=== PATIENT | female | born 1975 | race Caucasian/White ===

== ENCOUNTER 2016-07-15 15:37 | Emergency (ER) | payer OTHER ==
[2016-07-15] MEDS ORDERED: PROCHLORPERAZINE INJ 5 MG/ML 2 ML VIAL IV ONE (17:13)
[2016-07-15 17:20] LABS: Hematocrit 40 % (35-47); Hemoglobin 12.9 g/dl (12.0-16.0); Mean Corpuscular HGB Conc 33 g/dl (31-36); Mean Corpuscular Hemoglobin 27 pg (27-31); Mean Corpuscular Volume 82 fL (80-97); Mean Platelet Volume 11 um3 (7.4-10.4); Red Blood Count 4.83 10^6/ul (4.0-5.4); Red Cell Distribution Width 15 % (10.5-15); White Blood Count 5.3 10^3/ul (3.5-10.8)
[2016-07-15 17:33] LABS: Albumin 4.2 g/dL (3.2-5.2); BUN/Creatinine Ratio 12.5 (8-20); Calcium 9.8 mg/dL (8.6-10.3); EGFR African American 101.2 (>60); EGFR Non-African American 78.7 (>60); Globulin 3.2 g/dL (2-4); Potassium 3.5 mmol/L (3.5-5.0); Total Bilirubin 0.2 mg/dL (0.2-1.0); Total Protein 7.4 g/dL (6.4-8.9)
--- NOTE | 2016-07-15 17:37 | RAD ---
Indication: Pain behind the right, history of aneurysm. CT of the brain was performed without IV contrast. Ventricular structures are midline. No midline shift is noted. The extraction spaces are unremarkable. There is no evidence of intracranial mass or hemorrhage. No other high or low density lesions are identified. IMPRESSION: No intracranial mass or hemorrhage is noted.
[2016-07-15] MEDS ORDERED: Iohexol 350* (CONTRAST) 500 ML MDV IV ONE (18:04)
[2016-07-15] MEDS ORDERED: Ketorolac INJ* 60 MG/2 ML VIAL IV PUSH ONE (19:14)
[2016-07-15] MEDS ORDERED: diPHENhydraMINE IV* 25 MG in NS 0.9% 50 ML* 50 ML IVPB ONE (19:18)
[2016-07-15] MEDS ORDERED: PROCHLORPERAZINE INJ 5 MG/ML 2 ML VIAL IV PRN (19:19)
--- NOTE | 2016-07-15 19:31 | RAD ---
Indication: History of aneurysm, pain behind the right eye. CTA of the head was performed on IV contrast administration. Coronal and sagittal reconstructed images were obtained. Administered 63.7 ml of OMNIPAQUE 350 mgi/ml was given according to hospital protocol. The intracranial carotid arteries demonstrates no evidence of carotid artery dissection. There is a stent in the right cavernous portion of the right internal carotid artery. No aneurysmal dilatation is noted. No branch occlusion is identified. The anterior and middle cerebral arteries are otherwise unremarkable. No branch occlusion is noted. The basilar and posterior cerebral arteries are unremarkable. IMPRESSION: No aneurysmal dilatation is noted. There is a internal carotid artery stent in the intracavernous portion of the right internal carotid artery. No branch occlusion is identified.
[2016-07-15] MEDS ORDERED: Prochlorperazine TAB* 10 MG PO ONE (20:19)
[2016-07-15 21:37] VITALS: BP 141/86
--- NOTE | 2016-07-15 23:54 | ED ---
Headache - HPI Summary HPI Summary: Patient presents to the ED with a complaint of a migraine behind the right eye which is worse with bright lights and has associated N/V. Patient denies fever, neck pain or stiffness, or scotomas. 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 Immediately following, developed 2-3 months of recurrent migraines improved with Imitrex. Since 1 year ago she has not experienced any migraines and has not needed Imitrex. She presents today with a 8/10 pain located on the R side (behind the eye) and has concern for recurrent aneurysm. She states her original dx of aneurysm was associated with a ENCISO of 10/10 pain, and states this feels similar but with less pain overall. She notes that she has been dehydrated lately, which may have triggered a migraine. She is followed by Dr. Pérez. - History Of Current Complaint Chief Complaint: EDHeadache Stated Complaint: HEADACHES/VOMITTING Time Seen by Provider: 07/15/16 16:18 Hx Obtained From: Patient Hx Last Menstrual Period: 5 yrs ago Onset/Duration: Sudden Onset Initially Headache Was: Initial Pain Scale(0-10)= - 8/10, Moderate Currently Pain Is: Current Pain Scale(0-10)= - 8/10, Moderate Timing: Constant Character: Dull, Pressure, Migraine Location of Headache: Other: - behind the eye Aggravating Factor: Bright Lights Associated Signs And Symptoms: Other (Noted In Comments) - photophobia Related History: Similar Episode/DX As: - previous aneurysm pain - Risk Factors SAH Risk Factors: Hypertension Meningitis Risk Factors: Negative SDH Risk Factors: Negative Temporal Arteritis Risk Factors: Female, - Allergies/Home Medications Allergies/Adverse Reactions: Allergies Allergy/AdvReac Type Severity Reaction Status Date / Time Amoxicillin [From Augmentin] Allergy Unknown Verified 07/15/16 15:46 Reaction Details Clavulanic Acid Allergy Unknown Verified 07/15/16 15:46 [From Augmentin] Reaction Details Phenytoin [From Dilantin] Allergy Shortness Verified 07/15/16 15:46 of Breath [place] Allergy Swelling Verified 07/15/16 15:46 Of Face,Lips,& Throat PMH/Surg Hx/FS Hx/Imm Hx Endocrine/Hematology History: Reports: Hx Anticoagulant Therapy - ASA daily, Hx Thyroid Disease Denies: Hx Diabetes Cardiovascular History: Reports: Hx Aneurysm, Hx Angina, Hx Deep Vein Thrombosis - states in leg one month ago, Hx Hypercholesterolemia, Hx Hypertension, Other Cardiovascular Problems/Disorders - DVT, MURMUR, H PYLORI Denies: Hx Angioplasty, Hx Atrial Fibrillation, Hx Congestive Heart Failure, Hx Coronary Artery Disease, Hx Myocardial Infarction, Hx Pacemaker/ICD Respiratory History: Reports: Hx Asthma, Hx Chronic Obstructive Pulmonary Disease (COPD), Hx Seasonal Allergies GI History: Reports: Hx Gastroesophageal Reflux Disease Denies: Other GI Disorders History: Reports: Other Problems/Disorders - states she thinks she has kidney stones Denies: Hx Renal Disease Musculoskeletal History: Reports: Hx Back Problems - slipped disks Sensory History: Reports: Hx Contacts or Glasses Denies: Hx Hearing Aid Opthamlomology History: Reports: Hx Contacts or Glasses Neurological History: Reports: Hx Headaches, Hx Migraine, Hx Transient Ischemic Attacks (TIA) - Unconfirmed by patient, Other Neuro Impairments/Disorders - Cerebral Anuerism, Bi-Polar Denies: Hx Dementia, Hx Seizures Psychiatric History: Reports: Hx Anxiety, Hx Depression, Hx Bipolar Disorder Denies: Hx Panic Disorder, Hx Substance Abuse - Surgical History Surgery Procedure, Year, and Place: , GALLBLADDER, TEETH REMOVED, TUBAL LIGATION, APPENDIX AUG 15 2014. BRAIN- ANEURYSM -STENTS/COIL [facility] -06/01/2016- Hx Anesthesia Reactions: No - Immunization History Date of Tetanus Vaccine: 2013 Date of Influenza Vaccine: 2013 Infectious Disease History: Yes Infectious Disease History: Denies: Hx Hepatitis, Hx Human Immunodeficiency Virus (HIV), Traveled Outside the [place] in Last 30 Days - Family History Known Family History: Positive: Cardiac Disease Family History: Positive fhx of CAD - Social History Occupation: Unemployed Lives: With Family Alcohol Use: Rare Hx Substance Use: No Substance Use Type: Reports: None, Prescribed Hx Tobacco Use: Yes Smoking Status (MU): Heavy Every Day Tobacco Smoker Type: Cigarettes Amount Used/How Often: 5 cig a day currently, was doing 1.5 packs per day before Length of Time of Smoking/Using Tobacco: 20+ years Have You Smoked in the Last Year: Yes Review of Systems Constitutional: Negative Positive: Photophobia Cardiovascular: Negative Respiratory: Negative Gastrointestinal: Negative Musculoskeletal: Negative Skin: Negative Positive: Headache - 8/10 pain Psychological: Normal All Other Systems Reviewed And Are Negative: Yes Physical Exam Triage Information Reviewed: Yes Vital Signs On Initial Exam: Initial Vitals Temp Pulse Resp BP Pulse Ox 99.1 F 99 16 128/74 97 07/15/16 15:47 07/15/16 15:47 07/15/16 15:47 07/15/16 15:47 07/15/16 15:47 Vital Signs Reviewed: Yes Appearance: Positive: Well-Appearing, No Pain Distress, Well-Nourished Skin: Positive: Warm, Dry - dry mucous membranes Head/Face: Positive: Normal Head/Face Inspection Eyes: Positive: Normal, EOMI, Conjunctiva Clear Neck: Positive: Supple, Nontender, No Lymphadenopathy Respiratory/Lung Sounds: Positive: Clear to Auscultation, Breath Sounds Present Cardiovascular: Positive: Normal Abdomen Description: Positive: Nontender, No Organomegaly Musculoskeletal: Positive: Normal, Strength/ROM Intact Neurological: Positive: Normal, Sensory/Motor Intact, Reflexes Intact, Normal Gait, Finger to Nose - OK, Facial Symmetry, Speech Normal Psychiatric: Positive: Normal AVPU Assessment: Alert - Carl Coma Scale Best Eye Response: 4 - Spontaneous Best Motor Response: 6 - Obeys Commands Best Verbal Response: 5 - Oriented Coma Scale Total: 15 Diagnostics - Vital Signs Vital Signs Temp Pulse Resp BP Pulse Ox 07/15/16 21:40 98.1 F 88 14 141/86 07/15/16 21:30 88 141/86 95 07/15/16 21:00 87 125/75 90 07/15/16 20:30 85 112/57 93 07/15/16 20:00 84 128/81 93 07/15/16 19:30 93 132/94 93 07/15/16 19:10 82 95 07/15/16 15:47 99.1 F 99 16 128/74 97 - Laboratory Lab Results: Lab Results 07/15/16 07/15/16 07/15/16 Range/Units 16:50 16:50 16:50 WBC 5.3 (3.5-10.8) 10^3/ul RBC 4.83 (4.0-5.4) 10^6/ul Hgb 12.9 (12.0-16.0) g/dl Hct 40 (35-47) % MCV 82 (80-97) fL MCH 27 (27-31) pg MCHC 33 (31-36) g/dl RDW 15 (10.5-15) % Plt Count 182 (150-450) 10^3/ul MPV 11 H (7.4-10.4) um3 Neut % (Auto) 65.0 (38-83) % Lymph % (Auto) 22.6 L (25-47) % [place] % (Auto) 11.6 H (1-9) % Eos % (Auto) 0.3 (0-6) % Baso % (Auto) 0.5 (0-2) % Absolute Neuts (auto) 3.4 (1.5-7.7) 10^3/ul Absolute Lymphs (auto) 1.2 (1.0-4.8) 10^3/ul Absolute Monos (auto) 0.6 (0-0.8) 10^3/ul Absolute Eos (auto) 0 (0-0.6) 10^3/ul Absolute Basos (auto) 0 (0-0.2) 10^3/ul Absolute Nucleated RBC 0 10^3/ul Nucleated RBC % 0 INR (Anticoag Therapy) 0.99 (0.89-1.11) APTT 30.2 (26.0-36.3) seconds Sodium 137 (133-145) mmol/L Potassium 3.5 (3.5-5.0) mmol/L Chloride 105 (101-111) mmol/L Carbon Dioxide 24 (22-32) mmol/L Anion Gap 8 (2-11) mmol/L BUN 10 (6-24) mg/dL Creatinine 0.80 (0.51-0.95) mg/dL Est GFR ( Amer) 101.2 (>60) Est GFR (Non-Af Amer) 78.7 (>60) BUN/Creatinine Ratio 12.5 (8-20) Glucose 129 H (70-100) mg/dL Calcium 9.8 (8.6-10.3) mg/dL Total Bilirubin 0.20 (0.2-1.0) mg/dL AST 18 (13-39) U/L ALT 26 (7-52) U/L Alkaline Phosphatase 103 (34-104) U/L Total Protein 7.4 (6.4-8.9) g/dL Albumin 4.2 (3.2-5.2) g/dL Globulin 3.2 (2-4) g/dL Albumin/Globulin Ratio 1.3 (1-3) Result Diagrams: 07/15/16 16:50 07/15/16 16:50 Lab Statement: Any lab studies that have been ordered have been reviewed, and results considered in the medical decision making process. - CT No standard instances CT Interpretation: No Acute Changes CT Interpretation Completed By: Radiologist - no changes seen on CT of brain or CTA Headache Course/Dx - Course Course Of Treatment: Patient sent to CT brain. No bleed. Sent to CTA. No acute changes. No focal deficits. Neuro exam WNL. Patient given compazine, benadryl. Patient feeling improved. Sent home with prescription for Compazine. Encouraged benadryl and ibuprofen. No fever, neck pain or stiffness , or scotomas. 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 - Diagnoses Differential Diagnosis/HQI/PQRI: TIA, Migraine, Sinus Headache, Tension Headache Provider Diagnoses: Migraine headache Discharge - Discharge Plan Condition: Stable Disposition: HOME Prescriptions: Prochlorperazine TAB* [Compazine Tab*] 10 mg PO Q6H PRN #10 tab PRN Reason: Nausea Patient Education Materials: Migraine Headache (ED) Referrals: Claudio Gauthier MD [Primary Care Provider] - Ruddy Aguirre MD [Medical Doctor] - Additional Instructions: For abortive therapy of migraine: Take 600mg Ibuprofen, Compazine 10mg and Benadryl 25mg. Follow up with Dr. Pérez for control of migraines.
== END 2016-07-15 21:40 | disposition home or self-care (01) ==
LOC: ED 15:37
DX: G43.909 Migraine, unspecified, not intractable, without status migrainosus (principal); R11.2 Nausea with vomiting, unspecified; F17.210 Nicotine dependence, cigarettes, uncomplicated
CPT/HCPCS: 36415; 70450; 70496; 80053; 85025; 85610; 85730; 96365; 96375; 99283; J0780; J1200; J1885; Q0164; Q9967

== ENCOUNTER → 2016-07-26 10:09 | Day surgery (SDC) | payer OTHER ==
[~2016-07-26 10:09] MED LIST: Buffered Lidocaine 1% SYR 3ML* 3 ML/SYR SYRINGE INTRADERM ONE; DiMENhydriNATE IV* 50 MG/ML VIAL IV PUSH PRN; DiMENhydriNATE IV* 50 MG/ML VIAL ONE; Esmolol* 10 MG/ML 10 ML (100 mg) ONE; Famotidine IV* 10 MG/ML 2 ML (20 mg) IV SLOW PU ONE; Famotidine IV* 10 MG/ML 2 ML (20 mg) ONE; KETAMINE HCL* 50 MG/ML 10 ML VIAL ONE; Lidocaine 1% INJ* 10 MG/ML 30 ML SDV ONE; Lidocaine 2% JELLY* 6 ML JELLY TOPICAL ONE; Lidocaine 2% PF* 10 ML AMP ONE; Midazolam* 1 MG/ML 2 ML VIAL (2 MG) ONE; Ondansetron INJ* 2 MG/ML VIAL ONE; fentaNYL* 50 MCG/ML 2 ML VIAL (100 MCG VIAL) IV PRN; fentaNYL* 50 MCG/ML 2 ML VIAL (100 MCG VIAL) ONE
[2016-07-26 13:52] VITALS: BP 110/76
--- NOTE | 2016-07-26 13:59 | RAD ---
INDICATION: Status post transbronchial biopsy, evaluate for pneumothorax. COMPARISON: Comparison is made with a prior chest x-ray study from June 08, 2016. TECHNIQUE: A portable view of the chest was obtained. FINDINGS: Cardiac and mediastinal contours appear to be within normal limits. There are diffuse reticular nodular infiltrates which are unchanged. No pneumothorax or pleural effusion is seen. IMPRESSION: NO EVIDENCE FOR PNEUMOTHORAX.
--- NOTE | 2016-07-26 14:06 | RAD ---
INDICATION: Bronchoscopy, other disorders of lung COMPARISONS: July 26, 2016 TECHNIQUE: Fluoroscopy was provided for bronchoscopy. Total fluoroscopy time is: 64.7 seconds FINDINGS: A single spot image demonstrates bronchoscope overlying the left hemithorax IMPRESSION: FLUOROSCOPY WAS PROVIDED FOR BRONCHOSCOPY CPT II Codes: 6045F
--- NOTE | 2016-07-27 09:03 | PRO ---
BRONCHOSCOPY REPORT: DATE OF PROCEDURE: 07/26/16 PROCEDURE PERFORMED: Bronchoscopy with transbronchial biopsy on the left side and bronchoalveolar lavage. PREPROCEDURAL DIAGNOSIS: Multiple pulmonary nodules and ground-glass opacities. ANESTHESIA: Conscious sedation. Conscious sedation, Local anesthesia ANESTHESIOLOGIST: Dr. [place]. DESCRIPTION OF PROCEDURE: Informed consent was obtained from the patient prior to the procedure after all the risks and benefits were thoroughly explained. The patient was noted to have multiple pulmonary nodules on recent CT chest. The patient with significant smoking history and interstitial disease was considered in the differential. Given significant smoking history and history of thyroid nodules, metastatic process was considered. The patient was scheduled for bronchoscopy with transbronchial biopsy. The patient was placed supine on operating room table. Franklin Hugger and Venodynes were placed. Appropriate time-out was agreed on by attending staff prior to the procedure. The patient was adequately anesthetized through upper airway and flexible Olympus bronchoscope was inserted through the right naris. The patient had narrowed nasal passage resulting in minimal bleeding during the passage of scope. The patient had significant cough during the procedure which responded to lidocaine. Bronchoscope was inserted into the trachea which was then inspected. No lesions were noted. Minimal secretions were noted and were suctioned. Bronchoscope was then advanced into the right bronchial tree which was inspected. No endobronchial lesions were noted. Bronchoscope was then inserted into the left bronchial tree. No endobronchial lesions were noted. Minimal secretions were noted and were suctioned. Bronchoscope was then stationed in left upper lobe and transbronchial biopsies were obtained with fluoro guidance. Four passes were made and an adequate tissue was obtained. Specimen was placed in formalin and sent to pathology. The patient tolerated the procedure well. Postprocedure chest x-ray was performed and was verified by me. Pending official confirmation from the radiologist. The patient was seen in recovery area in optimal condition. [id number]/[facility] #: [id number] [facility]
== END | disposition home or self-care (01) ==
LOC: OR 10:09
PROVIDERS: ATTEND Internal Medicine
DX: J98.4 Other disorders of lung (principal); F17.210 Nicotine dependence, cigarettes, uncomplicated; G47.33 Obstructive sleep apnea (adult) (pediatric); I10 Essential (primary) hypertension; E03.9 Hypothyroidism, unspecified
CPT/HCPCS: 71010; 87015; 87070; 87102; 87116; 87205; 87206; 88112; 88305; J1240; J2001; J2250; J2405; J3010

== ENCOUNTER 2016-11-09 18:22 | Emergency (ER) | payer OTHER ==
[2016-11-09] MEDS ORDERED: predniSONE TAB* 20 MG PO ONE (20:06)
[2016-11-09] MEDS ORDERED: Albuterol HFA INHALER* 8 gm MDI INH ONE (20:06)
[2016-11-09] MEDS ORDERED: Azithromycin TAB* 250 MG PO ONE (20:07)
--- NOTE | 2016-11-09 20:11 | ED ---
Efra Mcadams Benjamin, scribed for Joseph Mario MD on 11/09/16 at 1957 . Respiratory - HPI Summary HPI Summary: 41yo female with hx of COPD and chronic bronchitis is c/o cough, chest pressure since Sunday night. Pt also reports chills, low greade fever, vomiting, wheezing , and ear pressure. Pt states that her cough keeps her up at night. Pt is concerned about a possible PNA. - History of Current Complaint Chief Complaint: EDUpperRespComplaint Stated Complaint: DIFF BREATHING Time Seen by Provider: 11/09/16 19:43 Hx Obtained From: Patient Onset/Duration: Gradual Onset, Lasting Days - since sunday, Still Present Initial Severity: Mild Current Severity: Mild Pain Intensity: 0 Character: Wheezing, Cough (Nonproductive) Sputum Amount: None Aggravating Factor(s): Nothing Alleviating Factor(s): Nothing Associated Signs and Symptoms: Fever, Wheezing, Chills, Sinus Discomfort - Allergy/Home Medications Allergies/Adverse Reactions: Allergies Allergy/AdvReac Type Severity Reaction Status Date / Time Amoxicillin [From Augmentin] Allergy Severe throat Verified 10/18/16 12:40 closes up Clavulanic Acid Allergy Severe throat Verified 10/18/16 12:40 [From Augmentin] closes up Phenytoin [From Dilantin] Allergy Severe Shortness Verified 10/18/16 12:40 of Breath [place] Allergy Severe Swelling Verified 10/18/16 12:40 Of Face,Lips,& Throat PMH/Surg Hx/FS Hx/Imm Hx Endocrine/Hematology History: Reports: Hx Anticoagulant Therapy - ASA daily, Hx Thyroid Disease Denies: Hx Diabetes Cardiovascular History: Reports: Hx Aneurysm, Hx Angina, Hx Coronary Artery Disease, Hx Deep Vein Thrombosis - states in leg one month ago, Hx Hypercholesterolemia, Hx Hypertension, Other Cardiovascular Problems/Disorders - DVT, MURMUR, H PYLORI Denies: Hx Angioplasty, Hx Atrial Fibrillation, Hx Congestive Heart Failure, Hx Myocardial Infarction, Hx Pacemaker/ICD Respiratory History: Reports: Hx Asthma, Hx Chronic Obstructive Pulmonary Disease (COPD), Hx Seasonal Allergies, Hx Sleep Apnea - does not use machine, Other Respiratory Problems/Disorders GI History: Reports: Hx Gastroesophageal Reflux Disease Denies: Other GI Disorders History: Denies: Hx Renal Disease Comment Only: Other Problems/Disorders - states she thinks she has kidney stones Musculoskeletal History: Reports: Hx Back Problems - slipped disks Sensory History: Reports: Hx Contacts or Glasses - wear glasses day of procedure Denies: Hx Hearing Aid Opthamlomology History: Reports: Hx Contacts or Glasses - wear glasses day of procedure Neurological History: Reports: Hx Headaches, Hx Migraine, Hx Transient Ischemic Attacks (TIA) - Unconfirmed by patient, Other Neuro Impairments/Disorders - Cerebral Anuerysm, Bi-Polar Denies: Hx Dementia, Hx Seizures Psychiatric History: Reports: Hx Anxiety, Hx Depression, Hx Panic Disorder - SEVERE ANXIETY, Hx Bipolar Disorder Denies: Hx Substance Abuse - Surgical History Surgery Procedure, Year, and Place: C [id number] REMOVED-TUBAL LIGATION-APPENDIX 08/15/14. BRAIN ANEURYSM-STENTS/COIL [facility] 06/01/16 -1.5 ONLY. BRONCHOSCOPY WITH TRANSBRONCHIAL BIOPSY 07/26/16 Hx Anesthesia Reactions: Yes - takea a little bit longer for patient to wake up - Immunization History Date of Tetanus Vaccine: 2013 Date of Influenza Vaccine: 2013 Infectious Disease History: No Infectious Disease History: Denies: Hx Hepatitis, Hx Human Immunodeficiency Virus (HIV), Traveled Outside the in Last 30 Days - Family History Known Family History: Positive: Cardiac Disease Family History: Positive fhx of CAD - Social History Occupation: Unemployed Lives: With Family Alcohol Use: None Hx Substance Use: No Substance Use Type: Reports: None, Prescribed Hx Tobacco Use: Yes Smoking Status (MU): Heavy Every Day Tobacco Smoker Type: Cigarettes Amount Used/How Often: 3 cigarettes a day Length of Time of Smoking/Using Tobacco: 20+ years Have You Smoked in the Last Year: Yes Review of Systems Positive: Fever, Chills Eyes: Negative ENT: Negative Cardiovascular: Negative Positive: Cough Positive: Vomiting Genitourinary: Negative Musculoskeletal: Negative Skin: Negative Neurological: Negative Psychological: Normal All Other Systems Reviewed And Are Negative: Yes Physical Exam Triage Information Reviewed: Yes Vital Signs On Initial Exam: Initial Vitals Temp Pulse Resp BP Pulse Ox 97.8 F 86 20 140/87 94 11/09/16 18:24 11/09/16 18:24 11/09/16 18:24 11/09/16 18:24 11/09/16 18:24 Vital Signs Reviewed: Yes Appearance: Positive: Well-Appearing, No Pain Distress, Obese Skin: Positive: Warm, Skin Color Reflects Adequate Perfusion, Dry Head/Face: Positive: Normal Head/Face Inspection Eyes: Positive: EOMI, XIAO ENT: Positive: Hearing grossly normal, Pharynx normal, TM bulging - right TM. Negative: TMs normal, TM red Neck: Positive: Supple, Nontender Respiratory/Lung Sounds: Positive: Breath Sounds Present, Wheezes - bilateral Cardiovascular: Positive: RRR Abdomen Description: Positive: Nontender, No Organomegaly, Soft Bowel Sounds: Positive: Present Musculoskeletal: Positive: Normal, Strength/ROM Intact Neurological: Positive: Normal, Sensory/Motor Intact Psychiatric: Positive: Normal, Affect/Mood Appropriate - Carl Coma Scale Coma Scale Total: 15 Diagnostics - Vital Signs Vital Signs Temp Pulse Resp BP Pulse Ox 11/09/16 18:24 97.8 F 86 20 140/87 94 - Laboratory Lab Statement: Any lab studies that have been ordered have been reviewed, and results considered in the medical decision making process. Disposition - Course Course Of Treatment: NO CRITICAL CARE TIME Assessment/Plan: DISCUSSED CXR AND LABS WITH PATIENT. AT THIS TIME, WILL TREAT WITH ZPAC AND PREDNISONE. PATIENT WILL RETURN IF WORSE, DECLINES CXR/LABS AT THIS TIME. DISCHARGE HOME STABLE. - Diagnoses Provider Diagnoses: COPD (chronic obstructive pulmonary disease), Bronchitis Discharge - Discharge Plan Condition: Stable Disposition: HOME Prescriptions: Azithromycin TAB* [Zithromax TAB (Z-BELINDA) 250 mg #6 tabs] 250 mg PO DAILY #4 tab predniSONE TAB* [Deltasone TAB*] 40 mg PO DAILY #8 tab Patient Education Materials: COPD (Chronic Obstructive Pulmonary Disease) (ED) , Acute Bronchitis (ED) Referrals: Claudio Gauthier MD [Primary Care Provider] - Additional Instructions: FOLLOW UP WITH YOUR DOCTOR. RETURN TO THE EMERGENCY DEPARTMENT FOR ANY WORSENING OF YOUR CONDITION; SHORTNESS OF BREATH, YOU FEEL ILL OR QUESTIONS OR CONCERNS. The documentation as recorded by the Efra carranza Benjamin accurately reflects the service I personally performed and the decisions made by me, Joseph Mario MD.
[2016-11-09 20:36] VITALS: BP 106/62
== END 2016-11-09 20:34 | disposition home or self-care (01) ==
LOC: ED 18:22
DX: J44.0 Chronic obstructive pulmonary disease with (acute) lower respiratory infection (principal); J20.9 Acute bronchitis, unspecified; F17.210 Nicotine dependence, cigarettes, uncomplicated; Z79.82 Long term (current) use of aspirin; Z88.0 Allergy status to penicillin
CPT/HCPCS: 99283; A9270-GY; J7512

== ENCOUNTER 2016-11-24 17:48 | Emergency (ER) | payer OTHER ==
[2016-11-24] MEDS ORDERED: Albuterol/Ipratropium NEB.SOL* Albuterol 2.5 MG/Ipratropium 0.5 MG 3 ML INH ONE (18:14)
[2016-11-24] MEDS ORDERED: predniSONE TAB* 20 MG PO ONE (18:14)
--- NOTE | 2016-11-24 18:14 | UC ---
Respiratory Complaint HPI - HPI Summary HPI Summary: has had SOB for 3 weeks was hospitalized 3 weeks ago and breathing is not much better no fevers - History of Current Complaint Chief Complaint: UCRespiratory Stated Complaint: DIFFICULTY BREATHING,EAR PAIN Time Seen by Provider: 11/24/16 18:07 Hx Obtained From: Patient Hx Last Menstrual Period: 5 yrs ago ?: No Onset/Duration: Gradual Onset, Lasting Weeks, Still Present Timing: Constant Character: Cough: Nonproductive Aggravating Factors: Exertion, Deep Breaths, Recumbent Position Alleviating Factors: Nothing Associated Signs And Symptoms: Positive: Dyspnea, Pleuritic Chest Pain, Wheezing , URI - Allergies/Home Medications Allergies/Adverse Reactions: Allergies Allergy/AdvReac Type Severity Reaction Status Date / Time Amoxicillin [From Augmentin] Allergy Severe throat Verified 11/24/16 17:55 closes up Clavulanic Acid Allergy Severe throat Verified 11/24/16 17:55 [From Augmentin] closes up Phenytoin [From Dilantin] Allergy Severe Shortness Verified 11/24/16 17:55 of Breath [place] Allergy Severe Swelling Verified 11/24/16 17:55 Of Face,Lips,& Throat sweet potatoe pie Allergy Swelling Uncoded 11/24/16 17:55 Of Face,Lips,& Throat Home Medications: Home Medications oxyCODONE/Acetamin 5/325 MG* [Percocet 5/325 TAB*] 1 tab PO SEE INSTRUCTIONS 03/04 [History Confirmed 11/24/16] PMH/Surg Hx/FS Hx/Imm Hx Previously Healthy: No Cardiovascular History: Cardiac Disease Respiratory History: COPD GI/ History: Gastroesophageal Reflux Psychological History: Anxiety Other History Of: Anticoagulant Therapy - ASA daily - Surgical History Surgical History: Yes Surgery Procedure, Year, and Place: C [id number] REMOVED-TUBAL LIGATION-APPENDIX 08/15/14. BRAIN ANEURYSM-STENTS/[facility] 06/01/16 -1.5 ONLY. BRONCHOSCOPY WITH TRANSBRONCHIAL BIOPSY 07/26/16 - Family History Known Family History: Positive: Cardiac Disease Family History: Positive fhx of CAD - Social History Occupation: Disabled Lives: With Family Alcohol Use: None Substance Use Type: None, Prescribed Smoking Status (MU): Light Every Day Tobacco Smoker Type: Cigarettes Amount Used/How Often: 8 cigarettes a day recently---but usually 2ppd for 30 years Length of Time of Smoking/Using Tobacco: 20+ years Have You Smoked in the Last Year: Yes Household Exposure Type: Cigarettes Cessation Counseling: Counseled 3+Min - 10 Min - Immunization History Most Recent Influenza Vaccination: 2014 Most Recent Tetanus Shot: up to date Most Recent Pneumonia Vaccination: 2014 Review of Systems Constitutional: Negative Skin: Negative Eyes: Negative ENT: Negative, Ear Ache - right Respiratory: Shortness Of Breath, Cough Cardiovascular: Negative Gastrointestinal: Negative Genitourinary: Negative Motor: Negative Neurovascular: Negative Musculoskeletal: Negative Neurological: Negative Psychological: Negative All Other Systems Reviewed And Are Negative: Yes Physical Exam Triage Information Reviewed: Yes Appearance: Ill-Appearing, Pain Distress, Obese Vital Signs: Initial Vital Signs Temp 97.6 F 11/24/16 17:51 Pulse 86 11/24/16 17:51 Resp 18 11/24/16 17:51 BP 123/86 11/24/16 17:51 Pulse Ox 93 11/24/16 17:51 Vital Signs Reviewed: Yes Eye Exam: Normal Eyes: Positive: Conjunctiva Clear ENT Exam: Normal ENT: Positive: Normal ENT inspection, Hearing grossly normal, Pharynx normal, TMs normal. Negative: Nasal congestion, Nasal drainage, Tonsillar swelling, Tonsillar exudate, Trismus, Muffled/hoarse voice Dental Exam: Normal Neck exam: Normal Neck: Positive: Supple, Nontender, No Lymphadenopathy Respiratory Exam: Normal Respiratory: Positive: Respiratory distress, Decreased breath sounds Cardiovascular Exam: Normal Cardiovascular: Positive: RRR, No Murmur, Pulses Normal, Brisk Capillary Refill Abdominal Exam: Normal Musculoskeletal Exam: Normal Musculoskeletal: Positive: Strength Intact, ROM Intact, No Edema Neurological Exam: Normal Neurological: Positive: Alert, Muscle Tone Normal Psychological Exam: Normal Skin Exam: Normal UC Diagnostic Evaluation - Laboratory O2 Sat by Pulse Oximetry: 93 - Radiology Xray Interpretation: Positive (See Comments) - interval progression of atypical pneumonia Radiology Interpretation Completed By: Radiologist - EKG Cardiac Rate: NL Cardiac Rhythm: Sinus: Normal Ectopy: None ST Segment: Normal Re-Evaluation - Re-Evaluation First Eval Change: Unchanged - continues to feel SOB sat 89-91% Respiratory Course/Dx - Course Course Of Treatment: to [facility] [place] higher level of care - Differential Dx/Diagnosis Differential Diagnosis/HQI/PQRI: Bronchitis, Exacerbation Of COPD, Lower Resp Infection Provider Diagnoses: HYpoxemia, SOB Discharge - Discharge Plan Condition: Guarded Disposition: AGAINST MEDICAL ADVICE
[2016-11-24] MEDS ORDERED: Albuterol 2.5 MG/3 ML NEB.SOL* (0.083%) INH ONE (19:39)
--- NOTE | 2016-11-24 19:42 | RAD ---
INDICATION: COPD and shortness of breath. COMPARISON: Comparison is made with a prior chest x-ray study from June 08, [address] of the chest from June 15, 2016. Correlation is also made with a prior chest x-ray study from November 04, 2015. TECHNIQUE: Dual-energy PA and lateral views of the chest were obtained. FINDINGS: The heart is within normal limits in size. Mediastinal and hilar contours appear within normal limits. There are diffuse reticular nodular infiltrates which have progressed from the prior study. IMPRESSION: DIFFUSE RETICULONODULAR INFILTRATES DEMONSTRATING INTERVAL PROGRESSION. CONSIDER ATYPICAL PNEUMONIA, HISTOPLASMOSIS, FUNGAL INFECTION, PNEUMOCYSTIS, TUBERCULOSIS, COLLAGEN VASCULAR DISORDERS, RHEUMATOID LUNG, SCLERODERMA SARCOIDOSIS, DRUG REACTION ASSOCIATED CHANGES, INHALATION LUNG DISEASE AND SUGGEST PULMONARY CONSULTATION.
[2016-11-24 20:32] VITALS: BP 136/73
== END 2016-11-24 20:20 | disposition left against medical advice (07) ==
LOC: UCEAST 17:48
DX: R09.02 Hypoxemia (principal); K21.9 Gastro-esophageal reflux disease without esophagitis; J44.9 Chronic obstructive pulmonary disease, unspecified; I25.10 Atherosclerotic heart disease of native coronary artery without angina pectoris; F41.9 Anxiety disorder, unspecified; F17.210 Nicotine dependence, cigarettes, uncomplicated; E66.9 Obesity, unspecified; R06.02 Shortness of breath; Z88.3 Allergy status to other anti-infective agents; Z79.82 Long term (current) use of aspirin
CPT/HCPCS: 71020; 93005; 99213; A9270-GY; G0463; J7512

== ENCOUNTER 2016-11-24 20:39 | Inpatient (IN) | payer OTHER ==
[2016-11-24] MEDS ORDERED: Albuterol/Ipratropium NEB.SOL* Albuterol 2.5 MG/Ipratropium 0.5 MG 3 ML INH ONE (21:22)
[2016-11-24] MEDS ORDERED: Levofloxacin 750 MG IVPREMIX(* 750 MG/150 ML BAG IVPB ONE (21:35)
[2016-11-24] MEDS ORDERED: NS 0.9% 1000 ML* 2,000 ML IV ONE (21:35)
[2016-11-24] MEDS ORDERED: methylPREDNISolone 125 MG* 2 ML VIAL IV ONE (21:35)
[2016-11-24 22:13] LABS: Hematocrit 41 % (35-47); Hemoglobin 13.2 g/dl (12.0-16.0); Mean Corpuscular HGB Conc 32 g/dl (31-36); Mean Corpuscular Hemoglobin 26 pg (27-31); Mean Corpuscular Volume 80 fL (80-97); Mean Platelet Volume 10 um3 (7.4-10.4); Red Cell Distribution Width 15 % (10.5-15); White Blood Count 7.1 10^3/ul (3.5-10.8)
[2016-11-24] MEDS ORDERED: ALPRAZolam TAB* 0.25 MG PO ONE (22:33)
[2016-11-24 22:36] LABS: Albumin 4.4 g/dL (3.2-5.2); BUN/Creatinine Ratio 12.2 (8-20); Calcium 10.1 mg/dL (8.6-10.3); EGFR African American 87.9 (>60); EGFR Non-African American 68.3 (>60); Globulin 3.3 g/dL (2-4); Potassium 4.2 mmol/L (3.5-5.0); Total Bilirubin 0.3 mg/dL (0.2-1.0); Total Protein 7.7 g/dL (6.4-8.9)
[2016-11-24 22:38] LABS: Troponin I 0.01 ng/mL (<0.04)
[2016-11-24 23:54] LABS: C Reactive Protein 61.01 mg/L (< 5.00)
--- NOTE | 2016-11-25 01:39 | ED ---
Miles Mcadams Alok, scribed for Flaquito Coto MD on 11/24/16 at 2214 . Shortness of Breath - HPI Summary HPI Summary: 41F presents to the ED sent her from with SOB while at rest. Pt states she was at the ED two-weeks ago for the same SOB and was discharged home with a Zpak and Prednisone. Pt states that the Prednisone slightly improved her SOB temporarily before worsening again. Pt states her SOB is worsened with supine position and is accompanied by wheezing. Pt notes CP earlier today which has subsided since. Pt notes vomiting. Pt notes cough. Pt notes diaphoresis. Pt denies fever or chills. Pt denies lower extremity edema or leg pain. PMHx includes COPD, HTN, Thyroid, h/o brain aneurysm. Pt denies h/o PE or DVT. Pt takes no anti-coagulants besides aspirin. Pt smokes tobacco. - History of Current Complaint Chief Complaint: EDShortnessOfBreath Time Seen by Provider: 11/24/16 21:21 Hx Obtained From: Patient Onset/Duration: Lasting Weeks, Still Present Timing: Constant Current Severity: Moderate Dyspnea At: Rest Aggrevating Factors: Recumbent Position Alleviating Factors: Nothing Associated Signs & Symptoms: Cough (Nonproductive), Diaphoresis - Allergy/Home Medications Allergies/Adverse Reactions: Allergies Allergy/AdvReac Type Severity Reaction Status Date / Time Amoxicillin [From Augmentin] Allergy Severe throat Verified 11/24/16 17:55 closes up Clavulanic Acid Allergy Severe throat Verified 11/24/16 17:55 [From Augmentin] closes up Phenytoin [From Dilantin] Allergy Severe Shortness Verified 11/24/16 17:55 of Breath [place] Allergy Severe Swelling Verified 11/24/16 17:55 Of Face,Lips,& Throat sweet potatoe pie Allergy Swelling Uncoded 11/24/16 17:55 Of Face,Lips,& Throat Home Medications: Home Medications Vitamin E 11/24/16 [History] PMH/Surg Hx/FS Hx/Imm Hx Endocrine/Hematology History: Reports: Hx Anticoagulant Therapy - ASA daily, Hx Thyroid Disease Denies: Hx Diabetes Cardiovascular History: Reports: Hx Aneurysm, Hx Angina, Hx Coronary Artery Disease, Hx Deep Vein Thrombosis - states in leg one month ago, Hx Hypercholesterolemia, Hx Hypertension, Other Cardiovascular Problems/Disorders - DVT, MURMUR, H PYLORI Denies: Hx Angioplasty, Hx Atrial Fibrillation, Hx Congestive Heart Failure, Hx Myocardial Infarction, Hx Pacemaker/ICD Respiratory History: Reports: Hx Asthma - states "not so much.", Hx Chronic Obstructive Pulmonary Disease (COPD) - YES, Hx Seasonal Allergies, Hx Sleep Apnea - does not use machine, Other Respiratory Problems/Disorders GI History: Reports: Hx Gastroesophageal Reflux Disease Denies: Other GI Disorders History: Denies: Hx Renal Disease Comment Only: Other Problems/Disorders - states she thinks she has kidney stones Musculoskeletal History: Reports: Hx Back Problems - slipped disks Sensory History: Reports: Hx Contacts or Glasses - wear glasses day of procedure Denies: Hx Hearing Aid Opthamlomology History: Reports: Hx Contacts or Glasses - wear glasses day of procedure Neurological History: Reports: Hx Headaches, Hx Migraine, Hx Transient Ischemic Attacks (TIA) - Unconfirmed by patient, Other Neuro Impairments/Disorders - Cerebral Anuerysm, Bi-Polar Denies: Hx Dementia, Hx Seizures Psychiatric History: Reports: Hx Anxiety, Hx Depression, Hx Panic Disorder - SEVERE ANXIETY, Hx Bipolar Disorder Denies: Hx Substance Abuse - Surgical History Surgery Procedure, Year, and Place: C [id number] REMOVED-TUBAL LIGATION-APPENDIX 08/15/14. BRAIN ANEURYSM-STENTS/COIL [facility] [place] 06/01/16 -1.5 ONLY. BRONCHOSCOPY WITH TRANSBRONCHIAL BIOPSY 07/26/16 Hx Anesthesia Reactions: Yes - takea a little bit longer for patient to wake up - Immunization History Date of Tetanus Vaccine: 2013 Date of Influenza Vaccine: 2013 Infectious Disease History: No Infectious Disease History: Denies: Hx Hepatitis, Hx Human Immunodeficiency Virus (HIV), Traveled Outside the [place] in Last 30 Days - Family History Known Family History: Positive: Cardiac Disease Family History: Positive fhx of CAD - Social History Alcohol Use: None Hx Substance Use: No Substance Use Type: Reports: None, Prescribed Hx Tobacco Use: Yes Smoking Status (MU): Light Every Day Tobacco Smoker Type: Cigarettes Amount Used/How Often: 8 cigarettes a day recently---but usually 2ppd for 30 years Length of Time of Smoking/Using Tobacco: 20+ years Have You Smoked in the Last Year: Yes Review of Systems Positive: Skin Diaphoresis. Negative: Fever, Chills Positive: Chest Pain Positive: Shortness Of Breath, Cough, Other - wheezing Positive: Vomiting Negative: Edema All Other Systems Reviewed And Are Negative: Yes Physical Exam - Summary Physical Exam Summary: The patient is well-nourished in no acute distress and in no acute pain. The skin is warm and diaphoretic. Skin color reflects adequate perfusion. Good skin turgor. HEENT: The head is normocephalic and atraumatic. The pupils are equal and reactive. The conjunctivae are clear and without drainage. Nares are patent and without drainage. Mouth reveals dry mucous membranes and the throat is without erythema and exudate. The external ears are intact. The ear canals are patent and without drainage. The tympanic membranes are intact. No rhinorrhea. Patient possibly hard of hearing. Neck is supple with full range of motion and non-tender. There are no carotid bruits. Positive neck vein distension. Respiratory: Chest is non-tender. Lungs are clear to auscultation. Diminished breath sounds. No Rales. No Rhonchi. No retractions Cardiovascular: Hear is regular rate and rhythm. There is no murmur or rub auscultated. There is no peripheral edema and pulses are symmetrical and equal. Abdomen: The abdomen is soft and non-tender. There are normal bowel sounds heard in all four quadrants and there is no organomegaly palpated. Musculoskeletal: There is no back pain noted. Extremities are non-tender with full range of motion. There is good capillary refill. There is no peripheral edema or calf tenderness elicited. Neurological: Patient is alert and oriented to person, place and time. The patient has symmetrical motor strength in all four extremities. Cranial nerves are grossly intact. Deep tendon reflexes are symmetrical and equal in all four extremities. Psychiatric: The patient has an appropriate affect and does not exhibit any anxiety or depression. Triage Information Reviewed: Yes Vital Signs On Initial Exam: Initial Vitals Temp Pulse BP Pulse Ox 98 F 102 141/87 93 11/24/16 20:47 11/24/16 20:47 11/24/16 20:47 11/24/16 20:47 Vital Signs Reviewed: Yes - Carl Coma Scale Coma Scale Total: 15 Diagnostics - Vital Signs Vital Signs Temp Pulse Resp BP Pulse Ox 11/24/16 21:23 96 20 96 11/24/16 21:22 96.2 F 93 20 124/61 88 11/24/16 20:47 98 F 102 141/87 93 - Laboratory Lab Results: Lab Results 11/24/16 11/24/16 11/24/16 Range/Units 21:55 21:55 21:55 WBC 7.1 (3.5-10.8) 10^3/ul RBC 5.10 (4.0-5.4) 10^6/ul Hgb 13.2 (12.0-16.0) g/dl Hct 41 (35-47) % MCV 80 (80-97) fL MCH 26 L (27-31) pg MCHC 32 (31-36) g/dl RDW 15 (10.5-15) % Plt Count 141 L (150-450) 10^3/ul MPV 10 (7.4-10.4) um3 Neut % (Auto) 82.6 (38-83) % Lymph % (Auto) 11.3 L (25-47) % [place] % (Auto) 5.0 (1-9) % Eos % (Auto) 0.2 (0-6) % Baso % (Auto) 0.9 (0-2) % Absolute Neuts (auto) 5.9 (1.5-7.7) 10^3/ul Absolute Lymphs (auto) 0.8 L (1.0-4.8) 10^3/ul Absolute Monos (auto) 0.4 (0-0.8) 10^3/ul Absolute Eos (auto) 0 (0-0.6) 10^3/ul Absolute Basos (auto) 0.1 (0-0.2) 10^3/ul Absolute Nucleated RBC 0 10^3/ul Nucleated RBC % 0 Sodium 133 (133-145) mmol/L Potassium 4.2 (3.5-5.0) mmol/L Chloride 100 L (101-111) mmol/L Carbon Dioxide 24 (22-32) mmol/L Anion Gap 9 (2-11) mmol/L BUN 11 (6-24) mg/dL Creatinine 0.90 (0.51-0.95) mg/dL Est GFR ( Amer) 87.9 (>60) Est GFR (Non-Af Amer) 68.3 (>60) BUN/Creatinine Ratio 12.2 (8-20) Glucose 169 H (70-100) mg/dL Lactic Acid 2.0 (0.5-2.0) mmol/L Calcium 10.1 (8.6-10.3) mg/dL Total Bilirubin 0.30 (0.2-1.0) mg/dL AST 34 (13-39) U/L ALT 46 (7-52) U/L Alkaline Phosphatase 129 H (34-104) U/L Troponin I 0.01 (<0.04) ng/mL C-Reactive Protein 61.01 H (< 5.00) mg/L B-Natriuretic Peptide ( - 100) pg/mL Total Protein 7.7 (6.4-8.9) g/dL Albumin 4.4 (3.2-5.2) g/dL Globulin 3.3 (2-4) g/dL Albumin/Globulin Ratio 1.3 (1-3) 11/24/16 Range/Units 21:55 WBC (3.5-10.8) 10^3/ul RBC (4.0-5.4) 10^6/ul Hgb (12.0-16.0) g/dl Hct (35-47) % MCV (80-97) fL MCH (27-31) pg MCHC (31-36) g/dl RDW (10.5-15) % Plt Count (150-450) 10^3/ul MPV (7.4-10.4) um3 Neut % (Auto) (38-83) % Lymph % (Auto) (25-47) % [place] % (Auto) (1-9) % Eos % (Auto) (0-6) % Baso % (Auto) (0-2) % Absolute Neuts (auto) (1.5-7.7) 10^3/ul Absolute Lymphs (auto) (1.0-4.8) 10^3/ul Absolute Monos (auto) (0-0.8) 10^3/ul Absolute Eos (auto) (0-0.6) 10^3/ul Absolute Basos (auto) (0-0.2) 10^3/ul Absolute Nucleated RBC 10^3/ul Nucleated RBC % Sodium (133-145) mmol/L Potassium (3.5-5.0) mmol/L Chloride (101-111) mmol/L Carbon Dioxide (22-32) mmol/L Anion Gap (2-11) mmol/L BUN (6-24) mg/dL Creatinine (0.51-0.95) mg/dL Est GFR ( Amer) (>60) Est GFR (Non-Af Amer) (>60) BUN/Creatinine Ratio (8-20) Glucose (70-100) mg/dL Lactic Acid (0.5-2.0) mmol/L Calcium (8.6-10.3) mg/dL Total Bilirubin (0.2-1.0) mg/dL AST (13-39) U/L ALT (7-52) U/L Alkaline Phosphatase (34-104) U/L Troponin I (<0.04) ng/mL C-Reactive Protein (< 5.00) mg/L B-Natriuretic Peptide 21 ( - 100) pg/mL Total Protein (6.4-8.9) g/dL Albumin (3.2-5.2) g/dL Globulin (2-4) g/dL Albumin/Globulin Ratio (1-3) Result Diagrams: 11/24/16 21:55 11/24/16 21:55 Lab Statement: Any lab studies that have been ordered have been reviewed, and results considered in the medical decision making process. Re-Evaluation - Re-Evaluation First Eval Re-Evaluation Time: 23:04 Change: Unchanged Comment: Pt has PNA. Will seek hospitalist for pt admit. Course/Dx - Diagnoses Differential Diagnosis/HQI/PQRI: Positive: Bronchitis, COPD Exacerbation, Pneumonia Provider Diagnoses: PNA (pneumonia), COPD (chronic obstructive pulmonary disease), Hypoxemia, Anxiety - Physician Notifications Discussed Care of Patient With: Shmuel Hernandez - Will admit pt Time Discussed With Above Provider: 23:32 Discharge - Discharge Plan Condition: Stable Disposition: ADMITTED TO [facility] Referrals: Claudio Gauthier MD [Primary Care Provider] - The documentation as recorded by the Miles carranza Alok accurately reflects the service I personally performed and the decisions made by me, Flaquito Coto MD.
--- NOTE | 2016-11-25 02:13 | HP ---
H&P (Free Text) History and Physical: PCP: Hallie Gauthier MD Date/Time of Evaluation: 11/25/2016 0200 CC: SOB HPI: Mrs Aden is a 41YO female HX COPD presenting with SOB severe enough she has cut her smoking back from 2PPD to 1/2PPD. She was seen ~2 weeks ago for the same and treated with azithromycin & prednisone, but her cough and SOB have gradually worsened. She does admit to sharp L-sided chest pain only with coughing. Lying flat makes the coughing worse. She denies headache, sore throat , open wound, abdominal pain, or other issues. Of note, she has had a reticulonodular infiltrative process in the lungs as far back as a CTA chest dated 08/15/2015. She is followed by Elvira Sebastian MD pulmonology with recent bronchoscopy & BX with negative findings. PMedHx R ICA para-ophthalmic aneurysm s/p coiling COPD HTN hypothyroidism migraines GERD bipolar disorder depression anxiety Ambulatory Orders Atenolol TAB* [Tenormin TAB*] 25 mg PO DAILY 12/26/14 Omeprazole CAP* [PriLOSEC CAP*] 40 mg PO DAILY 12/26/14 Fluticas/Salmet 115/21 HFA(NF) [Advair HFA 115/21 (NF)] 1 - 2 puff INH BID 03/18 Levothyroxine TAB* [Synthroid TAB*] 137 mcg PO DAILY 03/18/15 QUEtiapine XR TAB* [SEROquel Xr TAB*] 400 mg PO BEDTIME 03/18/15 risperiDONE TAB* [RisperDAL*] 3 mg PO BID 03/18/15 Albuterol 0.5% CONC NEB.ESTEE* [Albuterol 0.5ol*] 1 mg .SEE ORDER Q6H PRN Vitamin D CAP* [Drisdol CAP*] 50,000 units PO WEEKLY 03/22/15 Baclofen TAB* [Lioresal TAB*] 10 mg PO TID PRN #15 tab 10/06/15 Aspirin EC Low Dose* [Ecotrin EC Low Dose*] 81 mg PO DAILY 07/24/16 Xanax 1 mg PO DAILY 07/26/16 Vitamin E 11/24/16 oxyCODONE/Acetamin 5/325 MG* [Percocet 5/325 TAB*] 1 tab PO SEE INSTRUCTIONS 03/04 Allergies Amoxicillin [From Augmentin] Allergy (Severe, Verified 11/24/16 17:55) throat closes up Clavulanic Acid [From Augmentin] Allergy (Severe, Verified 11/24/16 17:55) throat closes up Phenytoin [From Dilantin] Allergy (Severe, Verified 11/24/16 17:55) Shortness of Breath [place] Allergy (Severe, Verified 11/24/16 17:55) Swelling Of Face,Lips,& Throat sweet potatoe pie Allergy (Uncoded 11/24/16 17:55) Swelling Of Face,Lips,& Throat PSurgHx appendectomy cerebral aneurysm coiling SocHx: denies alcohol & recreational drugs; FamHx: positive for HTN ROS: as above, otherwise reviewed and all were negative Constitutional: NAD, normally developed, obese white female vitals: Vital Signs Temp 35.7 C 11/24/16 21:22 Pulse 103 11/24/16 23:00 Resp 18 11/24/16 23:00 BP 118/66 11/24/16 23:00 Pulse Ox 90 11/24/16 23:00 Intake & Output 11/24/16 11/24/16 11/25/16 11:59 23:59 11:59 Weight 95.254 kg HEENM: atraumatic; sclera/conjunctiva: non-icteric/clear; hearing: clinically intact; oropharynx: clear, mucosa moist Neck: soft tissue: non-tender; thyroid: normal Pulmonary: clear to auscultation bilaterally, good aeration, no accessory muscle use CV: RR/RR, normal S1S2, no carotid bruit, no jugular venous distention, 2+ B DP/ PT, no edema Abdominal: soft, non-distended, non-tender, no rebound/guarding/rigidity, normoactive bowel sounds, no hepatosplenomegaly or masses, no costovertebral angle tenderness Integumental: normal appearance and texture of exposed skin Psychiatric orientation: AA&O to PPS affect: calm mood: cooperative eye contact: good content: reliable responses: timely insight: fair Testing: Lab Results 11/24/16 11/24/16 11/24/16 Range/Units 21:55 21:55 21:55 WBC 7.1 (3.5-10.8) 10^3/ul RBC 5.10 (4.0-5.4) 10^6/ul Hgb 13.2 (12.0-16.0) g/dl Hct 41 (35-47) % MCV 80 (80-97) fL MCH 26 L (27-31) pg MCHC 32 (31-36) g/dl RDW 15 (10.5-15) % Plt Count 141 L (150-450) 10^3/ul MPV 10 (7.4-10.4) um3 Neut % (Auto) 82.6 (38-83) % Lymph % (Auto) 11.3 L (25-47) % [place] % (Auto) 5.0 (1-9) % Eos % (Auto) 0.2 (0-6) % Baso % (Auto) 0.9 (0-2) % Absolute Neuts (auto) 5.9 (1.5-7.7) 10^3/ul Absolute Lymphs (auto) 0.8 L (1.0-4.8) 10^3/ul Absolute Monos (auto) 0.4 (0-0.8) 10^3/ul Absolute Eos (auto) 0 (0-0.6) 10^3/ul Absolute Basos (auto) 0.1 (0-0.2) 10^3/ul Absolute Nucleated RBC 0 10^3/ul Nucleated RBC % 0 Sodium 133 (133-145) mmol/L Potassium 4.2 (3.5-5.0) mmol/L Chloride 100 L (101-111) mmol/L Carbon Dioxide 24 (22-32) mmol/L Anion Gap 9 (2-11) mmol/L BUN 11 (6-24) mg/dL Creatinine 0.90 (0.51-0.95) mg/dL Est GFR ( Amer) 87.9 (>60) Est GFR (Non-Af Amer) 68.3 (>60) BUN/Creatinine Ratio 12.2 (8-20) Glucose 169 H (70-100) mg/dL Lactic Acid 2.0 (0.5-2.0) mmol/L Calcium 10.1 (8.6-10.3) mg/dL Total Bilirubin 0.30 (0.2-1.0) mg/dL AST 34 (13-39) U/L ALT 46 (7-52) U/L Alkaline Phosphatase 129 H (34-104) U/L Troponin I 0.01 (<0.04) ng/mL C-Reactive Protein 61.01 H (< 5.00) mg/L B-Natriuretic Peptide ( - 100) pg/mL Total Protein 7.7 (6.4-8.9) g/dL Albumin 4.4 (3.2-5.2) g/dL Globulin 3.3 (2-4) g/dL Albumin/Globulin Ratio 1.3 (1-3) 11/24/16 Range/Units 21:55 WBC (3.5-10.8) 10^3/ul RBC (4.0-5.4) 10^6/ul Hgb (12.0-16.0) g/dl Hct (35-47) % MCV (80-97) fL MCH (27-31) pg MCHC (31-36) g/dl RDW (10.5-15) % Plt Count (150-450) 10^3/ul MPV (7.4-10.4) um3 Neut % (Auto) (38-83) % Lymph % (Auto) (25-47) % [place] % (Auto) (1-9) % Eos % (Auto) (0-6) % Baso % (Auto) (0-2) % Absolute Neuts (auto) (1.5-7.7) 10^3/ul Absolute Lymphs (auto) (1.0-4.8) 10^3/ul Absolute Monos (auto) (0-0.8) 10^3/ul Absolute Eos (auto) (0-0.6) 10^3/ul Absolute Basos (auto) (0-0.2) 10^3/ul Absolute Nucleated RBC 10^3/ul Nucleated RBC % Sodium (133-145) mmol/L Potassium (3.5-5.0) mmol/L Chloride (101-111) mmol/L Carbon Dioxide (22-32) mmol/L Anion Gap (2-11) mmol/L BUN (6-24) mg/dL Creatinine (0.51-0.95) mg/dL Est GFR ( Amer) (>60) Est GFR (Non-Af Amer) (>60) BUN/Creatinine Ratio (8-20) Glucose (70-100) mg/dL Lactic Acid (0.5-2.0) mmol/L Calcium (8.6-10.3) mg/dL Total Bilirubin (0.2-1.0) mg/dL AST (13-39) U/L ALT (7-52) U/L Alkaline Phosphatase (34-104) U/L Troponin I (<0.04) ng/mL C-Reactive Protein (< 5.00) mg/L B-Natriuretic Peptide 21 ( - 100) pg/mL Total Protein (6.4-8.9) g/dL Albumin (3.2-5.2) g/dL Globulin (2-4) g/dL Albumin/Globulin Ratio (1-3) CXR, personally reviewed: IMPRESSION: DIFFUSE RETICULONODULAR INFILTRATES DEMONSTRATING INTERVAL PROGRESSION. CONSIDER ATYPICAL PNEUMONIA, HISTOPLASMOSIS , FUNGAL INFECTION, PNEUMOCYSTIS, TUBERCULOSIS, COLLAGEN VASCULAR DISORDERS, RHEUMATOID LUNG, SCLERODERMA SARCOIDOSIS, DRUG REACTION ASSOCIATED CHANGES, INHALATION LUNG DISEASE AND SUGGEST PULMONARY CONSULTATION. Impression: 41F presenting with SOB, worsening CXR, & new hypoxia DIAGNOSIS & PLAN Primary B pulmonary infiltrates w/ new hypoxia ? etiology as her CT chest has shown reticulonodular infiltrates back to 07/2015 : recent bronchoscopic washings & BX negative : followed outpatient by Elvira Sebastian MD pulmonology : IV levofloxacin : IV methylprednisolone : IVFs : blood & sputum CXs : supplemental oxygen : supportive care Secondary R ICA para-ophthalmic aneurysm : s/p coiling in 2014 : no acute issues COPD, not in exacerbation : albuterol nebs PRN : mometasone/formoterol : tiotropium : supplemental oxygen : incentive spirometry : smoking cessation, low motivation : nicotine replacement HTN : review meds once reconciled hypothyroidism : review meds once reconciled migraines : review meds once reconciled GERD : review meds once reconciled bipolar disorder : review meds once reconciled depression : review meds once reconciled anxiety : review meds once reconciled Admission Rational: observation for hypoxia & SOB DVTp: heparin SQ & SCDs Code Status: full
[2016-11-25] MEDS ORDERED: Nicotine Inhaler* 10 MG AMP INH PRN (02:31)
[2016-11-25] MEDS ORDERED: CMCS: Melatonin (NF) 3 MG TAB PO PRN (02:31)
[2016-11-25] MEDS ORDERED: Acetaminophen TAB* 325 MG PO PRN (02:31)
[2016-11-25] MEDS ORDERED: Ondansetron INJ* 2 MG/ML VIAL IV PRN (02:31)
[2016-11-25] MEDS: NS 0.9% 1000 ML* 1,000 ML IV SCH ×3 (04:18→12:49)
[2016-11-25] MEDS: Levothyroxine TAB* 137 MCG TAB PO SCH (05:54)
[2016-11-25] MEDS ORDERED: Albuterol 2.5 MG/3 ML NEB.SOL* (0.083%) INH SCH (07:00)
[2016-11-25] MEDS: Mometasone/Formoter 200/5 MDI INH SCH ×2 (08:23→19:43)
[2016-11-25] MEDS: Tiotropium CAP.INH* CAP.INH/18 MCG INH SCH (08:25)
[2016-11-25] MEDS ORDERED: Albuterol 2.5 MG/3 ML NEB.SOL* (0.083%) INH PRN (08:27)
[2016-11-25] MEDS: Atenolol TAB* 25 MG PO SCH (08:45)
[2016-11-25] MEDS: Omeprazole CAP* 20 MG PO SCH (08:45)
[2016-11-25] MEDS: lamoTRIgine TAB(*) 100 MG PO SCH (08:45)
[2016-11-25] MEDS: risperiDONE TAB* 3 MG PO SCH ×2 (08:45→20:36)
[2016-11-25] MEDS: Aspirin EC Low Dose* 81 MG TAB.EC PO SCH (08:46)
[2016-11-25] MEDS: Docusate CAP* 100 MG PO SCH ×2 (08:46→19:49)
[2016-11-25] MEDS: Baclofen TAB* 10 MG PO PRN ×2 (08:50→19:44)
[2016-11-25] MEDS ORDERED: Spiriva Inhaler DEVICE* 1 EACH DEVICE INH ONE (09:00)
[2016-11-25] MEDS: oxyCODONE/Acetamin 5/325 MG* TAB PO PRN ×2 (10:02→17:01)
--- NOTE | 2016-11-25 10:32 | PN ---
Subjective Date of Service: 11/25/16 Interval History: Patient seen and examined at bedside. Reports feeling better but doesn't want to go home with oxygen. Denies fever/chills, CP, SOB at rest, n/v. States she is highly motivated to quit and she is starting "right now." Family History: Unchanged from Admission Social History: Unchanged from Admission Past Medical History: Unchanged from Admission Objective Active Medications: Acetaminophen (Tylenol Tab*) 650 mg PO Q6H PRN PRN Reason: FEVER/PAIN Albuterol (Ventolin 2.5 Mg/3 Ml Neb.Corina*) 2.5 mg INH Q4H PRN PRN Reason: SOB/WHEEZING Aspirin (Aspirin Ec Low Dose*) 81 mg PO DAILY [facility] Last Admin: 11/25/16 08:46 Dose: 81 mg Atenolol (Tenormin Tab*) 25 mg PO DAILY [facility] Last Admin: 11/25/16 08:45 Dose: 25 mg Baclofen (Lioresal Tab*) 10 mg PO TID PRN PRN Reason: PAIN Last Admin: 11/25/16 08:50 Dose: 10 mg Docusate Sodium (Colace Cap*) 200 mg PO BID [facility] Last Admin: 11/25/16 08:46 Dose: 200 mg Heparin Sodium (Porcine) (Heparin Vial(*)) 5,000 units SUBCUT Q8HR [facility] Levofloxacin/Dextrose (Levaquin 750 Mg Ivpremix(*)) 750 mg in 150 mls @ 100 mls /hr IVPB Q24H [facility] Sodium Chloride (Ns 0.9% 1000 Ml*) 1,000 mls @ 125 mls/hr IV PER RATE [facility] Last Admin: 11/25/16 04:18 Dose: 125 mls/hr Lamotrigine (Lamictal Tab(*)) 200 mg PO DAILY [facility] Last Admin: 11/25/16 08:45 Dose: 200 mg Levothyroxine Sodium (Synthroid Tab*) 137 mcg PO DAILY@0600 [facility] Last Admin: 11/25/16 05:54 Dose: 137 mcg Melatonin (Melatonin (Nf)) 3 mg PO BEDTIME PRN; Protocol PRN Reason: Sleep Methylprednisolone Sodium Succinate (Solu-Medrol 40 Mg) 40 mg IV Q8H [facility] Mometasone Furoate/Formoterol Fumar (Dulera 200/5 Mdi*) 2 puff INH BID [facility] Last Admin: 11/25/16 08:23 Dose: 2 puff Nicotine (Nicotine Inhaler*) 10 mg INH Q2H PRN PRN Reason: CRAVING Omeprazole (Prilosec Cap*) 40 mg PO DAILY@0730 [facility] Last Admin: 11/25/16 08:45 Dose: 40 mg Ondansetron HCl (Zofran Inj*) 4 mg IV Q6H PRN PRN Reason: NAUSEA Oxycodone/Acetaminophen (Percocet 5/325 Tab*) 1 tab PO Q6H PRN PRN Reason: PAIN Last Admin: 11/25/16 10:02 Dose: 1 tab Quetiapine Fumarate (Seroquel Xr Tab*) 400 mg PO BEDTIME [facility] Risperidone (Risperdal*) 3 mg PO BID [facility] Last Admin: 11/25/16 08:45 Dose: 3 mg Tiotropium [place] (Spiriva Cap.Inh*) 1 cap INH DAILY [facility] Last Admin: 11/25/16 08:25 Dose: 1 cap Vital Signs 11/25/16 11/25/16 11/25/16 03:34 04:53 07:20 Temperature 98.1 F 98.1 F Pulse Rate 103 108 Respiratory 20 20 20 Rate Blood Pressure 127/61 149/90 (mmHg) O2 Sat by Pulse 95 95 Oximetry 11/25/16 11/25/16 11/25/16 07:28 08:18 10:02 Temperature Pulse Rate Respiratory 18 16 Rate Blood Pressure (mmHg) O2 Sat by Pulse 95 Oximetry Oxygen Devices in Use Now: Nasal Cannula - 4L Appearance: Female patient, lying in bed, NAD Eyes: PERRLA Ears/Nose/Mouth/Throat: Mucous Membranes Moist Neck: NL Appearance and Movements; NL JVP Respiratory: Symmetrical Chest Expansion and Respiratory Effort, - - good aeration through all lung hatch, prolonged expiratory phase with mild wheezing at end of expiration Cardiovascular: RRR Abdominal: NL Sounds; No Tenderness; No Distention Extremities: No Edema Neurological: Alert and Oriented x 3, NL Muscle Strength and Tone Lines/Tubes/Other Access: Clean, Dry and Intact Peripheral IV Nutrition: Taking PO's Result Diagrams: 11/24/16 21:55 11/24/16 21:55 Additional Lab and Data: Lab Results 06/09/17 06/09/17 06/09/17 Range/Units 21:55 21:55 21:55 WBC 7.1 (3.5-10.8) 10^3/ul RBC 5.10 (4.0-5.4) 10^6/ul Hgb 13.2 (12.0-16.0) g/dl Hct 41 (35-47) % MCV 80 (80-97) fL MCH 26 L (27-31) pg MCHC 32 (31-36) g/dl RDW 15 (10.5-15) % Plt Count 141 L (150-450) 10^3/ul MPV 10 (7.4-10.4) um3 Neut % (Auto) 82.6 (38-83) % Lymph % (Auto) 11.3 L (25-47) % [place] % (Auto) 5.0 (1-9) % Eos % (Auto) 0.2 (0-6) % Baso % (Auto) 0.9 (0-2) % Absolute Neuts (auto) 5.9 (1.5-7.7) 10^3/ul Absolute Lymphs (auto) 0.8 L (1.0-4.8) 10^3/ul Absolute Monos (auto) 0.4 (0-0.8) 10^3/ul Absolute Eos (auto) 0 (0-0.6) 10^3/ul Absolute Basos (auto) 0.1 (0-0.2) 10^3/ul Absolute Nucleated RBC 0 10^3/ul Nucleated RBC % 0 Sodium 133 (133-145) mmol/L Potassium 4.2 (3.5-5.0) mmol/L Chloride 100 L (101-111) mmol/L Carbon Dioxide 24 (22-32) mmol/L Anion Gap 9 (2-11) mmol/L BUN 11 (6-24) mg/dL Creatinine 0.90 (0.51-0.95) mg/dL Est GFR ( Amer) 87.9 (>60) Est GFR (Non-Af Amer) 68.3 (>60) BUN/Creatinine Ratio 12.2 (8-20) Glucose 169 H (70-100) mg/dL Lactic Acid 2.0 (0.5-2.0) mmol/L Calcium 10.1 (8.6-10.3) mg/dL Total Bilirubin 0.30 (0.2-1.0) mg/dL AST 34 (13-39) U/L ALT 46 (7-52) U/L Alkaline Phosphatase 129 H (34-104) U/L Troponin I 0.01 (<0.04) ng/mL C-Reactive Protein 61.01 H (< 5.00) mg/L B-Natriuretic Peptide ( - 100) pg/mL Total Protein 7.7 (6.4-8.9) g/dL Albumin 4.4 (3.2-5.2) g/dL Globulin 3.3 (2-4) g/dL Albumin/Globulin Ratio 1.3 (1-3) 11/24/16 Range/Units 21:55 WBC (3.5-10.8) 10^3/ul RBC (4.0-5.4) 10^6/ul Hgb (12.0-16.0) g/dl Hct (35-47) % MCV (80-97) fL MCH (27-31) pg MCHC (31-36) g/dl RDW (10.5-15) % Plt Count (150-450) 10^3/ul MPV (7.4-10.4) um3 Neut % (Auto) (38-83) % Lymph % (Auto) (25-47) % [place] % (Auto) (1-9) % Eos % (Auto) (0-6) % Baso % (Auto) (0-2) % Absolute Neuts (auto) (1.5-7.7) 10^3/ul Absolute Lymphs (auto) (1.0-4.8) 10^3/ul Absolute Monos (auto) (0-0.8) 10^3/ul Absolute Eos (auto) (0-0.6) 10^3/ul Absolute Basos (auto) (0-0.2) 10^3/ul Absolute Nucleated RBC 10^3/ul Nucleated RBC % Sodium (133-145) mmol/L Potassium (3.5-5.0) mmol/L Chloride (101-111) mmol/L Carbon Dioxide (22-32) mmol/L Anion Gap (2-11) mmol/L BUN (6-24) mg/dL Creatinine (0.51-0.95) mg/dL Est GFR ( Amer) (>60) Est GFR (Non-Af Amer) (>60) BUN/Creatinine Ratio (8-20) Glucose (70-100) mg/dL Lactic Acid (0.5-2.0) mmol/L Calcium (8.6-10.3) mg/dL Total Bilirubin (0.2-1.0) mg/dL AST (13-39) U/L ALT (7-52) U/L Alkaline Phosphatase (34-104) U/L Troponin I (<0.04) ng/mL C-Reactive Protein (< 5.00) mg/L B-Natriuretic Peptide 21 ( - 100) pg/mL Total Protein (6.4-8.9) g/dL Albumin (3.2-5.2) g/dL Globulin (2-4) g/dL Albumin/Globulin Ratio (1-3) Diagnostic Imaging: CXR: IMPRESSION: DIFFUSE RETICULONODULAR INFILTRATES DEMONSTRATING INTERVAL PROGRESSION. CONSIDER ATYPICAL PNEUMONIA, HISTOPLASMOSIS, FUNGAL INFECTION, PNEUMOCYSTIS, TUBERCULOSIS, COLLAGEN VASCULAR DISORDERS, RHEUMATOID LUNG, SCLERODERMA SARCOIDOSIS, DRUG REACTION ASSOCIATED CHANGES, INHALATION LUNG DISEASE AND SUGGEST PULMONARY CONSULTATION. Assess/Plan/Problems-Billing Assessment: Ms. Aden is a 41 yo female with a PMH of right ICA para-ophthalmic aneurysm s/p coiling, COPD, HTN, hypothyroidism, migraines, GERD, bipolar disorder, depression, and anxiety who presented to the ED on 11/24/16 with SOB and hypoxia. - Patient Problems (1) Acute respiratory failure with hypoxia Code(s): J96.01 - ACUTE RESPIRATORY FAILURE WITH HYPOXIA Comment: Patient with bilateral pulmonary infiltrates and new hypoxia Since 07/2015, patient has had reticulonodular infiltrates Recent bronchoscopy and biopsy in July 2016, which was negative Continue IV levofloxacin and methylprednisolone. Continue to attempt to wean O2 Blood and sputum cultures pending. Followed outpatient by Elvira Sebastian MD pulmonology (who is not customer relationship specialist this weekend ) (2) COPD (chronic obstructive pulmonary disease) Current Visit: No Status: Chronic Code(s): J44.9 - CHRONIC OBSTRUCTIVE PULMONARY DISEASE, UNSPECIFIED Comment: Not in acute exacerbation Continue Spiriva, Dulera, prn nebulizers, Solu-medrol (3) HTN (hypertension) Code(s): I10 - ESSENTIAL (PRIMARY) HYPERTENSION Comment: Normotensive Continue atenolol. (4) Hypothyroidism Code(s): E03.9 - HYPOTHYROIDISM, UNSPECIFIED Comment: Continue levothyroxine. (5) Tobacco use disorder Code(s): Z72.0 - TOBACCO USE Comment: I have advised her to quit smoking. Patient states she is "highly motivated." PRN nicotine replacement (6) Bipolar disorder Comment: Continue lamotrigine and risperidone. (7) Anxiety Code(s): F41.9 - ANXIETY DISORDER, UNSPECIFIED Comment: Continue alprazolam. (8) CAD (coronary artery disease) Code(s): I25.10 - ATHSCL HEART DISEASE OF [place] CORONARY ARTERY W/O ANG PCTRS Comment: Continue ASA and atenolol. (9) GERD (gastroesophageal reflux disease) Code(s): K21.9 - GASTRO-ESOPHAGEAL REFLUX DISEASE WITHOUT ESOPHAGITIS Comment : Continue omeprazole. (10) R ICA aneurysm Comment: S/p coiling in 2015 (11) DVT prophylaxis Comment: SQ heparin SCDs Status and Disposition: Inpatient admission. Anticipate discharge in ~1-2 days.
[2016-11-25] MEDS ORDERED: ALPRAZolam TAB* 0.5 MG PO PRN (12:38)
[2016-11-25] MEDS ORDERED: LAMOTRIGINE 200 MG PO SCH (17:45)
[2016-11-25] MEDS: ALPRAZolam TAB* 0.5 MG PO PRN (20:35)
[2016-11-25] MEDS ORDERED: QUEtiapine XR TAB* 200 MG PO SCH (21:00)
[2016-11-25] MEDS ORDERED: Levofloxacin 750 MG IVPREMIX(* 750 MG/150 ML BAG IVPB SCH (22:00)
[2016-11-26] MEDS: NS 0.9% 1000 ML* 1,000 ML IV SCH (02:11)
[2016-11-26] MEDS: oxyCODONE/Acetamin 5/325 MG* TAB PO PRN ×2 (02:59→08:59)
[2016-11-26] MEDS: Levothyroxine TAB* 137 MCG TAB PO SCH (05:22)
[2016-11-26] MEDS ORDERED: Heparin VIAL(*) 5000 UNITS/ML VIAL (FIVE THOUSAND) SUBCUT SCH (06:00)
[2016-11-26] MEDS: Baclofen TAB* 10 MG PO PRN (07:17)
[2016-11-26] MEDS: ALPRAZolam TAB* 0.5 MG PO PRN (07:17)
[2016-11-26] MEDS: Mometasone/Formoter 200/5 MDI INH SCH (08:03)
[2016-11-26] MEDS: Tiotropium CAP.INH* CAP.INH/18 MCG INH SCH (08:04)
--- NOTE | 2016-11-26 08:15 | DCNOTE ---
Subjective Date of Service: 11/26/16 Interval History: Patient seen and examined at bedside. Denies SOB, CP, fever/chills, n/v, abd pain. Reports improvement in pleuritic pain and cough. No longer using oxygen. Patient refusing nicotine replacement therapy, stating "I'm done with all of it. " She plans to quit cold turkey. Eager to go home. No acute complaints. Family History: Unchanged from Admission Social History: Unchanged from Admission Past Medical History: Unchanged from Admission Objective Active Medications: Acetaminophen (Tylenol Tab*) 650 mg PO Q6H PRN PRN Reason: FEVER/PAIN Albuterol (Ventolin 2.5 Mg/3 Ml Neb.Corina*) 2.5 mg INH Q4H PRN PRN Reason: SOB/WHEEZING Alprazolam (Xanax Tab*) 1 mg PO TID PRN PRN Reason: ANXIETY Last Admin: 11/26/16 07:17 Dose: 1 mg Aspirin (Aspirin Ec Low Dose*) 81 mg PO DAILY [facility] Last Admin: 11/25/16 08:46 Dose: 81 mg Atenolol (Tenormin Tab*) 25 mg PO DAILY [facility] Last Admin: 11/25/16 08:45 Dose: 25 mg Baclofen (Lioresal Tab*) 10 mg PO TID PRN PRN Reason: PAIN Last Admin: 11/26/16 07:17 Dose: 10 mg Docusate Sodium (Colace Cap*) 200 mg PO BID [facility] Last Admin: 11/25/16 19:49 Dose: Not Given Heparin Sodium (Porcine) (Heparin Vial(*)) 5,000 units SUBCUT Q8HR [facility] Last Admin: 11/26/16 05:22 Dose: 5,000 units Levofloxacin/Dextrose (Levaquin 750 Mg Ivpremix(*)) 750 mg in 150 mls @ 100 mls /hr IVPB Q24H [facility] Last Admin: 11/25/16 22:19 Dose: 100 mls/hr Sodium Chloride (Ns 0.9% 1000 Ml*) 1,000 mls @ 125 mls/hr IV PER RATE [facility] Last Admin: 11/26/16 02:11 Dose: 125 mls/hr Lamotrigine (Lamictal Tab(*)) 200 mg PO DAILY [facility] Last Admin: 11/25/16 08:45 Dose: 200 mg Levothyroxine Sodium (Synthroid Tab*) 137 mcg PO DAILY@0600 [facility] Last Admin: 11/26/16 05:22 Dose: 137 mcg Melatonin (Melatonin (Nf)) 3 mg PO BEDTIME PRN; Protocol PRN Reason: Sleep Mometasone Furoate/Formoterol Fumar (Dulera 200/5 Mdi*) 2 puff INH BID [facility] Last Admin: 11/26/16 08:03 Dose: 2 puff Nicotine (Nicotine Inhaler*) 10 mg INH Q2H PRN PRN Reason: CRAVING Omeprazole (Prilosec Cap*) 40 mg PO DAILY@0730 [facility] Last Admin: 11/25/16 08:45 Dose: 40 mg Ondansetron HCl (Zofran Inj*) 4 mg IV Q6H PRN PRN Reason: NAUSEA Oxycodone/Acetaminophen (Percocet 5/325 Tab*) 1 tab PO Q6H PRN PRN Reason: PAIN Last Admin: 11/26/16 02:59 Dose: 1 tab Prednisone (Deltasone Tab*) 60 mg PO ONCE ONE Stop: 11/26/16 09:01 Prednisone (Deltasone Tab*) 40 mg PO DAILY [facility] Quetiapine Fumarate (Seroquel Xr Tab*) 400 mg PO BEDTIME [facility] Last Admin: 11/25/16 20:35 Dose: 400 mg Risperidone (Risperdal*) 3 mg PO BID [facility] Last Admin: 11/25/16 20:36 Dose: 3 mg Tiotropium [place] (Spiriva Cap.Inh*) 1 cap INH DAILY [facility] Last Admin: 11/26/16 08:04 Dose: 1 cap Vital Signs 11/25/16 11/25/16 11/25/16 08:18 10:02 11:25 Temperature 97.8 F Pulse Rate 79 Respiratory 16 17 Rate Blood Pressure 105/68 (mmHg) O2 Sat by Pulse 95 95 Oximetry 11/25/16 11/25/16 11/25/16 11:55 12:49 14:30 Temperature Pulse Rate Respiratory 16 16 20 Rate Blood Pressure (mmHg) O2 Sat by Pulse Oximetry 11/25/16 11/25/16 11/25/16 15:42 17:01 19:01 Temperature 97.6 F Pulse Rate 78 Respiratory 20 16 18 Rate Blood Pressure 138/73 (mmHg) O2 Sat by Pulse 94 Oximetry 11/25/16 11/25/16 11/25/16 19:18 19:19 19:46 Temperature 97.4 F Pulse Rate 82 73 Respiratory 17 18 20 Rate Blood Pressure 141/86 (mmHg) O2 Sat by Pulse 93 95 Oximetry 11/25/16 11/25/16 11/25/16 20:35 22:35 23:50 Temperature 97.7 F Pulse Rate 72 Respiratory 18 20 24 Rate Blood Pressure 107/60 (mmHg) O2 Sat by Pulse 94 Oximetry 11/26/16 11/26/16 11/26/16 02:59 03:14 04:59 Temperature 97.3 F Pulse Rate 77 Respiratory 20 18 18 Rate Blood Pressure 142/81 (mmHg) O2 Sat by Pulse 94 Oximetry 11/26/16 11/26/16 07:17 08:07 Temperature Pulse Rate 74 Respiratory 20 16 Rate Blood Pressure (mmHg) O2 Sat by Pulse 98 Oximetry Oxygen Devices in Use Now: None Appearance: Female patient, lying in bed, NAD Eyes: PERRLA Ears/Nose/Mouth/Throat: Clear Oropharnyx, Mucous Membranes Moist Neck: NL Appearance and Movements; NL JVP Respiratory: Symmetrical Chest Expansion and Respiratory Effort, - - aeration heard in all lung hatch, prolonged expiratory phase, fine crackles heard in bases Cardiovascular: NL Sounds; No Murmurs; No JVD, RRR Abdominal: NL Sounds; No Tenderness; No Distention Extremities: No Edema Skin: No Rash or Ulcers Neurological: Alert and Oriented x 3 Lines/Tubes/Other Access: Clean, Dry and Intact Peripheral IV Nutrition: Taking PO's Result Diagrams: 11/24/16 21:55 11/24/16 21:55 Additional Lab and Data: Lab Results 11/24/16 11/24/16 11/24/16 Range/Units 21:55 21:55 21:55 WBC 7.1 (3.5-10.8) 10^3/ul RBC 5.10 (4.0-5.4) 10^6/ul Hgb 13.2 (12.0-16.0) g/dl Hct 41 (35-47) % MCV 80 (80-97) fL MCH 26 L (27-31) pg MCHC 32 (31-36) g/dl RDW 15 (10.5-15) % Plt Count 141 L (150-450) 10^3/ul MPV 10 (7.4-10.4) um3 Neut % (Auto) 82.6 (38-83) % Lymph % (Auto) 11.3 L (25-47) % [place] % (Auto) 5.0 (1-9) % Eos % (Auto) 0.2 (0-6) % Baso % (Auto) 0.9 (0-2) % Absolute Neuts (auto) 5.9 (1.5-7.7) 10^3/ul Absolute Lymphs (auto) 0.8 L (1.0-4.8) 10^3/ul Absolute Monos (auto) 0.4 (0-0.8) 10^3/ul Absolute Eos (auto) 0 (0-0.6) 10^3/ul Absolute Basos (auto) 0.1 (0-0.2) 10^3/ul Absolute Nucleated RBC 0 10^3/ul Nucleated RBC % 0 Sodium 133 (133-145) mmol/L Potassium 4.2 (3.5-5.0) mmol/L Chloride 100 L (101-111) mmol/L Carbon Dioxide 24 (22-32) mmol/L Anion Gap 9 (2-11) mmol/L BUN 11 (6-24) mg/dL Creatinine 0.90 (0.51-0.95) mg/dL Est GFR ( Amer) 87.9 (>60) Est GFR (Non-Af Amer) 68.3 (>60) BUN/Creatinine Ratio 12.2 (8-20) Glucose 169 H (70-100) mg/dL Lactic Acid 2.0 (0.5-2.0) mmol/L Calcium 10.1 (8.6-10.3) mg/dL Total Bilirubin 0.30 (0.2-1.0) mg/dL AST 34 (13-39) U/L ALT 46 (7-52) U/L Alkaline Phosphatase 129 H (34-104) U/L Troponin I 0.01 (<0.04) ng/mL C-Reactive Protein 61.01 H (< 5.00) mg/L B-Natriuretic Peptide ( - 100) pg/mL Total Protein 7.7 (6.4-8.9) g/dL Albumin 4.4 (3.2-5.2) g/dL Globulin 3.3 (2-4) g/dL Albumin/Globulin Ratio 1.3 (1-3) 11/24/16 Range/Units 21:55 WBC (3.5-10.8) 10^3/ul RBC (4.0-5.4) 10^6/ul Hgb (12.0-16.0) g/dl Hct (35-47) % MCV (80-97) fL MCH (27-31) pg MCHC (31-36) g/dl RDW (10.5-15) % Plt Count (150-450) 10^3/ul MPV (7.4-10.4) um3 Neut % (Auto) (38-83) % Lymph % (Auto) (25-47) % [place] % (Auto) (1-9) % Eos % (Auto) (0-6) % Baso % (Auto) (0-2) % Absolute Neuts (auto) (1.5-7.7) 10^3/ul Absolute Lymphs (auto) (1.0-4.8) 10^3/ul Absolute Monos (auto) (0-0.8) 10^3/ul Absolute Eos (auto) (0-0.6) 10^3/ul Absolute Basos (auto) (0-0.2) 10^3/ul Absolute Nucleated RBC 10^3/ul Nucleated RBC % Sodium (133-145) mmol/L Potassium (3.5-5.0) mmol/L Chloride (101-111) mmol/L Carbon Dioxide (22-32) mmol/L Anion Gap (2-11) mmol/L BUN (6-24) mg/dL Creatinine (0.51-0.95) mg/dL Est GFR ( Amer) (>60) Est GFR (Non-Af Amer) (>60) BUN/Creatinine Ratio (8-20) Glucose (70-100) mg/dL Lactic Acid (0.5-2.0) mmol/L Calcium (8.6-10.3) mg/dL Total Bilirubin (0.2-1.0) mg/dL AST (13-39) U/L ALT (7-52) U/L Alkaline Phosphatase (34-104) U/L Troponin I (<0.04) ng/mL C-Reactive Protein (< 5.00) mg/L B-Natriuretic Peptide 21 ( - 100) pg/mL Total Protein (6.4-8.9) g/dL Albumin (3.2-5.2) g/dL Globulin (2-4) g/dL Albumin/Globulin Ratio (1-3) Microbiology and Other Data: Microbiology 11/25/16 10:35 Legionella Urinary Antigen - Final Urine Negative Legionella Streptococcus pneumoniae Ag Screen - Final Negative S. pneumo Antigen Diagnostic Imaging: CXR: IMPRESSION: DIFFUSE RETICULONODULAR INFILTRATES DEMONSTRATING INTERVAL PROGRESSION. CONSIDER ATYPICAL PNEUMONIA, HISTOPLASMOSIS, FUNGAL INFECTION, PNEUMOCYSTIS, TUBERCULOSIS, COLLAGEN VASCULAR DISORDERS, RHEUMATOID LUNG, SCLERODERMA SARCOIDOSIS, DRUG REACTION ASSOCIATED CHANGES, INHALATION LUNG DISEASE AND SUGGEST PULMONARY CONSULTATION. Assess/Plan/Problems-Billing Assessment: Ms. Aden is a 41 yo female with a PMH of right ICA para-ophthalmic aneurysm s/p coiling, COPD, HTN, hypothyroidism, migraines, GERD, bipolar disorder, depression, and anxiety who presented to the ED on 11/24/16 with SOB and hypoxia. - Patient Problems (1) Community acquired pneumonia Code(s): J18.9 - PNEUMONIA, UNSPECIFIED ORGANISM Comment: Treated approximately 2 weeks ago with azithromycin Initially presented with hypoxia, now improved Patient reports improvement in pleuritic pain and cough Continue levofloxacin and prednisone taper. Recommend outpatient follow-up with pulmonology, patient will call for appointment. (2) Acute respiratory failure with hypoxia Code(s): J96.01 - ACUTE RESPIRATORY FAILURE WITH HYPOXIA Comment: Patient with bilateral pulmonary infiltrates and new hypoxia, hypoxia now resolved. Since 07/2015, patient has had reticulonodular infiltrates Recent bronchoscopy and biopsy in July 2016, which was negative Change IV levofloxacin and Solu-medrol to PO. Blood cultures with no growth at 36 hours. Followed outpatient by Elvira Sebastian MD pulmonology (who is not remote control assembler this weekend ) (3) COPD (chronic obstructive pulmonary disease) Current Visit: No Status: Chronic Code(s): J44.9 - CHRONIC OBSTRUCTIVE PULMONARY DISEASE, UNSPECIFIED Comment: Not in acute exacerbation Continue Spiriva, Dulera, prn nebulizers, prednisone (4) HTN (hypertension) Code(s): I10 - ESSENTIAL (PRIMARY) HYPERTENSION Comment: Normotensive Continue atenolol. (5) Hypothyroidism Code(s): E03.9 - HYPOTHYROIDISM, UNSPECIFIED Comment: Continue levothyroxine. (6) Tobacco use disorder Code(s): Z72.0 - TOBACCO USE Comment: I have advised her to quit smoking. Patient states she is "highly motivated." PRN nicotine replacement offered (7) Bipolar disorder Comment: Continue lamotrigine and risperidone. (8) Anxiety Code(s): F41.9 - ANXIETY DISORDER, UNSPECIFIED Comment: Continue alprazolam. (9) CAD (coronary artery disease) Code(s): I25.10 - ATHSCL HEART DISEASE OF [place] CORONARY ARTERY W/O ANG PCTRS Comment: Continue ASA and atenolol. (10) GERD (gastroesophageal reflux disease) Code(s): K21.9 - GASTRO-ESOPHAGEAL REFLUX DISEASE WITHOUT ESOPHAGITIS Comment : Continue omeprazole. (11) R ICA aneurysm Comment: S/p coiling in 2015 (12) DVT prophylaxis Comment: SQ heparin SCDs Status and Disposition: Inpatient admission. D/c to home.
[2016-11-26] MEDS: Omeprazole CAP* 20 MG PO SCH (08:26)
[2016-11-26] MEDS: risperiDONE TAB* 3 MG PO SCH (08:56)
[2016-11-26] MEDS: lamoTRIgine TAB(*) 100 MG PO SCH (08:57)
[2016-11-26] MEDS: Atenolol TAB* 25 MG PO SCH (08:59)
[2016-11-26] MEDS: Aspirin EC Low Dose* 81 MG TAB.EC PO SCH (08:59)
[2016-11-26] MEDS ORDERED: predniSONE TAB* 20 MG PO ONE (09:00)
[2016-11-26] MEDS ORDERED: methylPREDNISolone SOD 40 MG* 1 ML VIAL IV SCH (09:00)
[2016-11-26] MEDS ORDERED: guaiFENesin ER TAB 600 MG PO SCH (09:00)
[2016-11-26] MEDS: Docusate CAP* 100 MG PO SCH (09:00)
[2016-11-26 09:57] LABS: BUN/Creatinine Ratio 20.2 (8-20); Calcium 9.6 mg/dL (8.6-10.3); EGFR African American 95.2 (>60); Potassium 4.6 mmol/L (3.5-5.0)
[2016-11-26 10:33] LABS: Hematocrit 42 % (35-47); Hemoglobin 13.3 g/dl (12.0-16.0); Mean Corpuscular HGB Conc 32 g/dl (31-36); Mean Corpuscular Hemoglobin 26 pg (27-31); Mean Corpuscular Volume 80 fL (80-97); Mean Platelet Volume 10 um3 (7.4-10.4); Red Blood Count 5.23 10^6/ul (4.0-5.4); Red Cell Distribution Width 16 % (10.5-15); White Blood Count 4.8 10^3/ul (3.5-10.8)
[2016-11-26 10:52] VITALS: BP 153/86
[2016-11-26] MEDS ORDERED: Levofloxacin TAB* 750 MG PO SCH (12:00)
--- NOTE | 2016-11-26 12:01 | CONS ---
PULMONARY CONSULTATION REPORT: DATE OF CONSULT: 11/26/16 REASON FOR CONSULTATION: Evaluation of hypoxemia and lung infiltrates. CONSULTATION REQUESTED BY: Ninfa Morrison NP HISTORY OF PRESENT ILLNESS: The patient is a 41-year-old obese female with history of COPD, current smoker, known to me from outpatient evaluation. The patient noted to have reticulonodular opacities in the lungs, had bronchoscopy done in the past. Bronchoscopy did not reveal evidence of malignancy or sarcoidosis. Reticulonodular infiltrates were attributed to smoking with RB-ILD /DIP as possibility being considered. The patient was advised to quit smoking. Cultures for possible granulomatous infection was negative at that time. The patient continues to smoke, has been smoking half pack per day currently. The patient came in for evaluation of worsening shortness of breath for the past few days. The patient also reports cough, which is dry in nature and left- sided chest pain. The patient denies headache, sore throat, abdominal pain, or other issues. The patient reports improvement in breathing currently. She has ambulated today without significant hypoxemia. PAST MEDICAL HISTORY: 1. JAIME, status post aneurysm and coiling. 2. COPD. 3. Hypertension. 4. Hypothyroidism. 5. Migraines. 6. GERD. 7. Bipolar disorder. 8. Depression. 9. Anxiety. PAST SURGICAL HISTORY: 1. Appendectomy. 2. Cerebral aneurysm coiling. MEDICATIONS AT HOME: 1. Atenolol. 2. Omeprazole. 3. Advair. 4. Levothyroxine. 5. Seroquel. 6. Risperidone. 7. Albuterol. 8. Vitamin D. 9. Baclofen. 10. Aspirin. 11. Xanax. 12. Vitamin E. 13. Percocet. ALLERGIES: 1. AMOXICILLIN. 2. PHENYTOIN. 3. STRAWBERRY. 4. SWEET POTATO. FAMILY HISTORY: Hypertension. SOCIAL HISTORY: Denies alcohol or recreational drugs. REVIEW OF SYSTEMS: All systems reviewed and as per HPI. PHYSICAL EXAM: General: The patient in bed in no apparent distress. Vital Signs: Temperature 97.3, pulse 77 beats per minute, respiratory rate 18 per minute, O2 sat 98% on 2 L, and blood pressure 142/81. HEENT: Pupils equal, reactive to light. Mucous membranes moist. Lungs: Diminished air entry. Clear to auscultation. Cardiovascular: S1, S2 present, regular. Abdomen: Obese bowel sounds present, nontender, and nondistended. Neurological: No focal deficits. Labs: Reviewed Imaging studies: Were personally reviewed As described in HPI IMPRESSION AND RECOMMENDATIONS: 41-year-old female current smoker with reticulonodular opacities admitted with worsening shortness of breath and hypoxemia, likely exacerbation of underlying interstitial lung disease versus viral process. The patient is being treated with IV antibiotics for presumptive pneumonia. On Solu-Medrol. Septic workup negative to date. Tapered off oxygen. Would recommend discharging the patient on low-dose prednisone starting at 40 mg daily with taper over the next 10 days. Continue with nebulizer Spiriva. Thank you for allowing me to participate in the care of the patient. Will follow her up in a week. Discussed with Ninfa Morrison NP. [id number] #: [id number] ELIAZAR
--- NOTE | 2016-11-27 03:15 | DS ---
CC: Dr. Claudio Gauthier; Janette Sebastian MD * DISCHARGE SUMMARY: DATE OF ADMISSION: 11/25/16 DATE OF DISCHARGE: 11/26/16 PRIMARY CARE PHYSICIAN: Dr. Claudio Gauthier. PROVIDER: Berto Morrison NP ATTENDING PHYSICIAN: Nahun Ferguson MD *(as dictated by Berto Morrison NP). CONSULTING PHYSICIAN: Dr. Sebastian. PRIMARY DISCHARGE DIAGNOSES: 1. Community-acquired pneumonia with bilateral infiltrates. 2. Hypoxia. SECONDARY DISCHARGE DIAGNOSES: 1. Chronic obstructive pulmonary disease. 2. Hypertension. 3. Hypothyroidism. 4. Migraines. 5. Gastroesophageal reflux disease. 6. Bipolar disorder. 7. Depression. 8. Anxiety. 9. History of right ICA paraophthalmic aneurysm, status post coiling. MEDICATIONS AT DISCHARGE: 1. Xanax 1 mg t.i.d. p.r.n. 2. Lamotrigine 200 mg daily. 3. Albuterol nebulizer 1 treatment q.4 hours p.r.n. 4. Advair 1 or 2 puffs inhaled b.i.d. 5. Baclofen 10 mg t.i.d. p.r.n. 6. Atenolol 25 mg daily. 7. Aspirin 81 mg daily. 8. Vitamin D 50,000 units weekly. 9. Seroquel XR 400 mg at bedtime. 10. Omeprazole 40 mg daily. 11. Levothyroxine 137 mcg daily. 12. Risperidone 3 mg b.i.d. 13. Percocet 1 tab q.4 to 6 hours p.r.n. 14. Prednisone 40 mg daily x4 additional days. 15. Guaifenesin ER 1200 mg b.i.d. 16. Levofloxacin 750 mg daily. The patient should complete 2 more days for a total of a 5-day course. 17. Spiriva. DIAGNOSTIC TESTING DURING THIS ADMISSION: Chest x-ray, impression: Diffuse reticulonodular infiltrates demonstrating interval progression. Consider atypical pneumonia, histoplasmosis, fungal infection, Pneumocystis, tuberculosis , collagen vascular disorder, rheumatoid lung, scleroderma, sarcoidosis, drug reaction associated changes, inhalation lung disease, and suggest Pulmonary consultation. HOSPITAL COURSE OF STAY: For full details, please refer to the H and P provided by Dr. Hernandez on 11/25/16. In summary, Ms. Aden is a 41-year -old female who presented to the ER for evaluation of shortness of breath. The patient is a chronic smoker and states that she had cut her smoking back from 2 packs per day to half pack per day. The patient was seen approximately 2 weeks ago for similar symptoms and was treated with azithromycin and prednisone, but her cough and shortness of breath have gradually worsened. The patient does report sharp left-sided chest pain with cough. She was admitted and treated with IV Solu-Medrol and IV levofloxacin due to concern for bilateral pulmonary infiltrates seen on her chest x-ray as well as new hypoxia, requiring supplemental O2. The patient responded well to these treatments and the following day reported improvement in her shortness of breath. The patient was able to be weaned off oxygen later in the day and was able to ambulate on room air and maintain her O2 sats above 90%. Prior to discharge, the patient was seen in consultation by Dr. Sebastian who was on service. She agrees with current plan of care and recommends the patient be discharged on Spiriva. The patient had been advised to follow up with Dr. Sebastian within the next week or so as well as her PCP. On the patient's consultation by Dr. Sebastian, I see that she was also recommended to start on prednisone with a 10-day taper . A prescription was sent. I will call the pharmacy and amend this prescription to allow for a longer taper and notify the patient. The patient has been advised to stop smoking. I did discuss this with the patient at length. She states that she is highly motivated to quit smoking and has refused nicotine replacement therapy such as patches or inhaler. She plans to do this cold turkey. The patient is advised to follow up with her PCP in the event that she does decide to utilize nicotine replacement therapy to assist her in quitting. CONCERNS AT DISCHARGE: Ms. Aden was discharged to home on 11/26/16. She is to follow up with her PCP and Dr. Sebastian. The patient will call for an appointment. The patient has new prescriptions for Spiriva and prednisone taper at the pharmacy, which the patient has been notified of. DIET: Heart healthy diet. ACTIVITY: As tolerated. CONDITION: Stable. DISPOSITION: Home. TIME SPENT: Time spent on this discharge was approximately 40 minutes. Again, this is only a brief summary of the patient's hospital course of stay. For full details, please refer to the full medical record. If you have any further questions or need further assistance, please feel free to contact me at . BERTO MORRISON NP [id number]/[facility] #: [id number] ELIAZAR
[2016-11-27] MEDS ORDERED: predniSONE TAB* 20 MG PO SCH (09:00)
== END 2016-11-26 11:30 | disposition home or self-care (01) | DRG 140 ==
LOC: ED 20:39 → MED 11-25 03:23
PROVIDERS: ADMIT Hospitalist; ATTEND Internal Medicine
DX: J44.0 Chronic obstructive pulmonary disease with (acute) lower respiratory infection (principal); J96.01 Acute respiratory failure with hypoxia; J18.9 Pneumonia, unspecified organism; I10 Essential (primary) hypertension; I25.10 Atherosclerotic heart disease of native coronary artery without angina pectoris; E78.00 Pure hypercholesterolemia, unspecified; G47.30 Sleep apnea, unspecified; K21.9 Gastro-esophageal reflux disease without esophagitis; G43.909 Migraine, unspecified, not intractable, without status migrainosus; F41.0 Panic disorder [episodic paroxysmal anxiety]; F31.9 Bipolar disorder, unspecified; F17.210 Nicotine dependence, cigarettes, uncomplicated; R40.2412 Glasgow coma scale score 13-15, at arrival to emergency department; E03.9 Hypothyroidism, unspecified; E66.9 Obesity, unspecified; R09.02 Hypoxemia; Z88.1 Allergy status to other antibiotic agents; Z88.8 Allergy status to other drugs, medicaments and biological substances; Z86.718 Personal history of other venous thrombosis and embolism; Z90.49 Acquired absence of other specified parts of digestive tract; Z98.51 Tubal ligation status; Z95.828 Presence of other vascular implants and grafts; Z82.49 Family history of ischemic heart disease and other diseases of the circulatory system; Z68.38 Body mass index [BMI] 38.0-38.9, adult; Z91.018 Allergy to other foods
CPT/HCPCS: 36415; 80048; 80053; 83605; 83880; 84484; 85025; 86140; 87040; 87899; 94640; 94760; A9270-GY; J1644; J2930; J7512

== ENCOUNTER 2017-01-03 22:31 | Emergency (ER) | payer SELFPAY ==
[2017-01-04 00:34] VITALS: BP 132/93
[2017-01-04] MEDS ORDERED: Ipratropium 0.5MG/2.5ML NEB* 0.5 MG/2.5 ML NEB.SOLN INH ONE (00:40)
[2017-01-04] MEDS ORDERED: Albuterol/Ipratropium NEB.SOL* Albuterol 2.5 MG/Ipratropium 0.5 MG 3 ML INH ONE (00:40)
[2017-01-04] MEDS ORDERED: methylPREDNISolone 125 MG* 2 ML VIAL IV ONE (00:40)
[2017-01-04 01:19] LABS: Hematocrit 40 % (35-47); Mean Corpuscular HGB Conc 33 g/dl (31-36); Mean Corpuscular Hemoglobin 27 pg (27-31); Mean Corpuscular Volume 83 fL (80-97); Mean Platelet Volume 10 um3 (7.4-10.4); Red Blood Count 4.77 10^6/ul (4.0-5.4); Red Cell Distribution Width 16 % (10.5-15); White Blood Count 5.9 10^3/ul (3.5-10.8)
[2017-01-04 01:36] LABS: Albumin 4.1 g/dL (3.2-5.2); BUN/Creatinine Ratio 9.9 (8-20); Calcium 9.6 mg/dL (8.6-10.3); EGFR African American 99.2 (>60); EGFR Non-African American 77.2 (>60); Potassium 3.8 mmol/L (3.5-5.0); Total Bilirubin 0.2 mg/dL (0.2-1.0); Total Protein 7.1 g/dL (6.4-8.9)
[2017-01-04] MEDS ORDERED: Levofloxacin TAB* 500 MG PO ONE (01:58)
[2017-01-04] MEDS ORDERED: Levofloxacin TAB* 500 MG ONE (02:04)
--- NOTE | 2017-01-04 04:24 | ED ---
Peter Mcadams Rebecca, scribed for Jamie Mendozauel on 01/04/17 at 0042 . Shortness of Breath - HPI Summary HPI Summary: Pt is a 41 y/o F who presents to ED c/o SOB. SOB began 4 days ago, has been constant since onset and is characterized as dyspnea at rest. Sx aggravated and alleviated by nothing. Additionally c/o cough, urine incontinence, pain "in the R lung" and vomiting secondary to cough. Denies abd pain, edema, fever. Dx PNA 3 weeks ago, treated with Azithromycin and Prednisone. SHx current smoker. PMHx asthma, COPD. - History of Current Complaint Chief Complaint: EDShortnessOfBreath Time Seen by Provider: 01/04/17 00:25 Hx Obtained From: Patient Onset/Duration: Lasting Days - 4 days, Still Present Timing: Constant Dyspnea At: Rest Aggrevating Factors: Nothing Alleviating Factors: Nothing Associated Signs & Symptoms: Cough (Nonproductive) - Allergy/Home Medications Allergies/Adverse Reactions: Allergies Allergy/AdvReac Type Severity Reaction Status Date / Time Amoxicillin [From Augmentin] Allergy Severe throat Verified 01/03/17 22:47 closes up Clavulanic Acid Allergy Severe throat Verified 01/03/17 22:47 [From Augmentin] closes up Phenytoin [From Dilantin] Allergy Severe Shortness Verified 01/03/17 22:47 of Breath Becker Allergy Severe Swelling Verified 01/03/17 22:47 Of Face,Lips,& Throat sweet potatoe pie Allergy Swelling Uncoded 01/03/17 22:47 Of Face,Lips,& Throat PMH/Surg Hx/FS Hx/Imm Hx Endocrine/Hematology History: Reports: Hx Anticoagulant Therapy - ASA daily, Hx Thyroid Disease Denies: Hx Diabetes Cardiovascular History: Reports: Hx Aneurysm, Hx Angina, Hx Coronary Artery Disease, Hx Deep Vein Thrombosis - states in right arm 2017, Hx Hypercholesterolemia, Hx Hypertension, Other Cardiovascular Problems/Disorders - DVT, MURMUR, H PYLORI Denies: Hx Angioplasty, Hx Atrial Fibrillation, Hx Congestive Heart Failure, Hx Myocardial Infarction, Hx Pacemaker/ICD Respiratory History: Reports: Hx Asthma - states "not so much.", Hx Chronic Obstructive Pulmonary Disease (COPD) - YES, Hx Seasonal Allergies, Hx Sleep Apnea - does not use machine, Other Respiratory Problems/Disorders GI History: Reports: Hx Gastroesophageal Reflux Disease Denies: Other GI Disorders History: Reports: Hx Kidney Stones - states she thinks she has kidney stones Denies: Hx Renal Disease Comment Only: Other Problems/Disorders - states she thinks she has kidney stones Musculoskeletal History: Reports: Hx Back Problems - slipped disks Sensory History: Reports: Hx Contacts or Glasses - wears glasses Denies: Hx Hearing Aid Opthamlomology History: Reports: Hx Contacts or Glasses - wears glasses Neurological History: Reports: Hx Headaches, Hx Migraine, Hx Transient Ischemic Attacks (TIA) - Unconfirmed by patient, Other Neuro Impairments/Disorders - Cerebral Anuerysm, Bi-Polar Denies: Hx Dementia, Hx Seizures Psychiatric History: Reports: Hx Anxiety, Hx Depression, Hx Panic Disorder - SEVERE ANXIETY, Hx Bipolar Disorder Denies: Hx Substance Abuse - Surgical History Surgery Procedure, Year, and Place: C [id number] REMOVED-TUBAL LIGATION-APPENDIX 08/15/14. BRAIN ANEURYSM-STENTS/COIL [facility] [place] 06/01/16 -1.5 ONLY. BRONCHOSCOPY WITH TRANSBRONCHIAL BIOPSY 07/26/16 Hx Anesthesia Reactions: Yes - takes a little bit longer for patient to wake up - Immunization History Date of Tetanus Vaccine: 2013 Date of Influenza Vaccine: 2013 Infectious Disease History: No Infectious Disease History: Denies: Hx Hepatitis, Hx Human Immunodeficiency Virus (HIV), Traveled Outside the [place] in Last 30 Days - Family History Known Family History: Positive: Cardiac Disease Family History: Positive fhx of CAD - Social History Alcohol Use: None Hx Substance Use: No Substance Use Type: Reports: None Hx Tobacco Use: Yes Smoking Status (MU): Light Every Day Tobacco Smoker Type: Cigarettes Amount Used/How Often: 8 cigarettes a day recently---but usually 2ppd for 30 years Length of Time of Smoking/Using Tobacco: 20+ years Have You Smoked in the Last Year: Yes Review of Systems Negative: Fever Positive: Other - "R lung" pain Positive: Shortness Of Breath, Cough Positive: Vomiting - secondary to cough. Negative: Abdominal Pain Positive: incontinence - urine Negative: Edema All Other Systems Reviewed And Are Negative: Yes Physical Exam Triage Information Reviewed: Yes Vital Signs On Initial Exam: Initial Vitals Temp Pulse Resp BP Pulse Ox 97.8 F 99 20 137/76 92 01/03/17 22:47 01/03/17 22:47 01/03/17 22:47 01/03/17 22:47 01/03/17 22:47 Vital Signs Reviewed: Yes Appearance: Positive: Well-Appearing, No Pain Distress Skin: Positive: Warm, Skin Color Reflects Adequate Perfusion, Dry Head/Face: Positive: Normal Head/Face Inspection Eyes: Positive: EOMI, XIAO ENT: Positive: Normal ENT inspection Neck: Positive: Supple, Nontender Respiratory/Lung Sounds: Positive: Breath Sounds Present, Wheezes - Occasional wheezing bilaterally Cardiovascular: Positive: RRR, Pulses are Symmetrical in both Upper and Lower Extremities Abdomen Description: Positive: Nontender, Soft Bowel Sounds: Positive: Present Musculoskeletal: Positive: Normal, Strength/ROM Intact Neurological: Positive: Normal, Sensory/Motor Intact, Alert, Oriented to Person Place, Time - Carl Coma Scale Coma Scale Total: 15 Diagnostics - Vital Signs Vital Signs Temp Pulse Resp BP Pulse Ox 01/04/17 00:25 98.1 F 90 23 132/93 17 01/03/17 22:47 97.8 F 99 20 137/76 92 - Laboratory Result Diagrams: 01/04/17 01:05 01/04/17 01:05 Lab Statement: Any lab studies that have been ordered have been reviewed, and results considered in the medical decision making process. - Radiology CXR Xray Interpretation: Positive (See Comments) - increased interstitial markings Radiology Interpretation Completed By: ED Physician - EKG 0035 Cardiac Rate: NL - 90 bpm EKG Rhythm: Sinus Rhythm EKG Interpretation: No acute changes Re-Evaluation - Re-Evaluation First Eval Re-Evaluation Time: 02:01 Change: Improved Comment: Discussed imaging and lab results with the pt. Explained D/C plan. Course/Dx - Course Assessment/Plan: Pt is a 41 y/o F who presents to ED c/o SOB charcaterized as dyspnea at rest for 4 days. Additionally c/o cough, urine incontinence, pain " in the R lung" and vomiting secondary to cough. Denies abd pain, edema, fever. Dx PNA 3 weeks ago, treated with Azithromycin and Prednisone. SHx current smoker. PMHx asthma, COPD. EKG reveals no acute findings .CXR revealsincreased interstitial markings. Pt will be D/C to home with Dx of bronchitis and an Rx for Levaquin and Prednisone. She understands and agrees. Patient medications reviewed this visit. - Diagnoses Provider Diagnoses: Bronchitis, atypical Discharge - Discharge Plan Condition: Stable Disposition: HOME Prescriptions: Levofloxacin TAB* [Levaquin TAB*] 500 mg PO DAILY #10 tab predniSONE TAB* [Deltasone TAB*] 40 mg PO DAILY #5 tab Patient Education Materials: Acute Bronchitis (ED) Referrals: Claudio Gauthier MD [Primary Care Provider] - 3 Days The documentation as recorded by the Peter carranza Rebecca accurately reflects the service I personally performed and the decisions made by Kelly rich Emmanuel.
--- NOTE | 2017-01-04 08:03 | RAD ---
INDICATION: Chest pain COMPARISON: November 24, 2016 TECHNIQUE: An AP portable view obtained at 0121 hours is submitted. FINDINGS: Bones/Soft Tissues: There are no acute bony findings. Cardiomediastinal: The cardiomediastinal silhouette is normal. Lungs: There are diffuse reticulonodular infiltrates as also described previously. There is minor improvement. There is no focal consolidation. Pleura: There are no pleural effusions. Other: None IMPRESSION: DIFFUSE, BILATERAL RETICULONODULAR INFILTRATES WITH MINOR IMPROVEMENT.
== END 2017-01-04 02:15 | disposition home or self-care (01) ==
LOC: ED 22:31
DX: J40 Bronchitis, not specified as acute or chronic (principal); R06.02 Shortness of breath; R05 Cough; R11.10 Vomiting, unspecified; F17.210 Nicotine dependence, cigarettes, uncomplicated
CPT/HCPCS: 36415; 71010; 80053; 83880; 84484; 85025; 85379; 85610; 85730; 87040; 93005; 94640; 94760; 96374; 99283; A9270-GY; J2930

== ENCOUNTER 2017-02-10 18:17 | Emergency (ER) | payer OTHER ==
[2017-02-10] MEDS ORDERED: Morphine INJ* 2 MG/ML 1 ML SYRINGE IV ONE (19:27)
[2017-02-10] MEDS ORDERED: diPHENhydraMINE IV* 50 MG/ML 1 ml VIAL (BENADRYL) IV ONE (19:27)
[2017-02-10] MEDS ORDERED: Ondansetron INJ* 2 MG/ML VIAL IV ONE (19:27)
[2017-02-10] MEDS ORDERED: NS 0.9% 1000 ML* 1,000 ML IV ONE (19:27)
--- NOTE | 2017-02-10 19:58 | RAD ---
HISTORY: Headache, history of aneurysm COMPARISONS: July 15, 2016 TECHNIQUE: Multiple contiguous axial CT scans were obtained of the head without intravenous contrast. FINDINGS: HEMORRHAGE/INFARCT: There is no hemorrhage or acute infarct. MASSES/SHIFT: There is no mass or shift. EXTRA-AXIAL SPACES: There are no extra-axial fluid collections. SULCI AND VENTRICLES: The sulci and ventricles are normal in size and position for the patient's stated age. CEREBRUM: There are no focal parenchymal abnormalities. BRAINSTEM: There are no focal parenchymal abnormalities. CEREBELLUM: There are no focal parenchymal abnormalities. VESSELS: A metallic stent is noted of the clinoid segment of the right internal carotid artery. PARANASAL SINUSES: The paranasal sinuses are clear. ORBITS: The orbits are unremarkable. BONES AND SOFT TISSUE: No bone or soft tissue abnormalities are noted. OTHER: None IMPRESSION: NO ACUTE INTRACRANIAL PATHOLOGY.
--- NOTE | 2017-02-10 20:10 | ED ---
Peter Mcadams Rebecca, scribed for Flavio Hicks MD on 02/10/17 at 1932 . Headache - HPI Summary HPI Summary: Pt is a 41 y/o F who presents to ED c/o right-sided ENCISO. Sx have been present for the last week and is currently moderate ranked 7/10. Sx worsened at 1545 when she began experienced sharp R eye pain. Currently, pain is "in the eye socket, moving down my jaw and into my ear." Sx aggravated and alleviated by nothing, unchanged by amitriptyline 10 mg and Tylenol (3 tabs at 1545). Additionally c/o nausea. Denies vomiting. PMHx cerebral aneurysm clipping at [facility] in May [address] Khan who she called today and advised that she be evaluated [place] [facility]. SHx current smoker. - History Of Current Complaint Chief Complaint: EDHeadache Stated Complaint: MIGRAINE, RECENT ANEURSYM CLIPPED Time Seen by Provider: 02/10/17 19:19 Hx Obtained From: Patient Hx Last Menstrual Period: 5 yrs ago Onset/Duration: Started weeks ago - 1 week, Still Present, Worse Since - 1545 Currently Pain Is: Current Pain Scale(0-10)= - 7/10 Location of Headache: Other: - right "eye socket" Radiates to: Jaw and R ear Aggravating Factor: Nothing Allevating Factors: Nothing Associated Signs And Symptoms: Nausea - Allergies/Home Medications Allergies/Adverse Reactions: Allergies Allergy/AdvReac Type Severity Reaction Status Date / Time Amoxicillin [From Augmentin] Allergy Severe throat Verified 02/10/17 18:19 closes up Clavulanic Acid Allergy Severe throat Verified 02/10/17 18:19 [From Augmentin] closes up Phenytoin [From Dilantin] Allergy Severe Shortness Verified 02/10/17 18:19 of Breath Warren Allergy Severe Swelling Verified 02/10/17 18:19 Of Face,Lips,& Throat sweet potatoe pie Allergy Swelling Uncoded 02/10/17 18:19 Of Face,Lips,& Throat PMH/Surg Hx/FS Hx/Imm Hx Endocrine/Hematology History: Reports: Hx Anticoagulant Therapy - ASA daily, Hx Thyroid Disease Denies: Hx Diabetes Cardiovascular History: Reports: Hx Aneurysm, Hx Angina, Hx Coronary Artery Disease, Hx Deep Vein Thrombosis - states in right arm 2017, Hx Hypercholesterolemia, Hx Hypertension, Other Cardiovascular Problems/Disorders - DVT, MURMUR, H PYLORI Denies: Hx Angioplasty, Hx Atrial Fibrillation, Hx Congestive Heart Failure, Hx Myocardial Infarction, Hx Pacemaker/ICD Respiratory History: Reports: Hx Asthma - states "not so much.", Hx Chronic Obstructive Pulmonary Disease (COPD) - YES, Hx Seasonal Allergies, Hx Sleep Apnea - does not use machine, Other Respiratory Problems/Disorders GI History: Reports: Hx Gastroesophageal Reflux Disease Denies: Other GI Disorders History: Reports: Hx Kidney Stones - states she thinks she has kidney stones Denies: Hx Renal Disease Comment Only: Other Problems/Disorders - states she thinks she has kidney stones Musculoskeletal History: Reports: Hx Back Problems - slipped disks Sensory History: Reports: Hx Contacts or Glasses - wears glasses Denies: Hx Hearing Aid Opthamlomology History: Reports: Hx Contacts or Glasses - wears glasses Neurological History: Reports: Hx Headaches, Hx Migraine, Hx Transient Ischemic Attacks (TIA) - Unconfirmed by patient, Other Neuro Impairments/Disorders - Cerebral Anuerysm, Bi-Polar Denies: Hx Dementia, Hx Seizures Psychiatric History: Reports: Hx Anxiety, Hx Depression, Hx Panic Disorder - SEVERE ANXIETY, Hx Bipolar Disorder Denies: Hx Substance Abuse - Surgical History Surgery Procedure, Year, and Place: C [id number] REMOVED-TUBAL LIGATION-APPENDIX 08/15/14. BRAIN ANEURYSM-STENTS/[place]IL [facility] [place] 06/01/16 -1.5 ONLY. BRONCHOSCOPY WITH TRANSBRONCHIAL BIOPSY 07/26/16 Hx Anesthesia Reactions: Yes - takes a little bit longer for patient to wake up - Immunization History Date of Tetanus Vaccine: 2013 Date of Influenza Vaccine: 2013 Infectious Disease History: No Infectious Disease History: Denies: Hx Hepatitis, Hx Human Immunodeficiency Virus (HIV), Traveled Outside the [place] in Last 30 Days - Family History Known Family History: Positive: Cardiac Disease Family History: Positive fhx of CAD - Social History Alcohol Use: None Hx Substance Use: No Substance Use Type: Reports: None Hx Tobacco Use: Yes Smoking Status (MU): Heavy Every Day Tobacco Smoker Type: Cigarettes Amount Used/How Often: 8 cigarettes a day recently---but usually 2ppd for 30 years Length of Time of Smoking/Using Tobacco: 20+ years Have You Smoked in the Last Year: Yes Review of Systems Positive: Nausea. Negative: Vomiting Positive: Headache All Other Systems Reviewed And Are Negative: Yes Physical Exam Triage Information Reviewed: Yes Vital Signs On Initial Exam: Initial Vitals Temp Pulse Resp BP Pulse Ox 96.9 F 80 18 112/79 96 02/10/17 18:20 02/10/17 18:20 02/10/17 18:20 02/10/17 18:20 02/10/17 18:20 Vital Signs Reviewed: Yes Appearance: Positive: Well-Appearing, Pain Distress - mild pain, Obese Skin: Positive: Warm Head/Face: Positive: Normal Head/Face Inspection Eyes: Positive: EOMI, XIAO, Conjunctiva Clear ENT: Positive: Hearing grossly normal Neck: Positive: Supple Respiratory/Lung Sounds: Positive: Clear to Auscultation, Breath Sounds Present Cardiovascular: Positive: RRR Abdomen Description: Positive: Nontender, Soft Bowel Sounds: Positive: Present Musculoskeletal: Positive: Strength/ROM Intact Neurological: Positive: Sensory/Motor Intact, Alert, Oriented to Person Place, Time, Normal Gait Psychiatric: Positive: Affect/Mood Appropriate - Ragland Coma Scale Coma Scale Total: 15 Diagnostics - Vital Signs Vital Signs Temp Pulse Resp BP Pulse Ox 02/10/17 18:56 78 90 02/10/17 18:55 97.7 F 77 22 118/78 87 02/10/17 18:54 118/78 02/10/17 18:20 96.9 F 80 18 112/79 96 - Laboratory Lab Statement: Any lab studies that have been ordered have been reviewed, and results considered in the medical decision making process. - CT Brain CT CT Interpretation: No Acute Changes - NO ACUTE INTRACRANIAL PATHOLOGY. ED physician reviewed this radiology report and agrees. CT Interpretation Completed By: Radiologist Re-Evaluation - Re-Evaluation First Eval Re-Evaluation Time: 22:19 Change: Improved Headache Course/Dx - Course Assessment/Plan: Pt is a 41 y/o F who presents to ED c/o right-sided ENCISO. Sx have been present for the last week and is currently moderate ranked /10. Sx worsened at 1545 when she began experienced sharp R eye pain. Currently, pain is "in the eye socket, moving down my jaw and into my ear." Sx unchanged by amitriptyline 10 mg and Tylenol (3 tabs at 1545). Additionally c/o nausea. Denies vomiting. PMHx cerebral aneurysm clipping at [facility] in [place] [address] Khan who she called today and advised that she be evaluated by [facility]. SHx current smoker. CT Brain reveals no acute findings. Lactic acid of 1.6. In the ED course, pt received morphine, zofran, benadryl and fluids which improved sx. She will be D/C to home with Dx of ENCISO and a follow up with her PCP. She understands and agrees. - Diagnoses Provider Diagnoses: Headache Discharge - Discharge Plan Condition: Stable Disposition: HOME Patient Education Materials: General Headache (ED) Referrals: Claudio Gauthier MD [Primary Care Provider] - 3 Days Additional Instructions: Return to ED for any returning or worsening symptoms. The documentation as recorded by the Peter carranza Rebecca accurately reflects the service I personally performed and the decisions made by me, Flavio Hicks MD.
[2017-02-10 23:06] LABS: PCO2 Arterial 42 mmHg (35-45)
[2017-02-10 23:55] VITALS: BP 101/58
--- NOTE | 2017-02-11 07:39 | RAD ---
HISTORY: Shortness of breath COMPARISONS: January 04, 2017 VIEWS: 4: Frontal dual-energy and lateral views of the chest. FINDINGS: CARDIOMEDIASTINAL SILHOUETTE: The cardiomediastinal silhouette is normal. YO: The yo are normal. PLEURA: The costophrenic angles are sharp. No pleural abnormalities are noted. LUNG PARENCHYMA: Again noted is a diffuse reticular nodular pattern of opacification throughout both lung hatch. This is similar to the previous examination. ABDOMEN: The upper abdomen is clear. There is no subphrenic gas. BONES AND SOFT TISSUES: No bone or soft tissue abnormalities are noted. OTHER: None. IMPRESSION: STABLE CHRONIC INTERSTITIAL CHANGES. NO ACTIVE CARDIOPULMONARY DISEASE.
== END 2017-02-10 23:58 | disposition home or self-care (01) ==
LOC: ED 18:17
DX: R51 Headache (principal); F17.210 Nicotine dependence, cigarettes, uncomplicated; Z79.82 Long term (current) use of aspirin; K21.9 Gastro-esophageal reflux disease without esophagitis
CPT/HCPCS: 36415; 36600; 70450; 71020; 82803; 83605; 96360; 96374; 96375; 99282; J1200; J2270; J2405

== ENCOUNTER 2017-03-03 20:22 | Emergency (ER) | payer OTHER ==
[2017-03-03] MEDS ORDERED: diPHENhydraMINE IV* 50 MG/ML 1 ml VIAL (BENADRYL) SLOW PUSH ONE (21:31)
[2017-03-03] MEDS ORDERED: Metoclopramide IV* 5 MG/ML 2 ML VIAL IV SLOW PU ONE (21:31)
[2017-03-03] MEDS ORDERED: Ketorolac INJ* 30 MG/ML 1 ML VIAL IV PUSH ONE (22:36)
[2017-03-03 23:53] VITALS: BP 124/63
--- NOTE | 2017-03-04 11:33 | RAD ---
Indication: Headache. RIGHT eye pain. History of cerebral aneurysm. Comparison: February 10, 2017 CT. Technique: Noncontrast CT vertex of skull through foramen magnum. Report: The sulci, ventricles, and basal cisterns are normal for age. Merrill matter white matter differentiation is preserved without evidence for edema. No intra or extra axial hemorrhage, mass, or fluid collection detected. Unchanged finding of probable stent at the intracranial RIGHT internal carotid artery. Unremarkable visualized orbital contents. Unremarkable calvarium and skull base. Unremarkable scalp. Fluid level in the LEFT sphenoid sinus without change. Clear mastoid air spaces. IMPRESSION: 1. No acute CT abnormality of the brain. 2. Unchanged finding of probable stent at the intracranial RIGHT internal carotid artery. 3. Unchanged air-fluid level at the LEFT sphenoid sinus which may reflect sinusitis.
--- NOTE | 2017-03-16 15:24 | ED ---
Maxwell Mcadams Thomas, scribed for Mo Estrada MD on 03/03/17 at 2226 . Headache - HPI Summary HPI Summary: The pt is a 41 y/o F presenting to the ED c/o a migraine headache that began today at 16:30. She has a Hx of migraines and an aneurysm that was coiled in 2014. She says that the headache is similar to her previous migraine headaches and is in its usual spot. The pt rates the pain 9/10. The pain is aggravated by bright lights and is alleviated by nothing. 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 Pt additionally c/o dizziness, photophobia, and vomiting. Pt denies neck pain, and fever. PMHx: aneurysm (2014) . PSHx: aneurysm coiling (2014). SHx: current smoker, no alcohol use, no illicit drug use. FHx: CAD. She is accompanied by her boyfriend, Andrew. She has an appointment with her PCP in two days. She sees a neurologist in [place], where her surgery was performed. She has previously presented to EDs when the pain is so severe. 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 - boyfriend in room Hx Last Menstrual Period: 5 yrs ago Onset/Duration: Started hours ago - onset today at 16:30, Still Present Timing: Constant Location of Headache: Other: - "normal spot" Aggravating Factor: Bright Lights Allevating Factors: Nothing Associated Signs And Symptoms: Dizziness, Vomiting, Other (Noted In Comments) - POS: photophobia; NEG: neck pain, fever Related History: Similar Episode/DX As: - previous migraine headaches - Allergies/Home Medications Allergies/Adverse Reactions: Allergies Allergy/AdvReac Type Severity Reaction Status Date / Time Amoxicillin [From Augmentin] Allergy Severe throat Verified 03/03/17 20:35 closes up Clavulanic Acid Allergy Severe throat Verified 03/03/17 20:35 [From Augmentin] closes up Phenytoin [From Dilantin] Allergy Severe Shortness Verified 03/03/17 20:35 of Breath [place] Allergy Severe Swelling Verified 03/03/17 20:35 Of Face,Lips,& Throat sweet potatoe pie Allergy Swelling Uncoded 03/03/17 20:35 Of Face,Lips,& Throat PMH/Surg Hx/FS Hx/Imm Hx Previously Healthy: No Endocrine/Hematology History: Reports: Hx Anticoagulant Therapy - ASA daily, Hx Thyroid Disease Denies: Hx Diabetes Cardiovascular History: Reports: Hx Aneurysm, Hx Angina, Hx Coronary Artery Disease, Hx Deep Vein Thrombosis - states in right arm 2017, Hx Hypercholesterolemia, Hx Hypertension, Other Cardiovascular Problems/Disorders - DVT, MURMUR, H PYLORI Denies: Hx Angioplasty, Hx Atrial Fibrillation, Hx Congestive Heart Failure, Hx Myocardial Infarction, Hx Pacemaker/ICD Respiratory History: Reports: Hx Asthma - states "not so much.", Hx Chronic Obstructive Pulmonary Disease (COPD) - YES, Hx Seasonal Allergies, Hx Sleep Apnea - does not use machine, Other Respiratory Problems/Disorders GI History: Reports: Hx Gastroesophageal Reflux Disease Denies: Other GI Disorders History: Reports: Hx Kidney Stones - states she thinks she has kidney stones Denies: Hx Renal Disease Comment Only: Other Problems/Disorders - states she thinks she has kidney stones Musculoskeletal History: Reports: Hx Back Problems - slipped disks Sensory History: Reports: Hx Contacts or Glasses - wears glasses Denies: Hx Hearing Aid Opthamlomology History: Reports: Hx Contacts or Glasses - wears glasses Neurological History: Reports: Hx Headaches, Hx Migraine, Hx Transient Ischemic Attacks (TIA) - Unconfirmed by patient, Other Neuro Impairments/Disorders - Cerebral Anuerysm, Bi-Polar Denies: Hx Dementia, Hx Seizures Psychiatric History: Reports: Hx Anxiety, Hx Depression, Hx Panic Disorder - SEVERE ANXIETY, Hx Bipolar Disorder Denies: Hx Substance Abuse - Surgical History Surgery Procedure, Year, and Place: C [id number] REMOVED-TUBAL LIGATION-APPENDIX 08/15/14. BRAIN ANEURYSM-STENTS/COIL [facility] [place] 06/01/16 -1.5 ONLY. BRONCHOSCOPY WITH TRANSBRONCHIAL BIOPSY 07/26/16 Hx Anesthesia Reactions: Yes - takes a little bit longer for patient to wake up - Immunization History Date of Tetanus Vaccine: 2013 Date of Influenza Vaccine: 2013 Infectious Disease History: Denies: Hx Hepatitis, Hx Human Immunodeficiency Virus (HIV), Traveled Outside the [place] in Last 30 Days - Family History Known Family History: Positive: Cardiac Disease Family History: Positive fhx of CAD - Social History Alcohol Use: None Hx Substance Use: No Substance Use Type: Reports: None Hx Tobacco Use: Yes Smoking Status (MU): Heavy Every Day Tobacco Smoker Type: Cigarettes Amount Used/How Often: 8 cigarettes a day recently---but usually 2ppd for 30 years Length of Time of Smoking/Using Tobacco: 20+ years Have You Smoked in the Last Year: Yes Review of Systems Negative: Fever, Chills Positive: Photophobia. Negative: Erythema - eyes Negative: Sore Throat Negative: Chest Pain Negative: Shortness Of Breath, Cough Positive: Vomiting. Negative: Abdominal Pain, Diarrhea, Nausea Negative: dysuria, hematuria Negative: Myalgia, Edema - legs, Other - NEG: neck pain Negative: Rash Neurological: Other - POS: dizziness Positive: Headache - migraine ENCISO All Other Systems Reviewed And Are Negative: Yes Physical Exam - Summary Physical Exam Summary: Constitutional: Well-developed, Well-nourished, Alert. (-) Distressed Skin: Warm, Dry HENT: Normocephalic; Atraumatic Eyes: Conjunctiva normal. She is photophobic. Neck: Musculoskeletal ROM normal neck. (-) JVD, (-) Stridor, (-) Tracheal deviation Cardio: Rhythm regular, rate normal, Heart sounds normal; Intact distal pulses; The pedal pulses are 2+ and symmetric. Radial pulses are 2+ and symmetric. (-) Murmur Pulmonary/Chest wall: Effort normal. (-) Respiratory distress, (-) Wheezes, (-) Rales Abd: Soft. (-) Tenderness, ~(-) Distension, (-) Guarding, (-) Rebound Musculoskeletal: (-) Edema Lymph: (-) Cervical adenopathy Neuro: Alert, Oriented x3, Strength normal, Cranial nerves II-XII are grossly intact. (-) Dysmetria, (-) Nystagmus, (-) Ataxia by finger to nose testing, (-) Sensory deficit. Psych: Mood and affect Normal Triage Information Reviewed: Yes Vital Signs On Initial Exam: Initial Vitals Temp Pulse Resp BP Pulse Ox 98.0 F 84 16 132/81 96 03/03/17 20:30 03/03/17 20:30 03/03/17 20:30 03/03/17 20:30 03/03/17 20:30 Vital Signs Reviewed: Yes - Carl Coma Scale Coma Scale Total: 15 Diagnostics - Vital Signs Vital Signs Temp Pulse Resp BP Pulse Ox 03/03/17 21:40 98.0 F 84 16 132/81 96 03/03/17 20:30 98.0 F 84 16 132/81 96 - Laboratory Lab Statement: Any lab studies that have been ordered have been reviewed, and results considered in the medical decision making process. - CT CT Brain CT Interpretation: No Acute Changes - there is no evidence for acute infarction. There is no hemorrhage. Stent noted in the cavernous right ICA as before. No mass lesion is seen. There is no skull fracture. Mucosal thickening is noted in the left sphenoid sinus. Mastoid air cells are normally pneumatized. ED physician has reviewed this report and agrees. CT Interpretation Completed By: Radiologist Re-Evaluation - Re-Evaluation First Eval Re-Evaluation Time: 23:38 Change: Improved Comment: Her ENCISO is resolved and she is feeling better. Headache Course/Dx - Course Assessment/Plan: The pt is a 41 y/o F presenting to the ED c/o a migraine headache that began today at 16:30. She has a Hx of migraines and an aneurysm that was coiled in 2014. She says that the headache is similar to her previous migraine headaches and is in its usual spot. The pt rates the pain 9/10. The pain is aggravated by bright lights and is alleviated by nothing. 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 Pt additionally c/o dizziness, photophobia, and vomiting. Pt denies neck pain, and fever. PMHx: aneurysm (2014). PSHx: aneurysm coiling (2014). SHx: current smoker , no alcohol use, no illicit drug use. FHx: CAD. She is accompanied by her boyfriend, Andrew. She has an appointment with her PCP in two days. She sees a neurologist in [place], where her surgery was performed. She has previously presented to EDs when the pain is so severe. In the ED course she was given Toradol, Benadryl, and Reglan. At 22:37, her headache is resolved and she is feeling better. CT Brain shows there is no evidence for acute infarction. There is no hemorrhage. Stent noted in the cavernous right ICA as before. No mass lesion is seen. There is no skull fracture. Mucosal thickening is noted in the left sphenoid sinus. Mastoid air cells are normally pneumatized. ED physician has reviewed this report and agrees. She is diagnosed with chronic migraine. She will follow up with primary care. Patient is agreeable to this plan. - Diagnoses Provider Diagnoses: Chronic migraine Discharge - Discharge Plan Condition: Stable Disposition: HOME Patient Education Materials: Migraine Headache (ED) Referrals: Claudio Gauthier MD [Primary Care Provider] - 5 Days Additional Instructions: Follow up with your primary care provider within a week. Return to the emergency department for any changing or worsening symptoms. The documentation as recorded by the Maxwell carranza Thomas accurately reflects the service I personally performed and the decisions made by , Mo Estrada MD.
== END 2017-03-04 | disposition home or self-care (01) ==
LOC: ED 20:22
DX: G43.909 Migraine, unspecified, not intractable, without status migrainosus (principal); R42 Dizziness and giddiness; R11.10 Vomiting, unspecified; Z79.01 Long term (current) use of anticoagulants; F17.210 Nicotine dependence, cigarettes, uncomplicated
CPT/HCPCS: 70450; 96374; 96375; 99282; J1200; J1885; J2765

== ENCOUNTER 2017-12-19 10:39 | Emergency (ER) | payer OTHER ==
[2017-12-19] MEDS ORDERED: Famotidine IV* 10 MG/ML 2 ML (20 mg) IV SLOW PU ONE (10:56)
[2017-12-19] MEDS ORDERED: diPHENhydraMINE IV* 50 MG/ML 1 ml VIAL (BENADRYL) IV ONE (10:57)
[2017-12-19] MEDS ORDERED: methylPREDNISolone 125 MG* 2 ML VIAL IV ONE (10:57)
[2017-12-19] MEDS ORDERED: NS 0.9% 1000 ML* 1,000 ML IV ONE (10:58)
[2017-12-19 11:27] LABS: ABS Basophils 0 10^3/ul (0-0.2); ABS Eosinophils 0 10^3/ul (0-0.6); ABS Monocytes 0.6 10^3/ul (0-0.8); ABS Neutrophils 4.9 10^3/ul (1.5-7.7); ABS Nucleated RBC 0 10^3/ul; Eosinophil % 0.2 % (0-6); Hematocrit 40 % (35-47); Hemoglobin 13.6 g/dl (12.0-16.0); Lymphocyte % 15.4 % (25-47); Mean Corpuscular HGB Conc 34 g/dl (31-36); Mean Corpuscular Hemoglobin 28 pg (27-31); Mean Corpuscular Volume 82 fL (80-97); Nucleated Red Blood Cells % 0; Platelet Count 148 10^3/ul (150-450); Red Cell Distribution Width 15 % (10.5-15); White Blood Count 6.6 10^3/ul (3.5-10.8)
[2017-12-19] MEDS ORDERED: LORazepam INJ* 2 MG/ML 1 ML VIAL IV PUSH ONE (11:34)
[2017-12-19 11:43] LABS: EGFR Non-African American 86.6 (>60)
--- OUTSIDE RECORDS SUMMARY | 2017-12-19 11:44 | XMS REPORT ---
:1975 External Reference #:[id number] Author Organization [facility] Address [address] [place] [address] Phone [phone] Care Team Providers Name Role Phone Claudio Gauthier MD Care Team Information Glass Checker Unavailable Payers Type Date Identification Numbers Payment Provider Subscriber Commercial Effective: Policy Number: [id number] Michael Hdz 2015 [facility] PayID: [id number] [place] [address] Problems Description No Information Family History Date Family Member(s) Problem(s) Comments General Cancer, Colon General Cancer, Breast General Diabetes General Heart Disease General Cerebral Aneurysms Mother Cancer, Colon Social History Type Date Description Comments Marital Status Andrew Casey Lives With Male Partner 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 Cigarette Use Heavy tobacco smoker (more than 10 cigarettes/day) ETOH Use Denies alcohol use Smoking Heavy tobacco smoker (more than 10 cigarettes/day) Recreational Drug Use Never Used Drugs Exercise Type/Frequency Does not exercise Allergies, Adverse Reactions, Alerts Date Description Reaction Status Severity Comments 07/28/2015 Augmentin active 10/18/2016 Clavulanic Acid throat closes up active Severe 07/28/2015 Strawberries active 09/20/2016 Dilantin active Medications Medication Date Status Form Strength Qnty SIG Indications Ordering Provider Omeprazole 08/05 Active Capsules 40mg 30cap Take One Claudio DR workman Capsule By Disha Mouth Every , Morning Prednisone 07/31 Active Tablets 20mg 20tab take 3 tabs J44.1 Denys s by mouth x 3 [place] days, then 2 III, tabs by [employer] mouth x 3 days, then 1 tab by mouth x 3 days then 1/2 tab by mouth x 4 days Doxycycline 07/31 Active Capsules 100mg 20cap 1 take by J44.1 Denys Monohydrate s mouth [place] capsule 2 III, times per [employer] day for 10 days for infection Baclofen 07/19 Active Tablets 20mg 120ta 1 tab by Claudio bs mouth four Disha times a day , as needed Symbicort 07/13 Active Aerosol 160-4.5mc 12gm inhale 2 g/Act puffs by [place] mouth 2 , MD times per day for chronic obstructive lung disease Cormax Scalp 07/06 Active Solution 0.05% 100ml 1 apply to Claudio affected [place] area every , MD day when showering Protonix 05/[address] 40mg 30tab take one s tablet by Disha mouth every , MD day Tobrex 03/26 Active Solution 0.3% 5ml Instill 1 H10.89 drop into [place] affected eye , every 4 hours for infection Nicotine 03/07 Active Patches 21mg/24HR 28uni 1 patch 24HR ts daily MD Disha Pulse Oxygen 03/07 Active For F17.210 Claudio assessing [facility] COPD status. MD Metoprolol 03/01 Active Tablets ER 50mg 30tab Take One Claudio Succinate ER 24HR s Tablet By [place] Mouth Every , MD Day Nicotrol 10/23 Active Inhaler 10mg 336un inhale 1 Z72.0 its cartridge Disha kay MD orally repeatedly like a cigarette 16 times per day as needed for smoking cessation Lansoprazole 09/21 Active Capsules 30mg 30cap 1 tab by K21.9 Claudio s mouth daily MD Disha Advair Diskus 09/20 Active Aerosol 250-50mcg 60uni inhale one Claudio /Dose ts puff by Disha mouth twice , MD a day Singulair 09/20 Active Tablets 10mg 90tab take 1 J44.9 Claudio s tablet by [place] mouth daily , in the evening for COPD Ventolin HFA 08/10 Active Aerosol 108(90Bas 36uni Inhale 1 To e) ts 2 Puffs By [place] mcg/Act Mouth Every , MD 6 Hours as Needed Nebulizer, Home 05/17 Active 1unit 1 use to J44.9 Claudio s inhale Disha medications , MD as directed Albuterol 05/17 Active Nebulizer (2.5mg/3M 75ml 1 treatment J44.9 Claudio Sulfate /2015 L) 0.083% (1 vial) [place] four times a , MD day as needed for wheeze Benzonatate 05/05 Active Capsules 100mg 45cap take 1 J01.90 Mally s capsules by Luiza, mouth three [employer] times a day as needed for coughing Magnesium Oxide 03/29 Active Tablets 400mg 30tab Take One Claudio s Tablet [place] Daily. , Vitamin D3 03/29 Active Capsules 2000Unit 30cap Take One Claudio s Capsule By [place] Mouth Every , MD Day Hydrocodone-Acet 03/02 Active Tablets 10-325mg 90tab three times Claudio aminophen s a day as Disha needed , Proair HFA 07/28 Active Aerosol 108(90Bas 2unit 1-2 puffs Claudio e) s every 6 [place] mcg/Act hours as , needed Xanax 07/19 Active Tablets 1mg 1 tab by Claudio mouth three [place] times a day , Risperidone 04/15 Active Tablets 3mg 1 tab by Claudio /2014 mouth twice [place] a day , Aspirin 04/[address] 81mg 30tab take one Claudio /2014 s tablet by [place] mouth every , MD day Levothyroxine 04/15 Active Tablets 137mcg 30tab Take One Claudio Sodium s Tablet By [place] Mouth Every , MD Day Lamictal 00 Active Tablets 200mg 1 tab by Unknown /0000 mouth every night Lamotrigine 00 Active Tablets 200mg take one Unknown /0000 tablet by mouth once a day Doxycycline 07/31 Hx Capsules 100mg 20cap 1 take by J44.1 Denys cl s mouth [place] - capsule 2 III, 07/31 times per [employer] day for 10 days for infection Dulera 07/13 Hx Aerosol 200-5mcg/ 13uni inhale two Act ts puffs by [place] - mouth twice , 07/13 a day directed Prednisone 04/09 Hx Tablets 20mg 20tab take 3 tabs Nilesh Claudio s by mouth x 3 [place] - days, then 2 , 07/06 tabs by mouth x 3 days, then 1 tab by mouth x 3 days then 1/2 tab by mouth x 4 days Doxycycline 04/09 Hx Capsules 100mg 20cap 1 take by J44.1 Claudio cl s mouth [place] - capsule 2 , 07/06 times per day for 10 days for infection Protonix 02/[address] 40mg 30tab Take One s Tablet By [place] - Mouth Every , Nicotine Step 2 12/01 Hx Patches 14mg/24HR 30uni 1 daily 24HR ts every [place] - morning , 03/07 Baclofen 11/30 Hx Tablets 20mg S29.012A Disha - MD 11/30 Baclofen 11/30 Hx Tablets 10mg 120ta take one to S29.012A bs two tablets Disha - four times a , 07/19 day needed Pantoprazole 09/17 Hx Solution 40mg Claudio Rec Disha Mauro MD 09/17 Dexilant 09/17 Hx Capsules 30mg 30cap Take [address] s capsule by Heagustinks - mouth daily , 09/21 for 4 weeks for gastroesopha geal refluxdiseas e Clindamycin HCL 09/15 Hx Capsules 300mg 30cap take 1 H60.11 s capsule by [place] - mouth every , 10/23 8 hours for /2017 10 days Protonix 09/[address] 40mg 30tab 1 by mouth Claudio s every day Disha Mauro MD 09/20 Doxycycline 06/07 Hx Tablets 100mg 20tab 1 tab by Christian.9 Claudio Hyclate s mouth twice [place] - a day , 06/23 [place] 06/07 Hx Tablets 5-325mg 90tab 1 tab by Claudio s mouth three [place] - times a day , 06/07 as needed Tessalwayne Ochoa 06/07 Hx Capsules 100mg 60cap take 1 J44.9 Claudio s capsule by [place] - mouth 3 , 10/23 times per day as needed for cough Clindamycin HCL 05/17 Hx Capsules 300mg 21cap take 1 H66.91 Claudio s capsule by [place] - mouth every , 06/07 8 hours for 7 days Morphine Sulfate 05/17 Hx Tablets 15mg 60tab 1 tab by Claudio s mouth two [place] - times a day , 06/07 as needed Azithromycin 05/05 Hx Tablets 250mg 6tabs take 2 J01.90 tablets Luiza, - today then 1 [employer] 06/07 tablet daily for the next 4 days Zyrtec Allergy 04/14 Hx Tablets 10mg 30tab 1 by mouth Claudio s every day Disha Mauro MD 06/23 Magnesium Oxide 03/29 Hx Capsules 400mg 30cap 1 tab by Claudio -MG Supplement s mouth daily Guerreroetarmida Mauro MD 06/23 Prednisone 03/22 Hx Tablets 50mg 3tabs 1 tab by Claudio mouth daily [place] - for 3 days , 10/23 Hydrocodone 02/22 Hx Tablets 5-300mg 60tab 1 tab by Claudio Bitartrate/Aceta s mouth twice [place] minophen - a day , 03/02 Zofran 11/21 Hx Tablets 4mg 15tab 1 tab by Claudio s mouth three [place] - times a day , 03/15 nausea Gabapentin 10/19 Hx Capsules 300mg 45cap 1 tab by Claudio s mouth three [place] - times a day , 01/26 as needed. will cause sleepiness. Baclofen 09/23 Hx Tablets 10mg 120ta Take One S29.012A bs Tablet By [place] - Mouth Four , 11/30 Times A Day /2016 as Needed Cyclobenzaprine 09/02 Hx Tablets 10mg 90tab take 1 Marlyn.5 Claudio HCL s tablet by [place] - mouth 3 , 10/06 times day for muscle spasm with pain Hydrocodone-Acet 09/02 Hx Tablets 5-325mg 30tab 1 tab by M5Nikko Johnstonrit aminophen s mouth three [place] - times a day , 10/19 as needed Ranitidine 150 08/22 Hx Tablets 150mg 60tab 1 tab by Claudio Maximum Strength s mouth twice [place] - a day , 09/15 Azithromycin 07/28 Hx Tablets 250mg 6tabs take 2 J01.90 tablets by [place] - mouth one , 08/22 time take one daily for 4 days Advair HFA 07/28 Hx Aerosol 115-21mcg 24uni inhale one ts puff by [place] - mouth twice , 09/20 a day /2016 Flexeril 07/19 Hx Tablets 10mg 60tab 1 tab by Ivett Claudio s mouth three [place] - times a day , 07/19 Skelaxin 07/19 Hx Tablets 800mg 60tab 1 tab by M54.Izzy Claudio s mouth three [place] - times a day , 10/06 Hydrocodone-Acet 07/19 Hx Tablets 5-325mg 30tab 1 by mouth M54.5 Claudio aminophen s q4 - 6 hours [place] - as needed , 10/19 Tolnaftate 07/19 Hx Cream 1% 60uni 1 apply to ts affected [place] - area twice a , 03/15 day for weeks Fluoxetine HCL 04/15 Hx Capsules 40mg 30cap 1 by mouth Claudio /2014 s every day Disha Mauro MD 03/22 Magnesium 04/15 Hx Capsules 400mg 30cap 1 tab by Claudio /2014 s mouth daily Disha Mauro MD 03/29 Trazodone HCL 04/15 Hx Tablets 100mg 2 tab by Claudio /2014 mouth every Disha - night MD 10/06 Cetirizine HCL 04/15 Hx Tablets 10mg 30tab 1 by mouth Claudio /2014 s every day Disha Mauro MD 07/19 Amitriptyline 04/15 Hx Tablets 25mg 30tab as needed Claudio HCL s Disha Mauro MD 07/19 Topiramate 04/15 Hx Tablets 100mg 60tab once a day Claudio /2014 s Disha Mauro MD 01/26 Clopidogrel 04/15 Hx Tablets 75mg 30tab 1 by mouth Claudio Bisulfate s every day Disha Mauro MD 07/19 Quetiapine 04/15 Hx Tablets 400mg 30tab Claudio Fumarate s Disha Mauro MD 03/22 Omeprazole 04/15 Hx Capsules 40mg 30cap Take One Claudio DR s Capsule By [place] - Mouth Every MD 09/17 Atenolol 04/15 Hx Tablets 25mg 30tab Take One Claudio s Tablet By [place] - Mouth Every MD Nicotine 04/14 Hx Lozenges 2mg 120un 1 Dissolve Z72.0 Claudio Polacrilex its by mouth Disha - lozenge 20 , 10/06 times day for smoking cessation Albuterol 00/00 Hx Unknown Sulfate / - 08/22 Albuterol HFA 00/00 Hx Unknown /0000 - 08/22 Diazepam 00/00 Hx Tablets 5mg Unknown /0000 - 03/15 Oxycodone-Acetam 0000 Hx Tablets 5-325mg 60tab 1 by mouth Claudio inophen /0000 s every 4 [place] - hours MD sedrick 03/15 severe pain Prednisone 00 Hx Tablets 20mg Take Two Unknown /0000 Tablets By - Mouth Every Dose Due 11 27 16 Prednisone 0000 Hx Tablets 10mg Unknown /0000 - 03/07 Immunizations CPT Code Status Date Vaccine Lot # [id number] Given 03/07/2017 Influenza Virus Vaccine, Quadrivalent, 3 Yr > [id number] Quad, Preserv Free [id number] Given 03/15/2016 Influenza Virus Vaccine, Quadrivalent, 3 Yr > [id number] Quad, Preserv Free [id number] Given 04/14/2015 Influenza Virus Vaccine, Quadrivalent, 3 Yr > [id number] Quad, Preserv Free 34710 Given 06/18/2009 Tdap (Adacel) Vital Signs Date Vital Result Comment 12/01/2017 Weight 233.00 lb Weight in kg's 105.689 BP Systolic 120 mmHg BP Diastolic 70 mmHg Heart Rate 76 /min Body Temperature 97.4 F Respiratory Rate 18 /min O2 % BldC Oximetry 91 % 07/31/2017 Weight 239.00 lb w/ sneakers Weight in kg's 108.410 BP Systolic 132 mmHg BP Diastolic 88 mmHg Heart Rate 68 /min Body Temperature 98.2 F Respiratory Rate 20 /min O2 % BldC Oximetry 86 % 96% after neb 07/06/2017 Weight 234.00 lb Weight in kg's 106.142 BP Systolic 130 mmHg BP Diastolic 84 mmHg Heart Rate 82 /min Body Temperature 97.6 F Respiratory Rate 16 /min O2 % BldC Oximetry 95 % 06/07/2017 BP Systolic 140 mmHg BP Diastolic 82 mmHg Heart Rate 82 /min Body Temperature 97.3 F Respiratory Rate 16 /min 04/09/2017 Weight 235.00 lb Weight in kg's 106.596 BP Systolic 140 mmHg BP Diastolic 82 mmHg Heart Rate 72 /min Body Temperature 97.2 F O2 % BldC Oximetry 96 % 03/26/2017 Weight 233.00 lb Weight in kg's 105.689 BP Systolic 150 mmHg BP Diastolic 88 mmHg Heart Rate 76 /min Body Temperature 97.9 F Respiratory Rate 16 /min 03/07/2017 Weight 240.00 lb Weight in kg's 108.864 BP Systolic 138 mmHg BP Diastolic 84 mmHg Heart Rate 94 /min Body Temperature 97.8 F Respiratory Rate 22 /min O2 % BldC Oximetry 96 % 12/25/2016 Weight 240.00 lb Weight in kg's 108.864 BP Systolic 153 mmHg BP Diastolic 94 mmHg Heart Rate 118 /min Body Temperature 98.3 F O2 % BldC Oximetry 97 % 11/30/2016 Weight 234.00 lb Weight in kg's 106.142 BP Systolic 110 mmHg BP Diastolic 80 mmHg Heart Rate 76 /min Body Temperature 97.3 F Respiratory Rate 16 /min O2 % BldC Oximetry 93 % 10/23/2016 Weight 234.00 lb Weight in kg's 106.142 BP Systolic 118 mmHg BP Diastolic 80 mmHg Heart Rate 84 /min Body Temperature 97.0 F Respiratory Rate 20 /min Height 66 inches 5'6" BMI (Body Mass Index) 37.8 kg/m2 09/20/2016 Weight 234.00 lb Weight in kg's 106.142 BP Systolic 128 mmHg BP Diastolic 80 mmHg Heart Rate 88 /min Body Temperature 97.1 F Respiratory Rate 28 /min O2 % BldC Oximetry 96 % 09/15/2016 Weight 238.00 lb Weight in kg's 107.957 BP Systolic 120 mmHg BP Diastolic 77 mmHg Heart Rate 76 /min 08/24/2016 Weight 238.00 lb Weight in kg's 107.957 BP Systolic 118 mmHg BP Diastolic 82 mmHg Heart Rate 84 /min Body Temperature 97.5 F Respiratory Rate 18 /min O2 % BldC Oximetry 97 % 06/23/2016 Weight 236.00 lb Weight in kg's 107.050 BP Systolic 116 mmHg BP Diastolic 66 mmHg Heart Rate 92 /min Body Temperature 98.3 F Respiratory Rate 18 /min O2 % BldC Oximetry 98 % 06/07/2016 Weight 240.00 lb Weight in kg's 108.864 BP Systolic 100 mmHg BP Diastolic 82 mmHg Heart Rate 72 /min Body Temperature 98.2 F Respiratory Rate 12 /min 05/17/2016 Weight 237.00 lb Weight in kg's 107.503 BP Systolic 110 mmHg BP Diastolic 80 mmHg Heart Rate 91 /min Body Temperature 96.6 F Respiratory Rate 20 /min O2 % BldC Oximetry 95 % 05/05/2016 Weight 238.00 lb Weight in kg's 107.957 BP Systolic 132 mmHg BP Diastolic 80 mmHg Heart Rate 80 /min Body Temperature 98.3 F O2 % BldC Oximetry 97 % 03/22/2016 Weight 231.00 lb Weight in kg's 104.782 BP Systolic 120 mmHg BP Diastolic 84 mmHg Heart Rate 90 /min Body Temperature 99.6 F O2 % BldC Oximetry 96 % 03/15/2016 Weight 233.00 lb Weight in kg's 105.689 BP Systolic 126 mmHg BP Diastolic 88 mmHg Heart Rate 88 /min Body Temperature 98.0 F Respiratory Rate 18 /min 02/23/2016 Weight 230.00 lb Weight in kg's 104.328 BP Systolic 124 mmHg BP Diastolic 86 mmHg Heart Rate 88 /min Body Temperature 98.5 F Respiratory Rate 16 /min 01/27/2016 Weight 224.00 lb Weight in kg's 101.606 BP Systolic 125 mmHg BP Diastolic 80 mmHg Heart Rate 88 /min 11/29/2015 Weight 229.00 lb Weight in kg's 103.874 BP Systolic 100 mmHg BP Diastolic 68 mmHg Heart Rate 74 /min 11/22/2015 Weight 230.00 lb Weight in kg's 104.328 BP Systolic 102 mmHg BP Diastolic 60 mmHg Heart Rate 59 /min Body Temperature 97.5 F O2 % BldC Oximetry 97 % 11/04/2015 Weight 227.00 lb Weight in kg's 102.967 BP Systolic 90 mmHg BP Diastolic 60 mmHg Heart Rate 80 /min Body Temperature 98.2 F 10/07/2015 Weight 220.00 lb Weight in kg's 99.792 BP Systolic 130 mmHg BP Diastolic 80 mmHg Heart Rate 80 /min 09/24/2015 BP Systolic 138 mmHg BP Diastolic 76 mmHg Heart Rate 80 /min 09/17/2015 Weight 225.00 lb Weight in kg's 102.060 BP Systolic 110 mmHg BP Diastolic 78 mmHg Heart Rate 89 /min 09/03/2015 Weight 225.00 lb Weight in kg's 102.060 BP Systolic 122 mmHg BP Diastolic 81 mmHg Heart Rate 84 /min Body Temperature 98.0 F O2 % BldC Oximetry 98 % 08/23/2015 Weight 224.00 lb Weight in kg's 101.606 BP Systolic 108 mmHg BP Diastolic 70 mmHg Heart Rate 72 /min Body Temperature 97.8 F O2 % BldC Oximetry 98 % 07/28/2015 Weight 216.00 lb Weight in kg's 97.978 BP Systolic 118 mmHg BP Diastolic 80 mmHg Heart Rate 89 /min Body Temperature 98.0 F O2 % BldC Oximetry 98 % 07/19/2015 Weight 221.00 lb Weight in kg's 100.246 BP Systolic 140 mmHg BP Diastolic 80 mmHg Heart Rate 84 /min Height 66 inches 5'6" BMI (Body Mass Index) 35.7 kg/m2 05/17/2015 Weight 216.00 lb Weight in kg's 97.978 BP Systolic 130 mmHg BP Diastolic 80 mmHg Heart Rate 76 /min 04/14/2015 Weight 208.00 lb Weight in kg's 94.349 BP Systolic 120 mmHg BP Diastolic 80 mmHg Heart Rate 76 /min Height 66 inches 5'6" BMI (Body Mass Index) 33.6 kg/m2 Results Test Date Test Result H/L Range Note Arterial Blood Gas 02/10/2017 PH Arterial 7.39 7.35-7.45 Pco2 Arterial 42 mmHg 35-45 Po2 Arterial 68 mmHg Low 80-100 O2 Saturation Arterial 96.4 % 95-98 Base Excess Arterial 0.3 -2.0-2.0 1 Hco3 Arterial 24.9 mmol/L 19- Laboratory test finding 02/10/2017 Lactic Acid 1.6 mmol/L 0.5-2.0 2 CBC Auto Diff 01/04/2017 White Blood Count 5.9 10^3/uL 3.5-10.8 Red Blood Count 4.77 10^6/uL 4.0-5.4 Hemoglobin 13.0 g/dL 12.0-16.0 Hematocrit 40 % 35-47 Mean Corpuscular Volume 83 fL 80-97 Mean Corpuscular Hemoglobin 27 pg 27-31 Mean Corpuscular HGB Conc 33 g/dL 31-36 Red Cell Distribution Width 16 % High 10.5-15 Platelet Count 142 10^3/uL Low 150-450 Mean Platelet Volume 10 um3 7.4-10.4 Abs Neutrophils 4.1 10^3/uL 1.5-7.7 Abs Lymphocytes 1.0 10^3/uL 1.0-4.8 Abs Monocytes 0.7 10^3/uL 0-0.8 Abs Eosinophils 0 10^3/uL 0-0.6 Abs Basophils 0.1 10^3/uL 0-0.2 Abs Nucleated RBC 0.02 10^3/uL Granulocyte % 69.4 % 38-83 Lymphocyte % 17.6 % Low 25-47 Monocyte % 12.1 % High 1-9 Eosinophil % 0.1 % 0-6 Basophil % 0.8 % 0-2 Nucleated Red Blood Cells % 0.3 Inr/Protime 01/04/2017 Inr 0.92 0.89-1.11 Laboratory test finding 01/04/2017 Partial Thrombo Time 28.3 seconds 26.0 -36.3 PTT D Dimer Quantitative < 200 ng/mL Less Than 230 3 Comp Metabolic Panel 01/04/2017 Sodium 135 mmol/L 133-145 Potassium 3.8 mmol/L 3.5-5.0 Chloride 105 mmol/L 101-111 Co2 Carbon Dioxide 24 mmol/L 22-32 Anion Gap 6 mmol/L 2-11 Glucose 153 mg/dL High 70-100 Blood Urea Nitrogen 8 mg/dL 6-24 Creatinine 0.81 mg/dL 0.51-0.95 BUN/Creatinine Ratio 9.9 8-20 Calcium 9.6 mg/dL 8.6-10.3 Total Protein 7.1 g/dL 6.4-8.9 Albumin 4.1 g/dL 3.2-5.2 Globulin 3.0 g/dL 2-4 Albumin/Globulin Ratio 1.4 1-3 Total Bilirubin 0.20 mg/dL 0.2-1.0 Alkaline Phosphatase 97 U/L 34-104 Alt 34 U/L 7-52 Ast 23 U/L 13-39 Egfr Non- 77.2 >60 Egfr 99.2 >60 4 Laboratory test finding 01/04/2017 Troponin-I (TnI) 0.00 ng/mL <0.04 B-Type Natriuretic Peptide BNP 30 pg/mL 5 Blood Culture SEE RESULT BELOW 6 CBC Auto Diff 11/24/2016 White Blood Count 7.1 10^3/uL 3.5-10.8 Red Blood Count 5.10 10^6/uL 4.0-5.4 Hemoglobin 13.2 g/dL 12.0-16.0 Hematocrit 41 % 35-47 Mean Corpuscular Volume 80 fL 80-97 Mean Corpuscular Hemoglobin 26 pg Low 27-31 Mean Corpuscular HGB Conc 32 g/dL 31-36 Red Cell Distribution Width 15 % 10.5-15 Platelet Count 141 10^3/uL Low 150-450 Mean Platelet Volume 10 um3 7.4-10.4 Abs Neutrophils 5.9 10^3/uL 1.5-7.7 Abs Lymphocytes 0.8 10^3/uL Low 1.0-4.8 Abs Monocytes 0.4 10^3/uL 0-0.8 Abs Eosinophils 0 10^3/uL 0-0.6 Abs Basophils 0.1 10^3/uL 0-0.2 Abs Nucleated RBC 0 10^3/uL Granulocyte % 82.6 % 38-83 Lymphocyte % 11.3 % Low 25-47 Monocyte % 5.0 % 1-9 Eosinophil % 0.2 % 0-6 Basophil % 0.9 % 0-2 Nucleated Red Blood Cells % 0 Comp Metabolic Panel 11/24/2016 Sodium 133 mmol/L 133-145 Potassium 4.2 mmol/L 3.5-5.0 Chloride 100 mmol/L Low 101-111 Co2 Carbon Dioxide 24 mmol/L 22-32 Anion Gap 9 mmol/L 2-11 Glucose 169 mg/dL High 70-100 Blood Urea Nitrogen 11 mg/dL 6-24 Creatinine 0.90 mg/dL 0.51-0.95 BUN/Creatinine Ratio 12.2 8-20 Calcium 10.1 mg/dL 8.6-10.3 Total Protein 7.7 g/dL 6.4-8.9 Albumin 4.4 g/dL 3.2-5.2 Globulin 3.3 g/dL 2-4 Albumin/Globulin Ratio 1.3 1-3 Total Bilirubin 0.30 mg/dL 0.2-1.0 Alkaline Phosphatase 129 U/L High 34-104 Alt 46 U/L 7-52 Ast 34 U/L 13-39 Egfr Non- 68.3 >60 Egfr 87.9 >60 7 Laboratory test finding 11/24/2016 Troponin-I (TnI) 0.01 ng/mL <0.04 Lactic Acid 2.0 mmol/L 0.5-2.0 8 B-Type Natriuretic Peptide BNP 21 pg/mL 9 C Reactive Protein 61.01 mg/L High < 5.00 10 Blood Culture SEE RESULT BELOW 11 Lipid Profile (Trig/Chol/HDL) 10/23/2016 Triglycerides 125 mg/dL 12 Cholesterol 164 mg/dL 13 HDL Cholesterol 31.7 mg/dL 14 LDL Cholesterol 107 mg/dL 15 Laboratory test 10/23/2016 Hemoglobin A1c (Glyco 5.8 % Less than 6.0 16 finding HGB) CBC Auto Diff 10/23/2016 White Blood Count 5.7 10^3/uL 3.5-10.8 Red Blood Count 5.06 10^6/uL 4.0-5.4 Hemoglobin 13.1 g/dL 12.0-16.0 Hematocrit 41 % 35-47 Mean Corpuscular Volume 81 fL 80-97 Mean Corpuscular Hemoglobin 26 pg Low 27-31 Mean Corpuscular HGB Conc 32 g/dL 31-36 Red Cell Distribution Width 15 % 10.5-15 Platelet Count 164 10^3/uL 150-450 Mean Platelet Volume 10 um3 7.4-10.4 Abs Neutrophils 4.0 10^3/uL 1.5-7.7 Abs Lymphocytes 1.0 10^3/uL 1.0-4.8 Abs Monocytes 0.7 10^3/uL 0-0.8 Abs Eosinophils 0 10^3/uL 0-0.6 Abs Basophils 0 10^3/uL 0-0.2 Abs Nucleated RBC 0.01 10^3/uL Granulocyte % 69.6 % 38-83 Lymphocyte % 17.6 % Low 25-47 Monocyte % 11.5 % High 1-9 Eosinophil % 0.6 % 0-6 Basophil % 0.7 % 0-2 Nucleated Red Blood Cells % 0.2 Laboratory Studies 10/23/2016 Absolute Basophils (auto) 0 10^3/ul 0-0.2 Absolute Eosinophils (auto) 0 10^3/ul 0-0.6 Absolute Lymphocytes (auto) 1.0 10^3/ul 1.0-4.8 Absolute Monocytes (auto) 0.7 10^3/ul 0-0.8 Absolute Neutrophils (auto) 4.0 10^3/ul 1.5-7.7 Basophils (%) (Auto) 0.7 % 0-2 Cholesterol Level 164 mg/dL Eosinophils (%) (Auto) 0.6 % 0-6 HDL Cholesterol 31.7 mg/dL Hematocrit 41 % 35-47 Hemoglobin 13.1 g/dL 12.0-16.0 Hemoglobin A1c 5.8 % 0-6.0 LDL Cholesterol 107 mg/dL Lymphocytes (%) (Auto) 17.6 % Low 25-47 Mean Corpuscular Hemoglobin 26 pg Low 27-31 Mean Corpuscular Hemoglobin Concent 32 g/dL 31-36 Mean Corpuscular Volume 81 fL 80-97 Mean Platelet Volume 10 um3 7.4-10.4 Monocytes (%) (Auto) 11.5 % High 1-9 Neutrophils (%) (Auto) 69.6 % 38-83 Nucleated RBC Absolute Count (auto) 0.01 10^3/ul Nucleated Red Blood Cells % 0.2 Platelet Count 164 10^3/ul 150-450 Red Blood Count 5.06 10^6/ul 4.0-5.4 Red Cell Distribution Width 15 % 10.5-15 Triglycerides Level 125 mg/dL White Blood Count 5.7 10^3/ul 3.5-10.8 Laboratory test finding 07/26/2016 Body Fluid Cult & SEE RESULT BELOW 17, 18 Gram Stain Af[employer] Profile SEE RESULT BELOW 17, 19 Laboratory test 07/26/2016 Fungal Cult - Other SEE RESULT BELOW 17, 20 finding Sources Laboratory test 07/26/2016 Fungal Cult - Other SEE RESULT BELOW 17, 21 finding Sources Laboratory test 07/26/2016 Mycobacterial Culture See Comment 17, 22 finding Laboratory test 07/15/2016 Inr 0.99 0.89-1.1 finding 1 Partial Thrombo Time PTT 30.2 seconds 26.0-36.3 Comp Metabolic Panel 07/15/2016 Sodium 137 mmol/L 133-145 Potassium 3.5 mmol/L 3.5-5.0 Chloride 105 mmol/L 101-111 Co2 Carbon Dioxide 24 mmol/L 22-32 Anion Gap 8 mmol/L 2-11 Glucose 129 mg/dL High 70-100 Blood Urea Nitrogen 10 mg/dL 6-24 Creatinine 0.80 mg/dL 0.51-0.95 BUN/Creatinine Ratio 12.5 8-20 Calcium 9.8 mg/dL 8.6-10.3 Total Protein 7.4 g/dL 6.4-8.9 Albumin 4.2 g/dL 3.2-5.2 Globulin 3.2 g/dL 2-4 Albumin/Globulin Ratio 1.3 1-3 Total Bilirubin 0.20 mg/dL 0.2-1.0 Alkaline Phosphatase 103 U/L 34-104 Alt 26 U/L 7-52 Ast 18 U/L 13-39 Egfr Non- 78.7 >60 Egfr 101.2 >60 23 CBC Auto Diff 07/15/2016 White Blood Count 5.3 10^3/uL 3.5-10.8 Red Blood Count 4.83 10^6/uL 4.0-5.4 Hemoglobin 12.9 g/dL 12.0-16.0 Hematocrit 40 % 35-47 Mean Corpuscular Volume 82 fL 80-97 Mean Corpuscular Hemoglobin 27 pg 27-31 Mean Corpuscular HGB Conc 33 g/dL 31-36 Red Cell Distribution Width 15 % 10.5-15 Platelet Count 182 10^3/uL 150-450 Mean Platelet Volume 11 um3 High 7.4-10.4 Abs Neutrophils 3.4 10^3/uL 1.5-7.7 Abs Lymphocytes 1.2 10^3/uL 1.0-4.8 Abs Monocytes 0.6 10^3/uL 0-0.8 Abs Eosinophils 0 10^3/uL 0-0.6 Abs Basophils 0 10^3/uL 0-0.2 Abs Nucleated RBC 0 10^3/uL Granulocyte % 65.0 % 38-83 Lymphocyte % 22.6 % Low 25-47 Monocyte % 11.6 % High 1-9 Eosinophil % 0.3 % 0-6 Basophil % 0.5 % 0-2 Nucleated Red Blood Cells % 0 Laboratory Studies 07/15/2016 Absolute Basophils (auto) 0 10^3/ul 0-0.2 Absolute Eosinophils (auto) 0 10^3/ul 0-0.6 Absolute Lymphocytes (auto) 1.2 10^3/ul 1.0-4.8 Absolute Monocytes (auto) 0.6 10^3/ul 0-0.8 Absolute Neutrophils (auto) 3.4 10^3/ul 1.5-7.7 Activated Partial Thromboplast Time 30.2 seconds 26.0-36.3 Alanine Aminotransferase (Alt/SGPT) 26 U/L 7-52 Albumin 4.2 g/dL 3.2-5.2 Albumin/Globulin Ratio 1.3 1-3 Alkaline Phosphatase 103 U/L 34-104 Anion Gap 8 mmol/L 2-11 Aspartate Amino Transf (Ast/Sgot) 18 U/L 13-39 BUN/Creatinine Ratio 12.5 8-20 Basophils (%) (Auto) 0.5 % 0-2 Blood Urea Nitrogen 10 mg/dL 6-24 Calcium Level 9.8 mg/dL 8.6-10.3 Carbon Dioxide Level 24 mmol/L 22-32 Chloride Level 105 mmol/L 101-111 Creatinine 0.80 mg/dL 0.51-0.95 Eosinophils (%) (Auto) 0.3 % 0-6 Estimated GFR () 101.2 Estimated GFR (Non- 78.7 Globulin 3.2 g/dL 2-4 Glucose Level 129 mg/dL High 70-100 Hematocrit 40 % 35-47 Hemoglobin 12.9 g/dL 12.0-16.0 International Ratio (Anticoag Ther) 0.99 0.89-1.11 Lymphocytes (%) (Auto) 22.6 % Low 25-47 Mean Corpuscular Hemoglobin 27 pg 27-31 Mean Corpuscular Hemoglobin Concent 33 g/dL 31-36 Mean Corpuscular Volume 82 fL 80-97 Mean Platelet Volume 11 um3 High 7.4-10.4 Monocytes (%) (Auto) 11.6 % High 1-9 Neutrophils (%) (Auto) 65.0 % 38-83 Nucleated RBC Absolute Count (auto) 0 10^3/ul Nucleated Red Blood Cells % 0 Platelet Count 182 10^3/ul 150-450 Potassium Level 3.5 mmol/L 3.5-5.0 Red Blood Count 4.83 10^6/ul 4.0-5.4 Red Cell Distribution Width 15 % 10.5-15 Sodium Level 137 mmol/L 133-145 Total Bilirubin 0.20 mg/dL 0.2-1.0 Total Protein 7.4 g/dL 6.4-8.9 White Blood Count 5.3 10^3/ul 3.5-10.8 CBC Auto Diff 06/23/2016 White Blood Count 5.6 10^3/uL 3.5-10.8 Red Blood Count 4.75 10^6/uL 4.0-5.4 Hemoglobin 12.6 g/dL 12.0-16.0 Hematocrit 39 % 35-47 Mean Corpuscular Volume 83 fL 80-97 Mean Corpuscular Hemoglobin 27 pg 27-31 Mean Corpuscular HGB Conc 32 g/dL 31-36 Red Cell Distribution Width 15 % 10.5-15 Platelet Count 170 10^3/uL 150-450 Mean Platelet Volume 10 um3 7.4-10.4 Abs Neutrophils 3.6 10^3/uL 1.5-7.7 Abs Lymphocytes 1.3 10^3/uL 1.0-4.8 Abs Monocytes 0.7 10^3/uL 0-0.8 Abs Eosinophils 0 10^3/uL 0-0.6 Abs Basophils 0 10^3/uL 0-0.2 Abs Nucleated RBC 0.01 10^3/uL Granulocyte % 63.6 % 38-83 Lymphocyte % 23.1 % Low 25-47 Monocyte % 12.8 % High 1-9 Eosinophil % 0.2 % 0-6 Basophil % 0.3 % 0-2 Nucleated Red Blood Cells % 0.1 Comp Metabolic Panel 06/23/2016 Sodium 136 mmol/L 133-145 Potassium 4.1 mmol/L 3.5-5.0 Chloride 103 mmol/L 101-111 Co2 Carbon Dioxide 27 mmol/L 22-32 Anion Gap 6 mmol/L 2-11 Glucose 136 mg/dL High 70-100 Blood Urea Nitrogen 10 mg/dL 6-24 Creatinine 0.93 mg/dL 0.51-0.95 BUN/Creatinine Ratio 10.8 8-20 Calcium 9.6 mg/dL 8.6-10.3 Total Protein 7.0 g/dL 6.4-8.9 Albumin 4.4 g/dL 3.2-5.2 Globulin 2.6 g/dL 2-4 Albumin/Globulin Ratio 1.7 1-3 Total Bilirubin 0.30 mg/dL 0.2-1.0 Alkaline Phosphatase 106 U/L High 34-104 Alt 26 U/L 7-52 Ast 20 U/L 13-39 Egfr Non- 66.1 >60 Egfr 85.0 >60 24 Laboratory test 06/23/2016 Free T4 (Free 0.85 ng/dL 0.61-1.12 25 finding Thyroxine) Laboratory test 06/23/2016 TSH (Thyroid Stim 6.73 mcIU/mL High 0.34-5.60 26 finding Horm) CBC Auto Diff 03/15/2016 White Blood Count 6.3 10^3/uL 3.5-10.8 Red Blood Count 4.85 10^6/uL 4.0-5.4 Hemoglobin 13.5 g/dL 12.0-16.0 Hematocrit 41 % 35-47 Mean Corpuscular Volume 84 fL 80-97 Mean Corpuscular Hemoglobin 28 pg 27-31 Mean Corpuscular HGB Conc 33 g/dL 31-36 Red Cell Distribution Width 15 % 10.5-15 Platelet Count 149 10^3/uL Low 150-450 Mean Platelet Volume 11 um3 High 7.4-10.4 Abs Neutrophils 4.2 10^3/uL 1.5-7.7 Abs Lymphocytes 1.2 10^3/uL 1.0-4.8 Abs Monocytes 0.8 10^3/uL 0-0.8 Abs Eosinophils 0 10^3/uL 0-0.6 Abs Basophils 0 10^3/uL 0-0.2 Abs Nucleated RBC 0 10^3/uL Granulocyte % 67.7 % 38-83 Lymphocyte % 18.7 % Low 25-47 Monocyte % 12.9 % High 1-9 Eosinophil % 0.2 % 0-6 Basophil % 0.5 % 0-2 Nucleated Red Blood Cells % 0 Laboratory test finding 03/15/2016 Free T4 (Free Thyroxine) 0.72 ng/dL 0.61-1.12 27 T3 Total 1.04 ng/mL 0.87-1.78 28 TSH (Thyroid Stim Horm) 10.86 mcIU/mL High 0.34-5.60 29 Laboratory test finding 11/23/2015 Magnesium 2.3 mg/dL 1.9-2.7 Creatine Kinase 65 U/L 10-223 Troponin I 0.00 ng/mL <0.03 30 TSH (Thyroid Stimulating Horm) 4.07 ?IU/mL 0.34-5.60 Comp Metabolic Panel 11/23/2015 Sodium 139 mmol/L 133-145 Potassium 3.7 mmol/L 3.5-5.0 Chloride 105 mmol/L 101-111 Co2 Carbon Dioxide 28 mmol/L 22-32 Anion Gap 6 mmol/L 2-11 Glucose 103 mg/dL High 70-100 Blood Urea Nitrogen 11 mg/dL 6-24 Creatinine 0.86 mg/dL 0.51-0.95 BUN/Creatinine Ratio 12.8 8-20 Calcium 9.8 mg/dL 8.6-10.3 Total Protein 7.3 g/dL 6.4-8.9 Albumin 4.3 g/dL 3.2-5.2 Globulin 3.0 g/dL 2-4 Albumin/Globulin Ratio 1.4 1-3 Total Bilirubin 0.30 mg/dL 0.2-1.0 Alkaline Phosphatase 99 U/L 34-104 Alt 29 U/L 7-52 Ast 20 U/L 13-39 Egfr Non- 72.4 >60 Egfr 93.1 >60 31 CBC Auto Diff 11/23/2015 White Blood Count 3.5 10^3/uL 3.5-10.8 Red Blood Count 4.55 10^6/uL 4.0-5.4 Hemoglobin 12.4 g/dL 12.0-16.0 Hematocrit 38 % 35-47 Mean Corpuscular Volume 84 fL 80-97 Mean Corpuscular Hemoglobin 27 pg 27-31 Mean Corpuscular HGB Conc 33 g/dL 31-36 Red Cell Distribution Width 15 % 10.5-15 Platelet Count 138 10^3/uL Low 150-450 Mean Platelet Volume 10 um3 7.4-10.4 Abs Neutrophils 1.9 10^3/uL 1.5-7.7 Abs Lymphocytes 1.0 10^3/uL 1.0-4.8 Abs Monocytes 0.5 10^3/uL 0-0.8 Abs Eosinophils 0 10^3/uL 0-0.6 Abs Basophils 0 10^3/uL 0-0.2 Abs Nucleated RBC 0 10^3/uL Granulocyte % 54.1 % 38-83 Lymphocyte % 28.8 % 25-47 Monocyte % 15.4 % High 1-9 Eosinophil % 0.9 % 0-6 Basophil % 0.8 % 0-2 Nucleated Red Blood Cells % 0.1 Laboratory test finding 11/23/2015 Urine Culture SEE RESULT BELOW 32 Urinalysis Profile 11/23/2015 Urine Color Yellow Urine Appearance Turbid Urine Specific [place] 1.016 1.010-1.030 Urine pH 7.0 5-9 Urine Urobilinogen Negative Negative Urine Ketones Negative Negative Urine Protein Negative Negative Urine Leukocytes Trace Negative Urine Blood 1+ Negative Urine Nitrite Negative Negative Urine Bilirubin Negative Negative Urine Glucose Negative Negative Urine White Blood Cell Absent Absent Urine Red Blood Cell 2+(6-10/hpf) Absent Urine Bacteria Absent Absent Urine Squamous Epithelial Cell Present Absent Urine Yeast Present Absent Laboratory test finding 11/23/2015 Troponin I 0.00 ng/mL <0.03 33, 34 CBC Auto Diff 11/08/2015 White Blood Count 4.0 10^3/uL 3.5-10.8 Red Blood Count 4.71 10^6/uL 4.0-5.4 Hemoglobin 12.9 g/dL 12.0-16.0 Hematocrit 39 % 35-47 Mean Corpuscular Volume 83 fL 80-97 Mean Corpuscular Hemoglobin 27 pg 27-31 Mean Corpuscular HGB Conc 33 g/dL 31-36 Red Cell Distribution Width 15 % 10.5-15 Platelet Count 144 10^3/uL Low 150-450 Mean Platelet Volume 9 um3 7.4-10.4 Abs Neutrophils 2.6 10^3/uL 1.5-7.7 Abs Lymphocytes 1.0 10^3/uL 1.0-4.8 Abs Monocytes 0.4 10^3/uL 0-0.8 Abs Eosinophils 0 10^3/uL 0-0.6 Abs Basophils 0 10^3/uL 0-0.2 Abs Nucleated RBC 0 10^3/uL Granulocyte % 63.7 % 38-83 Lymphocyte % 24.6 % Low 25-47 Monocyte % 10.9 % High 1-9 Eosinophil % 0.3 % 0-6 Basophil % 0.5 % 0-2 Nucleated Red Blood Cells % 0.1 Urinalysis Profile 11/04/2015 Urine Color Yellow Urine Appearance Cloudy Urine Specific [place] 1.010 1.010-1.030 Urine pH 7.0 5-9 Urine Urobilinogen Negative Negative Urine Ketones Negative Negative Urine Protein Negative Negative Urine Leukocytes 2+ Negative Urine Blood Negative Negative Urine Nitrite Negative Negative Urine Bilirubin Negative Negative Urine Glucose Negative Negative Urine White Blood Cell Trace(0-5/hpf) Absent Urine Red Blood Cell Absent Absent Urine Bacteria Absent Absent Urine Squamous Epithelial Cell Present Absent Laboratory test finding 11/04/2015 Urine Culture SEE RESULT BELOW 35 Inr/Protime 11/04/2015 Inr 0.88 Low 0.89-1.11 Comp Metabolic Panel 11/04/2015 Sodium 137 mmol/L 133-145 Potassium 4.5 mmol/L 3.5-5.0 Chloride 105 mmol/L 101-111 Co2 Carbon Dioxide 24 mmol/L 22-32 Anion Gap 8 mmol/L 2-11 Glucose 97 mg/dL 70-100 Blood Urea Nitrogen 11 mg/dL 6-24 Creatinine 0.83 mg/dL 0.51-0.95 BUN/Creatinine Ratio 13.3 8-20 Calcium 9.6 mg/dL 8.6-10.3 Total Protein 6.9 g/dL 6.4-8.9 Albumin 4.4 g/dL 3.2-5.2 Globulin 2.5 g/dL 2-4 Albumin/Globulin Ratio 1.8 1-3 Total Bilirubin 0.20 mg/dL 0.2-1.0 Alkaline Phosphatase 104 U/L 34-104 Alt 25 U/L 7-52 Ast 19 U/L 13-39 Egfr Non- 75.4 >60 Egfr 97.0 >60 36 Laboratory test finding 11/04/2015 HCG < 0.60 mIU/mL 37 CBC Auto Diff 08/15/2015 White Blood Count 2.7 10^3/uL Low 3.5-10.8 Red Blood Count 4.81 10^6/uL 4.0-5.4 Hemoglobin 12.8 g/dL 12.0-16.0 Hematocrit 40 % 35-47 Mean Corpuscular Volume 84 fL 80-97 Mean Corpuscular Hemoglobin 27 pg 27-31 Mean Corpuscular HGB Conc 32 g/dL 31-36 Red Cell Distribution Width 15 % 10.5-15 Platelet Count 125 10^3/uL Low 150-450 Mean Platelet Volume 10 um3 7.4-10.4 Abs Neutrophils 1.3 10^3/uL Low 1.5-7.7 Abs Lymphocytes 0.9 10^3/uL Low 1.0-4.8 Abs Monocytes 0.5 10^3/uL 0-0.8 Abs Eosinophils 0 10^3/uL 0-0.6 Abs Basophils 0 10^3/uL 0-0.2 Abs Nucleated RBC 0 10^3/uL Granulocyte % 48.8 % 38-83 Lymphocyte % 32.1 % 25-47 Monocyte % 18.3 % High 1-9 Eosinophil % 0.4 % 0-6 Basophil % 0.4 % 0-2 Nucleated Red Blood Cells % 0.1 Laboratory test finding 08/15/2015 Lactic Acid 0.9 mmol/L 0.5-2.0 38 Inr/Protime 08/15/2015 Inr 1.07 0.89-1.11 Laboratory test finding 08/15/2015 Partial Thrombo Time 35.8 seconds 26.0 -36.3 PTT B-Type Natriuretic Peptide BNP 10 pg/mL 39 Comp Metabolic Panel 08/15/2015 Sodium 135 mmol/L 133-145 Potassium 3.7 mmol/L 3.5-5.0 Chloride 110 mmol/L 101-111 Co2 Carbon Dioxide 19 mmol/L Low 22-32 Anion Gap 6 mmol/L 2-11 Glucose 106 mg/dL High 70-100 Blood Urea Nitrogen 10 mg/dL 6-24 Creatinine 0.80 mg/dL 0.51-0.95 BUN/Creatinine Ratio 12.5 8-20 Calcium 9.0 mg/dL 8.6-10.3 Total Protein 7.4 g/dL 6.4-8.9 Albumin 4.3 g/dL 3.2-5.2 Globulin 3.1 g/dL 2-4 Albumin/Globulin Ratio 1.4 1-3 Total Bilirubin 0.30 mg/dL 0.2-1.0 Alkaline Phosphatase 91 U/L 34-104 Alt 29 U/L 7-52 Ast 25 U/L 13-39 Egfr Non- 79.0 >60 Egfr 101.7 >60 40 Laboratory test finding 08/15/2015 Magnesium 2.1 mg/dL 1.9-2.7 Lipase 25 U/L 11.0-82.0 Creatine Kinase 53 U/L 10-223 C Reactive Protein 17.16 mg/L High < 5.00 41 Troponin I 0.00 ng/mL <0.03 42 CKMB 08/15/2015 CKMB ng/mL 1.7 ng/mL 0.6-6.3 Laboratory test 08/15/2015 TSH (Thyroid Stimulating 4.07 ?IU/mL 0.34- 5.60 finding Horm) Lipid Profile 07/19/2015 Triglycerides 158 mg/dL 43 (Trig/Chol/HDL) Cholesterol 177 mg/dL 44 HDL Cholesterol 33.5 mg/dL 45 LDL Cholesterol 112 mg/dL 46 Laboratory test 07/19/2015 Hemoglobin A1c (Glyco 5.4 % Less than 6.0 47 finding HGB) CBC Auto Diff 07/19/2015 White Blood Count 4.0 10^3/uL 3.5-10.8 Red Blood Count 4.75 10^6/uL 4.0-5.4 Hemoglobin 13.0 g/dL 12.0-16.0 Hematocrit 40 % 35-47 Mean Corpuscular Volume 83 fL 80-97 Mean Corpuscular Hemoglobin 27 pg 27-31 Mean Corpuscular HGB Conc 33 g/dL 31-36 Red Cell Distribution Width 15 % 10.5-15 Platelet Count 180 10^3/uL 150-450 Mean Platelet Volume 10 um3 7.4-10.4 Abs Neutrophils 2.7 10^3/uL 1.5-7.7 Abs Lymphocytes 0.7 10^3/uL Low 1.0-4.8 Abs Monocytes 0.5 10^3/uL 0-0.8 Abs Eosinophils 0 10^3/uL 0-0.6 Abs Basophils 0 10^3/uL 0-0.2 Abs Nucleated RBC 0.01 10^3/uL Granulocyte % 67.5 % 38-83 Lymphocyte % 18.5 % Low 25-47 Monocyte % 13.5 % High 1-9 Eosinophil % 0.2 % 0-6 Basophil % 0.3 % 0-2 Nucleated Red Blood Cells % 0.2 Comp Metabolic Panel 07/19/2015 Sodium 136 mmol/L 133-145 Potassium 4.6 mmol/L 3.5-5.0 Chloride 107 mmol/L 101-111 Co2 Carbon Dioxide 22 mmol/L 22-32 Anion Gap 7 mmol/L 2-11 Glucose 93 mg/dL 70-100 Blood Urea Nitrogen 7 mg/dL 6-24 Creatinine 0.81 mg/dL 0.51-0.95 BUN/Creatinine Ratio 8.6 8-20 Calcium 9.3 mg/dL 8.6-10.3 Total Protein 7.2 g/dL 6.4-8.9 Albumin 4.5 g/dL 3.2-5.2 Globulin 2.7 g/dL 2-4 Albumin/Globulin Ratio 1.7 1-3 Total Bilirubin 0.30 mg/dL 0.2-1.0 Alkaline Phosphatase 110 U/L High 34-104 Alt 21 U/L 7-52 Ast 21 U/L 13-39 Egfr Non- 77.9 >60 Egfr 100.2 >60 48 1 Reference ranges based on room air. 2 [facility] Severe Sepsis and Septic Shock Management Bundle Measure requires all lactic acids initially measuring >2.0 mmol/L be repeated. 3 Please note: The following may produce a false positive D Dimer test: - Rheumatoid factor greater than 60 IU/ml - Plasma hemoglobin greater than 0.05 gm/dl - Bilirubin greater than 50 mg/dl - Lipids greater than 1000 mg/dl - FDP greater than 20 ug/ml 4 Because ethnic data is not always readily available, this report includes an eGFR for both -Americans and non- Americans. The National Kidney Disease Education Program (NKDEP) does not endorse the use of the MDRD equation for patients that are not between the ages of 18 and 70, are , have extremes of body size, muscle mass, or nutritional status, or are non- or non-. According to the National Kidney Foundation, irrespective of diagnosis, the stage of the disease is based on the level of kidney function: Stage Description GFR(mL/min/1.73 m(2)) 1 Kidney damage with normal or decreased GFR 90 2 Kidney damage with mild decrease in GFR 60-89 3 Moderate decrease in GFR 30-59 4 Severe decrease in GFR 15-29 5 Kidney failure <15 (or dialysis) 5 >100 to <200 pg/mL: likely compensated congestive heart failure (CHF) 200 to 400 pg/mL: likely moderate CHF >400 pg/mL: likely moderate to severe CHF 6 SEE RESULT BELOW Name: ALYSIA ADEN : [address]: Jorge Mendoza MD Acct: [id number] Unit: [id number] AGE: 41 Location: ED Re01/03/17 SEX: F Status: DEP ER SPEC: [id number] YOANA: 01/04/[address] [facility] [address]: Jorge Mendoza MD REQ: [id number] RECD: 01/04/17 STATUS: AALIYAH JEWELL DR: Claudio Gauthier MD _ SOURCE: BLOOD,VENO SPDESC: ORDERED: Blood Cult COMMENTS: Patient is On Antibiotics? NO Procedure Result Reported Site Aerobic Culture Bottle Final 01/09/17- 0151 ML No Growth Day 5 Anaerobic Culture Bottle Final 01/09/17- 0151 ML No Growth Day 5 * ML - MAIN LAB ([facility]) . END OF REPORT * ML=Testing performed at Main Lab DEPARTMENT OF PATHOLOGY, [address] [place] [address] John Andrews M.D. Director [facility] # [id number] 7 Because ethnic data is not always readily available, this report includes an eGFR for both -Americans and non- Americans. The National Kidney Disease Education Program (NKDEP) does not endorse the use of the MDRD equation for patients that are not between the ages of 18 and 70, are , have extremes of body size, muscle mass, or nutritional status, or are non- or non-. According to the National Kidney Foundation, irrespective of diagnosis, the stage of the disease is based on the level of kidney function: Stage Description GFR(mL/min/1.73 m(2)) 1 Kidney damage with normal or decreased GFR 90 2 Kidney damage with mild decrease in GFR 60-89 3 Moderate decrease in GFR 30-59 4 Severe decrease in GFR 15-29 5 Kidney failure <15 (or dialysis) 8 [facility] Severe Sepsis and Septic Shock Management Bundle Measure requires all lactic acids initially measuring >2.0 mmol/L be repeated. 9 >100 to <200 pg/mL: likely compensated congestive heart failure (CHF) 200 to 400 pg/mL: likely moderate CHF >400 pg/mL: likely moderate to severe CHF 10 Acute inflammation: >10.00 11 SEE RESULT BELOW Name: ALYSIA ADEN : [address]: Nahun Ferguson MD Acct: [id number] Unit: [id number] AGE: 41 Location: [place] [address] Re11/25/16 Dis: 11/26/16 SEX: F Status: DIS IN SPEC: [id number] YOANA: 11/24/[address] [facility] [address]: Flaquito Coto DO REQ: [id number] RECD: 11/24/16 STATUS: AALIYAH JEWELL DR: Claudio Gauthier MD _ SOURCE: BLOOD,VENO SPDESC: ORDERED: Blood Cult Procedure Result Reported Site Aerobic Culture Bottle Final 11/29/16- 8 ML No Growth Day 5 Anaerobic Culture Bottle Final 11/29/16- 2207 ML No Growth Day 5 * ML - MAIN LAB ([facility]) . END OF REPORT * ML=Testing performed at Main Lab DEPARTMENT OF PATHOLOGY, [address] [place] [address] John Andrews M.D. Director [facility] # [id number] 12 Desirable <150 Borderline high 150-199 High 200-499 Very High >500 13 Desirable <200 Borderline high 200-239 High >239 14 Low <40 Desirable: 40-60 High: >60 15 Desirable: <100 mg/dL Near Optimal: 100-129 mg/dL Borderline High: 130-159 mg/dL High: 160-189 mg/dL Very High: >189 mg/dL 16 Therapeutic target for the treatment of diabetes Mellitus patients is <7% HBA1C, and in selective patients <6.0%.Please refer to [place] [employer] Diabetic care guidelines for further information. 17 LEFT UPPER LOBE LAVAGE: LUNG NODULES, LEFT UPPER LOBE 18 SEE RESULT BELOW Name: ALYSIA ADEN : [address]: Janette Sebastian MD Acct: [id number] Unit: [id number] AGE: 40 Location: [place] Re07/26/16 SEX: F Status: DEP SDC SPEC: [id number] YOANA: 07/26/16-[address] [facility] [address]: Janette Sebastian MD REQ: [id number] RECD: 07/26/16 STATUS: AALIYAH JEWELL DR: Claudio Gauthier MD _ SOURCE: BODY FLUID SPDESC:BRONCH WAS ORDERED: BF Rekha/REN COMMENTS: LEFT UPPER LOBE LAVAGE: LUNG NODULES, LEFT UPPER LOBE Procedure Result Reported Site Body Fluid Gram Stain Final 07/26/16- 1352 ML 4+ Neutrophils 1+ Epithelial Cells 1+ Gram Positive Cocci Preparation By Cytospin Smear Body Fluid Culture Final 07/30/16- 0757 ML Organism 1 NORMAL ALEXANDER Quantity 1+ * ML - MAIN LAB ([facility]) . END OF REPORT * ML=Testing performed at Main Lab DEPARTMENT OF PATHOLOGY, [address] [place] [address] John Andrews M.D. Director [facility] # [id number] 19 SEE RESULT BELOW Name: ALYSIA ADEN : [address]: Janette Sebastian MD Acct: [id number] Unit: [id number] AGE: 40 Location: [place] Re07/26/16 SEX: F Status: REG SDC SPEC: [id number] YOANA: 07/26/16-[address] [facility] [address]: Janette Sebastian MD REQ: [id number] RECD: 07/26/16 STATUS: RES OTHR DR: Claudio Gauthier MD _ SOURCE: RESP SPDESC:BRONCH WAS ORDERED: Fungal - Other, AFB Cult Smear COMMENTS: LEFT UPPER LOBE LAVAGE: LUNG NODULES, LEFT UPPER LOBE Procedure Result Reported Site Fungal Cult - Other Sources PENDING Acid Fast Stain - Direct Final 07/26/16- 1400 ML AFB Smear Result No Acid Fast Bacillus Present (Negative) Preparation By Cytospin Smear Due to limited sensitivity of the smear, results should be used as an adjunct in evaluating the patient's status and cultural examination is highly recommended for diagnosis. * ML - MAIN LAB ([facility]) . END OF REPORT * ML=Testing performed at Main Lab DEPARTMENT OF PATHOLOGY, [address] [place] [address] John Andrews M.D. Director [facility] # [id number] 20 SEE RESULT BELOW Name: ALYSIA ADEN : [address]: Janette Sebastian MD Acct: [id number] Unit: [id number] AGE: 40 Location: [place] Re07/26/16 SEX: F Status: DEP SDC SPEC: [id number] YOANA: 07/26/16-[address] [facility] [address]: Janette Sebastian MD REQ: [id number] RECD: 07/26/16-1314 STATUS: RES OTHR DR: Claudio Gauthier MD _ SOURCE: RESP SPDESC:BRONCH WAS ORDERED: Fungal - Other, AFB Cult Smear COMMENTS: LEFT UPPER LOBE LAVAGE: LUNG NODULES, LEFT UPPER LOBE Procedure Result Reported Site Fungal Cult - Other Sources Preliminary 08/21/16- 1145 ML Fungal Culture No Growth of Mycotic Organisms 3 weeks Acid Fast Stain - Direct Final 07/26/16- 1400 ML AFB Smear Result No Acid Fast Bacillus Present (Negative) Preparation By Cytospin Smear Due to limited sensitivity of the smear, results should be used as an adjunct in evaluating the patient's status and cultural examination is highly recommended for diagnosis. * ML - MAIN LAB ([facility]) . END OF REPORT * ML=Testing performed at Main Lab DEPARTMENT OF PATHOLOGY, [address] [place] [address] John Andrews M.D. Director [facility] # [id number] 21 SEE RESULT BELOW Name: ALYSIA ADEN : [address]: Janette Sebastian MD Acct: [id number] Unit: [id number] AGE: 40 Location: [place] Re07/26/16 SEX: F Status: DEP SDC SPEC: [id number] YOANA: 07/26/16-[address]: Janette Sebastian MD REQ: [id number] RECD: 07/26/16 STATUS: AALIYAH JEWELL DR: Claudio Gauthier MD _ SOURCE: RESP SPDESC:BRONCH WAS ORDERED: Fungal - Other, AFB Cult Smear COMMENTS: LEFT UPPER LOBE LAVAGE: LUNG NODULES, LEFT UPPER LOBE Procedure Result Reported Site Fungal Cult - Other Sources Final 08/28/16- 1115 ML Fungal Culture No Growth of Mycotic Organisms 4 weeks Acid Fast Stain - Direct Final 07/26/16- 1400 ML AFB Smear Result No Acid Fast Bacillus Present (Negative) Preparation By Cytospin Smear Due to limited sensitivity of the smear, results should be used as an adjunct in evaluating the patient's status and cultural examination is highly recommended for diagnosis. * ML - MAIN LAB ([facility]) . END OF REPORT * ML=Testing performed at Main Lab DEPARTMENT OF PATHOLOGY, [address] [place] [address] John Andrews M.D. Director [facility] # [id number] 22 SOURCE: BRONCHOALVEOLAR LAVAGE, LEFT UPPER LOBE LAVAGE MYCOBACTERIAL CULTURE FINAL No growth after 60 days of incubation. Test Performed by: [address] [address] 23 Because ethnic data is not always readily available, this report includes an eGFR for both -Americans and non- Americans. The National Kidney Disease Education Program (NKDEP) does not endorse the use of the MDRD equation for patients that are not between the ages of 18 and 70, are , have extremes of body size, muscle mass, or nutritional status, or are non- or non-. According to the National Kidney Foundation, irrespective of diagnosis, the stage of the disease is based on the level of kidney function: Stage Description GFR(mL/min/1.73 m(2)) 1 Kidney damage with normal or decreased GFR 90 2 Kidney damage with mild decrease in GFR 60-89 3 Moderate decrease in GFR 30-59 4 Severe decrease in GFR 15-29 5 Kidney failure <15 (or dialysis) 24 Because ethnic data is not always readily available, this report includes an eGFR for both -Americans and non- Americans. The National Kidney Disease Education Program (NKDEP) does not endorse the use of the MDRD equation for patients that are not between the ages of 18 and 70, are , have extremes of body size, muscle mass, or nutritional status, or are non- or non-. According to the National Kidney Foundation, irrespective of diagnosis, the stage of the disease is based on the level of kidney function: Stage Description GFR(mL/min/1.73 m(2)) 1 Kidney damage with normal or decreased GFR 90 2 Kidney damage with mild decrease in GFR 60-89 3 Moderate decrease in GFR 30-59 4 Severe decrease in GFR 15-29 5 Kidney failure <15 (or dialysis) 25 [id number] 27 [id number] 28 [id number] 30 Reference Range and Interpretation: TnI (ng/mL) Interpretation Less Than 0.03 ng/mL Not supportive of diagnosis of [place] 0.03 - 0.50 ng/mL Indeterminate: suggest serial studies if clinically indicated. Greater than 0.5 ng/mL Consistent with diagnosis of [place] 31 Because ethnic data is not always readily available, this report includes an eGFR for both -Americans and non- Americans. The National Kidney Disease Education Program (NKDEP) does not endorse the use of the MDRD equation for patients that are not between the ages of 18 and 70, are , have extremes of body size, muscle mass, or nutritional status, or are non- or non-. According to the National Kidney Foundation, irrespective of diagnosis, the stage of the disease is based on the level of kidney function: Stage Description GFR(mL/min/1.73 m(2)) 1 Kidney damage with normal or decreased GFR 90 2 Kidney damage with mild decrease in GFR 60-89 3 Moderate decrease in GFR 30-59 4 Severe decrease in GFR 15-29 5 Kidney failure <15 (or dialysis) 32 SEE RESULT BELOW Name: ALYSIA ADEN : [address]: Manuela Lopez MD Acct: [id number] Unit: [id number] AGE: 40 Location: ED Re11/23/15 SEX: F Status: DEP ER SPEC: [id number] YOANA: 11/23/[address]: Manuela Lopez MD REQ: [id number] RECD: 11/23/15 STATUS: AALIYAH JEWELL DR: Claudio Gauthier MD _ SOURCE: URINE SPDESC: ORDERED: Urine Culture Procedure Result Reported Site Urine Culture Final 11/25/15- 806 ML No growth of clinically significant organisms * ML - MAIN LAB ([facility]) . END OF REPORT * ML=Testing performed at Main Lab DEPARTMENT OF PATHOLOGY, [address] [place] [address] John Andrews M.D. Director [facility] # [id number] 33 Comment: 23:30 please 34 Reference Range and Interpretation: TnI (ng/mL) Interpretation Less Than 0.03 ng/mL Not supportive of diagnosis of [place] 0.03 - 0.50 ng/mL Indeterminate: suggest serial studies if clinically indicated. Greater than 0.5 ng/mL Consistent with diagnosis of [place] 35 SEE RESULT BELOW Name: ALYSIA ADEN : [address]: Claudio Gauthier MD Acct: [id number] Unit: [id number] AGE: 40 Location: [facility] Re11/04/15 SEX: F Status: REG REF SPEC: [id number] YOANA: 11/04/15-[address]: Claudio Gauthier MD REQ: [id number] RECD: 11/04/15-656 STATUS: COMP _ SOURCE: URINE SPDESC: ORDERED: Urine Culture Procedure Result Reported Site Urine Culture Final 11/06/15- 09 ML Organism 1 KLEBSIELLA PNEUMONIAE Faulkner Count 10-25,000 (Moderate) CFU/ML Organism 2 NORMAL ALEXANDER Faulkner Count 10-25,000 (Moderate) CFU/ML 1. KLEBSIELLA PNEUMONIAE M.I.C. RX --------- ------ Ampicillin >=32 R Cefazolin <=4 S Cefepime <=1 S Ceftriaxone <=1 S Ciprofloxacin <=0.25 S Gentamicin <=1 S Levofloxacin <=0.12 S Meropenem <=0.25 S Nitrofurantoin 32 S Tetracycline <=1 S Pipercillin/Tazobactam <=4 S Trimethoprim/Sulfamethoxazole <=20 S Amoxicillin/Clavulanic Acid <=2 S Aztreonam <=1 S Contact the Microbiology Department for any additional antibiotic reporting. * ML - MAIN LAB ([facility]) . END OF REPORT * ML=Testing performed at Main Lab DEPARTMENT OF PATHOLOGY, [address] [place] [address] John Andrews M.D. Director [facility] # [id number] 36 Because ethnic data is not always readily available, this report includes an eGFR for both -Americans and non- Americans. The National Kidney Disease Education Program (NKDEP) does not endorse the use of the MDRD equation for patients that are not between the ages of 18 and 70, are , have extremes of body size, muscle mass, or nutritional status, or are non- or non-. According to the National Kidney Foundation, irrespective of diagnosis, the stage of the disease is based on the level of kidney function: Stage Description GFR(mL/min/1.73 m(2)) 1 Kidney damage with normal or decreased GFR 90 2 Kidney damage with mild decrease in GFR 60-89 3 Moderate decrease in GFR 30-59 4 Severe decrease in GFR 15-29 5 Kidney failure <15 (or dialysis) 37 <5.0 Negative 5.0 - 25.0 Indeterminate (Repeat testing recommended after 72 hours) >25.0 Positive Perimenopausal women can display HCG levels of up to 20 mIU/mL 38 [facility] Severe Sepsis and Septic Shock Management Bundle Measure requires all lactic acids initially measuring >2.0mmol/L be repeated. 39 >100 to <200 pg/mL: likely compensated congestive heart failure (CHF) 200 to 400 pg/mL: likely moderate CHF >400 pg/mL: likely moderate to severe CHF 40 Because ethnic data is not always readily available, this report includes an eGFR for both -Americans and non- Americans. The National Kidney Disease Education Program (NKDEP) does not endorse the use of the MDRD equation for patients that are not between the ages of 18 and 70, are , have extremes of body size, muscle mass, or nutritional status, or are non- or non-. According to the National Kidney Foundation, irrespective of diagnosis, the stage of the disease is based on the level of kidney function: Stage Description GFR(mL/min/1.73 m(2)) 1 Kidney damage with normal or decreased GFR 90 2 Kidney damage with mild decrease in GFR 60-89 3 Moderate decrease in GFR 30-59 4 Severe decrease in GFR 15-29 5 Kidney failure <15 (or dialysis) 41 Acute inflammation: >10.00 42 Reference Range and Interpretation: TnI (ng/mL) Interpretation Less Than 0.03 ng/mL Not supportive of diagnosis of AK 0.03 - 0.50 ng/mL Indeterminate: suggest serial studies if clinically indicated. Greater than 0.5 ng/mL Consistent with diagnosis of AK 43 Desirable <150 Borderline high 150-199 High 200-499 Very High >500 44 Desirable <200 Borderline high 200-239 High >239 45 Low <40 Desirable: 40-60 High: >60 46 Desirable: <100 mg/dL Near Optimal: 100-129 mg/dL Borderline High: 130-159 mg/dL High: 160-189 mg/dL Very High: >189 mg/dL 47 Therapeutic target for the treatment of diabetes Mellitus patients is <7% HBA1C, and in selective patients <6.0%.Please refer to [place] [employer] Diabetic care guidelines for further information. 48 Because ethnic data is not always readily available, this report includes an eGFR for both -Americans and non- Americans. The National Kidney Disease Education Program (NKDEP) does not endorse the use of the MDRD equation for patients that are not between the ages of 18 and 70, are , have extremes of body size, muscle mass, or nutritional status, or are non- or non-. According to the National Kidney Foundation, irrespective of diagnosis, the stage of the disease is based on the level of kidney function: Stage Description GFR(mL/min/1.73 m(2)) 1 Kidney damage with normal or decreased GFR 90 2 Kidney damage with mild decrease in GFR 60-89 3 Moderate decrease in GFR 30-59 4 Severe decrease in GFR 15-29 5 Kidney failure <15 (or dialysis) Procedures Date CPT Code Description Status 07/31/2017 98336 Nebulizer Treatment Completed 09/20/2016 00741 Spirometry Completed 06/23/2016 42823 EKG, at Least 12 Leads w/Interpretation and Report Completed 11/04/2015 24220 EKG, at Least 12 Leads w/Interpretation and Report Completed Encounters Type Date Location Provider CPT E/M Dx Office Visit 07/31/2017 10:30a Main Office Denys Dalal III, ENERGY INFRASTRUCTURE ENGINEER-C 45529 J44.1 Office Visit 07/06/2017 8:45a [place] [address] J44.1 L40.0 Office Visit 06/07/2017 11:00a [place] [address] L40.0 I88.1 Office Visit 04/09/2017 2:45p [place] [address] J44.1 Office Visit 03/26/2017 1:45p [place] [address] H10.89 Office Visit 03/07/2017 10:15a [place] [address] F17.210 R51 J44.9 M54.5 Z23 Office Visit 12/25/2016 8:45a [place] [address] F17.210 M54.5 R21 Office Visit 11/30/2016 11:00a [place] [address] J18.9 F17.210 S00.451A M54.5 Office Visit 10/23/2016 8:00a [place] [address] Z00.8 J44.9 E03.9 M54.5 E66.3 Z72.0 I60.9 Office Visit 09/20/2016 10:30a [place] [address] J44.9 Office Visit 09/15/2016 3:15p [place] [address] H60.11 Office Visit 08/24/2016 9:45a [place] [address] E03.9 J44.9 M54.5 Office Visit 06/23/2016 1:15p [place] [address] R91.8 J44.9 M54.5 R07.89 Office Visit 06/07/2016 3:30p [place] [address] J44.9 M54.5 H66.91 Office Visit 05/17/2016 4:15p [place] [address] H66.91 J44.9 M54.5 Office Visit 05/05/2016 4:30p Main Office Mally Jarrett ENERGY INFRASTRUCTURE ENGINEER-C 16023 J01.90 Office Visit 03/22/2016 8:45a [place] [address] T43.595A Office Visit 03/15/2016 8:45a [place] [address] F30.9 E03.9 E66.3 Z23 Office Visit 02/23/2016 9:30a [place] [address] M54.5 H91.91 Office Visit 01/27/2016 2:45p [place] [address] M54.5 Office Visit 11/29/2015 9:30a [place] [address] R00.2 M54.5 Office Visit 11/22/2015 1:00p [place] [address] M54.5 Office Visit 11/04/2015 10:15a [place] [address] I67.1 Office Visit 10/07/2015 9:45a [place] [address] S29.012A Office Visit 09/24/2015 9:45a [place] [address] S29.012A Office Visit 09/17/2015 9:15a [place] [address] M54.5 F25.0 Office Visit 09/03/2015 9:30a [place] [address] M54.5 Office Visit 08/23/2015 9:00a [place] [address] S29.001A J18.9 K21.9 Office Visit 07/28/2015 10:00a [place] [address] J01.90 Office Visit 07/19/2015 8:00a [place] [address] Z00.8 I10 Z72.0 M54.5 Office Visit 05/17/2015 9:00a [place] [address] F17.213 M54.5 I60.9 Office Visit 04/14/2015 9:15a [place] [address] Z72.0 M54.5 I10 I60.9 Z23 Plan of Care 12/01/2017 - Marah Le, ENERGY INFRASTRUCTURE ENGINEER-CS93.601A Unspecified sprain of right foot, initial encounterComments:encourage rest, elevated, ROM, ice, return to work Sunday, follow as needed
[2017-12-19 14:01] VITALS: BP 110/86
--- NOTE | 2017-12-19 14:17 | ED ---
Allergic Reaction/Systemic - HPI Summary HPI Summary: Patient is a 42-year-old female presenting to the ED from work with a complaint of a likely allergic reaction. She states she ate zucchini bread at work and immediately began to feel tightness in her chest and throat. She states "it feels like an anxiety attack." Patient has a history of anxiety and takes Xanax. She states this feels similar, only worse. Endorses tingling in the neck and tongue and posterior pharynx. Endorses shortness of breath. Denies history of cardiac pathology. Denies any known allergies to zucchini. 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 Hx Last Menstrual Period: 5 yrs ago Onset/Duration: Sudden Onset Timing: Constant Severity Initially: Moderate Severity Currently: Moderate Pain Intensity: 0 Pain Scale Used: 0-10 Numeric Character: Swelling Associated Signs And Symptoms: Positive: Throat Tightening - Allergies/Home Medications Allergies/Adverse Reactions: Allergies Allergy/AdvReac Type Severity Reaction Status Date / Time amoxicillin Allergy Anaphylatic Verified 12/19/17 11:55 Shock clavulanic acid Allergy Anaphylatic Verified 12/19/17 11:55 [From Augmentin] Shock phenytoin [From Dilantin] Allergy Shortness Verified 12/19/17 11:55 of Breath strawberry Allergy Swelling Verified 12/19/17 11:55 Of Face,Lips,& Throat sweet potatoe pie Allergy Swelling Uncoded 03/03/17 20:35 Of Face,Lips,& Throat PMH/Surg Hx/FS Hx/Imm Hx Previously Healthy: Yes Endocrine/Hematology History: Reports: Hx Anticoagulant Therapy - ASA daily, Hx Thyroid Disease Denies: Hx Diabetes Cardiovascular History: Reports: Hx Aneurysm, Hx Angina, Hx Coronary Artery Disease, Hx Deep Vein Thrombosis - states in right arm 2017, Hx Hypercholesterolemia, Hx Hypertension, Other Cardiovascular Problems/Disorders - DVT, MURMUR, H PYLORI Denies: Hx Angioplasty, Hx Atrial Fibrillation, Hx Congestive Heart Failure, Hx Myocardial Infarction, Hx Pacemaker/ICD Respiratory History: Reports: Hx Asthma - states "not so much.", Hx Chronic Obstructive Pulmonary Disease (COPD) - YES, Hx Seasonal Allergies, Hx Sleep Apnea - does not use machine, Other Respiratory Problems/Disorders GI History: Reports: Hx Gastroesophageal Reflux Disease Denies: Other GI Disorders History: Reports: Hx Kidney Stones - states she thinks she has kidney stones Denies: Hx Renal Disease Comment Only: Other Problems/Disorders - states she thinks she has kidney stones Musculoskeletal History: Reports: Hx Back Problems - slipped disks Sensory History: Reports: Hx Contacts or Glasses - wears glasses Denies: Hx Hearing Aid Opthamlomology History: Reports: Hx Contacts or Glasses - wears glasses Neurological History: Reports: Hx Headaches, Hx Migraine, Hx Transient Ischemic Attacks (TIA) - Unconfirmed by patient, Other Neuro Impairments/Disorders - Cerebral Anuerysm, Bi-Polar Denies: Hx Dementia, Hx Seizures Psychiatric History: Reports: Hx Anxiety, Hx Depression, Hx Panic Disorder - SEVERE ANXIETY, Hx Bipolar Disorder Denies: Hx Substance Abuse - Surgical History Surgery Procedure, Year, and Place: C [id number] REMOVED-TUBAL LIGATION-APPENDIX 08/15/14. BRAIN ANEURYSM-[facility] 06/01/16 -1.5 ONLY. BRONCHOSCOPY WITH TRANSBRONCHIAL BIOPSY 07/26/16 Hx Anesthesia Reactions: Yes - takes a little bit longer for patient to wake up - Immunization History Date of Tetanus Vaccine: 2013 Date of Influenza Vaccine: 2013 Infectious Disease History: No Infectious Disease History: Denies: Hx Hepatitis, Hx Human Immunodeficiency Virus (HIV), Traveled Outside the [place] in Last 30 Days - Family History Known Family History: Positive: Cardiac Disease Family History: Positive fhx of CAD - Social History Occupation: Employed Full-time Lives: With Family Alcohol Use: None Hx Substance Use: No Substance Use Type: Reports: None Hx Tobacco Use: Yes Smoking Status (MU): Heavy Every Day Tobacco Smoker Type: Cigarettes Amount Used/How Often: 8 cigarettes a day recently---but usually 2ppd for 30 years Length of Time of Smoking/Using Tobacco: 20+ years Have You Smoked in the Last Year: Yes Review of Systems Constitutional: Negative Negative: Fever, Chills, Fatigue, Skin Diaphoresis Positive: Other - throat tightening Negative: Palpitations, Chest Pain Positive: Shortness Of Breath. Negative: Cough Genitourinary: Negative Positive: no symptoms reported, see HPI Neurological: Negative Positive: Anxious All Other Systems Reviewed And Are Negative: Yes Physical Exam Triage Information Reviewed: Yes Vital Signs On Initial Exam: Initial Vitals Temp Pulse Resp BP Pulse Ox 98.8 F 77 24 113/85 90 12/19/17 11:00 12/19/17 11:00 12/19/17 11:00 12/19/17 11:00 12/19/17 11:00 Vital Signs Reviewed: Yes Appearance: Positive: Well-Appearing, Well-Nourished Skin: Positive: Warm, Skin Color Reflects Adequate Perfusion Head/Face: Positive: Normal Head/Face Inspection Eyes: Positive: EOMI, XIAO, Conjunctiva Clear ENT: Positive: Other - white thick coating to the tongue Neck: Positive: Supple, No Lymphadenopathy Respiratory/Lung Sounds: Positive: Clear to Auscultation, Breath Sounds Present Cardiovascular: Positive: RRR, Pulses are Symmetrical in both Upper and Lower Extremities Musculoskeletal: Positive: Normal, Strength/ROM Intact Neurological: Positive: Speech Normal Psychiatric: Positive: Anxious AVPU Assessment: Alert Diagnostics - Vital Signs Vital Signs Temp Pulse Resp BP Pulse Ox 12/19/17 14:00 97.9 F 74 18 110/86 91 12/19/17 13:00 62 18 93 12/19/17 12:51 68 15 127/79 89 12/19/17 12:21 67 25 112/84 86 12/19/17 12:00 72 18 93 12/19/17 11:51 73 17 144/92 94 12/19/17 11:45 22 12/19/17 11:44 69 20 144/87 96 12/19/17 11:43 69 15 144/87 99 12/19/17 11:21 67 18 131/77 98 12/19/17 11:00 98.8 F 77 24 113/85 90 - Laboratory Lab Results: Lab Results 12/19/17 12/19/17 12/19/17 Range/Units 11:13 11:13 11:13 WBC 6.6 (3.5-10.8) 10^3/ul RBC 4.90 (4.00-5.40) 10^6/ul Hgb 13.6 (12.0-16.0) g/dl Hct 40 (35-47) % MCV 82 (80-97) fL MCH 28 (27-31) pg MCHC 34 (31-36) g/dl RDW 15 (10.5-15) % Plt Count 148 L (150-450) 10^3/ul MPV 10.0 (7.4-10.4) um3 Neut % (Auto) 74.0 (38-83) % Lymph % (Auto) 15.4 L (25-47) % [place] % (Auto) 9.8 H (0-7) % Eos % (Auto) 0.2 (0-6) % Baso % (Auto) 0.6 (0-2) % Absolute Neuts (auto) 4.9 (1.5-7.7) 10^3/ul Absolute Lymphs (auto) 1.0 (1.0-4.8) 10^3/ul Absolute Monos (auto) 0.6 (0-0.8) 10^3/ul Absolute Eos (auto) 0 (0-0.6) 10^3/ul Absolute Basos (auto) 0 (0-0.2) 10^3/ul Absolute Nucleated RBC 0 10^3/ul Nucleated RBC % 0 Sodium 136 (135-145) mmol/L Potassium 4.0 (3.5-5.0) mmol/L Chloride 105 (101-111) mmol/L Carbon Dioxide 24 (22-32) mmol/L Anion Gap 7 (2-11) mmol/L BUN 10 (6-24) mg/dL Creatinine 0.73 (0.51-0.95) mg/dL Est GFR ( Amer) 104.8 (>60) Est GFR (Non-Af Amer) 86.6 (>60) BUN/Creatinine Ratio 13.7 (8-20) Glucose 99 (70-100) mg/dL Lactic Acid 1.3 (0.5-2.0) mmol/L Calcium 9.0 (8.6-10.3) mg/dL Total Bilirubin 0.30 (0.2-1.0) mg/dL AST 19 (13-39) U/L ALT 22 (7-52) U/L Alkaline Phosphatase 109 H (34-104) U/L Total Protein 7.1 (6.4-8.9) g/dL Albumin 4.1 (3.2-5.2) g/dL Globulin 3.0 (2-4) g/dL Albumin/Globulin Ratio 1.4 (1-3) Result Diagrams: 12/19/17 11:13 12/19/17 11:13 Lab Statement: Any lab studies that have been ordered have been reviewed, and results considered in the medical decision making process. Allergic Reaction Course/Dx - Course Course Of Treatment: On arrival, the patient is given methylprednisolone 125, Benadryl 25, and famotidine 40 IV and ativan 1mg. Labs obtained and are unremarkable. Posterior pharynx patent, 97% on room air, no obvious tongue swelling, however evidence of candidiasis. On recheck after administration of medications, patient is feeling much improved. She is requesting discharge home. She will be given nystatin as prescription and will return for any worsening symptoms. She was appropriately kept in the emergency department for 3 hours after ingestion, but do not feel it is necessary to keep her at this time as she is asymptomatic. I discussed that this could've been an anxiety attack as well and she agrees that this could've been a possibility. She will resume her normal Xanax dose at home. - Diagnoses Provider Diagnoses: Anxiety, Allergic reaction Discharge - Sign-Out/Discharge Documenting (check all that apply): Discharge/Admit/Transfer - Discharge Plan Condition: Stable Disposition: HOME Prescriptions: Nystatin SUSPENSION* 500,000 units .SEE ORDER QID #1 [facility] [place] Patient Education Materials: Food Allergy (ED) Referrals: Claudio Gauthier MD [Primary Care Provider] - Additional Instructions: Benadryl at bedtime TODAY Return for any worsening symptoms - Billing Disposition and Condition Condition: STABLE Disposition: Home
== END 2017-12-19 14:00 | disposition home or self-care (01) ==
LOC: ED 10:39
DX: F41.9 Anxiety disorder, unspecified (principal); T78.40XA Allergy, unspecified, initial encounter; X58.XXXA Exposure to other specified factors, initial encounter; Y92.9 Unspecified place or not applicable; F17.210 Nicotine dependence, cigarettes, uncomplicated; Z82.49 Family history of ischemic heart disease and other diseases of the circulatory system; Z79.82 Long term (current) use of aspirin; E07.9 Disorder of thyroid, unspecified; I25.10 Atherosclerotic heart disease of native coronary artery without angina pectoris; Z86.718 Personal history of other venous thrombosis and embolism; E78.00 Pure hypercholesterolemia, unspecified; I10 Essential (primary) hypertension; K21.9 Gastro-esophageal reflux disease without esophagitis; Z87.442 Personal history of urinary calculi; F31.9 Bipolar disorder, unspecified
CPT/HCPCS: 36415; 80053; 83605; 85025; 96360; 96374; 96375; 99282; J1200; J2060; J2930

== ENCOUNTER 2018-01-10 12:51 | Observation (INO) | payer OTHER ==
--- NOTE | 2018-01-10 13:05 | ED ---
HPI Chest Pain - HPI Summary HPI Summary: 42 y/o female presents to the ED c/o sudden onset, severe L chest pain with intermittent shooting pains to her L shoulder down her L arm 10 minutes later. Pain rated 9/10 in severity, worse when she sits up better when she lies down. Pt then vomited, developed diaphoresis. Pain now moved to R side chest. Associated sx: back tightness, SOB. PMHx 3 crushed discs in back, thyroid disorder, HTN, brain aneurysm, blood clots in arm. FHx aunt [place] 64 y/o. Smoker. 1 baby ASA a day This is scribe Ed Kenia documenting for attending Mo Estrada MD. - History of Current Complaint Chief Complaint: EDChestPainROMI Hx Obtained From: Patient Hx Last Menstrual Period: 5 yrs ago Onset/Duration: Started Minutes Ago, Still Present Timing: Constant Pain Intensity: 9 Pain Scale Used: 0-10 Numeric Chest Pain Location: Left Lateral Chest Pain Radiates: Yes Chest Pain Radiates To:: Arm - L Aggravating Factor(s): Position - sitting up Alleviating Factor(s): Position - laying down Associated Signs and Symptoms: Positive: Chest Pain, Shortness of Breath, Back Pain, Vomiting - Additional Pertinent History Primary Care Physician: [id number] - Allergy/Home Medications Allergies/Adverse Reactions: Allergies Allergy/AdvReac Type Severity Reaction Status Date / Time amoxicillin Allergy Severe Anaphylatic Verified 01/10/18 13:45 Shock clavulanic acid Allergy Severe Anaphylatic Verified 01/10/18 13:45 [From Augmentin] Shock strawberry Allergy Severe Swelling Verified 01/10/18 13:45 Of Face,Lips,& Throat phenytoin [From Dilantin] Allergy Shortness Verified 01/10/18 12:57 of Breath sweet potatoe pie Allergy Severe Swelling Uncoded 01/10/18 13:45 Of Face,Lips,& Throat Home Medications: Home Medications ALPRAZolam TAB* [Xanax TAB*] 1 mg PO TID PRN MDD 3 tabs 01/10/18 [History Confirmed 01/10/18] Aspirin EC TAB* [Ecotrin EC Low Dose 81 MG*] 81 mg PO DAILY 01/10/18 [History Confirmed 01/10/18] Baclofen TAB* [Lioresal TAB*] 20 mg PO QID PRN 01/10/18 [History Confirmed ] Hydrocodone/Acetamin 10/325(NF [[place] 10/325 (NF)] 1 tab PO TID PRN MDD 3 tabs 01/10/18 [History Confirmed 01/10/18] Levothyroxine TAB* [Synthroid TAB*] 137 mcg PO DAILY 01/10/18 [History Confirmed 01/10/18] Metoprolol Succinate XL TAB* [Toprol XL TAB*] 50 mg PO DAILY 01/10/18 [History Confirmed 01/10/18] lamoTRIgine TAB(*) [LaMICtal TAB(*)] 200 mg PO DAILY 01/10/18 [History Confirmed 01/10/18] risperiDONE TAB* [RisperDAL*] 2 mg PO DAILY 01/10/18 [History Confirmed 01/10/18 ] PMH/Surg Hx/FS Hx/Imm Hx Previously Healthy: No Endocrine/Hematology History: Reports: Hx Anticoagulant Therapy - ASA daily, Hx Thyroid Disease Denies: Hx Diabetes Cardiovascular History: Reports: Hx Aneurysm, Hx Angina, Hx Coronary Artery Disease, Hx Deep Vein Thrombosis - states in right arm 2016, Hx Hypercholesterolemia, Hx Hypertension, Other Cardiovascular Problems/Disorders - DVT, MURMUR, H PYLORI Denies: Hx Angioplasty, Hx Atrial Fibrillation, Hx Congestive Heart Failure, Hx Myocardial Infarction, Hx Pacemaker/ICD Respiratory History: Reports: Hx Asthma - states "not so much.", Hx Chronic Obstructive Pulmonary Disease (COPD) - YES, Hx Seasonal Allergies, Hx Sleep Apnea - does not use machine, Other Respiratory Problems/Disorders GI History: Reports: Hx Gastroesophageal Reflux Disease Denies: Other GI Disorders History: Reports: Hx Kidney Stones - states she thinks she has kidney stones Denies: Hx Renal Disease Comment Only: Other Problems/Disorders - states she thinks she has kidney stones Musculoskeletal History: Reports: Hx Back Problems - slipped disks Sensory History: Reports: Hx Contacts or Glasses - wears glasses Denies: Hx Hearing Aid Opthamlomology History: Reports: Hx Contacts or Glasses - wears glasses Neurological History: Reports: Hx Headaches, Hx Migraine, Hx Transient Ischemic Attacks (TIA) - Unconfirmed by patient, Other Neuro Impairments/Disorders - Cerebral Anuerysm, Bi-Polar Denies: Hx Dementia, Hx Seizures Psychiatric History: Reports: Hx Anxiety, Hx Depression, Hx Panic Disorder - SEVERE ANXIETY, Hx Bipolar Disorder Denies: Hx Substance Abuse - Surgical History Surgery Procedure, Year, and Place: C [id number] REMOVED-TUBAL LIGATION-APPENDIX 08/15/14. BRAIN [facility]ST[facility] 06/01[facility]16 -1.5 ONLY. BRONCHOSCOPY WITH TRANSBRONCHIAL BIOPSY 07/26/16 Hx Anesthesia Reactions: Yes - takes a little bit longer for patient to wake up - Immunization History Date of Tetanus Vaccine: 2013 Date of Influenza Vaccine: 2013 Infectious Disease History: No Infectious Disease History: Denies: Hx Hepatitis, Hx Human Immunodeficiency Virus (HIV), Traveled Outside the [place] in Last 30 Days - Family History Known Family History: Positive: Cardiac Disease Family History: Positive fhx of CAD - Social History Alcohol Use: None Hx Substance Use: No Substance Use Type: Reports: None Hx Tobacco Use: Yes Smoking Status (MU): Heavy Every Day Tobacco Smoker Type: Cigarettes Amount Used/How Often: 8 cigarettes a day recently---but usually 2ppd for 30 years Length of Time of Smoking/Using Tobacco: 20+ years Have You Smoked in the Last Year: Yes Review of Systems Negative: Fever, Chills Negative: Erythema Negative: Sore Throat Positive: Chest Pain - radiating to L arm Positive: Shortness Of Breath. Negative: Cough Positive: Vomiting. Negative: Abdominal Pain, Nausea Negative: dysuria, hematuria Musculoskeletal: Other - back tightness Negative: Myalgia, Edema Negative: Rash Neurological: Other - no dizziness All Other Systems Reviewed And Are Negative: Yes Physical Exam - Summary Physical Exam Summary: Constitutional: Well-developed, Well-nourished, Alert. Pt is in pain distress, clutching at her chest. Skin: Warm, Dry HENT: Normocephalic; Atraumatic Eyes: Conjunctiva normal Neck: Musculoskeletal ROM normal neck. (-) JVD, (-) Stridor, (-) Tracheal deviation Cardio: Rhythm regular, rate normal, Heart sounds normal; Intact distal pulses; The pedal pulses are 2+ and symmetric. Radial pulses are 2+ and symmetric. (-) Murmur Pulmonary/Chest wall: Effort normal. (-) Respiratory distress, (-) Wheezes, (-) Rales. Costochondral tenderness, Rib tenderness, does not exactly reproduce her symptoms. Abd: Soft, (-), epigastric tenderness, (-) Distension, (-) Guarding, (-) Rebound Musculoskeletal: (-) Edema Lymph: (-) Cervical adenopathy Neuro: Alert, Oriented x3 Psych: Mood and affect Normal Triage Information Reviewed: Yes Vital Signs On Initial Exam: Initial Vitals Temp Pulse Resp BP Pulse Ox 97.3 F 85 18 127/80 94 01/10/18 12:52 01/10/18 12:52 01/10/18 12:52 01/10/18 12:52 01/10/18 12:52 Vital Signs Reviewed: Yes Diagnostics - Vital Signs Vital Signs Temp Pulse Resp BP Pulse Ox 01/10/18 12:52 97.3 F 85 18 127/80 94 - Laboratory Result Diagrams: 01/10/18 13:13 01/10/18 13:13 Lab Statement: Any lab studies that have been ordered have been reviewed, and results considered in the medical decision making process. - Radiology CXR Xray Interpretation: No Acute Changes - STABLE INTERSTITIAL DISEASE. NO ACTIVE CARDIOPULMONARY DISEASE. Radiology Interpretation Completed By: Radiologist - CT CHEST/THORAX CTA CT Interpretation Completed By: Radiologist - 1. NO PULMONARY ARTERIAL FILLING DEFECT TO SUGGEST PULMONARY EMBOLISM. 2. STABLE CHRONIC INTERSTITIAL LUNG DISEASE. 3. ENLARGEMENT OF THE PULMONARY ARTERY COMPARED TO THE AORTA SUGGESTIVE OF PULMONARY ARTERIAL HYPERTENSION. - Additional Comments Diagnostic Additional Comments: EKG - 13:03 - SR @ 73 BPM. No STEMI. Chest Pain Course/Dx - Course Course Of Treatment: Pt feels better in the ED. CP resolved, but still wheezing. Pt on 2L O2 NC. - Diagnoses Provider Diagnoses: Left sided chest pain, Hypoxia, COPD exacerbation, Pulmonary hypertension - Provider Notifications Discussed Care Of Patient With: Torie Carey Time Discussed With Above Provider: 16:55 Instructed by Provider To: Admit As Inpatient Discharge - Sign-Out/Discharge Documenting (check all that apply): Patient Departure - Discharge Plan Condition: Stable Disposition: ADMITTED TO [facility] Referrals: Claudio Gauthier MD [Primary Care Provider] -
--- OUTSIDE RECORDS SUMMARY | 2018-01-10 13:07 | XMS REPORT ---
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 Payers Type Date Identification Numbers Payment Provider Subscriber Commercial Effective: Policy Number: [id number] Michael Hdz 2015 [facility] Markie [facility] PayID: [id number] [address] [place] [address] Problems Description No Information Family History Date [...] J44.1 Denys s by mouth x 3 [place] days, then 2 III, tabs by [employer] C[employer]-C mouth x 3 days, then 1 tab by mouth x 3 days then 1/2 tab by mouth x 4 days Doxycycline 07/31 Active Capsules 100mg 20cap 1 take by J44.1 Denys Monohydrate s mouth [place] capsule 2 III, times per [employer] CANS-C day for 10 days for infection Baclofen [...] Oxygen 03/07 Active For F17.210 Claudio assessing [facility] COPD status. MD Metoprolol 03/01 Active Tablets [...] Mally s capsules by Luiza, mouth three V[employer]UUM TE[employer] CANS-C times a day as needed for coughing [...] take by J44.1 Denys cl s mouth [place] - capsule 2 III, 07/31 times per V[employer]UM TE[employer] CANS-C day for 10 days for infection Dulera [...] twice [place] - a day , 06/23 [place] 06/07 Hx Tablets 5-325mg 90tab 1 tab by Claudio s mouth three [place] - times a day , 06/07 as needed Tessalwayne Ochoa 06/07 Hx Capsules 100mg 60cap take 1 J44.9 Claudio s capsule by Heetarmida - mouth 3 , 10/23 times per day as needed for cough Clindamycin HCL 05/17 Hx Capsules 300mg 21cap take 1 H66.91 Claudoi s capsule by Heetarmida - mouth every , 06/07 8 hours for 7 days Morphine Sulfate 05/17 Hx Tablets 15mg 60tab 1 tab by Claudio s mouth two [place] - times a day , 06/07 as needed Azithromycin 05/05 Hx Tablets 250mg 6tabs take 2 J01.90 tablets Luiza, - today then 1 VACUUM TE[employer] CANS-C 06/07 tablet daily for the next 4 [...] CPT Code Status Date Vaccine Lot # [id number] Given 03/07/2017 Influenza Virus Vaccine, Quadrivalent, 3 Yr > [id number] Quad, Preserv Free 96648 Given 03/15/2016 Influenza Virus Vaccine, Quadrivalent, 3 Yr > [id number] Quad, Preserv Free 72166 Given 04/14/2015 Influenza Virus Vaccine, Quadrivalent, 3 Yr > [id number] Quad, Preserv Free 70659 Given 06/18/2009 Tdap (Adacel) Vital Signs Date Vital Result Comment 12/21/2017 Weight 230.00 lb Weight in kg's 104.328 BP Systolic 130 mmHg BP Diastolic 72 mmHg Heart Rate 72 /min Body Temperature 97.1 F Respiratory Rate 16 /min 12/01/2017 Weight 233.00 lb Weight in kg's [...] Color Yellow Urine Appearance Turbid Urine Specific [place] 1.016 1.010-1.030 Urine pH 7.0 5-9 Urine [...] Color Yellow Urine Appearance Cloudy Urine Specific [place] 1.010 1.010-1.030 Urine pH 7.0 5-9 Urine [...] Reference ranges based on room air. 2 [facility] Severe Sepsis and Septic Shock Management Bundle [...] [address]: Jorge Mendoza MD Acct: [id number] Unit: [id number] AGE: 41 Location: ED Re01/03/17 SEX: F Status: DEP ER SPEC: [id number] YOANA: 01/04/17-0145 [facility] DR: Jorge Mendoza MD REQ: [id number] RECD: 01/04/17 STATUS: AALIYAH REES DR: Claudio Gauthier MD _ [facility]: Blood Cult COMMENTS: Patient is On Antibiotics? NO Procedure Result Reported Site Aerobic Culture Bottle Final 01/09/17- 0151 ML No Growth Day 5 Anaerobic Culture Bottle Final 01/09/17- 0151 ML No Growth Day 5 * ML - [facility] ([facility]) . END OF REPORT * ML=Testing performed at Main Lab DEPARTMENT OF PATHOLOGY, [address] [place] [address] John Andrews M.D. Director [facility] # [id number] 7 Because ethnic data is not always [...] 5 Kidney failure <15 (or dialysis) 8 [facility] Severe Sepsis and Septic Shock Management Bundle Measure requires all lactic acids initially measuring >2.0 mmol/L be repeated. 9 >100 to <200 pg/mL: likely compensated congestive heart failure (CHF) 200 to 400 pg/mL: likely moderate CHF >400 pg/mL: likely moderate to severe CHF 10 Acute inflammation: >10.00 11 SEE RESULT BELOW Name: ALYSIA ADEN : [address]: Nahun Ferguson MD Acct: [id number] Unit: [id number] AGE: 41 Location: [place] [address] Re11/25/16 Dis: 11/26/16 SEX: F Status: DIS IN SPEC: [id number] YOANA: 11/24/16-[address]: Flaquito Coto DO REQ: [id number] RECD: 11/24/16 STATUS: AALIYAH REES DR: Claudio Gauthier MD _ SOURCE: BLOOD,VENO SPDESC: ORDERED: Blood Cult Procedure Result Reported Site Aerobic Culture Bottle Final 11/29/16- 8 ML No Growth Day 5 Anaerobic Culture Bottle Final 11/29/16- 2208 ML No Growth Day 5 * ML - MAIN LAB ([facility]) . END OF REPORT * ML=Testing performed at Main Lab DEPARTMENT OF PATHOLOGY, [address] [place] [address] John Andrews M.D. Director [facility] # [id number] 12 Desirable <150 Borderline high 150-199 High [...] and in selective patients <6.0%.Please refer to [place] [employer] Diabetic care guidelines for further information. 17 LEFT UPPER LOBE LAVAGE: LUNG NODULES, LEFT UPPER LOBE 18 SEE RESULT BELOW Name: ALYSIA ADEN Wilder : [address]: Janette Sebastian MD Acct: [id number] Unit: [id number] AGE: 40 Location: [place] Re07/26/16 SEX: F Status: DEP SDC SPEC: [id number] YOANA: 07/26/16-1252 [facility] DR: Janette Sebastian MD REQ: [id number] RECD: 07/26/16-1314 STATUS: AALIYAH JEWELL DR: Claudio Gauthier MD _ SOURCE: BODY FLUID SPDESC:BRONCH WAS ORDERED: BF Cult/GS COMMENTS: LEFT UPPER LOBE LAVAGE: LUNG NODULES, LEFT UPPER LOBE Procedure Result Reported Site Body Fluid Gram Stain Final 07/26/16- 1352 ML 4+ Neutrophils 1+ Epithelial Cells 1+ Gram Positive Cocci Preparation By Cytospin Smear Body Fluid Culture Final 07/30/16- 0757 ML Organism 1 NORMAL ALEXANDER Quantity 1+ * ML - MAIN LAB ([facility]) . END OF REPORT * ML=Testing performed at Main Lab DEPARTMENT OF PATHOLOGY, [address] [place] [address] John Andrews M.D. Director [facility] # [id number] 19 SEE RESULT BELOW Name: ALYSIA ADEN : [address]: Janette Sebastian MD Acct: [id number] Unit: [id number] AGE: 40 Location: OR Re07/26/16 SEX: F Status: REG SDC SPEC: [id number] YOANA: 07/26/16-1252 [facility] DR: Janette Sebastian MD REQ: [id number] RECD: 07/26/16 STATUS: RES OTHR DR: Claudio [...] for diagnosis. * ML - MAIN LAB ([facility]) . END OF REPORT * ML=Testing performed at Main Lab DEPARTMENT OF PATHOLOGY, [address] [place] [address] John Andrews M.D. Director [facility] # [id number] 20 SEE RESULT BELOW Name: ALYSIA ADEN : [address]: Janette Sebastian MD Acct: [id number] Unit: [id number] AGE: 40 Location: OR Re07/26/16 SEX: F Status: DEP SDC SPEC: [id number] YOANA: 07/26/16-1252 [facility] DR: Janette Sebastian MD REQ: [id number] RECD: 07/26/16 STATUS: RES OTHR DR: Claudio [...] for diagnosis. * ML - [facility] ([facility]) . END OF REPORT * ML=Testing performed at Main Lab DEPARTMENT OF PATHOLOGY, [address] [place] [address] John Andrews M.D. Director [facility] # [id number] 21 SEE RESULT BELOW Name: ALYSIA ADEN : [address]: Janette Sebastian MD Acct: [id number] Unit: [id number] AGE: 40 Location: [place] Re07/26/16 SEX: F Status: DEP [facility] SPEC: [id number] YOANA: 07/26/16-1252 [facility] DR: Janette Sebastian MD REQ: [id number] RECD: 07/26/16-1314 STATUS: AALIYAH JEWELL DR: Claudio Gauthier MD [...] performed at Main Lab DEPARTMENT OF PATHOLOGY, [address] [place] [address] John Andrews M.D. Director [facility] # [id number] 22 SOURCE: BRONCHOALVEOLAR LAVAGE, LEFT UPPER LOBE LAVAGE MYCOBACTERIAL CULTURE FINAL No growth after 60 days of incubation. Test Performed by: [address] [address] 23 Because ethnic data is not always [...] 5 Kidney failure <15 (or dialysis) 25 [id number] 26 [id number] 27 [id number] 28 [id number] 29 [id number] 30 Reference Range and Interpretation: TnI (ng/mL) Interpretation Less Than 0.03 ng/mL Not supportive of diagnosis of HI 0.03 - 0.50 ng/mL Indeterminate: suggest serial studies if clinically indicated. Greater than 0.5 ng/mL Consistent with diagnosis of HI 31 Because ethnic data is not always [...] (or dialysis) 32 SEE RESULT BELOW Name: ALYSAI ADEN : [address]: Manuela Lopez MD Acct: [id number] Unit: [id number] AGE: 40 Location: ED Re11/23/15 SEX: F Status: DEP ER SPEC: [id number] YOANA: 11/23/15 [facility] DR: Manuela Lopez MD REQ: [id number] RECD: 11/23/15 STATUS: AALIYAH JEWELL DR: Claudio Gauthier MD _ SOURCE: URINE SPDES: ORDERED: Urine Culture Procedure Result Reported Site Urine Culture Final 11/25/15806 ML No growth of clinically significant organisms * ML - [facility]) . END OF REPORT * ML=Testing performed at Main Lab DEPARTMENT OF PATHOLOGY, [address] [place] [address] John Andrwes M.D. Director [facility] # [id number] 33 Comment: 23:30 please 34 Reference Range and Interpretation: TnI (ng/mL) Interpretation Less Than 0.03 ng/mL Not supportive of diagnosis of HI 0.03 - 0.50 ng/mL Indeterminate: suggest serial studies if clinically indicated. Greater than 0.5 ng/mL Consistent with diagnosis of HI 35 SEE RESULT BELOW Name: ALYSIA ADEN : [address]: Claudio Gauthier MD Acct: [id number] Unit: [id number] AGE: 40 Location: [facility] Re11/04/15 SEX: F Status: REG REF SPEC: [id number] YOANA: 11/04/15-3 [facility] DR: Claudio Gauthier MD REQ: [id number] RECD: 11/04/15-1252 STATUS: COMP _ SOURCE: URINE SPDESC: ORDERED: Urine Culture Procedure Result Reported Site Urine Culture Final 11/06/15- 900 ML Organism 1 KLEBSIELLA PNEUMONIAE Carlock Count 10-25,000 (Moderate) CFU/ML Organism 2 NORMAL ALEXANDER Carlock Count 10-25,000 (Moderate) CFU/ML 1. KLEBSIELLA PNEUMONIAE [...] antibiotic reporting. * ML - MAIN LAB ([facility]) . END OF REPORT * ML=Testing performed at Main Lab DEPARTMENT OF PATHOLOGY, [address] [place] [address] John Andrews M.D. Director [facility] # [id number] 36 Because ethnic data is not always [...] levels of up to 20 mIU/mL 38 [facility] Severe Sepsis and Septic Shock Management Bundle [...] 0.03 ng/mL Not supportive of diagnosis of HI 0.03 - 0.50 ng/mL Indeterminate: suggest serial studies if clinically indicated. Greater than 0.5 ng/mL Consistent with diagnosis of HI 43 Desirable <150 Borderline high 150-199 High [...] and in selective patients <6.0%.Please refer to [place] [employer] Diabetic care guidelines for further [...] Procedures Date CPT Code Description Status 07/31/2017 35804 Nebulizer Treatment Completed 09/20/2016 16311 Spirometry Completed 06/23/2016 56655 EKG, at Least 12 Leads w/Interpretation and Report Completed 11/04/2015 74303 EKG, at Least 12 Leads w/Interpretation and Report Completed Encounters Type Date Location Provider CPT E/M Dx Office Visit 12/01/2017 9:45a Main Office EVERARDO Caldera-C 36055 S93.601A Office Visit 07/31/2017 10:30a Main Office EVERARDO Vance III-C 13539 J44.1 Office Visit 07/06/2017 8:45a [place] [address] J44.1 L40.0 Office Visit 06/07/2017 11:00a [place] [address] L40.0 I88.1 Office Visit 04/09/2017 2:45p [place] [address] J44.1 Office Visit 03/26/2017 1:45p [place] [address] H10.89 Office Visit 03/07/2017 10:15a [place] [address] F17.210 R51 J44.9 M54.5 Z23 Office Visit 12/25/2016 8:45a [place] [address] F17.210 M54.5 R21 Office Visit 11/30/2016 11:00a [place] [address] J18.9 F17.210 S00.451A M54.5 Office Visit 10/23/2016 8:00a [place] [address] Z00.8 J44.9 E03.9 M54.5 E66.3 Z72.0 I60.9 Office Visit 09/20/2016 10:30a [place] [address] J44.9 Office Visit 09/15/2016 3:15p [place] [address] H60.11 Office Visit 08/24/2016 9:45a [place] [address] E03.9 J44.9 M54.5 Office Visit 06/23/2016 1:15p [place] [address] R91.8 J44.9 M54.5 R07.89 Office Visit 06/07/2016 3:30p [place] [address] J44.9 M54.5 H66.91 Office Visit 05/17/2016 4:15p [place] [address] H66.91 J44.9 M54.5 Office Visit 05/05/2016 4:30p Main Office Mally Jarrett [employer] CANS-C 24352 J01.90 Office Visit 03/22/2016 8:45a [place] [address] T43.595A Office Visit 03/15/2016 8:45a [place] [address] F30.9 E03.9 E66.3 Z23 Office Visit 02/23/2016 9:30a [place] [address] M54.5 H91.91 Office Visit 01/27/2016 2:45p [place] [address] M54.5 Office Visit 11/29/2015 9:30a [place] [address] R00.2 M54.5 Office Visit 11/22/2015 1:00p [place] [address] M54.5 Office Visit 11/04/2015 10:15a [place] [address] I67.1 Office Visit 10/07/2015 9:45a [place] [address] S29.012A Office Visit 09/24/2015 9:45a [place] [address] S29.012A Office Visit 09/17/2015 9:15a [place] [address] M54.5 F25.0 Office Visit 09/03/2015 9:30a [place] [address] M54.5 Office Visit 08/23/2015 9:00a [place] [address] S29.001A J18.9 K21.9 Office Visit 07/28/2015 10:00a [place] [address] J01.90 Office Visit 07/19/2015 8:00a [place] [address] Z00.8 I10 Z72.0 M54.5 Office Visit 05/17/2015 9:00a [place] [address] F17.213 M54.5 I60.9 Office Visit 04/14/2015 9:15a [place] [address] Z72.0 M54.5 I10 I60.9 Z23 Plan of Care 12/21/2017 - Claudio Gauthier, MDM54.5 Low back painNew Therapy:Physical Therapy -Evaluate And TreatComments:She reports a nearly complete tolerance to her medications. We discussed that this is a risk with narcotics. If she is able to return to true p.r.n. use, she will still be able to obtain some short-term benefit from this medication. At the moment, she is probably getting more benefit from the Tylenol.Her last MRI showed degenerative changes in her back. Since then her symptoms have become worse, butthey have not really changed in basic nature. I'm not sure an MRI would be useful at this point, Mainor doubt a neurosurgeon would have a surgery to offer her.She has not tried physical therapy yet. sheis willing to try it today.We also discussed the importance of quitting smoking. We discussed that this will allow healing of injured body parts like her back.We also discussed the need for continued weight loss.Follow up:PT referralRecommendations:Decrease pain meds to PRN use gradually. Take tylenol otherwise.
[2018-01-10] MEDS ORDERED: Aspirin 81 mg CHEW TAB* 81 MG TAB.CHEW PO ONE (13:14)
[2018-01-10] MEDS ORDERED: Nitroglycerin TAB 0.4 MG* 0.4 MG TAB SL ONE (13:14)
[2018-01-10] MEDS ORDERED: Morphine VIAL* 4 MG/ML VIAL (1 ml vial) IV ONE (13:14)
[2018-01-10 13:22] LABS: Hematocrit 40 % (35-47); Hemoglobin 13.6 g/dl (12.0-16.0); Mean Corpuscular HGB Conc 34 g/dl (31-36); Mean Corpuscular Hemoglobin 28 pg (27-31); Mean Corpuscular Volume 83 fL (80-97); Mean Platelet Volume 8.9 um3 (7.4-10.4); Platelet Count 179 10^3/ul (150-450); Red Blood Count 4.88 10^6/ul (4.00-5.40); Red Cell Distribution Width 15 % (10.5-15)
[2018-01-10] MEDS ORDERED: Morphine INJ* 2 MG/ML 1 ML SYRINGE (TWO MG - NEW SYRINGE VERSION) ONE (13:33)
[2018-01-10 13:49] LABS: ABS Basophils 0.1 10^3/ul (0-0.2); ABS Eosinophils 0 10^3/ul (0-0.6); ABS Lymphocytes 1.1 10^3/ul (1.0-4.8); ABS Monocytes 0.7 10^3/ul (0-0.8); ABS Neutrophils 4.1 10^3/ul (1.5-7.7)
[2018-01-10 13:51] LABS: EGFR Non-African American 70.7 (>60)
[2018-01-10 13:53] LABS: ABS Basophils 0 10^3/ul (0-0.2); ABS Neutrophils 4.2 10^3/ul (1.5-7.7); Monocytes % 11 % (0-7)
[2018-01-10] MEDS ORDERED: Iohexol 350* (CONTRAST) 500 ML MDV IV ONE (14:34)
[2018-01-10] MEDS ORDERED: methylPREDNISolone 125 MG* 2 ML VIAL IV ONE (14:37)
[2018-01-10] MEDS ORDERED: Albuterol/Ipratropium NEB.SOL* Albuterol 2.5 MG/Ipratropium 0.5 MG 3 ML INH ONE ×2 (14:37→16:47)
--- NOTE | 2018-01-10 14:47 | RAD ---
HISTORY: SOB, CP LEFT SIDE COMPARISONS: February 10, 2017 VIEWS: 1: frontal portable view of the chest at 1:44 PM FINDINGS: LINES AND TUBES: None. CARDIOMEDIASTINAL SILHOUETTE: The cardiomediastinal silhouette is normal for portable technique. PLEURA: The costophrenic angles are sharp. No pleural abnormalities are noted. LUNG PARENCHYMA: There is a stable finding reticular pattern throughout both lungs. ABDOMEN: The upper abdomen is clear. There is no subphrenic gas. BONES AND SOFT TISSUES: No bone or soft tissue abnormalities are noted. IMPRESSION: STABLE INTERSTITIAL DISEASE. NO ACTIVE CARDIOPULMONARY DISEASE.
--- NOTE | 2018-01-10 15:34 | RAD ---
HISTORY: CP, HX DVT, chest pain COMPARISONS: June 15, 2016 TECHNIQUE: Multiple contiguous axial CT scans of the chest were obtained after the administration of nonionic intravenous contrast, timed to the pulmonary arterial phase of contrast enhancement.. Coronal and sagittal multiplanar reformations are also submitted for review. FINDINGS: NECK AND THYROID: The lower neck and thyroid are unremarkable. CHEST WALL: There is no lower cervical, axillary, or supraclavicular lymphadenopathy by size criteria. HEART AND PERICARDIUM: The heart is unremarkable. AORTA AND PULMONARY VASCULATURE: There is no pulmonary arterial filling defect to suggest pulmonary embolism. There is no linear filling defect within the aorta to suggest aortic dissection. The pulmonary artery is enlarged compared to the aorta. MEDIASTINUM: There is no mediastinal lymphadenopathy by size criteria. YO: There is no hilar lymphadenopathy by size criteria. AIRWAY AND ESOPHAGUS: The airway is unremarkable, without endobronchial filling defect. The esophagus is grossly normal. LUNG PARENCHYMA: Again noted is a diffuse pattern of septal and nonseptal thickening with an apical and central prominence. There is centrilobular nodularity. PLEURA: No pleural abnormalities are noted. UPPER ABDOMEN: The upper abdomen is unremarkable. BONES AND SOFT TISSUES: No bone or soft tissue abnormalities are noted. OTHER: None. IMPRESSION: 1. NO PULMONARY ARTERIAL FILLING DEFECT TO SUGGEST PULMONARY EMBOLISM. 2. STABLE CHRONIC INTERSTITIAL LUNG DISEASE. 3. ENLARGEMENT OF THE PULMONARY ARTERY COMPARED TO THE AORTA SUGGESTIVE OF PULMONARY ARTERIAL HYPERTENSION.
[2018-01-10] MEDS ORDERED: Albuterol 2.5 MG/3 ML NEB.SOL* (0.083%) INH PRN (17:14)
[2018-01-10] MEDS ORDERED: Baclofen TAB* 20 MG PO PRN (17:14)
--- NOTE | 2018-01-10 18:38 | RAD ---
INDICATION: Chest pain evaluate for deep venous thrombosis. COMPARISON: Comparison is made with a prior study from February 12, 2013. TECHNIQUE: Multiple real-time, color flow and Doppler tracings of both lower extremities were obtained. FINDINGS: The common femoral, femoral, profunda femoral and popliteal veins all demonstrate normal compressibility, augmentation with compression and phasic response with respiration. The posterior tibial and peroneal veins demonstrate normal compressibility and augmentation with compression. IMPRESSION: NO EVIDENCE FOR DEEP VENOUS THROMBOSIS.
--- NOTE | 2018-01-10 19:12 | HP ---
CC: Dr. Gauthier * HISTORY AND PHYSICAL: DATE OF ADMISSION: 01/10/18 PRIMARY CARE PROVIDER: Dr. Gauthier. CHIEF COMPLAINT: Chest pain. HISTORY OF PRESENT ILLNESS: Ms. Aden is a 42-year-old female with a history of hypertension, ongoing tobacco abuse, and obesity, who presented to the emergency room with complaints of chest pain. 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 She describes the pain as initiating under her left breast and then radiating up to her left shoulder. She states that with the chest pain , she had associated diaphoresis and vomiting. She denied any associated shortness of breath. She states that the pain got progressively stronger until she was in the emergency room, at which time she received nitroglycerin, aspirin , and morphine and with this, her chest pain resolved. She suspects the chest pain is present for approximately 1 hour. At this point, she is completely chest pain free. She does state that she had a stress test many years ago. She does not remember the results. PAST MEDICAL HISTORY: 1. Bipolar disorder. 2. Hypothyroidism. 3. Hypertension. PAST SURGICAL HISTORY: 1. . 2. Tubal ligation. 3. Teeth extraction. 4. Cholecystectomy. 5. Appendectomy. MEDICATIONS: 1. Lamictal 200 mg p.o. daily. 2. Levothyroxine 137 mcg p.o. daily. 3. Baclofen 20 mg p.o. 4 times a day p.r.n. spasms. 4. Risperdal 2 mg p.o. daily. 5. Metoprolol XL 50 mg p.o. daily. 6. Aspirin 81 mg p.o. daily. 7. [place] 10/325 one tab p.o. t.i.d. p.r.n. pain. 8. Xanax 1 mg p.o. t.i.d. p.r.n. anxiety. ALLERGIES: AUGMENTIN and DILANTIN. FAMILY HISTORY: Mom is living. She is 66. She also has a history of bipolar disorder. Dad is . She does not know his medical history. SOCIAL HISTORY: The patient smokes approximately 1-1/2 packs per day and has done so for the last 30 years. She denies any alcohol use. 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 She is technically , but from her . She has 3 children. She indicates her mom, eBth, would be her first health care proxy and her alternate is her son Branden. REVIEW OF SYSTEMS: A complete 11-system review of systems was obtained. Pertinent positives and negatives are as per HPI, and in addition, the patient does admit to lower extremity edema of the right greater than left leg for the last 1 week, though she denies any recent long distance travel. The rest of the review of systems is negative. PHYSICAL EXAMINATION GENERAL: The patient is a well-developed, obese, middle-aged female seen sitting in the stretcher, appearing to be in no acute distress. VITAL SIGNS: Blood pressure 118/85, pulse 73, respirations 20, temp 97.3, O2 sat 93% on 2 liters. HEENT: Pupils are equal and round. Extraocular muscles are intact. Oropharynx is clear. Oral mucosa is moist. The patient wears upper and lower dentures. NECK: There is no submandibular, cervical, or supraclavicular adenopathy. Thyroid is not enlarged. No thyroid nodules noted. CARDIAC: Normal S1, S2. Regular rate and rhythm. I do not appreciate any murmurs. There is right greater than left lower extremity edema. ABDOMEN: Bowel sounds are present. Abdomen is obese, soft, nontender, and nondistended. MUSCULOSKELETAL: There is no cyanosis or clubbing of the digits. There is full active range of motion of all 4 extremities. NEUROLOGIC: Cranial nerves II through XII are grossly intact. Sensation is intact to light touch throughout. Strength is 5/5 and symmetric in both upper and lower extremities bilaterally. PSYCHIATRIC: The patient is alert. She is oriented x3. Affect appears appropriate. SKIN: Warm and dry. There are no rashes. DIAGNOSTIC STUDIES/LAB DATA: WBC 6.0, hemoglobin 13.6, hematocrit 40, platelets 179. Sodium 140, potassium 4.1, chloride 105, CO2 of 27, BUN 11, creatinine 0.87, glucose 100, lactic acid 1.4, calcium 9.5. Bilirubin 0.2, AST 17, ALT 21, alk phos 101. Troponin 0.01, down to 0.0. Albumin 4.3. EKG reveals normal sinus rhythm without any acute ST-T wave abnormalities. Chest x-ray, stable interstitial disease without any acute cardiopulmonary disease. CTA chest, no pulmonary arterial filling defect to suggest pulmonary embolism. There is stable chronic interstitial lung disease, enlargement of the pulmonary artery compared to the aorta suggestive of pulmonary arterial hypertension. ASSESSMENT AND PLAN: Ms. Aden is a 42-year-old female with a history of hypertension, ongoing tobacco abuse, and obesity, who presents to the emergency room with complaints of chest pain. 1. Chest pain. The patient will be admitted and have 1 more troponin drawn. Her EKG does not reveal any ischemic changes. Given her history of ongoing tobacco abuse and obesity as well as hypertension, the patient will undergo stress test tomorrow. At this point, she is completely chest pain free. We will monitor for recurrent symptoms. The patient has been ruled out for PE. I will, however, get Dopplers of her lower extremities given the asymmetric swelling. The patient does have a history of a right upper extremity deep venous thrombosis in the setting of having a PICC line. 2. Hypertension. The patient's blood pressure is under good control. She will continue on her metoprolol XL. 3. Hypothyroidism. Continue Synthroid at home dose. 4. Bipolar disorder. Continue Lamictal, Risperdal, and Xanax. 5. DVT prophylaxis: According to the Adult Thrombosis Prophylaxis Risk Factor Assessment Guide, the patient has a total risk factor score of 5 making her highest risk. She will be placed on heparin 5000 units subcutaneous q.8 hours. 6. Code status is full. TIME SPENT: Sixty five minutes were spent admitting this patient, of which greater than half spent [id number] with the patient and her family reviewing her history and performing a physical exam as well as reviewing old records. [id number]/[facility] #: [id number] ELIAZAR
[2018-01-10] MEDS: Heparin VIAL(*) 5000 UNITS/ML VIAL (FIVE THOUSAND) SUBCUT SCH (21:28)
[2018-01-10] MEDS: ALPRAZolam TAB* 0.5 MG PO PRN (21:28)
[2018-01-10] MEDS ORDERED: Melatonin 3 MG TAB PO PRN (21:49)
[2018-01-11] MEDS: Hydrocodone/Acetamin 10/325 1 TAB PO PRN ×2 (01:09→09:36)
[2018-01-11] MEDS ORDERED: Levothyroxine TAB* 137 MCG TAB PO SCH (06:00)
[2018-01-11] MEDS: Heparin VIAL(*) 5000 UNITS/ML VIAL (FIVE THOUSAND) SUBCUT SCH ×2 (06:02→15:08)
[2018-01-11] MEDS ORDERED: lamoTRIgine TAB(*) 100 MG PO SCH (09:00)
[2018-01-11] MEDS ORDERED: Metoprolol Succinate XL TAB* 50 MG PO SCH (09:00)
[2018-01-11] MEDS ORDERED: risperiDONE TAB* 2 MG PO SCH (09:00)
[2018-01-11] MEDS ORDERED: Aspirin EC TAB* 81 MG TAB.EC PO SCH (09:00)
[2018-01-11] MEDS: ALPRAZolam TAB* 0.5 MG PO PRN (09:45)
[2018-01-11 11:43] VITALS: BP 146/77
--- NOTE | 2018-01-11 13:13 | RAD ---
Edited for charges. INDICATION: Chest pain COMPARISON: Myocardial SPECT September 13, 2012 TECHNIQUE: A single day SPECT protocol was utilized. Rest images were acquired following the intravenous injection of 10.9 millicuries of technetium 99m tetrofosmin. Pharmacologic stress images were acquired following the intravenous administration of 25.8 millicuries of technetium 99m tetrofosmin. This examination is limited due to lack of CT attenuation correction as the patient stated that she was claustrophobic FINDINGS: There are no defects of the stress-induced or fixed nature. The cardiac chamber size is normal. There are no wall motion abnormalities. The ejection fraction is calculated 69 % during stress. IMPRESSION: NO DEFECTS OF A STRESS-INDUCED OR FIXED NATURE. NORMAL WALL MOTION AND CONTRACTILITY ASSESSMENT: LOW-RISK Based on imaging criteria from ACC/AHA 2002 Guideline Update for the Management of Patients With Chronic Stable Angina Table 23. Noninvasive Risk Stratification. MTDD
[2018-01-11] MEDS ORDERED: Regadenoson* 0.4 MG/5 ML SYRINGE ONE (13:23)
--- NOTE | 2018-01-12 02:59 | DS ---
CC: Dr. Gauthier * DISCHARGE SUMMARY: DATE OF ADMISSION: 01/10/18 DATE OF DISCHARGE: 01/11/18 PRIMARY CARE PROVIDER: Dr. Gauthier. PRINCIPAL DIAGNOSIS: Noncardiac chest pain. SECONDARY DIAGNOSES: 1. Hypertension. 2. Hypothyroidism. 3. Bipolar disorder. DISCHARGE MEDICATIONS: 1. Lamictal 200 mg p.o. daily. 2. Levothyroxine 137 mcg p.o. daily. 3. Baclofen 20 mg p.o. 4 times a day p.r.n. for spasms. 4. Risperdal 2 mg p.o. daily. 5. Metoprolol XL 50 mg p.o. daily. 6. Aspirin 81 mg p.o. daily. 7. [place] 10/325 one tab p.o. t.i.d. p.r.n. pain. 8. Nicotrol inhaler 1 cartridge inhaled q.2 hours p.r.n. craving. HOSPITAL COURSE: Ms. Aden is a 42-year-old female with a history of hypertension, hypothyroidism, and ongoing tobacco abuse, who presents to the emergency room with complaints of chest pain. The patient was admitted and ruled out for an acute coronary syndrome and serial troponins. She ultimately underwent an exercise nuclear stress test on the day of discharge, which do not reveal any evidence of fixed or reversible deficits. At this point, the patient is felt to be stable for discharge home. PHYSICAL EXAMINATION: On the day of discharge, the patient is awake, alert, and oriented, sitting up in bed, in no acute distress. Vital signs are stable with a blood pressure of 146/77, pulse 68, respirations 20, temp of 98.0 and O2 sat of 91%. Her cardiac exam reveals a normal S1, S2 with a regular rate and rhythm. There is trace lower extremity edema. Pulmonary: Lung sounds are diminished throughout. Abdomen is soft, nontender, nondistended. FOLLOWUP CONCERNS: The patient is being discharged home today, 01/11/18. ACTIVITY LEVEL: As tolerated. DIET: Low fat. CONDITION ON DISCHARGE: Stable. The patient should follow up with Dr. Gauthier in the next 4 to 7 days. TIME SPENT: Twenty minutes were spent discharging this patient of which greater than half was spent [id number] with the patient and her family reviewing the discharge plan and differential diagnosis of her chest pain. [id number]/[facility] #: [id number] [facility]
== END 2018-01-11 16:00 | disposition home or self-care (01) ==
LOC: ED 12:51 → MEDTELE 17:10
PROVIDERS: ADMIT Hospitalist; ATTEND Hospitalist
DX: R07.9 Chest pain, unspecified (principal); I10 Essential (primary) hypertension; E03.9 Hypothyroidism, unspecified; F31.9 Bipolar disorder, unspecified; Z79.82 Long term (current) use of aspirin; Z88.1 Allergy status to other antibiotic agents; Z91.048 Other nonmedicinal substance allergy status; Z91.09 Other allergy status, other than to drugs and biological substances; F17.200 Nicotine dependence, unspecified, uncomplicated
CPT/HCPCS: 36415; 71045; 71275; 78452; 80053; 83605; 84484; 85025; 85060; 85379; 93005; 93017; 93970; 99284; A9270-GY; A9502; G0378; J1644; J2270; J2785; J2930

== ENCOUNTER 2018-01-27 13:36 | Emergency (ER) | payer OTHER ==
[2018-01-27] MEDS ORDERED: Albuterol 2.5 MG/3 ML NEB.SOL* (0.083%) INH ONE (14:04)
[2018-01-27] MEDS ORDERED: methylPREDNISolone 125 MG* 2 ML VIAL IV ONE (14:04)
--- OUTSIDE RECORDS SUMMARY | 2018-01-27 14:18 | XMS REPORT ---
:1975 External Reference #:[id number] Author Organization Formerly [facility] Address [address] [place] [address] Phone [phone] Care Team Providers Name Role Phone Claudio Gauthier MD Care Team Information [employer] Assistant Unavailable Payers Type Date Identification Numbers Payment Provider Subscriber Commercial Effective: Policy Number: [id number] Michael Hdz 2015 [facility] PayID: [id number] [place] [address] Problems Description No Information Family History Date Family Member(s) Problem(s) Comments General Cancer, Colon General Cancer, Breast General Diabetes General Heart Disease General Cerebral Aneurysms Mother Cancer, Colon Social History Type Date Description Comments Marital Status Andrew Casey Lives With Male Partner 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 Working [employer] Cigarette Use Heavy tobacco smoker (more than 10 cigarettes/day) ETOH Use Denies alcohol use Smoking Heavy tobacco smoker (more than 10 cigarettes/day) Recreational Drug Use Never Used Drugs Exercise Type/Frequency Does not exercise Allergies, Adverse Reactions, Alerts Date Description Reaction Status Severity Comments 07/28/2015 Augmentin active 10/18/2016 Clavulanic Acid throat closes up active Severe 07/28/2015 Strawberries active 09/20/2016 Dilantin active 01/16/2018 Zucchini Extract active Medications Medication Date Status Form Strength Qnty SIG Indications Ordering Provider Omeprazole 08/05 Active Capsules 40mg 30cap take one DR workman capsule by Disha mouth every , morning Baclofen 07/19 Active Tablets 20mg 120ta 1 tab by bs mouth four Disha times a day , MD as needed Cormax Scalp 07/06 Active Solution 0.05% 100ml 1 apply to Claudio affected [place] area every , MD day when showering Protonix 05/[address] 40mg 30tab take one s tablet by Disha mouth every , MD day Nicotine 03/07 Active Patches 21mg/24HR 28uni 1 patch 24HR ts daily MD Disha Pulse Oxygen 03/07 Active For F17.210 Claudio [facility] COPD status. , Metoprolol 03/01 Active Tablets ER 50mg 30tab Take One Claudio Succinate ER 24HR s Tablet By Disha Mouth Every , MD Day Nicotrol 10/23 Active Inhaler 10mg 336un inhale 1 Z72.0 its cartridge Disha kay MD orally repeatedly like a cigarette 16 times per day as needed for smoking cessation Lansoprazole 09/21 Active Capsules 30mg 30cap [address] s mouth daily MD Disha Advair Diskus 09/20 Active Aerosol 250-50mcg 60uni inhale one /Dose ts puff by Disha mouth twice , MD a day Singulair 09/20 Active Tablets 10mg 90tab take 1 J44.9 s tablet by Disha mouth daily MD in the evening for COPD Ventolin HFA 08/10 Active Aerosol 108(90Bas 36uni Inhale 1 To e) ts 2 Puffs By Disha mcg/Act Mouth Every , 6 Hours as Needed Nebulizer, Home 05/17 Active 1unit 1 use to J44.9 Claudio s inhale Disha kruse MD as directed Albuterol 05/17 Active Nebulizer (2.5mg/3M 75ml 1 treatment J44.9 Claudio /2015 L) 0.083% (1 vial) Disha four times a , day as needed for wheeze Benzonatate 05/05 Active Capsules 100mg 45cap take 1 J01.90 Mally /2016 s capsules by Luiza, mouth three EMERGENCY ROOM PHYSICIAN-C times a day as needed for coughing Magnesium Oxide 03/29 Active Tablets 400mg 30tab Take One Claudio s Tablet [place] Daily. , Vitamin D3 03/29 Active Capsules 2000Unit 30cap Take One Claudio s Capsule By [place] Mouth Every , MD Day Hydrocodone-Acet 03/02 Active Tablets 10-325mg 90tab three times Claudio aminophen s a day as He[place]olynn needed , Proair HFA 07/28 Active Aerosol [...] Tablets DR 81mg 30tab take one Claudio s tablet by [place] mouth every , MD day Levothyroxine 04/15 Active Tablets 137mcg 30tab Take One Claudio Sodium s Tablet By [place] Mouth Every , MD Day Lamictal Active Tablets 200mg 1 tab by Unknown /0000 mouth every night Lamotrigine Active Tablets 200mg take one Unknown /0000 tablet by mouth once a day Doxycycline 07/31 Hx Capsules 100mg 20cap 1 take by Jaiden44.1 Denys Hyclate s mouth Mulugeta - capsule 2 III, 07/31 times per EMERGENCY ROOM PHYSICIAN-C day for 10 days for infection Prednisone 07/31 Hx Tablets 20mg 20tab take 3 tabs J44.1 Denys s by mouth x 3 Muluget[place] - days, then 2 III, 01/16 tabs by EMERGENCY ROOM PHYSICIAN-C mouth x 3 days, then 1 tab by mouth x 3 days then 1/2 tab by mouth x 4 days Doxycycline 07/31 Hx Capsules 100mg 20cap 1 take by J44.1 Denys Monohydrate s mouth Mulu[place] - capsule 2 III, 01/16 times per EMERGENCY ROOM PHYSICIAN-C day for 10 days for infection Dulera 07/13 Hx Aerosol 200-5mcg/ 13uni inhale two Act ts puffs by [place] - mouth twice , 07/13 a day directed Symbicort 07/13 Hx Aerosol 160-4.5mc 12gm inhale 2 g/Act puffs by [place] - mouth 2 , 01/16 times day for chronic obstructive lung disease Prednisone 04/09 Hx Tablets 20mg 20tab take 3 tabs J44.1 Claudio s by mouth x 3 [place] - days, then 2 , 07/06 tabs by mouth x 3 days, then 1 tab by mouth x 3 days then 1/2 tab by mouth x 4 days Doxycycline 04/09 Hx Capsules 100mg 20cap 1 take by J44.1 Claudio cl s mouth [place] - capsule 2 , 07/06 times day for 10 days for infection Tobrex 03/26 Hx Solution 0.3% 5ml Instill 1 H10.89 drop into [place] - affected eye , 01/16 every hours for infection Protonix 02/[address] 40mg 30tab Take One s Tablet By [place] - Mouth Every , Nicotine Step 2 12/01 Hx Patches 14mg/24HR 30uni 1 daily 24HR ts every [place] - morning , 03/07 Baclofen 11/30 Hx Tablets 20mg S29.012A Claudio Guerreroetarmida - , 11/30 Baclofen 11/30 Hx Tablets 10mg 120ta take one to S29.012A bs two tablets Disha - four times a , 07/19 day needed Pantoprazole 09/17 Hx Solution 40mg Claudio Rec Disha - MD 09/17 Dexilant 09/17 Hx Capsules 30mg 30cap Take [address] s capsule by [place] - mouth daily , 09/21 for 4 weeks for gastroesopha geal refluxdiseas e Clindamycin HCL 09/15 Hx Capsules 300mg 30cap take 1 H60.11 Claudio s capsule by [place] - mouth every , 10/23 8 hours for 10 days Protonix 09/[address] 40mg 30tab 1 by mouth Claudio s every day Disha Mauro MD 09/20 Doxycycline 06/07 Hx Tablets 100mg 20tab 1 tab by Christian.9 Claudio Hyclate s mouth twice [place] - a day , 06/23 Chatom 06/07 Hx Tablets 5-325mg 90tab 1 tab by Claudio s mouth three [place] - times a day , 06/07 as needed Tesbinh Ochoa 06/07 Hx Capsules 100mg 60cap take 1 J44.9 Claudio s capsule by [place] - mouth 3 , 10/23 times day as needed for cough Clindamycin HCL 05/17 Hx Capsules 300mg 21cap take 1 H66.91 Claudio s capsule by [place] - mouth every , 06/07 8 hours for 7 days Morphine Sulfate 05/17 Hx Tablets 15mg 60tab 1 tab by Claudio s mouth two [place] - times a day , 06/07 as needed Azithromycin 05/05 Hx Tablets 250mg 6tabs take 2 J01.90 tablets Luiza, - today then 1 EMERGENCY ROOM PHYSICIAN-C 06/07 tablet daily for the next 4 days Zyrtec Allergy 04/14 Hx Tablets 10mg 30tab 1 by mouth Claudio s every day Disha Mauro MD 06/23 Magnesium Oxide 03/29 Hx Capsules 400mg 30cap 1 tab by Claudio -MG Supplement s mouth daily Disha Mauro MD 06/23 Prednisone 03/22 Hx Tablets [...] 120ta Take One S29.012A bs Tablet By [place] - Mouth Four , 11/30 Times A Day /2016 as Needed Cyclobenzaprine 09/02 Hx Tablets 10mg 90tab take 1 M54.5 Claudio HCL s tablet by [place] - mouth 3 , 10/06 times day for muscle spasm with pain Hydrocodone-Acet 09/02 Hx Tablets 5-325mg 30tab 1 tab by M54.5 Claudio aminophen s mouth three [place] - times a day , 10/19 as needed /2015 Ranitidine 150 08/22 Hx Tablets 150mg 60tab 1 tab by Claudio Maximum Strength s mouth twice [place] - a day , 09/15 Azithromycin 07/28 Hx Tablets 250mg 6tabs take 2 J01.90 tablets by [place] - mouth one , 08/22 time take one daily for 4 days Advair HFA 07/28 Hx Aerosol 115-21mcg 24uni inhale one Claudio / ts puff by Heagustinks - mouth twice , 09/20 a day /2016 Flexeril 07/19 Hx Tablets 10mg 60tab 1 tab by M54.5 Claudio s mouth three [place] - times a day , 07/19 Skelaxin 07/19 Hx Tablets 800mg 60tab 1 tab by M54.5 Claudio s mouth three [place] - times a day , 10/06 Hydrocodone-Acet 07/19 Hx Tablets 5-325mg 30tab 1 by mouth M54.5 Claudio aminophen s q4 - 6 hours [place] - as needed , 10/19 Tolnaftate 07/19 Hx Cream 1% 60uni 1 apply to ts affected [place] - area twice a , 03/15 day for weeks Fluoxetine HCL 04/15 Hx Capsules 40mg 30cap 1 by mouth Claudio /2014 s every day Disha Mauro MD 03/22 Magnesium 04/15 Hx Capsules 400mg 30cap 1 tab by Claudio /2014 s mouth daily Disha Mauro MD 03/29 Trazodone HCL 04/15 Hx Tablets 100mg 2 tab by Claudio mouth every Disha - night , 10/06 Cetirizine HCL 04/15 Hx Tablets 10mg 30tab 1 by mouth Claudio s every day Disha Mauro MD 07/19 Amitriptyline 04/15 Hx Tablets 25mg 30tab as needed Claudio HCL s Disha Mauro MD 07/19 Topiramate 04/15 Hx Tablets 100mg 60tab once a day Claudio /2014 jacinta Mauro MD 01/26 Clopidogrel 04/15 Hx Tablets 75mg 30tab 1 by mouth Claudio Bisulfate s every day Disha Mauro MD 07/19 Quetiapine 04/15 Hx Tablets 400mg 30tab Claudio Fumarate s Disha Mauro MD 03/22 Omeprazole 04/15 Hx Capsules 40mg 30cap Take One Claudio DR s Capsule By Guerreroetdercarolynn - Mouth Every MD 09/17 Atenolol 04/15 Hx Tablets 25mg 30tab Take One Claudio s Tablet By [place] - Mouth Every , Nicotine 04/14 Hx Lozenges 2mg 120un 1 Dissolve Z72.0 Claudio Polacrilex its by mouth Disha - lozenge 20 , 10/06 times day for smoking cessation Albuterol 00/00 Hx Unknown Sulfate / - 08/22 Albuterol HFA 00/00 Hx Unknown /0000 - 08/22 Diazepam 00/00 Hx Tablets 5mg Unknown / - 03/15 Oxycodone-Acetam Hx Tablets 5-325mg 60tab 1 by mouth Claudio katerinphen /0000 s every 4 [place] - hours MD sedrick 03/15 severe pain Prednisone 00 Hx Tablets 20mg Take Two Unknown /0000 Tablets By - Mouth Every Dose Due 6 12 17 Prednisone 00 Hx Tablets 10mg Unknown /0000 - 03/07 Immunizations CPT Code Status Date Vaccine Lot # [id number] Given 03/07/2017 Influenza Virus Vaccine, Quadrivalent, 3 Yr > [id number] Quad, Preserv Free 25871 Given 03/15/2016 Influenza Virus Vaccine, Quadrivalent, 3 Yr > [id number] Quad, Preserv Free 48376 Given 04/14/2015 Influenza Virus Vaccine, Quadrivalent, 3 Yr > [id number] Quad, Preserv Free 27961 Given 06/18/2009 Tdap (Adacel) Vital Signs Date Vital Result Comment 01/16/2018 Weight 229.00 lb Weight in kg's 103.874 BP Systolic 115 mmHg BP Diastolic 80 mmHg Heart Rate 108 /min Body Temperature 98.6 F O2 % BldC Oximetry 91 % 12/21/2017 Weight 230.00 lb Weight in kg's [...] Test Date Test Result H/L Range Note Laboratory test finding 01/10/2018 Troponin-I (TnI) 0.00 ng/mL <0.04 Comp Metabolic Panel 01/10/2018 Sodium 140 mmol/L 135-145 Potassium 4.1 mmol/L 3.5-5.0 Chloride 105 mmol/L 101-111 Co2 Carbon Dioxide 27 mmol/L 22-32 Anion Gap 8 mmol/L 2-11 Glucose 100 mg/dL 70-100 Blood Urea Nitrogen 11 mg/dL 6-24 Creatinine 0.87 mg/dL 0.51-0.95 BUN/Creatinine Ratio 12.6 8-20 Calcium 9.5 mg/dL 8.6-10.3 Total Protein 7.2 g/dL 6.4-8.9 Albumin 4.3 g/dL 3.2-5.2 Globulin 2.9 g/dL 2-4 Albumin/Globulin Ratio 1.5 1-3 Total Bilirubin 0.20 mg/dL 0.2-1.0 Alkaline Phosphatase 109 U/L High 34-104 Alt 21 U/L 7-52 Ast 17 U/L 13-39 Egfr Non- 70.7 >60 Egfr 85.6 >60 1 Laboratory test finding 01/10/2018 Troponin-I (TnI) 0.01 ng/mL <0.04 CBC Auto Diff 01/10/2018 White Blood Count 6.0 10^3/uL 3.5-10.8 Red Blood Count 4.88 10^6/uL 4.00-5.40 Hemoglobin 13.6 g/dL 12.0-16.0 Hematocrit 40 % 35-47 Mean Corpuscular Volume 83 fL 80-97 Mean Corpuscular Hemoglobin 28 pg 27-31 Mean Corpuscular HGB Conc 34 g/dL 31-36 Red Cell Distribution Width 15 % 10.5-15 Platelet Count 179 10^3/uL 150-450 Mean Platelet Volume 8.9 um3 7.4-10.4 Abs Neutrophils 4.1 10^3/uL 1.5-7.7 Abs Lymphocytes 1.1 10^3/uL 1.0-4.8 Abs Monocytes 0.7 10^3/uL 0-0.8 Abs Eosinophils 0 10^3/uL 0-0.6 Abs Basophils 0.1 10^3/uL 0-0.2 Laboratory test finding 01/10/2018 Lactic Acid 1.4 mmol/L 0.5-2.0 2 Manual Differential 01/10/2018 Neutrophil % 70 % 38-83 Lymphocytes % 16 % Low 25-47 Monocytes % 11 % High 0-7 Eosinophils % 0 % 0-6 Basophil % 0 % 0-2 Variant Lymph % 3 % 0-6 Abs Neutrophils 4.2 10^3/uL 1.5-7.7 Abs Lymphocytes 1.0 10^3/uL 1.0-4.8 Abs Monocytes 0.7 10^3/uL 0-0.8 Abs Eosinophils 0 10^3/uL 0-0.6 Abs Basophils 0 10^3/uL 0-0.2 RBC Morphology Normal Normal Laboratory test finding 01/10/2018 Pathologist Review (SEE NOTE) 3 Arterial Blood Gas 02/10/2017 PH Arterial 7.39 7.35-7.45 Pco2 Arterial 42 mmHg 35-45 Po2 Arterial 68 mmHg Low 80-100 O2 Saturation Arterial 96.4 % 95-98 Base Excess Arterial 0.3 -2.0-2.0 4 Hco3 Arterial 24.9 mmol/L 19-31 Laboratory test finding 02/10/2017 Lactic Acid 1.6 mmol/L 0.5-2.0 5 Laboratory test finding 01/04/2017 Partial Thrombo Time 28.3 seconds 26.0 -36.3 PTT D Dimer Quantitative < 200 ng/mL Less Than 230 6 Inr/Protime 01/04/2017 Inr 0.92 0.89-1.11 CBC Auto Diff 01/04/2017 White Blood Count [...] 0-2 Nucleated Red Blood Cells % 0.3 Laboratory test finding 01/04/2017 Troponin-I (TnI) 0.00 ng/mL <0.04 B-Type Natriuretic Peptide BNP 30 pg/mL 7 Blood Culture SEE RESULT BELOW 8 Comp Metabolic Panel 01/04/2017 Sodium 135 mmol/L [...] Egfr Non- 77.2 >60 Egfr 99.2 >60 9 Laboratory test finding 11/24/2016 Troponin-I (TnI) 0.01 ng/mL <0.04 Lactic Acid 2.0 mmol/L 0.5-2.0 10 B-Type Natriuretic Peptide BNP 21 pg/mL 11 C Reactive Protein 61.01 mg/L High < 5.00 12 Blood Culture SEE RESULT BELOW 13 Comp Metabolic Panel 11/24/2016 Sodium 133 mmol/L [...] Egfr Non- 68.3 >60 Egfr 87.9 >60 14 CBC Auto Diff 11/24/2016 White Blood Count [...] 0-2 Nucleated Red Blood Cells % 0 Lipid Profile (Trig/Chol/HDL) 10/23/2016 Triglycerides 125 mg/dL 15 Cholesterol 164 mg/dL 16 HDL Cholesterol 31.7 mg/dL 17 LDL Cholesterol 107 mg/dL 18 Laboratory test 10/23/2016 Hemoglobin A1c (Glyco 5.8 % Less than 6.0 19 finding HGB) CBC Auto Diff 10/23/2016 White [...] Body Fluid Cult & SEE RESULT BELOW 20, 21 Gram Stain Afb Profile SEE RESULT BELOW 20, 22 Laboratory test 07/26/2016 Fungal Cult - Other SEE RESULT BELOW 20, 23 finding Sources Laboratory test 07/26/2016 Fungal Cult - Other SEE RESULT BELOW 20, 24 finding Sources Laboratory test 07/26/2016 Mycobacterial Culture See Comment 20, 25 finding Laboratory test 07/15/2016 Inr 0.99 0.89-1.1 [...] Egfr Non- 78.7 >60 Egfr 101.2 >60 26 Laboratory Studies 07/15/2016 Absolute Basophils (auto) 0 [...] Count 5.3 10^3/ul 3.5-10.8 CBC Auto Diff 07/15/2016 White Blood Count [...] Blood Cells % 0 Laboratory test finding 06/23/2016 Free T4 (Free Thyroxine) 0.85 ng/dL 0.61-1.12 27 Comp Metabolic Panel 06/23/2016 Sodium 136 mmol/L [...] Egfr Non- 66.1 >60 Egfr 85.0 >60 28 CBC Auto Diff 06/23/2016 White Blood Count [...] Blood Cells % 0.1 Laboratory test finding 06/23/2016 TSH (Thyroid Stim 6.73 mcIU/mL High 0.34-5.60 29 Horm) CBC Auto Diff 03/15/2016 White Blood [...] Free T4 (Free Thyroxine) 0.72 ng/dL 0.61-1.12 30 T3 Total 1.04 ng/mL 0.87-1.78 31 TSH (Thyroid Stim Horm) 10.86 mcIU/mL High 0.34-5.60 32 Laboratory test finding 11/23/2015 Magnesium 2.3 mg/dL 1.9-2.7 Creatine Kinase 65 U/L 10-223 Troponin I 0.00 ng/mL <0.03 33 TSH (Thyroid Stimulating Horm) 4.07 ?IU/mL 0.34-5.60 [...] Egfr Non- 72.4 >60 Egfr 93.1 >60 34 CBC Auto Diff 11/23/2015 White Blood Count [...] finding 11/23/2015 Urine Culture SEE RESULT BELOW 35 Urinalysis Profile 11/23/2015 Urine Color Yellow Urine Appearance Turbid Urine Specific [place] 1.016 1.010-1.030 Urine pH 7.0 5-9 Urine [...] finding 11/23/2015 Troponin I 0.00 ng/mL <0.03 36, 37 CBC Auto Diff 11/08/2015 White Blood Count [...] Color Yellow Urine Appearance Cloudy Urine Specific [place] 1.010 1.010-1.030 Urine pH 7.0 5-9 Urine [...] finding 11/04/2015 Urine Culture SEE RESULT BELOW 38 Inr/Protime 11/04/2015 Inr 0.88 Low 0.89-1.11 Comp [...] Egfr Non- 75.4 >60 Egfr 97.0 >60 39 Laboratory test finding 11/04/2015 HCG < 0.60 mIU/mL 40 CBC Auto Diff 08/15/2015 White Blood Count [...] finding 08/15/2015 Lactic Acid 0.9 mmol/L 0.5-2.0 41 Inr/Protime 08/15/2015 Inr 1.07 0.89-1.11 Laboratory test finding 08/15/2015 Partial Thrombo Time 35.8 seconds 26.0 -36.3 PTT B-Type Natriuretic Peptide BNP 10 pg/mL 42 Comp Metabolic Panel 08/15/2015 Sodium 135 mmol/L [...] Egfr Non- 79.0 >60 Egfr 101.7 >60 43 Laboratory test finding 08/15/2015 Magnesium 2.1 mg/dL 1.9-2.7 Lipase 25 U/L 11.0-82.0 Creatine Kinase 53 U/L 10-223 C Reactive Protein 17.16 mg/L High < 5.00 44 Troponin I 0.00 ng/mL <0.03 45 CKMB 08/15/2015 CKMB ng/mL 1.7 ng/mL 0.6-6.3 Laboratory test 08/15/2015 TSH (Thyroid Stimulating 4.07 ?IU/mL 0.34- 5.60 finding Horm) Lipid Profile 07/19/2015 Triglycerides 158 mg/dL 46 (Trig/Chol/HDL) Cholesterol 177 mg/dL 47 HDL Cholesterol 33.5 mg/dL 48 LDL Cholesterol 112 mg/dL 49 Laboratory test 07/19/2015 Hemoglobin A1c (Glyco 5.4 % Less than 6.0 50 finding HGB) CBC Auto Diff 07/19/2015 White [...] Egfr Non- 77.9 >60 Egfr 100.2 >60 51 1 Because ethnic data is not always readily [...] 15-29 5 Kidney failure <15 (or dialysis) 2 [facility] Severe Sepsis and Septic Shock Management Bundle Measure requires all lactic acids initially measuring >2.0 mmol/L be repeated. 3 Mild monocytosis favor reactive. Reviewed by Dr. Andrews 4 Reference ranges based on room air. 5 [facility] Severe Sepsis and Septic Shock Management Bundle Measure requires all lactic acids initially measuring >2.0 mmol/L be repeated. 6 Please note: The following may produce a false positive D Dimer test: - Rheumatoid factor greater than 60 IU/ml - Plasma hemoglobin greater than 0.05 gm/dl - Bilirubin greater than 50 mg/dl - Lipids greater than 1000 mg/dl - FDP greater than 20 ug/ml 7 >100 to <200 pg/mL: likely compensated congestive heart failure (CHF) 200 to 400 pg/mL: likely moderate CHF >400 pg/mL: likely moderate to severe CHF 8 SEE RESULT BELOW Name: ALYSIA ADEN : [address]: Jorge Mendoza MD Acct: [id number] Unit: [id number] AGE: 41 Location: ED Re01/03/17 SEX: F Status: DEP ER SPEC: [id number] YOANA: 01/04/[address]: Jorge Mendoza MD REQ: [id number] RECD: 01/04/17 STATUS: AALIYAH JEWELL DR: Claudio Gauthier MD _ SOURCE: BLOOD,VENO SPDESC: ORDERED: Blood Cult COMMENTS: Patient is On Antibiotics? NO Procedure Result Reported Site Aerobic Culture Bottle Final 07/25/17- 150 ML No Growth Day 5 Anaerobic Culture Bottle Final 01/09/17150 ML No Growth Day 5 * ML - MAIN LAB ([facility]) . END OF REPORT * ML=Testing performed at Main Lab DEPARTMENT OF PATHOLOGY, [address] [place] [address] John Andrews M.D. Director [facility] # [id number] 9 Because ethnic data is not always readily [...] 15-29 5 Kidney failure <15 (or dialysis) 10 [facility] Severe Sepsis and Septic Shock Management Bundle Measure requires all lactic acids initially measuring >2.0 mmol/L be repeated. 11 >100 to <200 pg/mL: likely compensated congestive heart failure (CHF) 200 to 400 pg/mL: likely moderate CHF >400 pg/mL: likely moderate to severe CHF 12 Acute inflammation: >10.00 13 SEE RESULT BELOW Name: ALYSIA ADEN : [address]: Nahun Ferguson MD Acct: [id number] Unit: [id number] AGE: 41 Location: [place] [id number] Re11/25/16 Dis: 11/26/16 SEX: F Status: DIS IN SPEC: [id number] YOANA: 11/24/16 [facility] [address]: Flaquito Coto DO REQ: [id number] RECD: 11/24/16 STATUS: COMP FANTA DR: Claudio Gauthier MD _ SOURCE: BLOOD,VENO SPDESC: ORDERED: Blood Cult Procedure Result Reported Site Aerobic Culture Bottle Final 06/14/17- 2208 ML No Growth Day 5 Anaerobic Culture Bottle Final 11/29/16- 2208 ML No Growth Day 5 * ML - MAIN LAB ([facility]) . END OF REPORT * ML=Testing performed at Main Lab DEPARTMENT OF PATHOLOGY, [address] [place] [address] John Andrews M.D. Director [facility] # [id number] 14 Because ethnic data is not always readily [...] 15-29 5 Kidney failure <15 (or dialysis) 15 Desirable <150 Borderline high 150-199 High 200-499 Very High >500 16 Desirable <200 Borderline high 200-239 High >239 17 Low <40 Desirable: 40-60 High: >60 18 Desirable: <100 mg/dL Near Optimal: 100-129 mg/dL Borderline High: 130-159 mg/dL High: 160-189 mg/dL Very High: >189 mg/dL 19 Therapeutic target for the treatment of diabetes Mellitus patients is <7% HBA1C, and in selective patients <6.0%.Please refer to [place] [employer] Diabetic care guidelines for further information. 20 LEFT UPPER LOBE LAVAGE: LUNG NODULES, LEFT UPPER LOBE 21 SEE RESULT BELOW Name: ALYSIA ADEN : [address]: Janette Sebastian MD Acct: [id number] Unit: [id number] AGE: 40 Location: [place] Re07/26/16 SEX: F Status: DEP SDC SPEC: [id number] YOANA: 07/26/16-1252 [facility] [address]: Janette Sebastian MD REQ: [id number] RECD: 07/26/16-1314 STATUS: AALIYAH JEWELL DR: Claudio Gauthier MD _ SOURCE: BODY FLUID SPDESC:BRONCH WAS ORDERED: ISAURA Da Silva/REN COMMENTS: LEFT UPPER LOBE LAVAGE: LUNG NODULES, LEFT UPPER LOBE Procedure Result Reported Site Body Fluid Gram Stain Final 07/26/16- 1352 ML 4+ Neutrophils 1+ Epithelial Cells 1+ Gram Positive Cocci Preparation By Cytospin Smear Body Fluid Culture Final 07/30/16- 0757 ML Organism 1 NORMAL ALEXANDER Quantity 1+ * ML - MAIN LAB ([facility]) . END OF REPORT * ML=Testing performed at Main Lab DEPARTMENT OF PATHOLOGY, [address] [place] [address] John Andrews M.D. Director [facility] # [id number] 22 SEE RESULT BELOW Name: ALYSIA ADEN : [address]: Janette Sebastian MD Acct: [id number] Unit: [id number] AGE: 40 Location: [place] Re07/26/16 SEX: F Status: [place] [facility] SPEC: [id number] YOANA: 07/26/16-1252 [facility] [address]: Janette Sebastian MD REQ: [id number] RECD: 07/26/16 STATUS: RES OTHR DR: Claudio [...] for diagnosis. * ML - MAIN LAB ([facility]) . END OF REPORT * ML=Testing performed at Main Lab DEPARTMENT OF PATHOLOGY, [address] [place] [id number] John Andrews M.D. Director [facility] # [id number] 23 SEE RESULT BELOW Name: ALYSIA ADEN : [address]: Janette Sebastian MD Acct: [id number] Unit: [id number] AGE: 40 Location: OR Re07/26/16 SEX: F Status: DEP SDC SPEC: [id number] YOANA: 07/26/16-1252 [facility] [address]: Janette Sebastian MD REQ: [id number] RECD: 07/26/16-1315 STATUS: RES OTHR DR: Claudio Gauthier MD [...] performed at Main Lab DEPARTMENT OF PATHOLOGY, [address] [place] [address] John Andrews M.D. Director [facility] # [id number] 24 SEE RESULT BELOW Name: ALYSIA ADEN : [address]: Janette Sebastian MD Acct: [id number] Unit: [id number] AGE: 40 Location: OR Re07/26/16 SEX: F Status: DEP SDC SPEC: [id number] YOANA: 07/26/16-[address]: Janette Sebastian MD REQ: [id number] RECD: 07/26/16 STATUS: COMP OTHR DR: Claudio Gauthier MD _ SOURCE: [...] for diagnosis. * ML - MAIN LAB ([facility]) . END OF REPORT * ML=Testing performed at Main Lab DEPARTMENT OF PATHOLOGY, [address] [place] [address] John Andrews M.D. Director [facility] # [id number] 25 SOURCE: BRONCHOALVEOLAR LAVAGE, LEFT UPPER LOBE LAVAGE MYCOBACTERIAL CULTURE FINAL No growth after 60 days of incubation. Test Performed by: [address] [address] 26 Because ethnic data is not always readily [...] 15-29 5 Kidney failure <15 (or dialysis) 27 [id number] 28 Because ethnic data is not always readily [...] 15-29 5 Kidney failure <15 (or dialysis) 29 [id number] Reference Range and Interpretation: TnI (ng/mL) Interpretation Less Than 0.03 ng/mL Not supportive of diagnosis of [place] 0.03 - 0.50 ng/mL Indeterminate: suggest serial studies if clinically indicated. Greater than 0.5 ng/mL Consistent with diagnosis of [place] 34 Because ethnic data is not always readily [...] 15-29 5 Kidney failure <15 (or dialysis) 35 SEE RESULT BELOW Name: ALYSIA ADEN : [address]: Manuela Lopez MD Acct: [id number] Unit: [id number] AGE: 40 Location: ED Re11/23/15 SEX: F Status: DEP ER SPEC: [id number] YOANA: 11/23/[address]: Manuela Lopez MD REQ: [id number] RECD: 11/23/15 STATUS: AALIYAH JEWELL DR: Claudio Gauthier MD _ SOURCE: URINE SPDESC: ORDERED: Urine Culture Procedure Result Reported Site Urine Culture Final 11/25/15- 806 ML No growth of clinically significant organisms * ML - MAIN LAB ([facility]) . END OF REPORT * ML=Testing performed at Main Lab DEPARTMENT OF PATHOLOGY, [address] [place] [address] John Andrews M.D. Director [facility] # [id number] Comment: 23:30 please 37 Reference Range and Interpretation: TnI (ng/mL) Interpretation Less Than 0.03 ng/mL Not supportive of diagnosis of OH 0.03 - 0.50 ng/mL Indeterminate: suggest serial studies if clinically indicated. Greater than 0.5 ng/mL Consistent with diagnosis of OH 38 SEE RESULT BELOW Name: ALYSIA ADEN : [address]: Claudio Gauthier MD Acct: [id number] Unit: [id number] AGE: 40 Location: [facility] Re11/04/15 SEX: F Status: REG REF SPEC: [id number] YOANA: 11/04/15-1[address] [facility] DR: Claudio Gauthier MD REQ: [id number] RECD: 11/04/15-1252 STATUS: COMP _ SOURCE: URINE SPDESC: ORDERED: Urine Culture Procedure Result Reported Site Urine Culture Final 11/06/15- 09 ML Organism [address] Count 10-25,000 (Moderate) CFU/ML Organism [address] Count 10-25,000 (Moderate) CFU/ML 1. KLEBSIELLA PNEUMONIAE [...] antibiotic reporting. * ML - MAIN LAB ([facility]) . END OF REPORT * ML=Testing performed at Main Lab DEPARTMENT OF PATHOLOGY, [address] [place] [address] John Andrews M.D. Director [facility] # [id number] 39 Because ethnic data is not always readily [...] 15-29 5 Kidney failure <15 (or dialysis) 40 <5.0 Negative 5.0 - 25.0 Indeterminate (Repeat testing recommended after 72 hours) >25.0 Positive Perimenopausal women can display HCG levels of up to 20 mIU/mL 41 [facility] Severe Sepsis and Septic Shock Management Bundle Measure requires all lactic acids initially measuring >2.0mmol/L be repeated. 42 >100 to <200 pg/mL: likely compensated congestive heart failure (CHF) 200 to 400 pg/mL: likely moderate CHF >400 pg/mL: likely moderate to severe CHF 43 Because ethnic data is not always readily [...] 15-29 5 Kidney failure <15 (or dialysis) 44 Acute inflammation: >10.00 45 Reference Range and Interpretation: TnI (ng/mL) Interpretation Less Than 0.03 ng/mL Not supportive of diagnosis of OH 0.03 - 0.50 ng/mL Indeterminate: suggest serial studies if clinically indicated. Greater than 0.5 ng/mL Consistent with diagnosis of OH 46 Desirable <150 Borderline high 150-199 High 200-499 Very High >500 47 Desirable <200 Borderline high 200-239 High >239 48 Low <40 Desirable: 40-60 High: >60 49 Desirable: <100 mg/dL Near Optimal: 100-129 mg/dL Borderline High: 130-159 mg/dL High: 160-189 mg/dL Very High: >189 mg/dL 50 Therapeutic target for the treatment of diabetes Mellitus patients is <7% HBA1C, and in selective patients <6.0%.Please refer to [place] [employer] Diabetic care guidelines for further information. 51 Because ethnic data is not always readily [...] dialysis) Procedures Date CPT Code Description Status 01/16/2018 12876 Nebulizer Treatment Completed 07/31/2017 99342 Nebulizer Treatment Completed 09/20/2016 74592 Spirometry Completed 06/23/2016 67542 EKG, at Least 12 Leads w/Interpretation and Report Completed 11/04/2015 96112 EKG, at Least 12 Leads w/Interpretation and Report Completed Encounters Type Date Location Provider CPT E/M Dx Office Visit 12/21/2017 8:45a [place] [address] M54.5 Office Visit 12/01/2017 9:45a Main Office EVERARDO Caldera-C 12716 S93.601A Office Visit 07/31/2017 10:30a Main Office EVERARDO Vance III-C 11183 J44.1 Office Visit 07/06/2017 8:45a [place] [address] J44.1 L40.0 Office Visit 06/07/2017 11:00a [place] [address] L40.0 I88.1 Office Visit 04/09/2017 2:45p [place] [address] J44.1 Office Visit 03/26/2017 1:45p [place] [address] H10.89 Office Visit 03/07/2017 10:15a [place] [address] F17.210 R51 J44.9 M54.5 Z23 Office Visit 12/25/2016 8:45a [place] [address] F17.210 M54.5 R21 Office Visit 11/30/2016 11:00a [place] [address] J18.9 F17.210 S00.451A M54.5 Office Visit 10/23/2016 8:00a [place] [address] Z00.8 J44.9 E03.9 M54.5 E66.3 Z72.0 I60.9 Office Visit 09/20/2016 10:30a [place] [address] J44.9 Office Visit 09/15/2016 3:15p [place] [address] H60.11 Office Visit 08/24/2016 9:45a [place] [address] E03.9 J44.9 M54.5 Office Visit 06/23/2016 1:15p [place] [address] R91.8 J44.9 M54.5 R07.89 Office Visit 06/07/2016 3:30p [place] [address] J44.9 M54.5 H66.91 Office Visit 05/17/2016 4:15p [place] [address] H66.91 J44.9 M54.5 Office Visit 05/05/2016 4:30p Main Office Mally Jarrett EMERGENCY ROOM PHYSICIAN- 63043 J01.90 Office Visit 03/22/2016 8:45a [place] [address] T43.595A Office Visit 03/15/2016 8:45a [place] [address] F30.9 E03.9 E66.3 Z23 Office Visit 02/23/2016 9:30a [place] [address] M54.5 H91.91 Office Visit 01/27/2016 2:45p [place] [address] M54.5 Office Visit 11/29/2015 9:30a [place] [address] R00.2 M54.5 Office Visit 11/22/2015 1:00p [place] [address] M54.5 Office Visit 11/04/2015 10:15a [place] [address] I67.1 Office Visit 10/07/2015 9:45a [place] [address] S29.012A Office Visit 09/24/2015 9:45a [place] [address] S29.012A Office Visit 09/17/2015 9:15a [place] [address] M54.5 F25.0 Office Visit 09/03/2015 9:30a [place] [address] M54.5 Office Visit 08/23/2015 9:00a [place] [address] S29.001A J18.9 K21.9 Office Visit 07/28/2015 10:00a [place] [address] J01.90 Office Visit 07/19/2015 8:00a [place] [address] Z00.8 I10 Z72.0 M54.5 Office Visit 05/17/2015 9:00a [place] [address] F17.213 M54.5 I60.9 Office Visit 04/14/2015 9:15a [place] [address] Z72.0 M54.5 I10 I60.9 Z23 Plan of Care 01/16/2018 - Claudio Gauthier, MDR07.89 Other chest painComments: musculoskeletal chest pain. Negative cardiac workup. [facility].1 Chronic obstructive pulmonary disease w (acute) exacerbationComments:I told her that she really, really, really needs to quit smoking. Had trouble getting her pulse oxygen over 90 today. She does not seem to be an exacerbation state.
--- NOTE | 2018-01-27 14:42 | RAD ---
INDICATION: Chest pain. COMPARISON: Comparison is made with prior studies from June 08, 2016 and February 10, 2017. TECHNIQUE: Dual-energy PA and lateral views of the chest were obtained. FINDINGS: The heart is within normal limits in size. Mediastinal and hilar contours appear within normal limits. There is diffuse prominence of the interstitial markings which appears to have progressed slightly from the prior study. No significant focal infiltrate is seen. No pleural effusion or pneumothorax is seen. IMPRESSION: FINDINGS MOST CONSISTENT WITH CHRONIC INTERSTITIAL LUNG DISEASE DEMONSTRATING SLIGHT PROGRESSION.
--- NOTE | 2018-01-27 14:48 | ED ---
HPI Chest Pain - HPI Summary HPI Summary: This is scribe Dayo Ashley documenting for attending North Loya MD. A 42 y/o female presents to ED c/o chest pain and SOB reaching 5/10 in severity. Currently, the patient stated that she is hurting under her breast and shoulder. In the ED room, the patient has a pulse of 91 BPM, O2 saturation of 92% and blood pressure of 115/68. As per triage, "Pt here with cp since 10am this morning. Pt states oxygen level is typically low. hx copd. Pt c/o sob. SAturations at triage 93%". According to the patient, she started experiencing by sudden onset chest pain/tightness and SOB around 1200. Patient denies any dizziness, cough, nausea or vomiting. This is the second time she has experienced these symptoms within the last 10 days. Palpation reproduces the pain. Sitting up in the ED room is a struggle for patient due to pain. 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 Patient noted that she cut down on smoking from 1.5 packs per day to about 6 cigarettes per day as she is scared for her health. She further noted that she didn't smoke for the past 3 hours. I, Dr. Loya personally performed the services described in this documentation as scribed in my presence and it is both accurate and complete. - History of Current Complaint Chief Complaint: EDChestPainROMI Time Seen by Provider: 01/27/18 14:02 Hx Obtained From: Patient Hx Last Menstrual Period: 5 yrs ago Onset/Duration: Started Hours Ago, Still Present Timing: Constant Initial Severity: Moderate Current Severity: Moderate Pain Intensity: 5 Pain Scale Used: 0-10 Numeric Chest Pain Location: Left Anterior Chest Pain Radiates: Yes Chest Pain Radiates To:: Shoulder - Left Character: Tightness Aggravating Factor(s): Movement Alleviating Factor(s): Nothing Associated Signs and Symptoms: Positive: Chest Pain, Shortness of Breath. Negative: Dizziness, Nausea, Cough, Vomiting - Additional Pertinent History Primary Care Physician: [id number] - Allergy/Home Medications Allergies/Adverse Reactions: Allergies Allergy/AdvReac Type Severity Reaction Status Date / Time amoxicillin Allergy Severe Anaphylatic Verified 01/27/18 13:39 Shock clavulanic acid Allergy Severe Anaphylatic Verified 01/27/18 13:39 [From Augmentin] Shock strawberry Allergy Severe Swelling Verified 01/27/18 13:39 Of Face,Lips,& Throat phenytoin [From Dilantin] Allergy Shortness Verified 01/27/18 13:39 of Breath sweet potatoe pie Allergy Severe Swelling Uncoded 01/27/18 13:39 Of Face,Lips,& Throat PMH/Surg Hx/FS Hx/Imm Hx Endocrine/Hematology History: Reports: Hx Anticoagulant Therapy - ASA daily, Hx Thyroid Disease Denies: Hx Diabetes Cardiovascular History: Reports: Hx Aneurysm, Hx Angina, Hx Coronary Artery Disease, Hx Deep Vein Thrombosis - states in right arm 2017, Hx Hypercholesterolemia, Hx Hypertension, Other Cardiovascular Problems/Disorders - DVT, MURMUR, H PYLORI Denies: Hx Angioplasty, Hx Atrial Fibrillation, Hx Congestive Heart Failure, Hx Myocardial Infarction, Hx Pacemaker/ICD, Hx Valvular Heart Disease Respiratory History: Reports: Hx Asthma - states "not so much.", Hx Chronic Obstructive Pulmonary Disease (COPD) - YES, Hx Seasonal Allergies, Hx Sleep Apnea - does not use machine, Other Respiratory Problems/Disorders GI History: Reports: Hx Gastroesophageal Reflux Disease Denies: Other GI Disorders History: Reports: Hx Kidney Stones - states she thinks she has kidney stones Denies: Hx Renal Disease Comment Only: Other Problems/Disorders - states she thinks she has kidney stones Musculoskeletal History: Reports: Hx Back Problems - slipped disks Sensory History: Reports: Hx Contacts or Glasses Denies: Hx Cataracts, Hx Hearing Aid Opthamlomology History: Reports: Hx Contacts or Glasses Denies: Hx Cataracts Neurological History: Reports: Hx Headaches, Hx Migraine, Hx Transient Ischemic Attacks (TIA) - Unconfirmed by patient, Other Neuro Impairments/Disorders - Cerebral Anuerysm, Bi-Polar Denies: Hx Dementia, Hx Seizures Psychiatric History: Reports: Hx Anxiety, Hx Depression, Hx Panic Disorder - SEVERE ANXIETY, Hx Bipolar Disorder Denies: Hx Substance Abuse - Surgical History Surgery Procedure, Year, and Place: C [id number] REMOVED-TUBAL LIGATION-APPENDIX 08/15/14. BRAIN ANEURYSM-STENTS/COIL [facility] [place] 06/01/16 -1.5 ONLY. BRONCHOSCOPY WITH TRANSBRONCHIAL BIOPSY 07/26/16 Hx Anesthesia Reactions: Yes - takes a little bit longer for patient to wake up - Immunization History Date of Tetanus Vaccine: 2013 Date of Influenza Vaccine: 2013 Infectious Disease History: No Infectious Disease History: Denies: Hx Hepatitis, Hx Human Immunodeficiency Virus (HIV), Traveled Outside the [place] in Last 30 Days - Family History Known Family History: Positive: Cardiac Disease Family History: Positive fhx of CAD - Social History Alcohol Use: None Hx Substance Use: No Substance Use Type: Reports: None Hx Tobacco Use: Yes Smoking Status (MU): Heavy Every Day Tobacco Smoker Type: Cigarettes Amount Used/How Often: 8 cigarettes a day recently---but usually 2ppd for 30 years Length of Time of Smoking/Using Tobacco: 20+ years Have You Smoked in the Last Year: Yes Review of Systems Negative: Fever Positive: Chest Pain Positive: Shortness Of Breath. Negative: Cough Negative: Vomiting, Nausea Neurological: Other - NEGATIVE: Dizziness. All Other Systems Reviewed And Are Negative: Yes Physical Exam - Summary Physical Exam Summary: VITAL SIGNS: Reviewed. GENERAL: Patient is a well-developed and nourished female who is lying comfortable in the stretcher. Patient is not in any acute respiratory distress. HEAD AND FACE: No signs of trauma. No ecchymosis, hematomas or skull depressions. No sinus tenderness. EYES: PERRLA, EOMI x 2, No injected conjunctiva, no nystagmus. EARS: Hearing grossly intact. Ear canals and tympanic membranes are within normal limits. MOUTH: Oropharynx within normal limits. NECK: Supple, trachea is midline, no adenopathy, no JVD, no carotid bruit, no c- spine tenderness, neck with full ROM. CHEST: Symmetric, reproducible chest pain on left breast/chest and shoulder. LUNGS: Clear to auscultation bilaterally. Slight wheezing in apex of nose. CVS: Regular rate and rhythm, S1 and S2 present, no murmurs or gallops appreciated. ABDOMEN: Soft, non-tender. No signs of distention. No rebound no guarding, and no masses palpated. Bowel sounds are normal. EXTREMITIES: FROM in all major joints, no edema, no cyanosis or clubbing. NEURO: Alert and oriented x 3. No acute neurological deficits. Speech is normal and follows commands. SKIN: Dry and warm Triage Information Reviewed: Yes Vital Signs On Initial Exam: Initial Vitals Temp Pulse Resp BP Pulse Ox 97 F 92 16 142/95 95 01/27/18 13:39 01/27/18 13:39 01/27/18 13:39 01/27/18 13:39 01/27/18 13:39 Vital Signs Reviewed: Yes Diagnostics - Vital Signs Vital Signs Temp Pulse Resp BP Pulse Ox 01/27/18 14:29 78 18 98 01/27/18 14:01 90 17 93 01/27/18 13:59 84 15 115/68 92 01/27/18 13:39 97 F 92 16 142/95 95 - Laboratory Result Diagrams: 01/27/18 14:45 01/27/18 14:45 Lab Statement: Any lab studies that have been ordered have been reviewed, and results considered in the medical decision making process. - Radiology CXR Radiology Interpretation Completed By: Radiologist - FINDINGS MOST CONSISTENT WITH CHRONIC INTERSTITIAL LUNG DISEASE DEMONSTRATING SLIGHT PROGRESSION. ED PHYSICIAN REVIEWED THIS RADIOLOGY REPORT. - EKG 1346 Cardiac Rate: NL - 86 BPM EKG Rhythm: Sinus Rhythm EKG Interpretation: No ST elevation, normal axis. Re-Evaluation - Re-Evaluation Second Eval Re-Evaluation Time: 16:04 Change: Improved Comment: Patient is feeling much better. Patient has no chest pain or SOB. Chest Pain Course/Dx - Course Course Of Treatment: The patient was found to have increased BP in [facility] ED. The patient will follow up with PCP for better control of BP. Assessment/Plan: 15: This patient is a 42-year-old female who presents to the emergency department complaining of shortness of breath and chest pain. The patient reports that she has been diagnosed with COPD and now she is having the COPD exacerbations. Test results are without any significant abnormality except 4 CRP of 25.7. EKG shows no ST elevations. Chest x-ray impression: Findings most consistent with chronic interstitial lung disease demonstrating Slight progression. The patient continues to smoke. In the ED course the patient was placed in a fingerprint expert, IV access was obtained and the patient was given Solu-Medrol and albuterol for the COPD exacerbation. After these medications were given the symptoms resolved. At this point the patient continues to be asymptomatic and she reports that she is feeling better. Therefore she requested to be discharged home and she will follow-up with her primary care physician. Patient did not want to wait for the second troponin. However I believe that the symptoms are secondary to her COPD exacerbation. I discussed all the findings and test results with the patient. Patient was instructed to return to the emergency room immediately if any of the symptoms return or worsens. Plan of care was discussed with the patient and she understands and agrees. All questions were answered to patient satisfaction. There were no further complaints or concerns. Lung exam before discharge: CTA B /L. Good air exchange. No wheezing or crackles heard. CVS: S1 and S2 present. No murmurs appreciated. Patient is alert and oriented x 3. Patient is hemodynamically stable. Patient will be discharged home with follow up PCP in the next 2-3 days - Chest Pain Differential Diagnosis/HQI/PQRI: Acute PA, ACS, CHF, Chest Wall, GI Disease, Lower Respiratory Infection, Other: - COPD, emphysema. - Diagnoses Provider Diagnoses: COPD exacerbation, Chest pain Discharge - Sign-Out/Discharge Documenting (check all that apply): Patient Departure - DISCHARGE - Discharge Plan Condition: Stable Disposition: HOME Patient Education Materials: Chest Pain (ED), COPD (Chronic Obstructive Pulmonary Disease) (ED) Referrals: Claudio Gauthier MD [Primary Care Provider] - 1 Week Additional Instructions: FOLLOW UP WITH YOUR PRIMARY CARE PROVIDER WITHIN ONE WEEK FOR HIGH BLOOD PRESSURE NOTED TODAY. RETURN TO ED FOR ANY WORSENING OR NEW SYMPTOMS. Attestations Scribe Attestation: This is tere Ashley documenting for attending North Loya MD. User Type: Provider with Scribe Provider Attestation: The documentation recorded by the scribe accurately reflects the service I personally performed and the decisions made by me.
[2018-01-27 14:57] LABS: ABS Basophils 0 10^3/ul (0-0.2); ABS Eosinophils 0 10^3/ul (0-0.6); ABS Lymphocytes 1.3 10^3/ul (1.0-4.8); ABS Monocytes 0.6 10^3/ul (0-0.8); ABS Neutrophils 3.1 10^3/ul (1.5-7.7); ABS Nucleated RBC 0 10^3/ul; Eosinophil % 0.5 % (0-6); Hematocrit 42 % (35-47); Hemoglobin 13.6 g/dl (12.0-16.0); Lymphocyte % 26.3 % (25-47); Mean Corpuscular HGB Conc 33 g/dl (31-36); Mean Corpuscular Hemoglobin 28 pg (27-31); Mean Corpuscular Volume 84 fL (80-97); Mean Platelet Volume 9.2 um3 (7.4-10.4); Nucleated Red Blood Cells % 0.1; Platelet Count 152 10^3/ul (150-450); Red Blood Count 4.96 10^6/ul (4.00-5.40); Red Cell Distribution Width 16 % (10.5-15); White Blood Count 5.1 10^3/ul (3.5-10.8)
[2018-01-27 15:01] LABS: INR 0.93 (0.77-1.02)
[2018-01-27 15:12] LABS: EGFR Non-African American 68.9 (>60)
[2018-01-27 16:13] VITALS: BP 133/79
== END 2018-01-27 16:12 | disposition home or self-care (01) ==
LOC: ED 13:36
DX: J44.1 Chronic obstructive pulmonary disease with (acute) exacerbation (principal); R07.9 Chest pain, unspecified; F17.210 Nicotine dependence, cigarettes, uncomplicated; Z86.718 Personal history of other venous thrombosis and embolism; Z86.73 Personal history of transient ischemic attack (TIA), and cerebral infarction without residual deficits; Z79.82 Long term (current) use of aspirin; Z88.3 Allergy status to other anti-infective agents; Z88.8 Allergy status to other drugs, medicaments and biological substances
CPT/HCPCS: 36415; 71046; 80053; 82550; 83605; 83880; 84484; 85025; 85610; 85730; 86140; 93005; 96374; 99283; J2930

== ENCOUNTER 2018-04-01 12:31 | Emergency (ER) | payer OTHER ==
--- OUTSIDE RECORDS SUMMARY | 2018-04-01 12:37 | XMS REPORT | Continuity of Care Document ---
:1975 External Reference #:[id number] Author Name Claudio Gauthier MD Address [address] [place] [address] Care Team Providers Name Role Phone Claudio Gauthier MD Care Team Information Deck Cadet Unavailable Payers Type Date Identification Numbers Payment Provider Subscriber Effective: Policy Number: [id number] Michael Aden 2015 [facility] PayID: [id number] [place] [address] Advance Directives Description No Information Available Problems Description No Information Family History Date Family Member(s) Problem(s) Comments General Cancer, Colon General Cancer, Breast General Diabetes General Heart Disease General Cerebral Aneurysms Mother Cancer, Colon Social History Type Date Description Comments Sex Unknown Marital Status Andrew Casey Lives With Male Partner 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 Working [employer] Tobacco Use Start: Unknown Heavy tobacco smoker (more than 10 cigarettes/day) Smoking Status Reviewed: 03/23/18 Heavy tobacco smoker (more than 10 cigarettes/day) ETOH Use Denies alcohol use Tobacco Use Start: Unknown Heavy tobacco smoker 1 ppd from 2 ppd as of (more than 10 03/2018 cigarettes/day) Recreational Drug Use Never Used Drugs Exercise Type/Frequency Does not exercise Allergies, Adverse Reactions, Alerts Date Description Reaction Status Severity Comments 07/28/2015 Augmentin Active 10/18/2016 Clavulanic Acid throat closes up Active Severe 07/28/2015 Strawberries Active 09/20/2016 Dilantin Active 01/16/2018 Zucchini Extract Active Medications Medication Date Status Form Strength Qnty SIG Indications Ordering Provider Prednisone 03/23 Active Tablets 20mg 20tab take 3 tabs J44.1 s by mouth x 3 P. days, then 2 Blegen, tabs by M.D. mouth x 3 days, then 1 tab by mouth x 3 days then 1/2 tab by mouth x 4 days Doxycycline 03/23 Active Tablets 100mg 20tab 1 by mouth Perla Monohydrate s twice a day P. x 10 Days Blegen, For copd M.D. exacerbation Spiriva Respimat 03/23 Active Aerosol 2.5mcg/Ac 4gm 2 t inhalations P. once per Blegen, every day M.D. for copd Omeprazole 08/05 Active Capsules 40mg 30cap take one Claudio s capsule by [place] mouth every , morning Baclofen 07/19 Active Tablets 20mg 120ta 1 tab by bs mouth four [place] times a day , as needed Cormax Scalp 07/06 Active Solution 0.05% 100ml 1 apply to Claudio affected [place] area every , MD day when showering Protonix 05/[address] 40mg 30tab take one s tablet by [place] mouth every , MD day Pulse Oxygen 03/07 Active For F17.210 [facility] MD Metoprolol 03/01 Active Tablets ER 50mg 30tab Take One Claudio Succinate ER 24HR s Tablet By [place] Mouth Every , MD Day Advair Diskus 09/20 Active Aerosol 250-50mcg 60uni inhale one /Dose ts puff by [place] mouth twice , MD a day Singulair 09/20 Active Tablets 10mg 90tab take 1 J44.9 s tablet by P. mouth daily Blegen, in the M.D. evening for copd Ventolin HFA 08/10 Active Aerosol 108(90Bas 36uni Inhale 1 To e) ts 2 Puffs By Disha mcg/Act Mouth Every , 6 Hours as Needed Nebulizer, Home 05/17 Active 1unit 1 use to J44.9 s inhale Disha kruse MD as directed Albuterol 05/17 Active Nebulizer (2.5mg/3M 75ml 1 treatment J44.9 Perla Sulfate L) 0.083% (1 vial) P. four times a Blegen, day as M.D. needed for wheeze Vitamin D3 03/29 Active Capsules 2000Unit 30cap Take One Claudio s Capsule By [place] Mouth Every , Day Hydrocodone-Acet 03/02 Active Tablets 10-325mg 90tab three times Claudio aminophen s a day as Heetarmida needed , Xanax 07/19 Active Tablets 1mg 1 tab by Claudio mouth three [place] times a day , Risperidone 04/15 Active Tablets 3mg 1 tab by Claudio /2014 mouth twice [place] a day , Aspirin 04/[address] 81mg 30tab take one Claudio /2014 s tablet by [place] mouth every , day Levothyroxine 04/15 Active Tablets 137mcg 30tab Take One Claudio Sodium s Tablet By [place] Mouth Every , Day Lamictal Active Tablets 200mg 1 tab by Unknown /0000 mouth every night Lamotrigine Active Tablets 200mg take one Unknown /0000 tablet by mouth once a day Doxycycline 07/31 Hx Capsules 100mg 20cap 1 take by Jaiden44.1 Denys Hyclate s mouth [place] - capsule 2 III, 07/31 times per [employer]-C day for 10 days for infection Prednisone 07/31 Hx Tablets 20mg 20tab take 3 tabs J44.1 Denys s by mouth x 3 [place] - days, then 2 III, 01/16 tabs by [employer] mouth x 3 days, then 1 tab by mouth x 3 days then 1/2 tab by mouth x 4 days Doxycycline 07/31 Hx Capsules 100mg 20cap 1 take by J44.1 Denys Monohydrate /2017 s mouth [place] - capsule 2 III, 01/16 times per [employer]C day for 10 days for infection Dulera 07/13 Hx Aerosol 200-5mcg/ 13uni inhale two Claudio Act ts puffs by [place] - mouth twice , 07/13 a day as directed Symbicort 07/13 Hx Aerosol 160-4.5mc 12gm inhale 2 g/Act puffs by Hedelilah - mouth 2 , 01/16 times per day for chronic obstructive lung disease Prednisone 04/09 Hx Tablets 20mg 20tab take 3 tabs J44.1 s by mouth x 3 [place] - days, then 2 , 07/06 tabs by mouth x 3 days, then 1 tab by mouth x 3 days then 1/2 tab by mouth x 4 days Doxycycline 04/09 Hx Capsules 100mg 20cap 1 take by J44.1 Claudio s mouth Disha - capsule 2 , 07/06 times day for 10 days for infection Tobrex 03/26 Hx Solution 0.3% 5ml Instill 1 H10.89 drop into Disha - affected eye , 01/16 every hours for infection Nicotine 03/07 Hx Patches 21mg/24HR 28uni 1 patch 24HR ts daily Disha - , 03/27 Protonix 02/[address] 40mg 30tab Take One s Tablet By Disha - Mouth Every , Nicotine Step 2 12/01 Hx Patches 14mg/24HR 30uni 1 daily Claudio 24HR ts every Disha - morning , 03/07 Baclofen 11/30 Hx Tablets 20mg S29.012A Heetarmida - , 11/30 Baclofen 11/30 Hx Tablets 10mg 120ta take one to S29.012A bs two tablets Disha - four times a , 07/19 day needed Nicotrol 10/23 Hx Inhaler 10mg 336un inhale 1 Z72.0 its cartridge iDsha Mauro inhaled , 03/27 repeatedly like a cigarette 16 times per day as needed for smoking cessation Lansoprazole 09/21 Hx Capsules 30mg 30cap [address] workman mouth daily Disha Mauro MD 03/27 Pantoprazole 09/17 Hx Solution 40mg Claudio Rec Disha Mauro MD 09/17 Dexilant 09/17 Hx Capsules 30mg 30cap Take [address] workman capsule by Disha collier daily , 09/21 for 4 weeks for gastroesopha geal refluxdiseas e Clindamycin HCL 09/15 Hx Capsules 300mg 30cap take 1 H60.11 Claudio s capsule by Disha collier every , 10/23 8 hours for 10 days Protonix 09/[address] 40mg 30tab 1 by mouth Claudio s every day Disha Mauro MD 09/20 Doxycycline 06/07 Hx Tablets 100mg 20tab 1 tab by Anders Malik s mouth twice Disha - a day MD 06/23 [place] 06/07 Hx Tablets 5-325mg 90tab 1 tab by Claudio s mouth three Disha - times a day , 06/07 as needed Tessalon Perles 06/07 Hx Capsules 100mg 60cap take 1 J44.9 Claudio s capsule by Disha - nando 3 , 10/23 times per day as needed for cough Clindamycin HCL 05/17 Hx Capsules 300mg 21cap take 1 H66.91 Claudio s capsule by Disha - mouth every , 06/07 8 hours for 7 days Morphine Sulfate 05/17 Hx Tablets 15mg 60tab 1 tab by Claudio s mouth two [place]etarmida - times a day , 06/07 as needed Azithromycin 05/05 Hx Tablets 250mg 6tabs take 2 J01.90 Mally tablets [place] Jarrett today then 1 [employer]-C 06/07 tablet daily for the next 4 days Benzonatate 05/05 Hx Capsules 100mg 45cap take 1 J01.90 Mally s capsules by [place] Jarrett mouth three [employer]-C 03/27 times a day as needed for coughing Zyrtec Allergy 04/14 Hx Tablets 10mg 30tab 1 by mouth Claudio s every day Disha - , 06/23 Magnesium Oxide 03/29 Hx Capsules 400mg 30cap 1 tab by Claudio -MG Supplement s mouth daily Disha - , 06/23 Magnesium Oxide 03/29 Hx Tablets 400mg 30tab Take One Claudio s Tablet [place] - Daily. , 03/27 Prednisone 03/22 Hx Tablets 50mg 3tabs 1 tab by Claudio /2015 mouth daily [place] - for 3 days [...] 120ta Take One S29.012A bs Tablet By Heetlupisks - Mouth Four MD 11/30 Times A Day as Needed Cyclobenzaprine 09/02 Hx Tablets 10mg 90tab take 1 M54.5 Claudio HCL s tablet by [place] - mouth 3 , 10/06 times per day for muscle spasm with pain Hydrocodone-Acet 09/02 Hx Tablets 5-325mg 30tab 1 tab by M54.5 Claudio aminophen s mouth three [place] - times a day , 10/19 as needed Ranitidine 150 08/22 Hx Tablets 150mg 60tab 1 tab by Claudio Maximum Strength s mouth twice [place] - a day , 09/15 Azithromycin 07/28 Hx Tablets 250mg 6tabs take 2 J01.90 Claudio tablets by [place] - mouth one MD 08/22 time then take one daily for 4 days Proair HFA 07/28 Hx Aerosol 108(90Bas 2unit 1-2 puffs e) s every 6 [place] - mcg/Act hours as , 03/27 Advair HFA 07/28 Hx Aerosol 115-21mcg 24uni inhale one / ts puff by [place] - mouth twice , 09/20 a /2016 Flexeril 07/19 Hx Tablets 10mg 60tab 1 tab by M54.5 Claudoi s mouth three [place] - times a day , 07/19 Skelaxin 07/19 Hx Tablets 800mg 60tab 1 tab by M54.5 Claudio /2015 s mouth three [place] - times a day , 10/06 Hydrocodone-Acet 07/19 Hx Tablets 5-325mg 30tab 1 by mouth M54.5 Claudio aminophen /2015 s q4 - 6 hours [place] - as needed , 10/19 Tolnaftate 07/19 Hx Cream 1% 60uni 1 apply to ts affected [place] - area twice a , 03/15 day for weeks Fluoxetine HCL 04/15 Hx Capsules 40mg 30cap 1 by mouth Claudio /2014 s every day Disha - , 03/22 Magnesium 04/15 Hx Capsules 400mg 30cap 1 tab by Claudio /2014 s mouth daily Heetdercarolynn - , 03/29 Trazodone HCL 04/15 Hx Tablets 100mg 2 tab by Claudio /2014 mouth every [place] - night , 10/06 Cetirizine HCL 04/15 Hx Tablets 10mg 30tab 1 by mouth Claudio /2014 s every day Guerreroetarmida - , 07/19 Amitriptyline 04/15 Hx Tablets 25mg 30tab as needed Claudio HCL /2014 s [place] - , 07/19 Topiramate 04/15 Hx Tablets 100mg 60tab once a day Claudio /2015 s He[place]der[place]olynn - , 01/26 Clopidogrel 04/15 Hx Tablets 75mg 30tab 1 by mouth Claudio Bisulfate /2014 s every day Disha Mauro MD 07/19 Quetiapine 04/15 Hx Tablets 400mg 30tab Claudio Fumarate s Disha Mauro MD 03/22 Omeprazole 04/15 Hx Capsules 40mg 30cap Take One Claudio s Capsule By [place] - Mouth MD Daija 09/17 Atenolol 04/15 Hx Tablets 25mg 30tab Take One Claudio s Tablet By [place] - Mouth MD Daija Nicotine 04/14 Hx Lozenges 2mg 120un 1 Dissolve Z72.0 Claudio Polacrilex its by mouth Disha - lozenge MD Kelly 10/06 times day for smoking cessation Albuterol 00/00 Hx Unknown Sulfate /0000 - 08/22 Albuterol HFA 00/00 Hx Unknown /0000 - 08/22 Diazepam 00/00 Hx Tablets 5mg Unknown /0000 - 03/15 Oxycodone-Acetam 0000 Hx Tablets 5-325mg 60tab 1 by mouth Claudio inophen /0000 s every 4 Gu[place]ro[place] - martha dubose MD 03/15 severe pain Prednisone 00/00 Hx Tablets 20mg Take Two Unknown /0000 Tablets By - Mouth Every Dose Due 6 12 17 Prednisone 00/00 Hx Tablets 10mg Unknown /0000 - 03/07 Immunizations CPT Code Status Date Vaccine Lot # [id number] Given 03/27/2018 Influenza Virus Vaccine, Quadrivalent, 3 Yr > [id number] Quad, Preserv Free [id number] Given 03/07/2017 Influenza Virus Vaccine, Quadrivalent, 3 Yr > [id number] Quad, Preserv Free 34428 Given 03/15/2016 Influenza Virus Vaccine, Quadrivalent, 3 Yr > [id number] Quad, Preserv Free 19813 Given 04/14/2015 Influenza Virus Vaccine, Quadrivalent, 3 Yr > [id number] Quad, Preserv Free 81142 Given 06/18/2009 Tdap (Adacel) Vital Signs Date Vital Result Comment 03/27/2018 9:18am Weight 232.00 lb Weight 105.235 kg BP Systolic 138 mmHg BP Diastolic 82 mmHg Heart Rate 80 /min Body Temperature 97.6 F Respiratory Rate 16 /min O2 % BldC Oximetry 90 % 03/23/2018 12:05pm Weight 234.00 lb Weight 106.142 kg BP Systolic 142 mmHg BP Diastolic 85 mmHg Heart Rate 104 /min Body Temperature 98.5 F O2 % BldC Oximetry 86 % , repeat 90% after neb 01/16/2018 11:05am Weight 229.00 lb Weight 103.874 kg BP Systolic 115 mmHg BP Diastolic 80 mmHg Heart Rate 108 /min Body Temperature 98.6 F O2 % BldC Oximetry 91 % 12/21/2017 8:52am Weight 230.00 lb Weight 104.328 kg BP Systolic 130 mmHg BP Diastolic 72 mmHg Heart Rate 72 /min Body Temperature 97.1 F Respiratory Rate 16 /min 12/01/2017 9:54am Weight 233.00 lb Weight 105.689 kg BP Systolic 120 mmHg BP Diastolic 70 mmHg Heart Rate 76 /min Body Temperature 97.4 F Respiratory Rate 18 /min O2 % BldC Oximetry 91 % 07/31/2017 10:14am Weight 239.00 lb w/ sneakers Weight 108.410 kg BP Systolic 132 mmHg BP Diastolic 88 mmHg Heart Rate 68 /min Body Temperature 98.2 F Respiratory Rate 20 /min O2 % BldC Oximetry 86 % 96% after neb 07/06/2017 8:38am Weight 234.00 lb Weight 106.142 kg BP Systolic 130 mmHg BP Diastolic 84 mmHg Heart Rate 82 /min Body Temperature 97.6 F Respiratory Rate 16 /min O2 % BldC Oximetry 95 % 06/07/2017 11:01am BP Systolic 140 mmHg BP Diastolic 82 mmHg Heart Rate 82 /min Body Temperature 97.3 F Respiratory Rate 16 /min 04/09/2017 2:50pm Weight 235.00 lb Weight 106.596 kg BP Systolic 140 mmHg BP Diastolic 82 mmHg Heart Rate 72 /min Body Temperature 97.2 F O2 % BldC Oximetry 96 % 03/26/2017 1:47pm Weight 233.00 lb Weight 105.689 kg BP Systolic 150 mmHg BP Diastolic 88 mmHg Heart Rate 76 /min Body Temperature 97.9 F Respiratory Rate 16 /min 03/07/2017 10:07am Weight 240.00 lb Weight 108.864 kg BP Systolic 138 mmHg BP Diastolic 84 mmHg Heart Rate 94 /min Body Temperature 97.8 F Respiratory Rate 22 /min O2 % BldC Oximetry 96 % 12/25/2016 8:42am Weight 240.00 lb Weight 108.864 kg BP Systolic 153 mmHg BP Diastolic 94 mmHg Heart Rate 118 /min Body Temperature 98.3 F O2 % BldC Oximetry 97 % 11/30/2016 11:15am Weight 234.00 lb Weight 106.142 kg BP Systolic 110 mmHg BP Diastolic 80 mmHg Heart Rate 76 /min Body Temperature 97.3 F Respiratory Rate 16 /min O2 % BldC Oximetry 93 % 10/23/2016 7:59am Weight 234.00 lb Weight 106.142 kg BP Systolic 118 mmHg BP Diastolic 80 mmHg Heart Rate 84 /min Body Temperature 97.0 F Respiratory Rate 20 /min Height 66 inches 5'6" BMI (Body Mass Index) 37.8 kg/m2 09/20/2016 10:19am Weight 234.00 lb Weight 106.142 kg BP Systolic 128 mmHg BP Diastolic 80 mmHg Heart Rate 88 /min Body Temperature 97.1 F Respiratory Rate 28 /min O2 % BldC Oximetry 96 % 09/15/2016 3:23pm Weight 238.00 lb Weight 107.957 kg BP Systolic 120 mmHg BP Diastolic 77 mmHg Heart Rate 76 /min 08/24/2016 9:47am Weight 238.00 lb Weight 107.957 kg BP Systolic 118 mmHg BP Diastolic 82 mmHg Heart Rate 84 /min Body Temperature 97.5 F Respiratory Rate 18 /min O2 % BldC Oximetry 97 % 06/23/2016 1:06pm Weight 236.00 lb Weight 107.050 kg BP Systolic 116 mmHg BP Diastolic 66 mmHg Heart Rate 92 /min Body Temperature 98.3 F Respiratory Rate 18 /min O2 % BldC Oximetry 98 % 06/07/2016 3:46pm Weight 240.00 lb Weight 108.864 kg BP Systolic 100 mmHg BP Diastolic 82 mmHg Heart Rate 72 /min Body Temperature 98.2 F Respiratory Rate 12 /min 05/17/2016 4:40pm Weight 237.00 lb Weight 107.503 kg BP Systolic 110 mmHg BP Diastolic 80 mmHg Heart Rate 91 /min Body Temperature 96.6 F Respiratory Rate 20 /min O2 % BldC Oximetry 95 % 05/05/2016 4:32pm Weight 238.00 lb Weight 107.957 kg BP Systolic 132 mmHg BP Diastolic 80 mmHg Heart Rate 80 /min Body Temperature 98.3 F O2 % BldC Oximetry 97 % 03/22/2016 8:24am Weight 231.00 lb Weight 104.782 kg BP Systolic 120 mmHg BP Diastolic 84 mmHg Heart Rate 90 /min Body Temperature 99.6 F O2 % BldC Oximetry 96 % 03/15/2016 8:50am Weight 233.00 lb Weight 105.689 kg BP Systolic 126 mmHg BP Diastolic 88 mmHg Heart Rate 88 /min Body Temperature 98.0 F Respiratory Rate 18 /min 02/23/2016 9:30am Weight 230.00 lb Weight 104.328 kg BP Systolic 124 mmHg BP Diastolic 86 mmHg Heart Rate 88 /min Body Temperature 98.5 F Respiratory Rate 16 /min 01/27/2016 2:48pm Weight 224.00 lb Weight 101.606 kg BP Systolic 125 mmHg BP Diastolic 80 mmHg Heart Rate 88 /min 11/29/2015 9:36am Weight 229.00 lb Weight 103.874 kg BP Systolic 100 mmHg BP Diastolic 68 mmHg Heart Rate 74 /min 11/22/2015 12:58pm Weight 230.00 lb Weight 104.328 kg BP Systolic 102 mmHg BP Diastolic 60 mmHg Heart Rate 59 /min Body Temperature 97.5 F O2 % BldC Oximetry 97 % 11/04/2015 9:58am Weight 227.00 lb Weight 102.967 kg BP Systolic 90 mmHg BP Diastolic 60 mmHg Heart Rate 80 /min Body Temperature 98.2 F 10/07/2015 9:44am Weight 220.00 lb Weight 99.792 kg BP Systolic 130 mmHg BP Diastolic 80 mmHg Heart Rate 80 /min 09/24/2015 9:45am BP Systolic 138 mmHg BP Diastolic 76 mmHg Heart Rate 80 /min 09/17/2015 9:16am Weight 225.00 lb Weight 102.060 kg BP Systolic 110 mmHg BP Diastolic 78 mmHg Heart Rate 89 /min 09/03/2015 9:31am Weight 225.00 lb Weight 102.060 kg BP Systolic 122 mmHg BP Diastolic 81 mmHg Heart Rate 84 /min Body Temperature 98.0 F O2 % BldC Oximetry 98 % 08/23/2015 8:54am Weight 224.00 lb Weight 101.606 kg BP Systolic 108 mmHg BP Diastolic 70 mmHg Heart Rate 72 /min Body Temperature 97.8 F O2 % BldC Oximetry 98 % 07/28/2015 10:10am Weight 216.00 lb Weight 97.978 kg BP Systolic 118 mmHg BP Diastolic 80 mmHg Heart Rate 89 /min Body Temperature 98.0 F O2 % BldC Oximetry 98 % 07/19/2015 8:09am Weight 221.00 lb Weight 100.246 kg BP Systolic 140 mmHg BP Diastolic 80 mmHg Heart Rate 84 /min Height 66 inches 5'6" BMI (Body Mass Index) 35.7 kg/m2 05/17/2015 8:50am Weight 216.00 lb Weight 97.978 kg BP Systolic 130 mmHg BP Diastolic 80 mmHg Heart Rate 76 /min 04/14/2015 9:06am Weight 208.00 lb Weight 94.349 kg BP Systolic 120 mmHg BP Diastolic 80 mmHg Heart Rate 76 /min Height 66 inches 5'6" BMI (Body Mass Index) 33.6 kg/m2 Results Test Date Facility Test Result H/L Range Note Inr/Protime 01/27/2018 [facility] Inr 0.93 0.77- 1.02 [phone] Laboratory test 01/27/2018 [facility] Partial 30.1 seconds 26.0-36.3 finding [phone] Thrombo Time PTT Comp Metabolic 01/27/2018 [facility] Sodium 139 mmol/ L 135-145 Panel [phone] Potassium 3.7 mmol/L 3.5-5.0 Chloride 106 mmol/L 101-111 Co2 Carbon Dioxide 26 mmol/L 22-32 Anion Gap 7 mmol/L 2-11 Glucose 100 mg/dL 70-100 Blood Urea Nitrogen 12 mg/dL 6-24 Creatinine 0.89 mg/dL 0.51-0.95 BUN/Creatinine Ratio 13.5 8-20 Calcium 9.7 mg/dL 8.6-10.3 Total Protein 7.2 g/dL 6.4-8.9 Albumin 4.3 g/dL 3.2-5.2 Globulin 2.9 g/dL 2-4 Albumin/Globulin Ratio 1.5 1-3 Total Bilirubin 0.30 mg/dL 0.2-1.0 Alkaline Phosphatase 97 U/L 34-104 Alt 21 U/L 7-52 Ast 16 U/L 13-39 Egfr Non- 68.9 >60 Egfr 83.4 >60 1 Laboratory test 01/27/2018 [facility] Creatine Kinase 90 U/L 10-223 finding [phone] C Reactive Protein 25.72 mg/L High <8.01 Troponin-I (TnI) 0.00 ng/mL <0.04 Lactic Acid 1.7 mmol/L 0.5-2.0 2 CBC Auto Diff 01/27/2018 [facility] White Blood 5.1 10^3/uL 3.5-10.8 [phone] Count Red Blood Count 4.96 10^6/uL 4.00-5.40 Hemoglobin 13.6 g/dL 12.0-16.0 Hematocrit 42 % 35-47 Mean Corpuscular Volume 84 fL 80-97 Mean Corpuscular Hemoglobin 28 pg 27-31 Mean Corpuscular HGB Conc 33 g/dL 31-36 Red Cell Distribution Width 16 % High 10.5-15 Platelet Count 152 10^3/uL 150-450 Mean Platelet Volume 9.2 um3 7.4-10.4 Abs Neutrophils 3.1 10^3/uL 1.5-7.7 Abs Lymphocytes 1.3 10^3/uL 1.0-4.8 Abs Monocytes 0.6 10^3/uL 0-0.8 Abs Eosinophils 0 10^3/uL 0-0.6 Abs Basophils 0 10^3/uL 0-0.2 Abs Nucleated RBC 0 10^3/uL Granulocyte % 60.8 % 38-83 Lymphocyte % 26.3 % 25-47 Monocyte % 11.5 % High 0-7 Eosinophil % 0.5 % 0-6 Basophil % 0.9 % 0-2 Nucleated Red Blood Cells % 0.1 Laboratory test 01/27/2018 [facility] B-Type 21 pg/ mL 3 finding [phone] Natriuretic Peptide BNP Laboratory test 01/10/2018 [facility] Pathologist ( SEE NOTE) 4 finding [phone] Review Manual 01/10/2018 [facility] Neutrophil % 70 % 38- 83 Differential [phone] Lymphocytes % 16 % Low 25-47 Monocytes % 11 % High 0-7 Eosinophils % 0 % 0-6 Basophil % 0 % 0-2 Variant Lymph % 3 % 0-6 Abs Neutrophils 4.2 10^3/uL 1.5-7.7 Abs Lymphocytes 1.0 10^3/uL 1.0-4.8 Abs Monocytes 0.7 10^3/uL 0-0.8 Abs Eosinophils 0 10^3/uL 0-0.6 Abs Basophils 0 10^3/uL 0-0.2 RBC Morphology Normal Normal Laboratory test 01/10/2018 [facility] Lactic Acid 1.4 mmol/L 0.5-2.0 5 finding [phone] CBC Auto Diff 01/10/2018 [facility] White Blood 6.0 10^3/uL 3.5-10.8 [phone] Count Red Blood Count 4.88 10^6/uL 4.00-5.40 Hemoglobin [...] Abs Basophils 0.1 10^3/uL 0-0.2 Laboratory test 01/10/2018 [facility] Troponin-I (TnI ) 0.01 ng/mL <0.04 finding [phone] Comp Metabolic 01/10/2018 [facility] Sodium 140 mmol/ L 135-145 Panel [phone] Potassium 4.1 mmol/L 3.5-5.0 Chloride 105 mmol/L [...] Egfr Non- 70.7 >60 Egfr 85.6 >60 6 Laboratory test 01/10/2018 [facility] Troponin-I 0.00 ng/mL <0.04 finding [phone] (TnI) Arterial Blood 02/10/2017 [facility] PH Arterial 7.39 7.35-7.45 Gas [phone] Pco2 Arterial 42 mmHg 35-45 Po2 Arterial 68 mmHg Low 80-100 O2 Saturation Arterial 96.4 % 95-98 Base Excess Arterial 0.3 -2.0-2.0 7 Hco3 Arterial 24.9 mmol/L 19- Laboratory test 02/10/2017 [facility] Lactic Acid 1.6 mmol/L 0.5-2.0 8 finding [phone] Laboratory test 01/04/2017 [facility] Troponin-I 0.00 ng/mL <0.04 finding [phone] (TnI) B-Type Natriuretic Peptide BNP 30 pg/mL 9 Blood Culture SEE RESULT BELOW 10 Comp Metabolic Panel 01/04/2017 [facility] Sodium 135 mmol/L 133-145 [phone] Potassium 3.8 mmol/L 3.5-5.0 Chloride 105 mmol/L [...] Egfr Non- 77.2 >60 Egfr 99.2 >60 11 Laboratory test 01/04/2017 [facility] Partial 28.3 seconds 26.0-36.3 finding [phone] Thrombo Time PTT D Dimer Quantitative < 200 ng/mL Less Than 230 12 Inr/Protime 01/04/2017 [facility] Inr 0.92 0.89- 1.11 [phone] CBC Auto Diff 01/04/2017 [facility] White Blood 5.9 10^3/uL 3.5-10.8 [phone] Count Red Blood Count 4.77 10^6/uL 4.0-5.4 Hemoglobin [...] Red Blood Cells % 0.3 Laboratory test 11/24/2016 [facility] Troponin-I (TnI ) 0.01 ng/mL <0.04 finding [phone] Lactic Acid 2.0 mmol/L 0.5-2.0 13 B-Type Natriuretic Peptide BNP 21 pg/mL 14 C Reactive Protein 61.01 mg/L High < 5.00 15 Blood Culture SEE RESULT BELOW 16 Comp Metabolic Panel 11/24/2016 [facility] Sodium 133 mmol/L 133-145 [phone] Potassium 4.2 mmol/L 3.5-5.0 Chloride 100 mmol/L [...] Egfr Non- 68.3 >60 Egfr 87.9 >60 17 CBC Auto Diff 11/24/2016 [facility] White Blood 7.1 10^3/uL 3.5-10.8 [phone] Count Red Blood Count 5.10 10^6/uL 4.0-5.4 Hemoglobin [...] Red Blood Cells % 0 Laboratory Studies 10/23/2016 N2N/CCD Import Absolute Basophils 0 10^3/ul 0-0.2 (auto) Absolute Eosinophils (auto) 0 10^3/ul 0-0.6 Absolute [...] mg/dL White Blood Count 5.7 10^3/ul 3.5-10.8 Lipid Profile 10/23/2016 [facility] Triglycerides 125 mg/dL 18 (Trig/Chol/HDL) [phone] Cholesterol 164 mg/dL 19 HDL Cholesterol 31.7 mg/dL 20 LDL Cholesterol 107 mg/dL 21 Laboratory test 10/23/2016 [facility] Hemoglobin A1c 5.8 % Less than 22 finding [phone] (Glyco HGB) 6.0 CBC Auto Diff 10/23/2016 [facility] White Blood 5.7 3.5-10.8 [phone] Count 10^3/uL Red Blood Count 5.06 10^6/uL 4.0-5.4 Hemoglobin [...] Nucleated Red Blood Cells % 0.2 Laboratory test 07/26/2016 [facility] Body Fluid SEE RESULT 23, 24 finding [phone] Cult & Gram BELOW [employer] Profile SEE RESULT BELOW 25 Laboratory test 07/26/2016 [facility] Fungal Cult - SEE RESULT 26 finding [phone] Other Sources BELOW Laboratory test 07/26/2016 [facility] Fungal Cult - SEE RESULT 27 finding [phone] Other Sources BELOW Laboratory test 07/26/2016 [facility] Mycobacterial See Comment 28 finding [phone] Culture Laboratory test 07/15/2016 [facility] Inr 0.99 0.89- finding [phone] 1.11 Partial Thrombo Time PTT 30.2 seconds 26.0-36.3 Comp Metabolic Panel 07/15/2016 [facility] Sodium 137 mmol/L 133-145 [phone] Potassium 3.5 mmol/L 3.5-5.0 Chloride 105 mmol/L [...] Egfr Non- 78.7 >60 Egfr 101.2 >60 29 CBC Auto Diff 07/15/2016 [facility] White Blood 5.3 10^3/uL 3.5-10.8 [phone] Count Red Blood Count 4.83 10^6/uL 4.0-5.4 Hemoglobin [...] Blood Cells % 0 Laboratory Studies 07/15/2016 N2N/CCD Import Absolute Basophils 0 10^3/ul 0-0.2 (auto) Absolute Eosinophils (auto) 0 10^3/ul 0-0.6 Absolute [...] 6.4-8.9 White Blood Count 5.3 10^3/ul 3.5-10.8 Comp Metabolic Panel 06/23/2016 [facility] Sodium 136 mmol/L 133-145 [phone] Potassium 4.1 mmol/L 3.5-5.0 Chloride 103 mmol/L [...] Egfr Non- 66.1 >60 Egfr 85.0 >60 30 Laboratory test 06/23/2016 [facility] Free T4 (Free 0.85 0.61-1.12 31 finding [phone] Thyroxine) ng/dL Laboratory test 06/23/2016 [facility] TSH (Thyroid 6.73 High 0.34-5.60 32 finding [phone] Stim Horm) mcIU/mL CBC Auto Diff 06/23/2016 [facility] White Blood 5.6 3.5-10.8 [phone] Count 10^3/uL Red Blood Count 4.75 10^6/uL 4.0-5.4 Hemoglobin [...] Red Blood Cells % 0.1 Laboratory test 03/15/2016 [facility] Free T4 (Free 0.72 ng/dL 0.61-1.12 33 finding [phone] Thyroxine) T3 Total 1.04 ng/mL 0.87-1.78 34 TSH (Thyroid Stim Horm) 10.86 mcIU/mL High 0.34-5.60 35 CBC Auto Diff 03/15/2016 [facility] White Blood 6.3 10^3/uL 3.5-10.8 [phone] Count Red Blood Count 4.85 10^6/uL 4.0-5.4 Hemoglobin [...] Red Blood Cells % 0 Laboratory test 11/23/2015 [facility] Magnesium 2.3 mg/dL 1.9-2.7 finding [phone] Creatine Kinase 65 U/L 10-223 Troponin I 0.00 ng/mL <0.03 36 TSH (Thyroid Stimulating Horm) 4.07 ?IU/mL 0.34-5.60 Comp Metabolic Panel 11/23/2015 [facility] Sodium 139 mmol/L 133-145 [phone] Potassium 3.7 mmol/L 3.5-5.0 Chloride 105 mmol/L [...] Egfr Non- 72.4 >60 Egfr 93.1 >60 37 CBC Auto Diff 11/23/2015 [facility] White Blood 3.5 10^3/uL 3.5-10.8 [phone] Count Red Blood Count 4.55 10^6/uL 4.0-5.4 Hemoglobin [...] Red Blood Cells % 0.1 Laboratory test 11/23/2015 [facility] Urine Culture SEE RESULT 38 finding [phone] BELOW Urinalysis Profile 11/23/2015 [facility] Urine Color Yellow [phone] Urine Appearance Turbid Urine Specific Apex 1.016 1.010-1.030 Urine pH 7.0 5-9 Urine [...] Absent Urine Yeast Present Absent Laboratory test 11/23/2015 [facility] Troponin I 0.00 <0.03 39, 40 finding [phone] ng/mL CBC Auto Diff 11/08/2015 [facility] White Blood 4.0 3.5-10.8 [phone] Count 10^3/uL Red Blood Count 4.71 10^6/uL 4.0-5.4 Hemoglobin [...] Blood Cells % 0.1 Urinalysis Profile 11/04/2015 [facility] Urine Color Yellow [phone] Urine Appearance Cloudy Urine Specific Apex 1.010 1.010-1.030 Urine pH 7.0 5-9 Urine Urobilinogen Negative Negative Urine Ketones Negative Negative Urine Protein Negative Negative Urine Leukocytes 2+ Negative Urine Blood Negative Negative Urine Nitrite Negative Negative Urine Bilirubin Negative Negative Urine Glucose Negative Negative Urine White Blood Cell Trace(0-5/hpf) Absent Urine Red Blood Cell Absent Absent Urine Bacteria Absent Absent Urine Squamous Epithelial Cell Present Absent Laboratory test 11/04/2015 [facility] Urine Culture SEE RESULT 41 finding [phone] BELOW Inr/Protime 11/04/2015 [facility] Inr 0.88 Low 0.89 -7 [phone] Comp Metabolic 11/04/2015 [facility] Sodium 137 mmol/ L 133-14 Panel [phone] Potassium 4.5 mmol/L 3.5-5.0 Chloride 105 mmol/L [...] Egfr Non- 75.4 >60 Egfr 97.0 >60 42 Laboratory test 11/04/2015 [facility] HCG < 0.60 43 finding [phone] mIU/mL CBC Auto Diff 08/15/2015 [facility] White Blood 2.7 10^3/uL Low 3.5-8 [phone] Count 0.8 Red Blood Count 4.81 10^6/uL 4.0-5.4 Hemoglobin [...] Red Blood Cells % 0.1 Laboratory test 08/15/2015 [facility] Lactic Acid 0.9 mmol/L 0.5-2.0 44 finding [phone] Inr/Protime 08/15/2015 [facility] Inr 1.07 0.89- 1.11 [phone] Laboratory test 08/15/2015 [facility] Partial 35.8 seconds 26.0-36.3 finding [phone] Thrombo Time PTT B-Type Natriuretic Peptide BNP 10 pg/mL 45 Comp Metabolic Panel 08/15/2015 [facility] Sodium 135 mmol/L 133-145 [phone] Potassium 3.7 mmol/L 3.5-5.0 Chloride 110 mmol/L [...] Egfr Non- 79.0 >60 Egfr 101.7 >60 46 Laboratory test 08/15/2015 [facility] Magnesium 2.1 mg/dL 1.9-2.7 finding [phone] Lipase 25 U/L 11.0-82.0 Creatine Kinase 53 U/L 10-223 C Reactive Protein 17.16 mg/L High < 5.00 47 Troponin I 0.00 ng/mL <0.03 48 CKMB 08/15/2015 [facility] CKMB ng/mL 1.7 ng/mL 0.6-6.3 [phone] Laboratory test 08/15/2015 [facility] TSH (Thyroid 4.07 0.34-5.60 finding [phone] Stimulating Horm) ?IU/mL Lipid Profile 07/19/2015 [facility] Triglycerides 158 mg/dL 49 (Trig/Chol/HDL) [phone] Cholesterol 177 mg/dL 50 HDL Cholesterol 33.5 mg/dL 51 LDL Cholesterol 112 mg/dL 52 Laboratory test 07/19/2015 [facility] Hemoglobin A1c 5.4 % Less than 53 finding [phone] (Glyco HGB) 6.0 CBC Auto Diff 07/19/2015 [facility] White Blood 4.0 3.5-10.8 [phone] Count 10^3/uL Red Blood Count 4.75 10^6/uL 4.0-5.4 Hemoglobin [...] Cells % 0.2 Comp Metabolic Panel 07/19/2015 [facility] Sodium 136 mmol/L 133-145 [phone] Potassium 4.6 mmol/L 3.5-5.0 Chloride 107 mmol/L [...] Egfr Non- 77.9 >60 Egfr 100.2 >60 54 1 Because ethnic data is not always [...] 5 Kidney failure <15 (or dialysis) 2 [facility] Severe Sepsis and Septic Shock Management Bundle Measure requires all lactic acids initially measuring >2.0 mmol/L be repeated. 3 >100 to <200 pg/mL: likely compensated congestive heart failure (CHF) 200 to 400 pg/mL: likely moderate CHF >400 pg/mL: likely moderate to severe CHF 4 Mild monocytosis favor reactive. Reviewed by Dr. Andrews 5 [facility] Severe Sepsis and Septic Shock Management Bundle Measure requires all lactic acids initially measuring >2.0 mmol/L be repeated. 6 Because ethnic data is not always readily [...] 15-29 5 Kidney failure <15 (or dialysis) 7 Reference ranges based on room air. 8 [facility] Severe Sepsis and Septic Shock Management Bundle Measure requires all lactic acids initially measuring >2.0 mmol/L be repeated. 9 >100 to <200 pg/mL: likely compensated congestive heart failure (CHF) 200 to 400 pg/mL: likely moderate CHF >400 pg/mL: likely moderate to severe CHF 10 SEE RESULT BELOW Name: JOSEFA,ALYSIA R : [address]: Jorge Mendoza MD Acct: [id number] Unit: [id number] AGE: 41 Location: ED Re01/03/17 SEX: F Status: DEP ER SPEC: [id number] YOANA: 01/04/17 [facility] DR: Jorge Mendoza MD REQ: [id number] RECD: 01/04/17 STATUS: AALIYAH JEWELL DR: Claudio Gauthier MD _ SOURCE: BLOOD,VENO SPDESC: ORDERED: Blood Cult COMMENTS: Patient is On Antibiotics? NO Procedure Result Reported Site Aerobic Culture Bottle Final 01/09/17- 015 ML No Growth Day 5 Anaerobic Culture Bottle Final 01/09/17- 015 ML No Growth Day 5 * ML - MAIN LAB ([facility]) . END OF REPORT * ML=Testing performed at Main Lab DEPARTMENT OF PATHOLOGY, [address] [place] [address] John Andrews M.D. Director [facility] # [id number] 11 Because ethnic data is not always readily [...] 15-29 5 Kidney failure <15 (or dialysis) 12 Please note: The following may produce a false positive D Dimer test: - Rheumatoid factor greater than 60 IU/ml - Plasma hemoglobin greater than 0.05 gm/dl - Bilirubin greater than 50 mg/dl - Lipids greater than 1000 mg/dl - FDP greater than 20 ug/ml 13 [facility] Severe Sepsis and Septic Shock Management Bundle Measure requires all lactic acids initially measuring >2.0 mmol/L be repeated. 14 >100 to <200 pg/mL: likely compensated congestive heart failure (CHF) 200 to 400 pg/mL: likely moderate CHF >400 pg/mL: likely moderate to severe CHF 15 Acute inflammation: >10.00 16 SEE RESULT BELOW Name: ALYSIA ADEN : [address]: Nahun Ferguson MD Acct: [id number] Unit: [id number] AGE: 41 Location: [place] [address] Re11/25/16 Dis: 11/26/16 SEX: F Status: DIS IN SPEC: [id number] YOANA: 11/24/16 [facility] [address]: Flaquito Coto DO REQ: [id number] RECD: 11/24/16 STATUS: AALIYAH JEWELL DR: Claudio Gauthier MD _ SOURCE: BLOOD,VENO SPDESC: ORDERED: Blood Cult Procedure Result Reported Site Aerobic Culture Bottle Final 11/29/16- 2208 ML No Growth Day 5 Anaerobic Culture Bottle Final 11/29/16- 2208 ML No Growth Day 5 * ML - [facility] ([facility]) . END OF REPORT * ML=Testing performed at Main Lab DEPARTMENT OF PATHOLOGY, [address] [place] [address] John Andrews M.D. Director [facility] # [id number] 17 Because ethnic data is not always readily [...] 15-29 5 Kidney failure <15 (or dialysis) 18 Desirable <150 Borderline high 150-199 High 200-499 Very High >500 19 Desirable <200 Borderline high 200-239 High >239 20 Low <40 Desirable: 40-60 High: >60 21 Desirable: <100 mg/dL Near Optimal: 100-129 mg/dL Borderline High: 130-159 mg/dL High: 160-189 mg/dL Very High: >189 mg/dL 22 Therapeutic target for the treatment of diabetes Mellitus patients is <7% HBA1C, and in selective patients <6.0%.Please refer to [place] [employer] Diabetic care guidelines for further information. 23 LEFT UPPER LOBE LAVAGE: LUNG NODULES, LEFT UPPER LOBE 24 SEE RESULT BELOW Name: ALYSIA ADEN : [address]: Janette Sebastian MD Acct: [id number] Unit: [id number] AGE: 40 Location: [place] Re07/26/16 SEX: F Status: DEP SDC SPEC: [id number] YOANA: 07/26/16-1252 [facility] [address]: Janette Sebastian MD REQ: [id number] RECD: 07/26/166 STATUS: AALIYAH JEWELL DR: Claudio Gauthier MD [...] Quantity 1+ * ML - MAIN LAB ([facility]) . END OF REPORT * ML=Testing performed at Main Lab DEPARTMENT OF PATHOLOGY, [address] [place] [address] John Andrews M.D. Director [facility] # [id number] 25 SEE RESULT BELOW Name: ALYSIA ADEN : [address]: Janette Sebastian MD Acct: [id number] Unit: [id number] AGE: 40 Location: [place] Re07/26/16 SEX: F Status: [place] [facility]: [id number] YOANA: 07/26/16-1251 [facility] [address]: Janette Sebastian MD REQ: [id number] RECD: 07/26/16 STATUS: RES FANTA DR: Claudio Gauthier MD _ SOURCE: RESP [...] for diagnosis. * ML - MAIN LAB ([facility]) . END OF REPORT * ML=Testing performed at Main Lab DEPARTMENT OF PATHOLOGY, [address] [place] [address] John Andrews M.D. Director [facility] # [id number] 26 SEE RESULT BELOW Name: ALYSIA ADEN : [address]: Janette Sebastian MD Acct: [id number] Unit: [id number] AGE: 40 Location: OR Re07/26/16 SEX: F Status: NATALIE NYEC SPEC: [id number] YOANA: 07/26/16-1252 [facility] [address]: Janette Sebastian MD REQ: [id number] RECD: 07/26/16-0 STATUS: RICH JEWELL DR: Claudio Gauthier MD _ SOURCE: [...] highly recommended for diagnosis. * ML - [facility] ([facility]) . END OF REPORT * ML=Testing performed at Main Lab DEPARTMENT OF PATHOLOGY, [address] [place] [address] John Andrews M.D. Director [facility] # [id number] 27 SEE RESULT BELOW Name: ALYSIA ADEN : [address]: Janette Sebastian MD Acct: [id number] Unit: [id number] AGE: 40 Location: OR Re07/26/16 SEX: F Status: DEP SDC SPEC: [id number] YOANA: 07/26/16-12[address] [facility] [address]: Janette Sebastian MD REQ: [id number] RECD: 07/26/16 STATUS: AALIYAH JEWELL DR: Claudio [...] highly recommended for diagnosis. * ML - [facility] ([facility]) . END OF REPORT * ML=Testing performed at [facility] DEPARTMENT OF PATHOLOGY, [address] [place] [address] John Andrews M.D. Director [facility] # [id number] 28 SOURCE: BRONCHOALVEOLAR LAVAGE, LEFT UPPER LOBE LAVAGE MYCOBACTERIAL CULTURE FINAL No growth after 60 days of incubation. Test Performed by: [place] [address] 29 Because ethnic data is not always readily [...] 15-29 5 Kidney failure <15 (or dialysis) 30 Because ethnic data is not always readily [...] 15-29 5 Kidney failure <15 (or dialysis) 31 [id number] 32 [id number] 34 [id number] 35 [id number] 36 Reference Range and Interpretation: TnI (ng/mL) Interpretation Less Than 0.03 ng/mL Not supportive of diagnosis of [place] 0.03 - 0.50 ng/mL Indeterminate: suggest serial studies if clinically indicated. Greater than 0.5 ng/mL Consistent with diagnosis of [place] 37 Because ethnic data is not always readily [...] 15-29 5 Kidney failure <15 (or dialysis) 38 SEE RESULT BELOW Name: ALYSIA ADEN DOB: [address]: Manuela Lopez MD Acct: [id number] Unit: [id number] AGE: 40 Location: ED Re11/23/15 SEX: F Status: DEP ER SPEC: [id number] YOANA: 11/23/[address]: Manuela Lopez MD REQ: [id number] RECD: 11/23/15 STATUS: COMP OTHR DR: Claudio Gauthier MD _ SOURCE: URINE SPDESC: ORDERED: Urine Culture Procedure Result Reported Site Urine Culture Final 11/25/15- 0807 ML No growth of clinically significant organisms * ML - MAIN LAB ([facility]) . END OF REPORT * ML=Testing performed at Main Lab DEPARTMENT OF PATHOLOGY, [address] [place] [address] John Andrews M.D. Director [facility] # [id number] 39 Comment: 23:30 please 40 Reference Range and Interpretation: TnI (ng/mL) Interpretation Less Than 0.03 ng/mL Not supportive of diagnosis of [place] 0.03 - 0.50 ng/mL Indeterminate: suggest serial studies if clinically indicated. Greater than 0.5 ng/mL Consistent with diagnosis of [place] 41 SEE RESULT BELOW Name: ALYSIA ADEN : [address]: Claudio Gauthier MD Acct: [id number] Unit: [id number] AGE: 40 Location: [facility] Re11/04/15 SEX: F Status: REG REF SPEC: [id number] YOANA: 11/04/15-[address]: Claudio Gauthier MD REQ: [id number] RECD: 11/04/15-6882 STATUS: COMP _ SOURCE: URINE SPDESC: ORDERED: Urine Culture Procedure Result Reported Site Urine Culture Final 11/06/15- 900 ML Organism 1 KLEBSIELLA PNEUMONIAE [place] Count 10-25,000 (Moderate) CFU/ML Organism 2 NORMAL ALEXANDER [place] Count 10-25,000 (Moderate) CFU/ML 1. KLEBSIELLA PNEUMONIAE [...] antibiotic reporting. * ML - MAIN LAB ([facility]) . END OF REPORT * ML=Testing performed at Main Lab DEPARTMENT OF PATHOLOGY, [address] [place] [address] John Andrews M.D. Director [facility] # [id number] 42 Because ethnic data is not always readily [...] 15-29 5 Kidney failure <15 (or dialysis) 43 <5.0 Negative 5.0 - 25.0 Indeterminate (Repeat testing recommended after 72 hours) >25.0 Positive Perimenopausal women can display HCG levels of up to 20 mIU/mL 44 [facility] Severe Sepsis and Septic Shock Management Bundle Measure requires all lactic acids initially measuring >2.0mmol/L be repeated. 45 >100 to <200 pg/mL: likely compensated congestive heart failure (CHF) 200 to 400 pg/mL: likely moderate CHF >400 pg/mL: likely moderate to severe CHF 46 Because ethnic data is not always readily [...] 15-29 5 Kidney failure <15 (or dialysis) 47 Acute inflammation: >10.00 48 Reference Range and Interpretation: TnI (ng/mL) Interpretation Less Than 0.03 ng/mL Not supportive of diagnosis of [place] 0.03 - 0.50 ng/mL Indeterminate: suggest serial studies if clinically indicated. Greater than 0.5 ng/mL Consistent with diagnosis of [place] 49 Desirable <150 Borderline high 150-199 High 200-499 Very High >500 50 Desirable <200 Borderline high 200-239 High >239 51 Low <40 Desirable: 40-60 High: >60 52 Desirable: <100 mg/dL Near Optimal: 100-129 mg/dL Borderline High: 130-159 mg/dL High: 160-189 mg/dL Very High: >189 mg/dL 53 Therapeutic target for the treatment of diabetes Mellitus patients is <7% HBA1C, and in selective patients <6.0%.Please refer to [place] [employer] Diabetic care guidelines for further information. 54 Because ethnic data is not always readily [...] Kidney failure <15 (or dialysis) Procedures Date Code Description Status 01/16/2018 84116 Nebulizer Treatment Completed 07/31/2017 55834 Nebulizer Treatment Completed 09/20/2016 44334 Spirometry Completed 06/23/2016 22164 EKG, at Least 12 Leads w/Interpretation and Report Completed 11/04/2015 30786 EKG, at Least 12 Leads w/Interpretation and Report Completed Encounters Type Date Location Provider Dx Diagnosis Office Visit 01/16/2018 Main Office Claudio Gauthier MD R07.89 Other chest pain 11:00a J44.1 Chronic obstructive pulmonary disease w (acute) exacerbation Office Visit 12/21/2017 8:45a Main Office Claudio M54.5 Low back pain MD Disha Office Visit 12/01/2017 9:45a Main Office Marah Lockett S93.601A Unspecified sprain Storm, [employer] of right foot, initial encounter Office Visit 07/31/2017 10:30a Main Office Denys Mulugeta J44.1 Chronic III, [employer] obstructive pulmonary disease w (acute) exacerbation Office Visit 07/06/2017 8:45a Main Office Claudio J44.1 Chronic MD Disha obstructive pulmonary disease w (acute) exacerbation L40.0 Psoriasis vulgaris Office Visit 06/07/2017 11:00a Main Office Claudio Gauthier L40.0 Psoriasis vulgaris I88.1 Chronic lymphadenitis, except mesenteric Office Visit 04/09/2017 Main Office Claudio J44.1 Chronic obstructive 2:45p MD Disha pulmonary disease w (acute) exacerbation Office Visit 03/26/2017 Main Office Claudio H10.89 Other conjunctivitis 1:45p MD Disha Office Visit 03/07/2017 Main Office Claudio F17.210 Nicotine dependence, 10:15a MD Disha cigarettes, uncomplicated R51 Headache J44.9 Chronic obstructive pulmonary disease, unspecified M54.5 Low back pain Z23 Encounter for immunization Office Visit 12/25/2016 8:45a Main Office Claudio F17.210 Nicotine MD Disha dependence, cigarettes, uncomplicated M54.5 Low back pain R21 Rash and other nonspecific skin eruption Office Visit 11/30/2016 11:00a Main Office Claudio Gauthier J18.9 Pneumonia, unspecified organism F17.210 Nicotine dependence, cigarettes, uncomplicated S00.451A Superficial foreign body of right ear, initial encounter M54.5 Low back pain Office Visit 10/23/2016 8:00a Main Office Claudio Gauthier Z00.8 Encounter for other general examination J44.9 Chronic obstructive pulmonary disease, unspecified E03.9 Hypothyroidism, unspecified M54.5 Low back pain E66.3 Overweight Z72.0 Tobacco use I60.9 Nontraumatic subarachnoid hemorrhage, unspecified Office Visit 09/20/2016 10:30a Main Office Claudio Gauthier J44.9 Chronic MD obstructive pulmonary disease, unspecified Office Visit 09/15/2016 3:15p Main Office Claudio Gauthier, H60.11 Cellulitis of MD right external ear Office Visit 08/24/2016 9:45a Main Office Claudio Gauthier, E03.9 Hypothyroidism, unspecified J44.9 Chronic obstructive pulmonary disease, unspecified M54.5 Low back pain Office Visit 06/23/2016 1:15p Main Office Claudio Gauthier, R91.8 Other nonspecific MD abnormal finding of lung field J44.9 Chronic obstructive pulmonary disease, unspecified M54.5 Low back pain R07.89 Other chest pain Office Visit 06/07/2016 3:30p Main Office Claudio Gauthier J44.9 Chronic MD obstructive pulmonary disease, unspecified M54.5 Low back pain H66.91 Otitis media, unspecified, right ear Office Visit 05/17/2016 4:15p Main Office Claudio Gauthier, H66.91 Otitis media, unspecified, right ear J44.9 Chronic obstructive pulmonary disease, unspecified M54.5 Low back pain Office Visit 05/05/2016 Main Office Mally Jarrett, J01.90 Acute sinusitis , 4:30p [employer] unspecified Office Visit 03/22/2016 Main Office Claudio T43.595A Adverse effect of 8:45a MD iDsha oth antipsychotics and neuroleptics, init Office Visit 03/15/2016 Main Office Claudio F30.9 Manic episode, 8:45a MD Disha unspecified E03.9 Hypothyroidism, unspecified E66.3 Overweight Z23 Encounter for immunization Office Visit 02/23/2016 9:30a Main Office Claudio Gauthier MD M54.5 Low back pain H91.91 Unspecified hearing loss, right ear Office Visit 01/27/2016 2:45p Main Office Claudio Gauthier MD M54.5 Low back pain Office Visit 11/29/2015 9:30a Main Office Claudio Gauthier MD R00.2 Palpitations M54.5 Low back pain Office Visit 11/22/2015 1:00p Main Office Claudio Gauthier M54.5 Low back pain Office Visit 11/04/2015 10:15a Main Office Claudio Gauthier I67.1 Cerebral MD aneurysm, nonruptured Office Visit 10/07/2015 9:45a Main Office Claudio Gauthier, S29.012A Strain of muscle MD and tendon of back wall of thorax, init Office Visit 09/24/2015 9:45a Main Office Claudio Gauthier, S29.012A Strain of muscle MD and tendon of back wall of thorax, init Office Visit 09/17/2015 9:15a Main Office Claudio aGuthier M54.5 Low back pain F25.0 Schizoaffective disorder, bipolar type Office Visit 09/03/2015 9:30a Main Office Claudio Gauthier M54.5 Low back pain Office Visit 08/23/2015 9:00a Main Office Claudio Gauthier S29.001A Unsp injury of msl/tnd of front wall of thorax, init J18.9 Pneumonia, unspecified organism K21.9 Gastro-esophageal reflux disease without esophagitis Office Visit 07/28/2015 10:00a Main Office Claudio Gauthier J01.90 Acute sinusitis, unspecified Office Visit 07/19/2015 8:00a Main Office Claudio Gauthier Z00.8 Encounter for other general examination I10 Essential (primary) hypertension Z72.0 Tobacco use M54.5 Low back pain Office Visit 05/17/2015 9:00a Main Office Claudio Gauthier F17.213 Nicotine MD dependence, cigarettes, with withdrawal M54.5 Low back pain I60.9 Nontraumatic subarachnoid hemorrhage, unspecified Office Visit 04/14/2015 9:15a Main Office Claudio Gauthier MD Z72.0 Tobacco use M54.5 Low back pain I10 Essential (primary) hypertension I60.9 Nontraumatic subarachnoid hemorrhage, unspecified Z23 Encounter for immunization Plan of Treatment 03/27/2018 - Claudio Gauthier MDF17.210 Nicotine dependence, cigarettes, uncomplicatedComments:She continues to work very hard at quitting smoking, with some success. I encouraged her to press forward give up the cigarettes completely.We discussed the difficulty of her partner still continuing to smoke.J44.1 Chronic obstructive pulmonary disease with (acute) exacerbatComments :Her COPD exacerbation seems to have resolved at this point. She is at or near her usual level of lung function (still impaired).She is doing well with the alterations M.B. made to her regimen. She still has six days of antibiotics left , as well as most of her steroid taper.
--- OUTSIDE RECORDS SUMMARY | 2018-04-01 12:38 | XMS REPORT | Continuity of Care Document ---
:1975 External Reference #:[id number] Author Name Perla Vasquez M.D. 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 Payers Type Date Identification Numbers Payment Provider Subscriber Effective: Policy Number: [id number] Michael Aden 2015 [facility] PayID: [id number] [place] [address] Advance Directives Description No Information Available Problems Description No Information Family History Date Family Member(s) Problem(s) Comments General Cancer, Colon General Cancer, Breast General Diabetes General Heart Disease General Cerebral Aneurysms Mother Cancer, Colon Social History Type Date Description Comments Sex Unknown Marital Status Andrew Casey Lives With Male Partner 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 x 10 [...] Disha times a day , as needed Cormax Scalp 07/06 Active Solution 0.05% 100ml 1 apply to Claudio affected [place] every , day when showering Protonix 05/[address] 40mg 30tab take one s tablet by Disha mouth every , day Nicotine 03/07 Active Patches 21mg/24HR 28uni 1 patch 24HR ts daily MD Disha Pulse Oxygen 03/07 Active For F17.210 Claudio assessing Disha COPD status. MD Metoprolol 03/01 Active Tablets ER 50mg 30tab Take One Claudio Succinate ER 24HR s Tablet By Guerreroetamrida Mouth Every , Day Nicotrol 10/23 Active Inhaler 10mg 336un inhale 1 Z72.0 its cartridge Disha kay MD orally repeatedly like a cigarette 16 times per day as needed for smoking cessation Lansoprazole 09/21 Active Capsules 30mg 30cap 1 tab by K21.[address] workman mouth daily MD Disha Advair Diskus 09/20 Active Aerosol 250-50mcg 60uni inhale one Claudio /Dose ts puff by Disha mouth twice , MD a day Singulair 09/20 Active Tablets 10mg 90tab take 1 J44.9 Perla s tablet by P. mouth daily Blegen, in the M.D. evening for copd Ventolin HFA 08/10 Active Aerosol 108(90Bas 36uni Inhale 1 To Claudio e) ts 2 Puffs By [place] mcg/Act Mouth Every , 6 Hours as Needed Nebulizer, Home 05/17 Active 1unit 1 use to J44.9 Claudio s inhale Disha medications MD as directed Albuterol 05/17 Active Nebulizer (2.5mg/3M 75ml 1 treatment J44.9 Perla Sulfate /2015 L) 0.083% (1 vial) P. four times a Blegen, day as M.D. needed for wheeze Benzonatate 05/05 Active Capsules 100mg 45cap take 1 J01.90 Mally s capsules by Luiza, mouth three [employer]IC[employer] P[employer]ATOR-C times a day as needed for coughing [...] 07/28 Active Aerosol 108(90Bas 2unit 1-2 puffs e) s every 6 [place] mcg/Act hours [...] Active Tablets 137mcg 30tab Take One Claudio s Tablet By [place] Mouth Every , MD Day Lamictal Active Tablets 200mg 1 tab by Unknown /0000 mouth every night Lamotrigine 00/00 Active Tablets 200mg take one tablet by mouth once a day Doxycycline 07/31 Hx Capsules 100mg 20cap 1 take by Christian.1 Denys Hyclate s mouth [place] - capsule 2 III, 07/31 times per [facility] day for 10 days for infection Prednisone 07/31 Hx Tablets 20mg 20tab take 3 tabs J44.1 Denys s by mouth x 3 [place] - days, then 2 III, 01/16 tabs by [facility] mouth x 3 days, then 1 tab by mouth x 3 days then 1/2 tab by mouth x 4 days Doxycycline 07/31 Hx Capsules 100mg 20cap 1 take by Christian.1 Denys Monohydrate s mouth [place] - capsule 2 III, 01/16 times per [facility] day for 10 days for infection Dulera 07/13 Hx Aerosol 200-5mcg/ 13uni inhale two Act ts puffs by [place] - mouth twice , 07/13 a day as directed Symbicort 07/13 Hx Aerosol 160-4.5mc 12gm inhale 2 g/Act puffs by [place] - mouth 2 MD 01/16 times per day for chronic obstructive lung disease Prednisone 04/09 Hx Tablets 20mg 20tab take 3 tabs Susana1 s by mouth x 3 [place] - days, then 2 MD 07/06 tabs by mouth x 3 days, then 1 tab by mouth x 3 days then 1/2 tab by mouth x 4 days Doxycycline 04/09 Hx Capsules 100mg 20cap 1 take by Christian.1 Claudio Hyclate s mouth [place] - capsule 2 , 07/06 times per day for 10 days for infection Tobrex 03/26 Hx Solution 0.3% 5ml Instill 1 H10.89 drop into [place] - affected eye , 01/16 every hours for infection Protonix 02/[address] 40mg 30tab Take One Claudio s Tablet By [place] - Mouth Every , Nicotine Step 2 12/01 Hx Patches 14mg/24HR 30uni 1 daily 24HR ts every Guerreroetlupisks - morning , 03/07 Baclofen 11/30 Hx Tablets 20mg S29.012A Disha Mauro MD 11/30 Baclofen 11/30 Hx Tablets 10mg 120ta take one to S29.012A bs two tablets Disha - four times a , 07/19 day as needed Pantoprazole 09/17 Hx Solution 40mg Claudio Rec Disha Mauro MD 09/17 Dexilant 09/17 Hx Capsules 30mg 30cap Take 1 s capsule by Disha - mouth daily , 09/21 for 4 weeks for gastroesopha geal refluxdiseas e Clindamycin HCL 09/15 Hx Capsules 300mg 30cap take 1 H60.11 s capsule by Disha - mouth every , 10/23 8 hours for 10 days Protonix 09/[address] 40mg 30tab 1 by mouth Claudio s every day Disha Mauro MD 09/20 Doxycycline 06/07 Hx Tablets 100mg 20tab 1 tab by Anders Malik s mouth twice [place] - a day MD 06/23 Wyarno 06/07 Hx Tablets 5-325mg 90tab 1 tab by Claudio s mouth three [place] - times a day , 06/07 as needed Ya Ochoa 06/07 Hx Capsules 100mg 60cap take 1 J44.9 Claudio s capsule by Disha - mouth 3 , 10/23 times per day as needed for cough Clindamycin HCL 05/17 Hx Capsules 300mg 21cap take 1 H66.91 Claudio s capsule by Disha - mouth every MD 06/07 8 hours for 7 days Morphine Sulfate 05/17 Hx Tablets 15mg 60tab 1 tab by Claudio s mouth two [place] - times a day , 06/07 as needed Azithromycin 05/05 Hx Tablets 250mg 6tabs take 2 J01.90 Mally tablets Luiza, - today then 1 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[employer]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[employer]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 06/07 tablet daily for the next 4 days Zyrtec Allergy 04/14 Hx Tablets 10mg 30tab 1 by mouth Claudio s every day Guerreroetarmida - , 06/23 Magnesium Oxide 03/29 Hx Capsules 400mg 30cap 1 tab by Claudio -MG Supplement s mouth daily [place] - , 06/23 Prednisone 03/22 Hx Tablets 50mg 3tabs 1 tab by Claudio mouth daily [place] - for 3 days , 10/23 Hydrocodone 02/22 Hx Tablets 5-300mg 60tab 1 tab by Claudio Bitartrate/Aceta s mouth twice [place] minophen - a day , 03/02 Zofran 11/21 Hx Tablets 4mg 15tab 1 tab by Claudio /2015 s mouth three [place] - times a day , 03/15 nausea Gabapentin 10/19 Hx Capsules 300mg 45cap 1 tab by Claudio /2015 s mouth three [place] - times a day , 01/26 as needed. will cause sleepiness. Baclofen 09/23 Hx Tablets 10mg 120ta Take One S29.012A bs Tablet By [place] - Mouth MD Juan 11/30 Times A Day as Needed Cyclobenzaprine [...] J01.90 tablets by [place] - mouth one MD 08/22 time take one daily for 4 days Advair HFA 07/28 Hx Aerosol 115-21mcg 24uni inhale one Claudio ts puff by [place] - mouth twice , 09/20 a /2016 Flexeril 07/19 Hx Tablets 10mg 60tab 1 tab by [email or web address] Claudio s mouth three [place] - times [...] Claudio /2014 s every day Disha - MD 03/22 Magnesium 04/15 Hx Capsules 400mg 30cap 1 tab by Claudio /2014 s mouth daily Disha - MD 03/29 Trazodone HCL 04/15 Hx Tablets 100mg 2 tab by Claudio /2014 mouth every [place] - night , 10/06 Cetirizine HCL 04/15 Hx Tablets 10mg 30tab 1 by mouth Claudio /2014 s every day Disha - MD 07/19 Amitriptyline 10 Hx Tablets 25mg 30tab as needed Claudio HCL s Disha - MD 07/19 Topiramate 10 Hx Tablets 100mg 60tab once a day Claudio /2014 s Disha - MD 01/26 Clopidogrel 10 Hx Tablets 75mg 30tab 1 by mouth Claudio Bisulfate s every day Disha - MD 07/19 Quetiapine 10 Hx Tablets 400mg 30tab Claudio Fumarate s Disha Mauro MD 03/22 Omeprazole 04/15 Hx Capsules 40mg 30cap Take One Claudio s Capsule By Guerreroetderks - Mouth Every MD 09/17 Atenolol 04/15 Hx Tablets 25mg 30tab Take One Claudio s Tablet By [place] - Mouth MD Daija Nicotine 04/14 Hx Lozenges 2mg 120un 1 Dissolve Z72.0 Claudio Polacrilex its by mouth Disha Mauro lozenge 20 MD 10/06 times day for smoking cessation Albuterol 00/00 Hx Unknown Sulfate /0000 - 08/22 Albuterol HFA 00/00 Hx Unknown /0000 - 08/22 Diazepam 00/00 Hx Tablets 5mg Unknown /0000 - 03/15 Oxycodone-Acetam 00 Hx Tablets 5-325mg 60tab 1 by mouth Claudio inophen / s every 4 Guerreroetderks - hours as MD 03/15 severe pain Prednisone 00 Hx Tablets 20mg Take Two Unknown /0000 Tablets By - Mouth Every Dose Due 6 12 17 Prednisone 00/00 Hx Tablets 10mg Unknown /0000 - 03/07 Immunizations CPT Code Status Date Vaccine Lot # 49994 Given 03/07/2017 Influenza Virus Vaccine, Quadrivalent, 3 Yr > [id number] Quad, Preserv Free 80559 Given 03/15/2016 Influenza Virus Vaccine, Quadrivalent, 3 Yr > [id number] Quad, Preserv Free 45016 Given 04/14/2015 Influenza Virus Vaccine, Quadrivalent, 3 Yr > [id number] Quad, Preserv Free 93138 Given 06/18/2009 Tdap (Adacel) Vital Signs Date Vital Result Comment 03/23/2018 12:05pm Weight 234.00 lb Weight 106.142 [...] Test Result H/L Range Note Inr/Protime 01/27/2018 [facility] Inr 0.93 0.77- 1.02 [phone] Laboratory test 01/27/2018 [facility] Partial 30.1 seconds 26.0-36.3 finding [phone] Thrombo Time PTT Comp Metabolic 01/27/2018 [facility] Sodium 139 mmol/ L 135-145 Panel [phone] Potassium 3.7 mmol/L 3.5-5.0 Chloride 106 mmol/L [...] Egfr 83.4 >60 1 Laboratory test 01/27/2018 [facility] Creatine Kinase 90 U/L 10-223 finding [phone] C Reactive Protein 25.72 mg/L High <8.01 Troponin-I (TnI) 0.00 ng/mL <0.04 Lactic Acid 1.7 mmol/L 0.5-2.0 2 CBC Auto Diff 01/27/2018 [facility] White Blood 5.1 10^3/uL 3.5-10.8 [phone] Count Red Blood Count 4.96 10^6/uL 4.00-5.40 [...] Blood Cells % 0.1 Laboratory test 01/27/2018 [facility] B-Type 21 pg/ mL 3 finding [phone] Natriuretic Peptide BNP Laboratory test 01/10/2018 [facility] Pathologist ( SEE NOTE) 4 finding [phone] Review Manual 01/10/2018 [facility] Neutrophil % 70 % 38- 83 Differential [phone] Lymphocytes % 16 % Low 25-47 Monocytes % 11 % High 0-7 Eosinophils % 0 % 0-6 Basophil % 0 % 0-2 Variant Lymph % 3 % 0-6 Abs Neutrophils 4.2 10^3/uL 1.5-7.7 Abs Lymphocytes 1.0 10^3/uL 1.0-4.8 Abs Monocytes 0.7 10^3/uL 0-0.8 Abs Eosinophils 0 10^3/uL 0-0.6 Abs Basophils 0 10^3/uL 0-0.2 RBC Morphology Normal Normal Laboratory test 01/10/2018 [facility] Lactic Acid 1.4 mmol/L 0.5-2.0 5 finding [phone] CBC Auto Diff 01/10/2018 [facility] White Blood 6.0 10^3/uL 3.5-10.8 [phone] Count Red Blood Count 4.88 10^6/uL 4.00-5.40 [...] Basophils 0.1 10^3/uL 0-0.2 Laboratory test 01/10/2018 [facility] Troponin-I (TnI ) 0.01 ng/mL <0.04 finding [phone] Comp Metabolic 01/10/2018 [facility] Sodium 140 mmol/ L 135-145 Panel [phone] Potassium 4.1 mmol/L 3.5-5.0 Chloride 105 mmol/L [...] Egfr 85.6 >60 6 Laboratory test 01/10/2018 [facility] Troponin-I 0.00 ng/mL <0.04 finding [phone] (TnI) Arterial Blood 02/10/2017 [facility] PH Arterial 7.39 7.35-7.45 Gas [phone] Pco2 Arterial 42 mmHg 35-45 Po2 Arterial 68 mmHg Low 80-100 O2 Saturation Arterial 96.4 % 95-98 Base Excess Arterial 0.3 -2.0-2.0 7 Hco3 Arterial 24.9 mmol/L 19-31 Laboratory test 02/10/2017 [facility] Lactic Acid 1.6 mmol/L 0.5-2.0 8 finding [phone] Laboratory test 01/04/2017 [facility] Troponin-I 0.00 ng/mL <0.04 finding [phone] (TnI) B-Type Natriuretic Peptide BNP 30 pg/mL 9 Blood Culture SEE RESULT BELOW 10 Comp Metabolic Panel 01/04/2017 [facility] Sodium 135 mmol/L 133-145 [phone] Potassium 3.8 mmol/L 3.5-5.0 Chloride 105 mmol/L [...] Egfr 99.2 >60 11 Laboratory test 01/04/2017 [facility] Partial 28.3 seconds 26.0-36.3 finding [phone] Thrombo Time PTT D Dimer Quantitative < 200 ng/mL Less Than 230 12 Inr/Protime 01/04/2017 [facility] Inr 0.92 0.89- 1.11 [phone] CBC Auto Diff 01/04/2017 [facility] White Blood 5.9 10^3/uL 3.5-10.8 [phone] Count Red Blood Count 4.77 10^6/uL 4.0-5.4 [...] Blood Cells % 0.3 Laboratory test 11/24/2016 [facility] Troponin-I (TnI ) 0.01 ng/mL <0.04 finding [phone] Lactic Acid 2.0 mmol/L 0.5-2.0 13 B-Type Natriuretic Peptide BNP 21 pg/mL 14 C Reactive Protein 61.01 mg/L High < 5.00 15 Blood Culture SEE RESULT BELOW 16 Comp Metabolic Panel 11/24/2016 [facility] Sodium 133 mmol/L 133-145 [phone] Potassium 4.2 mmol/L 3.5-5.0 Chloride 100 mmol/L [...] 87.9 >60 17 CBC Auto Diff 11/24/2016 [facility] White Blood 7.1 10^3/uL 3.5-10.8 [phone] Count Red Blood Count 5.10 10^6/uL 4.0-5.4 [...] Count 5.7 10^3/ul 3.5-10.8 Lipid Profile 10/23/2016 [facility] Triglycerides 125 mg/dL 18 (Trig/Chol/HDL) [phone] Cholesterol 164 mg/dL 19 HDL Cholesterol 31.7 mg/dL 20 LDL Cholesterol 107 mg/dL 21 Laboratory test 10/23/2016 [facility] Hemoglobin A1c 5.8 % Less than 22 finding [phone] (Glyco HGB) 6.0 CBC Auto Diff 10/23/2016 [facility] White Blood 5.7 3.5-10.8 [phone] Count 10^3/uL Red Blood Count 5.06 10^6/uL [...] Blood Cells % 0.2 Laboratory test 07/26/2016 [facility] Body Fluid SEE RESULT 23, 24 finding [phone] Cult & Gram BELOW Stain Afb Profile SEE RESULT BELOW 25 Laboratory test 07/26/2016 [facility] Fungal Cult - SEE RESULT 26 finding [phone] Other Sources BELOW Laboratory test 07/26/2016 [facility] Fungal Cult - SEE RESULT 27 finding [phone] Other Sources BELOW Laboratory test 07/26/2016 [facility] Mycobacterial See Comment 28 finding [phone] Culture Laboratory test 07/15/2016 [facility] Inr 0.99 0.89- finding [phone] 1.11 Partial Thrombo Time PTT 30.2 seconds 26.0-36.3 Comp Metabolic Panel 07/15/2016 [facility] Sodium 137 mmol/L 133-145 [phone] Potassium 3.5 mmol/L 3.5-5.0 Chloride 105 mmol/L [...] 101.2 >60 29 CBC Auto Diff 07/15/2016 [facility] White Blood 5.3 10^3/uL 3.5-10.8 [phone] Count Red Blood Count 4.83 10^6/uL 4.0-5.4 [...] 5.3 10^3/ul 3.5-10.8 Comp Metabolic Panel 06/23/2016 [facility] Sodium 136 mmol/L 133-145 [phone] Potassium 4.1 mmol/L 3.5-5.0 Chloride 103 mmol/L [...] Egfr 85.0 >60 30 Laboratory test 06/23/2016 [facility] Free T4 (Free 0.85 0.61-1.12 31 finding [phone] Thyroxine) ng/dL Laboratory test 06/23/2016 [facility] TSH (Thyroid 6.73 High 0.34-5.60 32 finding [phone] Stim Horm) mcIU/mL CBC Auto Diff 06/23/2016 [facility] White Blood 5.6 3.5-10.8 [phone] Count 10^3/uL Red Blood Count 4.75 10^6/uL [...] Blood Cells % 0.1 Laboratory test 03/15/2016 [facility] Free T4 (Free 0.72 ng/dL 0.61-1.12 33 finding [phone] Thyroxine) T3 Total 1.04 ng/mL 0.87-1.78 34 TSH (Thyroid Stim Horm) 10.86 mcIU/mL High 0.34-5.60 35 CBC Auto Diff 03/15/2016 [facility] White Blood 6.3 10^3/uL 3.5-10.8 [phone] Count Red Blood Count 4.85 10^6/uL 4.0-5.4 [...] Blood Cells % 0 Laboratory test 11/23/2015 [facility] Magnesium 2.3 mg/dL 1.9-2.7 finding [phone] Creatine Kinase 65 U/L 10-223 Troponin I 0.00 ng/mL <0.03 36 TSH (Thyroid Stimulating Horm) 4.07 ?IU/mL 0.34-5.60 Comp Metabolic Panel 11/23/2015 [facility] Sodium 139 mmol/L 133-145 [phone] Potassium 3.7 mmol/L 3.5-5.0 Chloride 105 mmol/L [...] 93.1 >60 37 CBC Auto Diff 11/23/2015 [facility] White Blood 3.5 10^3/uL 3.5-10.8 [phone] Count Red Blood Count 4.55 10^6/uL 4.0-5.4 [...] Blood Cells % 0.1 Laboratory test 11/23/2015 [facility] Urine Culture SEE RESULT 38 finding [phone] BELOW Urinalysis Profile 11/23/2015 [facility] Urine Color Yellow [phone] Urine Appearance Turbid Urine Specific [place] 1.016 1.010-1.030 Urine pH 7.0 5-9 Urine [...] Urine Yeast Present Absent Laboratory test 11/23/2015 [facility] Troponin I 0.00 <0.03 39, 40 finding [phone] ng/mL CBC Auto Diff 11/08/2015 [facility] White Blood 4.0 3.5-10.8 [phone] Count 10^3/uL Red Blood Count 4.71 10^6/uL [...] Blood Cells % 0.1 Urinalysis Profile 11/04/2015 [facility] Urine Color Yellow [phone] Urine Appearance Cloudy Urine Specific [place] 1.010 1.010-1.030 Urine pH 7.0 5-9 Urine Urobilinogen Negative Negative Urine Ketones Negative Negative Urine Protein Negative Negative Urine Leukocytes 2+ Negative Urine Blood Negative Negative Urine Nitrite Negative Negative Urine Bilirubin Negative Negative Urine Glucose Negative Negative Urine White Blood Cell Trace(0-5/hpf) Absent Urine Red Blood Cell Absent Absent Urine Bacteria Absent Absent Urine Squamous Epithelial Cell Present Absent Laboratory test 11/04/2015 [facility] Urine Culture SEE RESULT 41 finding [phone] BELOW Inr/Protime 11/04/2015 [facility] Inr 0.88 Low 0.89 -9 [phone] .11 Comp Metabolic 11/04/2015 [facility] Sodium 137 mmol/ L 133-14 Panel [phone] Potassium 4.5 mmol/L 3.5-5.0 Chloride 105 [...] Egfr 97.0 >60 42 Laboratory test 11/04/2015 [facility] HCG < 0.60 43 finding [phone] mIU/mL CBC Auto Diff 08/15/2015 [facility] White Blood 2.7 10^3/uL Low 3.5-8 [phone] Count 0.8 Red Blood Count 4.81 10^6/uL [...] Blood Cells % 0.1 Laboratory test 08/15/2015 [facility] Lactic Acid 0.9 mmol/L 0.5-2.0 44 finding [phone] Inr/Protime 08/15/2015 [facility] Inr 1.07 0.89- 1.11 [phone] Laboratory test 08/15/2015 [facility] Partial 35.8 seconds 26.0-36.3 finding [phone] Thrombo Time PTT B-Type Natriuretic Peptide BNP 10 pg/mL 45 Comp Metabolic Panel 08/15/2015 [facility] Sodium 135 mmol/L 133-145 [phone] Potassium 3.7 mmol/L 3.5-5.0 Chloride 110 mmol/L [...] Egfr 101.7 >60 46 Laboratory test 08/15/2015 [facility] Magnesium 2.1 mg/dL 1.9-2.7 finding [phone] Lipase 25 U/L 11.0-82.0 Creatine Kinase 53 U/L 10-223 C Reactive Protein 17.16 mg/L High < 5.00 47 Troponin I 0.00 ng/mL <0.03 48 CKMB 08/15/2015 [facility] CKMB ng/mL 1.7 ng/mL 0.6-6.3 [phone] Laboratory test 08/15/2015 [facility] TSH (Thyroid 4.07 0.34-5.60 finding [phone] Stimulating Horm) ?IU/mL Lipid Profile 07/19/2015 [facility] Triglycerides 158 mg/dL 49 (Trig/Chol/HDL) [phone] Cholesterol 177 mg/dL 50 HDL Cholesterol 33.5 mg/dL 51 LDL Cholesterol 112 mg/dL 52 Laboratory test 07/19/2015 [facility] Hemoglobin A1c 5.4 % Less than 53 finding [phone] (Glyco HGB) 6.0 CBC Auto Diff 07/19/2015 [facility] White Blood 4.0 3.5-10.8 [phone] Count 10^3/uL Red Blood Count 4.75 10^6/uL [...] Cells % 0.2 Comp Metabolic Panel 07/19/2015 [facility] Sodium 136 mmol/L 133-145 [phone] Potassium 4.6 mmol/L 3.5-5.0 Chloride 107 mmol/L [...] 5 Kidney failure <15 (or dialysis) 2 [facility] Severe Sepsis and Septic Shock Management Bundle Measure requires all lactic acids initially measuring >2.0 mmol/L be repeated. 3 >100 to <200 pg/mL: likely compensated congestive heart failure (CHF) 200 to 400 pg/mL: likely moderate CHF >400 pg/mL: likely moderate to severe CHF 4 Mild monocytosis favor reactive. Reviewed by Dr. Andrews 5 [facility] Severe Sepsis and Septic Shock Management [...] Reference ranges based on room air. 8 [facility] Severe Sepsis and Septic Shock Management Bundle Measure requires all lactic acids initially measuring >2.0 mmol/L be repeated. 9 >100 to <200 pg/mL: likely compensated congestive heart failure (CHF) 200 to 400 pg/mL: likely moderate CHF >400 pg/mL: likely moderate to severe CHF 10 SEE RESULT BELOW Name: ALYSIA ADEN : [address]: Jorge Mendoza MD Acct: [id number] Unit: [id number] AGE: 41 Location: ED Re01/03/17 SEX: F Status: DEP ER SPEC: [id number] YOANA: 01/04/[address]: Jorge Mendoza MD REQ: [id number] RECD: 01/04/17 STATUS: COMP OTHR DR: Claudio Gauthier MD _ SOURCE: BLOOD,VENO SPDESC: ORDERED: Blood Cult COMMENTS: Patient is On Antibiotics? NO Procedure Result Reported Site Aerobic Culture Bottle Final 01/09/17- 0151 ML No Growth Day 5 Anaerobic Culture Bottle Final 01/09/17- 0151 ML No Growth Day 5 * ML - MAIN LAB ([facility]) . END OF REPORT * ML=Testing performed at Main Lab DEPARTMENT OF PATHOLOGY, [address] [place] [address] John Andrews M.D. Director [facility] # [id number] 11 Because ethnic data is not always [...] - FDP greater than 20 ug/ml 13 [facility] Severe Sepsis and Septic Shock Management Bundle Measure requires all lactic acids initially measuring >2.0 mmol/L be repeated. 14 >100 to <200 pg/mL: likely compensated congestive heart failure (CHF) 200 to 400 pg/mL: likely moderate CHF >400 pg/mL: likely moderate to severe CHF 15 Acute inflammation: >10.00 16 SEE RESULT BELOW Name: ALYSIA ADEN : [address]: Nahun Ferguson MD Acct: [id number] Unit: [id number] AGE: 41 Location: [place] [address] Re11/25/16 Dis: 11/26/16 SEX: F Status: DIS IN SPEC: [id number] YOANA: 11/24/[address] [facility] [address]: Flaquito Coto DO REQ: [id number] RECD: 11/24/16 STATUS: AALIYAH JEWELL DR: Claudio Gauthier MD _ SOURCE: BLOOD,VENO SPDESC: ORDERED: Blood Cult Procedure Result Reported Site Aerobic Culture Bottle Final 11/29/16- 8 ML No Growth Day 5 Anaerobic Culture Bottle Final 11/29/16- 2208 ML No Growth Day 5 * ML - MAIN LAB ([facility]) . END OF REPORT * ML=Testing performed at Main Lab DEPARTMENT OF PATHOLOGY, [address] [place] [address] John Andrews M.D. Director [facility] # [id number] 17 Because ethnic data is not always [...] and in selective patients <6.0%.Please refer to [place] [employer] Diabetic care guidelines for further information. 23 LEFT UPPER LOBE LAVAGE: LUNG NODULES, LEFT UPPER LOBE 24 SEE RESULT BELOW Name: ALYSIA ADEN : [address]: Janette Sebastian MD Acct: [id number] Unit: [id number] AGE: 40 Location: [place] Re07/26/16 SEX: F Status: DEP SDC SPEC: [id number] YOANA: 07/26/16-[address] [facility] [address]: Janette Sebastian MD REQ: [id number] RECD: 07/26/16 STATUS: AALIYAH JEWELL DR: Claudio Gauthier MD _ SOURCE: BODY FLUID SPDESC:BRONCH WAS ORDERED: BF Rekha/GS COMMENTS: LEFT UPPER LOBE LAVAGE: LUNG NODULES, LEFT UPPER LOBE Procedure Result Reported Site Body Fluid Gram Stain Final 07/26/16- 1352 ML 4+ Neutrophils 1+ Epithelial Cells 1+ Gram Positive Cocci Preparation By Cytospin Smear Body Fluid Culture Final 07/30/16- 0757 ML Organism 1 NORMAL ALEXANDER Quantity 1+ * ML - MAIN LAB ([facility]) . END OF REPORT * ML=Testing performed at Main Lab DEPARTMENT OF PATHOLOGY, [address] [place] [address] John Andrews M.D. Director [facility] # [id number] 25 SEE RESULT BELOW Name: ALYSIA ADEN : [address]: Janette Sebastian MD Acct: [id number] Unit: [id number] AGE: 40 Location: OR Re07/26/16 SEX: F Status: REG PRC SPEC: [id number] YOANA: 07/26/16-[address] [facility] [address]: Janette Sebastian MD REQ: [id number] RECD: 07/26/16 STATUS: RES OTHR DR: Claudio [...] for diagnosis. * ML - MAIN LAB ([facility]) . END OF REPORT * ML=Testing performed at Main Lab DEPARTMENT OF PATHOLOGY, [address] [place] [address] John Andrews M.D. Director [facility] # [id number] 26 SEE RESULT BELOW Name: ALYSIA ADEN : [address]: Janette Sebastian MD Acct: [id number] Unit: [id number] AGE: 40 Location: OR Re07/26/16 SEX: F Status: DEP SDC SPEC: [id number] YOANA: 07/26/16-1252 [facility] DR: Janette Sebastian MD REQ: [id number] RECD: 07/26/16 STATUS: RES OTHR DR: Claudio [...] performed at Main Lab DEPARTMENT OF PATHOLOGY, [address] [place] [address] John Andrews M.D. Director [facility] # [id number] 27 SEE RESULT BELOW Name: ALYSIA ADEN : [address]: Janette Sebastian MD Acct: [id number] Unit: [id number] AGE: 40 Location: OR Re07/26/16 SEX: F Status: NATALIE NYE SPEC: [id number] YOANA: 07/26/16-[address]: Janette Sebastian MD REQ: [id number] RECD: 07/26/16 STATUS: COMP OTHR DR: Claudio [...] performed at Main Lab DEPARTMENT OF PATHOLOGY, [address] [place] [address] John Andrews M.D. Director [facility] # [id number] 28 SOURCE: BRONCHOALVEOLAR LAVAGE, LEFT UPPER LOBE LAVAGE MYCOBACTERIAL CULTURE FINAL No growth after 60 days of incubation. Test Performed by: [address] [address] 29 Because ethnic data is not always [...] 5 Kidney failure <15 (or dialysis) 31 [id number] 32 [id number] 33 [id number] 34 [id number] 36 Reference Range and Interpretation: TnI (ng/mL) Interpretation Less Than 0.03 ng/mL Not supportive of diagnosis of LA 0.03 - 0.50 ng/mL Indeterminate: suggest serial studies if clinically indicated. Greater than 0.5 ng/mL Consistent with diagnosis of LA 37 Because ethnic data is not always [...] [address]: Manuela Lopez MD Acct: [id number] Unit: [id number] AGE: 40 Location: ED Re11/23/15 SEX: F Status: DEP ER SPEC: [id number] YOANA: 11/23/[address]: Manuela Lopez MD REQ: [id number] RECD: 11/23/15 STATUS: AALIYAH JEWELL DR: Claudio Gauthier MD _ SOURCE: URINE SPDESC: ORDERED: Urine Culture Procedure Result Reported Site Urine Culture Final 11/25/15- 806 ML No growth of clinically significant organisms * ML - MAIN LAB ([facility]) . END OF REPORT * ML=Testing performed at Main Lab DEPARTMENT OF PATHOLOGY, [address] [place] [address] John Andrews M.D. Director [facility] # [id number] 39 Comment: 23:30 please 40 Reference Range and Interpretation: TnI (ng/mL) Interpretation Less Than 0.03 ng/mL Not supportive of diagnosis of LA 0.03 - 0.50 ng/mL Indeterminate: suggest serial studies if clinically indicated. Greater than 0.5 ng/mL Consistent with diagnosis of LA 41 SEE RESULT BELOW Name: ALYSIA ADEN : [address]: Claudio Gauthier MD Acct: [id number] Unit: [id number] AGE: 40 Location: [facility] Re11/04/15 SEX: F Status: REG REF SPEC: [id number] YOANA: 11/04/15-[address]: Claudio Gauthier MD REQ: [id number] RECD: 11/04/15 STATUS: COMP _ SOURCE: URINE SPDESC: ORDERED: Urine Culture Procedure Result Reported Site Urine Culture Final 11/06/15- 0901 ML Organism 1 KLEBSIELLA PNEUMONIAE [place] Count 10-25,000 (Moderate) CFU/ML Organism 2 NORMAL ALEXANDER [place] Count 10-25,000 (Moderate) CFU/ML 1. KLEBSIELLA PNEUMONIAE [...] antibiotic reporting. * ML - MAIN LAB ([facility]) . END OF REPORT * ML=Testing performed at Main Lab DEPARTMENT OF PATHOLOGY, [address] [place] [address] John Andrews M.D. Director [facility] # [id number] 40 Because ethnic data is not always [...] levels of up to 20 mIU/mL 44 [facility] Severe Sepsis and Septic Shock Management [...] 0.03 ng/mL Not supportive of diagnosis of LA 0.03 - 0.50 ng/mL Indeterminate: suggest serial studies if clinically indicated. Greater than 0.5 ng/mL Consistent with diagnosis of LA 49 Desirable <150 Borderline high 150-199 High [...] and in selective patients <6.0%.Please refer to [place] [employer] Diabetic care guidelines for further [...] dialysis) Procedures Date Code Description Status 01/16/2018 85880 Nebulizer Treatment Completed 07/31/2017 32280 Nebulizer Treatment Completed 09/20/2016 40302 Spirometry Completed 06/23/2016 83077 EKG, at Least 12 Leads w/Interpretation and Report Completed 11/04/2015 45833 EKG, at Least 12 Leads w/Interpretation and Report Completed Encounters Type Date Location Provider Dx Diagnosis Office Visit 01/16/2018 Main Office Claudio Gauthier MD R07.89 Other chest pain 11:00a J44.1 Chronic obstructive pulmonary disease w (acute) exacerbation Office Visit 12/21/2017 8:45a Main Office Claudio M54.5 Low back pain MD Disha Office Visit 12/01/2017 9:45a Main Office Marah Lockett S93.601A Unspecified sprain Storm, DUPLICATOR PUNCH OPERATOR-C of right foot, initial encounter Office Visit 07/31/2017 10:30a Main Office Denys Dalal J44.1 Chronic III, DUPLICATOR PUNCH OPERATOR-C obstructive pulmonary disease w (acute) exacerbation Office Visit 07/06/2017 8:45a Main Office Claudio J44.1 Chronic MD Disha obstructive pulmonary disease w (acute) exacerbation L40.0 Psoriasis vulgaris Office Visit 06/07/2017 11:00a Main Office Claudiomarkus Gauthier, L40.0 Psoriasis vulgaris I88.1 Chronic lymphadenitis, except [...] Office Visit 10/23/2016 8:00a Main Office Claudio Gauthier, Z00.8 Encounter for other general examination J44.9 Chronic obstructive pulmonary disease, unspecified E03.9 Hypothyroidism, unspecified M54.5 Low back pain E66.3 Overweight Z72.0 Tobacco use I60.9 Nontraumatic subarachnoid hemorrhage, unspecified Office Visit 09/20/2016 10:30a Main Office Claudio Gauthier J44.9 Chronic MD obstructive pulmonary disease, unspecified Office Visit 09/15/2016 3:15p Main Office Claudio Gauthier H60.11 Cellulitis of right external ear Office Visit 08/24/2016 9:45a Main Office Claudio Gautheir E03.9 Hypothyroidism, unspecified J44.9 Chronic obstructive pulmonary disease, unspecified M54.5 Low back pain Office Visit 06/23/2016 1:15p Main Office Claudio Gauthier, R91.8 Other nonspecific MD abnormal finding of lung field J44.9 Chronic obstructive pulmonary disease, unspecified M54.5 Low back pain R07.89 Other chest pain Office Visit 06/07/2016 3:30p Main Office Claudio Gauthier, J44.9 Chronic MD obstructive pulmonary disease, unspecified M54.5 Low back pain H66.91 Otitis media, unspecified, right ear Office Visit 05/17/2016 4:15p Main Office Claudio Gauthier, H66.91 Otitis media, MD unspecified, right ear J44.9 Chronic obstructive pulmonary disease, unspecified M54.5 Low back pain Office Visit 05/05/2016 Main Office Mally Jarrett, J01.90 Acute sinusitis , 4:30p DUPLICATOR PUNCH OPERATOR-C unspecified Office Visit 03/22/2016 Main Office Claudio T43.595A Adverse effect of 8:45a MD Disha oth antipsychotics and neuroleptics, init Office Visit [...] Office Claudio Gauthier M54.5 Low back pain MD Office Visit 11/04/2015 10:15a Main Office Claudio Gauthier I67.1 Cerebral MD aneurysm, nonruptured Office Visit 10/07/2015 9:45a Main Office Claudio Gauthier, S29.012A Strain of muscle MD and tendon of back wall of thorax, init Office Visit 09/24/2015 9:45a Main Office Claudio Gauthier, S29.012A Strain of muscle MD and tendon of back wall of thorax, init Office Visit 09/17/2015 9:15a Main Office Claudio Gauthier M54.5 Low back pain F25.0 Schizoaffective disorder, bipolar type Office Visit 09/03/2015 9:30a Main Office Claudio Gauthier M54.5 Low back pain Office Visit 08/23/2015 9:00a Main Office Claudio Gauthier, S29.001A Unsp injury of msl/tnd of front [...] 9:00a Main Office Claudio Gauthier F17.213 Nicotine dependence, cigarettes, with withdrawal M54.5 Low back pain I60.9 Nontraumatic subarachnoid hemorrhage, unspecified Office Visit 04/14/2015 9:15a Main Office Claudio Gauthier MD Z72.0 Tobacco use M54.5 Low back pain I10 Essential (primary) hypertension I60.9 Nontraumatic subarachnoid hemorrhage, unspecified Z23 Encounter for immunization Plan of Treatment Future Appointment(s):03/25/2018 10:00 am - Claudio Gauthier MD at Main [facility]7803/23/2018 - Perla Vasquez M.D.J44.1 Chronic obstructive pulmonary disease with (acute) exacerbatNew Medication:Prednisone 20 mg - take 3 tabs by mouth x 3 days, then 2 tabs by mouth x 3 days, then 1 tab by mouthx 3 days then 1/2 tab by mouth x 4 daysComments:COPD EXACERBATION. PT ACTUALLY LOOKS WELL, TALKATIVE AND NOT SOB. THOUGH SATS INITIALLY PRETTY LOW AT 86% (NOT UNUSUAL FOR HER WITH HER EXACERBATIONS), UP TO 90% AFTER NEB. DISCUSSED IF WORSENING THIS WEEKEND, TO GO TO ER- PT AND PARTNER AGREE. OTHERWISE SHE WILL F/U SUNDAY WITH DR. GAUTHIER. DISCUSSED TREATMENT IN DETAIL BELOW. POSSIBLE TRIGGER SEASONAL ALLERGIES. TO RESUME THE MONTELUKAST, START PREDNISONE TODAY JACQUELIN- TOLERATES WELL- DISCUSSED PROPER USE, START DOXYCYCLINE- DISCUSSED MED BELOW , PRECAUTIONS. CONTINUE ALBUTEROL PRN. DISCUSSED SPRIVA- MED, ACTION, SIDE EFFECTS. PT USED PROPERLY IN OFFICE AFTER I PRIMED THE SAMPLE. SAMPLE GIVEN- OK TO STOP MED IF PROBLEMS. HAS BEEN OFF ADVAIRFOR A FEW MONTHS- SHE IS NOT SURE IF IT HELPED BUT ALSO SAYS SHE MAY NOT HAVE BEEN TAKING IT REGULARLY. CONSIDER RESTART IN FUTURE, F/U WITH DR. GAUTHIER.WE DISCUSSED HOW MED WORKS, WHY IT CAN BE HELPFUL. GIVEN ACUTE ILLNESS AND STARTING PREDNISONE, WILL WAIT ON FLU VACCINE BUT SHE AGREES TO FLU VACCINE WHEN IMPROVED.Follow up:. RECHECK VISIT DR. GAUTHIER SUNDAY- COPDRecommendations:-- YOU HAVE SIGNS OF EXACERBATION OF YOUR COPD -- START THE PREDNISONE 20 MG - WITH FOOD- take 3 tabs by mouth x 3 days, then 2 tabs by mouth x 3 days, then 1 tab by mouth x 3 days then 1/2 tab by mouth x 3 days then stop the medicine -- RESTART THE MONTELUKAST/ SINGULAIR 10 MG ONCE PER DAY AT NIGHT/ BEDTIME- THIS HELPS WITH ASTHMA SYMPTOMS AND ALLERGY NOSE SYMPTOMS- I SENT THE RX TO [facility] -- ADD IN THE SPIRIVA INHALER ( THE SAMPLE I GAVE YOU) - 2 PUFFS ONCE PER DAY- START SUNDAY EVENING SINCE YOU ALREADY DID DOSE TODAY -- LISTEN TO YOUR WHEN HE MAKES RECOMMENDATIONS FOR YOUR TREATMENTOR ER EVALUATION-- IF WORSENING THIS WEEKEND, GO TO ER -- TAKE THE DOXYCYCLINE ANTIBIOTIC WITH FULLGLASS OF WATER TWICE PER DAY FOR 10 DAYS. DO NOT LIE DOWN DIRECTLY AFTER TAKING IT -- DO NOT TAKE CALCIUM PRODUCTS (DAIRY PRODUCTS, YOGURT/MILK/ ALMOND MILK) OR CALCIUM SUPPLEMENTS WITHIN 2 HOURS OF TAKING THE DOXYCYCLINE THEY INTERFERE WITH ABSORPTION -- IT CAN CAUSE STOMACH UPSET- IT IS OKAY TOTAKE DOXYCYCLINE WITH FOOD/ LIGHT MEAL -- DOXYCYCLINE ALSO CAUSES SUN SENSITIVITY- BE CAREFUL TO AVOID DIRECT SUN EXPOSURE - COVER UP OR AVOID THE SUN WHILE ON THIS MEDICATION -- CONTINUE TO WORK ON CUTTING DOWN ON SMOKING- YOU ARE DOING WELL -- YOU CAN CONTINUE TO USE THE ALBUTEROL NEBULIZER OR ALBUTEROL INHALER EVERY 4 HOURS NEEDED FOR COUGH/ WHEEZING/ SHORTNESS OF BREATH -- OUT OF WORK FOR 2DAYS, FOLLOW-UP WITH DR. GAUTHIER SUNDAY
[2018-04-01 12:59] VITALS: BP 134/83
--- NOTE | 2018-04-01 15:25 | RAD ---
Indication: Shortness of breath. 2 views of the chest including dual energy PA views demonstrate no mediastinal shift. Heart is of normal size and configuration. Lung hatch are clear. IMPRESSION: No active cardiopulmonary disease is noted.
--- NOTE | 2018-04-02 08:28 | UC ---
- Progress Note Progress Note: Patient Name: LAURIE RIVERO Medical Record#: [id number] Ordering Physician: Corie CAMERON Acct.#: [id number] : 1975 Age: 42 Sex: F Location: [facility] Exam Date: 04/01/18 1451 ADM Status: REG ER Order Information: CHEST PA & LAT 2 VWS Accession Number: [id number] CPT: 30033 Indication: Shortness of breath. 2 views of the chest including dual energy PA views demonstrate no mediastinal shift. Heart is of normal size and configuration. Lung hatch are clear. IMPRESSION: No active cardiopulmonary disease is noted. <Electronically signed by Janae Novoa MD in OV> 04/01/18 1522 Dictated By: Janae Novoa MD Dictated Date/Time: 04/01/18 1522 Transcribed Date/Time: 04/01/18 152 Copy to: CC:Claudio Gauthier MD; Corei CAMERON; Joseph Mario MD Imaging - [facility] Imaging - [facility] [place] [address] [address] ph ([phone]) ph ([phone]) ph ([phone]) This report is only to be considered final once signed by the Provider(s) as displayed in the "<Electronically Signed by >" field (s). Absence of a signature indicates the report is in a draft status and still needs to be finalized. In the event this document was created by someone other than the signing Provider, the individual initiating the document will be listed in the "Entered by:" or "Dictated by:" hatch. 1 of 1 Discharge - Sign-Out/Discharge Documenting (check all that apply): Post-Discharge Follow Up All imaging exams completed and their final reports reviewed: Yes - Discharge Plan Condition: Good Disposition: HOME Prescriptions: Azithromyxin SALVADOR (NF) [Z-Salvador (Zithromax) 250 mg tabs #6] 2 tab PO .TODAY, THEN 1 DAILY #6 tab methylPREDNISolone [Medrol Dosepak 4 MG*] 0 mg PO .SEE SALVADOR INSTRUCTION #1 salvador Patient Education Materials: Sinusitis (ED) Forms: *Work Release Referrals: Claudio Gauthier MD [Primary Care Provider] - Additional Instructions: - Medrol dose pack as prescribed - Z-pac. Stop doxycycline - Increase fluids - Albuterol inhaler as prescribed as needed. - Billing Disposition and Condition Condition: GOOD Disposition: Home
--- NOTE | 2018-04-02 22:12 | UC ---
FLU HPI - HPI Summary HPI Summary: 42 y/o female w/ complaints of lower back pain with cough, dx'd with pna from primary physician treated with doxycycline, steroids without benefit for 8 days. no fever, + chills. PMH + for bipolare, anxiety, HTn, hypothyroid. + chest tightness using steroid inhaler 3-4 times a day - History of Current Complaint Chief Complaint: UCRespiratory Stated Complaint: SORE THROAT, AND CHEST CONGESTION Time Seen by Provider: 04/01/18 14:39 Hx Obtained From: Patient Hx Last Menstrual Period: 5 yrs ago ?: No Onset/Duration: Sudden Onset Pain Intensity: 7 Pain Scale Used: 0-10 Numeric - Allergy/Home Medications Allergies/Adverse Reactions: Allergies Allergy/AdvReac Type Severity Reaction Status Date / Time amoxicillin Allergy Severe Anaphylatic Verified 04/01/18 12:59 Shock clavulanic acid Allergy Severe Anaphylatic Verified 04/01/18 12:59 [From Augmentin] Shock strawberry Allergy Severe Swelling Verified 04/01/18 12:59 Of Face,Lips,& Throat phenytoin [From Dilantin] Allergy Shortness Verified 04/01/18 12:59 of Breath sweet potatoe pie Allergy Severe Swelling Uncoded 04/01/18 12:59 Of Face,Lips,& Throat Home Medications: Home Medications DOXYcycline CAP(*) [DOXYcycline 100MG CAP(*)] 100 mg PO BID 04/01/18 [History Confirmed 04/01/18] PMH/Surg Hx/FS Hx/Imm Hx Previously Healthy: No - HTN Endocrine History: Thyroid Disease Other History Of: Anticoagulant Therapy - ASA daily - Surgical History Surgical History: Yes Surgery Procedure, Year, and Place: C [id number] REMOVED-TUBAL LIGATION-APPENDIX 08/15/14. BRAIN ANEURYSM-STENTS/COIL [facility] 06/01/16 -1.5 ONLY. BRONCHOSCOPY WITH TRANSBRONCHIAL BIOPSY 07/26/16 - Family History Known Family History: Positive: Cardiac Disease Family History: Positive fhx of CAD - Social History Alcohol Use: None Substance Use Type: None Smoking Status (MU): Heavy Every Day Tobacco Smoker Type: Cigarettes Amount Used/How Often: 8 cigarettes a day recently---but usually 2ppd for 30 years Length of Time of Smoking/Using Tobacco: 20+ years Have You Smoked in the Last Year: Yes Household Exposure Type: Cigarettes - Immunization History Most Recent Influenza Vaccination: 2014 Most Recent Tetanus Shot: up to date Most Recent Pneumonia Vaccination: 2014 Review of Systems Constitutional: Fever, Chills, Fatigue Respiratory: Shortness Of Breath, Cough Is Patient Immunocompromised?: No All Other Systems Reviewed And Are Negative: Yes Physical Exam Triage Information Reviewed: Yes Appearance: No Pain Distress, Well-Nourished, Ill-Appearing - mild Vital Signs: Initial Vital Signs Temp 97.7 F 04/01/18 12:55 Pulse 108 04/01/18 12:55 Resp 18 04/01/18 12:55 BP 134/83 04/01/18 12:55 Pulse Ox 87 04/01/18 12:55 Vital Signs Reviewed: Yes Eyes: Positive: Conjunctiva Clear Neck: Positive: Supple, Nontender, Enlarged Nodes @ - mild under submand Respiratory: Positive: Chest non-tender, Lungs clear, Crackles, Wheezing, Other : - L LL- crackles no wheezing, clears with coughing Cardiovascular: Positive: RRR, No Murmur Flu Course/Dx - Course Course Of Treatment: - Medrol dose pack as prescribed. - Z-pac. Stop doxycycline. - Increase fluids. - Albuterol inhaler as prescribed as needed. - Differential Dx/Diagnosis Provider Diagnoses: sinusitis Discharge - Sign-Out/Discharge Documenting (check all that apply): Patient Departure All imaging exams completed and their final reports reviewed: Yes - Discharge Plan Condition: Good Disposition: HOME Prescriptions: Azithromyxin BELINDA (NF) [Z-Belinda (Zithromax) 250 mg tabs #6] 2 tab PO .TODAY, THEN 1 DAILY #6 tab methylPREDNISolone [Medrol Dosepak 4 MG*] 0 mg PO .SEE BELINDA INSTRUCTION #1 belinda Patient Education Materials: Sinusitis (ED) Forms: *Work Release Referrals: Claudio Gauthier MD [Primary Care Provider] - Additional Instructions: - Medrol dose pack as prescribed - Z-pac. Stop doxycycline - Increase fluids - Albuterol inhaler as prescribed as needed. - Billing Disposition and Condition Condition: GOOD Disposition: Home
== END 2018-04-01 15:45 | disposition home or self-care (01) ==
LOC: UCEAST 12:31
DX: J32.9 Chronic sinusitis, unspecified (principal); M54.5 Low back pain; R06.02 Shortness of breath; Z79.82 Long term (current) use of aspirin; Z88.1 Allergy status to other antibiotic agents; Z88.0 Allergy status to penicillin; Z88.8 Allergy status to other drugs, medicaments and biological substances; Z91.018 Allergy to other foods; Z82.49 Family history of ischemic heart disease and other diseases of the circulatory system; F17.210 Nicotine dependence, cigarettes, uncomplicated
CPT/HCPCS: 71046; 99212; G0463

== ENCOUNTER 2018-04-18 16:53 | Inpatient (IN) | payer OTHER ==
--- NOTE | 2018-04-18 17:12 | ED ---
Neurological HPI - HPI Summary HPI Summary: A 42 y/o F presents to ED with c/o confusion on this afternoon. At 0400 yesterday, boyfriend states pt was behaving normally. Today her son told the pt' s boyfriend that pt put her foot into her medication bag to wear as a shoe. She states she was conscious of what she was doing, but felt it made sense at the time. At bedside, she knows that this was odd behavior. She states feeling less confused now with the oxygen on. Associated sx: SOB. Denies ENCISO, dizziness. Pt started home O2 2L five days ago when she was released from the hospital. When the boyfriend came home today, pt was not wearing her oxygen. She was in the hospital for PNA, bronchitis, COPD. She is still taking Prednisone but is tapering. LNMP was in 2011. PMHx: hypothyroidism, HTN, brain aneurysm 3 years ago. No DM. Surgeries: dental extraction, cholecystectomy, appy, tonsilectomy. Pt recently quit smoking. Vitals at bedside: HR: 117bpm, BP: 124/91. Home Medications Medication Instructions Recorded Confirmed Type ALPRAZolam TAB* [Xanax TAB*] 1 mg PO TID PRN MDD 3 tabs 01/10/18 04/18/18 History Aspirin EC TAB* [Ecotrin EC Low 81 mg PO DAILY 01/10/18 04/18/18 History Dose 81 MG*] Hydrocodone/Acetamin 10/325(NF 1 tab PO TID PRN MDD 3 tabs 01/10/18 04/18/18 History [[place] 10/325 (NF)] Levothyroxine TAB* [Synthroid 137 137 mcg PO DAILY 01/10/18 04/18/18 History MCG TAB*] Metoprolol Succinate XL TAB* 50 mg PO DAILY 01/10/18 04/18/18 History [Toprol XL TAB*] lamoTRIgine TAB(*) [Lamictal 200 mg PO DAILY 01/10/18 04/18/18 History TAB(*)] Albuterol/Ipratropium NEB.ESTEE* 1 neb INH Q4H PRN #50 neb.estee 04/07/18 04/18/18 Rx [Duoneb (Albuterol 2.5 MG/Ipratropium 0.5 MG)] Baclofen TAB* [Lioresal TAB*] 20 mg PO QID PRN 04/07/18 04/18/18 History Mometasone/Formoter 200/5 MDI* 2 puff INH BID #1 mdi 04/07/18 04/18/18 Rx [Dulera 200/5 MDI*] Benzonatate CAP* [Tessalon 100 MG 200 mg PO Q8H PRN #30 cap 04/13/18 04/18/18 Rx CAP*] Nicotine Inhaler* 10 mg INH Q2H PRN #5 amp 04/13/18 04/18/18 Rx Nicotine PATCH 14 MG/24 HR* 1 patch TRANSDERM DAILY #60 patch 04/13/18 04/18/18 Rx predniSONE TAB* [Deltasone 10 MG 10 mg PO DAILY #46 tab 04/13/18 04/18/18 Rx TAB*] Budesonide [Pulmicort] 1 mg INH BID 04/18/18 04/18/18 History QUEtiapine TAB* [Seroquel 300 MG 400 mg PO DAILY 04/18/18 04/18/18 History TAB*] risperiDONE TAB* [RisperDAL*] 4 mg PO BID 04/18/18 04/18/18 History - History of Current Complaint Chief Complaint: EDNeurologicalDeficit Stated Complaint: CONFUSION Time Seen by Provider: 04/18/18 17:04 Hx Obtained From: Patient, Family/Communications Officer - boyfriend, Medical Records - [place] [facility] [place] Hx Last Menstrual Period: 5 yrs ago Onset/Duration: Gradual Onset, Started hours ago, Still Present Timing: Constant Onset Severity: Moderate Current Severity: Moderate Number of Seizures: 0 Neurological Deficit Location: Generalized - confusion Pain Intensity: 0 Pain Scale Used: 0-10 Numeric Character: Confusion Number of Episodes: 0 Aggravating: Nothing Alleviating: Nothing Associated Signs and Symptoms: Positive: Negative. Negative: Headache, Dizziness TPA Considered: No - Additional Pertinent History Primary Care Physician: [id number] - Allergy/Home Medications Allergies/Adverse Reactions: Allergies Allergy/AdvReac Type Severity Reaction Status Date / Time amoxicillin Allergy Severe Anaphylatic Verified 04/07/18 04:37 Shock clavulanic acid Allergy Severe Anaphylatic Verified 04/07/18 04:37 [From Augmentin] Shock strawberry Allergy Severe Swelling Verified 04/07/18 04:37 Of Face,Lips,& Throat phenytoin [From Dilantin] Allergy Shortness Verified 04/07/18 04:37 of Breath sweet potato Allergy Swelling Verified 04/13/18 14:21 Of Face,Lips,& Throat Home Medications: Home Medications Budesonide [Pulmicort] 1 mg INH BID 04/18/18 [History Confirmed 04/18/18] QUEtiapine TAB* [Seroquel 300 MG TAB*] 400 mg PO DAILY 04/18/18 [History Confirmed 04/18/18] risperiDONE TAB* [RisperDAL*] 4 mg PO BID 04/18/18 [History Confirmed 04/18/18] PMH/Surg Hx/FS Hx/Imm Hx Previously Healthy: No Endocrine/Hematology History: Reports: Hx Anticoagulant Therapy - ASA daily, Hx Thyroid Disease - HYPO Denies: Hx Diabetes Cardiovascular History: Reports: Hx Aneurysm - brain , Hx Angina, Hx Coronary Artery Disease, Hx Deep Vein Thrombosis - states in right arm 2016, Hx Hypercholesterolemia, Hx Hypertension, Hx Valvular Heart Disease - heart murmur Denies: Hx Angioplasty, Hx Atrial Fibrillation, Hx Congestive Heart Failure, Hx Myocardial Infarction, Hx Pacemaker/ICD Respiratory History: Reports: Hx Asthma, Hx Chronic Obstructive Pulmonary Disease (COPD), Hx Seasonal Allergies, Hx Sleep Apnea - does not use machine GI History: Reports: Hx Gall Bladder Disease - gall bladder removed, Hx Gastroesophageal Reflux Disease, Other GI Disorders - H pylori History: Reports: Hx Kidney Stones - states she thinks she has kidney stones Denies: Hx Renal Disease Musculoskeletal History: Reports: Hx Back Problems - slipped disks Denies: Hx Arthritis, Hx Osteoporosis Sensory History: Reports: Hx Contacts or Glasses Denies: Hx Cataracts, Hx Hearing Aid Opthamlomology History: Reports: Hx Contacts or Glasses Denies: Hx Cataracts Neurological History: Reports: Hx Headaches, Hx Migraine, Other Neuro Impairments/Disorders - Cerebral Aneurysm Denies: Hx Dementia, Hx Seizures Psychiatric History: Reports: Hx Anxiety, Hx Depression, Hx Panic Disorder - SEVERE ANXIETY, Hx Bipolar Disorder Denies: Hx Substance Abuse - Surgical History Surgery Procedure, Year, and Place: [id number] REMOVED-TUBAL LIGATION-APPENDIX 08/15/14. BRAIN ANEURYSM-STENTS/COIL [facility] [place] 06/01/16 -1.5 ONLY. BRONCHOSCOPY WITH TRANSBRONCHIAL BIOPSY 07/26/16 Hx Anesthesia Reactions: Yes - takes a little bit longer for patient to wake up - Immunization History Date of Tetanus Vaccine: 2013 Infectious Disease History: No Infectious Disease History: Denies: Hx Hepatitis, Hx Human Immunodeficiency Virus (HIV), Traveled Outside the [place] in Last 30 Days - Family History Known Family History: Positive: Cardiac Disease, Other - brain aneurysm Family History: Positive fhx of CAD - Social History Occupation: Unemployed Lives: With Family Alcohol Use: None Hx Substance Use: No Substance Use Type: Reports: None Hx Tobacco Use: Yes Smoking Status (MU): Heavy Every Day Tobacco Smoker Type: Cigarettes Amount Used/How Often: 8 cigarettes a day recently---but usually 2ppd for 30 years Length of Time of Smoking/Using Tobacco: 20+ years Have You Smoked in the Last Year: Yes Review of Systems Negative: Fever Cardiovascular: Negative Positive: Shortness Of Breath Gastrointestinal: Negative Musculoskeletal: Negative Neurological: Other - pos: confusion. neg: dizziness Negative: Headache Psychological: Normal All Other Systems Reviewed And Are Negative: Yes Physical Exam - Summary Physical Exam Summary: Appearance: Well-appearing, no pain distress, obese Skin: Warm, color reflects adequate perfusion, dry Head: Normal Head/Face inspection, atraumatic Eyes: Conjunctiva clear ENT: Normal inspection Neck: Supple, no nodes, no JVD Respiratory: SOB at rest, audible wheezes Cardio: RRR, No murmur, pulses normal, brisk capillary refill Abdomen: Soft, nontender Bowel sounds: Present Musculoskeletal: Strength Intact/ROM intact, no calf tenderness, no edema. Psychological: Normal Neuro: Alert, muscle tone normal, no focal deficit GCS: 15 Triage Information Reviewed: Yes Vital Signs On Initial Exam: Initial Vitals Temp Pulse Resp BP Pulse Ox 97.0 F 130 26 141/112 90 04/18/18 16:55 04/18/18 16:55 04/18/18 16:55 04/18/18 16:55 04/18/18 16:55 Vital Signs Reviewed: Yes - Carl Coma Scale Best Eye Response: 4 - Spontaneous Best Motor Response: 6 - Obeys Commands Best Verbal Response: 5 - Oriented Coma Scale Total: 15 Diagnostics - Vital Signs Vital Signs Temp Pulse Resp BP Pulse Ox 04/18/18 16:55 97.0 F 130 26 141/112 90 - Laboratory Result Diagrams: 04/22/18 04:25 04/22/18 04:25 Lab Statement: Any lab studies that have been ordered have been reviewed, and results considered in the medical decision making process. - Radiology CXR Radiology Interpretation Completed By: Radiologist Summary of Radiographic Findings: IMPRESSION: Appearance of interstitial lung disease is similar to recent prior imaging. ED provider has reviewed this report. - CT BRAIN CT Interpretation Completed By: Radiologist Summary of CT Findings: IMPRESSION: 1. No acute intracranial abnormality. 2. Unchanged finding of probable stent at the cavernous portion of right. internal carotid artery. 3. Air-fluid level in the left sphenoid sinus unchanged, which may represent. sinusitis. ED provider has reviewed this report. - EKG 1740 Cardiac Rate: Tachycardia - 112 bpm EKG Rhythm: Sinus Tachycardia ST Segment: Non-Specific Ectopy: PACs EKG Comparison: No Significant Change - from previous on 04/07/18 Summary of EKG Findings: EKG at [address], nml QTc, and nml axis. NIH Scale - NIH Scale Level of Consciousness: Alert/Keenly Responsive Ask Patient the Month and His/Her Age: Both Correct Ask Pt to Open/Close Eyes and Precision Agronomist/Release Non-Paretic Hand: Both Correctly Best Gaze (Only Horizontal Eye Movement): Normal Visual Field Testing: No Visual Loss Facial Paresis-Pt to Smile & Close Eyes or Grimace Symmetry: Normal/Symmetrical Motor Function - Right Arm: No Drift-Holds 10 Seconds Motor Function - Left Arm: No Drift-Holds 10 Seconds Motor Function - Right Leg: No Drift-Holds 10 Seconds Motor Function - Left Leg: No Drift-Holds 10 Seconds Limb Ataxia-Must be out of Proportion to Weakness Present: Absent Sensory (Use Pinprick to Test Arms/Legs/Trunk/Face): Normal Best Language (Describe Picture, Name Items): No Aphasia Dysarthria (Read Several Words): Normal Extinction and Inattention: No Abnormality Total Score: 0 Re-Evaluation - Re-Evaluation First Eval Re-Evaluation Time: 18:00 Change: Improved Comment: mental status improved on oxygen. Agrees to admission. Course/Dx - Course Course Of Treatment: Pt is a 42 y/o F presenting with confusion onset this afternoon. At 0400 yesterday, boyfriend states pt was behaving normally. Today her son told the pt's boyfriend that pt put her foot into her medication bag to wear as a shoe. She states she was conscious of what she was doing, but felt it made sense at the time. At bedside, she knows that this was odd behavior. She states feeling less confused now with the oxygen on. Denies ENCISO, dizziness. CXR shows "Appearance of interstitial lung disease is similar to recent prior imaging." Chemistry shows: Trop: 0.04, Glucose: 213, BUN/Creatinine: 20.4, Lactic acid: 3.4. ABG shows hypoxia without hypercapnia. Brain CT shows no acute intracranial findings. Consulted with Dr. Burrows, hospitalist, who will admit pt. Allergies noted, high blood pressure noted. Pt medications reviewed this visit. - Differential Dx Differential Diagnoses Neuro: Positive: Cerebrovascular Accident, Hypoxia, Medication Reaction, Seizure Disorder - Diagnoses Provider Diagnoses: Hypertension, poor control, COPD exacerbation, Altered mental status, Hypoxia, Elevated troponin, Acute respiratory failure with hypoxia - Physician Notifications Discussed Care Of Patient With: Johnny Burrows - hospitalist Time Discussed With Above Provider: 18:13 Instructed by Provider To: Admit As Inpatient - Critical Care Time Critical Care Time: 30-74 min - 30 minutes Discharge - Sign-Out/Discharge Documenting (check all that apply): Patient Departure - ADM - Discharge Plan Condition: Guarded Disposition: ADMITTED TO [facility] - Billing Disposition and Condition Condition: GUARDED Disposition: Admitted to [facility] - Attestation Statements Document Initiated by Scribe: Yes Documenting Scribe: Beto Seaman Provider For Whom Scribe is Documenting (Include Credential): Dr. Kassandra Lipscomb MD Scribe Attestation: Beto Mcadams scribed for Dr. Kassandra Lipscomb MD on 04/23/18 at 2330. Scribe Documentation Reviewed: Yes Provider Attestation: The documentation as recorded by the Beto carranza accurately reflects the service I personally performed and the decisions made by , Dr. Kassandra Lipscomb MD
--- OUTSIDE RECORDS SUMMARY | 2018-04-18 17:21 | XMS REPORT | Continuity of Care Document ---
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 Payers Type Date Identification Numbers Payment Provider Subscriber Effective: Policy Number: [id number] Michael Aden 2015 [facility] PayID: [id number] [place] [address] Advance Directives Description No Information Available Problems Description No Information Family History Date Family Member(s) Problem(s) Comments General Cancer, Colon General Cancer, Breast General Diabetes General Heart Disease General Cerebral Aneurysms Mother Cancer, Colon Social History Type Date Description Comments Sex Unknown Marital Status Andrew Casey Lives With Male Partner 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 days, [...] Respimat 03/23 Active Aerosol 2.5mcg/Ac 4gm 2 Claudio t inhalations Disha once per , MD every day for copd Omeprazole 08/05 Active Capsules 40mg 30cap take one DR s capsule by Heetdercarolynn mouth every , MD morning Baclofen 07/19 Active Tablets 20mg 120ta 1 tab by bs mouth four [place] times a day , MD as needed Cormax Scalp 07/06 Active Solution 0.05% 100ml 1 apply to Claudio affected [place] area every , MD day when showering Protonix 05/[address] 40mg 30tab take one s tablet by [place] mouth every , MD day Pulse Oxygen 03/07 Active For F17.210 Claudio assessing delilah COPD status. MD Metoprolol 03/01 Active Tablets ER 50mg 30tab Take One Claudio Succinate 24HR s Tablet By [place] Mouth Every [...] Puffs By Disha mcg/Act Mouth Every , MD 6 Hours as Needed Nebulizer, Home 11/30 Active 1unit 1 use to J44.9 Claudio s inhale Guerreroetdercarolynn medications , as directed Albuterol 05/17 Active Nebulizer (2.5mg/3M 75ml 1 treatment J44.9 Perla Sulfate /2015 L) 0.083% (1 vial) P. four times a Blegen, day as M.D. needed for wheeze Vitamin D3 03/29 Active Capsules 2000Unit 30cap Take One Claudio s Capsule By [place] Mouth Every , MD Day Hydrocodone-Acet 03/02 Active Tablets 10-325mg 90tab three times Claudio aminophen s a day as [place] needed , Xanax 07/19 Active Tablets 1mg 1 tab by Claudio mouth three [place] times a day , Risperidone 04/15 Active Tablets 3mg 1 tab by Claudio mouth twice [place] a day , Aspirin [...] /0000 tablet by mouth once a day Acetazolamide Active Tablets 250mg Unknown /0000 Doxycycline 07/31 Hx Capsules 100mg 20cap 1 take by Nilesh Mcfarlane Hyclate /2017 s mouth Moore - capsule 2 III, 07/31 times per [facility] day for 10 days for infection Prednisone 07/31 Hx Tablets 20mg 20tab take 3 tabs Christian.Dorothy Denys /2017 s by mouth x 3 Mulugeta - days, then 2 III, 01/16 tabs by [facility] mouth x 3 days, then 1 tab by mouth x 3 days then 1/2 tab by mouth x 4 days Doxycycline 07/31 Hx Capsules 100mg 20cap 1 take by Christian.Dorothy Denys Monohydrate s mouth Mulugeta - capsule 2 III, 01/16 times per [facility] [employer] [facility] day for 10 days for infection Dulera 07/13 Hx Aerosol 200-5mcg/ 13uni inhale two Act ts puffs by He[place] - mouth twice , 07/13 a day as directed Symbicort 07/13 Hx Aerosol 160-4.5mc 12gm inhale 2 g/Act puffs by [place] - mouth 2 , 01/16 times per [...] 1 patch 24HR ts daily Disha - MD 03/27 Protonix 02/[address] 40mg 30tab Take One s Tablet By [place] - Mouth Every , Nicotine Step 2 12/01 Hx Patches 14mg/24HR 30uni 1 daily Claudio 24HR ts every Samuelderks - morning , 03/07 Baclofen 11/30 Hx Tablets 20mg S29.012A Disha - MD 11/30 Baclofen 11/30 Hx Tablets 10mg 120ta take one to S29.012A bs two tablets Disha - four times a , 07/19 day needed Nicotrol 10/23 Hx Inhaler 10mg 336un inhale 1 Z72.0 its cartridge Heetarmida kay MD 03/27 repeatedly like a cigarette 16 times per day as needed for smoking cessation Lansoprazole 09/21 Hx Capsules 30mg 30cap 1 tab by K21.[address] workman mouth daily Disha Mauro MD 03/27 Pantoprazole 09/17 Hx Solution 40mg Claudio Rec Disha Mauro MD 09/17 Dexilant 09/17 Hx Capsules 30mg 30cap Take [address] workman capsule by Disha - mouth daily , 09/21 for 4 weeks for gastroesopha geal refluxdiseas e Clindamycin HCL 09/15 Hx Capsules 300mg 30cap take 1 H60.11 Claudio s capsule by Disha - mouth every , 10/23 8 hours for 10 days Protonix 09/[address] 40mg 30tab 1 by mouth Claudio s every day Disha Mauro MD 09/20 Doxycycline 06/07 Hx Tablets 100mg 20tab 1 tab by Christian.Enid Snyder Hyclkathryn s mouth twice [place] - a day , 06/23 [place] 06/07 Hx Tablets 5-325mg 90tab 1 tab [...] Mally tablets Luiza, - today then 1 [facility] [employer] [facility] 06/07 tablet daily for the next 4 days Benzonatate 05/05 Hx Capsules 100mg 45cap take 1 J01.90 Mally s capsules by Luiza, - mouth three [facility] [employer] 03/27 times a day /2017 as needed for coughing Zyrtec Allergy 04/14 Hx Tablets 10mg 30tab 1 by mouth Claudio s every day Disha - , 06/23 Magnesium Oxide 03/29 Hx Capsules 400mg 30cap 1 tab by Claudio -MG Supplement s mouth daily [place] - , 06/23 Magnesium Oxide 03/29 Hx [...] Hx Tablets 10mg 120ta Take One S29.012A Claudio bs Tablet By [place] - Mouth Four , 11/30 Times A Day as Needed Cyclobenzaprine [...] time take one daily for 4 days Proair HFA 07/28 Hx Aerosol 108(90Bas 2unit 1-2 puffs e) s every 6 He[place]ks - mcg/Act hours as , 03/27 needed /2017 Advair HFA 07/28 Hx Aerosol 115-21mcg 24uni inhale one Claudio / ts puff by [place] - mouth [...] Capsules 40mg 30cap 1 by mouth Claudio s every day Heetarmida - , 03/22 Magnesium 04/15 Hx Capsules 400mg 30cap 1 tab by Claudio s mouth daily Heetdercarolynn - , 03/29 Trazodone HCL 04/15 Hx Tablets 100mg 2 tab by Claudio /2014 mouth every [place]ks - night , 10/06 Cetirizine HCL 04/15 Hx Tablets 10mg 30tab 1 by mouth Claudio /2014 s every day Heetdercarolynn - , 07/19 Amitriptyline 04/15 Hx Tablets 25mg 30tab as needed Claudio HCL /2014 s Heetdercarolynn - , 07/19 Topiramate 1029 Hx Tablets 100mg 60tab once a day Claudio /2014 s Disha Mauro MD 01/26 Clopidogrel 04/15 Hx Tablets 75mg 30tab 1 by mouth Claudio Bisulfate s every day Disha Mauro MD 07/19 Quetiapine 04/15 Hx Tablets 400mg 30tab Claudio Fumarate s Disha Mauro MD 03/22 Omeprazole 04/15 Hx Capsules 40mg 30cap Take One Claudio s Capsule By [place] - Mouth Every MD 09/17 Atenolol 04/15 Hx Tablets 25mg 30tab Take One Claudio s Tablet By [place] - Mouth Every MD Nicotine 04/14 Hx Lozenges 2mg 120un 1 Dissolve Z72.0 Claudio Polacrilex its by mouth Disha Mauro lozenge MD Kelly 10/06 times day for smoking cessation Albuterol 00/00 Hx Unknown Sulfate /0000 - 08/22 Albuterol HFA 00/00 Hx Unknown /0000 - 08/22 Diazepam 00/00 Hx Tablets 5mg Unknown /0000 - 03/15 Oxycodone-Acetam 00/00 Hx Tablets 5-325mg 60tab 1 by mouth Claudio inophen /0000 s every 4 Heet[place]ks - hours MD sedrick 03/15 severe pain Prednisone 00/00 Hx Tablets 20mg Take Two Unknown /0000 Tablets By - Mouth Every Dose Due 6 12 17 Prednisone 00/00 Hx Tablets 10mg Unknown /0000 - 03/07 Immunizations CPT Code Status Date Vaccine Lot # [id number] Given 03/27/2018 Influenza Virus Vaccine, Quadrivalent, 3 Yr > [id number] Quad, Preserv Free 58032 Given 03/07/2017 Influenza Virus Vaccine, Quadrivalent, 3 Yr > [id number] Quad, Preserv Free 74140 Given 03/15/2016 Influenza Virus Vaccine, Quadrivalent, 3 Yr > [id number] Quad, Preserv Free 74338 Given 04/14/2015 Influenza Virus Vaccine, Quadrivalent, 3 Yr > [id number] Quad, Preserv Free 50088 Given 06/18/2009 Tdap (Adacel) Vital Signs Date Vital Result Comment 04/15/2018 2:39pm Weight 240.00 lb Weight 108.864 kg BP Systolic 138 mmHg BP Diastolic 86 mmHg Heart Rate 78 /min Body Temperature 97.0 F O2 % BldC Oximetry 95 % 04/03/2018 4:31pm O2 % BldC Oximetry 91 % 04/03/2018 3:17pm Weight 238.00 lb Weight 107.957 kg BP Systolic 140 mmHg BP Diastolic 82 mmHg Heart Rate 72 /min Body Temperature 98.2 F Respiratory Rate 16 /min O2 % BldC Oximetry 84 % 03/27/2018 9:18am Weight 232.00 lb Weight 105.235 [...] Facility Test Result H/L Range Note Inr/Protime 04/07/2018 [facility] Inr 0.92 0.77- 1.02 [phone] Laboratory test 04/07/2018 [facility] Partial 28.7 seconds 26.0-36.3 finding [phone] Thrombo Time PTT Lactic Acid 2.0 mmol/L 0.5-2.0 1 CBC Auto Diff 04/07/2018 [facility] White Blood 8.1 10^3/uL 3.5-10.8 [phone] Count Red Blood Count 5.09 10^6/uL 4.00-5.40 Hemoglobin 14.4 g/dL 12.0-16.0 Hematocrit 44 % 35-47 Mean Corpuscular Volume 86 fL 80-97 Mean Corpuscular Hemoglobin 28 pg 27-31 Mean Corpuscular HGB Conc 33 g/dL 31-36 Red Cell Distribution Width 17 % High 10.5-15 Platelet Count 126 10^3/uL Low 150-450 Mean Platelet Volume 9.3 um3 7.4-10.4 Abs Neutrophils 6.3 10^3/uL 1.5-7.7 Abs Lymphocytes 0.7 10^3/uL Low 1.0-4.8 Abs Monocytes 1.0 10^3/uL High 0-0.8 Abs Eosinophils 0 10^3/uL 0-0.6 Abs Basophils 0 10^3/uL 0-0.2 Abs Nucleated RBC 0 10^3/uL Granulocyte % 77.9 % 38-83 Lymphocyte % 8.8 % Low 25-47 Monocyte % 12.6 % High 0-7 Eosinophil % 0.3 % 0-6 Basophil % 0.4 % 0-2 Nucleated Red Blood Cells % 0 Laboratory test 04/07/2018 [facility] B-Type 111 pg/ mL High 2 finding [phone] Natriuretic Peptide BNP Comp Metabolic 04/07/2018 [facility] Sodium 139 mmol/ L 135-1 Panel [phone] Potassium 4.4 mmol/L 3.5-5.0 Chloride 105 mmol/L 101-111 Co2 Carbon Dioxide 28 mmol/L 22-32 Anion Gap 6 mmol/L 2-11 Glucose 134 mg/dL High 70-100 Blood Urea Nitrogen 19 mg/dL 6-24 Creatinine 0.90 mg/dL 0.51-0.95 BUN/Creatinine Ratio 21.1 High 8-20 Calcium 9.2 mg/dL 8.6-10.3 Total Protein 6.5 g/dL 6.4-8.9 Albumin 4.0 g/dL 3.2-5.2 Globulin 2.5 g/dL 2-4 Albumin/Globulin Ratio 1.6 1-3 Total Bilirubin 0.30 mg/dL 0.2-1.0 Alkaline Phosphatase 82 U/L 34-104 Alt 45 U/L 7-52 Ast 17 U/L 13-39 Egfr Non- 68.0 >60 Egfr 82.3 >60 3 Laboratory test 04/07/2018 [facility] Magnesium 2.2 mg/dL 1.9-2.7 finding [phone] Troponin-I (TnI) 0.02 ng/mL <0.04 HCG < 0.60 mIU/mL 4 TSH (Thyroid Stimulating Horm) 8.46 mcIU/mL High 0.34-5.60 Laboratory test 01/27/2018 [facility] B-Type 21 pg/ mL 5 finding [phone] Natriuretic Peptide BNP CBC Auto Diff 01/27/2018 [facility] White Blood Count 5.1 10^3/uL 3.5-10 [phone] .8 Red Blood Count 4.96 10^6/uL 4.00-5.40 Hemoglobin [...] Blood Cells % 0.1 Laboratory test 01/27/2018 [facility] Creatine Kinase 90 U/L 10-223 finding [phone] C Reactive Protein 25.72 mg/L High <8.01 Troponin-I (TnI) 0.00 ng/mL <0.04 Lactic Acid 1.7 mmol/L 0.5-2.0 6 Comp Metabolic Panel 01/27/2018 [facility] Sodium 139 mmol/L 135-145 [phone] Potassium 3.7 mmol/L 3.5-5.0 Chloride 106 mmol/L [...] Egfr Non- 68.9 >60 Egfr 83.4 >60 7 Laboratory test 01/27/2018 [facility] Partial Thrombo 30.1 26.0-36.3 finding [phone] Time PTT seconds Inr/Protime 01/27/2018 [facility] Inr 0.93 0.77- 1.02 [phone] Laboratory test 01/10/2018 [facility] Pathologist ( SEE NOTE) 8 finding [phone] Review Manual 01/10/2018 [facility] Neutrophil % 70 % 38- 83 Differential [phone] Lymphocytes % 16 % Low 25-47 Monocytes % 11 % High 0-7 Eosinophils % 0 % 0-6 Basophil % 0 % 0-2 Variant Lymph % 3 % 0-6 Abs Neutrophils 4.2 10^3/uL 1.5-7.7 Abs Lymphocytes 1.0 10^3/uL 1.0-4.8 Abs Monocytes 0.7 10^3/uL 0-0.8 Abs Eosinophils 0 10^3/uL 0-0.6 Abs Basophils 0 10^3/uL 0-0.2 RBC Morphology Normal Normal Laboratory test 01/10/2018 [facility] Lactic Acid 1.4 mmol/L 0.5-2.0 9 finding [phone] CBC Auto Diff 01/10/2018 [facility] White Blood 6.0 10^3/uL 3.5-10.8 [phone] Count Red Blood Count 4.88 10^6/uL 4.00-5.40 [...] Basophils 0.1 10^3/uL 0-0.2 Laboratory test 01/10/2018 [facility] Troponin-I (TnI ) 0.01 ng/mL <0.04 finding [phone] Comp Metabolic 01/10/2018 [facility] Sodium 140 mmol/ L 135-145 Panel [phone] Potassium 4.1 mmol/L 3.5-5.0 Chloride 105 mmol/L [...] Egfr Non- 70.7 >60 Egfr 85.6 >60 10 Laboratory test 01/10/2018 [facility] Troponin-I 0.00 ng/mL <0.04 finding [phone] (TnI) Arterial Blood 02/10/2017 [facility] PH Arterial 7.39 7.35-7.45 Gas [phone] Pco2 Arterial 42 mmHg 35-45 Po2 Arterial 68 mmHg Low 80-100 O2 Saturation Arterial 96.4 % 95-98 Base Excess Arterial 0.3 -2.0-2.0 11 Hco3 Arterial 24.9 mmol/L 19-31 Laboratory test 02/10/2017 [facility] Lactic Acid 1.6 mmol/L 0.5-2.0 12 finding [phone] CBC Auto Diff 01/04/2017 [facility] White Blood 5.9 10^3/uL 3.5-10.8 [phone] Count Red Blood Count 4.77 10^6/uL 4.0-5.4 [...] Red Blood Cells % 0.3 Inr/Protime 01/04/2017 [facility] Inr 0.92 0.89- 1.11 [phone] Laboratory test 01/04/2017 [facility] Partial 28.3 seconds 26.0-36.3 finding [phone] Thrombo Time PTT D Dimer Quantitative < 200 ng/mL Less Than 230 13 Comp Metabolic Panel 01/04/2017 [facility] Sodium 135 mmol/L 133-145 [phone] Potassium 3.8 mmol/L 3.5-5.0 Chloride 105 mmol/L [...] Egfr Non- 77.2 >60 Egfr 99.2 >60 14 Laboratory test 01/04/2017 [facility] Troponin-I (TnI ) 0.00 ng/mL <0.04 finding [phone] B-Type Natriuretic Peptide BNP 30 pg/mL 15 Blood Culture SEE RESULT BELOW 16 Laboratory test 11/24/2016 [facility] Troponin-I (TnI ) 0.01 ng/mL <0.04 finding [phone] Lactic Acid 2.0 mmol/L 0.5-2.0 17 B-Type Natriuretic Peptide BNP 21 pg/mL 18 C Reactive Protein 61.01 mg/L High < 5.00 19 Blood Culture SEE RESULT BELOW 20 Comp Metabolic Panel 11/24/2016 [facility] Sodium 133 mmol/L 133-145 [phone] Potassium 4.2 mmol/L 3.5-5.0 Chloride 100 mmol/L [...] Egfr Non- 68.3 >60 Egfr 87.9 >60 21 CBC Auto Diff 11/24/2016 [facility] White Blood 7.1 10^3/uL 3.5-10.8 [phone] Count Red Blood Count 5.10 10^6/uL 4.0-5.4 [...] Red Blood Cells % 0 Lipid Profile 10/23/2016 [facility] Triglycerides 125 mg/dL 22 (Trig/Chol/HDL) [phone] Cholesterol 164 mg/dL 23 HDL Cholesterol 31.7 mg/dL 24 LDL Cholesterol 107 mg/dL 25 Laboratory test 10/23/2016 [facility] Hemoglobin A1c 5.8 % Less than 26 finding [phone] (Glyco HGB) 6.0 CBC Auto Diff 10/23/2016 [facility] White Blood 5.7 3.5-10.8 [phone] Count 10^3/uL Red Blood Count 5.06 10^6/uL [...] Blood Cells % 0.2 Laboratory Studies 10/23/2016 N2N/CCD Import Absolute Basophils [...] Blood Count 5.7 10^3/ul 3.5-10.8 Laboratory test 07/26/2016 [facility] Body Fluid SEE RESULT 27, 28 finding [phone] Cult & Gram BELOW Stain Af[employer] Profile SEE RESULT BELOW 29 Laboratory test 07/26/2016 [facility] Fungal Cult - SEE RESULT 30 finding [phone] Other Sources BELOW Laboratory test 07/26/2016 [facility] Fungal Cult - SEE RESULT 31 finding [phone] Other Sources BELOW Laboratory test 07/26/2016 [facility] Mycobacterial See Comment 32 finding [phone] Culture Laboratory test 07/15/2016 [facility] Inr 0.99 0.89- finding [phone] 1.11 Partial Thrombo Time PTT 30.2 seconds 26.0-36.3 Comp Metabolic Panel 07/15/2016 [facility] Sodium 137 mmol/L 133-145 [phone] Potassium 3.5 mmol/L 3.5-5.0 Chloride 105 mmol/L [...] Egfr Non- 78.7 >60 Egfr 101.2 >60 33 CBC Auto Diff 07/15/2016 [facility] White Blood 5.3 10^3/uL 3.5-10.8 [phone] Count Red Blood Count 4.83 10^6/uL 4.0-5.4 [...] 6.4-8.9 White Blood Count 5.3 10^3/ul 3.5-10.8 Laboratory test 06/23/2016 [facility] TSH (Thyroid 6.73 High 0.34-5.60 34 finding [phone] Stim Horm) mcIU/mL CBC Auto Diff 06/23/2016 [facility] White Blood 5.6 10^3/uL 3.5-10.8 [phone] Count Red Blood Count 4.75 10^6/uL 4.0-5.4 Hemoglobin [...] Cells % 0.1 Comp Metabolic Panel 06/23/2016 [facility] Sodium 136 mmol/L 133-145 [phone] Potassium 4.1 mmol/L 3.5-5.0 Chloride 103 mmol/L [...] Egfr Non- 66.1 >60 Egfr 85.0 >60 35 Laboratory test 06/23/2016 [facility] Free T4 (Free 0.85 ng/dL 0.61-1.12 36 finding [phone] Thyroxine) Laboratory test 03/15/2016 [facility] Free T4 (Free 0.72 ng/dL 0.61-1.12 37 finding [phone] Thyroxine) T3 Total 1.04 ng/mL 0.87-1.78 38 TSH (Thyroid Stim Horm) 10.86 mcIU/mL High 0.34-5.60 39 CBC Auto Diff 03/15/2016 [facility] White Blood 6.3 10^3/uL 3.5-10.8 [phone] Count Red Blood Count 4.85 10^6/uL 4.0-5.4 [...] Blood Cells % 0 Laboratory test 11/23/2015 [facility] Urine Culture SEE RESULT 40 finding [phone] BELOW Urinalysis Profile 11/23/2015 [facility] Urine Color Yellow [phone] Urine Appearance Turbid Urine Specific [place] 1.016 1.010-1.030 Urine pH 7.0 5-9 Urine [...] Urine Yeast Present Absent Laboratory test 11/23/2015 [facility] Troponin I 0.00 ng/mL <0.03 41, 42 finding [phone] Laboratory test 11/23/2015 [facility] Magnesium 2.3 mg/dL 1.9-2.7 finding [phone] Creatine Kinase 65 U/L 10-223 Troponin I 0.00 ng/mL <0.03 43 TSH (Thyroid Stimulating Horm) 4.07 ?IU/mL 0.34-5.60 Comp Metabolic Panel 11/23/2015 [facility] Sodium 139 mmol/L 133-145 [phone] Potassium 3.7 mmol/L 3.5-5.0 Chloride 105 mmol/L [...] Egfr Non- 72.4 >60 Egfr 93.1 >60 44 CBC Auto Diff 11/23/2015 [facility] White Blood 3.5 10^3/uL 3.5-10.8 [phone] Count Red Blood Count 4.55 10^6/uL 4.0-5.4 [...] 0-2 Nucleated Red Blood Cells % 0.1 CBC Auto Diff 11/08/2015 [facility] White Blood 4.0 10^3/uL 3.5-10.8 [phone] Count Red Blood Count 4.71 10^6/uL 4.0-5.4 Hemoglobin [...] Blood Cells % 0.1 Urinalysis Profile 11/04/2015 [facility] Urine Color Yellow [phone] Urine Appearance Cloudy Urine Specific [place] 1.010 1.010-1.030 Urine pH 7.0 5-9 Urine Urobilinogen Negative Negative Urine Ketones Negative Negative Urine Protein Negative Negative Urine Leukocytes 2+ Negative Urine Blood Negative Negative Urine Nitrite Negative Negative Urine Bilirubin Negative Negative Urine Glucose Negative Negative Urine White Blood Cell Trace(0-5/hpf) Absent Urine Red Blood Cell Absent Absent Urine Bacteria Absent Absent Urine Squamous Epithelial Cell Present Absent Laboratory test 11/04/2015 [facility] Urine Culture SEE RESULT 45 finding [phone] BELOW Inr/Protime 11/04/2015 [facility] Inr 0.88 Low 0.89 -3 [phone] .[phone] Comp Metabolic 11/04/2015 [facility] Sodium 137 mmol/ L 133-14 Panel [phone] Potassium 4.5 mmol/L 3.5-5.0 Chloride 105 [...] Egfr Non- 75.4 >60 Egfr 97.0 >60 46 Laboratory test 11/04/2015 [facility] HCG < 0.60 mIU/mL 47 finding [phone] Laboratory test 08/15/2015 [facility] Lactic Acid 0.9 mmol/L 0.5-2 48 finding [phone] Inr/Protime 08/15/2015 [facility] Inr 1.07 0.89- [phone] 1.11 Laboratory test 08/15/2015 [facility] Partial Thrombo 35.8 seconds 26.0- finding [phone] Time PTT 36.3 B-Type Natriuretic Peptide BNP 10 pg/mL 49 CBC Auto 08/15/2015 [facility] White Blood 2.7 10^3/ uL Low 3.5-10.8 Diff [phone] Count Red Blood Count 4.81 10^6/uL 4.0-5.4 Hemoglobin [...] Blood Cells % 0.1 Comp Metabolic Panel 08/15/2015 [facility] Sodium 135 mmol/L 133-145 [phone] Potassium 3.7 mmol/L 3.5-5.0 Chloride 110 mmol/L [...] Egfr Non- 79.0 >60 Egfr 101.7 >60 50 Laboratory test 08/15/2015 [facility] Magnesium 2.1 mg/dL 1.9-2.7 finding [phone] Lipase 25 U/L 11.0-82.0 Creatine Kinase 53 U/L 10-223 C Reactive Protein 17.16 mg/L High < 5.00 51 Troponin I 0.00 ng/mL <0.03 52 CKMB 08/15/2015 [facility] CKMB ng/mL 1.7 ng/mL 0.6-6.3 [phone] Laboratory test 08/15/2015 [facility] TSH (Thyroid 4.07 0.34-5.60 finding [phone] Stimulating Horm) ?IU/mL Lipid Profile 07/19/2015 [facility] Triglycerides 158 mg/dL 53 (Trig/Chol/HDL) [phone] Cholesterol 177 mg/dL 54 HDL Cholesterol 33.5 mg/dL 55 LDL Cholesterol 112 mg/dL 56 Laboratory test 07/19/2015 [facility] Hemoglobin A1c 5.4 % Less than 57 finding [phone] (Glyco HGB) 6.0 CBC Auto Diff 07/19/2015 [facility] White Blood 4.0 3.5-10.8 [phone] Count 10^3/uL Red Blood Count 4.75 10^6/uL [...] Cells % 0.2 Comp Metabolic Panel 07/19/2015 [facility] Sodium 136 mmol/L 133-145 [phone] Potassium 4.6 mmol/L 3.5-5.0 Chloride 107 mmol/L [...] Egfr Non- 77.9 >60 Egfr 100.2 >60 58 1 [facility] Severe Sepsis and Septic Shock Management Bundle Measure requires all lactic acids initially measuring >2.0 mmol/L be repeated. 2 >100 to <200 pg/mL: likely compensated congestive heart failure (CHF) 200 to 400 pg/mL: likely moderate CHF >400 pg/mL: likely moderate to severe CHF 3 Because ethnic data is not always readily [...] 15-29 5 Kidney failure <15 (or dialysis) 4 <5.0 Negative 5.0 - 25.0 Indeterminate (Repeat testing recommended after 72 hours) >25.0 Positive Perimenopausal women can display HCG levels of up to 20 mIU/mL 5 >100 to <200 pg/mL: likely compensated congestive heart failure (CHF) 200 to 400 pg/mL: likely moderate CHF >400 pg/mL: likely moderate to severe CHF 6 [facility] Severe Sepsis and Septic Shock Management Bundle Measure requires all lactic acids initially measuring >2.0 mmol/L be repeated. 7 Because ethnic data is not always [...] 5 Kidney failure <15 (or dialysis) 8 Mild monocytosis favor reactive. Reviewed by Dr. Andrews 9 [facility] Severe Sepsis and Septic Shock Management Bundle Measure requires all lactic acids initially measuring >2.0 mmol/L be repeated. 10 Because ethnic data is not always readily [...] 15-29 5 Kidney failure <15 (or dialysis) 11 Reference ranges based on room air. 12 [facility] Severe Sepsis and Septic Shock Management Bundle Measure requires all lactic acids initially measuring >2.0 mmol/L be repeated. 13 Please note: The following may produce a false positive D Dimer test: - Rheumatoid factor greater than 60 IU/ml - Plasma hemoglobin greater than 0.05 gm/dl - Bilirubin greater than 50 mg/dl - Lipids greater than 1000 mg/dl - FDP greater than 20 ug/ml 14 Because ethnic data is not always [...] 5 Kidney failure <15 (or dialysis) 15 >100 to <200 pg/mL: likely compensated congestive heart failure (CHF) 200 to 400 pg/mL: likely moderate CHF >400 pg/mL: likely moderate to severe CHF 16 SEE RESULT BELOW Name: ALYSIA ADEN : [address]: Jorge Mendoza MD Acct: [id number] Unit: [id number] AGE: 41 Location: ED Re01/03/17 SEX: F Status: DEP ER SPEC: [id number] YOANA: 01/04/17 [facility] DR: Jorge Mendoza MD REQ: [id number] RECD: 01/04/[address]: [address]: Claudio Gauthier MD _ SOURCE: BLOOD,VENO SPDESC: ORDERED: Blood Cult COMMENTS: Patient is On Antibiotics? NO Procedure Result Reported Site Aerobic Culture Bottle Final 01/09/17- 0151 ML No Growth Day 5 Anaerobic Culture Bottle Final 01/09/17- 0151 ML No Growth Day 5 * ML - MAIN LAB ([facility]) . END OF REPORT * ML=Testing performed at Main Lab DEPARTMENT OF PATHOLOGY, [address] [place] [address] John Andrews M.D. Director [facility] # [id number] 17 [facility] Severe Sepsis and Septic Shock Management Bundle Measure requires all lactic acids initially measuring >2.0 mmol/L be repeated. 18 >100 to <200 pg/mL: likely compensated congestive heart failure (CHF) 200 to 400 pg/mL: likely moderate CHF >400 pg/mL: likely moderate to severe CHF 19 Acute inflammation: >10.00 20 SEE RESULT BELOW Name: ALYSIA ADEN : [address]: Nahun Ferguson MD Acct: [id number] Unit: [id number] AGE: 41 Location: [place] [address] Re11/25/16 Dis: 11/26/16 SEX: F Status: DIS IN SPEC: [id number] YOANA: 11/24/16 [facility] DR: Flaquito Coto DO REQ: [id number] RECD: 11/24/16 STATUS: AALIYAH JEWELL DR: Claudio Gauthier MD _ SOURCE: BLOOD,VENO [facility]: ORDERED: Blood Cult Procedure Result Reported Site Aerobic Culture Bottle Final 11/29/16- 2207 ML No Growth Day 5 Anaerobic Culture Bottle Final 11/29/16- 2207 ML No Growth Day 5 * ML - MAIN LAB ([facility]) . END OF REPORT * ML=Testing performed at Main Lab DEPARTMENT OF PATHOLOGY, [address] [place] [address] John Andrews M.D. Director [facility] # [id number] 21 Because ethnic data is not always readily [...] 15-29 5 Kidney failure <15 (or dialysis) 22 Desirable <150 Borderline high 150-199 High 200-499 Very High >500 23 Desirable <200 Borderline high 200-239 High >239 24 Low <40 Desirable: 40-60 High: >60 25 Desirable: <100 mg/dL Near Optimal: 100-129 mg/dL Borderline High: 130-159 mg/dL High: 160-189 mg/dL Very High: >189 mg/dL 26 Therapeutic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
--- OUTSIDE RECORDS SUMMARY | 2018-04-18 17:21 | XMS REPORT | Continuity of Care Document ---
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 Payers Type Date Identification Numbers Payment Provider Subscriber Effective: Policy Number: [id number] Michael Aden 2015 [facility] PayID: [id number] [place] [address] Advance Directives Description No Information Available Problems Description No Information Family History Date Family Member(s) Problem(s) Comments General Cancer, Colon General Cancer, Breast General Diabetes General Heart Disease General Cerebral Aneurysms Mother Cancer, Colon Social History Type Date Description Comments Sex Unknown Marital Status Andrew Casey Lives With Male Partner 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 Working [employer] Tobacco Use Start: Unknown Heavy tobacco smoker [...] Active Tablets 1mg 1 tab by Claudio /2015 mouth three Heetderks times a day , [...] 20cap 1 take by Jaiden44.1 Denys Hyclate /2017 s mouth Mulugeta - capsule 2 III, 07/31 times per [facility] day for 10 days for infection Prednisone 07/31 Hx Tablets 20mg 20tab take 3 tabs J44.1 Denys s by mouth x 3 Mulugeta - days, then 2 III, 01/16 tabs by [employer] [employer] mouth x 3 days, then 1 tab by mouth x 3 days then 1/2 tab by mouth x 4 days Doxycycline 07/31 Hx Capsules 100mg 20cap 1 take by J44.1 Denys Monohydrate /2017 s mouth Mulugeta - capsule 2 III, 01/16 times per [facility] [employer] day for 10 days for infection Dulera [...] 1 take by J44.1 Claudio s mouth Heetderks - capsule 2 , [...] 14mg/24HR 30uni 1 daily 24HR ts every Disha - morning , 03/07 Baclofen 11/30 Hx Tablets 20mg S29.012A Heetarmida - , 11/30 Baclofen 11/30 Hx Tablets 10mg 120ta take one to S29.012A bs two tablets Disha - four times a , 07/19 day needed Nicotrol 10/23 Hx Inhaler 10mg 336un inhale 1 Z72.0 its cartridge Disha - inhaled , 03/27 orally repeatedly like a cigarette 16 times per day as needed for smoking cessation Lansoprazole 09/21 Hx Capsules 30mg 30cap 1 tab by K21.[address] workman mouth daily Disha Mauro MD 03/27 Pantoprazole 09/17 Hx Solution 40mg Claudio Rec Disha Mauro MD 09/17 Dexilant 09/17 Hx Capsules 30mg 30cap Take [address] workman capsule by Disha - nando daily , 09/21 for 4 weeks for gastroesopha geal refluxdiseas e Clindamycin HCL 09/15 Hx Capsules 300mg 30cap take 1 H60.11 Claudio s capsule by Disha Mauro mouth every , 10/23 8 hours for 10 days Protonix 09/[address] 40mg 30tab 1 by mouth Claudio s every day Disha Mauro MD 09/20 Doxycycline 06/07 Hx Tablets 100mg 20tab 1 tab by J44.9 Claudio Hyclate s mouth twice Heetlupisks - a day , 06/23 [place] 06/07 Hx Tablets 5-325mg 90tab 1 tab [...] Mally tablets Luiza, - today then 1 [employer] 06/07 tablet daily for the next 4 days Benzonatate 05/05 Hx Capsules 100mg 45cap take 1 J01.90 Mally s capsules by Luiza, - mouth three [employer] 03/27 times a day /2017 as needed [...] Tablets 250mg 6tabs take 2 J01.90 Claudio /2016 tablets by Heetderks - mouth one , [...] 1 by mouth Claudio s every day Heetderks - , 03/22 Magnesium 04/15 Hx Capsules 400mg 30cap 1 tab by Claudio s mouth daily [place]ks - , 03/29 Trazodone HCL 04/15 Hx Tablets 100mg 2 tab by Claudio /2014 mouth every Heetderks - night , 10/06 Cetirizine HCL 1029 Hx Tablets 10mg 30tab 1 by mouth Claudio s every day [place] - , 07/19 Amitriptyline 04/15 Hx Tablets 25mg 30tab as needed Claudio HCL /2014 s [place]ks - , 07/19 Topiramate 1029 Hx Tablets [...] Dissolve Z72.0 Claudio Polacrilex its by mouth Guerreroetderks - lozenge 20 MD 10/06 times day for [...] CPT Code Status Date Vaccine Lot # 04291 Given 03/27/2018 Influenza Virus Vaccine, Quadrivalent, 3 Yr > [id number] Quad, Preserv Free 64567 Given 03/07/2017 Influenza Virus Vaccine, Quadrivalent, 3 Yr > [id number] Quad, Preserv Free 61223 Given 03/15/2016 Influenza Virus Vaccine, Quadrivalent, 3 Yr > [id number] Quad, Preserv Free 10061 Given 04/14/2015 Influenza Virus Vaccine, Quadrivalent, 3 Yr > [id number] Quad, Preserv Free 15086 Given 06/18/2009 Tdap (Adacel) Vital Signs Date Vital Result Comment 04/03/2018 4:31pm O2 % BldC Oximetry 91 [...] Test Result H/L Range Note Inr/Protime 01/27/2018 [facility] Inr 0.93 0.77- 1.02 [phone] Laboratory test 01/27/2018 [facility] Partial 30.1 seconds 26.0-36.3 finding [phone] Thrombo Time PTT Comp Metabolic 01/27/2018 [facility] Sodium 139 mmol/ L 135-145 Panel [phone] Potassium 3.7 mmol/L 3.5-5.0 Chloride 106 mmol/L [...] Egfr 83.4 >60 1 Laboratory test 01/27/2018 [facility] Creatine Kinase 90 U/L 10-223 finding [phone] C Reactive Protein 25.72 mg/L High <8.01 Troponin-I (TnI) 0.00 ng/mL <0.04 Lactic Acid 1.7 mmol/L 0.5-2.0 2 CBC Auto Diff 01/27/2018 [facility] White Blood 5.1 10^3/uL 3.5-10.8 [phone] Count Red Blood Count 4.96 10^6/uL 4.00-5.40 [...] Blood Cells % 0.1 Laboratory test 01/27/2018 [facility] B-Type 21 pg/ mL 3 finding [phone] Natriuretic Peptide BNP Laboratory test 01/10/2018 [facility] Pathologist ( SEE NOTE) 4 finding [phone] Review Manual 01/10/2018 [facility] Neutrophil % 70 % 38- 83 Differential [phone] Lymphocytes % 16 % Low 25-47 Monocytes % 11 % High 0-7 Eosinophils % 0 % 0-6 Basophil % 0 % 0-2 Variant Lymph % 3 % 0-6 Abs Neutrophils 4.2 10^3/uL 1.5-7.7 Abs Lymphocytes 1.0 10^3/uL 1.0-4.8 Abs Monocytes 0.7 10^3/uL 0-0.8 Abs Eosinophils 0 10^3/uL 0-0.6 Abs Basophils 0 10^3/uL 0-0.2 RBC Morphology Normal Normal Laboratory test 01/10/2018 [facility] Lactic Acid 1.4 mmol/L 0.5-2.0 5 finding [phone] CBC Auto Diff 01/10/2018 [facility] White Blood 6.0 10^3/uL 3.5-10.8 [phone] Count Red Blood Count 4.88 10^6/uL 4.00-5.40 [...] Basophils 0.1 10^3/uL 0-0.2 Laboratory test 01/10/2018 [facility] Troponin-I (TnI ) 0.01 ng/mL <0.04 finding [phone] Comp Metabolic 01/10/2018 [facility] Sodium 140 mmol/ L 135-145 Panel [phone] Potassium 4.1 mmol/L 3.5-5.0 Chloride 105 mmol/L [...] Egfr 85.6 >60 6 Laboratory test 01/10/2018 [facility] Troponin-I 0.00 ng/mL <0.04 finding [phone] (TnI) Arterial Blood 02/10/2017 [facility] PH Arterial 7.39 7.35-7.45 Gas [phone] Pco2 Arterial 42 mmHg 35-45 Po2 Arterial 68 mmHg Low 80-100 O2 Saturation Arterial 96.4 % 95-98 Base Excess Arterial 0.3 -2.0-2.0 7 Hco3 Arterial 24.9 mmol/L 19-31 Laboratory test 02/10/2017 [facility] Lactic Acid 1.6 mmol/L 0.5-2.0 8 finding [phone] CBC Auto Diff 01/04/2017 [facility] White Blood 5.9 10^3/uL 3.5-10.8 [phone] Count Red Blood Count 4.77 10^6/uL 4.0-5.4 [...] Red Blood Cells % 0.3 Inr/Protime 01/04/2017 [facility] Inr 0.92 0.89- 1.11 [phone] Laboratory test 01/04/2017 [facility] Troponin-I 0.00 ng/mL <0.04 finding [phone] (TnI) B-Type Natriuretic Peptide BNP 30 pg/mL 9 Blood Culture SEE RESULT BELOW 10 Comp Metabolic Panel 01/04/2017 [facility] Sodium 135 mmol/L 133-145 [phone] Potassium 3.8 mmol/L 3.5-5.0 Chloride 105 mmol/L [...] Egfr 99.2 >60 11 Laboratory test 01/04/2017 [facility] Partial 28.3 seconds 26.0-36.3 finding [phone] Thrombo Time PTT D Dimer Quantitative < 200 ng/mL Less Than 230 12 CBC Auto Diff 11/24/2016 [facility] White Blood 7.1 10^3/uL 3.5-10.8 [phone] Count Red Blood Count 5.10 10^6/uL 4.0-5.4 [...] Red Blood Cells % 0 Laboratory test 11/24/2016 [facility] Troponin-I (TnI ) 0.01 ng/mL <0.04 finding [phone] Lactic Acid 2.0 mmol/L 0.5-2.0 13 B-Type Natriuretic Peptide BNP 21 pg/mL 14 C Reactive Protein 61.01 mg/L High < 5.00 15 Blood Culture SEE RESULT BELOW 16 Comp Metabolic Panel 11/24/2016 [facility] Sodium 133 mmol/L 133-145 [phone] Potassium 4.2 mmol/L 3.5-5.0 Chloride 100 mmol/L [...] Non- 68.3 >60 Egfr 87.9 >60 17 Lipid Profile 10/23/2016 [facility] Triglycerides 125 mg/dL 18 (Trig/Chol/HDL) [phone] Cholesterol 164 mg/dL 19 HDL Cholesterol 31.7 mg/dL 20 LDL Cholesterol 107 mg/dL 21 Laboratory test 10/23/2016 [facility] Hemoglobin A1c 5.8 % Less than 22 finding [phone] (Glyco HGB) 6.0 CBC Auto Diff 10/23/2016 [facility] White Blood 5.7 3.5-10.8 [phone] Count 10^3/uL Red Blood Count 5.06 10^6/uL [...] Count 5.7 10^3/ul 3.5-10.8 Laboratory test 07/26/2016 [facility] Body Fluid SEE RESULT 23, 24 finding [phone] Cult & Gram BELOW Stain [employer] Profile SEE RESULT BELOW 25 Laboratory test 07/26/2016 [facility] Fungal Cult - SEE RESULT 26 finding [phone] Other Sources BELOW Laboratory test 07/26/2016 [facility] Fungal Cult - SEE RESULT 27 finding [phone] Other Sources BELOW Laboratory test 07/26/2016 [facility] Mycobacterial See Comment 28 finding [phone] Culture Laboratory 07/15/2016 N2N/CCD Import Absolute Basophils 0 10^3/ul 0-0.2 Studies (auto) Absolute Eosinophils (auto) 0 10^3/ul 0-0.6 [...] 5.3 10^3/ul 3.5-10.8 CBC Auto Diff 07/15/2016 [facility] White Blood 5.3 10^3/uL 3.5-10.8 [phone] Count Red Blood Count 4.83 10^6/uL 4.0-5.4 [...] Blood Cells % 0 Comp Metabolic Panel 07/15/2016 [facility] Sodium 137 mmol/L 133-145 [phone] Potassium 3.5 mmol/L 3.5-5.0 Chloride 105 mmol/L [...] Non- 78.7 >60 Egfr 101.2 >60 29 Laboratory test finding 07/15/2016 [facility] Inr 0.99 0.89-1.11 [phone] Partial Thrombo Time PTT 30.2 seconds 26.0-36.3 Laboratory test 06/23/2016 [facility] Free T4 (Free 0.85 0.61-1.12 30 finding [phone] Thyroxine) ng/dL Laboratory test 06/23/2016 [facility] TSH (Thyroid 6.73 High 0.34-5.60 31 finding [phone] Stim Horm) mcIU/mL CBC Auto Diff 06/23/2016 [facility] White Blood 5.6 3.5-10.8 [phone] Count 10^3/uL Red Blood Count 4.75 10^6/uL [...] Cells % 0.1 Comp Metabolic Panel 06/23/2016 [facility] Sodium 136 mmol/L 133-145 [phone] Potassium 4.1 mmol/L 3.5-5.0 Chloride 103 mmol/L [...] Egfr Non- 66.1 >60 Egfr 85.0 >60 32 Laboratory test 03/15/2016 [facility] Free T4 (Free 0.72 ng/dL 0.61-1.12 33 finding [phone] Thyroxine) T3 Total 1.04 ng/mL 0.87-1.78 34 TSH (Thyroid Stim Horm) 10.86 mcIU/mL High 0.34-5.60 35 CBC Auto Diff 03/15/2016 [facility] White Blood 6.3 10^3/uL 3.5-10.8 [phone] Count Red Blood Count 4.85 10^6/uL 4.0-5.4 [...] Blood Cells % 0 Laboratory test 11/23/2015 [facility] Magnesium 2.3 mg/dL 1.9-2.7 finding [phone] Creatine Kinase 65 U/L 10-223 Troponin I 0.00 ng/mL <0.03 36 TSH (Thyroid Stimulating Horm) 4.07 ?IU/mL 0.34-5.60 Comp Metabolic Panel 11/23/2015 [facility] Sodium 139 mmol/L 133-145 [phone] Potassium 3.7 mmol/L 3.5-5.0 Chloride 105 mmol/L [...] 93.1 >60 37 CBC Auto Diff 11/23/2015 [facility] White Blood 3.5 10^3/uL 3.5-10.8 [phone] Count Red Blood Count 4.55 10^6/uL 4.0-5.4 [...] Blood Cells % 0.1 Laboratory test 11/23/2015 [facility] Urine Culture SEE RESULT 38 finding [phone] BELOW Urinalysis Profile 11/23/2015 [facility] Urine Color Yellow [phone] Urine Appearance Turbid Urine Specific [place] 1.016 1.010-1.030 Urine pH 7.0 5-9 Urine [...] Urine Yeast Present Absent Laboratory test 11/23/2015 [facility] Troponin I 0.00 <0.03 39, 40 finding [phone] ng/mL CBC Auto Diff 11/08/2015 [facility] White Blood 4.0 3.5-10.8 [phone] Count 10^3/uL Red Blood Count 4.71 10^6/uL [...] Blood Cells % 0.1 Urinalysis Profile 11/04/2015 [facility] Urine Color Yellow [phone] Urine Appearance Cloudy Urine Specific [place] 1.010 1.010-1.030 Urine pH 7.0 5-9 Urine Urobilinogen Negative Negative Urine Ketones Negative Negative Urine Protein Negative Negative Urine Leukocytes 2+ Negative Urine Blood Negative Negative Urine Nitrite Negative Negative Urine Bilirubin Negative Negative Urine Glucose Negative Negative Urine White Blood Cell Trace(0-5/hpf) Absent Urine Red Blood Cell Absent Absent Urine Bacteria Absent Absent Urine Squamous Epithelial Cell Present Absent Laboratory test 11/04/2015 [facility] Urine Culture SEE RESULT 41 finding [phone] BELOW Inr/Protime 11/04/2015 [facility] Inr 0.88 Low 0.89 -1 [phone] .11 Comp Metabolic 11/04/2015 [facility] Sodium 137 mmol/ L 133-14 Panel [phone] 5 Potassium 4.5 mmol/L 3.5-5.0 Chloride 105 [...] Egfr 97.0 >60 42 Laboratory test 11/04/2015 [facility] HCG < 0.60 43 finding [phone] mIU/mL CBC Auto Diff 08/15/2015 [facility] White Blood 2.7 10^3/uL Low 3.5-6 [phone] Count 0.8 Red Blood Count 4.81 10^6/uL [...] Blood Cells % 0.1 Laboratory test 08/15/2015 [facility] Lactic Acid 0.9 mmol/L 0.5-2.0 44 finding [phone] Inr/Protime 08/15/2015 [facility] Inr 1.07 0.89- 1.11 [phone] Laboratory test 08/15/2015 [facility] Partial 35.8 seconds 26.0-36.3 finding [phone] Thrombo Time PTT B-Type Natriuretic Peptide BNP 10 pg/mL 45 Comp Metabolic Panel 08/15/2015 [facility] Sodium 135 mmol/L 133-145 [phone] Potassium 3.7 mmol/L 3.5-5.0 Chloride 110 mmol/L [...] Egfr 101.7 >60 46 Laboratory test 08/15/2015 [facility] Magnesium 2.1 mg/dL 1.9-2.7 finding [phone] Lipase 25 U/L 11.0-82.0 Creatine Kinase 53 U/L 10-223 C Reactive Protein 17.16 mg/L High < 5.00 47 Troponin I 0.00 ng/mL <0.03 48 CKMB 08/15/2015 [facility] CKMB ng/mL 1.7 ng/mL 0.6-6.3 [phone] Laboratory test 08/15/2015 [facility] TSH (Thyroid 4.07 0.34-5.60 finding [phone] Stimulating Horm) ?IU/mL Lipid Profile 07/19/2015 [facility] Triglycerides 158 mg/dL 49 (Trig/Chol/HDL) [phone] Cholesterol 177 mg/dL 50 HDL Cholesterol 33.5 mg/dL 51 LDL Cholesterol 112 mg/dL 52 Laboratory test 07/19/2015 [facility] Hemoglobin A1c 5.4 % Less than 53 finding [phone] (Glyco HGB) 6.0 CBC Auto Diff 07/19/2015 [facility] White Blood 4.0 3.5-10.8 [phone] Count 10^3/uL Red Blood Count 4.75 10^6/uL [...] Cells % 0.2 Comp Metabolic Panel 07/19/2015 [facility] Sodium 136 mmol/L 133-145 [phone] Potassium 4.6 mmol/L 3.5-5.0 Chloride 107 mmol/L [...] 5 Kidney failure <15 (or dialysis) 2 [facility] Severe Sepsis and Septic Shock Management Bundle Measure requires all lactic acids initially measuring >2.0 mmol/L be repeated. 3 >100 to <200 pg/mL: likely compensated congestive heart failure (CHF) 200 to 400 pg/mL: likely moderate CHF >400 pg/mL: likely moderate to severe CHF 4 Mild monocytosis favor reactive. Reviewed by Dr. Andrews 5 [facility] Severe Sepsis and Septic Shock Management [...] Reference ranges based on room air. 8 [facility] Severe Sepsis and Septic Shock Management Bundle Measure requires all lactic acids initially measuring >2.0 mmol/L be repeated. 9 >100 to <200 pg/mL: likely compensated congestive heart failure (CHF) 200 to 400 pg/mL: likely moderate CHF >400 pg/mL: likely moderate to severe CHF 10 SEE RESULT BELOW Name: ALYSIA ADEN : [address]: Jorge Mendoza MD Acct: [id number] Unit: [id number] AGE: 41 Location: ED Re01/03/17 SEX: F Status: DEP ER SPEC: [id number] YOANA: 01/04/170145 [facility] DR: Jorge Mendoza MD REQ: [id number] RECD: 01/04/171 STATUS: AALIYAH JEWELL DR: Claudio Gauthier MD _ SOURCE: BLOOD,VENO SPDESC: ORDERED: Blood Cult COMMENTS: Patient is On Antibiotics? NO Procedure Result Reported Site Aerobic Culture Bottle Final 01/09/17- 0151 ML No Growth Day 5 Anaerobic Culture Bottle Final 01/09/17- 015 ML No Growth Day 5 * ML - MAIN LAB ([facility]) . END OF REPORT * ML=Testing performed at Main Lab DEPARTMENT OF PATHOLOGY, [address] [place] [address] John Andrews M.D. Director [facility] # [id number] 11 Because ethnic data is not always [...] - FDP greater than 20 ug/ml 13 [facility] Severe Sepsis and Septic Shock Management Bundle Measure requires all lactic acids initially measuring >2.0 mmol/L be repeated. 14 >100 to <200 pg/mL: likely compensated congestive heart failure (CHF) 200 to 400 pg/mL: likely moderate CHF >400 pg/mL: likely moderate to severe CHF 15 Acute inflammation: >10.00 16 SEE RESULT BELOW Name: ALYSIA ADEN : [address]: Nahun Ferguson MD Acct: [id number] Unit: [id number] AGE: 41 Location: [place] [address] Re11/25/16 Dis: 11/26/16 SEX: F Status: DIS IN SPEC: [id number] YOANA: 11/24/16-[address]: Flaquito Coto DO REQ: [id number] RECD: 11/24/16 STATUS: COMP [facility] DR: Claudio Gauthier MD _ SOURCE: BLOOD,VENO SPDESC: ORDERED: Blood Cult Procedure Result Reported Site Aerobic Culture Bottle Final 11/29/16- 2208 ML No Growth Day 5 Anaerobic Culture Bottle Final 11/29/16- 2208 ML No Growth Day 5 * ML - MAIN LAB ([facility]) . END OF REPORT * ML=Testing performed at Main Lab DEPARTMENT OF PATHOLOGY, [address] [place] [address] John Andrews M.D. Director [facility] # [id number] 17 Because ethnic data is not always [...] and in selective patients <6.0%.Please refer to [place] [employer] Diabetic care guidelines for further information. 23 LEFT UPPER LOBE LAVAGE: LUNG NODULES, LEFT UPPER LOBE 24 SEE RESULT BELOW Name: ALYSIA ADEN : [address]: Janette Sebastian MD Acct: [id number] Unit: [id number] AGE: 40 Location: OR Re07/26/16 SEX: F Status: NATALIE NYE SPEC: [id number] YOANA: 07/26/16-[address]: Janette Sebastian MD REQ: [id number] RECD: 07/26/16 STATUS: AALIYAH JEWELL DR: Claudio [...] Quantity 1+ * ML - MAIN LAB ([facility]) . END OF REPORT * ML=Testing performed at Main Lab DEPARTMENT OF PATHOLOGY, [address] [place] [address] John Andrews M.D. Director [facility] # [id number] 25 SEE RESULT BELOW Name: ALYSIA ADEN : [address]: Janette Sebastian MD Acct: [id number] Unit: [id number] AGE: 40 Location: OR Re07/26/16 SEX: F Status: REG SDC SPEC: [id number] YOANA: 07/26/16-12[address] [facility] [address]: Janette Sebastian MD REQ: [id number] RECD: 07/26/16 STATUS: RES OTHR DR: Claudio [...] for diagnosis. * ML - MAIN LAB ([facility]) . END OF REPORT * ML=Testing performed at Main Lab DEPARTMENT OF PATHOLOGY, [address] [place] [address] John Andrews M.D. Director [facility] # [id number] 26 SEE RESULT BELOW Name: ALYSIA ADEN : [address]: Janette Sebastian MD Acct: [id number] Unit: [id number] AGE: 40 Location: OR Re07/26/16 SEX: F Status: NATALIE HOLBROOK SPEC: [id number] YOANA: 07/26/16-1252 [facility] [place]: Janette Sebastian MD REQ: [id number] RECD: 07/26/16 STATUS: RES OTHR : Claudio Gauthier MD _ SOURCE: RESP SPDESC:BRONCH [...] for diagnosis. * ML - MAIN LAB ([facility]) . END OF REPORT * ML=Testing performed at Main Lab DEPARTMENT OF PATHOLOGY, [address] [place] [address] John Andrews M.D. Director [facility] # [id number] 27 SEE RESULT BELOW Name: ALYSIA ADEN : [address]: Janette Sebastian MD Acct: [id number] Unit: [id number] AGE: 40 Location: OR Re07/26/16 SEX: F Status: DEP SDC SPEC: [id number] YOANA: 07/26/16-12[address] [facility] [address]: Janette Sebastian MD REQ: [id number] RECD: 07/26/16-1315 STATUS: AALIYAH JEWELL DR: Claudio Gauthier MD [...] for diagnosis. * ML - MAIN LAB ([facility]) . END OF REPORT * ML=Testing performed at Main Lab DEPARTMENT OF PATHOLOGY, [address] [place] [address] John Andrews M.D. Director [facility] # [id number] 28 SOURCE: BRONCHOALVEOLAR LAVAGE, LEFT UPPER LOBE LAVAGE MYCOBACTERIAL CULTURE FINAL No growth after 60 days of incubation. Test Performed by: [address] [address] 29 Because ethnic data is not always [...] 5 Kidney failure <15 (or dialysis) 30 [id number] 32 Because ethnic data is not always readily [...] 15-29 5 Kidney failure <15 (or dialysis) 33 [id number] 34 [id number] 36 Reference Range and Interpretation: TnI (ng/mL) [...] (or dialysis) 38 SEE RESULT BELOW Name: JOSEFAALYSIA Wilder : [address]: Manuela Lopez MD Acct: [id number] Unit: [id number] AGE: 40 Location: ED Re11/23/15 SEX: F Status: DEP ER SPEC: [id number] YOANA: 11/23/[address] [facility] [address]: Manuela Lopez MD REQ: [id number] RECD: 11/23/15 STATUS: AALIYAH JEWELL DR: Claudio Gauthier MD _ SOURCE: URINE SPDESC: ORDERED: Urine Culture Procedure Result Reported Site Urine Culture Final 11/25/15- 0807 ML No growth of clinically significant organisms * ML - MAIN LAB ([facility]) . END OF REPORT * ML=Testing performed at Main Lab DEPARTMENT OF PATHOLOGY, [address] [place] [address] John Andrews M.D. Director [facility] # [id number] 39 Comment: 23:30 please 40 Reference Range and Interpretation: TnI (ng/mL) Interpretation Less Than 0.03 ng/mL Not supportive of diagnosis of [place] 0.03 - 0.50 ng/mL Indeterminate: suggest serial studies if clinically indicated. Greater than 0.5 ng/mL Consistent with diagnosis of [place] 41 SEE RESULT BELOW Name: ALYSIA ADEN : [address]: Claudio Gauthier MD Acct: [id number] Unit: [id number] AGE: 40 Location: [facility] Re11/04/15 SEX: F Status: REG REF SPEC: [id number] YOANA: 11/04/[address] [facility] [address]: Claudio Gauthier MD REQ: [id number] RECD: 11/04/15 STATUS: COMP _ SOURCE: URINE [facility]: ORDERED: Urine Culture Procedure Result Reported Site Urine Culture Final 11/06/15- 0901 ML Organism 1 KLEBSIELLA PNEUMONIAE [place] Count 10-25,000 (Moderate) CFU/ML Organism 2 NORMAL ALEXANDER [place] Count 10-25,000 (Moderate) CFU/ML 1. KLEBSIELLA PNEUMONIAE [...] antibiotic reporting. * ML - MAIN LAB ([facility]) . END OF REPORT * ML=Testing performed at Main Lab DEPARTMENT OF PATHOLOGY, [address] [place] [address] John Andrews M.D. Director [facility] # [id number] 42 Because ethnic data is not always [...] levels of up to 20 mIU/mL 44 [facility] Severe Sepsis and Septic Shock Management [...] and in selective patients <6.0%.Please refer to [place] [employer] Diabetic care guidelines for further [...] dialysis) Procedures Date Code Description Status 01/16/2018 31775 Nebulizer Treatment Completed 07/31/2017 66015 Nebulizer Treatment Completed 09/20/2016 89983 Spirometry Completed 06/23/2016 03907 EKG, at Least 12 Leads w/Interpretation and Report Completed 11/04/2015 35459 EKG, at Least 12 Leads w/Interpretation and Report Completed Encounters Type Date Location Provider Dx Diagnosis Office Visit 03/27/2018 Main Office Claudio Gauthier F17.210 Nicotine dependence, 9:30a cigarettes, uncomplicated J44.1 Chronic obstructive pulmonary disease w (acute) exacerbation Z23 Encounter for immunization Office Visit 03/23/2018 11:45a Main Office Perla Hwang44.1 Chronic obstructive Slim Vasquez pulmonary disease w (acute) exacerbation Office Visit 01/16/2018 11:00a Main Office Claudio R07.89 Other chest pain MD Disha J44.1 Chronic obstructive pulmonary disease w (acute) exacerbation Office Visit 12/21/2017 8:45a Main Office Claudio M54.5 Low back pain MD Disha Office Visit 12/01/2017 9:45a Main Office Marah Lockett S93.601A Unspecified sprain Storm, [employer] of right foot, initial encounter Office Visit 07/31/2017 10:30a Main Office Denys Dalal J44.1 Chronic III, [employer] obstructive pulmonary disease w (acute) exacerbation Office [...] Main Office Claudio Gauthier, Z00.8 Encounter for MD other general examination J44.9 Chronic obstructive pulmonary [...] Visit 05/17/2016 4:15p Main Office Claudio Gauthier H66.91 Otitis media, MD unspecified, right ear J44.9 Chronic obstructive pulmonary disease, unspecified M54.5 Low back pain Office Visit 05/05/2016 Main Office Mally Jarrett, J01.90 Acute sinusitis , 4:30p [employer] unspecified Office Visit 03/22/2016 Main Office Claudio [...] Claudio Gauthier, S29.001A Unsp injury of MD ferreiral/tnd of front wall of thorax, init J18.9 Pneumonia, unspecified organism K21.9 Gastro-esophageal reflux disease without esophagitis Office Visit 07/28/2015 10:00a Main Office Claudio Gauthier J01.90 Acute sinusitis, unspecified Office Visit 07/19/2015 8:00a Main Office Claudio Gauthier, Z00.8 Encounter for MD other general examination I10 Essential (primary) hypertension Z72.0 Tobacco use M54.5 Low back pain Office Visit 05/17/2015 9:00a Main Office Claudio Gauthier, F17.213 Nicotine dependence, cigarettes, with withdrawal M54.5 Low back pain I60.9 Nontraumatic subarachnoid hemorrhage, unspecified Office Visit 04/14/2015 9:15a Main Office Claudio Gauthier MD Z72.0 Tobacco use M54.5 Low back pain I10 Essential (primary) hypertension I60.9 Nontraumatic subarachnoid hemorrhage, unspecified Z23 Encounter for immunization Plan of Treatment 04/03/2018 - Claudio Gauthier MDJ44.1 Chronic obstructive pulmonary disease with (acute) exacerbatNew Medication:Nebulizer - use to deliver inhaled medications for COPDComments:she is now on a new antibiotic as well as her steroid.She is able to breathe. It is not clear if shewill be able to go back to work in her current condition. She would like to try.We reviewed today that if she continues to smoke, she can expect a progressive worsening of her COPD symptoms, and a decline in her breathing function and quality of life. For now we will keep her on the extensive medical COPD regimen she is on. She reports that her home nebulizer has not been working well lately. She is not getting the same relief from it, and also is not making the same noise. I gave her a dose of dualnebs in the office which improved her symptoms greatly, as well as raising her oxygen status up to 91%. I also printed out a prescription for a new nebulizer for her.
[2018-04-18 17:35] LABS: Hematocrit 49 % (35-47); Hemoglobin 16.2 g/dl (12.0-16.0); Mean Corpuscular HGB Conc 33 g/dl (31-36); Mean Corpuscular Hemoglobin 28 pg (27-31); Mean Corpuscular Volume 85 fL (80-97); Mean Platelet Volume 9.5 um3 (7.4-10.4); Platelet Count 136 10^3/ul (150-450); Red Blood Count 5.75 10^6/ul (4.00-5.40); Red Cell Distribution Width 16 % (10.5-15); White Blood Count 10.4 10^3/ul (3.5-10.8)
[2018-04-18 17:40] LABS: INR 0.88 (0.77-1.02)
[2018-04-18 17:52] LABS: EGFR Non-African American 61.7 (>60)
--- NOTE | 2018-04-18 17:56 | RAD ---
INDICATION: Altered mental status COMPARISON: Most recent comparison chest x-ray April 07, 2018 TECHNIQUE: Single AP portable view of the chest was obtained. FINDINGS: Image quality is compromised due to the relative inferiority of a portable chest x-ray. There is a mild degree of cardiomegaly and patchy densities overlying the bilateral lungs. The appearance of patchy densities is similar to the most recent April 07, 2018 chest x-ray. Visualized bones are normal for the patient's age. IMPRESSION: Appearance of interstitial lung disease is similar to recent prior imaging.
[2018-04-18 17:58] LABS: ABS Basophils 0.1 10^3/ul (0-0.2); ABS Eosinophils 0 10^3/ul (0-0.6); ABS Lymphocytes 1.8 10^3/ul (1.0-4.8); ABS Monocytes 1.8 10^3/ul (0-0.8); ABS Neutrophils 6.6 10^3/ul (1.5-7.7)
[2018-04-18 18:03] LABS: ABS Basophils 0 10^3/ul (0-0.2); ABS Neutrophils 6.6 10^3/ul (1.5-7.7); Monocytes % 12 % (0-7)
--- NOTE | 2018-04-18 18:49 | RAD ---
EXAM: CT Head Without Intravenous Contrast EXAM DATE/TIME: 04/18/2018 6:32 PM CLINICAL HISTORY: 42 years old, female; Signs and symptoms; Other: Altered mental status; Prior surgery; Surgery type: Aneurysm clipped; Additional info: Altered mental status, HX brain aneurysm clipped TECHNIQUE: Axial computed tomography images of the head/brain without intravenous contrast. All CT scans at this facility use at least one of these dose optimization techniques: automated exposure control; mA and/or kV adjustment per patient size (includes targeted exams where dose is matched to clinical indication); or iterative reconstruction. COMPARISON: BRAIN WO CT BRAIN WO 03/03/2017 9:37 PM FINDINGS: Brain: Normal. No hemorrhage. No significant white matter disease. No edema. Ventricles: Normal. No ventriculomegaly. Bones/joints: Normal. No acute fracture. Sinuses: Mucosal thickening of the left sphenoid sinus, probable air fluid level. Mastoid air cells: Normal as visualized. No mastoid effusion. Soft tissues: Normal. Vasculature: Unchanged findings of probable stent at the right internal carotid artery in the cavernous portion. IMPRESSION: 1. No acute intracranial abnormality. 2. Unchanged finding of probable stent at the cavernous portion of right internal carotid artery. 3. Air-fluid level in the left sphenoid sinus unchanged, which may represent sinusitis. To contact [facility] with a general question: [facility] [place] [facility] - [phone] For direct physician to physician contact: Physician Hotline - [phone] [facility] ([facility] Facility ID #[id number])
[2018-04-18] MEDS ORDERED: Ondansetron INJ* 2 MG/ML VIAL IV PRN (19:42)
[2018-04-18] MEDS ORDERED: NS 0.9% 1000 ML* 2,000 ML IV ONE (19:42)
[2018-04-18] MEDS ORDERED: Acetaminophen TAB* 325 MG PO PRN (19:42)
[2018-04-18] MEDS ORDERED: Albuterol 2.5 MG/3 ML NEB.SOL* (0.083%) INH PRN ×2 (19:42→23:37)
[2018-04-18] MEDS ORDERED: NS 0.9% 1000 ML* 1,000 ML IV SCH (19:45)
[2018-04-18] MEDS ORDERED: Benzonatate CAP* 100 MG PO PRN (19:47)
[2018-04-18] MEDS ORDERED: Potassium Chlor TAB* 20 MEQ TAB.ER PO ONE (19:59)
[2018-04-18] MEDS ORDERED: predniSONE TAB* 20 MG PO SCH (20:00)
[2018-04-18] MEDS ORDERED: Aspirin 81 mg CHEW TAB* 81 MG TAB.CHEW PO ONE (20:12)
[2018-04-18 20:46] LABS: EGFR Non-African American 64.7 (>60)
[2018-04-18] MEDS ORDERED: BUDESONIDE 1 MG INH SCH (21:00)
[2018-04-18] MEDS: Albuterol/Ipratropium NEB.SOL* Albuterol 2.5 MG/Ipratropium 0.5 MG 3 ML INH SCH ×2 (23:07→23:31)
[2018-04-18] MEDS: Heparin VIAL(*) 5000 UNITS/ML VIAL (FIVE THOUSAND) SUBCUT SCH (23:20)
[2018-04-18] MEDS: risperiDONE TAB* 2 MG PO SCH (23:24)
[2018-04-18] MEDS: Mometasone/Formoter 200/5 MDI INH SCH (23:25)
[2018-04-19 00:48] LABS: Urine Appearance Cloudy; Urine Blood Negative (Negative); Urine Color Yellow; Urine Ketones Negative (Negative); Urine Protein Negative (Negative); Urine Urobilinogen Negative (Negative)
--- NOTE | 2018-04-19 04:32 | HP ---
CC: Dr. Gauthier * HISTORY AND PHYSICAL: DATE OF ADMISSION: 04/18/18 PRIMARY CARE PROVIDER: Dr. Claudio Gauthier. ATTENDING PHYSICIAN WHILE IN THE HOSPITAL: Ana Lilia Mercer MD * (report dictated by Eloy Covington NP) CHIEF COMPLAINT: Altered mental status. HISTORY OF PRESENT ILLNESS: Mrs. Aden is a 42-year-old female patient who has a history of bipolar disorder. She has a history of hypothyroidism, hypertension, COPD, and a history of interstitial lung disease. She was just here, discharged about last Sunday on 04/13/18. She was doing well initially. She was supposed to go home on BiPAP at night. She was discharged over the weekend and was going to be set up on Sunday. Unfortunately, the patient does not recall this and notes that she has not been wearing BiPAP at night and at times it has been noticed that her oxygen had fallen off. Her boyfriend, Andrew, has noticed this. The patient states that she notices that she has been confused. She has been having difficulty with repeating herself and intermittent confusion. This seems to correlate when her O2 is off. The boyfriend noted that last night she was trying to put her shoes on and instead of putting them on her feet, she kept trying to hand the shoe to her boyfriend. There have been no reports of slurred speech or facial drooping or weakness to one side. There has been no reports of chest pain. She does admit to having worsening shortness of breath again. She states she has been taking her nebs and her inhaler as prescribed, though she again has been noncompliant in times with her O2. In addition to this, also has not been wearing the BiPAP at night, which was recommended for the patient. She denied having any chest pain. She states that she does not know what her oxygen level was running. She states she has not been having any vomiting or diarrhea. She states that there has not been altered mental status and confusion and the boyfriend was concerned because it was not getting any better today. It was better last night when she had her oxygen level, it was not better today, so she decided to come into the hospital today to be evaluated. She denies again having any fevers or chills. PAST MEDICAL HISTORY: Significant for: 1. Bipolar. 2. Hypothyroid. 3. Hypertension. 4. COPD. 5. Interstitial lung disease. PAST SURGICAL HISTORY: 1. The patient has had a . 2. Tubal ligation. 3. She has had teeth extraction. 4. Cholecystectomy. 5. Appendectomy. 6. She has had a brain aneurysm repair and coil done in 2014. HOME MEDICATIONS: Include: 1. Seroquel 400 mg daily. 2. Xanax 1 mg p.o. t.i.d. as needed. 3. Lamictal 200 mg p.o. daily. 4. Tessalon 200 mg every 8 hours as needed. 5. Baclofen 20 mg p.o. 4 times a day as needed. 6. Aspirin 81 mg daily. 7. Risperdal 4 mg p.o. b.i.d. 8. Nicotine patch 1 patch transdermal daily. 9. Nicotine inhaler 10 mg inhaled every 2 hours as needed. 10. Toprol-XL 50 mg daily. 11. Synthroid 137 mcg p.o. daily. 12. Pulmicort 1 mg inhaled b.i.d. 13. DuoNeb 1 neb inhaled every 4 hours as needed. 14. Kendall 1 tablet p.o. t.i.d. as needed. 15. Dulera 2 puffs inhaled b.i.d. 16. She is on a prednisone taper taking as directed. ALLERGIES TO MEDICATIONS: Include DILANTIN and AUGMENTIN. FAMILY HISTORY: Mother had a history of COPD. Father's history is unknown. SOCIAL HISTORY: She is a pack and a half day smoker. She has been smoking since she was a teenager. She quit about 2 weeks ago with her last hospitalization. She does not drink alcohol. Surrogate decision maker is her mother, Beth. REVIEW OF SYSTEMS: There is no documented fever. She denied having any significant weight change. There was no double vision. She denies having any ear discharge. She denied having any rhinorrhea. There was no sore throat. No thyroid enlargement. She denied having any chest pain. There is no orthopnea. She does admit to dyspnea on exertion. There is no abdominal pain. There was no nausea, no vomiting, no dysuria, and no frequency. There was no seizure. There were no reports of loss of conscious. Review of 14 systems completed, all others negative. PHYSICAL EXAMINATION GENERAL: At this time, Mrs. Aden is a 42-year-old female patient. She appears to be older than stated age. She is sitting in the ED stretcher. She does not appear to be in any acute distress. VITAL SIGNS: Blood pressure 121/77, pulse 129, when she is at rest her respirations are 20, when she moves just around the bed, her respirations do get up into the 30s, O2 saturations when she presented were 90% and they did dip down to 89% on 4 L, they were 95%, heart rate 129, temperature 97.0. HEENT: Head: Atraumatic and normocephalic. Eyes: EOMs are intact. Sclerae anicteric, not pale. Throat: Oral mucosa appears to be dry. No oropharyngeal erythema. NECK: Supple. LUNGS: She had coarse breath sounds in the upper lobe. She did have some upper respiratory wheezing. She had decreased breath sounds in the lower lobes. Equal diaphragmatic expansion. HEART: Sounds S1, S2. She is tachycardic. No murmurs, rubs, or gallops. ABDOMEN: Soft, it was flat, it was nontender. Bowel sounds were present. EXTREMITIES: Pulses were 2+ throughout. She had no peripheral edema. She is moving all 4 extremities with 5/5 strength. NEUROLOGICAL: The patient is awake. She is alert. She is oriented x3. She had no focal deficits. [id number] and [id number] was intact bilaterally. She had no pronator drift. She had visual hatch were grossly intact and again, she knew the month, she knew the year, she knew why she was here. Again , no gross focal deficits. SKIN: Her skin was intact. DIAGNOSTIC STUDIES/LAB DATA: WBC of 10.4, RBC of 5.75, her hemoglobin was 16.2 when she was discharged it was 14, hematocrit was 49, platelet count was 139. Her INR was 0.88. Blood gas was 738, pCO2 of 63, her bicarb was 24. Sodium was 141, potassium 3.4, chloride of 103, bicarb was 24, BUN 20, creatinine 0.98, glucose 213, lactic 3.4, calcium 9.7, mag 1.9, total bili 0.5, AST 17, ALT 37, alk phos 85, ammonia was 38, troponin was 0.04, which is elevated from her baseline, she normally has 0.02. BMP was 64, TSH was 25.72, which is again elevated from previous measures. Toxicology was negative, although U-tox is pending. She had an EKG obtained today, which does show a sinus tachycardia with LVH. She had no ST elevation. She did have some depression in lead I along with lead II, which is new compared to her previous EKG. She had a chest x-ray obtained today as well, which showed appearance of interstitial lung disease similar to recent prior imaging. She had a brain CT obtained today, which revealed no acute intracranial pathology, unchanged findings of probable stent at the cavernous portion of the right internal carotid artery. Air fluid level on the left sphenoid sinus unchanged. Old medical records were reviewed. ASSESSMENT AND PLAN: Mrs. Aden is a 42-year-old female patient coming into the ED today with complaints of altered mental status. We were asked to evaluate for admission. She will be admitted under inpatient status: 1. Altered mental status. Etiology is unclear. It could be multifactorial. It could be secondary to polypharmacy. It also could be secondary to hypoxia. I do not see any focal deficits on my exam; however, she does have risk factors for cerebrovascular disease and she has had a history of an aneurysm. She is fortunately not having any headaches; however, I do think that she deserves an MRA of the head and MRI. If these are abnormal, I would get Neurology involved. I am also going to order an EEG as well. It sounds like these episodes are correlating and the fact when she is not wearing her oxygen and she was hypoxic. In here, she is improved, which is reassuring. Her CK was okay. Her lactic was elevated at 3.4. Again, no reports of incontinence and no reports of myoclonic type movement. I am going to place her in the ICU on Vapotherm because when she is moving, she does get significantly winded and short of breath, so I would like to get her on Vapotherm, BiPAP at night like she supposed to be wearing, aggressive nebulizers, and Dulera. I have ordered steroids. I am holding on antibiotics at this point as I do not see any obvious infection. We will check her for flu swab. In addition to this, we will also check a urine tox screen as well and will try to avoid sedating agents such as benzodiazepines and narcotics. 2. Bipolar disorder. Continue meds as described. 3. Hypothyroidism. I do note that her TSH is 25. Checking her T3 and T4 levels, she may need to have this adjusted. 4. Hypertension. Continue meds as prescribed. 5. History of chronic obstructive pulmonary disease, interstitial lung disease. Again, she does appear to still having exacerbation. I am going to get her on the Vapotherm. I have ordered nebs, steroids, inhaled steroids, and I will continue to follow. 6. DVT prophylaxis. I have ordered heparin subcu. 7. Code status is full code. 8. Fluids, electrolytes, and nutrition: She can have a heart healthy diet. 9. Acute kidney injury. She does appear to be significantly dehydrated. She is heme concentrated. I am going to give her 2 L of fluid bolus wide open and normal saline at 100 an hour and we will continue to monitor this. 10. Hypokalemia. I am replacing. 11. Lactic acidosis. I am panculturing her. I will send off blood cultures. We did get a urine as well and we will try to get sputum if possible, but again holding on antibiotics unless she spikes a fever or shows any other signs of sepsis, which she is not exhibiting this now. 12. Elevated troponin. Again, this could be demand ischemia from possible hypoxia. I am trending these. She is not having any chest pain. I do note the new ST depression, which is subtle in lead I and lead II. I am going to get an echo, cycle her troponins, it could be rate related as the fact when we got her EKG she was going at 112 beats a minute and again unfortunately she is chest pain free, so we will monitor. She is on aspirin therapy, beta-manda already and again will trend these troponins. If they elevate, I will have low threshold for Cardiology consult. In addition to this, heparin drip. 13. Fluids, electrolytes, and nutrition: Regular diet. TIME SPENT: Time spent on the admission 60 minutes, greater than half time spent greater than half the time spent [id number] with the patient obtaining my history and physical, other half time was spent going over the plan of care with the patient and implementing plan of care. I did discuss the plan of care with my attending physician, Dr. Mercer, she is in agreement. ELOY COVINGTON NP [id number]/[facility] #: [id number] ELIAZAR
[2018-04-19] MEDS: Heparin VIAL(*) 5000 UNITS/ML VIAL (FIVE THOUSAND) SUBCUT SCH ×3 (05:49→20:49)
[2018-04-19] MEDS ORDERED: Levothyroxine TAB* 137 MCG TAB PO SCH (06:00)
[2018-04-19 06:04] LABS: Hematocrit 42 % (35-47); Mean Corpuscular HGB Conc 33 g/dl (31-36); Mean Corpuscular Hemoglobin 28 pg (27-31); Mean Corpuscular Volume 86 fL (80-97); Mean Platelet Volume 9.8 um3 (7.4-10.4); Platelet Count 114 10^3/ul (150-450); Red Blood Count 4.95 10^6/ul (4.00-5.40); Red Cell Distribution Width 16 % (10.5-15); White Blood Count 9.4 10^3/ul (3.5-10.8)
[2018-04-19 06:19] LABS: ABS Basophils 0.1 10^3/ul (0-0.2); ABS Eosinophils 0 10^3/ul (0-0.6); ABS Lymphocytes 1.1 10^3/ul (1.0-4.8); ABS Monocytes 1.6 10^3/ul (0-0.8); ABS Neutrophils 6.6 10^3/ul (1.5-7.7); ABS Nucleated RBC 0 10^3/ul; Eosinophil % 0.2 % (0-6); Nucleated Red Blood Cells % 0
[2018-04-19 06:25] LABS: EGFR Non-African American 73.7 (>60)
[2018-04-19] MEDS: predniSONE TAB* 20 MG PO SCH (08:23)
[2018-04-19] MEDS: risperiDONE TAB* 2 MG PO SCH ×2 (08:24→20:50)
[2018-04-19] MEDS: Aspirin EC TAB* 81 MG TAB.EC PO SCH (08:24)
[2018-04-19] MEDS: Baclofen TAB* 20 MG PO PRN (08:25)
[2018-04-19] MEDS: Metoprolol Succinate XL TAB* 50 MG PO SCH (08:25)
[2018-04-19] MEDS ORDERED: ALPRAZolam TAB* 0.5 MG PO PRN (08:32)
[2018-04-19] MEDS: Mometasone/Formoter 200/5 MDI INH SCH ×2 (08:58→19:10)
[2018-04-19] MEDS: Hydrocodone/Acetamin 10/325 1 TAB PO PRN ×2 (09:47→20:49)
--- NOTE | 2018-04-19 10:37 | ECHO ---
Patient: LAURIE RIVERO [facility] Rec#: [id number] : 1975 Date: 04/19/2018 Age: 42y Height: 170 cm / 66.9 in Weight: 109 kg / 240.2 lbs Sex: F BSA: 2.18 Room#: ICU 8 Admit Date#: 04/18/2018 Type: Inpatient Referring: Eloy Covington NP Reading: Kwaku Lyman MD Car Rider: Dora Vergara RN RDCS CC: Claudio Gauthier Transthoracic Echocardiogram Indication: Abnormal EKG BP: 125/82 HR: 89 Rhythm: NSR Findings History: HTN, hypothyroid, COPD, smoker, GONZALO, obesity. Technical Comments: The study quality is fair. The study is technically limited due to patient body habitus. The study is technically limited due to the patient's history of COPD. Completed at 0850. Left Ventricle: The left ventricular chamber size is normal. Mild concentric left ventricular hypertrophy is observed. There is increased basal septal hypertrophy noted without evidence of an increased gradient across the left ventricular outflow tract. Mildly increased velocities in the mid cavity (2 mps) and in the LVOT c/w the hyperdynamic state and mild dynamic LVOT obstruction. Chordal RUBA noted. Global left ventricular wall motion and contractility are within normal limits. The left ventricle appears hyperdynamic. The estimated ejection fraction is greater than 65%. Abnormal left ventricular diastolic function is observed. Abnormal left ventricular diastolic filling is observed, consistent with impaired relaxation. Left Atrium: The left atrium is slightly dilated. Right Ventricle: The right ventricle is not well visualized. The right ventricular cavity size is normal. The right ventricle wall thickness is mildly increased. The right ventricular global systolic function is low normal. Right Atrium: The right atrium is slightly dilated. Aortic Valve: The aortic valve structure is not well visualized. The aortic valve leaflets are mildly thickened. There is no evidence of aortic regurgitation. There is no evidence of aortic stenosis. Mitral Valve: The mitral valve leaflets are mildly thickened. There is trace to mild mitral regurgitation. There is no evidence of mitral stenosis. Tricuspid Valve: The tricuspid valve leaflets are normal. There is trace tricuspid regurgitation. Unable to estimate the right ventricular systolic pressure. There is no tricuspid stenosis. Pulmonic Valve: The pulmonic valve structure is not well visualized. Pericardium: There is no significant pericardial effusion. A pericardial fat pad is visualized. Aorta: There is no dilatation of the ascending aorta. There is no dilatation of the aortic arch. There is no dilation of the aortic root. Pulmonary Artery: The main pulmonary artery is not well visualized. Venous: The venous system is not well visualized. The inferior vena cava is not visualized. Summary: There was not any prior study for comparison. Conclusions The study is technically limited due to patient body habitus. Mild concentric left ventricular hypertrophy is observed. There is increased basal septal hypertrophy noted without evidence of an increased gradient across the left ventricular outflow tract. Mildly increased velocities in the mid LV cavity (2 mps) and in the LVOT c/w the hyperdynamic state and mild dynamic LVOT obstruction. Chordal RUBA noted. The left ventricle appears hyperdynamic. The estimated ejection fraction is greater than 65%. Abnormal left ventricular diastolic filling is observed, consistent with impaired relaxation. The left atrium is slightly dilated. The right ventricle wall thickness is mildly increased. The right ventricular global systolic function is low normal. The right atrium is slightly dilated. The aortic valve leaflets are mildly thickened. There is trace to mild mitral regurgitation. There is trace tricuspid regurgitation. Measurements Name Value Normal Range RVDdMajor (2D) 3.1 cm (2.2 - 4.4) RAd ISD 4CH 5 cm (3.4 - 4.9) RA (A4C)W 3.5 cm (2.9 - 4.6) IVSd (2D) 1.3 cm (0.6 - 1) LVPWd (2D) 1.1 cm (0.6 - 1) LVIDd (2D) 4 cm (3.6 - 5.4) LVIDs (2D) 2.3 cm - LV FS (2D) 43 % (25 - 45) Aortic Annulus 1.7 cm (1.4 - 2.6) Ao root diameter (2D) 2.6 cm (2.1 - 3.5) Ascending Ao 3.1 cm (2.1 - 3.4) Aortic arch 2.1 cm (1.8 - 3.4) LA dimension (AP) 2D 3.3 cm (2.3 - 3.8) LAd ISD 4CH 5.5 cm (2.9 - 5.3) LA ISD 4CH W 3.2 cm (2.5 - 4.5) Name Value Normal Range LA ESV BP (A/L) index 14.1 ml/m2 - Name Value Normal Range MV E-wave Vmax 0.72 m/sec - MV deceleration time 373 msec - MV A-wave Vmax 0.9 m/sec - MV E:A ratio 0.8 ratio - LV septal e' Vmax 0.06 m/sec - LV lateral e' Vmax 0.07 m/sec - LV E:e' septal ratio 12 ratio - LV E:e' lateral ratio 10.3 ratio - Name Value Normal Range AV Vmax 1.8 m/sec - AV VTI 33.5 cm - AV peak gradient 13 mmHg - AV mean gradient 7 mmHg - LVOT Vmax 1.6 m/sec - LVOT VTI 28.9 cm - LVOT peak gradient 10 mmHg - LVOT mean gradient 6 mmHg - JAMEEL Vmax 1.3 m/sec -
--- NOTE | 2018-04-19 11:49 | RAD ---
HISTORY: AMS history of aneurysm COMPARISONS: January 01, 2013 , CT dated April 18, 2018 TECHNIQUE: The following sequences were obtained of the head: Sagittal T1-weighted images, axial T2-weighted images, axial FLAIR images, axial susceptibility weighted images, axial T1-weighted images. Additionally, axial diffusion-weighted images were obtained with calculated apparent diffusion coefficients. FINDINGS: HEMORRHAGE/INFARCT: There is no hemorrhage or acute infarct. MASSES/SHIFT: There is no mass or shift. EXTRA-AXIAL SPACES/MENINGES: There are no extra-axial fluid collections. SULCI AND VENTRICLES: The sulci and ventricles are normal in size and position for the patient's stated age. CEREBRUM: There are no focal parenchymal abnormalities. BRAINSTEM: There are no focal parenchymal abnormalities. CEREBELLUM: There are no focal parenchymal abnormalities. The cerebellar tonsils are normal in size and position. SELLA: The sella is normal. PINEAL: The pineal region is clear. CP ANGLE/TEMPORAL BONES: The labyrinthine structures are grossly normal. VESSELS: Normal flow-voids are noted within the visualized vertebral vasculature. DIFFUSION ABNORMALITIES: There are no diffusion abnormalities. PARANASAL SINUSES/MASTOIDS: There are mucus retention cysts of the right maxillary sinus and left sphenoid sinus. ORBITS: The orbits are unremarkable. BONES AND SOFT TISSUE: No bone or soft tissue abnormalities are noted. OTHER: None IMPRESSION: MILD SINUS MUCOSAL INFLAMMATORY DISEASE, WITHOUT AIR-FLUID LEVEL TO SUGGEST ACUTE SINUSITIS. OTHERWISE, UNREMARKABLE MRI OF THE BRAIN
--- NOTE | 2018-04-19 11:52 | RAD ---
HISTORY: AMS hx aneurysm COMPARISONS: MRA dated October 27, 2016, , head CT dated April 18, 2018, CT angiogram dated July 15, 2016 TECHNIQUE: 3-D axial [id number] MR angiography was performed of the head to include the knik of Jonas. Multiple 3-D maximum intensity projection reconstructions are also submitted for review. FINDINGS: RIGHT VERTEBRAL ARTERY: The right vertebral artery terminates in the right posterior inferior cerebellar artery. LEFT VERTEBRAL ARTERY: The distal left vertebral artery is unremarkable, without stenosis. DOMINANCE: The left vertebral artery is dominant. DISTAL RIGHT CERVICAL INTERNAL CAROTID ARTERY: The distal right cervical internal carotid artery is unremarkable. The right cavernous and supraclinoid internal carotid artery stent noted on previous CT angiography is not well-visualized on MR angiography. DISTAL LEFT CERVICAL INTERNAL CAROTID ARTERY: The distal left cervical internal carotid artery is unremarkable. INTRACRANIAL CIRCULATION: There is no aneurysm, vascular malformation, occlusion, or stenosis of the visualized intracranial circulation. The anterior communicating artery complex is clear. Bilateral posterior communicating arteries are identified. OTHER FINDINGS: None IMPRESSION: NO ANEURYSM, VASCULAR MALFORMATION, OCCLUSION, OR STENOSIS OF THE VISUALIZED INTRACRANIAL CIRCULATION.
[2018-04-19] MEDS: Albuterol/Ipratropium NEB.SOL* Albuterol 2.5 MG/Ipratropium 0.5 MG 3 ML INH PRN (15:56)
--- NOTE | 2018-04-19 18:37 | PN ---
Subjective Date of Service: 04/19/18 Interval History: Pt seen and examined. Meds and labs reviewed. Pt mentions she started getting confused when she thought that her O2 was on, but really wasnt CC: N/A ROS: Denied ENCISO/dizziness, F/C, N/V, CP, SOB, increased cough, sputum production , abd pain, diarrhea, constipation, dysuria, myalgias, arthralgias, throat pain , and new skin lesions. The rest of the 14 point ROS are unremarkable. PHYSICAL EXAM: GEN APPEARANCE: Awake, not in acute distress, oriented x3, Obese HEENT: NC/AT, PERRLA, moist oral mucosa, (-) throat erythema NECK: Soft, supple, (-) cervical LAD, (-)JVD HEART: S1S2 WNL, RRR, No MRG CHEST: CTA, BL, GAE, No W/R/R ABD: Soft, ND/NT, NABS 4x Q EXT: No C/C/E SKIN: Warm to touch PSYCH: No active psychosis, hallucinations, depression, SI/HI Objective Active Medications: Acetaminophen (Tylenol Tab*) 650 mg PO Q4H PRN PRN Reason: FEVER/PAIN Hydrocodone Bitart/Acetaminophen (Shiner 10/325 (Nf)) 1 tab PO TID PRN PRN Reason: PAIN Last Admin: 04/19/18 09:47 Dose: 1 tab Albuterol/Ipratropium (Duoneb (Albuterol 2.5 Mg/Ipratropium 0.5 Mg)) 1 neb INH Q4H PRN PRN Reason: SOB/WHEEZING Last Admin: 04/19/18 15:56 Dose: 1 neb Alprazolam (Xanax Tab*) 0.5 mg PO TID PRN PRN Reason: Anxiety Aspirin (Aspirin Ec Tab*) 81 mg PO DAILY DANIELA Last Admin: 04/19/18 08:24 Dose: 81 mg Baclofen (Lioresal Tab*) 20 mg PO QID PRN PRN Reason: SPASMS Last Admin: 04/19/18 08:25 Dose: 20 mg Benzonatate (Tessalon Cap*) 200 mg PO Q8H PRN PRN Reason: COUGH Heparin Sodium (Porcine) (Heparin Vial(*)) 5,000 units SUBCUT Q8HR [facility] Last Admin: 04/19/18 15:43 Dose: Not Given Levothyroxine Sodium (Synthroid Tab*) 150 mcg PO 0600 [facility] Metoprolol Succinate (Toprol Xl Tab*) 50 mg PO DAILY [facility] Last Admin: 04/19/18 08:25 Dose: 50 mg Mometasone Furoate/Formoterol Fumar (Dulera 200/5 Mdi*) 2 puff INH BID [facility] Last Admin: 04/19/18 08:58 Dose: 2 puff Ondansetron HCl (Zofran Inj*) 4 mg IV Q6H PRN PRN Reason: NAUSEA Prednisone (Deltasone Tab*) 60 mg PO 0900 [facility] Last Admin: 04/19/18 08:23 Dose: 60 mg Quetiapine Fumarate (Seroquel Tab*) 400 mg PO BEDTIME [facility] Risperidone (Risperdal*) 4 mg PO BID [facility] Last Admin: 04/19/18 08:24 Dose: 4 mg Vital Signs - 8 hr 04/19/18 04/19/18 04/19/18 11:20 11:25 11:31 Temperature Pulse Rate 81 87 89 Respiratory 12 Rate Blood Pressure 141/112 127/99 (mmHg) O2 Sat by Pulse 93 91 90 Oximetry 04/19/18 04/19/18 04/19/18 12:00 12:01 12:58 Temperature Pulse Rate 83 82 81 Respiratory 18 Rate Blood Pressure 134/106 134/106 (mmHg) O2 Sat by Pulse 89 89 90 Oximetry 04/19/18 04/19/18 04/19/18 13:00 13:01 13:25 Temperature 96.5 F Pulse Rate 89 94 Respiratory 17 Rate Blood Pressure 158/142 (mmHg) O2 Sat by Pulse 87 91 Oximetry 04/19/18 04/19/18 04/19/18 14:00 14:01 15:00 Temperature Pulse Rate 87 105 Respiratory 17 17 14 Rate Blood Pressure 138/82 (mmHg) O2 Sat by Pulse 90 90 Oximetry 04/19/18 04/19/18 04/19/18 15:39 15:54 16:00 Temperature 98 F Pulse Rate 93 84 83 Respiratory 14 18 14 Rate Blood Pressure 132/93 (mmHg) O2 Sat by Pulse 88 94 96 Oximetry 04/19/18 04/19/18 04/19/18 16:01 17:00 17:01 Temperature Pulse Rate 90 84 83 Respiratory 17 32 26 Rate Blood Pressure 146/82 146/79 (mmHg) O2 Sat by Pulse 94 95 96 Oximetry 04/19/18 04/19/18 04/19/18 17:57 18:00 18:01 Temperature Pulse Rate 91 95 Respiratory 18 Rate Blood Pressure 147/78 (mmHg) O2 Sat by Pulse 95 93 Oximetry Oxygen Devices in Use Now: High Flow Heated Nasal Cannula Result Diagrams: 04/19/18 05:55 04/19/18 05:55 Microbiology and Other Data: Microbiology 04/18/18 22:20 Nasal Screen MRSA (PCR) - Final Nasal Mrsa Not Detected 04/19/18 00:30 Legionella Urinary Antigen - Final Urine Negative Legionella Antigen Streptococcus pneumoniae Ag Screen - Final Negative S. pneumo Antigen 04/18/18 22:20 Influenza Types A,B Antigen - Final Nasal Specimen received for Influenza A/B Molecular testing Assess/Plan/Problems-Billing Assessment: - Patient Problems (1) Altered mental status Current Visit: Yes Status: Acute Code(s): R41.82 - ALTERED MENTAL STATUS, UNSPECIFIED SNOMED Code(s): 837156719 Comment: -Likely due to hypoxia given pt thought her O2 was on but wasnt at home -Set up for BiPAP on last admission but pt seems to mention that she does not have a machine she uses at night -Continue BiPAP qHS -EEG per Dr. Dunlap shows diffuse slowing which certain is consistent with her hx of hypoxia due to improperly using O2 machine -MRI of head and MRA of H&N: NAD intracranial abnormalities; although mild sinusitis found incidentally (2) Bipolar disorder Current Visit: Yes Status: Acute Comment: -Stable -Continue Risperidone and Quetiapine (3) Hypothyroidism Current Visit: No Status: Chronic Code(s): E03.9 - HYPOTHYROIDISM, UNSPECIFIED SNOMED Code(s): 25962528 Comment: -TSH elevated -Will increase Levothyroxine to 150 ug -Repeat TFTs in 6 wks (4) HTN (hypertension) Current Visit: No Status: Chronic Code(s): I10 - ESSENTIAL (PRIMARY) HYPERTENSION SNOMED Code(s): 38733180 Comment: -Continue Metoprolol (5) DVT prophylaxis Current Visit: No Status: Acute Code(s): BHJ4721 - SNOMED Code(s): 471122978 Comment: -Continue Heparin SQq8H Status and Disposition: -Transfer out of ICU if consistently doing well on NC at 6L or better
[2018-04-19] MEDS: QUEtiapine TAB* 100 MG PO SCH (20:49)
[2018-04-20 04:52] LABS: ABS Basophils 0 10^3/ul (0-0.2); ABS Eosinophils 0 10^3/ul (0-0.6); ABS Lymphocytes 0.9 10^3/ul (1.0-4.8); ABS Neutrophils 5.1 10^3/ul (1.5-7.7); ABS Nucleated RBC 0 10^3/ul; Eosinophil % 0.1 % (0-6); Hematocrit 40 % (35-47); Lymphocyte % 12.2 % (25-47); Mean Corpuscular HGB Conc 33 g/dl (31-36); Mean Corpuscular Hemoglobin 28 pg (27-31); Mean Corpuscular Volume 86 fL (80-97); Mean Platelet Volume 9.2 fL (7.4-10.4); Nucleated Red Blood Cells % 0.1; Platelet Count 112 10^3/ul (150-450); Red Blood Count 4.61 10^6/ul (4.00-5.40); Red Cell Distribution Width 16 % (10.5-15); White Blood Count 7.1 10^3/ul (3.5-10.8)
[2018-04-20 05:07] LABS: EGFR Non-African American 95.6 (>60)
--- NOTE | 2018-04-20 06:06 | EEG ---
ELECTROENCEPHALOGRAPHY REPORT: DATE OF STUDY: DURATION OF THE STUDY: 6320 - 6895. ORDERED BY: Eloy Covington NP MEDICATIONS: 1. Aspirin. 2. Toprol. 3. Dulera. 4. Deltasone. 5. Risperdal. 6. Heparin. 7. Seroquel. 8. Synthroid. 9. Tylenol. 10. DuoNeb. 11. Lioresal. 12. Tessalon. 13. Zofran. CLINICAL PROBLEM: The patient is a 42-year-old female, who is admitted to the ICU after being found at home acting abnormally. The patient was last known well on 04/18/18 at 4 a.m. The patient has in comprehensible speech. The patient wears oxygen and a family member noticed that she was not wearing her oxygen. She is also complaining of short-term memory when speaking and having trouble making co mplete sentences. The patient's mother has history of generalized tonic-clonic seizures. This EEG w as obtained to evaluate for epileptiform abnormalities or electrographic seizures. REPORT: The background consisted of mixed frequency slowing in the theta and delta range with the wa lei periods of appropriate organization and clearly defined anterior posterior voltage gradient. Th e majority of the recording was obtained in drowsy state. There was a brief waking slow background r hythm of about 8 Hz, which was symmetrical and showed normal reactivity. Attenuation of the occipita l rhythm accompanied drowsiness. Occasionally, the delta slowing had a triphasic morphology mostly s een in the frontal region bilaterally. There were no clear electrographic seizures. Photic stimulat ion and hyperventilation were not performed. EKG showed a normal sinus rhythm with a rate of 75 beats per minute. CLINICAL IMPRESSION: This is abnormal, predominantly drowsy EEG due to diffuse polymorphic slowing w ith rare triphasic waves. These findings are consistent with a mild-moderate, diffuse, nonspecific e ncephalopathy, which can be seen in the setting of toxic/metabolic, hypoxic encephalopathy, or as a r esult of sedation. There were no electrographic seizures. Clinical correlation is recommended. [id number]/[facility] #: [id number]
[2018-04-20] MEDS: Heparin VIAL(*) 5000 UNITS/ML VIAL (FIVE THOUSAND) SUBCUT SCH ×3 (06:19→21:51)
[2018-04-20] MEDS: Levothyroxine TAB* 150 MCG TAB PO SCH (06:20)
[2018-04-20] MEDS: Mometasone/Formoter 200/5 MDI INH SCH ×2 (08:18→19:25)
[2018-04-20] MEDS: predniSONE TAB* 20 MG PO SCH (08:44)
[2018-04-20] MEDS: Metoprolol Succinate XL TAB* 50 MG PO SCH (08:44)
[2018-04-20] MEDS: Aspirin EC TAB* 81 MG TAB.EC PO SCH (08:44)
[2018-04-20] MEDS: risperiDONE TAB* 2 MG PO SCH ×2 (08:44→21:51)
[2018-04-20] MEDS: Hydrocodone/Acetamin 10/325 1 TAB PO PRN (12:02)
--- NOTE | 2018-04-20 16:06 | PN ---
Subjective Date of Service: 04/20/18 Interval History: Pt seen and examined. Meds and labs reviewed. Pt desaturated again last night given pt has a habit of unconsciously removing her NC while shes asleep at night. Encouraged and discussed behavioral modification to reduce this habit. D/W Mother and significant other at bedside with pt at length. CC: NA ROS: Denied ENCISO/dizziness, F/C, N/V, CP, SOB, increased cough, sputum production , abd pain, diarrhea, constipation, dysuria, myalgias, arthralgias, throat pain , and new skin lesions. The rest of the 14 point ROS are unremarkable. PHYSICAL EXAM: GEN APPEARANCE: Awake, not in acute distress HEENT: NC/AT, PERRLA, moist oral mucosa, (-) throat erythema NECK: Soft, supple, (-) cervical LAD, (-)JVD HEART: S1S2 WNL, RRR, No MRG CHEST: CTA, BL, GAE, No W/R/R ABD: Soft, ND/NT, NABS 4x Q EXT: No C/C/E SKIN: Warm to touch PSYCH: No active psychosis, hallucinations, depression, SI/HI Objective Active Medications: Acetaminophen (Tylenol Tab*) 650 mg PO Q4H PRN PRN Reason: FEVER/PAIN Last Admin: 04/20/18 15:26 Dose: 650 mg Hydrocodone Bitart/Acetaminophen (Carey 10/325 (Nf)) 1 tab PO TID PRN PRN Reason: PAIN Last Admin: 04/20/18 12:02 Dose: 1 tab Albuterol/Ipratropium (Duoneb (Albuterol 2.5 Mg/Ipratropium 0.5 Mg)) 1 neb INH Q4H PRN PRN Reason: SOB/WHEEZING Last Admin: 04/19/18 15:56 Dose: 1 neb Alprazolam (Xanax Tab*) 0.5 mg PO TID PRN PRN Reason: Anxiety Aspirin (Aspirin Ec Tab*) 81 mg PO DAILY DANIELA Last Admin: 04/20/18 08:44 Dose: 81 mg Baclofen (Lioresal Tab*) 20 mg PO QID PRN PRN Reason: SPASMS Last Admin: 04/19/18 08:25 Dose: 20 mg Benzonatate (Tessalon Cap*) 200 mg PO Q8H PRN PRN Reason: COUGH Heparin Sodium (Porcine) (Heparin Vial(*)) 5,000 units SUBCUT Q8HR [facility] Last Admin: 04/20/18 15:16 Dose: 5,000 units Levothyroxine Sodium (Synthroid Tab*) 150 mcg PO 0600 [facility] Last Admin: 04/20/18 06:20 Dose: 150 mcg Metoprolol Succinate (Toprol Xl Tab*) 50 mg PO DAILY [facility] Last Admin: 04/20/18 08:44 Dose: 50 mg Mometasone Furoate/Formoterol Fumar (Dulera 200/5 Mdi*) 2 puff INH BID [facility] Last Admin: 04/20/18 08:18 Dose: 2 puff Ondansetron HCl (Zofran Inj*) 4 mg IV Q6H PRN PRN Reason: NAUSEA Prednisone (Deltasone Tab*) 60 mg PO 0900 [facility] Last Admin: 04/20/18 08:44 Dose: 60 mg Quetiapine Fumarate (Seroquel Tab*) 400 mg PO BEDTIME [facility] Last Admin: 04/19/18 20:49 Dose: 400 mg Risperidone (Risperdal*) 4 mg PO BID [facility] Last Admin: 04/20/18 08:44 Dose: 4 mg Vital Signs - 8 hr 04/20/18 04/20/18 04/20/18 08:22 09:00 09:01 Temperature Pulse Rate 68 90 83 Respiratory 14 12 16 Rate Blood Pressure 107/77 (mmHg) O2 Sat by Pulse 90 97 92 Oximetry 04/20/18 04/20/18 04/20/18 10:00 10:01 11:00 Temperature Pulse Rate 76 81 76 Respiratory 15 17 29 Rate Blood Pressure 112/79 (mmHg) O2 Sat by Pulse 91 91 92 Oximetry 04/20/18 04/20/18 04/20/18 11:01 12:00 12:01 Temperature 95.9 F Pulse Rate 77 92 90 Respiratory 20 22 Rate Blood Pressure 145/66 141/99 (mmHg) O2 Sat by Pulse 94 90 88 Oximetry 04/20/18 04/20/18 04/20/18 13:00 13:01 14:00 Temperature Pulse Rate 93 96 95 Respiratory 22 16 Rate Blood Pressure 139/95 (mmHg) O2 Sat by Pulse 92 92 90 Oximetry 11/03/18 11/03/18 14:02 15:00 Temperature Pulse Rate 93 84 Respiratory 19 Rate Blood Pressure 147/66 (mmHg) O2 Sat by Pulse 87 91 Oximetry Oxygen Devices in Use Now: High Flow Nasal Cannula Result Diagrams: 04/20/18 04:41 04/20/18 04:41 Microbiology and Other Data: Microbiology 04/18/18 22:20 Nasal Screen MRSA (PCR) - Final Nasal Mrsa Not Detected 04/19/18 00:30 Legionella Urinary Antigen - Final Urine Negative Legionella Antigen Streptococcus pneumoniae Ag Screen - Final Negative S. pneumo Antigen 04/18/18 22:20 Influenza Types A,B Antigen - Final Nasal Specimen received for Influenza A/B Molecular testing Assess/Plan/Problems-Billing Assessment: - Patient Problems (1) Altered mental status Current Visit: Yes Status: Acute Code(s): R41.82 - ALTERED MENTAL STATUS, UNSPECIFIED SNOMED Code(s): 793570792 Comment: -Likely due to hypoxia given pt thought her O2 was on but wasnt at home -Set up for BiPAP on last admission but pt seems to mention that she does not have a machine she uses at night---will touch base with Dr. Sebastian when nearing D/C to see where she is along the process; on previous D/C, Dr. Sebastian mentioned this will be available for pt after a few days -Continue BiPAP qHS -EEG per Dr. Dunlap shows diffuse slowing which certain is consistent with her hx of hypoxia due to improperly using O2 machine -MRI of head and MRA of H&N: NAD intracranial abnormalities; although mild sinusitis found incidentally (2) Bipolar disorder Current Visit: Yes Status: Acute Comment: -Stable -Continue Risperidone and Quetiapine (3) Hypothyroidism Current Visit: No Status: Chronic Code(s): E03.9 - HYPOTHYROIDISM, UNSPECIFIED SNOMED Code(s): 18720632 Comment: -TSH elevated -Will increase Levothyroxine to 150 ug -Repeat TFTs in 6 wks (4) HTN (hypertension) Current Visit: No Status: Chronic Code(s): I10 - ESSENTIAL (PRIMARY) HYPERTENSION SNOMED Code(s): 11575787 Comment: -Continue Metoprolol (5) DVT prophylaxis Current Visit: No Status: Acute Code(s): UWF0567 - SNOMED Code(s): 486534859 Comment: -Continue Heparin SQq8H Status and Disposition: -Transfer out of ICU if consistently doing well on NC at 6L or better
[2018-04-20] MEDS: QUEtiapine TAB* 100 MG PO SCH (21:51)
[2018-04-20] MEDS: ALPRAZolam TAB* 0.5 MG PO PRN (23:34)
[2018-04-21] MEDS: Levothyroxine TAB* 150 MCG TAB PO SCH (06:16)
[2018-04-21] MEDS: Heparin VIAL(*) 5000 UNITS/ML VIAL (FIVE THOUSAND) SUBCUT SCH ×3 (06:16→21:13)
[2018-04-21 06:40] LABS: Hematocrit 41 % (35-47); Hemoglobin 13.2 g/dl (12.0-16.0); Mean Corpuscular HGB Conc 33 g/dl (31-36); Mean Corpuscular Hemoglobin 28 pg (27-31); Mean Corpuscular Volume 86 fL (80-97); Mean Platelet Volume 9.8 fL (7.4-10.4); Platelet Count 123 10^3/ul (150-450); Red Cell Distribution Width 16 % (10.5-15); White Blood Count 7.5 10^3/ul (3.5-10.8)
[2018-04-21 06:56] LABS: EGFR Non-African American 92.4 (>60)
[2018-04-21] MEDS: Mometasone/Formoter 200/5 MDI INH SCH ×2 (07:03→19:02)
[2018-04-21 07:12] LABS: ABS Basophils 0.1 10^3/ul (0-0.2); ABS Eosinophils 0 10^3/ul (0-0.6); ABS Lymphocytes 1.1 10^3/ul (1.0-4.8); ABS Neutrophils 5.3 10^3/ul (1.5-7.7); ABS Nucleated RBC 0 10^3/ul; Eosinophil % 0.2 % (0-6); Lymphocyte % 15.4 % (25-47); Nucleated Red Blood Cells % 0
[2018-04-21] MEDS: predniSONE TAB* 20 MG PO SCH (08:12)
[2018-04-21] MEDS: risperiDONE TAB* 2 MG PO SCH ×2 (08:12→21:13)
[2018-04-21] MEDS: Metoprolol Succinate XL TAB* 50 MG PO SCH (08:12)
[2018-04-21] MEDS: Aspirin EC TAB* 81 MG TAB.EC PO SCH (08:12)
[2018-04-21] MEDS: Hydrocodone/Acetamin 10/325 1 TAB PO PRN ×2 (08:12→14:55)
[2018-04-21] MEDS: lamoTRIgine TAB(*) 100 MG PO SCH (09:48)
[2018-04-21] MEDS: Baclofen TAB* 20 MG PO PRN (14:55)
[2018-04-21] MEDS ORDERED: Iohexol 350* (CONTRAST) 500 ML MDV IV ONE (15:54)
[2018-04-21] MEDS ORDERED: Al Hydrox/Mg Hydrox/Simet LIQ* 30 ML UDC PO PRN (16:49)
--- NOTE | 2018-04-21 16:53 | RAD ---
INDICATION: "Slow progress despite normal lung sounds". Clinical concern for interstitial lung disease versus pulmonary embolism. Requisition also notes altered mental status. COMPARISON: Similar CT examination dated April 10, 2018 TECHNIQUE: Axial source images were acquired following the administration of 84 mL Omnipaque [address] angiographic technique. Coronal and sagittal reconstructed images were constructed and reviewed. FINDINGS: There there are no filling defects in the pulmonary arteries to indicate acute pulmonary embolic disease. Similar to the prior CTA there is diffuse interlobular septal thickening and increased attenuation of the interstitium. At the left lingula (image 32) there is a pleural-based density measuring 1.5 cm similar to the previous CT examination. This finding is morphologically most consistent with atelectasis. The heart is normal in size. There is no evidence of pericardial effusion. There is no evidence of aortic aneurysm or dissection. There is no mediastinal, hilar, or axillary lymphadenopathy. The visualized osseous structures appear normal. The liver is homogenously hypodense relative to the spleen. IMPRESSION: 1. No CT of evidence of pulmonary embolism. 2. The appearance of interstitial lung disease has not changed significantly since the April 10, 2018 CT of the chest. 3. Homogenously hypoattenuating liver could be seen in the setting of hepatic steatosis or other chronic infiltrative disease of the liver.
[2018-04-21] MEDS: Omeprazole CAP* 20 MG PO SCH (17:37)
--- NOTE | 2018-04-21 17:41 | PN ---
Subjective Date of Service: 04/21/18 Interval History: Pt seen and examined. Meds and labs reviewed. CC: N/A ROS: Denied ENCISO/dizziness, F/C, N/V, CP, SOB, increased cough, sputum production , abd pain, diarrhea, constipation, dysuria, myalgias, arthralgias, throat pain , and new skin lesions. The rest of the 14 point ROS are unremarkable. PHYSICAL EXAM: GEN APPEARANCE: Awake, not in acute distress, obese HEENT: NC/AT, PERRLA, moist oral mucosa, (-) throat erythema NECK: Soft, supple, (-) cervical LAD, (-)JVD HEART: S1S2 WNL, RRR, No MRG CHEST: CTA, BL, GAE, No W/R/R ABD: Soft, ND/NT, NABS 4x Q EXT: No C/C/E SKIN: Warm to touch PSYCH: No active psychosis, hallucinations, depression, SI/HI Objective Active Medications: Acetaminophen (Tylenol Tab*) 650 mg PO Q4H PRN PRN Reason: FEVER/PAIN Last Admin: 04/20/18 15:26 Dose: 650 mg Hydrocodone Bitart/Acetaminophen (Presto 10/325 (Nf)) 1 tab PO TID PRN PRN Reason: PAIN Last Admin: 04/21/18 14:55 Dose: 1 tab Acetylcysteine (Acetylcysteine Cap (Renal)*) 1,200 mg PO BID [facility] Stop: 04/23/18 09:01 Al Hydrox/Mg Hydrox/Simethicone (Maalox Plus*) 30 ml PO Q6H PRN PRN Reason: DYSPEPSIA Albuterol/Ipratropium (Duoneb (Albuterol 2.5 Mg/Ipratropium 0.5 Mg)) 1 neb INH Q4H PRN PRN Reason: SOB/WHEEZING Last Admin: 04/19/18 15:56 Dose: 1 neb Alprazolam (Xanax Tab*) 0.5 mg PO TID PRN PRN Reason: Anxiety Last Admin: 04/20/18 23:34 Dose: 0.5 mg Aspirin (Aspirin Ec Tab*) 81 mg PO DAILY [facility] Last Admin: 04/21/18 08:12 Dose: 81 mg Baclofen (Lioresal Tab*) 20 mg PO QID PRN PRN Reason: SPASMS Last Admin: 04/21/18 14:55 Dose: 20 mg Benzonatate (Tessalon Cap*) 200 mg PO Q8H PRN PRN Reason: COUGH Heparin Sodium (Porcine) (Heparin Vial(*)) 5,000 units SUBCUT Q8HR [facility] Last Admin: 04/21/18 14:00 Dose: 5,000 units Lamotrigine (Lamictal Tab(*)) 200 mg PO DAILY [facility] Last Admin: 04/21/18 09:48 Dose: 200 mg Levothyroxine Sodium (Synthroid Tab*) 150 mcg PO 0600 [facility] Last Admin: 04/21/18 06:16 Dose: 150 mcg Metoprolol Succinate (Toprol Xl Tab*) 50 mg PO DAILY [facility] Last Admin: 04/21/18 08:12 Dose: 50 mg Mometasone Furoate/Formoterol Fumar (Dulera 200/5 Mdi*) 2 puff INH BID [facility] Last Admin: 04/21/18 07:03 Dose: 2 puff Omeprazole (Prilosec Cap*) 20 mg PO DAILY [facility] Last Admin: 04/21/18 17:37 Dose: 20 mg Ondansetron HCl (Zofran Inj*) 4 mg IV Q6H PRN PRN Reason: NAUSEA Prednisone (Deltasone Tab*) 60 mg PO 0900 [facility] Last Admin: 04/21/18 08:12 Dose: 60 mg Quetiapine Fumarate (Seroquel Tab*) 400 mg PO BEDTIME [facility] Last Admin: 04/20/18 21:51 Dose: 400 mg Risperidone (Risperdal*) 4 mg PO BID [facility] Last Admin: 04/21/18 08:12 Dose: 4 mg Vital Signs - 8 hr 04/21/18 04/21/18 04/21/18 10:00 11:00 11:01 Temperature Pulse Rate 81 89 Respiratory 13 14 19 Rate Blood Pressure 136/79 128/71 (mmHg) O2 Sat by Pulse 93 90 Oximetry 04/21/18 04/21/18 04/21/18 11:24 12:00 13:00 Temperature 98.3 F Pulse Rate 84 Respiratory 15 12 Rate Blood Pressure (mmHg) O2 Sat by Pulse 97 Oximetry 04/21/18 04/21/18 04/21/18 13:01 14:00 14:03 Temperature Pulse Rate 95 85 69 Respiratory 10 13 13 Rate Blood Pressure 127/96 126/84 (mmHg) O2 Sat by Pulse 91 88 88 Oximetry 04/21/18 04/21/18 04/21/18 15:00 15:01 15:19 Temperature 97.5 F Pulse Rate 81 82 Respiratory 14 Rate Blood Pressure 130/88 (mmHg) O2 Sat by Pulse 97 95 Oximetry 04/21/18 16:00 Temperature Pulse Rate 81 Respiratory 14 Rate Blood Pressure 135/65 (mmHg) O2 Sat by Pulse 92 Oximetry Oxygen Devices in Use Now: High Flow Nasal Cannula Result Diagrams: 04/21/18 06:00 04/21/18 06:00 Microbiology and Other Data: Microbiology 04/18/18 22:20 Nasal Screen MRSA (PCR) - Final Nasal Mrsa Not Detected 04/19/18 00:30 Legionella Urinary Antigen - Final Urine Negative Legionella Antigen Streptococcus pneumoniae Ag Screen - Final Negative S. pneumo Antigen 04/18/18 22:20 Influenza Types A,B Antigen - Final Nasal Specimen received for Influenza A/B Molecular testing Assess/Plan/Problems-Billing Assessment: - Patient Problems (1) Altered mental status Current Visit: Yes Status: Acute Code(s): R41.82 - ALTERED MENTAL STATUS, UNSPECIFIED SNOMED Code(s): 792744150 Comment: -Resolved -Likely due to hypoxia given pt thought her O2 was on but wasnt at home -Set up for BiPAP on last admission but pt seems to mention that she does not have a machine she uses at night---will touch base with Dr. Sebastian when nearing D/C to see where she is along the process; on previous D/C, Dr. Sebastian mentioned this will be available for pt after a few days -Continue BiPAP qHS -EEG per Dr. Dunlap shows diffuse slowing which certain is consistent with her hx of hypoxia due to improperly using O2 machine -MRI of head and MRA of H&N: NAD intracranial abnormalities; although mild sinusitis found incidentally -Unclear why pt still requires 15L of O2, therefore ordered CTA of chest to evaluate whether ILD has changed or with unlikely event of PEboth concerns not supported by CTA of chest -Last BNP done 2 days ago was 3 days ago which was normal and not suggestive of CHF and has had no history of this, although 2D echo suggestive of diastolic dysfunction; no mention of significant pulmonary HTN on TTE report---will repeat BNP in AM -Will consult Dr. Sebastian in AM (2) Bipolar disorder Current Visit: Yes Status: Acute Comment: -Stable -Continue Risperidone and Quetiapine (3) Hypothyroidism Current Visit: No Status: Chronic Code(s): E03.9 - HYPOTHYROIDISM, UNSPECIFIED SNOMED Code(s): 37650206 Comment: -TSH elevated -Will increase Levothyroxine to 150 ug -Repeat TFTs in 6 wks (4) HTN (hypertension) Current Visit: No Status: Chronic Code(s): I10 - ESSENTIAL (PRIMARY) HYPERTENSION SNOMED Code(s): 04341763 Comment: -Continue Metoprolol (5) DVT prophylaxis Current Visit: No Status: Acute Code(s): HGP2290 - SNOMED Code(s): 614875739 Comment: -Continue Heparin SQq8H Status and Disposition: -Transfer out of ICU if consistently doing well on NC at 6L or better; still on [place] at 15L
[2018-04-21] MEDS: ALPRAZolam TAB* 0.5 MG PO PRN (21:12)
[2018-04-21] MEDS: QUEtiapine TAB* 100 MG PO SCH (21:12)
[2018-04-21] MEDS: Acetylcysteine CAP (RENAL)* 600 MG PO SCH (21:40)
[2018-04-22 04:43] LABS: Hematocrit 38 % (35-47); Hemoglobin 12.5 g/dl (12.0-16.0); Mean Corpuscular HGB Conc 33 g/dl (31-36); Mean Corpuscular Hemoglobin 28 pg (27-31); Mean Corpuscular Volume 86 fL (80-97); Mean Platelet Volume 9.7 fL (7.4-10.4); Platelet Count 124 10^3/ul (150-450); Red Blood Count 4.44 10^6/ul (4.00-5.40); Red Cell Distribution Width 16 % (10.5-15); White Blood Count 9.6 10^3/ul (3.5-10.8)
[2018-04-22 04:56] LABS: EGFR Non-African American 75.7 (>60)
[2018-04-22 05:04] LABS: ABS Basophils 0 10^3/ul (0-0.2); ABS Neutrophils 7.1 10^3/ul (1.5-7.7); ABS Neutrophils 7.2 10^3/ul (1.5-7.7); Monocytes % 9 % (0-7)
[2018-04-22] MEDS: Heparin VIAL(*) 5000 UNITS/ML VIAL (FIVE THOUSAND) SUBCUT SCH ×3 (06:16→20:09)
[2018-04-22] MEDS: Levothyroxine TAB* 150 MCG TAB PO SCH (06:16)
[2018-04-22] MEDS: Mometasone/Formoter 200/5 MDI INH SCH ×2 (08:02→19:20)
[2018-04-22] MEDS: predniSONE TAB* 20 MG PO SCH (08:27)
[2018-04-22] MEDS: Omeprazole CAP* 20 MG PO SCH (08:27)
[2018-04-22] MEDS: Aspirin EC TAB* 81 MG TAB.EC PO SCH (08:28)
[2018-04-22] MEDS: lamoTRIgine TAB(*) 100 MG PO SCH (08:28)
[2018-04-22] MEDS: Acetylcysteine CAP (RENAL)* 600 MG PO SCH ×2 (08:28→20:08)
[2018-04-22] MEDS: Metoprolol Succinate XL TAB* 50 MG PO SCH (08:28)
[2018-04-22] MEDS: risperiDONE TAB* 2 MG PO SCH ×2 (08:29→20:07)
--- NOTE | 2018-04-22 17:14 | PN ---
Subjective Date of Service: 04/22/18 Interval History: Pt seen and examined. Meds and labs reviewed. CC: N/A ROS: Denied ENCISO/dizziness, F/C, N/V, CP, SOB, increased cough, sputum production , abd pain, diarrhea, constipation, dysuria, myalgias, arthralgias, throat pain , and new skin lesions. The rest of the 14 point ROS are unremarkable. PHYSICAL EXAM: GEN APPEARANCE: Awake, not in acute distress, obese HEENT: NC/AT, PERRLA, moist oral mucosa, (-) throat erythema NECK: Soft, supple, (-) cervical LAD, (-)JVD HEART: S1S2 WNL, RRR, No MRG CHEST: (+)mild inspiratory bibasal crackles, GAE, No W/R/R ABD: Soft, ND/NT, NABS 4x Q EXT: No C/C/E SKIN: Warm to touch PSYCH: No active psychosis, hallucinations, depression, SI/HI Objective Active Medications: Acetaminophen (Tylenol Tab*) 650 mg PO Q4H PRN PRN Reason: FEVER/PAIN Last Admin: 04/20/18 15:26 Dose: 650 mg Hydrocodone Bitart/Acetaminophen ([place] 10/325 (Nf)) 1 tab PO TID PRN PRN Reason: PAIN Last Admin: 04/21/18 14:55 Dose: 1 tab Acetylcysteine (Acetylcysteine Cap (Renal)*) 1,200 mg PO BID [facility] Stop: 04/23/18 09:01 Last Admin: 04/22/18 08:28 Dose: 1,200 mg Al Hydrox/Mg Hydrox/Simethicone (Maalox Plus*) 30 ml PO Q6H PRN PRN Reason: DYSPEPSIA Albuterol/Ipratropium (Duoneb (Albuterol 2.5 Mg/Ipratropium 0.5 Mg)) 1 neb INH Q4H PRN PRN Reason: SOB/WHEEZING Last Admin: 04/19/18 15:56 Dose: 1 neb Alprazolam (Xanax Tab*) 0.5 mg PO TID PRN PRN Reason: Anxiety Last Admin: 04/21/18 21:12 Dose: 0.5 mg Aspirin (Aspirin Ec Tab*) 81 mg PO DAILY [facility] Last Admin: 11/05/18 08:28 Dose: 81 mg Baclofen (Lioresal Tab*) 20 mg PO QID PRN PRN Reason: SPASMS Last Admin: 04/21/18 14:55 Dose: 20 mg Benzonatate (Tessalon Cap*) 200 mg PO Q8H PRN PRN Reason: COUGH Heparin Sodium (Porcine) (Heparin Vial(*)) 5,000 units SUBCUT Q8HR [facility] Last Admin: 04/22/18 14:21 Dose: 5,000 units Lamotrigine (Lamictal Tab(*)) 200 mg PO DAILY [facility] Last Admin: 04/22/18 08:28 Dose: 200 mg Levothyroxine Sodium (Synthroid Tab*) 150 mcg PO 0600 [facility] Last Admin: 04/22/18 06:16 Dose: 150 mcg Metoprolol Succinate (Toprol Xl Tab*) 50 mg PO DAILY [facility] Last Admin: 04/22/18 08:28 Dose: 50 mg Mometasone Furoate/Formoterol Fumar (Dulera 200/5 Mdi*) 2 puff INH BID [facility] Last Admin: 04/22/18 08:02 Dose: 2 puff Omeprazole (Prilosec Cap*) 20 mg PO DAILY [facility] Last Admin: 04/22/18 08:27 Dose: 20 mg Ondansetron HCl (Zofran Inj*) 4 mg IV Q6H PRN PRN Reason: NAUSEA Prednisone (Deltasone Tab*) 60 mg PO 0900 [facility] Last Admin: 04/22/18 08:27 Dose: 60 mg Quetiapine Fumarate (Seroquel Tab*) 400 mg PO BEDTIME [facility] Last Admin: 04/21/18 21:12 Dose: 400 mg Risperidone (Risperdal*) 4 mg PO BID [facility] Last Admin: 04/22/18 08:29 Dose: 4 mg Vital Signs - 8 hr 04/22/18 04/22/18 04/22/18 10:00 10:01 11:00 Temperature Pulse Rate 77 77 81 Respiratory 13 17 15 Rate Blood Pressure 107/68 (mmHg) O2 Sat by Pulse 90 91 91 Oximetry 04/22/18 04/22/18 04/22/18 11:01 11:05 12:00 Temperature 97.8 F Pulse Rate 85 69 Respiratory 13 17 Rate Blood Pressure 121/68 93/52 (mmHg) O2 Sat by Pulse 93 91 Oximetry 04/22/18 04/22/18 04/22/18 13:00 13:01 14:00 Temperature Pulse Rate 78 87 Respiratory 19 19 15 Rate Blood Pressure 144/102 (mmHg) O2 Sat by Pulse 94 95 Oximetry 04/22/18 14:01 Temperature Pulse Rate 78 Respiratory 15 Rate Blood Pressure 128/78 (mmHg) O2 Sat by Pulse 94 Oximetry Oxygen Devices in Use Now: High Flow Nasal Cannula Result Diagrams: 04/22/18 04:25 04/22/18 04:25 Microbiology and Other Data: Microbiology 04/18/18 22:20 Nasal Screen MRSA (PCR) - Final Nasal Mrsa Not Detected 04/19/18 00:30 Legionella Urinary Antigen - Final Urine Negative Legionella Antigen Streptococcus pneumoniae Ag Screen - Final Negative S. pneumo Antigen 04/18/18 22:20 Influenza Types A,B Antigen - Final Nasal Specimen received for Influenza A/B Molecular testing Assess/Plan/Problems-Billing Assessment: - Patient Problems (1) Altered mental status Current Visit: Yes Status: Acute Code(s): R41.82 - ALTERED MENTAL STATUS, UNSPECIFIED SNOMED Code(s): 560577350 Comment: -Resolved -Likely due to hypoxia given pt thought her O2 was on but wasnt at home -Set up for BiPAP on last admission but pt seems to mention that she does not have a machine she uses at night---will touch base with Dr. Sebastian when nearing D/C to see where she is along the process; on previous D/C, Dr. Sebastian mentioned this will be available for pt after a few days -Continue BiPAP qHS -EEG per Dr. Dunlap shows diffuse slowing which certain is consistent with her hx of hypoxia due to improperly using O2 machine -MRI of head and MRA of H&N: NAD intracranial abnormalities; although mild sinusitis found incidentally -Unclear why pt still requires 15L of O2, therefore ordered CTA of chest to evaluate whether ILD has changed or with unlikely event of PEboth concerns not supported by CTA of chest -Last BNP done 2 days ago was 3 days ago which was normal and not suggestive of CHF and has had no history of this, although 2D echo suggestive of diastolic dysfunction; no mention of significant pulmonary HTN on TTE report---will repeat BNP in AM -D/W Dr. Sebastian this AM in regards to her increase O2 needs and will defer with further management and treatment---will await official input (2) Bipolar disorder Current Visit: Yes Status: Acute Comment: -Stable -Continue Risperidone and Quetiapine (3) Hypothyroidism Current Visit: No Status: Chronic Code(s): E03.9 - HYPOTHYROIDISM, UNSPECIFIED SNOMED Code(s): 33384309 Comment: -TSH elevated -Continue Levothyroxine to 150 ug -Repeat TFTs in 6 wks (4) HTN (hypertension) Current Visit: No Status: Chronic Code(s): I10 - ESSENTIAL (PRIMARY) HYPERTENSION SNOMED Code(s): 05742674 Comment: -Continue Metoprolol (5) DVT prophylaxis Current Visit: No Status: Acute Code(s): QOZ4127 - SNOMED Code(s): 769917004 Comment: -Continue Heparin SQq8H Status and Disposition: -Transfer out of ICU if consistently doing well on NC at 6L or better; still on [place] at 15L -D/W staffing coordinator team to make sure home BiPAP is set-up given pt has difficulty obtaining rides to her F/Us as d/w Dr. Sebastian earlier -Will await Dr. Bourne official input
[2018-04-22] MEDS: Hydrocodone/Acetamin 10/325 1 TAB PO PRN (20:06)
[2018-04-22] MEDS: ALPRAZolam TAB* 0.5 MG PO PRN (20:07)
[2018-04-22] MEDS: QUEtiapine TAB* 100 MG PO SCH (20:09)
[2018-04-22] MEDS: Baclofen TAB* 20 MG PO PRN (20:09)
--- NOTE | 2018-04-22 21:11 | CONS ---
PULMONARY CONSULTATION REPORT: DATE OF CONSULT: 04/22/18 CONSULTATION REQUESTED BY: Dr. Kent. REASON FOR CONSULT: Evaluation of shortness of breath and hypoxemia. HISTORY OF PRESENT ILLNESS: The patient is a 42-year-old morbidly obese female with history of bipolar disorder, hypothyroidism, hypertension, COPD, interstitial lung disease, known to me from prior inpatient and outpatient evaluation. She was recently hospitalized for evaluation of shortness of breath and hypoxemic respiratory failure. She was treated for acute COPD exacerbation and was discharged on 04/13/18. She was doing well at home. She was discharged on oxygen and was supposed to have BiPAP set up at home. She has not been very compliant with oxygen. The patient was found to be having altered mental status as per her boyfriend. She was brought into the emergency room for further evaluation. No evidence of CVA. She was found to be having worsening hypoxemic respiratory failure and was admitted for further management. She is currently on 10 L of O2 supplementation in the ICU. She has been on nasal cannula. She has not required high-flow. She did not have significant wheezing on auscultation. She was not found to be in significant COPD exacerbation. She has history of cerebral aneurysm, had CT of the brain and MRI of the brain. CT did not show any acute pathology. Brain MRI showed mild sinus inflammatory disease without any air-fluid levels and no acute findings in the brain. She also had CTA of the chest to rule out pulmonary embolism as a cause of her syncopal episode. I have personally reviewed CT scan of the chest. Did not have any evidence of filling defects in pulmonary vasculature. She was noted to have prominence of interstitium without any interval change. The patient noted to have significantly enlarged liver with hypoattenuation. No pleural effusion noted. The patient noted to have pleural - based density in the lingular segment of left lung, which correlates to atelectasis. Septic workup including blood cultures, urine cultures have been negative. Negative Legionella and Strep pneumo antigens. No white count was seen. Blood gas did not reveal significant hypercapnia. She was not noted to have any evidence of chronic respiratory failure. Her pO2 was definitely low at 63. No significant electrolyte abnormalities were noted. BNP was within normal limits. The patient continues to remain on 4 L O2. She was dozing off when I walked into her room and was snoring with some witnessed apneic events. The patient's oxygen levels were around 97% when she was lying down. They do drop to 93% when she is sitting up. The patient also was given Mucomyst. She has been receiving bronchodilators q.4 hours. She was started on 60 mg of prednisone. She was started on PPI. She was also initiated on BiPAP. PAST MEDICAL HISTORY: 1. Morbid obesity. 2. Bipolar disorder. 3. Hypothyroidism. 4. COPD. 5. Hypertension. 6. Interstitial lung disease. 7. Quit smoking recently. PAST SURGICAL HISTORY: 1. . 2. Tubal ligation. 3. Teeth extraction. 4. Cholecystectomy. 5. Appendectomy. 6. Brain aneurysm repair. MEDICATIONS AT HOME: 1. Seroquel. 2. Xanax. 3. Lamictal. 4. Tessalon. 5. Baclofen. 6. Aspirin. 7. Risperdal. 8. Nicotine patch. 9. Toprol. 10. Synthroid. 11. Pulmicort. 12. DuoNeb. 13. [place]. 14. Dulera. ALLERGIES: DILANTIN and AUGMENTIN. FAMILY HISTORY: Mother with COPD. Father's history unknown. SOCIAL HISTORY: Pack and half a day smoker, quit smoking 2 weeks during recent hospitalization. No alcohol or drug abuse. 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 REVIEW OF SYSTEMS: All 14 systems were reviewed and as per HPI. PHYSICAL EXAM: The patient in bed, in no apparent distress. Vital Signs: Temperature 97, pulse 76 beats per minute, respiratory rate 15 per minute, O2 sat 94% on 8 L, blood pressure 128/78. HEENT: Pupils equal, reactive to light. Mucous membranes moist. DIAGNOSTIC STUDIES/LAB DATA: WBC count 9.6, hemoglobin 12.5, hematocrit 38, platelet count 134. The pH 7.38, pCO2 41, pO2 was 63, bicarb 24. Sodium 139, potassium 4.0, chloride 103, bicarb 31, BUN 18, creatinine 0.82. BNP within normal limits. Influenza A and B negative. CTA of the chest as described in HPI. IMPRESSION AND RECOMMENDATIONS: 42-year-old female, smoker, with significant smoking history, with recent admission, readmitted for altered mental status, hypoxemic respiratory failure. The patient not in acute chronic obstructive pulmonary disease exacerbation at this time. She does have acute on chronic hypoxemic respiratory failure likely secondary to underlying pulmonary hypertension and noncompliance to O2. She did not have hypercapnia on admission, was on Acetazolomide at time of d/c. She does have obesity hypoventilation and possible obstructive sleep apnea. She would benefit from BiPAP usage. Would use BiPAP during the day with the naps and at night. Titrate FiO2 as tolerated, maintain O2 sats around 90%. Out of bed to chair as tolerated. Will taper prednisone to low dose. Will need to work on weight loss. She claims to be not smoking anymore. Drug screen has been negative. Her O2 sats appear to be better when she is lying down. She does have hypodensities in the liver, which could be fatty liver. Will order echocardiogram with bubble study to evaluate for possible shunt and pulmonary hypertension. Thank you for allowing me to participate in the care of your patient. Will follow up with you. [id number]/[facility] #: [id number] ELIAZAR
[2018-04-23] MEDS: Baclofen TAB* 20 MG PO PRN ×3 (05:42→20:27)
[2018-04-23] MEDS: Hydrocodone/Acetamin 10/325 1 TAB PO PRN ×3 (05:42→20:28)
[2018-04-23] MEDS: Levothyroxine TAB* 150 MCG TAB PO SCH (06:18)
[2018-04-23] MEDS: Heparin VIAL(*) 5000 UNITS/ML VIAL (FIVE THOUSAND) SUBCUT SCH ×3 (06:18→20:30)
[2018-04-23] MEDS: Acetylcysteine CAP (RENAL)* 600 MG PO SCH (08:26)
[2018-04-23] MEDS: Metoprolol Succinate XL TAB* 50 MG PO SCH (08:27)
[2018-04-23] MEDS: predniSONE TAB* 20 MG PO SCH (08:27)
[2018-04-23] MEDS: lamoTRIgine TAB(*) 100 MG PO SCH (08:28)
[2018-04-23] MEDS: Aspirin EC TAB* 81 MG TAB.EC PO SCH (08:29)
[2018-04-23] MEDS: Omeprazole CAP* 20 MG PO SCH (08:29)
[2018-04-23] MEDS: risperiDONE TAB* 2 MG PO SCH ×2 (08:30→20:27)
[2018-04-23] MEDS: Mometasone/Formoter 200/5 MDI INH SCH ×2 (08:46→19:22)
[2018-04-23] MEDS: ALPRAZolam TAB* 0.5 MG PO PRN ×2 (11:40→20:28)
--- NOTE | 2018-04-23 13:43 | PN ---
Subjective Date of Service: 04/23/18 Interval History: CC-SOB Pt examined today at the bedside. She states that her breathing is improving. Still SOB with exertion. Denies chest pain and denies abdominal pain. Denies nausea and vomiting. ROS-denies fever, denies chills, denies chest pain, denies sob at rest, [place], denies abdominal pain, denies nausea, denies vomiting, denies lightheadedness, denies loc, review of 11 systems completed all others negative, Objective Active Medications: Acetaminophen (Tylenol Tab*) 650 mg PO Q4H PRN PRN Reason: FEVER/PAIN Last Admin: 04/20/18 15:26 Dose: 650 mg Hydrocodone Bitart/Acetaminophen ([place] 10/325 (Nf)) 1 tab PO TID PRN PRN Reason: PAIN Last Admin: 04/23/18 11:35 Dose: 1 tab Al Hydrox/Mg Hydrox/Simethicone (Maalox Plus*) 30 ml PO Q6H PRN PRN Reason: DYSPEPSIA Albuterol/Ipratropium (Duoneb (Albuterol 2.5 Mg/Ipratropium 0.5 Mg)) 1 neb INH Q4H PRN PRN Reason: SOB/WHEEZING Last Admin: 04/19/18 15:56 Dose: 1 neb Alprazolam (Xanax Tab*) 0.5 mg PO TID PRN PRN Reason: Anxiety Last Admin: 04/23/18 11:40 Dose: 0.5 mg Aspirin (Aspirin Ec Tab*) 81 mg PO DAILY [facility] Last Admin: 04/23/18 08:29 Dose: 81 mg Baclofen (Lioresal Tab*) 20 mg PO QID PRN PRN Reason: SPASMS Last Admin: 04/23/18 11:35 Dose: 20 mg Benzonatate (Tessalon Cap*) 200 mg PO Q8H PRN PRN Reason: COUGH Heparin Sodium (Porcine) (Heparin Vial(*)) 5,000 units SUBCUT Q8HR [facility] Last Admin: 04/23/18 06:18 Dose: 5,000 units Lamotrigine (Lamictal Tab(*)) 200 mg PO DAILY [facility] Last Admin: 04/23/18 08:28 Dose: 200 mg Levothyroxine Sodium (Synthroid Tab*) 150 mcg PO 0600 [facility] Last Admin: 04/23/18 06:18 Dose: 150 mcg Metoprolol Succinate (Toprol Xl Tab*) 50 mg PO DAILY [facility] Last Admin: 04/23/18 08:27 Dose: 50 mg Mometasone Furoate/Formoterol Fumar (Dulera 200/5 Mdi*) 2 puff INH BID [facility] Last Admin: 04/23/18 08:46 Dose: 2 puff Omeprazole (Prilosec Cap*) 20 mg PO DAILY [facility] Last Admin: 04/23/18 08:29 Dose: 20 mg Ondansetron HCl (Zofran Inj*) 4 mg IV Q6H PRN PRN Reason: NAUSEA Prednisone (Deltasone Tab*) 40 mg PO 0900 [facility] Quetiapine Fumarate (Seroquel Tab*) 400 mg PO BEDTIME [facility] Last Admin: 04/22/18 20:09 Dose: 400 mg Risperidone (Risperdal*) 4 mg PO BID [facility] Last Admin: 04/23/18 08:30 Dose: 4 mg Vital Signs - 8 hr 04/23/18 04/23/18 04/23/18 05:42 08:00 08:17 Temperature 97.6 F Pulse Rate 91 Respiratory 22 18 18 Rate Blood Pressure 147/72 (mmHg) O2 Sat by Pulse 94 Oximetry 04/23/18 04/23/18 04/23/18 08:49 11:31 11:35 Temperature 97.6 F Pulse Rate 89 100 Respiratory 18 17 17 Rate Blood Pressure 136/88 (mmHg) O2 Sat by Pulse 93 90 Oximetry 04/23/18 11:40 Temperature Pulse Rate Respiratory 17 Rate Blood Pressure (mmHg) O2 Sat by Pulse Oximetry Oxygen Devices in Use Now: Nasal Cannula Appearance: 42 y/o female sitting in bed NAD Eyes: No Scleral Icterus, PERRLA Ears/Nose/Mouth/Throat: NL Teeth, Lips, Gums Neck: NL Appearance and Movements; NL JVP Respiratory: Symmetrical Chest Expansion and Respiratory Effort, - - diminished in the bases, Cardiovascular: NL Sounds; No Murmurs; No JVD Abdominal: NL Sounds; No Tenderness; No Distention Lymphatic: No Cervical Adenopathy Extremities: No Edema Skin: No Rash or Ulcers Neurological: Alert and Oriented x 3 Lines/Tubes/Other Access: Clean, Dry and Intact Peripheral IV Result Diagrams: 04/22/18 04:25 04/22/18 04:25 Microbiology and Other Data: Microbiology 04/18/18 22:20 Nasal Screen MRSA (PCR) - Final Nasal Mrsa Not Detected 04/19/18 00:30 Legionella Urinary Antigen - Final Urine Negative Legionella Antigen Streptococcus pneumoniae Ag Screen - Final Negative S. pneumo Antigen 04/18/18 22:20 Influenza Types A,B Antigen - Final Nasal Specimen received for Influenza A/B Molecular testing Assess/Plan/Problems-Billing Assessment: 42 y/o female patient [place] [facility] [place], - Patient Problems (1) Altered mental status Current Visit: Yes Status: Acute Priority: High Comment: -Resolved -Likely due to hypoxia given pt thought her O2 was on but wasnt at home -Set up for BiPAP on last admission but pt seems to mention that she does not have a machine she uses at night---plan for overnight pulse ox off bipap tonight per pulm, abg now and at 0200 -Continue BiPAP qHS after pulse ox recording -EEG per Dr. Dunlap shows diffuse slowing which certain is consistent with her hx of hypoxia due to improperly using O2 machine -MRI of head and MRA of H&N: NAD intracranial abnormalities; although mild sinusitis found incidentally -CTA with no PE or progessio of ILD, on 6lnc now -BNP 45, repeating echo today with bubble to look for shunting -D/W Dr. Sebastian this AM in regards to her increase O2 needs suspect could be from shunting awaiting echo with bubble, continue nebs and steriods, (2) Bipolar disorder Current Visit: Yes Status: Acute Priority: High Comment: -Stable -Continue Risperidone and Quetiapine (3) DVT prophylaxis Current Visit: Yes Status: Acute Priority: High Comment: -Continue Heparin SQq8H (4) Full code status Current Visit: Yes Status: Acute Priority: High (5) HTN (hypertension) Current Visit: Yes Status: Chronic Priority: High Comment: -BP stable -Continue Metoprolol (6) Hypothyroidism Current Visit: Yes Status: Chronic Priority: High Comment: -TSH elevated -Continue Levothyroxine to 150 ug -Repeat TFTs in 6 wks Status and Disposition: -overnight pulse ox, abg 0200, home when stable, pulm to see tomorrow in follow up await repeat echo
--- NOTE | 2018-04-23 15:01 | ECHO ---
Patient: LAURIE RIVERO [facility] Rec#: [id number] : 1975 Date: 04/23/2018 Age: 42y Height: 162.56 cm / 64.0 in Weight: 113.85 kg / 250.9 lbs Sex: F BSA: 2.15 Room#: [facility] Admit Date#: 04/18/2018 Type: Inpatient Referring: JACQUI SANTILLAN Reading: Alfredo Escalera MD Printer Slotter Helper: Maribel Dalton RDCS CC: Claudio Gauthier Transthoracic Echocardiogram Indication: Dyspnea, follow up BP: 133/82 HR: 88 Rhythm: NSR with PVCs Findings History: MO, HTN, COPD, smoker, GONZALO, hypothyroidism. This is a LIMITED study to evaluate RVSP and bubble study. Technical Comments: The study quality is fair. Completed at 0930. Right Atrium: There were late bubbles seen in the left atrium. Delayed appearance of saline contrast bubbles is noted in the left atrium indicating intrapulmonary shunting. Tricuspid Valve: There is mild tricuspid regurgitation. The right ventricular systolic pressure is estimated at 37 mmHg. There is evidence of mild pulmonary hypertension. There is no tricuspid stenosis. Pericardium: There is no significant pericardial effusion. A pericardial fat pad is visualized. Contrast: Normal saline was used as contrast for the bubble study. Images 4 and 5. Intravenous contrast was used to help determine presence of intracardiac shunting. Summary: There are changes noted when compared to the previous study done on 04/18/2018, now there is mild PHTN instead of unable to estimate then. This is limited study to evaluate for shunts. Conclusions There were late bubbles seen in the left atrium. Delayed appearance of saline contrast bubbles is noted in the left atrium indicating intrapulmonary shunting. There is mild tricuspid regurgitation. The right ventricular systolic pressure is estimated at 37 mmHg. There is evidence of mild pulmonary hypertension. There are changes noted when compared to the previous study done on 04/18/2018, now there is mild PHTN instead of unable to estimate then. This is limited study to evaluate for shunts. Measurements Name Value Normal Range TR Vmax 2.7 m/sec - TR peak gradient 29 mmHg - RAP 8 mmHg - RVSP 37 mmHg -
[2018-04-23] MEDS: QUEtiapine TAB* 100 MG PO SCH (20:28)
[2018-04-24] MEDS: Levothyroxine TAB* 150 MCG TAB PO SCH (05:46)
[2018-04-24] MEDS: Heparin VIAL(*) 5000 UNITS/ML VIAL (FIVE THOUSAND) SUBCUT SCH ×3 (05:46→20:12)
[2018-04-24] MEDS: Mometasone/Formoter 200/5 MDI INH SCH ×2 (07:22→19:28)
[2018-04-24] MEDS: Metoprolol Succinate XL TAB* 50 MG PO SCH (08:23)
[2018-04-24] MEDS: predniSONE TAB* 20 MG PO SCH (08:24)
[2018-04-24] MEDS: risperiDONE TAB* 2 MG PO SCH ×2 (08:24→20:11)
[2018-04-24] MEDS: lamoTRIgine TAB(*) 100 MG PO SCH (08:24)
[2018-04-24] MEDS: Omeprazole CAP* 20 MG PO SCH (08:24)
[2018-04-24] MEDS: Baclofen TAB* 20 MG PO PRN ×2 (08:25→20:11)
[2018-04-24] MEDS: Aspirin EC TAB* 81 MG TAB.EC PO SCH (08:25)
[2018-04-24] MEDS: Hydrocodone/Acetamin 10/325 1 TAB PO PRN ×2 (08:25→20:10)
--- NOTE | 2018-04-24 12:04 | PN ---
Hospitalist Progress Note Date of Service: 04/24/18 ABG worse with Bipap. Patient with chronic hypoxic respiratory failure secondary to COPD, Interstitial Lung Disease and obesity hypoventilation syndrome. Dr. Sebastian is recommending [facility].
--- NOTE | 2018-04-24 15:14 | PN ---
Progress Note - Progress Note Date of Service: 04/24/18 - Pulm consult f/u note Note: Pt seen and examined at bedside. O/n events noted. Pt reports feeling better. Still significantly hypoxic Active Medications Generic Name Dose Route Start Last Admin Trade Name Freq PRN Reason Stop Dose Admin Acetaminophen 650 mg 04/18/18 19:42 04/20/18 15:26 Tylenol Tab* PO 650 mg Q4H PRN Administration FEVER/PAIN Hydrocodone Bitart/Acetaminophen 1 tab 04/19/18 08:33 04/24/18 08:25 [place] 10/325 (Nf) PO 1 tab TID PRN Administration PAIN Al Hydrox/Mg Hydrox/Simethicone 30 ml 04/21/18 16:49 Maalox Plus* PO Q6H PRN DYSPEPSIA Albuterol/Ipratropium 1 neb 04/19/18 00:29 04/19/18 15:56 Duoneb (Albuterol 2.5 Mg/Ipratropium 0.5 Mg) INH 1 neb Q4H PRN Administration SOB/WHEEZING Alprazolam 0.5 mg 04/19/18 10:08 04/23/18 20:28 Xanax Tab* PO 0.5 mg TID PRN Administration Anxiety Aspirin 81 mg 04/19/18 09:00 04/24/18 08:25 Aspirin Ec Tab* PO 81 mg DAILY [facility] Administration Baclofen 20 mg 04/18/18 19:47 04/24/18 08:25 Lioresal Tab* PO 20 mg QID PRN Administration SPASMS Benzonatate 200 mg 04/18/18 19:47 Tessalon Cap* PO Q8H PRN COUGH Heparin Sodium (Porcine) 5,000 units 04/18/18 22:00 04/24/18 05:46 Heparin Vial(*) SUBCUT 5,000 units Q8HR [facility]A Administration Lamotrigine 200 mg 04/21/18 10:00 04/24/18 08:24 Lamictal Tab(*) PO 200 mg DAILY [facility] Administration Levothyroxine Sodium 150 mcg 04/20/18 06:00 04/24/18 05:46 Synthroid Tab* PO 150 mcg 0600 [facility] Administration Mometasone Furoate/Formoterol Fumar 2 puff 04/18/18 21:00 04/24/18 07:22 Dulera 200/5 Mdi* INH 2 puff BID [facility] Administration Omeprazole 20 mg 04/21/18 17:00 04/24/18 08:24 Prilosec Cap* PO 20 mg DAILY [facility] Administration Ondansetron HCl 4 mg 04/18/18 19:42 Zofran Inj* IV Q6H PRN NAUSEA Prednisone 40 mg 04/24/18 09:00 04/24/18 08:24 Deltasone Tab* PO 40 mg 0900 [facility] Administration Quetiapine Fumarate 400 mg 04/19/18 21:00 04/23/18 20:28 Seroquel Tab* PO 400 mg BEDTIME [facility] Administration Risperidone 4 mg 04/18/18 21:00 04/24/18 08:24 Risperdal* PO 4 mg BID [facility] Administration Vital Signs Temp Pulse Resp BP Pulse Ox 98.4 F 82 22 159/90 90 04/24/18 11:41 04/24/18 11:41 04/24/18 11:41 04/24/18 11:41 04/24/18 11:41 Laboratory Results - last 24 hr 04/24/18 02:55 ABG pH 7.40 ABG pCO2 52 H ABG pO2 68 L ABG HCO3 29.5 ABG O2 Saturation 95.7 ABG Base Excess 6.0 H O/E; Morbidly obese f HEENT: PERRLA, no JVD Lungs: Diminished air entry, no wheeze CVS: S1, S2+ Abd: Obese, BS+ Neuro: NO focal defecits Skin: NO rash Lymph: no palpable lymph nodes O/n oximetry results were personally reviewed and with pt- suggestive of signficant hypoxia Bubble ECHO: Positive for intrapulmonary shunt. Mild PH was also noted I/R:42 y o morbidly obese f with significant PMH, with h/o ILD, underwent bronchoscopy, that showed chronic inflammation, recently admitted with acute COPD exacerbation and hypoxic and hypercapnic resp faire, readmitted for AMS, being treated for hyper capnic resp failure, also with evidence of significant hypoxia Pt requiring high FiO2, O2 sats appear better lying down ECHO was ordered for evaluation of intrapulmonary shunt given orthodeoxia, bubble study was positive Pt with intrapulmonary shunt likely sec to AV malformations Will need pulm angiogram for further evaluation Discussed importance of compliance with O2 She will also be set up with Trilogy for obesity hypoventilation syndrome Discussed importance of compliance with NIPPV She has hypodensities in liver, sec to hepatic steatosis versus cirrhosis Will need to check alpha-1 Her case is complex, I have reviewed literature She will need second opinion consultation, will arrange as out ptTotal time 50 min, most of which is face to face
--- NOTE | 2018-04-24 15:33 | PN ---
Subjective Interval History: intrapulmonary shunt suspected on ECHO given late bubbles in left atrium Pt has had increased oxygen requirements and work of breathing throughout the day. Currently a bit labored on 9L denies any rashes, joint pains, nose bleeding, hair loss, abdominal pain, raynaud's, trouble swallowing. 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 Saw a political scientist. says any mask that covers her mouth makes her extremely claustrophobic. trilogy was applied for. Objective Active Medications: Acetaminophen (Tylenol Tab*) 650 mg PO Q4H PRN PRN Reason: FEVER/PAIN Last Admin: 04/20/18 15:26 Dose: 650 mg Hydrocodone Bitart/Acetaminophen ([place] 10/325 (Nf)) 1 tab PO TID PRN PRN Reason: PAIN Last Admin: 04/24/18 08:25 Dose: 1 tab Al Hydrox/Mg Hydrox/Simethicone (Maalox Plus*) 30 ml PO Q6H PRN PRN Reason: DYSPEPSIA Albuterol/Ipratropium (Duoneb (Albuterol 2.5 Mg/Ipratropium 0.5 Mg)) 1 neb INH Q4H PRN PRN Reason: SOB/WHEEZING Last Admin: 04/19/18 15:56 Dose: 1 neb Alprazolam (Xanax Tab*) 0.5 mg PO TID PRN PRN Reason: Anxiety Last Admin: 04/23/18 20:28 Dose: 0.5 mg Aspirin (Aspirin Ec Tab*) 81 mg PO DAILY [facility] Last Admin: 04/24/18 08:25 Dose: 81 mg Baclofen (Lioresal Tab*) 20 mg PO QID PRN PRN Reason: SPASMS Last Admin: 04/24/18 08:25 Dose: 20 mg Benzonatate (Tessalon Cap*) 200 mg PO Q8H PRN PRN Reason: COUGH Heparin Sodium (Porcine) (Heparin Vial(*)) 5,000 units SUBCUT Q8HR [facility] Last Admin: 04/24/18 05:46 Dose: 5,000 units Lamotrigine (Lamictal Tab(*)) 200 mg PO DAILY [facility] Last Admin: 04/24/18 08:24 Dose: 200 mg Levothyroxine Sodium (Synthroid Tab*) 150 mcg PO 0600 [facility] Last Admin: 04/24/18 05:46 Dose: 150 mcg Metoprolol Succinate (Toprol Xl Tab*) 50 mg PO DAILY [facility] Last Admin: 04/24/18 08:23 Dose: 50 mg Mometasone Furoate/Formoterol Fumar (Dulera 200/5 Mdi*) 2 puff INH BID [facility] Last Admin: 04/24/18 07:22 Dose: 2 puff Omeprazole (Prilosec Cap*) 20 mg PO DAILY [facility] Last Admin: 04/24/18 08:24 Dose: 20 mg Ondansetron HCl (Zofran Inj*) 4 mg IV Q6H PRN PRN Reason: NAUSEA Prednisone (Deltasone Tab*) 40 mg PO 0900 [facility] Last Admin: 04/24/18 08:24 Dose: 40 mg Quetiapine Fumarate (Seroquel Tab*) 400 mg PO BEDTIME [facility] Last Admin: 04/23/18 20:28 Dose: 400 mg Risperidone (Risperdal*) 4 mg PO BID [facility] Last Admin: 04/24/18 08:24 Dose: 4 mg Vital Signs - 8 hr 04/24/18 04/24/18 04/24/18 07:24 08:00 08:25 Temperature Pulse Rate 92 Respiratory 18 18 18 Rate Blood Pressure (mmHg) O2 Sat by Pulse 97 Oximetry 04/24/18 04/24/18 04/24/18 09:25 10:25 11:41 Temperature 98.0 F 98.4 F Pulse Rate 91 82 Respiratory 18 18 22 Rate Blood Pressure 154/72 159/90 (mmHg) O2 Sat by Pulse 92 90 Oximetry Oxygen Devices in Use Now: High Flow Nasal Cannula Appearance: NAD Eyes: No Scleral Icterus, PERRLA Ears/Nose/Mouth/Throat: NL Teeth, Lips, Gums Neck: NL Appearance and Movements; NL JVP, Trachea Midline Respiratory: - - mid exhalation blowing wheeze, no rhonchi or rales. Cardiovascular: NL Sounds; No Murmurs; No JVD, RRR Abdominal: NL Sounds; No Tenderness; No Distention, No Hepatosplenomegaly Extremities: No Edema, No Clubbing, Cyanosis Skin: No Nodules or Sclerosis, - - raised scab on right anterior olmos Neurological: Alert and Oriented x 3, NL Sensation, NL Muscle Strength and Tone Nutrition: Taking PO's Result Diagrams: 11/05/18 04:25 04/22/18 04:25 Additional Lab and Data: Laboratory Results - last 24 hr 04/24/18 04/24/18 04/24/18 02:55 16:00 16:00 ABG pH 7.40 ABG pCO2 52 H ABG pO2 68 L ABG HCO3 29.5 ABG O2 Saturation 95.7 ABG Base Excess 6.0 H Rheumatoid Factor < 10 HIV 1&2 Antibody Rapid Nonreactive Microbiology and Other Data: Microbiology 04/19/18 10:10 Blood Venous Aerobic Blood Culture - Final No Growth Day 5 04/19/18 10:10 Blood Venous Anaerobic Blood Culture - Final No Growth Day 5 04/19/18 10:10 Blood Venous Aerobic Blood Culture - Final No Growth Day 5 04/19/18 10:10 Blood Venous Anaerobic Blood Culture - Final No Growth Day 5 04/19/18 00:30 Urine Urine Culture - Final No Growth (<1,000 CFU/mL) 04/18/18 22:20 Nasal Nasal Screen MRSA (PCR) - Final Mrsa Not Detected 04/19/18 00:30 Urine Legionella Urinary Antigen - Final Negative Legionella Antigen 04/19/18 00:30 Urine Streptococcus pneumoniae Ag Screen - Final Negative S. pneumo Antigen 04/18/18 22:20 Nasal Influenza Types A,B Antigen - Final Specimen received for Influenza A/B Molecular testing Assess/Plan/Problems-Billing Assessment: 42 y/o female patient PMH current smoker, morbid obesity, recent diagnosis ILD and recent chronic hypoxic respiratory failure presenting to [facility] with complaint AMS and worsened respiratory failure. Evidence of intrapulmonary shunt on ECHO. - Patient Problems (1) Acute respiratory failure with hypoxia Current Visit: Yes Status: Acute Priority: High Code(s): J96.01 - ACUTE RESPIRATORY FAILURE WITH HYPOXIA SNOMED Code(s): 60516706 Comment: - Acute mixed (hypercapnic/hypoxic) respiratory failure suspected secondary ILD and intrapulmonary shunt. Less likley COPD. - appreciate Dr. Sebastian consult - applying for Trilogy. - Continue supplemental O2 - titrate down as tolerated. - Continue current Neb treatments recently adjusted by Dr. Sebastian and Solumedrol -Continue duonebs,dulera, prednisone 40mg daily. - BiPAP for naps and at night. - ILD workup as below. - stop BB given hx of COPD (2) Pulmonary arteriovenous malformation Current Visit: Yes Status: Acute Code(s): Q25.72 - CONGENITAL PULMONARY ARTERIOVENOUS MALFORMATION SNOMED Code(s): 318094296 Comment: follow-up pulm recs. may need referral to tertiary center for futher work up? consideration for pulmonary angiography? CT chests since 2016 have noted enlarged pulmonary artery compared to aorta, interpreted as evidence of possible pulmonary arterial hypertention. Consideration for RHC? (3) ILD (interstitial lung disease) Current Visit: No Status: Acute Code(s): J84.9 - INTERSTITIAL PULMONARY DISEASE, UNSPECIFIED SNOMED Code(s): 804477444 Comment: -Following with J[facility] - reportedly biopsy was suggestive of inflammatory process. will try to find these records. Additional ILD work-up will be started, intially CTD focused. NATALIIA, RF, Anti CCP, ds-DNA, Dunia, Scl-70, SSA, SSB,ANCA, HIV has had wnl CK in past, will defer aldolase consider referral to tertiary medical facility for further evaluation. (4) Altered mental status Current Visit: Yes Status: Acute Priority: High Code(s): R41.82 - ALTERED MENTAL STATUS, UNSPECIFIED SNOMED Code(s): 136015807 Comment: -Resolved -Likely due to hypoxia -EEG per Dr. Dunlap shows diffuse slowing which certain is consistent with her hx of hypoxia due to improperly using O2 machine -MRI of head and MRA of H&N: NAD intracranial abnormalities; although mild sinusitis found incidentally (5) Bipolar disorder Current Visit: Yes Status: Acute Priority: High Comment: -Stable -Continue Risperidone and Quetiapine, lamotrigine. (6) COPD (chronic obstructive pulmonary disease) Current Visit: No Status: Chronic Code(s): J44.9 - CHRONIC OBSTRUCTIVE PULMONARY DISEASE, UNSPECIFIED SNOMED Code(s): 47540421 Comment: Not in acute exacerbation Continue Spiriva, Dulera, prn nebulizers, prednisone (7) HTN (hypertension) Current Visit: Yes Status: Chronic Priority: High Code(s): I10 - ESSENTIAL (PRIMARY) HYPERTENSION SNOMED Code(s): 14109200 Comment: -BP stable -stop BB in patient with 7 year reported hx of COPD, consier CCB vs thiazide if uncontrolled. (8) DVT prophylaxis Current Visit: Yes Status: Acute Priority: High Code(s): OVT6090 - SNOMED Code(s): 020270038 Comment: -Continue Heparin SQq8H (9) Full code status Current Visit: Yes Status: Acute Priority: High Code(s): Z78.9 - OTHER SPECIFIED HEALTH STATUS SNOMED Code(s): 174449644 (10) Hypothyroidism Current Visit: Yes Status: Chronic Priority: High Code(s): E03.9 - HYPOTHYROIDISM, UNSPECIFIED SNOMED Code(s): 01313969 Comment: -TSH elevated -Continue Levothyroxine to 150 ug -Repeat TFTs in 6 wks (11) Tobacco use disorder Current Visit: No Status: Chronic Code(s): Z72.0 - TOBACCO USE SNOMED Code (s): 477004620 Comment: - Declines nicotine replacement, states she'll quit "cold turkey" -Advised life-style modifications Status and Disposition: medicine inpatient.
[2018-04-24] MEDS: ALPRAZolam TAB* 0.5 MG PO PRN ×2 (15:46→20:11)
[2018-04-24] MEDS: Albuterol/Ipratropium NEB.SOL* Albuterol 2.5 MG/Ipratropium 0.5 MG 3 ML INH PRN (17:28)
[2018-04-24] MEDS: QUEtiapine TAB* 100 MG PO SCH (20:11)
[2018-04-25] MEDS: Levothyroxine TAB* 150 MCG TAB PO SCH (06:22)
[2018-04-25] MEDS: Heparin VIAL(*) 5000 UNITS/ML VIAL (FIVE THOUSAND) SUBCUT SCH ×2 (06:23→13:40)
[2018-04-25] MEDS: Mometasone/Formoter 200/5 MDI INH SCH (07:59)
[2018-04-25] MEDS: lamoTRIgine TAB(*) 100 MG PO SCH (10:23)
[2018-04-25] MEDS: Omeprazole CAP* 20 MG PO SCH (10:23)
[2018-04-25] MEDS: risperiDONE TAB* 2 MG PO SCH (10:23)
[2018-04-25] MEDS: predniSONE TAB* 20 MG PO SCH (10:23)
[2018-04-25] MEDS: Aspirin EC TAB* 81 MG TAB.EC PO SCH (10:23)
[2018-04-25] MEDS: ALPRAZolam TAB* 0.5 MG PO PRN (13:38)
[2018-04-25] MEDS: Hydrocodone/Acetamin 10/325 1 TAB PO PRN (13:38)
[2018-04-25] MEDS: Baclofen TAB* 20 MG PO PRN (13:38)
[2018-04-25 15:59] VITALS: BP 179/91
--- NOTE | 2018-04-26 21:42 | DS ---
DISCHARGE SUMMARY: DATE OF ADMISSION: 04/18/18 DATE OF DISCHARGE: 04/25/18 ADMITTING PROVIDER: Eloy Covington NP PRIMARY CARE PHYSICIAN: Dr. Claudio Gauthier. CONSULTING MAIL HANDLER: Dr. Janette Sebastian. ATTENDING PHYSICIAN ON DAY OF DISCHARGE: Dr. Johnny Burrows. CHIEF COMPLAINT: Altered mental status. PRINCIPAL DIAGNOSES: 1. Altered mental status in the setting of acute on chronic hypoxic respiratory failure which is multifactorial includin. Interstitial lung disease. 3. Intrapulmonary shunts. 4. Obesity hypoventilation syndrome. 5. Chronic obstructive pulmonary disease. HISTORY OF PRESENT ILLNESS AND HOSPITAL COURSE: Alysia Aden is a 42-year -old female with past medical history of COPD, until recently a smoker, interstitial lung disease, morbid obesity with likely obesity hypoventilation, hypothyroidism, hypertension, bipolar disorder, and suspected interstitial lung disease, who was recently discharged from the hospital 6 days prior to admission on 04/13/18, she had initially been doing well; please see H and P of Eloy Covington for full details. There was a plan to set her up with BiPAP at home, but she, as I understand, would have to undergone qualification with sleep study. She seems to have been somewhat noncompliant with oxygen or at least not noted that her oxygen had come off and her boyfriend knows that she was very confused; there seemed to be correlation to when her oxygen was off. She admitted to worsening shortness of breath, attested that she was compliant with her nebs and other inhaler. She had an ABG demonstrating pH 7.38, PCO2 of 41, PO2 of 63, and bicarb of 24, and she had been initially on 4 L, satting 89% . She was referred to hospitalist service for altered mental status and acute- on-chronic respiratory failure. There seemed to be no focal neurological deficits. There was enough concern that the MRI and MRA of the head had been ordered. Brain MRI on 04/19/18 demonstrated mild sinus mucosal inflammatory disease without air fluid level to suggest acute sinusitis, otherwise was unremarkable. The head MRA also of 04/19/18 demonstrated no aneurysm, vascular malformation , occlusion, or stenosis of the visualized intracranial circulation. She had no leukocytosis, no fever, and antibiotics were not initiated. She was continued on her inhalers and prednisone 60 mg was started hospital day #2. She would have Pulmonology consult with her outpatient triple valve tester and the CT chest angiogram, which showed no CT evidence of pulmonary embolism, but the appearance of interstitial lung disease has not changed significantly since CT, also homogeneously hypoattenuating liver which could be seen in the setting of hepatic steatosis or other chronic infiltrative disease of the liver. She had a transthoracic echocardiogram on 04/18/18, which demonstrated ejection fraction of 65%, abnormal left ventricular diastolic function, there was increased basal septal hypertrophy without increased gradient across the left ventricular outflow tract. She had mild dynamic LVOT obstruction. There was trace tricuspid regurgitation, they were unable to estimate the right ventricular systolic pressure. She had [id number] mitral regurgitation, trace tricuspid regurgitation, her right atrium slightly dilated, left atrium slightly dilated. She had a limited repeat transthoracic echocardiogram at this time with bubble study specifically to look for any evidence of shunting and there were late bubble seen in the left atrium, these delayed appearance of saline contrast bubbles indicated possible intrapulmonary shunting. The RVSP was estimated at 37 mmHg, questionable findings of mild pulmonary hypertension. The patient had repeat ABGs done, but with and without BiPAP and with BiPAP was actually slightly worse. These were obtained on 04/23/18 and 04/24/18 respectively, the first 7.33, PCO2 51, PO2 60, bicarb 24.9; the next 7.40, PCO2 52, PO2 68, and bicarb 29.5. Dr. Sebastian recommended the patient be set up with Trilogy device at home and that has been obtained. Additional interstitial lung disease workup was initiated. Her rheumatoid factor was less than 10. HIV 1 and 2 is nonreactive. Send-out that are still pending include anti-double stranded DNA, NATALIIA, ANCA panel, scleroderma antibody, CCP antibody, Dunia antibody, anti SSA/Ro antibody. She remains requiring between 4 and 8 L of oxygen and I do recommend that she get further evaluation and close followup with Dr. Sebastian. She may ultimately need referral to a tertiary care facility where additional pulmonary angiography to confirm the shunting and possibly address it may be entertained versus a right heart cath, also to completely assess her pulmonary hypertension status though this would be of lesser priority than the first recommendation. She was continued on a steroid taper, was not bronchospastic on exam. DISCHARGE MEDICATIONS: Of note, the new medications are a prednisone 40 mg taper and omeprazole. 1. Albuterol/DuoNeb 1 neb q.4 hours p.r.n. 2. Alprazolam/Xanax 1 mg p.o. t.i.d. 3. Aspirin 81 mg daily. 4. Baclofen 20 mg four times a day. 5. Tessalon 200 mg p.o. q.8 hours p.r.n. 6. Budesonide 1 mg inhaled b.i.d. 7. [place] 1 tab p.o. t.i.d. 8. Lamictal 200 mg p.o. daily. 9. Levothyroxine 137 mcg p.o. daily. 10. Dulera 2 puffs inhaled b.i.d. 11. Nicotine inhaler q.2 hours p.r.n. 12. Nicotine patch. 13. Omeprazole 20 mg p.o. daily 14. Prednisone 10 mg daily (chronically and then with the taper of 20 mg tab to be taken 40 mg or 2 tabs for 4 days and then 20 mg 1 tab for 4 days, then return to the 10 mg other prescription). 15. Seroquel 400 mg p.o. daily. 16. Risperidone 4 mg p.o. b.i.d. FOLLOWUP: The patient is to follow up with Dr. Toni Gauthier within 7 days , Dr. Sebastian within 7 days, and referred to [facility]. She got [employer] to help set up her Trilogy - they are visiting her the late afternoon/early evening of discharge. TIME SPENT: On discharge 60 minutes. [id number]/[facility] #: [id number] ELIAZAR
== END 2018-04-25 16:45 | disposition home or self-care (01) | DRG 133 ==
LOC: ED 16:53 → ICU 19:34 → MED 04-22 19:53
PROVIDERS: ADMIT Internal Medicine; ATTEND Internal Medicine
PROC: 5A09357 Assistance with Respiratory Ventilation, Less than 24 Consecutive Hours, Continuous Positive Airway Pressure (ICD-10-PCS; principal; 2018-04-18)
PROC: 4A00X4Z Measurement of Central Nervous Electrical Activity, External Approach (ICD-10-PCS; 2018-04-19)
DX: J96.21 Acute and chronic respiratory failure with hypoxia (principal); Q25.72 Congenital pulmonary arteriovenous malformation; J84.9 Interstitial pulmonary disease, unspecified; E87.2 Acidosis; E66.2 Morbid (severe) obesity with alveolar hypoventilation; Z68.41 Body mass index [BMI] 40.0-44.9, adult; E03.9 Hypothyroidism, unspecified; I10 Essential (primary) hypertension; I25.10 Atherosclerotic heart disease of native coronary artery without angina pectoris; E78.00 Pure hypercholesterolemia, unspecified; J44.9 Chronic obstructive pulmonary disease, unspecified; K21.9 Gastro-esophageal reflux disease without esophagitis; G43.909 Migraine, unspecified, not intractable, without status migrainosus; E87.6 Hypokalemia; F31.9 Bipolar disorder, unspecified; F17.210 Nicotine dependence, cigarettes, uncomplicated; D22.9 Melanocytic nevi, unspecified; J01.90 Acute sinusitis, unspecified; K76.0 Fatty (change of) liver, not elsewhere classified; I08.1 Rheumatic disorders of both mitral and tricuspid valves; F41.0 Panic disorder [episodic paroxysmal anxiety]; R29.700 NIHSS score 0; Z91.19 Patient's noncompliance with other medical treatment and regimen; Z98.51 Tubal ligation status; Z82.49 Family history of ischemic heart disease and other diseases of the circulatory system; Z90.49 Acquired absence of other specified parts of digestive tract; Z86.718 Personal history of other venous thrombosis and embolism; Z88.1 Allergy status to other antibiotic agents; Z88.0 Allergy status to penicillin; Z88.8 Allergy status to other drugs, medicaments and biological substances; Z91.018 Allergy to other foods; Z56.0 Unemployment, unspecified; Z82.5 Family history of asthma and other chronic lower respiratory diseases; Z79.82 Long term (current) use of aspirin
CPT/HCPCS: 36415; 36600; 70450; 70544; 70551; 71045; 71275; 80048; 80053; 80175; 80320; 80329; 81003; 82140; 82550; 82565; 82803; 83516; 83605; 83735; 83880; 84100; 84436; 84439; 84443; 84479; 84481; 84484; 84520; 85025; 85060; 85610; 85730; 86038; 86200; 86225; 86235; 86431; 86703; 87040; 87086; 87641; 87899; 93005; 93306; 93308; 94640; 94660; 94762; 95819; 99285; 99406; A9270-GY; G0480; J1644; J7512; Q9967

== ENCOUNTER 2018-04-29 20:51 | Emergency (ER) | payer OTHER ==
--- OUTSIDE RECORDS SUMMARY | 2018-04-29 21:06 | XMS REPORT | Continuity of Care Document ---
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 Payers Type Date Identification Numbers Payment Provider Subscriber Effective: Policy Number: [id number] Michael Aden 2015 [facility] PayID: [id number] [place] [address] Advance Directives Description No Information Available Problems Description No Information Family History Date Family Member(s) Problem(s) Comments General Cancer, Colon General Cancer, Breast General Diabetes General Heart Disease General Cerebral Aneurysms Mother Cancer, Colon Social History Type Date Description Comments Sex Unknown Marital Status Andrew Casey Lives With Male Partner 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 Working [employer] Tobacco Use Start: Unknown Heavy tobacco smoker [...] 04/03 Active Device 1unit use to J44.1 jacinta kay MD medications for COPD Prednisone 03/23 [...] Active Capsules 40mg 30cap take one Claudio DR s capsule by [place] mouth every , MD morning Baclofen 07/19 Active Tablets 20mg 120ta Take One bs Tablet By [place] Mouth Four , MD Times A Day as Needed Cormax Scalp 07/06 Active Solution 0.05% 100ml 1 [facility] , MD day when showering Protonix 05/[address] 40mg 30tab take one Claudio s tablet by [place] mouth every , MD day Pulse Oxygen 03/07 Active For F17.210 [facility]. , Metoprolol 03/01 Active Tablets ER 50mg 30tab Take One Claudio Succinate ER 24HR s Tablet By [place] Mouth Every , MD Day Advair Diskus 09/20 Active Aerosol 250-50mcg 60uni inhale one Claudio /Dose ts puff by Heetdercarolynn mouth twice , MD a day Singulair 09/20 Active Tablets 10mg 90tab take 1 J44.9 Perla s tablet by P. mouth daily Blegen, in the M.D. evening for copd Ventolin HFA 08/10 Active Aerosol 108(90Bas 36uni Inhale 1 To Claudio e) ts 2 Puffs By Disha mcg/Act [...] /2014 mouth twice [place] a day , Levothyroxine 04/15 Active Tablets 137mcg 30tab Take One Claudio Sodium s Tablet By [place] Mouth Every , MD Day Aspirin 04/[address] 81mg 30tab take one Claudio s tablet by [place] mouth every , MD day Lamictal Active Tablets 200mg 1 tab by Unknown /0000 mouth every night Lamotrigine Active Tablets 200mg take one Unknown /0000 tablet by mouth once a day Acetazolamide Active Tablets 250mg Unknown /0000 Doxycycline 07/31 Hx Capsules 100mg 20cap 1 take by J44.1 Denys Hyclate /2017 s mouth [place] - capsule 2 III, 07/31 times per BOX GLUER-C day for 10 days for infection Prednisone 07/31 Hx Tablets 20mg 20tab take 3 tabs J44.1 Denys s by mouth x 3 [place] - days, then 2 III, 01/16 tabs by BOX GLUER-C mouth x 3 days, then 1 tab by mouth x 3 days then 1/2 tab by mouth x 4 days Doxycycline 07/31 Hx Capsules 100mg 20cap 1 take by J44.1 Denys Monohydrate s mouth [place] - capsule 2 III, 01/16 times per BOX GLUER-C day for 10 days for infection Dulera [...] 03/07 Baclofen 11/30 Hx Tablets 20mg S29.012A Heetdercarolynn - , 11/30 Baclofen 11/30 Hx Tablets [...] Tablets DR 40mg 30tab 1 by mouth s every day Disha Mauro MD 09/20 Doxycycline 06/07 Hx Tablets 100mg 20tab 1 tab by J44.9 Claudio Hyclkathryn s mouth twice Wagnerks - a day MD 06/23 [place] 06/07 Hx Tablets 5-325mg 90tab 1 tab by Claudio s mouth three Disha - times a day , 06/07 as needed Tessalwayne Perles 06/07 Hx Capsules 100mg 60cap take 1 J44.9 Claudio s capsule by Disha - mouth 3 , 10/23 times day as needed for cough Clindamycin HCL 05/17 Hx Capsules 300mg 21cap take 1 H66.91 Claudio s capsule by Disha - mouth every , 06/07 8 hours for 7 days Morphine Sulfate 05/17 Hx Tablets 15mg 60tab 1 tab by Claudio s mouth two Guerreroetarmida - times a day , 06/07 as needed Azithromycin 05/05 Hx Tablets 250mg 6tabs take 2 J01.90 Mally tablets [place] Jarrett today then 1 BOX GLUER-C 06/07 tablet daily for the next 4 days Benzonatate 05/05 Hx Capsules 100mg 45cap take 1 J01.90 Mally s capsules by Luiza, - mouth three BOX GLUER-C 03/27 times a day as needed for coughing Zyrtec Allergy 04/14 Hx Tablets 10mg 30tab 1 by mouth Claudio s every day Disha - , 06/23 Magnesium Oxide 03/29 Hx Capsules 400mg 30cap 1 tab by Claudio -MG Supplement s mouth daily Guerreroetarmida - , 06/23 Magnesium Oxide 03/29 [...] 120ta Take One S29.012A bs Tablet By Disha - Mouth Four , 11/30 Times A Day as Needed Cyclobenzaprine 09/02 Hx Tablets 10mg 90tab take 1 M54.5 Claudio HCL s tablet by Disha - mouth 3 , 10/06 times per day for muscle spasm with pain Hydrocodone-Acet 09/02 Hx Tablets 5-325mg 30tab 1 tab by M54.5 Claudio aminophen s mouth three Heetderks - times a day , 10/19 as needed Ranitidine 150 07 Hx Tablets 150mg 60tab 1 tab by [...] Claudio s every day Disha - , 03/22 Magnesium 04/15 Hx Capsules 400mg 30cap 1 tab by Claudio s mouth daily [place] - , 03/29 Trazodone HCL 04/15 Hx Tablets 100mg 2 tab by Claudio mouth every [place]ks - night , 10/06 Cetirizine HCL 04/15 Hx Tablets 10mg 30tab 1 by mouth Claudio /2014 s every day Guerreroetarmida - , 07/19 Amitriptyline 04/15 Hx Tablets 25mg 30tab as needed Claudio HCL /2014 s Heetarmida - , 07/19 Topiramate 04/15 Hx Tablets 100mg 60tab once a day Claudio jacinta Mauro MD 01/26 Clopidogrel 04/15 Hx [...] Dissolve Z72.0 Claudio Polacrilex its by mouth Wagnerks - lozenge MD Kelly 10/06 times day for smoking cessation Albuterol 00/00 Hx Unknown Sulfate /0000 - 08/22 Albuterol HFA 00/00 Hx Unknown /0000 - 08/22 Diazepam 00/00 Hx Tablets 5mg Unknown /0000 - 03/15 Oxycodone-Acetam 00/00 Hx Tablets 5-325mg 60tab 1 by mouth Claudio inophen /0000 s every 4 [place] - martha dubose MD 03/15 severe pain Prednisone 00/00 Hx Tablets 20mg Take Two Unknown /0000 Tablets By - Mouth Every Dose Due 6 12 17 Prednisone 00/00 Hx Tablets 10mg Unknown /0000 - 03/07 Immunizations CPT Code Status Date Vaccine Lot # [id number] Given 03/27/2018 Influenza Virus Vaccine, Quadrivalent, 3 Yr > [id number] Quad, Preserv Free 95756 Given 03/07/2017 Influenza Virus Vaccine, Quadrivalent, 3 Yr > [id number] Quad, Preserv Free 76233 Given 03/15/2016 Influenza Virus Vaccine, Quadrivalent, 3 Yr > [id number] Quad, Preserv Free 88758 Given 04/14/2015 Influenza Virus Vaccine, Quadrivalent, 3 Yr > [id number] Quad, Preserv Free 76541 Given 06/18/2009 Tdap (Adacel) Vital Signs Date [...] Date Facility Test Result H/L Range Note Laboratory test 04/18/2018 [facility] Pathologist ( SEE NOTE) 1 finding [phone] Review Manual 04/18/2018 [facility] Neutrophil % 63 % 38- 83 Differential [phone] Lymphocytes % 17 % Low 25-47 Monocytes % 12 % High 0-7 Eosinophils % 0 % 0-6 Basophil % 0 % 0-2 Variant Lymph % 8 % High 0-6 Abs Neutrophils 6.6 10^3/uL 1.5-7.7 Abs Lymphocytes 1.8 10^3/uL 1.0-4.8 Abs Monocytes 1.2 10^3/uL High 0-0.8 Abs Eosinophils 0 10^3/uL 0-0.6 Abs Basophils 0 10^3/uL 0-0.2 RBC Morphology Normal Normal Urinalysis Profile 04/18/2018 [facility] Urine Color Yellow [phone] Urine Appearance Cloudy Urine Specific [place] 1.020 1.010-1.030 Urine pH 5.0 5-9 Urine Urobilinogen Negative Negative Urine Ketones Negative Negative Urine Protein Negative Negative Urine Leukocytes Negative Negative Urine Blood Negative Negative Urine Nitrite Negative Negative Urine Bilirubin Negative Negative Urine Glucose Negative Negative CBC Auto Diff 04/18/2018 [facility] White Blood 10.4 10^3/uL 3.5-10.8 [phone] Count Red Blood Count 5.75 10^6/uL High 4.00-5.40 Hemoglobin 16.2 g/dL High 12.0-16.0 Hematocrit 49 % High 35-47 Mean Corpuscular Volume 85 fL 80-97 Mean Corpuscular Hemoglobin 28 pg 27-31 Mean Corpuscular HGB Conc 33 g/dL 31-36 Red Cell Distribution Width 16 % High 10.5-15 Platelet Count 136 10^3/uL Low 150-450 Mean Platelet Volume 9.5 um3 7.4-10.4 Abs Neutrophils 6.6 10^3/uL 1.5-7.7 Abs Lymphocytes 1.8 10^3/uL 1.0-4.8 Abs Monocytes 1.8 10^3/uL High 0-0.8 Abs Eosinophils 0 10^3/uL 0-0.6 Abs Basophils 0.1 10^3/uL 0-0.2 Laboratory test 04/18/2018 [facility] Ammonia 38 mcmol/L 16-53 finding [phone] B-Type Natriuretic Peptide BNP 64 pg/mL 2 Lactic Acid 3.4 mmol/L High 0.5-2.0 3 Thyroxine 7.55 g/mL 6.09-12.23 Free T4 0.81 ng/dL 0.61-1.12 Free T3 3.60 pg/mL 2.5-3.9 Total T3 91 ng/dL 87-178 Arterial Blood Gas 04/18/2018 [facility] PH Arterial 7.38 7.35-7.45 [phone] Pco2 Arterial 41 mmHg 35-45 Po2 Arterial 63 mmHg Low 80-100 O2 Saturation Arterial 93.3 % Low 95-98 Base Excess Arterial -0.9 -2.0-2.0 4 Hco3 Arterial 24.0 mmol/L 19-31 Laboratory test 04/18/2018 [facility] Magnesium 1.9 mg/dL 1.9-2.7 finding [phone] Creatine Kinase 37 U/L 10-223 TSH (Thyroid Stimulating Horm) 25.72 mcIU/mL High 0.34-5.60 Troponin-I (TnI) 0.04 ng/mL High <0.04 5 Comp Metabolic Panel 04/18/2018 [facility] Sodium 141 mmol/L 135-145 [phone] Potassium 3.4 mmol/L Low 3.5-5.0 Chloride 103 mmol/L 101-111 Co2 Carbon Dioxide 24 mmol/L 22-32 Anion Gap 14 mmol/L High 2-11 Glucose 213 mg/dL High 70-100 Blood Urea Nitrogen 20 mg/dL 6-24 Creatinine 0.98 mg/dL High 0.51-0.95 BUN/Creatinine Ratio 20.4 High 8-20 Calcium 9.7 mg/dL 8.6-10.3 Total Protein 7.6 g/dL 6.4-8.9 Albumin 4.4 g/dL 3.2-5.2 Globulin 3.2 g/dL 2-4 Albumin/Globulin Ratio 1.4 1-3 Total Bilirubin 0.50 mg/dL 0.2-1.0 Alkaline Phosphatase 85 U/L 34-104 Alt 37 U/L 7-52 Ast 17 U/L 13-39 Egfr Non- 61.7 >60 Egfr 74.6 >60 6 Laboratory test 04/18/2018 [facility] Acetaminophen < 15 g/mL 7 finding [phone] Alcohol < 10 mg/dL <10 Salicylate < 2.50 mg/dL <30 Inr/Protime 04/18/2018 [facility] Inr 0.88 0.77- 1.02 [phone] Laboratory test 04/18/2018 [facility] Troponin-I 0.03 ng/mL <0.04 finding [phone] (TnI) Lactic Acid 2.8 mmol/L High 0.5-2.0 8 Creatinine 04/18/2018 [facility] Creatinine 0.94 mg/ dL 0.51-0.95 [phone] Egfr Non- 64.7 >60 Egfr 78.3 >60 9 Laboratory test 04/18/2018 [facility] Partial 28.8 seconds 26.0-36.3 finding [phone] Thrombo Time PTT Blood Urea Nitrogen BUN 21 mg/dL 6-24 Inr/Protime 04/07/2018 [facility] Inr 0.92 0.77- 1.02 [phone] Laboratory test 04/07/2018 [facility] Partial 28.7 seconds 26.0-36.3 finding [phone] Thrombo Time PTT Lactic Acid 2.0 mmol/L 0.5-2.0 10 CBC Auto Diff 04/07/2018 [facility] White Blood 8.1 10^3/uL 3.5-10.8 [phone] Count Red Blood Count 5.09 10^6/uL 4.00-5.40 [...] Blood Cells % 0 Laboratory test 04/07/2018 [facility] B-Type 111 pg/ mL High 11 finding [phone] Natriuretic Peptide BNP Comp Metabolic 04/07/2018 [facility] Sodium 139 mmol/ L 135-1 Panel [phone] Potassium 4.4 mmol/L 3.5-5.0 Chloride 105 [...] Egfr Non- 68.0 >60 Egfr 82.3 >60 12 Laboratory test 04/07/2018 [facility] Magnesium 2.2 mg/dL 1.9-2.7 finding [phone] Troponin-I (TnI) 0.02 ng/mL <0.04 HCG < 0.60 mIU/mL 13 TSH (Thyroid Stimulating Horm) 8.46 mcIU/mL High 0.34-5.60 Inr/Protime 01/27/2018 [facility] Inr 0.93 0.77- 1.02 [phone] Laboratory test 01/27/2018 [facility] B-Type 21 pg/ mL 14 finding [phone] Natriuretic Peptide BNP CBC Auto Diff 01/27/2018 [facility] White Blood 5.1 3.5-10.8 [phone] Count 10^3/uL Red Blood Count 4.96 10^6/uL 4.00-5.40 Hemoglobin [...] Blood Cells % 0.1 Laboratory test 01/27/2018 [facility] Creatine Kinase 90 U/L 10-223 finding [phone] C Reactive Protein 25.72 mg/L High <8.01 Troponin-I (TnI) 0.00 ng/mL <0.04 Lactic Acid 1.7 mmol/L 0.5-2.0 15 Comp Metabolic Panel 01/27/2018 [facility] Sodium 139 mmol/L 135-145 [phone] Potassium 3.7 mmol/L 3.5-5.0 Chloride 106 mmol/L [...] Egfr Non- 68.9 >60 Egfr 83.4 >60 16 Laboratory test 01/27/2018 [facility] Partial 30.1 seconds 26.0-36.3 finding [phone] Thrombo Time PTT Laboratory test 01/10/2018 [facility] Troponin-I 0.00 ng/mL <0.04 finding [phone] (TnI) Comp Metabolic 01/10/2018 [facility] Sodium 140 mmol/ L 135-145 Panel [phone] Potassium 4.1 mmol/L 3.5-5.0 Chloride 105 mmol/L [...] Egfr Non- 70.7 >60 Egfr 85.6 >60 17 Laboratory test 01/10/2018 [facility] Troponin-I 0.01 ng/mL <0.04 finding [phone] (TnI) CBC Auto Diff 01/10/2018 [facility] White Blood 6.0 3.5-10.8 [phone] Count 10^3/uL Red Blood Count 4.88 10^6/uL 4.00-5.40 Hemoglobin [...] Basophils 0.1 10^3/uL 0-0.2 Laboratory test 01/10/2018 [facility] Lactic Acid 1.4 mmol/L 0.5-2.0 18 finding [phone] Manual 01/10/2018 [facility] Neutrophil % 70 % 38- 83 Differential [phone] Lymphocytes % 16 % Low 25-47 Monocytes % 11 % High 0-7 Eosinophils % 0 % 0-6 Basophil % 0 % 0-2 Variant Lymph % 3 % 0-6 Abs Neutrophils 4.2 10^3/uL 1.5-7.7 Abs Lymphocytes 1.0 10^3/uL 1.0-4.8 Abs Monocytes 0.7 10^3/uL 0-0.8 Abs Eosinophils 0 10^3/uL 0-0.6 Abs Basophils 0 10^3/uL 0-0.2 RBC Morphology Normal Normal Laboratory test 01/10/2018 [facility] Pathologist ( SEE NOTE) 19 finding [phone] Review Laboratory test 02/10/2017 [facility] Lactic Acid 1.6 mmol/L 0.5-2 20 finding [phone] Arterial Blood 02/10/2017 [facility] PH Arterial 7.39 7.35- Gas [phone] 7.45 Pco2 Arterial 42 mmHg 35-45 Po2 Arterial 68 mmHg Low 80-100 O2 Saturation Arterial 96.4 % 95-98 Base Excess Arterial 0.3 -2.0-2.0 21 Hco3 Arterial 24.9 mmol/L 19-31 Inr/Protime 01/04/2017 [facility] Inr 0.92 0.89- 1.11 [phone] CBC Auto Diff 01/04/2017 [facility] White Blood 5.9 10^3/uL 3.5-10.8 [phone] Count Red Blood Count 4.77 10^6/uL 4.0-5.4 [...] Red Blood Cells % 0.3 Laboratory test 01/04/2017 [facility] Partial 28.3 seconds 26.0-36.3 finding [phone] Thrombo Time PTT D Dimer Quantitative < 200 ng/mL Less Than 230 22 Comp Metabolic Panel 01/04/2017 [facility] Sodium 135 mmol/L 133-145 [phone] Potassium 3.8 mmol/L 3.5-5.0 Chloride 105 mmol/L [...] Egfr Non- 77.2 >60 Egfr 99.2 >60 23 Laboratory test 01/04/2017 [facility] Troponin-I (TnI ) 0.00 ng/mL <0.04 finding [phone] B-Type Natriuretic Peptide BNP 30 pg/mL 24 Blood Culture SEE RESULT BELOW 25 CBC Auto Diff 11/24/2016 [facility] White Blood 7.1 10^3/uL 3.5-10.8 [phone] Count Red Blood Count 5.10 10^6/uL 4.0-5.4 [...] Cells % 0 Comp Metabolic Panel 11/24/2016 [facility] Sodium 133 mmol/L 133-145 [phone] Potassium 4.2 mmol/L 3.5-5.0 Chloride 100 mmol/L [...] Egfr Non- 68.3 >60 Egfr 87.9 >60 26 Laboratory test 11/24/2016 [facility] Troponin-I (TnI ) 0.01 ng/mL <0.04 finding [phone] Lactic Acid 2.0 mmol/L 0.5-2.0 27 B-Type Natriuretic Peptide BNP 21 pg/mL 28 C Reactive Protein 61.01 mg/L High < 5.00 29 Blood Culture SEE RESULT BELOW 30 Lipid Profile 10/23/2016 [facility] Triglycerides 125 mg/dL 31 (Trig/Chol/HDL) [phone] Cholesterol 164 mg/dL 32 HDL Cholesterol 31.7 mg/dL 33 LDL Cholesterol 107 mg/dL 34 Laboratory test 10/23/2016 [facility] Hemoglobin A1c 5.8 % Less than 35 finding [phone] (Glyco HGB) 6.0 CBC Auto Diff 10/23/2016 [facility] White Blood 5.7 3.5-10.8 [phone] Count 10^3/uL Red Blood Count 5.06 10^6/uL [...] Count 5.7 10^3/ul 3.5-10.8 Laboratory test 07/26/2016 [facility] Body Fluid SEE RESULT 36, 37 finding [phone] Cult & Gram BELOW Stain [employer] Profile SEE RESULT BELOW 38 Laboratory test 07/26/2016 [facility] Fungal Cult - SEE RESULT 39 finding [phone] Other Sources BELOW Laboratory test 07/26/2016 [facility] Fungal Cult - SEE RESULT 40 finding [phone] Other Sources BELOW Laboratory test 07/26/2016 [facility] Mycobacterial See Comment 41 finding [phone] Culture Laboratory 07/15/2016 N2N/CCD Import Absolute Basophils [...] 5.3 10^3/ul 3.5-10.8 CBC Auto Diff 07/15/2016 [facility] White Blood 5.3 10^3/uL 3.5-10.8 [phone] Count Red Blood Count 4.83 10^6/uL 4.0-5.4 [...] Cells % 0 Comp Metabolic Panel 07/15/2016 [facility] Sodium 137 mmol/L 133-145 [phone] Potassium 3.5 mmol/L 3.5-5.0 Chloride 105 mmol/L [...] Egfr Non- 78.7 >60 Egfr 101.2 >60 42 Laboratory test finding 07/15/2016 [facility] Inr 0.99 0.89-1.11 [phone] Partial Thrombo Time PTT 30.2 seconds 26.0-36.3 CBC Auto Diff 06/23/2016 [facility] White Blood 5.6 10^3/uL 3.5-10.8 [phone] Count Red Blood Count 4.75 10^6/uL 4.0-5.4 [...] Cells % 0.1 Comp Metabolic Panel 06/23/2016 [facility] Sodium 136 mmol/L 133-145 [phone] Potassium 4.1 mmol/L 3.5-5.0 Chloride 103 mmol/L [...] Egfr Non- 66.1 >60 Egfr 85.0 >60 43 Laboratory test 06/23/2016 [facility] Free T4 (Free 0.85 0.61-1.12 44 finding [phone] Thyroxine) ng/dL Laboratory test 06/23/2016 [facility] TSH (Thyroid 6.73 High 0.34-5.60 45 finding [phone] Stim Horm) mcIU/mL CBC Auto Diff 03/15/2016 [facility] White Blood 6.3 3.5-10.8 [phone] Count 10^3/uL Red Blood Count 4.85 10^6/uL 4.0-5.4 Hemoglobin [...] Red Blood Cells % 0 Laboratory test 03/15/2016 [facility] Free T4 (Free 0.72 ng/dL 0.61-1.12 46 finding [phone] Thyroxine) T3 Total 1.04 ng/mL 0.87-1.78 47 TSH (Thyroid Stim Horm) 10.86 mcIU/mL High 0.34-5.60 48 Laboratory test 11/23/2015 [facility] Troponin I 0.00 ng/mL <0.03 49, 50 finding [phone] Urinalysis 11/23/2015 [facility] Urine Color Yellow Profile [phone] Urine Appearance Turbid Urine Specific [place] 1.016 1.010-1.030 Urine pH 7.0 5-9 Urine [...] Urine Yeast Present Absent Laboratory test 11/23/2015 [facility] Urine Culture SEE RESULT 51 finding [phone] BELOW CBC Auto Diff 11/23/2015 [facility] White Blood 3.5 10^3/uL 3.5-10 [phone] Count .8 Red Blood Count 4.55 10^6/uL 4.0-5.4 Hemoglobin [...] Blood Cells % 0.1 Comp Metabolic Panel 11/23/2015 [facility] Sodium 139 mmol/L 133-145 [phone] Potassium 3.7 mmol/L 3.5-5.0 Chloride 105 mmol/L [...] Egfr Non- 72.4 >60 Egfr 93.1 >60 52 Laboratory test 11/23/2015 [facility] Magnesium 2.3 mg/dL 1.9-2.7 finding [phone] Creatine Kinase 65 U/L 10-223 Troponin I 0.00 ng/mL <0.03 53 TSH (Thyroid Stimulating Horm) 4.07 ?IU/mL 0.34-5.60 CBC Auto Diff 11/08/2015 [facility] White Blood 4.0 10^3/uL 3.5-10.8 [phone] Count Red Blood Count 4.71 10^6/uL 4.0-5.4 [...] Blood Cells % 0.1 Urinalysis Profile 11/04/2015 [facility] Urine Color Yellow [phone] Urine Appearance Cloudy Urine Specific [place] 1.010 1.010-1.030 Urine pH 7.0 5-9 Urine Urobilinogen Negative Negative Urine Ketones Negative Negative Urine Protein Negative Negative Urine Leukocytes 2+ Negative Urine Blood Negative Negative Urine Nitrite Negative Negative Urine Bilirubin Negative Negative Urine Glucose Negative Negative Urine White Blood Cell Trace(0-5/hpf) Absent Urine Red Blood Cell Absent Absent Urine Bacteria Absent Absent Urine Squamous Epithelial Cell Present Absent Laboratory test 11/04/2015 [facility] Urine Culture SEE RESULT 54 finding [phone] BELOW Inr/Protime 11/04/2015 [facility] Inr 0.88 Low 0.89 -4 [phone] .11 Comp Metabolic 11/04/2015 [facility] Sodium 137 mmol/ L 133-14 Panel [phone] Potassium 4.5 mmol/L 3.5-5.0 Chloride 105 [...] Egfr Non- 75.4 >60 Egfr 97.0 >60 55 Laboratory test 11/04/2015 [facility] HCG < 0.60 56 finding [phone] mIU/mL Laboratory test 08/15/2015 [facility] TSH (Thyroid 4.07 ?IU/mL 0.34- finding [phone] Stimulating Horm) 5.60 CKMB 08/15/2015 [facility] CKMB ng/mL 1.7 ng/mL 0.6-6 [phone] .3 Laboratory test 08/15/2015 [facility] Magnesium 2.1 mg/dL 1.9-2 finding [phone] .7 Lipase 25 U/L 11.0-82.0 Creatine Kinase 53 U/L 10-223 C Reactive Protein 17.16 mg/L High < 5.00 57 Troponin I 0.00 ng/mL <0.03 58 Comp Metabolic Panel 08/15/2015 [facility] Sodium 135 mmol/L 133-145 [phone] Potassium 3.7 mmol/L 3.5-5.0 Chloride 110 mmol/L [...] Egfr Non- 79.0 >60 Egfr 101.7 >60 59 Laboratory test 08/15/2015 [facility] Partial 35.8 seconds 26.0-36.3 finding [phone] Thrombo Time PTT B-Type Natriuretic Peptide BNP 10 pg/mL 60 Inr/Protime 08/15/2015 [facility] Inr 1.07 0.89- 1.11 [phone] Laboratory test 08/15/2015 [facility] Lactic Acid 0.9 0.5-2.0 61 finding [phone] mmol/L CBC Auto Diff 08/15/2015 [facility] White Blood 2.7 Low 3.5-10.8 [phone] Count 10^3/uL Red Blood Count 4.81 10^6/uL 4.0-5.4 Hemoglobin [...] 0-2 Nucleated Red Blood Cells % 0.1 Lipid Profile 07/19/2015 [facility] Triglycerides 158 mg/dL 62 (Trig/Chol/HDL) [phone] Cholesterol 177 mg/dL 63 HDL Cholesterol 33.5 mg/dL 64 LDL Cholesterol 112 mg/dL 65 Laboratory test 07/19/2015 [facility] Hemoglobin A1c 5.4 % Less than 66 finding [phone] (Glyco HGB) 6.0 CBC Auto Diff 07/19/2015 [facility] White Blood 4.0 3.5-10.8 [phone] Count 10^3/uL Red Blood Count 4.75 10^6/uL [...] Cells % 0.2 Comp Metabolic Panel 07/19/2015 [facility] Sodium 136 mmol/L 133-145 [phone] Potassium 4.6 mmol/L 3.5-5.0 Chloride 107 mmol/L [...] Egfr Non- 77.9 >60 Egfr 100.2 >60 67 1 Erythrocytosis with increased hemoglobin. If polycythemia vera is a clinical consideration, recommend correlation with JAK2 analysis. Reviewed by Thalia Acosta MD 2 >100 to <200 pg/mL: likely compensated congestive heart failure (CHF) 200 to 400 pg/mL: likely moderate CHF >400 pg/mL: likely moderate to severe CHF 3 Critical Result LACT:3.4 Called to [id number] at: 17:49:25 by:[id number] Read back by:[id number] [place] Severe Sepsis and Septic Shock Management Bundle Measure requires all lactic acids initially measuring >2.0 mmol/L be repeated. 4 Reference ranges based on room air. 5 Result TnIDx:0.04 Called to [id number] at: 18:04:12 by:[id number] Read back by: [id number] 6 Because ethnic data is not always [...] 5 Kidney failure <15 (or dialysis) 7 Therapeutic concentration: <50 ug/mL Toxic concentration: >120 ug/mL 8 Critical Result LACT:2.8 Called to [id number] at: 20:44:35 by:[id number] Read back by:[id number] [facility] Severe Sepsis and Septic Shock Management Bundle Measure requires all lactic acids initially measuring >2.0 mmol/L be repeated. 9 Because ethnic data is not always [...] 5 Kidney failure <15 (or dialysis) 10 [facility] Severe Sepsis and Septic Shock Management Bundle Measure requires all lactic acids initially measuring >2.0 mmol/L be repeated. 11 >100 to <200 pg/mL: likely compensated congestive heart failure (CHF) 200 to 400 pg/mL: likely moderate CHF >400 pg/mL: likely moderate to severe CHF 12 Because ethnic data is not always readily [...] 15-29 5 Kidney failure <15 (or dialysis) 13 <5.0 Negative 5.0 - 25.0 Indeterminate (Repeat testing recommended after 72 hours) >25.0 Positive Perimenopausal women can display HCG levels of up to 20 mIU/mL 14 >100 to <200 pg/mL: likely compensated congestive heart failure (CHF) 200 to 400 pg/mL: likely moderate CHF >400 pg/mL: likely moderate to severe CHF 15 [facility] Severe Sepsis and Septic Shock Management Bundle Measure requires all lactic acids initially measuring >2.0 mmol/L be repeated. 16 Because ethnic data is not always readily [...] 15-29 5 Kidney failure <15 (or dialysis) 17 Because ethnic data is not always [...] 5 Kidney failure <15 (or dialysis) 18 [facility] Severe Sepsis and Septic Shock Management Bundle Measure requires all lactic acids initially measuring >2.0 mmol/L be repeated. 19 Mild monocytosis favor reactive. Reviewed by Dr. Andrews 20 [facility] Severe Sepsis and Septic Shock Management Bundle Measure requires all lactic acids initially measuring >2.0 mmol/L be repeated. 21 Reference ranges based on room air. 22 Please note: The following may produce a false positive D Dimer test: - Rheumatoid factor greater than 60 IU/ml - Plasma hemoglobin greater than 0.05 gm/dl - Bilirubin greater than 50 mg/dl - Lipids greater than 1000 mg/dl - FDP greater than 20 ug/ml 23 Because ethnic data is not always [...] 5 Kidney failure <15 (or dialysis) 24 >100 to <200 pg/mL: likely compensated congestive heart failure (CHF) 200 to 400 pg/mL: likely moderate CHF >400 pg/mL: likely moderate to severe CHF 25 SEE RESULT BELOW Name: ALYSIA ADEN : [address]: Jorge Mendoza MD Acct: [id number] Unit: [id number] AGE: 41 Location: ED Re01/03/17 SEX: F Status: DEP ER SPEC: [id number] YOANA: 01/04/[address] [facility] [address]: Jorge Mendoza MD REQ: [id number] RECD: 01/04/17 STATUS: AALIYAH JEWELL DR: Claudio Gauthier MD _ SOURCE: BLOOD,VENO SPDESC: ORDERED: Blood Cult COMMENTS: Patient is On Antibiotics? NO Procedure Result Reported Site Aerobic Culture Bottle Final 01/09/17- 150 ML No Growth Day 5 Anaerobic Culture Bottle Final 01/09/17150 ML No Growth Day 5 * ML - MAIN LAB ([facility]) . END OF REPORT * ML=Testing performed at Main Lab DEPARTMENT OF PATHOLOGY, [address] [place] [address] John Andrews M.D. Director [facility] # [id number] 26 Because ethnic data is not always [...] 5 Kidney failure <15 (or dialysis) 27 [facility] Severe Sepsis and Septic Shock Management Bundle Measure requires all lactic acids initially measuring >2.0 mmol/L be repeated. 28 >100 to <200 pg/mL: likely compensated congestive heart failure (CHF) 200 to 400 pg/mL: likely moderate CHF >400 pg/mL: likely moderate to severe CHF 29 Acute inflammation: >10.00 30 SEE RESULT BELOW Name: ALYSIA ADEN : [address]: Nahun Ferguson MD Acct: [id number] Unit: [id number] AGE: 41 Location: [address] Re11/25/16 Dis: 11/26/16 SEX: F Status: DIS IN SPEC: [id number] YOANA: 11/24/[address]: Flaquito Coto DO REQ: [id number] RECD: 11/24/16 STATUS: AALIYAH JEWELL DR: Claudio Gauthier MD _ SOURCE: BLOOD,VENO [facility] ORDERED: Blood Cult Procedure Result Reported Site Aerobic Culture Bottle Final 11/29/16- 2207 ML No Growth Day 5 Anaerobic Culture Bottle Final 11/29/16- 2207 ML No Growth Day 5 * ML - MAIN LAB ([facility]) . END OF REPORT * ML=Testing performed at Main Lab DEPARTMENT OF PATHOLOGY, [address] [place] [address] John Andrews M.D. Director [facility] # [id number] 31 Desirable <150 Borderline high 150-199 High 200-499 Very High >500 32 Desirable <200 Borderline high 200-239 High >239 33 Low <40 Desirable: 40-60 High: >60 34 Desirable: <100 mg/dL Near Optimal: 100-129 mg/dL Borderline High: 130-159 mg/dL High: 160-189 mg/dL Very High: >189 mg/dL 35 Therapeutic target for the treatment of diabetes Mellitus patients is <7% HBA1C, and in selective patients <6.0%.Please refer to [employer] Diabetic care guidelines for further information. 36 LEFT UPPER LOBE LAVAGE: LUNG NODULES, LEFT UPPER LOBE 37 SEE RESULT BELOW Name: ALYSIA ADEN : [address]: Janette Sebastian MD Acct: [id number] Unit: [id number] AGE: 40 Location: OR Re07/26/16 SEX: F Status: NATALIE SDC SPEC: [id number] YOANA: 07/26/16-[address] [facility] [address]: Janette Sebastian MD REQ: [id number] RECD: 07/26/168 STATUS: ALAIYAH JEWELL DR: Claudio Gauthier MD _ SOURCE: [...] performed at Main Lab DEPARTMENT OF PATHOLOGY, [address] [place] [address] John Andrews M.D. Director [facility] # [id number] 38 SEE RESULT BELOW Name: ALYSIA ADEN DOB: [address]: Janette Sebastian MD Acct: [id number] Unit: [id number] AGE: 40 Location: OR Re07/26/16 SEX: F Status: REG [facility] SPEC: [id number] YOANA: 07/26/16-[address]: Janette Sebastian MD REQ: [id number] RECD: 07/26/16-1314 STATUS: RES OTHR DR: Claudio [...] for diagnosis. * ML - MAIN LAB ([facility]) . END OF REPORT * ML=Testing performed at Main Lab DEPARTMENT OF PATHOLOGY, [address] [place] [address] John Andrews M.D. Director [facility] # [id number] 39 SEE RESULT BELOW Name: ALYSIA ADEN : [address]: Janette Sebastian MD Acct: [id number] Unit: [id number] AGE: 40 Location: OR Re07/26/16 SEX: F Status: DEP SDC SPEC: [id number] OYANA: 07/26/16-[address] [facility] [address]: Janette Sebastian MD REQ: [id number] RECD: 07/26/16-131 STATUS: RES OTHR DR: Claudio Gauthier MD [...] performed at Main Lab DEPARTMENT OF PATHOLOGY, [address] [place] [address] John Andrews M.D. Director [facility] # [id number] 40 SEE RESULT BELOW Name: ALYSIA ADEN : [address]: Janette Sebastian MD Acct: [id number] Unit: [id number] AGE: 40 Location: OR Re07/26/16 SEX: F Status: DEP SDC SPEC: [id number] YOANA: 07/26/16-[address] [facility] [address]: Janette Sebastian MD REQ: [id number] RECD: 07/26/16-1314 STATUS: AALIYAH JEWELL DR: Claudio [...] highly recommended for diagnosis. * ML - [facility] ([facility]) . END OF REPORT * ML=Testing performed at Main Lab DEPARTMENT OF PATHOLOGY, [address] [place] [address] John Andrews M.D. Director [facility] # [id number] 41 SOURCE: BRONCHOALVEOLAR LAVAGE, LEFT UPPER LOBE LAVAGE MYCOBACTERIAL CULTURE FINAL No growth after 60 days of incubation. Test Performed by: [address] [address] 42 Because ethnic data is not always [...] 5 Kidney failure <15 (or dialysis) 43 Because ethnic data is not always [...] 5 Kidney failure <15 (or dialysis) 44 [id number] 45 [id number] 46 [id number] Comment: 23:30 please 50 Reference Range and Interpretation: TnI (ng/mL) Interpretation Less Than 0.03 ng/mL Not supportive of diagnosis of GA 0.03 - 0.50 ng/mL Indeterminate: suggest serial studies if clinically indicated. Greater than 0.5 ng/mL Consistent with diagnosis of GA 51 SEE RESULT BELOW Name: ALYSIA ADEN : [address]: Manuela Lopez MD Acct: [id number] Unit: [id number] AGE: 40 Location: ED Re11/23/15 SEX: F Status: DEP ER SPEC: [id number] YOANA: 11/23/[address] [facility] [address]: Manuela Lopez MD REQ: [id number] RECD: 11/23/15 STATUS: AALIYAH JEWELL DR: Claudio Gauthier MD _ SOURCE: URINE SPDESC: ORDERED: Urine Culture Procedure Result Reported Site Urine Culture Final 11/25/15- 806 ML No growth of clinically significant organisms * ML - MAIN LAB ([facility]) . END OF REPORT * ML=Testing performed at Main Lab DEPARTMENT OF PATHOLOGY, [address] [place] [address] John Andrews M.D. Director [facility] # [id number] 52 Because ethnic data is not always readily [...] 15-29 5 Kidney failure <15 (or dialysis) 53 Reference Range and Interpretation: TnI (ng/mL) Interpretation Less Than 0.03 ng/mL Not supportive of diagnosis of GA 0.03 - 0.50 ng/mL Indeterminate: suggest serial studies if clinically indicated. Greater than 0.5 ng/mL Consistent with diagnosis of GA 54 SEE RESULT BELOW Name: ALYSIA ADEN : [address]: Claudio Gauthier MD Acct: [id number] Unit: [id number] AGE: 40 Location: [facility] Re11/04/15 SEX: F Status: REG REF SPEC: [id number] YOANA: 11/04/15-[address] [facility] [address]: Claudio Gauthier MD REQ: [id number] RECD: 11/04/15-1252 STATUS: COMP _ SOURCE: URINE SPDESC: ORDERED: Urine Culture Procedure Result Reported Site Urine Culture Final 11/06/15- 900 ML Organism 1 KLEBSIELLA PNEUMONIAE Danube Count 10-25,000 (Moderate) CFU/ML Organism 2 NORMAL ALEXANDER [place] Count 10-25,000 (Moderate) CFU/ML 1. KLEBSIELLA PNEUMONIAE [...] antibiotic reporting. * ML - MAIN LAB ([facility]) . END OF REPORT * ML=Testing performed at Main Lab DEPARTMENT OF PATHOLOGY, [address], [place], [place] [address] John Andrews M.D. Director [facility] # [id number] 55 Because ethnic data is not always readily [...] 15-29 5 Kidney failure <15 (or dialysis) 56 <5.0 Negative 5.0 - 25.0 Indeterminate (Repeat testing recommended after 72 hours) >25.0 Positive Perimenopausal women can display HCG levels of up to 20 mIU/mL 57 Acute inflammation: >10.00 58 Reference Range and Interpretation: TnI (ng/mL) Interpretation Less Than 0.03 ng/mL Not supportive of diagnosis of GA 0.03 - 0.50 ng/mL Indeterminate: suggest serial studies if clinically indicated. Greater than 0.5 ng/mL Consistent with diagnosis of GA 59 Because ethnic data is not always readily [...] 15-29 5 Kidney failure <15 (or dialysis) 60 >100 to <200 pg/mL: likely compensated congestive heart failure (CHF) 200 to 400 pg/mL: likely moderate CHF >400 pg/mL: likely moderate to severe CHF 61 [place] Severe Sepsis and Septic Shock Management Bundle Measure requires all lactic acids initially measuring >2.0mmol/L be repeated. 62 Desirable <150 Borderline high 150-199 High 200-499 Very High >500 63 Desirable <200 Borderline high 200-239 High >239 64 Low <40 Desirable: 40-60 High: >60 65 Desirable: <100 mg/dL Near Optimal: 100-129 mg/dL Borderline High: 130-159 mg/dL High: 160-189 mg/dL Very High: >189 mg/dL 66 Therapeutic target for the treatment of diabetes Mellitus patients is <7% HBA1C, and in selective patients <6.0%.Please refer to [employer] Diabetic care guidelines for further information. 67 Because ethnic data is not always readily [...] dialysis) Procedures Date Code Description Status 01/16/2018 81185 Nebulizer Treatment Completed 07/31/2017 27601 Nebulizer Treatment Completed 09/20/2016 60608 Spirometry Completed 06/23/2016 34889 EKG, at Least 12 Leads w/Interpretation and Report Completed 11/04/2015 99982 EKG, at Least 12 Leads w/Interpretation and Report Completed Encounters Type Date Location Provider Dx Diagnosis Office Visit 04/15/2018 Main Office Jaiden Garcia44.1 Chronic obstructive 2:45p pulmonary disease w (acute) exacerbation F17.210 Nicotine dependence, cigarettes, uncomplicated Office Visit 04/03/2018 3:15p Main Office Claudio Hwang44.1 Chronic obstructive MD Disha pulmonary disease w (acute) exacerbation Office Visit 03/27/2018 9:30a Main Office Claudio F17.210 Nicotine MD Disha dependence, cigarettes, uncomplicated J44.1 Chronic obstructive pulmonary disease [...] Office Marah Lockett S93.601A Unspecified sprain Storm, BOX GLUER-C of right foot, initial encounter Office Visit 07/31/2017 10:30a Main Office Denys Dalal J44.1 Chronic III, BOX GLUER-C obstructive pulmonary disease w (acute) exacerbation Office [...] Office Visit 11/30/2016 11:00a Main Office Claudio Gauthier, J18.9 Pneumonia, unspecified organism F17.210 Nicotine dependence, [...] Main Office Claudio Gauthier H66.91 Otitis media, unspecified, right ear J44.9 Chronic obstructive pulmonary disease, unspecified M54.5 Low back pain Office Visit 05/05/2016 Main Office Mally Jarrett, J01.90 Acute sinusitis , 4:30p BOX GLUER-C unspecified Office Visit 03/22/2016 Main Office Claudio [...] 10:15a Main Office Claudio Gauthier, I67.1 Cerebral aneurysm, nonruptured Office Visit 10/07/2015 9:45a Main [...] Office Claudio Gauthier S29.001A Unsp injury of MD ferreiral/timmy of front wall of thorax, init J18.9 Pneumonia, unspecified organism K21.9 Gastro-esophageal reflux disease without esophagitis Office Visit 07/28/2015 10:00a Main Office Claudio Gauthier, J01.90 Acute sinusitis, unspecified Office Visit 07/19/2015 8:00a Main Office Claudio Gauthier, Z00.8 Encounter for MD other general examination I10 Essential (primary) hypertension Z72.0 Tobacco use M54.5 Low back pain Office Visit 05/17/2015 9:00a Main Office Claudio Gauthier, F17.213 Nicotine MD dependence, cigarettes, with withdrawal M54.5 Low back pain I60.9 Nontraumatic subarachnoid hemorrhage, unspecified Office Visit 04/14/2015 9:15a Main Office Claudio Gauthier MD Z72.0 Tobacco use M54.5 Low back pain I10 Essential (primary) hypertension I60.9 Nontraumatic subarachnoid hemorrhage, unspecified Z23 Encounter for immunization Plan of Treatment Future Appointment(s):05/17/2018 10:30 am - Claudio Gauthier MD at Main Office
--- NOTE | 2018-04-29 21:55 | ED ---
Complex/Multi-Sys Presentation - HPI Summary HPI Summary: This patient is a 42 year old F presenting to ED with a chief complaint of being very disoriented since 0430 today after her boyfriend came home from work. The patients mother called her boyfriend and told him to come home. The patient rates the pain 0/10 in severity. Symptoms aggravated by nothing. Symptoms alleviated by nothing. Mother reports urinary frequency. Patient denies difficulty breathing. Patient is on 4L O2 at home. Her mother reports she was found off of her O2 for some unknown reason. - History Of Current Complaint Chief Complaint: EDGeneral Time Seen by Provider: 04/29/18 21:36 Hx Obtained From: Patient Onset/Duration: Sudden Onset, Lasting Hours Severity Currently: None Aggravating Factor(s): nothing Alleviating Factor(s): nothing - Allergies/Home Medications Allergies/Adverse Reactions: Allergies Allergy/AdvReac Type Severity Reaction Status Date / Time amoxicillin Allergy Severe Anaphylatic Verified 04/29/18 20:56 Shock clavulanic acid Allergy Severe Anaphylatic Verified 04/29/18 20:56 [From Augmentin] Shock strawberry Allergy Severe Swelling Verified 04/29/18 20:56 Of Face,Lips,& Throat phenytoin [From Dilantin] Allergy Shortness Verified 04/29/18 20:56 of Breath sweet potato Allergy Swelling Verified 04/29/18 20:56 Of Face,Lips,& Throat PMH/Surg Hx/FS Hx/Imm Hx Endocrine/Hematology History: Reports: Hx Anticoagulant Therapy - ASA daily, Hx Thyroid Disease - HYPO Denies: Hx Diabetes Cardiovascular History: Reports: Hx Aneurysm - brain , Hx Angina, Hx Coronary Artery Disease, Hx Deep Vein Thrombosis - states in right arm 2017, Hx Hypercholesterolemia, Hx Hypertension, Hx Valvular Heart Disease - heart murmur , Other Cardiovascular Problems/Disorders - DVT, MURMUR, H PYLORI Denies: Hx Angioplasty, Hx Atrial Fibrillation, Hx Congestive Heart Failure, Hx Myocardial Infarction, Hx Pacemaker/ICD Respiratory History: Reports: Hx Asthma, Hx Chronic Obstructive Pulmonary Disease (COPD), Hx Seasonal Allergies, Hx Sleep Apnea - does not use machine, Other Respiratory Problems/Disorders GI History: Reports: Hx Gall Bladder Disease - gall bladder removed, Hx Gastroesophageal Reflux Disease, Other GI Disorders - H pylori History: Reports: Hx Kidney Stones - states she thinks she has kidney stones Denies: Hx Renal Disease Comment Only: Other Problems/Disorders - states she thinks she has kidney stones Musculoskeletal History: Reports: Hx Back Problems - slipped disks Denies: Hx Arthritis, Hx Osteoporosis Sensory History: Reports: Hx Contacts or Glasses Denies: Hx Cataracts, Hx Hearing Aid Opthamlomology History: Reports: Hx Contacts or Glasses Denies: Hx Cataracts Neurological History: Reports: Hx Headaches, Hx Migraine, Hx Transient Ischemic Attacks (TIA) - Unconfirmed by patient, Other Neuro Impairments/Disorders - Cerebral Aneurysm Denies: Hx Dementia, Hx Seizures Psychiatric History: Reports: Hx Anxiety, Hx Depression, Hx Panic Disorder - SEVERE ANXIETY, Hx Bipolar Disorder Denies: Hx Substance Abuse - Surgical History Surgery Procedure, Year, and Place: [id number] REMOVED-TUBAL LIGATION-APPENDIX 08/15/14. BRAIN ANEURYSM-STENTS/COIL [facility] [place] 06/01/16 -1.5 ONLY. BRONCHOSCOPY WITH TRANSBRONCHIAL BIOPSY 07/26/16 Hx Anesthesia Reactions: Yes - takes a little bit longer for patient to wake up - Immunization History Date of Tetanus Vaccine: 2013 Date of Influenza Vaccine: 2013 Immunizations Up to Date: Yes Infectious Disease History: No Infectious Disease History: Denies: Hx Hepatitis, Hx Human Immunodeficiency Virus (HIV), Traveled Outside the [place] in Last 30 Days - Family History Known Family History: Positive: Cardiac Disease, Other - brain aneurysm Family History: Positive fhx of CAD - Social History Alcohol Use: None Hx Substance Use: No Substance Use Type: Reports: None Hx Tobacco Use: Yes Smoking Status (MU): Heavy Every Day Tobacco Smoker Type: Cigarettes Amount Used/How Often: 8 cigarettes a day recently---but usually 2ppd for 30 years Length of Time of Smoking/Using Tobacco: 20+ years Have You Smoked in the Last Year: Yes Review of Systems Positive: Other - patient denies difficulty breathing Positive: frequency - per the mother Neurological: Other - "very disoriented" per the mother All Other Systems Reviewed And Are Negative: Yes Physical Exam - Summary Physical Exam Summary: VITAL SIGNS: Reviewed. GENERAL: Patient is a well-developed and nourished FEMALE who is lying comfortable in the stretcher. The patient is a little diaphoretic but seems comfortable. HEAD AND FACE: No signs of trauma. No ecchymosis, hematomas or skull depressions. No sinus tenderness. EYES: PERRLA, EOMI x 2, No injected conjunctiva, no nystagmus. EARS: Hearing grossly intact. Ear canals and tympanic membranes are within normal limits. MOUTH: Oropharynx within normal limits. NECK: Supple, trachea is midline, no adenopathy, no JVD, no carotid bruit, no c- spine tenderness, neck with full ROM. CHEST: Symmetric, no tenderness at palpation LUNGS: Clear to auscultation bilaterally. No wheezing or crackles. Decreased breath sounds bilaterally. CVS: Regular rate and rhythm, S1 and S2 present, no murmurs or gallops appreciated. ABDOMEN: Soft, non-tender. No signs of distention. No rebound no guarding, and no masses palpated. Bowel sounds are normal. EXTREMITIES: FROM in all major joints, no edema, no cyanosis or clubbing. NEURO: Alert and oriented x 3. No acute neurological deficits. Speech is normal and follows commands. SKIN: Dry and warm. Ecchymosis on lower abdomen. Triage Information Reviewed: Yes Vital Signs On Initial Exam: Initial Vitals Temp Pulse Resp BP Pulse Ox 98.1 F 94 22 175/99 92 04/29/18 20:52 04/29/18 20:52 04/29/18 20:52 04/29/18 20:52 04/29/18 20:52 Vital Signs Reviewed: Yes Diagnostics - Vital Signs Vital Signs Temp Pulse Resp BP Pulse Ox 04/29/18 20:52 98.1 F 94 22 175/99 92 - Laboratory Result Diagrams: 04/29/18 22:11 04/29/18 22:11 Lab Statement: Any lab studies that have been ordered have been reviewed, and results considered in the medical decision making process. - Radiology CXR Radiology Interpretation Completed By: ED Physician Summary of Radiographic Findings: bilateral interstitial infiltrate that has slightly improved when compared to CXR from 04-18-18. Pending official report. - EKG 2143 Cardiac Rate: NL - 79 BPM EKG Rhythm: Sinus Rhythm Summary of EKG Findings: Normal axis. Normal interval. No ischemic changes. Re-Evaluation - Re-Evaluation First Eval Re-Evaluation Time: 23:32 Change: Improved Comment: Pts O2 saturation is 91-92 percent on 4L Complex Multi-Symp Course/Dx Assessment/Plan: This patient is a 42 year old F presenting to ED with a chief complaint of being very disoriented since 429 today after her boyfriend came home from work. CXR bilateral interstitial infiltrate that has slightly improved when compared to CXR from 04-18-18. Pending official report. Pts O2 saturation is 91-92 percent on 4L. She has a bipap at home that she uses. I reviewed the lab results with her on the elevate TSH. Pt seems comfortable at this time. Her bloodwork in more or less at her baseline. She has a fountain helper appiontment on Sunday. Pt advised to f/u pcp to increased thyroxin her and her boyfriend understand. Pt was not confused in the ED - Diagnoses Provider Diagnoses: Chronic respiratory failure, Confusion Discharge - Sign-Out/Discharge Documenting (check all that apply): Patient Departure - Discharge Plan Condition: Stable Disposition: HOME Patient Education Materials: Acute Delirium (ED), Chronic Respiratory Failure ( DC) Referrals: Claudio Gauthier MD [Primary Care Provider] - 2 Days Additional Instructions: Keep your appointment with you fountain helper this week. RETURN TO THE EMERGENCY DEPARTMENT FOR CHANGING OR WORSENING SYMPTOMS - Attestation Statements Document Initiated by Scribe: Yes Documenting Scribe: Ovidio Palmer Provider For Whom Scribe is Documenting (Include Credential): Daiana Perez MD Scribe Attestation: I, Ovidio Palmer, scribed for Daiana Perez MD on 04/29/18 at 2330.
[2018-04-29 22:24] LABS: Hematocrit 41 % (35-47); Hemoglobin 13.5 g/dl (12.0-16.0); Mean Corpuscular HGB Conc 33 g/dl (31-36); Mean Corpuscular Hemoglobin 28 pg (27-31); Mean Corpuscular Volume 85 fL (80-97); Mean Platelet Volume 9.1 fL (7.4-10.4); Platelet Count 118 10^3/ul (150-450); Red Blood Count 4.78 10^6/ul (4.00-5.40); Red Cell Distribution Width 17 % (10.5-15); White Blood Count 7.6 10^3/ul (3.5-10.8)
[2018-04-29 22:33] LABS: INR 0.9 (0.77-1.02)
[2018-04-29 22:45] LABS: EGFR Non-African American 74.7 (>60)
[2018-04-29 23:01] LABS: ABS Basophils 0.1 10^3/ul (0-0.2); ABS Eosinophils 0 10^3/ul (0-0.6); ABS Lymphocytes 0.8 10^3/ul (1.0-4.8); ABS Monocytes 0.8 10^3/ul (0-0.8); ABS Neutrophils 5.9 10^3/ul (1.5-7.7); ABS Nucleated RBC 0 10^3/ul; Eosinophil % 0.2 % (0-6); Lymphocyte % 10.6 % (25-47); Nucleated Red Blood Cells % 0
[2018-04-29 23:35] VITALS: BP 130/82
== END 2018-04-29 23:34 | disposition home or self-care (01) ==
LOC: ED 20:51
DX: J96.10 Chronic respiratory failure, unspecified whether with hypoxia or hypercapnia (principal); R41.0 Disorientation, unspecified; F17.210 Nicotine dependence, cigarettes, uncomplicated; Z79.01 Long term (current) use of anticoagulants; I25.10 Atherosclerotic heart disease of native coronary artery without angina pectoris
CPT/HCPCS: 36415; 71045; 80053; 82803; 84443; 85025; 85610; 85730; 93005; 99282

== ENCOUNTER → 2018-08-02 18:28 | Emergency (ER) | payer OTHER ==
--- OUTSIDE RECORDS SUMMARY | 2018-08-02 19:30 | XMS REPORT | Continuity of Care Document ---
:1975 External Reference #:[id number] Author Name Michelet Pollock DO, MPH Address [address] [place] [address], [address] [place] [address] Care Team Providers Name Role Phone Claudio Gauthier MD Care Team Information Horser Up Unavailable Claudio Gauthier MD Primary Care Physician Unavailable Payers Type Date Identification Numbers Payment Provider Subscriber Policy Number: [id number] [facility] Alysia Aden PayID: [id number] [address] [address] [place] [address] Advance Directives Description No Information Available Problems Description No Information Family History Date Family Member(s) Problem(s) Comments Father Age is Unknown Mother 66 Children 3 Siblings 3 Social History Type Date Description Comments Sex Unknown Marital Status Significant Other Lives With Children Lives With Boyfriend Occupation Unemployed Work Status Not Currently Working ETOH Use Denies alcohol use Tobacco Use Start: Unknown Patient is a current smoker, smokes every day Recreational Drug Use Denies Drug Use Smoking Status Reviewed: 07/19/18 Patient is a current smoker, smokes every day Allergies, Adverse Reactions, Alerts Date Description Reaction Status Severity Comments 07/05/2018 Augmentin Active 07/05/2018 Clavulanic Acid Active 07/05/2018 Strawberries Active 07/05/2018 Dilantin Active 07/05/2018 Zucchini Extract Active 07/05/2018 Sweet Potato Allergenic Extract Active Medications Medication Date Status Form Strength Qnty SIG Indications Ordering Provider Gabapentin 07/05/ Active Capsules 100mg 90cap take 1 2018 s capsules Michelet, by mouth , MPH every 8 hours ud. chronic pain. Risperdal / Active Tablets 3mg 1 by mouth Unknown 0000 twice daily Levothyroxine / Active Tablets 137mcg 1 by mouth Unknown Sodium 0000 every day Aspirin / Active Chewtabs 81mg si by Unknown 0000 mouth every day Vitamin D3 / Active Capsules 1000Unit 1 by mouth Unknown 0000 daily Amlodipine / Active Tablets 5mg 1 by mouth Unknown Besylate 0000 daily Lamotrigine / Active Tablets 100mg 2 by mouth Unknown 0000 twice daily Xanax / Active Tablets 1mg si by Unknown 0000 mouth every 8 hours as directed Hydrocodone / Active Tablets 10-325mg 1 by mouth Unknown Bitartrate/Acet 0000 every 6 aminophen hours Baclofen / Active Tablets 10mg take one Unknown 0000 by mouth twice a day as directed chronic pain. Singulair / Active Tablets 10mg 1 by mouth Unknown 0000 every day Omeprazole / Active Capsules DR 40mg 1 by mouth Unknown 0000 every day Ventolin HFA / Active Aerosol 108(90Base 1-2 puffs Unknown 0000 ) mcg/Act as needed every 4-6 hours for shortness for breath Albuterol / Active Nebulizer (2.5mg/3ML sig: as Unknown Sulfate 0000 ) 0.083% directed Lamictal / Hx Tablets 150mg 1 by mouth Unknown 0000 - daily 2018 Immunizations Description No Information Available Vital Signs Date Vital Result Comment 07/19/2018 9:47am BP Systolic 140 mmHg BP Diastolic 86 mmHg Heart Rate 102 /min Respiratory Rate 20 /min Height 66 inches 5'6" Weight 242.00 lb O2 % BldC Oximetry 92 % Pain Level 7 Pain at this time. Pain Level With Medicine 6 on average with meds Pain Level Without Medicine 10 03/27 without meds BMI (Body Mass Index) 39.1 kg/m2 07/05/2018 9:26am BP Systolic 136 mmHg BP Diastolic 86 mmHg Heart Rate 104 /min Respiratory Rate 20 /min Height 66 inches 5'6" Weight 240.00 lb O2 % BldC Oximetry 85 % Oxygen 4L NC Pain Level 7 Pain at this time. 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 Symptoms and complaints discussed and reviewed today. No significant changes in physical findings. Continue current medical pain management.M54.5 Low back painComments:Chronic. Symptoms and complaints discussed and reviewed today.No changes in physical findings. Patient is stable and comfortable when current medical therapy is rendered.Z79.891 termination clerk ( current) use of opiate analgesicNew Labs:Urine Drug Screen, Ordered: Comments:Urine drug screen sample taken today to monitor opiate use and to monitor use of illicit substances.Will discuss results at next appointment.The following tests were ordered:6 AM, AMPH, LÓPEZ, SHELLIE, BUP, CARIS, COCM, COT, ETG , FENT, MCSHSG, OPI, OXY, PCP, TAPEN, XTSY, ZOLP. ~I_A urine drug test ( UDT) was ordered for this patient and collected on site today. Creatinine has been ordered as well for specimen validity, not for kidney function. Preliminary UDT results are not final and should not be used to determine patient care or plan of treatment. Initially a qualitative immunoassay screen will be done. Any inconsistent or positive findings will be further tested with a more comprehensive quantitative confirmation LCMS study. It is part of the treatment process of prescribing controlled substances and is considered standard of care.~i_AllComments:All above symptoms and complaints discussed as well as diagnoses reviewed.Continue trial of opioid pain management - note changes below; injection therapy, osteopathic manipulation (OMT), PT / modalities, and consults as needed to manage chronic pain.Side effects discussed ; anticipatory guidance given. Patient clearly understands and agrees with all medical treatments and suggestions. 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 Activity as toleratedContinue with PCP
--- OUTSIDE RECORDS SUMMARY | 2018-08-02 19:30 | XMS REPORT | Continuity of Care Document ---
:1975 External Reference #:[id number] Author Name Claudio Gauthier MD Address [address] [place] [address] Care Team Providers Name Role Phone Claudio Gauthier MD Care Team Information Assistant Manager Quality Management Unavailable Payers Type Date Identification Numbers Payment Provider Subscriber Effective: Policy Number: [id number] Michael Aden 2015 [facility] PayID: [id number] [place] [address] Advance Directives Description No Information Available Problems Description No Information Family History Date Family Member(s) Problem(s) Comments General Cancer, Colon General Cancer, Breast General Diabetes General Heart Disease General Cerebral Aneurysms Mother Cancer, Colon Social History Type Date Description Comments Sex Unknown Marital Status Andrew Casey Lives With Male Partner 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 Working [employer] Tobacco Use Start: Unknown Heavy tobacco smoker [...] Form Strength Qnty SIG Indications Ordering Provider Sulfamethoxazole 07/12 Active Tablets 800-160mg 14tab 1 by mouth L03.213 Claudio /Trimethoprim DS s twice a day Disha goodman MD infection Portable Oxygen 07/12 Active J44.9 Claudio Concentrator MD Disha Amlodipine 06/07 Active Tablets 5mg 30tab 1 by mouth Claudio Besylate s every day MD Disha Nebulizer 04/03 Active Device 1unit use to J44.1 s deliver Disha kay MD medications for COPD Spiriva Respimat 03/23 Active Aerosol 2.5mcg/Ac 4gm 2 Claudio t inhalations Disha once per , every day for copd Omeprazole 08/05 Active Capsules 40mg 30cap take one DR s capsule by Hemigueldercarolynn mouth every , MD morning Baclofen 07/19 Active Tablets 20mg 120ta Take One bs Tablet By Heetdercarolynn Mouth Four , MD Times A Day as Needed Protonix 05/[address] 40mg 30tab take one s tablet by Heetdercarolynn mouth every , MD day Pulse Oxygen 03/07 Active For F17.210 Cluadio assessing Disha COPD status. , Advair Diskus 09/20 Active Aerosol 250-50mcg 60uni [...] Nebulizer (2.5mg/3M 75ml 1 treatment J44.9 Perla L) 0.083% (1 vial) P. four times a Blegen, day as M.D. needed for wheeze Vitamin D3 03/29 Active Capsules 2000Unit 30cap Take One Claudio s Capsule By [place] Mouth Every , MD Day Hydrocodone-Acet 03/02 Active Tablets 10-325mg 90tab three times Claudio aminophen /2015 s a day as Heetderks needed , [...] day Acetazolamide Active Tablets 250mg Unknown /0000 Prednisone 03/23 Hx Tablets 20mg 20tab take 3 tabs J44.1 Perla s by mouth x 3 P. - days, then 2 Blegen, 05/13 tabs by M.D. mouth x 3 days, then 1 tab by mouth x 3 days then 1/2 tab by mouth x 4 days Doxycycline 03/23 Hx Tablets 100mg 20tab 1 by mouth Perla Monohydrate s twice a day P. - x 10 Days Blegen, 05/13 For copd M.D. exacerbation Doxycycline 07/31 Hx Capsules 100mg 20cap 1 take by J44.1 Denys Hyclate s mouth [place] - capsule 2 III, 07/31 times per [employer] day for 10 days for infection Prednisone 07/31 Hx Tablets 20mg 20tab take 3 tabs J44.1 Denys s by mouth x 3 [place] - days, then 2 III, 01/16 tabs by [employer] mouth x 3 days, then 1 tab by mouth x 3 days then 1/2 tab by mouth x 4 days Doxycycline 07/31 Hx Capsules 100mg 20cap 1 take by J44.1 Denys Monohydrate /2017 s mouth [place] - capsule 2 III, 01/16 times per [employer] day for 10 days for infection Dulera 07/13 Hx Aerosol 200-5mcg/ 13uni inhale two Claudio Act ts puffs by [place] - mouth twice , 07/13 a day directed Symbicort 07/13 Hx Aerosol 160-4.5mc 12gm inhale 2 Claudio g/Act puffs by [place] - mouth 2 , 01/16 times per day for chronic obstructive lung disease Cormax Scalp 07/06 Hx Solution 0.05% 100ml 1 apply to Claudio affected [place] - area every , 05/13 day showering Prednisone 04/09 Hx Tablets 20mg 20tab take 3 tabs Jaiden44.1 Claudio s by mouth x 3 He[place]ks [...] 03/07 Hx Patches 21mg/24HR 28uni 1 patch Claudio 24HR ts daily Heetarmida - , 03/27 Metoprolol 03/01 Hx Tablets ER 50mg 30tab Take One Claudio Succinate ER 24HR s Tablet By [place] - Mouth Every , Protonix 02/[address] 40mg 30tab Take One Claudio s Tablet By [place] - Mouth Every , Nicotine Step 2 12/01 Hx Patches 14mg/24HR 30uni 1 daily Claudio 24HR ts every [place] - morning , 03/07 Baclofen 11/30 Hx Tablets 20mg S29.012A Disha Mauro MD 11/30 Baclofen 11/30 Hx Tablets 10mg 120ta take one to S29.012A bs two tablets Disha - four times a , 07/19 day as needed Nicotrol 10/23 Hx Inhaler 10mg 336un inhale 1 Z72.0 its cartridge Disha Mauro inhaled , 03/27 orally repeatedly like a cigarette 16 times per day as needed for smoking cessation Lansoprazole 09/21 Hx Capsules 30mg 30cap 1 tab by K21.[address] workman mouth daily Disha Mauro MD 03/27 Pantoprazole 09/17 Hx Solution 40mg Claudio Rec Disha Mauro MD 09/17 Dexilant 09/17 Hx Capsules 30mg 30cap Take [address] workman capsule by Disha - mouth daily , 09/21 for 4 weeks for gastroesopha geal refluxdiseas e Clindamycin HCL 09/15 Hx Capsules 300mg 30cap take 1 H60.11 s capsule by Disha Mauro mouth every , 10/23 8 hours 10 days Protonix 09/[address] 40mg 30tab 1 by mouth Claudio s every day Disha Mauro MD 09/20 Doxycycline 06/07 Hx Tablets 100mg 20tab 1 tab by JDeborah Snyder Hyclate s mouth twice Disha - a day MD 06/23 Crumpton 06/07 Hx Tablets 5-325mg 90tab 1 tab by Claudio s mouth three Disha - times a day , 06/07 as needed Tesbinh Ochoa 06/07 Hx Capsules 100mg 60cap take 1 J44.9 Claudio s capsule by Disha - mouth 3 , 10/23 times per day as needed for cough Clindamycin HCL 05/17 Hx Capsules 300mg 21cap take 1 H66.91 Claudio s capsule by Heetlupisks - mouth every , 06/07 8 hours for 7 days Morphine Sulfate 05/17 Hx Tablets 15mg 60tab 1 tab by Claudio s mouth two Heetderks - times a day , 06/07 as needed /2015 Azithromycin 05/05 Hx Tablets 250mg 6tabs take 2 J01.90 Mally tablets Luiza, - today then 1 [employer] 06/07 tablet daily for the next 4 days Benzonatate 05/05 Hx Capsules 100mg 45cap take 1 J01.90 Mally s capsules by Luiza, - mouth three [employer] 03/27 times a day /2017 as needed for coughing Zyrtec Allergy 04/14 Hx Tablets 10mg 30tab 1 by mouth Claudio s every day Heetarmida - , 06/23 Magnesium Oxide 03/29 Hx [...] Hx Tablets 5-325mg 30tab 1 tab by Ivett Johnstonrit aminophen s mouth three [place]etderks - times a day , 10/19 as needed Ranitidine 150 08/22 Hx Tablets 150mg 60tab 1 tab by Claudio Maximum Strength s mouth twice Heet[place]ks - a day , 09/15 Azithromycin 07/28 Hx Tablets 250mg 6tabs take 2 J01.90 Claudio tablets by [place] - mouth one , 08/22 time then take one daily for 4 days Proair HFA 07/28 Hx Aerosol 108(90Bas 2unit 1-2 puffs e) s every 6 Heetderks - mcg/Act hours as , 03/27 needed /2017 Advair HFA 07/28 Hx Aerosol 115-21mcg 24uni inhale one /Act ts puff by He[place]ks - mouth twice , 09/20 a day /2016 Flexeril 07/19 Hx Tablets 10mg 60tab 1 tab by Ivett Johnstonrit s mouth three [place] - times a day , 07/19 Skelaxin 07/19 Hx Tablets 800mg 60tab 1 tab by Ivett Claudio s mouth three [place] - times a day , 10/06 Hydrocodone-Acet 07/19 Hx Tablets 5-325mg 30tab 1 by mouth Ivett Johnstonrit aminophen s q4 - 6 hours [place] - as needed , 10/19 Tolnaftate 07/19 Hx Cream 1% 60uni 1 apply to ts affected [place]ks - area twice a , 03/15 day for weeks Fluoxetine HCL 04/15 Hx Capsules 40mg 30cap 1 by mouth Claudio s every day Heetarmida - MD 03/22 Magnesium 04/15 Hx Capsules 400mg 30cap 1 tab by Claudio s mouth daily Heet[place]ks - , 03/29 Trazodone HCL 04/15 Hx Tablets 100mg 2 tab by Claudio mouth every Disha - night MD 10/06 Cetirizine HCL 04/15 Hx Tablets 10mg 30tab 1 by mouth Claudio s every day Disha Mauro MD 07/19 Amitriptyline 04/15 Hx Tablets 25mg 30tab as needed Claudio HCL s Disha Mauro MD 07/19 Topiramate 04/15 Hx Tablets 100mg 60tab once a day Claudio s Disha Mauro MD 01/26 Clopidogrel 04/15 Hx Tablets 75mg 30tab 1 by mouth Claudio Bisulfate s every day Disha Mauro MD 07/19 Quetiapine 04/15 Hx Tablets 400mg 30tab Claudio Fumarate s Disha Mauro MD 03/22 Omeprazole 04/15 Hx Capsules 40mg 30cap Take One Claudio s Capsule By Disha - Mouth Every MD 09/17 Atenolol 04/15 [...] mouth Claudio inophen / s every 4 Wagnerks - hours MD sedrick 03/15 severe pain Prednisone 00/00 Hx Tablets 20mg Take Two Unknown /0000 Tablets By - Mouth Every Dose Due 11 27 16 Prednisone 00/00 Hx Tablets 10mg Unknown /0000 - 09/20 /2017 Immunizations CPT Code Status Date Vaccine Lot # [id number] Given 03/27/2018 Influenza Virus Vaccine, Quadrivalent, 3 Yr > [id number] Quad, Preserv Free 73745 Given 03/07/2017 Influenza Virus Vaccine, Quadrivalent, 3 Yr > [id number] Quad, Preserv Free 45282 Given 03/15/2016 Influenza Virus Vaccine, Quadrivalent, 3 Yr > [id number] Quad, Preserv Free 36528 Given 04/14/2015 Influenza Virus Vaccine, Quadrivalent, 3 Yr > [id number] Quad, Preserv Free 57331 Given 06/18/2009 Tdap (Adacel) Vital Signs Date Vital Result Comment 07/12/2018 9:34am Weight 255.00 lb Weight 115.668 kg BP Systolic 138 mmHg BP Diastolic 84 mmHg Heart Rate 98 /min Body Temperature 97.0 F Respiratory Rate 20 /min 06/07/2018 4:35pm BP Systolic 160 mmHg BP Diastolic 94 mmHg 05/13/2018 11:44am BP Systolic 143 mmHg BP Diastolic 91 mmHg Heart Rate 88 /min Body Temperature 97.9 F Respiratory Rate 16 /min O2 % BldC Oximetry 94 % 05/02/2018 4:43pm Weight 240.00 lb Weight 108.864 kg BP Systolic 120 mmHg BP Diastolic 84 mmHg Heart Rate 88 /min Body Temperature 97.3 F Respiratory Rate 24 /min O2 % BldC Oximetry 88 % 4lt 04/15/2018 2:39pm Weight 240.00 lb Weight 108.864 [...] Date Facility Test Result H/L Range Note Order 05/02/2018 In Office Nebulizer <pending> Treatment Laboratory test 05/02/2018 [facility] Troponin-I 0.03 ng/mL <0.04 finding [phone] (TnI) Alcohol < 10 mg/dL N <10 Acetaminophen < 15 g/mL 1 Salicylate < 2.50 mg/dL <30 TSH (Thyroid Stimulating Horm) 19.81 mcIU/mL High 0.34-5.60 Free T4 0.73 ng/dL N 0.61-1.12 Lamotrigine (Lamictal) <0.2 g/mL Abnormal 2.5 - 15.0 2 Comp Metabolic Panel 05/02/2018 [facility] Sodium 141 mmol/L N 135-145 [phone] Chloride 105 mmol/L N 101-111 Co2 Carbon Dioxide 29 mmol/L N 22-32 Glucose 146 mg/dL High 70-100 Blood Urea Nitrogen 24 mg/dL N 6-24 Creatinine 0.96 mg/dL High 0.51-0.95 BUN/Creatinine Ratio 25.0 High 8-20 Calcium 9.6 mg/dL N 8.6-10.3 Total Protein 7.3 g/dL N 6.4-8.9 Albumin 4.5 g/dL N 3.2-5.2 Globulin 2.8 g/dL N 2-4 Albumin/Globulin Ratio 1.6 N 1-3 Total Bilirubin 0.30 mg/dL N 0.2-1.0 Alkaline Phosphatase 79 U/L N 34-104 Alt 46 U/L N 7-52 Egfr Non- 63.1 >60 Egfr 76.4 >60 3 Potassium TNP mmol/L 3.5-5.0 4 Anion Gap 7 mmol/L N 2-11 Ast TNP U/L 13-39 5 Laboratory test 05/02/2018 [facility] Ast Redraw TNP U/L 13-39 6 finding [phone] Potassium Redraw TNP mmol/L 3.5-5.0 7 Ammonia TNP mcmol/L 16-53 8 Laboratory test 05/02/2018 [facility] D Dimer < 200 N Less Than 9 finding [phone] Quantitative ng/mL 230 Ammonia TNP mcmol/L 16-53 10 Urine Drug 05/02/2018 [facility] Amphetamine Ur None Detected None Detect SCR ED & [phone] Screen Pain Clinic Barbiturates Urine Screen None Detected None Detect Benzodiazepine Urine Screen Presumptive Posi <SEE NOTE> Abnormal None Detect 11 Urine Cannabinoids Screen None Detected None Detect Urine Cocaine Screen None Detected None Detect Urine Opiates Screen Presumptive Posi <SEE NOTE> Abnormal None Detect 12 Urine Phencyclidine Screen None Detected None Detect 13 Arterial Blood Gas 05/02/2018 [facility] PH Arterial 7.38 N 7.35-7.45 [phone] Pco2 Arterial 48 mmHg High 35-45 Po2 Arterial 63 mmHg Low 80-100 O2 Saturation Arterial 93.0 % Low 95-98 Base Excess Arterial 2.5 High -2.0-2.0 14 Hco3 Arterial 26.6 mmol/L N 19-31 Laboratory test 05/02/2018 [facility] Lactic Acid 1.3 mmol/L N 0.5-2.0 15 finding [phone] CBC Auto Diff 05/02/2018 [facility] White Blood 7.3 10^3/uL N 3.5-10.8 [phone] Count Red Blood Count 4.65 10^6/uL N 4.00-5.40 Hemoglobin 13.2 g/dL N 12.0-16.0 Hematocrit 40 % N 35-47 Mean Corpuscular Volume 86 fL N 80-97 Mean Corpuscular Hemoglobin 29 pg N 27-31 Mean Corpuscular HGB Conc 33 g/dL N 31-36 Red Cell Distribution Width 17 % High 10.5-15 Platelet Count 138 10^3/uL Low 150-450 Mean Platelet Volume 9.5 fL N 7.4-10.4 Abs Neutrophils 5.4 10^3/uL N 1.5-7.7 Abs Lymphocytes 0.9 10^3/uL Low 1.0-4.8 Abs Monocytes 0.9 10^3/uL High 0-0.8 Abs Eosinophils 0 10^3/uL N 0-0.6 Abs Basophils 0.1 10^3/uL N 0-0.2 Abs Nucleated RBC 0 10^3/uL Granulocyte % 73.5 % N 38-83 Lymphocyte % 12.8 % Low 25-47 Monocyte % 12.6 % High 0-7 Eosinophil % 0.4 % N 0-6 Basophil % 0.7 % N 0-2 Nucleated Red Blood Cells % 0 Arterial Blood Gas 04/29/2018 [facility] O2 Device nasal cannula [phone] Fio2 36 PH Arterial 7.40 N 7.35-7.45 Pco2 Arterial 52 mmHg High 35-45 Po2 Arterial 55 mmHg Low 80-100 16 O2 Saturation Arterial 90.6 % Low 95-98 Base Excess Arterial 6.0 High -2.0-2.0 17 Hco3 Arterial 29.4 mmol/L N 19-31 Comp Metabolic Panel 04/29/2018 [facility] Sodium 140 mmol/L N 135-145 [phone] Potassium 3.8 mmol/L N 3.5-5.0 Chloride 100 mmol/L Low 101-111 Co2 Carbon Dioxide 31 mmol/L N 22-32 Anion Gap 9 mmol/L N 2-11 Glucose 193 mg/dL High 70-100 Blood Urea Nitrogen 25 mg/dL High 6-24 Creatinine 0.83 mg/dL N 0.51-0.95 BUN/Creatinine Ratio 30.1 High 8-20 Calcium 10.0 mg/dL N 8.6-10.3 Total Protein 7.0 g/dL N 6.4-8.9 Albumin 4.5 g/dL N 3.2-5.2 Globulin 2.5 g/dL N 2-4 Albumin/Globulin Ratio 1.8 N 1-3 Total Bilirubin 0.50 mg/dL N 0.2-1.0 Alkaline Phosphatase 74 U/L N 34-104 Alt 53 U/L High 7-52 Ast 23 U/L N 13-39 Egfr Non- 74.7 >60 Egfr 90.4 >60 18 Laboratory 04/29/2018 [facility] TSH (Thyroid 18.53 High 0.34-5.60 test finding [phone] Stimulating mcIU/mL Horm) CBC Auto Diff 04/29/2018 [facility] White Blood 7.6 N 3.5-10.8 [phone] Count 10^3/uL Red Blood Count 4.78 10^6/uL N 4.00-5.40 Hemoglobin 13.5 g/dL N 12.0-16.0 Hematocrit 41 % N 35-47 Mean Corpuscular Volume 85 fL N 80-97 Mean Corpuscular Hemoglobin 28 pg N 27-31 Mean Corpuscular HGB Conc 33 g/dL N 31-36 Red Cell Distribution Width 17 % High 10.5-15 Platelet Count 118 10^3/uL Low 150-450 Mean Platelet Volume 9.1 fL N 7.4-10.4 Abs Neutrophils 5.9 10^3/uL N 1.5-7.7 Abs Lymphocytes 0.8 10^3/uL Low 1.0-4.8 Abs Monocytes 0.8 10^3/uL N 0-0.8 Abs Eosinophils 0 10^3/uL N 0-0.6 Abs Basophils 0.1 10^3/uL N 0-0.2 Abs Nucleated RBC 0 10^3/uL Granulocyte % 77.3 % N 38-83 Lymphocyte % 10.6 % Low 25-47 Monocyte % 11.1 % High 0-7 Eosinophil % 0.2 % N 0-6 Basophil % 0.8 % N 0-2 Nucleated Red Blood Cells % 0 Inr/Protime 04/29/2018 [facility] Inr 0.90 N 0.77- 1.02 [phone] Laboratory test 04/29/2018 [facility] Partial 28.8 seconds N 26.0-36.3 finding [phone] Thrombo Time PTT Laboratory test 04/18/2018 [facility] Partial 28.8 seconds N 26.0-36.3 finding [phone] Thrombo Time PTT Blood Urea Nitrogen BUN 21 mg/dL N 6-24 Laboratory test 04/18/2018 [facility] Pathologist ( SEE NOTE) 19 finding [phone] Review Manual 04/18/2018 [facility] Neutrophil % 63 % N 38 -83 Differential [phone] Lymphocytes % 17 % Low 25-47 Monocytes % 12 % High 0-7 Eosinophils % 0 % N 0-6 Basophil % 0 % N 0-2 Variant Lymph % 8 % High 0-6 Abs Neutrophils 6.6 10^3/uL N 1.5-7.7 Abs Lymphocytes 1.8 10^3/uL N 1.0-4.8 Abs Monocytes 1.2 10^3/uL High 0-0.8 Abs Eosinophils 0 10^3/uL N 0-0.6 Abs Basophils 0 10^3/uL N 0-0.2 RBC Morphology Normal Normal Urinalysis Profile 04/18/2018 [facility] Urine Color Yellow [phone] Urine Appearance Cloudy Urine Specific [place] 1.020 N 1.010-1.030 Urine pH 5.0 N 5-9 Urine Urobilinogen Negative Negative Urine Ketones Negative Negative Urine Protein Negative Negative Urine Leukocytes Negative Negative Urine Blood Negative Negative Urine Nitrite Negative Negative Urine Bilirubin Negative Negative Urine Glucose Negative Negative CBC Auto Diff 04/18/2018 [facility] White Blood 10.4 10^3/uL N 3.5-10.8 [phone] Count Red Blood Count 5.75 10^6/uL High 4.00-5.40 Hemoglobin 16.2 g/dL High 12.0-16.0 Hematocrit 49 % High 35-47 Mean Corpuscular Volume 85 fL N 80-97 Mean Corpuscular Hemoglobin 28 pg N 27-31 Mean Corpuscular HGB Conc 33 g/dL N 31-36 Red Cell Distribution Width 16 % High 10.5-15 Platelet Count 136 10^3/uL Low 150-450 Mean Platelet Volume 9.5 um3 N 7.4-10.4 Abs Neutrophils 6.6 10^3/uL N 1.5-7.7 Abs Lymphocytes 1.8 10^3/uL N 1.0-4.8 Abs Monocytes 1.8 10^3/uL High 0-0.8 Abs Eosinophils 0 10^3/uL N 0-0.6 Abs Basophils 0.1 10^3/uL N 0-0.2 Laboratory test 04/18/2018 [facility] Ammonia 38 mcmol/L N 16-53 finding [phone] B-Type Natriuretic Peptide BNP 64 pg/mL 20 Lactic Acid 3.4 mmol/L High 0.5-2.0 21 Thyroxine 7.55 g/mL N 6.09-12.23 Free T4 0.81 ng/dL N 0.61-1.12 Free T3 3.60 pg/mL N 2.5-3.9 Total T3 91 ng/dL N 87-178 Arterial Blood Gas 04/18/2018 [facility] PH Arterial 7.38 N 7.35-7.45 [phone] Pco2 Arterial 41 mmHg N 35-45 Po2 Arterial 63 mmHg Low 80-100 O2 Saturation Arterial 93.3 % Low 95-98 Base Excess Arterial -0.9 N -2.0-2.0 22 Hco3 Arterial 24.0 mmol/L N 19-31 Laboratory test 04/18/2018 [facility] Magnesium 1.9 mg/dL N 1.9-2.7 finding [phone] Creatine Kinase 37 U/L N 10-223 TSH (Thyroid Stimulating Horm) 25.72 mcIU/mL High 0.34-5.60 Troponin-I (TnI) 0.04 ng/mL High <0.04 23 Comp Metabolic Panel 04/18/2018 [facility] Sodium 141 mmol/L N 135-145 [phone] Potassium 3.4 mmol/L Low 3.5-5.0 Chloride 103 mmol/L N 101-111 Co2 Carbon Dioxide 24 mmol/L N 22-32 Anion Gap 14 mmol/L High 2-11 Glucose 213 mg/dL High 70-100 Blood Urea Nitrogen 20 mg/dL N 6-24 Creatinine 0.98 mg/dL High 0.51-0.95 BUN/Creatinine Ratio 20.4 High 8-20 Calcium 9.7 mg/dL N 8.6-10.3 Total Protein 7.6 g/dL N 6.4-8.9 Albumin 4.4 g/dL N 3.2-5.2 Globulin 3.2 g/dL N 2-4 Albumin/Globulin Ratio 1.4 N 1-3 Total Bilirubin 0.50 mg/dL N 0.2-1.0 Alkaline Phosphatase 85 U/L N 34-104 Alt 37 U/L N 7-52 Ast 17 U/L N 13-39 Egfr Non- 61.7 >60 Egfr 74.6 >60 24 Laboratory test 04/18/2018 [facility] Acetaminophen < 15 g/mL 25 finding [phone] Alcohol < 10 mg/dL N <10 Salicylate < 2.50 mg/dL <30 Inr/Protime 04/18/2018 [facility] Inr 0.88 N 0.77- 1.02 [phone] Laboratory test 04/18/2018 [facility] Troponin-I 0.03 ng/mL <0.04 finding [phone] (TnI) Lactic Acid 2.8 mmol/L High 0.5-2.0 26 Creatinine 04/18/2018 [facility] Creatinine 0.94 mg/ dL N 0.51-0.95 [phone] Egfr Non- 64.7 >60 Egfr 78.3 >60 27 Inr/Protime 04/07/2018 [facility] Inr 0.92 N 0.77- 1.02 [phone] Laboratory test 04/07/2018 [facility] Partial 28.7 seconds N 26.0-36.3 finding [phone] Thrombo Time PTT Lactic Acid 2.0 mmol/L N 0.5-2.0 28 CBC Auto Diff 04/07/2018 [facility] White Blood 8.1 10^3/uL N 3.5-10.8 [phone] Count Red Blood Count 5.09 10^6/uL N 4.00-5.40 Hemoglobin 14.4 g/dL N 12.0-16.0 Hematocrit 44 % N 35-47 Mean Corpuscular Volume 86 fL N 80-97 Mean Corpuscular Hemoglobin 28 pg N 27-31 Mean Corpuscular HGB Conc 33 g/dL N 31-36 Red Cell Distribution Width 17 % High 10.5-15 Platelet Count 126 10^3/uL Low 150-450 Mean Platelet Volume 9.3 um3 N 7.4-10.4 Abs Neutrophils 6.3 10^3/uL N 1.5-7.7 Abs Lymphocytes 0.7 10^3/uL Low 1.0-4.8 Abs Monocytes 1.0 10^3/uL High 0-0.8 Abs Eosinophils 0 10^3/uL N 0-0.6 Abs Basophils 0 10^3/uL N 0-0.2 Abs Nucleated RBC 0 10^3/uL Granulocyte % 77.9 % N 38-83 Lymphocyte % 8.8 % Low 25-47 Monocyte % 12.6 % High 0-7 Eosinophil % 0.3 % N 0-6 Basophil % 0.4 % N 0-2 Nucleated Red Blood Cells % 0 Laboratory test 04/07/2018 [facility] B-Type 111 pg/ mL High 29 finding [phone] Natriuretic Peptide BNP Comp Metabolic 04/07/2018 [facility] Sodium 139 mmol/ L N 135-1 Panel [phone] Potassium 4.4 mmol/L N 3.5-5.0 Chloride 105 mmol/L N 101-111 Co2 Carbon Dioxide 28 mmol/L N 22-32 Anion Gap 6 mmol/L N 2-11 Glucose 134 mg/dL High 70-100 Blood Urea Nitrogen 19 mg/dL N 6-24 Creatinine 0.90 mg/dL N 0.51-0.95 BUN/Creatinine Ratio 21.1 High 8-20 Calcium 9.2 mg/dL N 8.6-10.3 Total Protein 6.5 g/dL N 6.4-8.9 Albumin 4.0 g/dL N 3.2-5.2 Globulin 2.5 g/dL N 2-4 Albumin/Globulin Ratio 1.6 N 1-3 Total Bilirubin 0.30 mg/dL N 0.2-1.0 Alkaline Phosphatase 82 U/L N 34-104 Alt 45 U/L N 7-52 Ast 17 U/L N 13-39 Egfr Non- 68.0 >60 Egfr 82.3 >60 30 Laboratory test 04/07/2018 [facility] Magnesium 2.2 mg/dL N 1.9-2.7 finding [phone] Troponin-I (TnI) 0.02 ng/mL <0.04 HCG < 0.60 mIU/mL 31 TSH (Thyroid Stimulating Horm) 8.46 mcIU/mL High 0.34-5.60 Inr/Protime 01/27/2018 [facility] Inr 0.93 N 0.77- 1.02 [phone] Laboratory test 01/27/2018 [facility] Partial 30.1 seconds N 26.0-36.3 finding [phone] Thrombo Time PTT Comp Metabolic 01/27/2018 [facility] Sodium 139 mmol/ L N 135-145 Panel [phone] Potassium 3.7 mmol/L N 3.5-5.0 Chloride 106 mmol/L N 101-111 Co2 Carbon Dioxide 26 mmol/L N 22-32 Anion Gap 7 mmol/L N 2-11 Glucose 100 mg/dL N 70-100 Blood Urea Nitrogen 12 mg/dL N 6-24 Creatinine 0.89 mg/dL N 0.51-0.95 BUN/Creatinine Ratio 13.5 N 8-20 Calcium 9.7 mg/dL N 8.6-10.3 Total Protein 7.2 g/dL N 6.4-8.9 Albumin 4.3 g/dL N 3.2-5.2 Globulin 2.9 g/dL N 2-4 Albumin/Globulin Ratio 1.5 N 1-3 Total Bilirubin 0.30 mg/dL N 0.2-1.0 Alkaline Phosphatase 97 U/L N 34-104 Alt 21 U/L N 7-52 Ast 16 U/L N 13-39 Egfr Non- 68.9 >60 Egfr 83.4 >60 32 Laboratory test 01/27/2018 [facility] Creatine Kinase 90 U/L N 10-223 finding [phone] C Reactive Protein 25.72 mg/L High <8.01 Troponin-I (TnI) 0.00 ng/mL <0.04 Lactic Acid 1.7 mmol/L N 0.5-2.0 33 CBC Auto Diff 01/27/2018 [facility] White Blood 5.1 10^3/uL N 3.5-10.8 [phone] Count Red Blood Count 4.96 10^6/uL N 4.00-5.40 Hemoglobin 13.6 g/dL N 12.0-16.0 Hematocrit 42 % N 35-47 Mean Corpuscular Volume 84 fL N 80-97 Mean Corpuscular Hemoglobin 28 pg N 27-31 Mean Corpuscular HGB Conc 33 g/dL N 31-36 Red Cell Distribution Width 16 % High 10.5-15 Platelet Count 152 10^3/uL N 150-450 Mean Platelet Volume 9.2 um3 N 7.4-10.4 Abs Neutrophils 3.1 10^3/uL N 1.5-7.7 Abs Lymphocytes 1.3 10^3/uL N 1.0-4.8 Abs Monocytes 0.6 10^3/uL N 0-0.8 Abs Eosinophils 0 10^3/uL N 0-0.6 Abs Basophils 0 10^3/uL N 0-0.2 Abs Nucleated RBC 0 10^3/uL Granulocyte % 60.8 % N 38-83 Lymphocyte % 26.3 % N 25-47 Monocyte % 11.5 % High 0-7 Eosinophil % 0.5 % N 0-6 Basophil % 0.9 % N 0-2 Nucleated Red Blood Cells % 0.1 Laboratory test 01/27/2018 [facility] B-Type 21 pg/ mL 34 finding [phone] Natriuretic Peptide BNP Laboratory test 01/10/2018 [facility] Troponin-I (TnI ) 0.00 ng/mL <0.04 finding [phone] Comp Metabolic 01/10/2018 [facility] Sodium 140 mmol/ L N 135-1 Panel [phone] Potassium 4.1 mmol/L N 3.5-5.0 Chloride 105 mmol/L N 101-111 Co2 Carbon Dioxide 27 mmol/L N 22-32 Anion Gap 8 mmol/L N 2-11 Glucose 100 mg/dL N 70-100 Blood Urea Nitrogen 11 mg/dL N 6-24 Creatinine 0.87 mg/dL N 0.51-0.95 BUN/Creatinine Ratio 12.6 N 8-20 Calcium 9.5 mg/dL N 8.6-10.3 Total Protein 7.2 g/dL N 6.4-8.9 Albumin 4.3 g/dL N 3.2-5.2 Globulin 2.9 g/dL N 2-4 Albumin/Globulin Ratio 1.5 N 1-3 Total Bilirubin 0.20 mg/dL N 0.2-1.0 Alkaline Phosphatase 109 U/L High 34-104 Alt 21 U/L N 7-52 Ast 17 U/L N 13-39 Egfr Non- 70.7 >60 Egfr 85.6 >60 35 Laboratory test 01/10/2018 [facility] Troponin-I 0.01 ng/mL <0.04 finding [phone] (TnI) CBC Auto Diff 01/10/2018 [facility] White Blood 6.0 N 3.5-10.8 [phone] Count 10^3/uL Red Blood Count 4.88 10^6/uL N 4.00-5.40 Hemoglobin 13.6 g/dL N 12.0-16.0 Hematocrit 40 % N 35-47 Mean Corpuscular Volume 83 fL N 80-97 Mean Corpuscular Hemoglobin 28 pg N 27-31 Mean Corpuscular HGB Conc 34 g/dL N 31-36 Red Cell Distribution Width 15 % N 10.5-15 Platelet Count 179 10^3/uL N 150-450 Mean Platelet Volume 8.9 um3 N 7.4-10.4 Abs Neutrophils 4.1 10^3/uL N 1.5-7.7 Abs Lymphocytes 1.1 10^3/uL N 1.0-4.8 Abs Monocytes 0.7 10^3/uL N 0-0.8 Abs Eosinophils 0 10^3/uL N 0-0.6 Abs Basophils 0.1 10^3/uL N 0-0.2 Laboratory test 01/10/2018 [facility] Lactic Acid 1.4 mmol/L N 0.5-2.0 36 finding [phone] Manual 01/10/2018 [facility] Neutrophil % 70 % N 38 -83 Differential [phone] Lymphocytes % 16 % Low 25-47 Monocytes % 11 % High 0-7 Eosinophils % 0 % N 0-6 Basophil % 0 % N 0-2 Variant Lymph % 3 % N 0-6 Abs Neutrophils 4.2 10^3/uL N 1.5-7.7 Abs Lymphocytes 1.0 10^3/uL N 1.0-4.8 Abs Monocytes 0.7 10^3/uL N 0-0.8 Abs Eosinophils 0 10^3/uL N 0-0.6 Abs Basophils 0 10^3/uL N 0-0.2 RBC Morphology Normal Normal Laboratory test 01/10/2018 [facility] Pathologist ( SEE NOTE) 37 finding [phone] Review Laboratory test 02/10/2017 [facility] Lactic Acid 1.6 mmol/L N 0.5-2 38 finding [phone] Arterial Blood 02/10/2017 [facility] PH Arterial 7.39 N 7.35- Gas [phone] 7.45 Pco2 Arterial 42 mmHg N 35-45 Po2 Arterial 68 mmHg Low 80-100 O2 Saturation Arterial 96.4 % N 95-98 Base Excess Arterial 0.3 N -2.0-2.0 39 Hco3 Arterial 24.9 mmol/L N 19-31 Laboratory test 01/04/2017 [facility] Partial 28.3 seconds N 26.0-36.3 finding [phone] Thrombo Time PTT D Dimer Quantitative < 200 ng/mL N Less Than 230 40 Inr/Protime 01/04/2017 [facility] Inr 0.92 N 0.89- 1.11 [phone] CBC Auto Diff 01/04/2017 [facility] White Blood 5.9 10^3/uL N 3.5-10.8 [phone] Count Red Blood Count 4.77 10^6/uL N 4.0-5.4 Hemoglobin 13.0 g/dL N 12.0-16.0 Hematocrit 40 % N 35-47 Mean Corpuscular Volume 83 fL N 80-97 Mean Corpuscular Hemoglobin 27 pg N 27-31 Mean Corpuscular HGB Conc 33 g/dL N 31-36 Red Cell Distribution Width 16 % High 10.5-15 Platelet Count 142 10^3/uL Low 150-450 Mean Platelet Volume 10 um3 N 7.4-10.4 Abs Neutrophils 4.1 10^3/uL N 1.5-7.7 Abs Lymphocytes 1.0 10^3/uL N 1.0-4.8 Abs Monocytes 0.7 10^3/uL N 0-0.8 Abs Eosinophils 0 10^3/uL N 0-0.6 Abs Basophils 0.1 10^3/uL N 0-0.2 Abs Nucleated RBC 0.02 10^3/uL N Granulocyte % 69.4 % N 38-83 Lymphocyte % 17.6 % Low 25-47 Monocyte % 12.1 % High 1-9 Eosinophil % 0.1 % N 0-6 Basophil % 0.8 % N 0-2 Nucleated Red Blood Cells % 0.3 N Laboratory test 01/04/2017 [facility] Troponin-I (TnI ) 0.00 ng/mL N <0.04 finding [phone] B-Type Natriuretic Peptide BNP 30 pg/mL N 41 Blood Culture SEE RESULT BELOW 42 Comp Metabolic Panel 01/04/2017 [facility] Sodium 135 mmol/L N 133-145 [phone] Potassium 3.8 mmol/L N 3.5-5.0 Chloride 105 mmol/L N 101-111 Co2 Carbon Dioxide 24 mmol/L N 22-32 Anion Gap 6 mmol/L N 2-11 Glucose 153 mg/dL High 70-100 Blood Urea Nitrogen 8 mg/dL N 6-24 Creatinine 0.81 mg/dL N 0.51-0.95 BUN/Creatinine Ratio 9.9 N 8-20 Calcium 9.6 mg/dL N 8.6-10.3 Total Protein 7.1 g/dL N 6.4-8.9 Albumin 4.1 g/dL N 3.2-5.2 Globulin 3.0 g/dL N 2-4 Albumin/Globulin Ratio 1.4 N 1-3 Total Bilirubin 0.20 mg/dL N 0.2-1.0 Alkaline Phosphatase 97 U/L N 34-104 Alt 34 U/L N 7-52 Ast 23 U/L N 13-39 Egfr Non- 77.2 N >60 Egfr 99.2 N >60 43 CBC Auto Diff 11/24/2016 [facility] White Blood 7.1 10^3/uL N 3.5-10.8 [phone] Count Red Blood Count 5.10 10^6/uL N 4.0-5.4 Hemoglobin 13.2 g/dL N 12.0-16.0 Hematocrit 41 % N 35-47 Mean Corpuscular Volume 80 fL N 80-97 Mean Corpuscular Hemoglobin 26 pg Low 27-31 Mean Corpuscular HGB Conc 32 g/dL N 31-36 Red Cell Distribution Width 15 % N 10.5-15 Platelet Count 141 10^3/uL Low 150-450 Mean Platelet Volume 10 um3 N 7.4-10.4 Abs Neutrophils 5.9 10^3/uL N 1.5-7.7 Abs Lymphocytes 0.8 10^3/uL Low 1.0-4.8 Abs Monocytes 0.4 10^3/uL N 0-0.8 Abs Eosinophils 0 10^3/uL N 0-0.6 Abs Basophils 0.1 10^3/uL N 0-0.2 Abs Nucleated RBC 0 10^3/uL N Granulocyte % 82.6 % N 38-83 Lymphocyte % 11.3 % Low 25-47 Monocyte % 5.0 % N 1-9 Eosinophil % 0.2 % N 0-6 Basophil % 0.9 % N 0-2 Nucleated Red Blood Cells % 0 N Comp Metabolic Panel 11/24/2016 [facility] Sodium 133 mmol/L N 133-145 [phone] Potassium 4.2 mmol/L N 3.5-5.0 Chloride 100 mmol/L Low 101-111 Co2 Carbon Dioxide 24 mmol/L N 22-32 Anion Gap 9 mmol/L N 2-11 Glucose 169 mg/dL High 70-100 Blood Urea Nitrogen 11 mg/dL N 6-24 Creatinine 0.90 mg/dL N 0.51-0.95 BUN/Creatinine Ratio 12.2 N 8-20 Calcium 10.1 mg/dL N 8.6-10.3 Total Protein 7.7 g/dL N 6.4-8.9 Albumin 4.4 g/dL N 3.2-5.2 Globulin 3.3 g/dL N 2-4 Albumin/Globulin Ratio 1.3 N 1-3 Total Bilirubin 0.30 mg/dL N 0.2-1.0 Alkaline Phosphatase 129 U/L High 34-104 Alt 46 U/L N 7-52 Ast 34 U/L N 13-39 Egfr Non- 68.3 N >60 Egfr 87.9 N >60 44 Laboratory test 11/24/2016 [facility] Troponin-I (TnI ) 0.01 ng/mL N <0.04 finding [phone] Lactic Acid 2.0 mmol/L N 0.5-2.0 45 B-Type Natriuretic Peptide BNP 21 pg/mL N 46 C Reactive Protein 61.01 mg/L High < 5.00 47 Blood Culture SEE RESULT BELOW 48 Lipid Profile 10/23/2016 [facility] Triglycerides 125 mg/dL N 49 (Trig/Chol/HDL) [phone] Cholesterol 164 mg/dL N 50 HDL Cholesterol 31.7 mg/dL N 51 LDL Cholesterol 107 mg/dL N 52 Laboratory test 10/23/2016 [facility] Hemoglobin A1c 5.8 % N Less than 53 finding [phone] (Glyco HGB) 6.0 CBC Auto Diff 10/23/2016 [facility] White Blood 5.7 N 3.5-10.8 [phone] Count 10^3/uL Red Blood Count 5.06 10^6/uL N 4.0-5.4 Hemoglobin 13.1 g/dL N 12.0-16.0 Hematocrit 41 % N 35-47 Mean Corpuscular Volume 81 fL N 80-97 Mean Corpuscular Hemoglobin 26 pg Low 27-31 Mean Corpuscular HGB Conc 32 g/dL N 31-36 Red Cell Distribution Width 15 % N 10.5-15 Platelet Count 164 10^3/uL N 150-450 Mean Platelet Volume 10 um3 N 7.4-10.4 Abs Neutrophils 4.0 10^3/uL N 1.5-7.7 Abs Lymphocytes 1.0 10^3/uL N 1.0-4.8 Abs Monocytes 0.7 10^3/uL N 0-0.8 Abs Eosinophils 0 10^3/uL N 0-0.6 Abs Basophils 0 10^3/uL N 0-0.2 Abs Nucleated RBC 0.01 10^3/uL N Granulocyte % 69.6 % N 38-83 Lymphocyte % 17.6 % Low 25-47 Monocyte % 11.5 % High 1-9 Eosinophil % 0.6 % N 0-6 Basophil % 0.7 % N 0-2 Nucleated Red Blood Cells % 0.2 N Laboratory Studies 10/23/2016 N2N/CCD Import Absolute Basophils [...] Count 5.7 10^3/ul 3.5-10.8 Laboratory test 07/26/2016 [facility] Body Fluid SEE RESULT 54, 55 finding [phone] Cult & Gram BELOW [employer] Profile SEE RESULT BELOW 56 Laboratory test 07/26/2016 [facility] Fungal Cult - SEE RESULT 57 finding [phone] Other Sources BELOW Laboratory test 07/26/2016 [facility] Fungal Cult - SEE RESULT 58 finding [phone] Other Sources BELOW Laboratory test 07/26/2016 [facility] Mycobacterial See Comment N 59 finding [phone] Culture Comp Metabolic 07/15/2016 [facility] Sodium 137 mmol/ L N 133-1 Panel [phone] Potassium 3.5 mmol/L N 3.5-5.0 Chloride 105 mmol/L N 101-111 Co2 Carbon Dioxide 24 mmol/L N 22-32 Anion Gap 8 mmol/L N 2-11 Glucose 129 mg/dL High 70-100 Blood Urea Nitrogen 10 mg/dL N 6-24 Creatinine 0.80 mg/dL N 0.51-0.95 BUN/Creatinine Ratio 12.5 N 8-20 Calcium 9.8 mg/dL N 8.6-10.3 Total Protein 7.4 g/dL N 6.4-8.9 Albumin 4.2 g/dL N 3.2-5.2 Globulin 3.2 g/dL N 2-4 Albumin/Globulin Ratio 1.3 N 1-3 Total Bilirubin 0.20 mg/dL N 0.2-1.0 Alkaline Phosphatase 103 U/L N 34-104 Alt 26 U/L N 7-52 Ast 18 U/L N 13-39 Egfr Non- 78.7 N >60 Egfr 101.2 N >60 60 Laboratory test finding 07/15/2016 [facility] Inr 0.99 N 0.89-1.11 [phone] Partial Thrombo Time PTT 30.2 seconds N 26.0-36.3 CBC Auto Diff 07/15/2016 [facility] White Blood 5.3 10^3/uL N 3.5-10.8 [phone] Count Red Blood Count 4.83 10^6/uL N 4.0-5.4 Hemoglobin 12.9 g/dL N 12.0-16.0 Hematocrit 40 % N 35-47 Mean Corpuscular Volume 82 fL N 80-97 Mean Corpuscular Hemoglobin 27 pg N 27-31 Mean Corpuscular HGB Conc 33 g/dL N 31-36 Red Cell Distribution Width 15 % N 10.5-15 Platelet Count 182 10^3/uL N 150-450 Mean Platelet Volume 11 um3 High 7.4-10.4 Abs Neutrophils 3.4 10^3/uL N 1.5-7.7 Abs Lymphocytes 1.2 10^3/uL N 1.0-4.8 Abs Monocytes 0.6 10^3/uL N 0-0.8 Abs Eosinophils 0 10^3/uL N 0-0.6 Abs Basophils 0 10^3/uL N 0-0.2 Abs Nucleated RBC 0 10^3/uL N Granulocyte % 65.0 % N 38-83 Lymphocyte % 22.6 % Low 25-47 Monocyte % 11.6 % High 1-9 Eosinophil % 0.3 % N 0-6 Basophil % 0.5 % N 0-2 Nucleated Red Blood Cells % 0 N Laboratory Studies 07/15/2016 N2N/CCD Import Absolute Basophils [...] Count 5.3 10^3/ul 3.5-10.8 Laboratory test 06/23/2016 [facility] TSH (Thyroid 6.73 High 0.34-5.60 61 finding [phone] Stim Horm) mcIU/mL CBC Auto Diff 06/23/2016 [facility] White Blood 5.6 10^3/uL N 3.5-10.8 [phone] Count Red Blood Count 4.75 10^6/uL N 4.0-5.4 Hemoglobin 12.6 g/dL N 12.0-16.0 Hematocrit 39 % N 35-47 Mean Corpuscular Volume 83 fL N 80-97 Mean Corpuscular Hemoglobin 27 pg N 27-31 Mean Corpuscular HGB Conc 32 g/dL N 31-36 Red Cell Distribution Width 15 % N 10.5-15 Platelet Count 170 10^3/uL N 150-450 Mean Platelet Volume 10 um3 N 7.4-10.4 Abs Neutrophils 3.6 10^3/uL N 1.5-7.7 Abs Lymphocytes 1.3 10^3/uL N 1.0-4.8 Abs Monocytes 0.7 10^3/uL N 0-0.8 Abs Eosinophils 0 10^3/uL N 0-0.6 Abs Basophils 0 10^3/uL N 0-0.2 Abs Nucleated RBC 0.01 10^3/uL N Granulocyte % 63.6 % N 38-83 Lymphocyte % 23.1 % Low 25-47 Monocyte % 12.8 % High 1-9 Eosinophil % 0.2 % N 0-6 Basophil % 0.3 % N 0-2 Nucleated Red Blood Cells % 0.1 N Comp Metabolic Panel 06/23/2016 [facility] Sodium 136 mmol/L N 133-145 [phone] Potassium 4.1 mmol/L N 3.5-5.0 Chloride 103 mmol/L N 101-111 Co2 Carbon Dioxide 27 mmol/L N 22-32 Anion Gap 6 mmol/L N 2-11 Glucose 136 mg/dL High 70-100 Blood Urea Nitrogen 10 mg/dL N 6-24 Creatinine 0.93 mg/dL N 0.51-0.95 BUN/Creatinine Ratio 10.8 N 8-20 Calcium 9.6 mg/dL N 8.6-10.3 Total Protein 7.0 g/dL N 6.4-8.9 Albumin 4.4 g/dL N 3.2-5.2 Globulin 2.6 g/dL N 2-4 Albumin/Globulin Ratio 1.7 N 1-3 Total Bilirubin 0.30 mg/dL N 0.2-1.0 Alkaline Phosphatase 106 U/L High 34-104 Alt 26 U/L N 7-52 Ast 20 U/L N 13-39 Egfr Non- 66.1 N >60 Egfr 85.0 N >60 62 Laboratory test 06/23/2016 [facility] Free T4 (Free 0.85 ng/dL N 0.61-1.12 63 finding [phone] Thyroxine) Laboratory test 03/15/2016 [facility] Free T4 (Free 0.72 ng/dL N 0.61-1.12 64 finding [phone] Thyroxine) T3 Total 1.04 ng/mL N 0.87-1.78 65 TSH (Thyroid Stim Horm) 10.86 mcIU/mL High 0.34-5.60 66 CBC Auto Diff 03/15/2016 [facility] White Blood 6.3 10^3/uL N 3.5-10.8 [phone] Count Red Blood Count 4.85 10^6/uL N 4.0-5.4 Hemoglobin 13.5 g/dL N 12.0-16.0 Hematocrit 41 % N 35-47 Mean Corpuscular Volume 84 fL N 80-97 Mean Corpuscular Hemoglobin 28 pg N 27-31 Mean Corpuscular HGB Conc 33 g/dL N 31-36 Red Cell Distribution Width 15 % N 10.5-15 Platelet Count 149 10^3/uL Low 150-450 Mean Platelet Volume 11 um3 High 7.4-10.4 Abs Neutrophils 4.2 10^3/uL N 1.5-7.7 Abs Lymphocytes 1.2 10^3/uL N 1.0-4.8 Abs Monocytes 0.8 10^3/uL N 0-0.8 Abs Eosinophils 0 10^3/uL N 0-0.6 Abs Basophils 0 10^3/uL N 0-0.2 Abs Nucleated RBC 0 10^3/uL N Granulocyte % 67.7 % N 38-83 Lymphocyte % 18.7 % Low 25-47 Monocyte % 12.9 % High 1-9 Eosinophil % 0.2 % N 0-6 Basophil % 0.5 % N 0-2 Nucleated Red Blood Cells % 0 N Laboratory test 11/23/2015 [facility] Troponin I 0.00 ng/mL N <0.03 67, 68 finding [phone] Urinalysis 11/23/2015 [facility] Urine Color Yellow N Profile [phone] Urine Appearance Turbid N Urine Specific [place] 1.016 N 1.010-1.030 Urine pH 7.0 N 5-9 Urine Urobilinogen Negative N Negative Urine Ketones Negative N Negative Urine Protein Negative N Negative Urine Leukocytes Trace Abnormal Negative Urine Blood 1+ Abnormal Negative Urine Nitrite Negative N Negative Urine Bilirubin Negative N Negative Urine Glucose Negative N Negative Urine White Blood Cell Absent N Absent Urine Red Blood Cell 2+(6-10/hpf) Abnormal Absent Urine Bacteria Absent N Absent Urine Squamous Epithelial Cell Present Abnormal Absent Urine Yeast Present Abnormal Absent Laboratory test 11/23/2015 [facility] Urine Culture SEE RESULT 69 finding [phone] BELOW CBC Auto Diff 11/23/2015 [facility] White Blood 3.5 10^3/uL N 3.5-10 [phone] Count .8 Red Blood Count 4.55 10^6/uL N 4.0-5.4 Hemoglobin 12.4 g/dL N 12.0-16.0 Hematocrit 38 % N 35-47 Mean Corpuscular Volume 84 fL N 80-97 Mean Corpuscular Hemoglobin 27 pg N 27-31 Mean Corpuscular HGB Conc 33 g/dL N 31-36 Red Cell Distribution Width 15 % N 10.5-15 Platelet Count 138 10^3/uL Low 150-450 Mean Platelet Volume 10 um3 N 7.4-10.4 Abs Neutrophils 1.9 10^3/uL N 1.5-7.7 Abs Lymphocytes 1.0 10^3/uL N 1.0-4.8 Abs Monocytes 0.5 10^3/uL N 0-0.8 Abs Eosinophils 0 10^3/uL N 0-0.6 Abs Basophils 0 10^3/uL N 0-0.2 Abs Nucleated RBC 0 10^3/uL N Granulocyte % 54.1 % N 38-83 Lymphocyte % 28.8 % N 25-47 Monocyte % 15.4 % High 1-9 Eosinophil % 0.9 % N 0-6 Basophil % 0.8 % N 0-2 Nucleated Red Blood Cells % 0.1 N Comp Metabolic Panel 11/23/2015 [facility] Sodium 139 mmol/L N 133-145 [phone] Potassium 3.7 mmol/L N 3.5-5.0 Chloride 105 mmol/L N 101-111 Co2 Carbon Dioxide 28 mmol/L N 22-32 Anion Gap 6 mmol/L N 2-11 Glucose 103 mg/dL High 70-100 Blood Urea Nitrogen 11 mg/dL N 6-24 Creatinine 0.86 mg/dL N 0.51-0.95 BUN/Creatinine Ratio 12.8 N 8-20 Calcium 9.8 mg/dL N 8.6-10.3 Total Protein 7.3 g/dL N 6.4-8.9 Albumin 4.3 g/dL N 3.2-5.2 Globulin 3.0 g/dL N 2-4 Albumin/Globulin Ratio 1.4 N 1-3 Total Bilirubin 0.30 mg/dL N 0.2-1.0 Alkaline Phosphatase 99 U/L N 34-104 Alt 29 U/L N 7-52 Ast 20 U/L N 13-39 Egfr Non- 72.4 N >60 Egfr 93.1 N >60 70 Laboratory test 11/23/2015 [facility] Magnesium 2.3 mg/dL N 1.9-2.7 finding [phone] Creatine Kinase 65 U/L N 10-223 Troponin I 0.00 ng/mL N <0.03 71 TSH (Thyroid Stimulating Horm) 4.07 ?IU/mL N 0.34-5.60 CBC Auto Diff 11/08/2015 [facility] White Blood 4.0 10^3/uL N 3.5-10.8 [phone] Count Red Blood Count 4.71 10^6/uL N 4.0-5.4 Hemoglobin 12.9 g/dL N 12.0-16.0 Hematocrit 39 % N 35-47 Mean Corpuscular Volume 83 fL N 80-97 Mean Corpuscular Hemoglobin 27 pg N 27-31 Mean Corpuscular HGB Conc 33 g/dL N 31-36 Red Cell Distribution Width 15 % N 10.5-15 Platelet Count 144 10^3/uL Low 150-450 Mean Platelet Volume 9 um3 N 7.4-10.4 Abs Neutrophils 2.6 10^3/uL N 1.5-7.7 Abs Lymphocytes 1.0 10^3/uL N 1.0-4.8 Abs Monocytes 0.4 10^3/uL N 0-0.8 Abs Eosinophils 0 10^3/uL N 0-0.6 Abs Basophils 0 10^3/uL N 0-0.2 Abs Nucleated RBC 0 10^3/uL N Granulocyte % 63.7 % N 38-83 Lymphocyte % 24.6 % Low 25-47 Monocyte % 10.9 % High 1-9 Eosinophil % 0.3 % N 0-6 Basophil % 0.5 % N 0-2 Nucleated Red Blood Cells % 0.1 N Urinalysis Profile 11/04/2015 [facility] Urine Color Yellow N [phone] Urine Appearance Cloudy N Urine Specific [place] 1.010 N 1.010-1.030 Urine pH 7.0 N 5-9 Urine Urobilinogen Negative N Negative Urine Ketones Negative N Negative Urine Protein Negative N Negative Urine Leukocytes 2+ Abnormal Negative Urine Blood Negative N Negative Urine Nitrite Negative N Negative Urine Bilirubin Negative N Negative Urine Glucose Negative N Negative Urine White Blood Cell Trace(0-5/hpf) N Absent Urine Red Blood Cell Absent N Absent Urine Bacteria Absent N Absent Urine Squamous Epithelial Cell Present Abnormal Absent Laboratory test 11/04/2015 [facility] Urine Culture SEE RESULT 72 finding [phone] BELOW Inr/Protime 11/04/2015 [facility] Inr 0.88 Low 0.89 -4 [phone] .11 Comp Metabolic 11/04/2015 [facility] Sodium 137 mmol/ L N 133-14 Panel [phone] 5 Potassium 4.5 mmol/L N 3.5-5.0 Chloride 105 mmol/L N 101-111 Co2 Carbon Dioxide 24 mmol/L N 22-32 Anion Gap 8 mmol/L N 2-11 Glucose 97 mg/dL N 70-100 Blood Urea Nitrogen 11 mg/dL N 6-24 Creatinine 0.83 mg/dL N 0.51-0.95 BUN/Creatinine Ratio 13.3 N 8-20 Calcium 9.6 mg/dL N 8.6-10.3 Total Protein 6.9 g/dL N 6.4-8.9 Albumin 4.4 g/dL N 3.2-5.2 Globulin 2.5 g/dL N 2-4 Albumin/Globulin Ratio 1.8 N 1-3 Total Bilirubin 0.20 mg/dL N 0.2-1.0 Alkaline Phosphatase 104 U/L N 34-104 Alt 25 U/L N 7-52 Ast 19 U/L N 13-39 Egfr Non- 75.4 N >60 Egfr 97.0 N >60 73 Laboratory test 11/04/2015 [facility] HCG < 0.60 N 74 finding [phone] mIU/mL Laboratory test 08/15/2015 [facility] TSH (Thyroid 4.07 ?IU/mL N 0.34- finding [phone] Stimulating Horm) 5.60 CKMB 08/15/2015 [facility] CKMB ng/mL 1.7 ng/mL N 0.6-6 [phone] .3 Laboratory test 08/15/2015 [facility] Magnesium 2.1 mg/dL N 1.9-2 finding [phone] .[phone] Lipase 25 U/L N 11.0-82.0 Creatine Kinase 53 U/L N 10-223 C Reactive Protein 17.16 mg/L High < 5.00 75 Troponin I 0.00 ng/mL N <0.03 76 Comp Metabolic Panel 08/15/2015 [facility] Sodium 135 mmol/L N 133-145 [phone] Potassium 3.7 mmol/L N 3.5-5.0 Chloride 110 mmol/L N 101-111 Co2 Carbon Dioxide 19 mmol/L Low 22-32 Anion Gap 6 mmol/L N 2-11 Glucose 106 mg/dL High 70-100 Blood Urea Nitrogen 10 mg/dL N 6-24 Creatinine 0.80 mg/dL N 0.51-0.95 BUN/Creatinine Ratio 12.5 N 8-20 Calcium 9.0 mg/dL N 8.6-10.3 Total Protein 7.4 g/dL N 6.4-8.9 Albumin 4.3 g/dL N 3.2-5.2 Globulin 3.1 g/dL N 2-4 Albumin/Globulin Ratio 1.4 N 1-3 Total Bilirubin 0.30 mg/dL N 0.2-1.0 Alkaline Phosphatase 91 U/L N 34-104 Alt 29 U/L N 7-52 Ast 25 U/L N 13-39 Egfr Non- 79.0 N >60 Egfr 101.7 N >60 77 Laboratory test 08/15/2015 [facility] Partial 35.8 seconds N 26.0-36.3 finding [phone] Thrombo Time PTT B-Type Natriuretic Peptide BNP 10 pg/mL N 78 Inr/Protime 08/15/2015 [facility] Inr 1.07 N 0.89- 1.11 [phone] Laboratory test 08/15/2015 [facility] Lactic Acid 0.9 N 0.5-2.0 79 finding [phone] mmol/L CBC Auto Diff 08/15/2015 [facility] White Blood 2.7 Low 3.5-10.8 [phone] Count 10^3/uL Red Blood Count 4.81 10^6/uL N 4.0-5.4 Hemoglobin 12.8 g/dL N 12.0-16.0 Hematocrit 40 % N 35-47 Mean Corpuscular Volume 84 fL N 80-97 Mean Corpuscular Hemoglobin 27 pg N 27-31 Mean Corpuscular HGB Conc 32 g/dL N 31-36 Red Cell Distribution Width 15 % N 10.5-15 Platelet Count 125 10^3/uL Low 150-450 Mean Platelet Volume 10 um3 N 7.4-10.4 Abs Neutrophils 1.3 10^3/uL Low 1.5-7.7 Abs Lymphocytes 0.9 10^3/uL Low 1.0-4.8 Abs Monocytes 0.5 10^3/uL N 0-0.8 Abs Eosinophils 0 10^3/uL N 0-0.6 Abs Basophils 0 10^3/uL N 0-0.2 Abs Nucleated RBC 0 10^3/uL N Granulocyte % 48.8 % N 38-83 Lymphocyte % 32.1 % N 25-47 Monocyte % 18.3 % High 1-9 Eosinophil % 0.4 % N 0-6 Basophil % 0.4 % N 0-2 Nucleated Red Blood Cells % 0.1 N Lipid Profile 07/19/2015 [facility] Triglycerides 158 mg/dL N 80 (Trig/Chol/HDL) [phone] Cholesterol 177 mg/dL N 81 HDL Cholesterol 33.5 mg/dL N 82 LDL Cholesterol 112 mg/dL N 83 Laboratory test 07/19/2015 [facility] Hemoglobin A1c 5.4 % N Less than 84 finding [phone] (Glyco HGB) 6.0 CBC Auto Diff 07/19/2015 [facility] White Blood 4.0 N 3.5-10.8 [phone] Count 10^3/uL Red Blood Count 4.75 10^6/uL N 4.0-5.4 Hemoglobin 13.0 g/dL N 12.0-16.0 Hematocrit 40 % N 35-47 Mean Corpuscular Volume 83 fL N 80-97 Mean Corpuscular Hemoglobin 27 pg N 27-31 Mean Corpuscular HGB Conc 33 g/dL N 31-36 Red Cell Distribution Width 15 % N 10.5-15 Platelet Count 180 10^3/uL N 150-450 Mean Platelet Volume 10 um3 N 7.4-10.4 Abs Neutrophils 2.7 10^3/uL N 1.5-7.7 Abs Lymphocytes 0.7 10^3/uL Low 1.0-4.8 Abs Monocytes 0.5 10^3/uL N 0-0.8 Abs Eosinophils 0 10^3/uL N 0-0.6 Abs Basophils 0 10^3/uL N 0-0.2 Abs Nucleated RBC 0.01 10^3/uL N Granulocyte % 67.5 % N 38-83 Lymphocyte % 18.5 % Low 25-47 Monocyte % 13.5 % High 1-9 Eosinophil % 0.2 % N 0-6 Basophil % 0.3 % N 0-2 Nucleated Red Blood Cells % 0.2 N Comp Metabolic Panel 07/19/2015 [facility] Sodium 136 mmol/L N 133-145 [phone] Potassium 4.6 mmol/L N 3.5-5.0 Chloride 107 mmol/L N 101-111 Co2 Carbon Dioxide 22 mmol/L N 22-32 Anion Gap 7 mmol/L N 2-11 Glucose 93 mg/dL N 70-100 Blood Urea Nitrogen 7 mg/dL N 6-24 Creatinine 0.81 mg/dL N 0.51-0.95 BUN/Creatinine Ratio 8.6 N 8-20 Calcium 9.3 mg/dL N 8.6-10.3 Total Protein 7.2 g/dL N 6.4-8.9 Albumin 4.5 g/dL N 3.2-5.2 Globulin 2.7 g/dL N 2-4 Albumin/Globulin Ratio 1.7 N 1-3 Total Bilirubin 0.30 mg/dL N 0.2-1.0 Alkaline Phosphatase 110 U/L High 34-104 Alt 21 U/L N 7-52 Ast 21 U/L N 13-39 Egfr Non- 77.9 N >60 Egfr 100.2 N >60 85 1 Therapeutic concentration: <50 ug/mL Toxic concentration: >120 ug/mL 2 ADDITIONAL INFORMATION This test was developed and its performance characteristics determined by [facility] in a manner consistent with CLIA requirements. This test has not been cleared or approved by the [place]. Food and Drug Administration. Test Performed by: [facility] [address] [place] [address] 3 Because ethnic data is not always [...] 5 Kidney failure <15 (or dialysis) 4 Specimen Hemolyzed. Result may not be valid. Unable to report test result due to hemolysis. 5 Unable to report test result due to hemolysis. 6 Unable to report test result due to hemolysis. 7 Specimen Hemolyzed. Result may not be valid. Unable to report test result due to hemolysis. 8 Unable to report test result due to hemolysis. 9 Please note: The following may produce a false positive D Dimer test: - Rheumatoid factor greater than 60 IU/ml - Plasma hemoglobin greater than 0.05 gm/dl - Bilirubin greater than 50 mg/dl - Lipids greater than 1000 mg/dl - FDP greater than 20 ug/ml 10 Unable to report test result due to hemolysis. 11 Presumptive Positive Presumptive positive results are unconfirmed. 12 Presumptive Positive Presumptive positive results are unconfirmed. 13 The urine specimen was tested at the listed cutoffs: Drug class test level (ng/mL) Amphetamines 500 Barbiturates 200 Benzodiazepine metabolites 200 Cocaine metabolites 150 Cannabinoids 50 Opiates 300 Pcp 25 Specimen was received without chain of custody. Results should be used for medical purposes only. 14 Reference ranges based on room air. 15 [facility] Severe Sepsis and Septic Shock Management Bundle Measure requires all lactic acids initially measuring >2.0 mmol/L be repeated. 16 Verbal to [id number] by [id number] at 2234 on 04/29/18. Results read back accurately. 17 Reference ranges based on room air. 18 Because ethnic data is not always readily [...] 15-29 5 Kidney failure <15 (or dialysis) 19 Erythrocytosis with increased hemoglobin. If polycythemia vera is a clinical consideration, recommend correlation with JAK2 analysis. Reviewed by Thalia Acosta MD 20 >100 to <200 pg/mL: likely compensated congestive heart failure (CHF) 200 to 400 pg/mL: likely moderate CHF >400 pg/mL: likely moderate to severe CHF 21 Critical Result LACT:3.4 Called to [id number] at: 17:49:25 by:[id number] Read back by:[id number] [place] Severe Sepsis and Septic Shock Management Bundle Measure requires all lactic acids initially measuring >2.0 mmol/L be repeated. 22 Reference ranges based on room air. 23 Result TnIDx:0.04 Called to [id number] at: 18:04:12 by:[id number] Read back by: [id number] 24 Because ethnic data is not always [...] 5 Kidney failure <15 (or dialysis) 25 Therapeutic concentration: <50 ug/mL Toxic concentration: >120 ug/mL 26 Critical Result LACT:2.8 Called to [id number] at: 20:44:35 by:[id number] Read back by:[id number] [place] Severe Sepsis and Septic Shock Management Bundle Measure requires all lactic acids initially measuring >2.0 mmol/L be repeated. 27 Because ethnic data is not always readily [...] 15-29 5 Kidney failure <15 (or dialysis) 28 [facility] Severe Sepsis and Septic Shock Management Bundle Measure requires all lactic acids initially measuring >2.0 mmol/L be repeated. 29 >100 to <200 pg/mL: likely compensated congestive heart failure (CHF) 200 to 400 pg/mL: likely moderate CHF >400 pg/mL: likely moderate to severe CHF 30 Because ethnic data is not always [...] 5 Kidney failure <15 (or dialysis) 31 <5.0 Negative 5.0 - 25.0 Indeterminate (Repeat testing recommended after 72 hours) >25.0 Positive Perimenopausal women can display HCG levels of up to 20 mIU/mL 32 Because ethnic data is not always [...] 5 Kidney failure <15 (or dialysis) 33 [facility] Severe Sepsis and Septic Shock Management Bundle Measure requires all lactic acids initially measuring >2.0 mmol/L be repeated. 34 >100 to <200 pg/mL: likely compensated congestive heart failure (CHF) 200 to 400 pg/mL: likely moderate CHF >400 pg/mL: likely moderate to severe CHF 35 Because ethnic data is not always [...] 5 Kidney failure <15 (or dialysis) 36 [facility] Severe Sepsis and Septic Shock Management Bundle Measure requires all lactic acids initially measuring >2.0 mmol/L be repeated. 37 Mild monocytosis favor reactive. Reviewed by Dr. Andrews 38 [facility] Severe Sepsis and Septic Shock Management Bundle Measure requires all lactic acids initially measuring >2.0 mmol/L be repeated. 39 Reference ranges based on room air. 40 Please note: The following may produce a false positive D Dimer test: - Rheumatoid factor greater than 60 IU/ml - Plasma hemoglobin greater than 0.05 gm/dl - Bilirubin greater than 50 mg/dl - Lipids greater than 1000 mg/dl - FDP greater than 20 ug/ml 41 >100 to <200 pg/mL: likely compensated congestive heart failure (CHF) 200 to 400 pg/mL: likely moderate CHF >400 pg/mL: likely moderate to severe CHF 42 SEE RESULT BELOW Name: ALYSIA ADEN : [address]: Jorge Mendoza MD Acct: [id number] Unit: [id number] AGE: 41 Location: ED Re01/03/17 SEX: F Status: DEP ER SPEC: [id number] YOANA: 01/04/170145 [facility] DR: Jorge Mendoza MD REQ: [id number] RECD: 01/04/17 STATUS: AALIYAH JEWELL DR: Claudio Gauthier MD _ SOURCE: BLOOD,VENO SPDESC: ORDERED: Blood Cult COMMENTS: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
--- OUTSIDE RECORDS SUMMARY | 2018-08-02 19:30 | XMS REPORT | Continuity of Care Document ---
:1975 External Reference #:[id number] Author Name Michelet Pollock DO, MPH Address [address] [place] [address], [address] [place] [address] Care Team Providers Name Role Phone Claudio Gauthier MD Care Team Information Social Work Assistant Unavailable Claudio Gauthier MD Primary Care Physician Unavailable Payers Type Date Identification Numbers Payment Provider Subscriber Policy Number: [id number] [facility] Alysia Aden PayID: [id number] [address] [address] [place] [address] Advance Directives Description No Information Available Problems [...] Use Denies Drug Use Smoking Status Reviewed: 07/05/18 Patient is a current smoker, smokes every [...] Available Vital Signs Date Vital Result Comment 07/05/2018 9:26am BP Systolic 136 mmHg BP [...] Available Procedures Description No Information Available Encounters Description No Information Available Plan of Treatment Future Appointment(s):07/19/2018 9:30 am - Michelet Pollock DO, MPH at Main Office as Of 07/19/1400 - Michelet Pollock DO, MPHG89.21 Chronic pain due to traumaComments:Chronic Intractable Pain. Symptoms and complaints discussed and reviewed today. Begin trial of adequate and appropriate Opioid Pain Management as well as non-opioid treatment options - New Medications listed below.M54.5 Low back painComments:Chronic Intractable Pain. Symptoms and complaints discussed and reviewed today. Begin trial of adequate and appropriate Opioid Pain Management as well as non-opioid treatment plan - New Medications listed below.J84.89 Other specified interstitial pulmonary diseasesComments:Followed by PCP and Pulmonology. Will follow in terms of pain management.E66.01 Morbid ( severe) obesity due to excess caloriesComments:Adherence to diet suggested. Followed by PCP. Morbid obesity greatly affects this patient's pain syndrome. Activity as tolerated is encouraged.F31.81 Bipolar II disorderComments:Followed by and PCP Psychiatry. Will follow as pertains to pain management. - Dr. Bauer. Begin Opoid Management - New Medications Below.F20.89 Other schizophreniaComments:Followed by PCP and psychiatry. Will follow as pertains to pain management and associated medications. Reassurance and counseling given. Begin opioid pain management.Z79.891 penitentiary (current) use of opiate analgesicNew Labs:Urine Drug Screen, Ordered: 07/05/18Comments:Urine drug screen sample taken today to monitor opiate use and to monitor use of illicit substances.Will discuss results at next appointment.The following tests were ordered:6 AM, AMPH, LÓPEZ, SHELLIE, BUP, CARIS, COCM, COT, ETG, FENT, MCSHSG, OPI, OXY, PCP, TAPEN, XTSY, ZOLP. ~I_A urine drug test (UDT) was ordered for this patient and collected [...] controlled substances and is considered standard of care. ~i_F17.210 Nicotine dependence, cigarettes, uncomplicatedComments:Patient encouraged to continue to try to stop smoking, considering their co-morbidities and to follow up with their PCP. Informed that smoking affects healing, the metabolism of medications in a negative way and interferes with pain receptors. Pain is directly and negatively effected by smoking.Z13.89 Encounter for screening for other disorderComments:Followed by PCP. Will follow as pertains to their pain. Patient seems to be stable today. Reassurance and counseling.Z71.89 Other specified counselingComments:New patient counseled in regards to office practice. They were educated about our answering services. What to do if they should have to visit the ER or have any adverse reactions to medications we prescribe. Patient understands that they have to fill his prescription at one pharmacy. If there is a change they must call us and let us know what new pharmacy they will be using. They understand and agree that they must present within 24 hours of a phone call for a random urine screen and a pill count.Patient understands that if the medication needs a prior authorization that it can take up to 72 hours to complete. Opioid Risk Tool ( O.R.T.) was used in this patient's initial in take. (see EMR for complete scanned document)Patient Health History, and Patient Pain Assessment from New Patient packetreviewed and scanned into EMR as well.Z71.3 Dietary counseling and surveillanceComments:Regular, small, nutritious meals higher in protein encouraged spaced evenly throughout the day. Count calories. Keep a food log. Hydrate.AllNew Medication:Gabapentin 100 mg - take 1 capsules by mouth every 8 hours ud. chronic pain.Comments:Chronic intractable pain - Begin trial of adequate and appropriate Opioid Pain Management - New Medications listed below; injection therapy, osteopathic manipulation, PT / modalities, and consults as needed to manage chronic pain.Non - opioid pain management discussed and options provided.Side effectsdiscussed; anticipatory guidance given. Patient clearly understand and agree with all medical treatments and suggestions. All medicines prescribed are adequate and appropriate for this patient's complaint of pain, medical history, physical, and personal goals.Goals of Treatment are to provide adequateand appropriate multidisciplinary medical pain management to increase/ maintain patient's quality oflife and functionality while maintaining satisfactory side effect profile and minimizing roasterman end-organ damage. Importance of regular nutrition throughout the day discussed.Activity as toleratedContinue with PCP
--- OUTSIDE RECORDS SUMMARY | 2018-08-02 19:30 | XMS REPORT | Continuity of Care Document ---
:1975 External Reference #:[id number] Author Name [place] Care Team Providers Name Role Phone Claudio Gauthier MD Primary Care Physician Unavailable Payers Type Date Identification Numbers Payment Provider Subscriber Policy Number: [id number] Rodriguez/[employer] Medicaid Alysia Aden PayID: [id number] [address] [address] [place] [address] Advance Directives Description No Information Available Problems Date Description Provider Status Onset: 10/29/2014 Migraine without aura Ruddy Aguirre M.D. Active Onset: 07/21/2016 Disorder of lung Janette Sebastian MD Active Onset: 07/21/2016 Tobacco user Janette Sebastian MD Active Onset: 07/21/2016 Obesity Janette Sebastian MD Active Family History Date Family Member(s) Problem(s) Comments General Maternal Uncle and Aunt ; brain Maternal side 6/7 aunts/uncles aneurysm w/brain aneurysms Maternal Aunt at age 67 Father DM , Heart issues , at age 49 Mother Brain Aneurysm 1991 Doing well Siblings None Social History Type Date Description Comments Sex Unknown Marital Status Single Lives With Family Tobacco Use Start: Unknown Light tobacco smoker (10 or fewer cigarettes/day) Smoking Status Reviewed: 07/16/18 Light tobacco smoker (10 or fewer cigarettes/day) ETOH Use Denies alcohol use Recreational Drug Use Denies Drug Use Tobacco Use Start: Unknown Light tobacco smoker (10 or fewer cigarettes/day) Exercise Type/Frequency Does not exercise Allergies, Adverse Reactions, Alerts Date Description Reaction Status Severity Comments 07/21/2016 Augmentin Active 07/21/2016 Ampicillin Active 07/21/2016 Dilantin Active 08/17/2016 Strawberries Active 11/30/2016 Sweet Potato Pie Active 10/28/2014 NKDA Inactive Medications Medication Date Status Form Strength Qnty SIG Indications Ordering Provider Atenolol 07/20/ Active Tablets 25mg 1 by mouth Unknown 2016 every day Lamotrigine ER 07/20/ Active Tablets ER 200mg 1 by mouth 2016 24HR every day Xanax 07/20/ Active Tablets 1mg 1 tablet 3 Unknown 2017 times daily as needed Vicodin 07/20/ Active Tablets 10-325mg take 1 by Unknown 2017 mouth as directed for pain Aspir-81 07/20/ Active Tablets DR 81mg 1 by mouth Unknown 2016 every day Vitamin D3 / Active Capsules 5000Unit 1 by mouth Unknown 0000 every day or 7 tabs po once a week Omeprazole / Active Capsules DR 40mg 1 by mouth Unknown 0000 every day Seroquel / Active Tablets 400mg 1 by mouth Unknown 0000 qhs Advair HFA / Active Aerosol 115-21mcg 1 - 2 puffs Unknown 0000 /Act twice a day Fluoxetine HCL / Active Capsules 40mg 1 by mouth Unknown 0000 every day Proair HFA / Active Aerosol 108(90Bas 2 puffs by Unknown 0000 e) mouth every mcg/Act 4-6 hours as needed Albuterol / Active Nebulizer (2.5mg/3M 1 vial via Unknown Sulfate 0000 L) 0.083% nebulizer q4h as needed for wheezing Levothyroxine / Active Tablets 137mcg 1 by mouth Unknown Sodium 0000 every day Risperdal / Active Tablets 3mg 1 tab po Unknown 0000 bid Prednisone 11/30/ Hx Tablets 5mg 45tab 2 tabs by J98.4 Janette 2017 - s mouth for Jaz, days and 2017 1 tablet for 2 weeks Amitriptyline 08/17/ Hx Tablets 10mg 30tab take 1 G43.009 Ruddy S. HCL 2016 - s tablets po Carla, 04/30/ qhs M.D. 2018 Tylenol 07/21/ Hx Capsules 325mg 2 as Janette 2017 - needed/dire Jaz, 11/29/ cted for 2016 migraines Baclofen 07/20/ Hx Tablets 10mg as directed Unknown 2017 - for pain 2018 Quetiapine 07/20/ Hx Tablets 200mg twice a day Unknown Fumarate 2017 - by mouth 2016 Benadryl 07/20/ Hx Capsules 25mg as Unknown Allergy 2017 - directed/ne 04/30/ eded for 2018 migraines Amitriptyline 10/29/ Hx Tablets 10mg 90tab 3 PO Qpm Mally HCL 2015 - s Wilda, 07/20/ Slim 2017 Rizatriptan / Hx Tablets 10mg 1 by mouth Unknown Benzoate 0000 - twice a day 07/20/ as needed 2017 headache max 2 days a week Magnesium-Oxide / Hx Tablets 400(241.3 1-5 tabs po Unknown 0000 - mg) mg every day. 04/30/ Increase as 2018 tolerated Topiramate / Hx Tablets 50mg 1 tab po Unknown 0000 - bid 2014 Cetirizine HCL / Hx Tablets 10mg 1 by mouth Unknown 0000 - every day 2016 Fluticasone / Hx Suspension 50mcg/Act 2 sprays Unknown Propionate 0000 - each 07/20/ nostril 2017 everyday Miralax / Hx Powder 3350NF 1.5 capfuls Unknown 0000 - po daily 2016 Ibuprofen / Hx Tablets 800mg 1 cap by Unknown 0000 - mouth three 08/17/ times a day 2017 Probiotic / Hx Capsules 1 by mouth Unknown 0000 - every day 2016 Meclizine HCL 00/ Hx Tablets 25mg 1 by mouth Unknown 0000 - daily prn 2017 Clonazepam / Hx Tablets 2mg 1/2 tab po Unknown 0000 - bid and 1n 11/29/ additional 2016 1/2 tab prn Trazodone HCL 00/ Hx Tablets 100mg 1 to 2 Unknown 0000 - tablets po 11/29/ at bedtime 2016 Topamax 00/ Hx Tablets 50mg 1 by mouth Unknown 0000 - twice a day 2016 Immunizations Description No Information Available Vital Signs Date Vital Result Comment 07/16/2018 12:31pm Height 66 inches 5'6" Weight 260.00 lb Heart Rate 110 /min BP Systolic Sitting 110 mmHg Lue large cuff BP Diastolic Sitting 76 mmHg Lue large cuff Respiratory Rate 16 /min O2 % BldC Oximetry 91 % 4LPM BMI (Body Mass Index) 42.0 kg/m2 06/05/2018 8:16am Height 66 inches 5'6" Weight 256.00 lb Heart Rate 100 /min BP Systolic Sitting 122 mmHg BP Diastolic Sitting 70 mmHg Respiratory Rate 14 /min O2 % BldC Oximetry 94 % on 3 L BMI (Body Mass Index) 41.3 kg/m2 05/01/2018 11:45am Height 66 inches 5'6" Weight 248.38 lb Heart Rate 94 /min BP Systolic Sitting 124 mmHg Rue large cuff BP Diastolic Sitting 86 mmHg Rue large cuff Respiratory Rate 12 /min O2 % BldC Oximetry 90 % @4LPM BMI (Body Mass Index) 40.1 kg/m2 11/30/2016 8:51am Height 66 inches Weight 238.00 lb Heart Rate 83 /min BP Systolic Sitting 120 mmHg BP Diastolic Sitting 72 mmHg Respiratory Rate 18 /min Pain Level 0 O2 % BldC Oximetry 93 % BMI (Body Mass Index) 38.4 kg/m2 08/17/2016 11:12am Height 66 inches 5'6" Weight 239.00 lb Heart Rate 60 /min BP Systolic Sitting 112 mmHg BP Diastolic Sitting 82 mmHg Respiratory Rate 14 /min BMI (Body Mass Index) 38.6 kg/m2 07/21/2016 7:27am Height 66 inches 5'6" Weight 238.50 lb Heart Rate 93 /min BP Systolic Sitting 140 mmHg BP Diastolic Sitting 82 mmHg Respiratory Rate 16 /min O2 % BldC Oximetry 96 % BMI (Body Mass Index) 38.5 kg/m2 Neck Circumference in inches 15.5 10/29/2014 11:15am Height 66 inches 5'6" Weight 220.00 lb Heart Rate 96 /min BP Systolic Sitting 130 mmHg BP Diastolic Sitting 80 mmHg Respiratory Rate 16 /min BMI (Body Mass Index) 35.5 kg/m2 Results Test Date Facility Test Result H/L Range Note Order 05/01/2018 [facility] Tender In-House 6 Minute Walk <pending> Body Fluid C&S 07/26/2016 [facility] Body Fluid Cult SEE RESULT 1, [address] [place] [address] [phone] Acid Fast 07/26/2016 [facility] Acid Fast Culture SEE RESULT 3 Culture & Smear [address] [place] [place] [address] [phone] Laboratory test 07/26/2016 [facility] Fungal Cult Other SEE RESULT [address] [place] [address] [phone] Laboratory test 07/26/2016 [facility] Fungal Cult - SEE RESULT [address] Other Sources BELOW [place], [place] [id number] [phone] Laboratory test 07/26/2016 [facility] Mycobacterial See Comment N [address] [place] [address] [phone] Laboratory test 07/26/2016 [facility] Surgical Pathology SEE RESULT [address] BELOW [place] [id number] [phone] Cytology Non-Livestock Speculator SEE RESULT BELOW 8 1 LEFT UPPER LOBE LAVAGE: LUNG NODULES, LEFT UPPER LOBE 2 SEE RESULT BELOW Name: ALYSIA ADEN : [address]: Janette Sebastian MD Acct: [id number] Unit: [id number] AGE: 40 Location: OR Re07/26/16 SEX: F Status: DEP SDC SPEC: [id number] YOANA: 07/26/16-[address]: Janette Sebastian MD REQ: [id number] RECD: 07/26/16 STATUS: COMP CABRERAHR DR: Claudio Gauthier MD _ SOURCE: BODY [...] at Main Lab DEPARTMENT OF PATHOLOGY, [address] [place] [address] John Andrews M.D. Director [facility] # [id number] 3 SEE RESULT BELOW Name: ALYSIA ADEN : [address]: Janette Sebastian MD Acct: [id number] Unit: [id number] AGE: 40 Location: OR Re07/26/16 SEX: F Status: REG SDC SPEC: [id number] YOANA: 07/26/16-[address] [facility] [address]: Janette Sebastian MD REQ: [id number] RECD: 07/26/16 STATUS: RES OTHR DR: Claudio [...] * ML - MAIN LAB ([facility]) . END OF REPORT * ML=Testing performed at Main Lab DEPARTMENT OF PATHOLOGY, [address] [place] [address] John Andrews M.D. Director [facility] # [id number] 4 SEE RESULT BELOW Name: ALYSIA ADEN : [address]: Janette Sebastian MD Acct: [id number] Unit: [id number] AGE: 40 Location: OR Re07/26/16 SEX: F Status: [facility] SPEC: [id number] YOANA: 07/26/16-[address] [facility] [address]: Janette Sebastian MD REQ: [id number] RECD: 07/26/16 STATUS: RES FANTA DR: Claudio Gatuhier MD _ SOURCE: RESP SPDESC:BRONCH WAS ORDERED: Fungal - Other, AFB Cult Smear COMMENTS: LEFT UPPER LOBE LAVAGE: LUNG NODULES, LEFT UPPER LOBE Procedure Result Reported Site Fungal Cult - Other Sources Preliminary 08/07/16- 1403 ML Fungal Culture No Growth of Mycotic Organisms 1 week Acid Fast Stain - Direct Final 07/26/16- 1400 ML AFB Smear Result No Acid Fast Bacillus Present (Negative) Preparation By Cytospin Smear Due to limited sensitivity of the smear, results should be used as an adjunct in evaluating the patient's status and cultural examination is highly recommended for diagnosis. * ML - MAIN LAB ([facility]) . END OF REPORT * ML=Testing performed at Main Lab DEPARTMENT OF PATHOLOGY, [address] [place] [address] John Andrews M.D. Director [facility] # [id number] 5 SEE RESULT BELOW Name: ALYSIA ADEN : [address]: Janette Sebastian MD Acct: [id number] Unit: [id number] AGE: 40 Location: OR Re07/26/16 SEX: F Status: DEP SDC SPEC: [id number] YOANA: 07/26/16-[address] [facility] [address]: Janette Sebastian MD REQ: [id number] RECD: 07/26/16 STATUS: AALIYAH JEWELL DR: Claudio [...] * ML - MAIN LAB ([facility]) . END OF REPORT * ML=Testing performed at Main Lab DEPARTMENT OF PATHOLOGY, [address] [place] [address] John Andrews M.D. Director [facility] # [id number] 6 SOURCE: BRONCHOALVEOLAR LAVAGE, LEFT UPPER LOBE LAVAGE MYCOBACTERIAL CULTURE FINAL No growth after 60 days of incubation. Test Performed by: [facility] - [address] [address] 7 SEE RESULT BELOW Name: ALYSIA ADEN : [address]: Janette Sebastian MD Acct: [id number] Unit: [id number] AGE: 40 Location: OR Re07/26/16 SEX: F Status: DEP [facility] SPEC: [id number] YOANA: 07/26/16-[address] [facility] [address]: Janette Sebastian MD REQ: [id number] RECD: 07/26/16 STATUS: SOUT _ ORDERED: LEVEL IV FINAL DIAGNOSIS Lung, transbronchial biopsy: -- Benign alveolar and bronchiolar lung parenchyma with no evidence of neoplasia or an inflammatory process. CLINICAL HISTORY Smoker with multiple pulmonary nodules suspicious for RBILD/DIP, rule out metastatic disease PRE-OPERATIVE DIAGNOSIS Diffuse lung disease with ground glass nodules GROSS DESCRIPTION The specimen is received in formalin labeled, Transbronchial Biopsy, and consists of a 0.5 x 0.3 x 0.2 cm aggregate of ortega irregular soft tissue fragments, which is submitted entirely in one cassette. Signed (signature on file) Thalia Acosta MD 03/04 1106 END OF REPORT * ML=Testing performed at Main Lab DEPARTMENT OF PATHOLOGY, [address] [place] [address] John Andrews M.D. Director [facility] # [id number] 8 SEE RESULT BELOW Name: ALYSIA ADEN Wilder : [address]: Janette Sebastian MD Acct: [id number] Unit: [id number] AGE: 40 Location: OR Re07/26/16 SEX: F Status: DEP [facility] SPEC: [id number] YOANA: 07/26/16-[address] [facility] [address]: Janette Sebastian MD REQ: [id number] RECD: 07/26/16-1315 STATUS: SOUT _ ORDERED: THIN PREP NON G FINAL DIAGNOSIS Bronchial lavage, left upper lobe: Negative for malignant cells. BRONCHIAL LAVAGE LEFT - LEFT UPPER LOBE BRONCHIAL LAVAGE CLINICAL HISTORY Lung nodules. GROSS DESCRIPTION 3 mls of red mucoid bronchial lavage fluid. Signed (signature on file) Thalia Acosta MD 03/04 1359 END OF REPORT * ML=Testing performed at Main Lab DEPARTMENT OF PATHOLOGY, [address] [place] [address] John Andrews M.D. Director [facility] # [id number] Procedures Date Code Description Status 05/03/2018 12761 EKG, Interpretation Only Completed 05/01/2018 02981 Pulmonary Stress Test Simple Completed 05/01/2018 16792 Pulmonary Stress Testing, Inc Measurement Heart Rate, Completed Oximetry 04/23/2018 89467 Echocardiogram, Limited Study Completed 04/19/2018 66084 EEG Recording Awake & Asleep Completed 04/19/2018 96422 ECHO Transthorasic Realtime 2D W Doppler & Color Flow Hosp Completed 01/11/2018 17972 Treadmill Interp/Report Only Completed 01/11/2018 21054 Stress Test Supervsn W/Out I/R Completed 06/15/2017 56401 Biopsy Skin Lesion Single Completed 07/26/2016 95262 Bronchoscopy W/Transbronchial Lung Biopsy Completed 09/13/2012 79951 Treadmill Interp/Report Only Completed 09/13/2012 21634 Stress Test Supervsn W/Out I/R Completed 09/13/2012 03267 EKG, Interpretation Only Completed 09/12/2012 58915 Treadmill Interp/Report Only Completed 09/12/2012 45053 Stress Test Supervsn W/Out I/R Completed Encounters Type Date Location Provider Dx Diagnosis Office Visit 06/05/2018 Pulmonology And Janette Sebastian, J84.9 Interstitial 8:15a Sleep Services Of pulmonary disease, Drier Take Off Tender unspecified J44.9 Chronic obstructive pulmonary disease, unspecified J96.21 Acute and chronic respiratory failure with hypoxia F17.210 Nicotine dependence, cigarettes, uncomplicated J96.22 Acute and chronic respiratory failure with hypercapnia E66.2 Morbid (severe) obesity with alveolar hypoventilation Office Visit 05/04/2018 1:52p [facility], Johnny Burrows MD R40.0 Somnolence Hospitalists R29.707 Nihss score 7 J96.21 Acute and chronic respiratory failure with hypoxia J84.9 Interstitial pulmonary disease, unspecified J44.9 Chronic obstructive pulmonary disease, unspecified Z68.41 Body mass index (BMI) 40.0-44.9, adult E66.2 Morbid (severe) obesity with alveolar hypoventilation Z99.81 Dependence on supplemental oxygen Office Visit 05/03/2018 1:52p [facility]ens[facility] Praful Basilio, R41.82 Altered mental DO status, unspecified J96.21 Acute and chronic respiratory failure with hypoxia J44.9 Chronic obstructive pulmonary disease, unspecified J84.9 Interstitial pulmonary disease, unspecified Z99.81 Dependence on supplemental oxygen Office Visit 05/02/2018 1:52p [facility] Ирина Gonzalez, R40.0 Somnolence Assoc,pc Hospitalists DO R29.707 Nihss score 7 J96.21 Acute and chronic respiratory failure with hypoxia Z68.41 Body mass index (BMI) 40.0-44.9, adult E66.2 Morbid (severe) obesity with alveolar hypoventilation Z99.81 Dependence on supplemental oxygen Office Visit 04/25/2018 11:33a [facility] Johnny Burrows J96.21 Acute and chronic Assoc,nenita JENSEN respiratory Hospitalists failure with hypoxia J96.02 Acute respiratory failure with hypercapnia Z68.41 Body mass index (BMI) 40.0-44.9, adult E66.2 Morbid (severe) obesity with alveolar hypoventilation J84.9 Interstitial pulmonary disease, unspecified J44.9 Chronic obstructive pulmonary disease, unspecified I10 Essential (primary) hypertension Office Visit 04/24/2018 11:26a Pulmonology And Janette J96.21 Acute and chronic Sleep Services Of MD Jaz respiratory Drier Take Off Tender failure with hypoxia J96.02 Acute respiratory failure with hypercapnia E66.2 Morbid (severe) obesity with alveolar hypoventilation J44.9 Chronic obstructive pulmonary disease, unspecified Office Visit 04/24/2018 11:32a [facility] Johnny Burrows J96.21 Acute and chronic Assoc,nenita JENSEN respiratory Hospitalists failure with hypoxia J96.02 Acute respiratory failure with hypercapnia Z68.41 Body mass index (BMI) 40.0-44.9, adult E66.2 Morbid (severe) obesity with alveolar hypoventilation J84.9 Interstitial pulmonary disease, unspecified J44.9 Chronic obstructive pulmonary disease, unspecified I10 Essential (primary) hypertension Office Visit 04/23/2018 [facility] Rupert J96.21 Acute and chronic 11:32a Assoc,pc Montez [place] respiratory Hospitalists failure with hypoxia I10 Essential (primary) hypertension Office Visit 04/22/2018 [facility] Mitch Cool J96.21 Acute and chronic 11:32a Assoc,pc MD [place] respiratory Hospitalists failure with hypoxia I10 Essential (primary) hypertension Office Visit 04/22/2018 2:29p Pulmonology And Janette J96.21 Acute and chronic Sleep Services Of MD Jaz respiratory Drier Take Off Tender failure with hypoxia J96.02 Acute respiratory failure with hypercapnia I27.23 Pulmonary hypertension due to lung diseases and hypoxia Z68.41 Body mass index (BMI) 40.0-44.9, adult E66.2 Morbid (severe) obesity with alveolar hypoventilation F17.211 Nicotine dependence, cigarettes, in remission J44.9 Chronic obstructive pulmonary disease, unspecified Office Visit 04/21/2018 [facility] Travon J96.21 Acute and chronic 11:32a nenita Duque MD respiratory Hospitalists failure with hypoxia R41.82 Altered mental status, unspecified J44.9 Chronic obstructive pulmonary disease, unspecified I10 Essential (primary) hypertension Office Visit 04/20/2018 [facility] J96.21 Acute and chronic 11:31a nenita Duque MD respiratory Hospitalists failure with hypoxia R41.82 Altered mental status, unspecified J44.9 Chronic obstructive pulmonary disease, unspecified I10 Essential (primary) hypertension Office Visit 04/19/2018 [facility] [place] J96.21 Acute and chronic 11:31a nenita Duque MD respiratory Hospitalists failure with hypoxia R41.82 Altered mental status, unspecified J44.9 Chronic obstructive pulmonary disease, unspecified I10 Essential (primary) hypertension Office Visit 04/18/2018 [facility] J96.21 Acute and chronic 11:31a Assocnenita, N.P. respiratory Hospitalists failure with hypoxia R41.82 Altered mental status, unspecified N17.9 Acute kidney failure, unspecified F17.201 Nicotine dependence, unspecified, in remission J44.1 Chronic obstructive pulmonary disease w (acute) exacerbation E87.6 Hypokalemia I10 Essential (primary) hypertension Office Visit 04/13/2018 10:46a Pulmonology And Janette J96.02 Acute respiratory Sleep Services Of MD Jaz failure with Drier Take Off Tender hypercapnia J96.01 Acute respiratory failure with hypoxia J44.1 Chronic obstructive pulmonary disease w (acute) exacerbation J84.9 Interstitial pulmonary disease, unspecified I27.20 Pulmonary hypertension, unspecified F17.210 Nicotine dependence, cigarettes, uncomplicated Office Visit 04/13/2018 [facility] [place] J96.01 Acute respiratory 11:59a Assnenita edwards MD failure with Hospitalists hypoxia J96.02 Acute respiratory failure with hypercapnia J44.1 Chronic obstructive pulmonary disease w (acute) exacerbation J84.9 Interstitial pulmonary disease, unspecified Office Visit 04/12/2018 10:45a Pulmonology And Janette J96.01 Acute respiratory Sleep Services Of MD Jaz failure with Drier Take Off Tender hypoxia J96.02 Acute respiratory failure with hypercapnia J44.1 Chronic obstructive pulmonary disease w (acute) exacerbation J84.9 Interstitial pulmonary disease, unspecified I27.20 Pulmonary hypertension, unspecified F17.210 Nicotine dependence, cigarettes, uncomplicated Office Visit 04/12/2018 [facility] [place] J96.01 Acute respiratory 11:59a ennita Duque MD failure with Hospitalists hypoxia J96.02 Acute respiratory failure with hypercapnia J44.1 Chronic obstructive pulmonary disease w (acute) exacerbation J84.9 Interstitial pulmonary disease, unspecified F17.210 Nicotine dependence, cigarettes, uncomplicated Office Visit 04/11/2018 [facility] [place] J96.01 Acute respiratory 11:59a Assnenita edwards MD failure with Hospitalists hypoxia J96.02 Acute respiratory failure with hypercapnia J44.1 Chronic obstructive pulmonary disease w (acute) exacerbation J84.9 Interstitial pulmonary disease, unspecified I27.20 Pulmonary hypertension, unspecified F17.210 Nicotine dependence, cigarettes, uncomplicated Office Visit 04/11/2018 10:44a Pulmonology And Janette J96.01 Acute respiratory Sleep Services Of MD Jaz failure with Drier Take Off Tender hypoxia J96.02 Acute respiratory failure with hypercapnia J44.1 Chronic obstructive pulmonary disease w (acute) exacerbation J84.9 Interstitial pulmonary disease, unspecified I27.20 Pulmonary hypertension, unspecified F17.210 Nicotine dependence, cigarettes, uncomplicated Office Visit 04/10/2018 10:44a Pulmonology And Janette J96.01 Acute respiratory Sleep Services Of MD Jaz failure with Drier Take Off Tender hypoxia J96.02 Acute respiratory failure with hypercapnia J44.1 Chronic obstructive pulmonary disease w (acute) exacerbation J84.9 Interstitial pulmonary disease, unspecified I27.20 Pulmonary hypertension, unspecified F17.210 Nicotine dependence, cigarettes, uncomplicated Office Visit 04/10/2018 11:58a [facility] J96.01 Acute respiratory Assoc,nenita Washington M.D. failure with Hospitalists hypoxia J96.02 Acute respiratory failure with hypercapnia J44.1 Chronic obstructive pulmonary disease w (acute) exacerbation J84.9 Interstitial pulmonary disease, unspecified F17.210 Nicotine dependence, cigarettes, uncomplicated Office Visit 04/09/2018 10:34a Pulmonology And Janette J96.01 Acute respiratory Sleep Services Of MD Jaz failure with Drier Take Off Tender hypoxia J96.02 Acute respiratory failure with hypercapnia F17.210 Nicotine dependence, cigarettes, uncomplicated J44.1 Chronic obstructive pulmonary disease w (acute) exacerbation Office Visit 04/09/2018 11:58a [facility] J96.01 Acute respiratory Assoc,nenita Washington M.D. failure with Hospitalists hypoxia J84.9 Interstitial pulmonary disease, unspecified J20.9 Acute bronchitis, unspecified F17.210 Nicotine dependence, cigarettes, uncomplicated Office Visit 04/08/2018 11:57a [facility] J96.01 Acute respiratory Assoc,nenita Washington M.D. failure with Hospitalists hypoxia J84.9 Interstitial pulmonary disease, unspecified J20.9 Acute bronchitis, unspecified F17.210 Nicotine dependence, cigarettes, uncomplicated Office Visit 04/07/2018 12:09p [facility] Wilmer J20.9 Acute bronchitis, Assoc,nenita Wilkins M.D. unspecified Hospitalists F17.210 Nicotine dependence, cigarettes, uncomplicated Office Visit 01/11/2018 11:57a [facility] Torie Carey, R07.89 Other chest Assoc,pc D.O. pain Hospitalists F17.210 Nicotine dependence, cigarettes, uncomplicated Office Visit 01/10/2018 11:56a [facility] Torie R07.9 Chest pain, Assoc,pc Aurelio D.O. unspecified Hospitalists Z68.37 Body mass index (BMI) 37.0-37.9, adult E66.09 Other obesity due to excess calories F17.210 Nicotine dependence, cigarettes, uncomplicated Office Visit 06/15/2017 8:50a [facility] Dermatology Javier Orozco, L30.9 DermatitisMD unspecified Office Visit 11/30/2016 9:00a Pulmonology And Janette J98.4 Other disorders Sleep Services Of MD Jaz of lung [facility] F17.210 Nicotine dependence, cigarettes, uncomplicated E66.09 Other obesity due to excess calories Z68.38 Body mass index (BMI) 38.0-38.9, adult Office Visit 11/26/2016 9:40a Pulmonology And Sleep Janette Jaz, R09.02 Hypoxemia Services Of [facility] J44.9 Chronic obstructive pulmonary disease, unspecified Office Visit 11/26/2016 1:49p [facility] R93.8 Abnormal Assoc,nenita Morrison, DIRECTOR CLINICAL APPLICATIONS findings on Hospitalists diagnostic imaging of body structures R09.02 Hypoxemia J44.9 Chronic obstructive pulmonary disease, unspecified I10 Essential (primary) hypertension Office Visit 11/25/2016 [facility] Shmuel Hernandez R93.8 Abnormal 1:48p Assoc,nenita BRENNAN M.D. findings on Hospitalists diagnostic imaging of body structures R09.02 Hypoxemia J44.9 Chronic obstructive pulmonary disease, unspecified I10 Essential (primary) hypertension Office 08/17/2016 [facility] Ruddy Gill G43.009 Migraine w/o Visit 11:00a Ahsan Aguirre M.D. aura, not intractable, w/o status migrainosus Z86.79 Personal history of other diseases of the circulatory system Office Visit 07/21/2016 7:30a Pulmonology And Janette J98.4 Other disorders [facility] Jaz of lung [facility] F17.210 Nicotine dependence, cigarettes, uncomplicated E66.09 Other obesity due to excess calories Z68.38 Body mass index (BMI) 38.0-38.9, adult Office Visit 03/25/2015 [facility] Gordon A41.02 Sepsis due to 2:23p nenita Duque M.D. Methicillin Hospitalists resistant Staphylococcus aureus R73.9 Hyperglycemia, unspecified R06.02 Shortness of breath Office Visit 03/24/2015 [facility] A41.02 Sepsis due to 2:22p nneita Duque M.D. Methicillin Hospitalists resistant Staphylococcus aureus R73.9 Hyperglycemia, unspecified R06.02 Shortness of breath R65.10 Sirs of non-infectious origin w/o acute organ dysfunction Office Visit 03/23/2015 [facility] A41.02 Sepsis due to 2:22p Assocnenita M.D. Methicillin Hospitalists resistant Staphylococcus aureus R73.9 Hyperglycemia, unspecified R06.02 Shortness of breath Office 03/22/2015 [facility] Shmuel Hernandez R65.10 Sirs of Visit 2:18p Assocnenita II, M.D. 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 Respiration Hospitalists 401.9 Hypertension Unspec 244.9 Hypothyroidism Other Unspec 311 Depressive Disorder Not Elsewhere Spec Office Visit 09/12/2012 10:18a [facility] Ra Benjamin, 786.52 Painful Assocnenita M.D. Respiration Hospitalists 401.9 Hypertension Unspec 244.9 Hypothyroidism Other Unspec 311 Depressive Disorder Not Elsewhere Spec Plan of Treatment Future Appointment(s):09/13/2018 9:15 am - Janette Sebastian MD at [facility]07/16/2018 - Janette Sebastian MDJ84.9 Interstitial pulmonary disease, unspecifiedFollow up:2 rjqbodX02.9 Chronic obstructive pulmonary disease, hcgqpdczmulA04.10 Chronic respiratory failure, unspecified whether with wustdgF21.09 Other obesity due to excess calories
[2018-08-02 20:25] LABS: ABS Basophils 0.1 10^3/ul (0-0.2); ABS Eosinophils 0 10^3/ul (0-0.6); ABS Lymphocytes 1.2 10^3/ul (1.0-4.8); ABS Monocytes 0.9 10^3/ul (0-0.8); ABS Neutrophils 4.3 10^3/ul (1.5-7.7); ABS Nucleated RBC 0 10^3/ul; Eosinophil % 0.2 %; Hematocrit 42 % (35-47); Hemoglobin 13.9 g/dl (12.0-16.0); Lymphocyte % 18.3 %; Mean Corpuscular HGB Conc 33 g/dl (31-36); Mean Corpuscular Hemoglobin 28 pg (27-31); Mean Corpuscular Volume 86 fL (80-97); Mean Platelet Volume 9.8 fL (7.4-10.4); Nucleated Red Blood Cells % 0.2; Platelet Count 153 10^3/ul (150-450); Red Blood Count 4.89 10^6/ul (4.00-5.40); Red Cell Distribution Width 15 % (10.5-15); White Blood Count 6.5 10^3/ul (3.5-10.8)
[2018-08-02 20:41] LABS: Albumin 4.7 g/dL (3.2-5.2); Albumin/Globulin Ratio 1.6 (1-3); BUN/Creatinine Ratio 16.7 (8-20); Calcium 9.6 mg/dL (8.6-10.3); EGFR African American 82.3 (>60); Potassium 3.9 mmol/L (3.5-5.0); Total Bilirubin 0.2 mg/dL (0.2-1.0); Total Protein 7.7 g/dL (6.4-8.9)
--- NOTE | 2018-08-02 20:42 | ED ---
HPI Chest Pain - HPI Summary HPI Summary: Pt is 42 y/o F who presents to [facility] c/o chest pain since 14:00. She notes that she had chest pain 3 days ago as well, but believes it was due to stress as lying down after taking Tylenol alleviated her symptoms. Pt describes todays chest pain as pressure and irritating, but not stabbing or severe. Rates pain intensity as 7/10 at triage. Notes SOB. Denies feeling sweaty, lightheaded, dizzy, or nauseous. She also denies having abdominal pain, problems with bowel movements, urinary symptoms, headaches, or visual problems. PMHx of interstitial lung disease. - History of Current Complaint Chief Complaint: [facility] Time Seen by Provider: 08/02/18 20:34 Hx Obtained From: Patient Hx Last Menstrual Period: 5 yrs ago Onset/Duration: Started Hours Ago, Still Present Time of Onset: 14:00 Timing: Constant Current Severity: Moderate Pain Intensity: 7 Pain Scale Used: 0-10 Numeric Character: Pressure/Squeezing Aggravating Factor(s): Nothing Alleviating Factor(s): Rest Associated Signs and Symptoms: Positive: Chest Pain, Recent Stress, Shortness of Breath. Negative: Vision Changes, Headaches, Lightheadedness, Diaphoresis, Nausea, Abdominal Pain - Additional Pertinent History Primary Care Physician: EDWIN - Allergy/Home Medications Allergies/Adverse Reactions: Allergies Allergy/AdvReac Type Severity Reaction Status Date / Time amoxicillin Allergy Severe Anaphylatic Verified 06/30/18 18:13 Shock clavulanic acid Allergy Severe Anaphylatic Verified 06/30/18 18:13 [From Augmentin] Shock strawberry Allergy Severe Swelling Verified 06/30/18 18:13 Of Face,Lips,& Throat phenytoin [From Dilantin] Allergy Shortness Verified 06/30/18 18:13 of Breath sweet potato Allergy Swelling Verified 06/30/18 18:13 Of Face,Lips,& Throat PMH/Surg Hx/FS Hx/Imm Hx Endocrine/Hematology History: Reports: Hx Anticoagulant Therapy - ASA daily, Hx Thyroid Disease - HYPO Denies: Hx Diabetes Cardiovascular History: Reports: Hx Aneurysm - brain , Hx Angina, Hx Coronary Artery Disease, Hx Deep Vein Thrombosis - states in right arm 2017, Hx Hypercholesterolemia, Hx Hypertension, Hx Valvular Heart Disease - heart murmur , Other Cardiovascular Problems/Disorders - DVT, MURMUR, H PYLORI, CARDIOMEGLY Denies: Hx Angioplasty, Hx Atrial Fibrillation, Hx Congestive Heart Failure, Hx Myocardial Infarction, Hx Pacemaker/ICD Respiratory History: Reports: Hx Asthma, Hx Chronic Obstructive Pulmonary Disease (COPD), Hx Seasonal Allergies, Hx Sleep Apnea - does not use machine, Other Respiratory Problems/Disorders GI History: Reports: Hx Gall Bladder Disease - gall bladder removed, Hx Gastroesophageal Reflux Disease, Other GI Disorders - H pylori History: Reports: Hx Kidney Stones - states she thinks she has kidney stones Denies: Hx Renal Disease Comment Only: Other Problems/Disorders - states she thinks she has kidney stones Musculoskeletal History: Reports: Hx Back Problems - slipped disks Denies: Hx Arthritis, Hx Osteoporosis Sensory History: Reports: Hx Contacts or Glasses Denies: Hx Cataracts, Hx Hearing Aid Opthamlomology History: Reports: Hx Contacts or Glasses Denies: Hx Cataracts Neurological History: Reports: Hx Headaches, Hx Migraine, Hx Transient Ischemic Attacks (TIA) - Unconfirmed by patient, Other Neuro Impairments/Disorders - Cerebral Aneurysm Denies: Hx Dementia, Hx Seizures Psychiatric History: Reports: Hx Anxiety, Hx Depression, Hx Panic Disorder - SEVERE ANXIETY, Hx Bipolar Disorder Denies: Hx Substance Abuse - Surgical History Surgery Procedure, Year, and Place: [id number] REMOVED-TUBAL LIGATION-APPENDIX 08/15/14. BRAIN ANEURYSM-STENTS/COIL [facility] [place] 06/01/16 -1.5 ONLY. BRONCHOSCOPY WITH TRANSBRONCHIAL BIOPSY 07/26/16 Hx Anesthesia Reactions: Yes - takes a little bit longer for patient to wake up - Immunization History Date of Tetanus Vaccine: 2013 Date of Influenza Vaccine: 2013 Infectious Disease History: No Infectious Disease History: Denies: Hx Hepatitis, Hx Human Immunodeficiency Virus (HIV), Traveled Outside the [place] in Last 30 Days - Family History Known Family History: Positive: Cardiac Disease, Other - brain aneurysm Family History: Positive fhx of CAD - Social History Alcohol Use: None Hx Substance Use: No Substance Use Type: Reports: None Hx Tobacco Use: Yes Smoking Status (MU): Heavy Every Day Tobacco Smoker Type: Cigarettes Amount Used/How Often: 8 cigarettes a day recently---but usually 2ppd for 30 years Length of Time of Smoking/Using Tobacco: 20+ years Have You Smoked in the Last Year: Yes Review of Systems Negative: Skin Diaphoresis Eyes: Negative Positive: Chest Pain Positive: Shortness Of Breath Negative: Abdominal Pain, Diarrhea, Nausea Genitourinary: Negative Negative: Headache All Other Systems Reviewed And Are Negative: Yes Physical Exam - Summary Physical Exam Summary: Appearance: Well-appearing, Well-nourished, obese, lying in bed comfortably Skin: Warm, dry, no obvious rash Eyes: sclera anicteric, no conjunctival pallor ENT: mucous membranes moist, pharynx appears normal Neck: Supple, nontender Respiratory: Clear to auscultation, no signs of respiratory distress Cardiovascular: Normal S1, S2. No murmurs. Normal distal pulses in tibial and radial bilaterally. Abdomen: Soft, nontender, normal active bowel sounds present Musculoskeletal: Normal, Strength/ROM Intact Neurological: A&Ox3, awake and alert, mentation is normal, speech is fluent and appropriate Psychiatric: affect is normal, does not appear anxious or depressed Triage Information Reviewed: Yes Vital Signs On Initial Exam: Initial Vitals Temp Pulse Resp BP Pulse Ox 97.8 F 104 22 137/103 91 08/02/18 18:38 08/02/18 18:38 08/02/18 18:38 08/02/18 18:38 08/02/18 18:38 Vital Signs Reviewed: Yes Diagnostics - Vital Signs Vital Signs Temp Pulse Resp BP Pulse Ox 08/02/18 18:38 97.8 F 104 22 137/103 91 - Laboratory Lab Results: Lab Results 08/02/18 08/02/18 08/02/18 Range/Units 20:05 20:05 20:05 WBC 6.5 (3.5-10.8) 10^3/ul RBC 4.89 (4.00-5.40) 10^6/ul Hgb 13.9 (12.0-16.0) g/dl Hct 42 (35-47) % MCV 86 (80-97) fL MCH 28 (27-31) pg MCHC 33 (31-36) g/dl RDW 15 (10.5-15) % Plt Count 153 (150-450) 10^3/ul MPV 9.8 (7.4-10.4) fL Neut % (Auto) 66.5 % Lymph % (Auto) 18.3 % Greenlee % (Auto) 14.1 % Eos % (Auto) 0.2 % Baso % (Auto) 0.9 % Absolute Neuts (auto) 4.3 (1.5-7.7) 10^3/ul Absolute Lymphs (auto) 1.2 (1.0-4.8) 10^3/ul Absolute Monos (auto) 0.9 H (0-0.8) 10^3/ul Absolute Eos (auto) 0 (0-0.6) 10^3/ul Absolute Basos (auto) 0.1 (0-0.2) 10^3/ul Absolute Nucleated RBC 0 10^3/ul Nucleated RBC % 0.2 Sodium 140 (135-145) mmol/L Potassium 3.9 (3.5-5.0) mmol/L Chloride 105 (101-111) mmol/L Carbon Dioxide 28 (22-32) mmol/L Anion Gap 7 (2-11) mmol/L BUN 15 (6-24) mg/dL Creatinine 0.90 (0.51-0.95) mg/dL Est GFR ( Amer) 82.3 (>60) Est GFR (Non-Af Amer) 68.0 (>60) BUN/Creatinine Ratio 16.7 (8-20) Glucose 171 H (70-100) mg/dL Lactic Acid 2.0 (0.5-2.0) mmol/L Calcium 9.6 (8.6-10.3) mg/dL Total Bilirubin 0.20 (0.2-1.0) mg/dL AST 23 (13-39) U/L ALT 35 (7-52) U/L Alkaline Phosphatase 97 (34-104) U/L Troponin I Pending Total Protein 7.7 (6.4-8.9) g/dL Albumin 4.7 (3.2-5.2) g/dL Globulin 3.0 (2-4) g/dL Albumin/Globulin Ratio 1.6 (1-3) Result Diagrams: 08/02/18 20:05 08/02/18 20:05 Lab Statement: Any lab studies that have been ordered have been reviewed, and results considered in the medical decision making process. - Radiology CXR Radiology Interpretation Completed By: ED Physician Summary of Radiographic Findings: CXR consistent with interstitial lung disease. No acute findings. Pending official report. - EKG 18:47 Cardiac Rate: Tachycardia - 101 bpm EKG Rhythm: Sinus Tachycardia ST Segment: Normal Summary of EKG Findings: Sinus tachycardia at 101 bpm. P waves, QRS complex, and T waves are within normal limits, T waves and intervals are normal, no ischemic changes. 22:39 Cardiac Rate: NL - 95 bpm EKG Rhythm: Sinus Rhythm ST Segment: Normal Summary of EKG Findings: NSR at 95 BPM, P waves, QRS complex, and T waves are within normal limits, T waves and intervals are normal, no ischemic changes. This is a normal EKG. Chest Pain Course/Dx - Course Course Of Treatment: Pt is 42 y/o F who presents to [facility] c/o chest pain since 14:00. Pt describes pain as pressure and irritating, but not stabbing or severe. Notes SOB. Denies feeling sweaty, lightheaded, dizzy, or nauseous. She also denies having abdominal pain, problems with bowel movements, urinary symptoms, headaches, or visual problems. PMHx of interstitial lung disease. Physical exam was normal. EKG taken at 18:47 shows sinus tachycardia at 101 bpm. P waves, QRS complex, and T waves are within normal limits, T waves and intervals are normal, no ischemic changes. EKG taken at 22:39 revealed NSR at 95 BPM, P waves, QRS complex, and T waves within normal limits, T waves and intervals are normal, no ischemic changes. CXR consistent with interstitial lung disease, no acute findings. Labs were normal. Pt will be discharged home with diagnosis of chest pain. Pt is agreeable with this plan. - Diagnoses Provider Diagnoses: Chest pain Discharge - Sign-Out/Discharge Documenting (check all that apply): Patient Departure - Discharge Patient Received Moderate/Deep Sedation with Procedure: No - Discharge Plan Condition: Good Disposition: HOME Patient Education Materials: Chest Pain (ED) Referrals: Claudio Gauthier MD [Primary Care Provider] - 3 Days Additional Instructions: We did not find any sign of a heart problem on the tests we ran tonight. You can followup with your primary care provider and coil shaper for further testing. - Billing Disposition and Condition Condition: GOOD Disposition: Home - Attestation Statements Document Initiated by Scribe: Yes Documenting Scribe: Erica Sherwood Provider For Whom Scribe is Documenting (Include Credential): Dr. Joao Samson MD Scribe Attestation: I, Erica Sherwood, scribed for Dr. Joao Samson MD on 08/06/18 at 1414. Scribe Documentation Reviewed: Yes Provider Attestation: The documentation as recorded by the diamondibe, Erica Sherwood accurately reflects the service I personally performed and the decisions made by me, Dr. Joao Samson MD Status of Scribe Document: Viewed
[2018-08-02 23:20] VITALS: BP 125/72
== END | disposition home or self-care (01) ==
LOC: ED 18:28
DX: R07.9 Chest pain, unspecified (principal); R06.02 Shortness of breath; Z88.0 Allergy status to penicillin; Z79.01 Long term (current) use of anticoagulants; I25.10 Atherosclerotic heart disease of native coronary artery without angina pectoris; I10 Essential (primary) hypertension; Z87.442 Personal history of urinary calculi; F17.210 Nicotine dependence, cigarettes, uncomplicated
CPT/HCPCS: 36415; 71046; 80053; 83605; 84484; 85025; 93005; 99283

== ENCOUNTER 2018-08-03 15:25 | Inpatient (IN) | payer OTHER ==
[2018-08-03] MEDS ORDERED: NS 0.9% 1000 ML** 1,000 ML IV ONE (15:50)
--- NOTE | 2018-08-03 15:57 | ED ---
Substance Abuse/Use - HPI Summary HPI Summary: This patient is a 42 year old F presenting to [facility] accompanied by boyfriend with a chief complaint of possible overdose that began HAND FORMER. The patient rates the pain 0/10 in severity. Symptoms aggravated by nothing. Symptoms alleviated by nothing. Patient denies SI and CP. Patient states she took 2 or 3 oxycodone, and she normally takes 1 or 2. Patient states she doesnt believe she took too many oxycodone and she denies taking any other drugs. - History Of Current Complaint Chief Complaint: EDOverdose Stated Complaint: POSS OVERDOSE Hx Obtained From: Patient Hx Last Menstrual Period: 5 yrs ago ?: No Onset/Duration of Drug/ETOH Abuse: Hours Ingestion History: Type/Name Of Drug - Oxycodone Overdose Characteristics: Oral Severity Initially: Mild Severity Currently: Mild Aggravating Factor(s): Nothing Alleviating Factor(s): Nothing Associated Signs And Symptoms: Other: - Negative SI and CP - Allergies/Home Medications Allergies/Adverse Reactions: Allergies Allergy/AdvReac Type Severity Reaction Status Date / Time amoxicillin Allergy Severe Anaphylatic Verified 06/30/18 18:13 Shock clavulanic acid Allergy Severe Anaphylatic Verified 06/30/18 18:13 [From Augmentin] Shock strawberry Allergy Severe Swelling Verified 06/30/18 18:13 Of Face,Lips,& Throat phenytoin [From Dilantin] Allergy Shortness Verified 06/30/18 18:13 of Breath sweet potato Allergy Swelling Verified 06/30/18 18:13 Of Face,Lips,& Throat PMH/Surg Hx/FS Hx/Imm Hx Previously Healthy: No Endocrine/Hematology History: Reports: Hx Anticoagulant Therapy - ASA daily, Hx Thyroid Disease - HYPO Denies: Hx Diabetes Cardiovascular History: Reports: Hx Aneurysm - brain , Hx Angina, Hx Coronary Artery Disease, Hx Deep Vein Thrombosis - states in right arm 2017, Hx Hypercholesterolemia, Hx Hypertension, Hx Valvular Heart Disease - heart murmur , Other Cardiovascular Problems/Disorders - DVT, MURMUR, H PYLORI, CARDIOMEGLY Denies: Hx Angioplasty, Hx Atrial Fibrillation, Hx Congestive Heart Failure, Hx Myocardial Infarction, Hx Pacemaker/ICD Respiratory History: Reports: Hx Asthma, Hx Chronic Obstructive Pulmonary Disease (COPD), Hx Seasonal Allergies, Hx Sleep Apnea - does not use machine, Other Respiratory Problems/Disorders GI History: Reports: Hx Gall Bladder Disease - gall bladder removed, Hx Gastroesophageal Reflux Disease, Other GI Disorders - H pylori History: Reports: Hx Kidney Stones - states she thinks she has kidney stones Denies: Hx Renal Disease Comment Only: Other Problems/Disorders - states she thinks she has kidney stones Musculoskeletal History: Reports: Hx Back Problems - slipped disks Denies: Hx Arthritis, Hx Osteoporosis Sensory History: Reports: Hx Contacts or Glasses Denies: Hx Cataracts, Hx Hearing Aid Opthamlomology History: Reports: Hx Contacts or Glasses Denies: Hx Cataracts Neurological History: Reports: Hx Headaches, Hx Migraine, Hx Transient Ischemic Attacks (TIA) - Unconfirmed by patient, Other Neuro Impairments/Disorders - Cerebral Aneurysm Denies: Hx Dementia, Hx Seizures Psychiatric History: Reports: Hx Anxiety, Hx Depression, Hx Panic Disorder - SEVERE ANXIETY, Hx Bipolar Disorder Denies: Hx Substance Abuse - Surgical History Surgery Procedure, Year, and Place: [id number] REMOVED-TUBAL LIGATION-APPENDIX 08/15/14. BRAIN ANEURYSM-STENTS/COIL [facility] [place] 06/01/16 -1.5 ONLY. BRONCHOSCOPY WITH TRANSBRONCHIAL BIOPSY 07/26/16 Hx Anesthesia Reactions: Yes - takes a little bit longer for patient to wake up - Immunization History Date of Tetanus Vaccine: 2013 Date of Influenza Vaccine: 2013 Infectious Disease History: No Infectious Disease History: Denies: Hx Hepatitis, Hx Human Immunodeficiency Virus (HIV), Traveled Outside the [place] in Last 30 Days - Family History Known Family History: Positive: Cardiac Disease, Other - brain aneurysm Family History: Positive fhx of CAD - Social History Occupation: Unemployed Lives: With Family Alcohol Use: None Hx Substance Use: No Substance Use Type: Reports: None Hx Tobacco Use: Yes Smoking Status (MU): Heavy Every Day Tobacco Smoker Type: Cigarettes Amount Used/How Often: 8 cigarettes a day recently---but usually 2ppd for 30 years Length of Time of Smoking/Using Tobacco: 20+ years Have You Smoked in the Last Year: Yes Review of Systems Negative: Chest Pain Psychological: Other - Negative SI All Other Systems Reviewed And Are Negative: Yes Physical Exam - Summary Physical Exam Summary: GENERAL: Patient is a well-developed and nourished female who is lying comfortable in the stretcher. Patient is not in any acute respiratory distress. HEAD AND FACE: Normocephalic EYES: PERRLA, EOMI x 2. EARS: Hearing grossly intact. MOUTH: Oropharynx within normal limits. NECK: Supple, trachea is midline, no adenopathy, no JVD, no carotid bruit. CHEST: Symmetric, no tenderness at palpation LUNGS: Clear to auscultation bilaterally. No wheezing or crackles. CVS: Regular rate and rhythm, S1 and S2 present, no murmurs or gallops appreciated. ABDOMEN: Soft, non-tender. Bowel sounds are normal. No abdominal abnormal pulsations. EXTREMITIES: Full ROM in all major joints, no edema, no cyanosis or clubbing. NEURO: No acute neurological deficits. Speech is normal and follows commands. Patient is very altered. SKIN: Dry and warm Triage Information Reviewed: Yes Vital Signs On Initial Exam: Initial Vitals Temp Pulse Resp BP Pulse Ox 97.8 F 106 18 132/82 77 08/03/18 15:29 08/03/18 15:29 08/03/18 15:29 08/03/18 15:29 08/03/18 15:29 Vital Signs Reviewed: Yes Diagnostics - Vital Signs Vital Signs Temp Pulse Resp BP Pulse Ox 08/03/18 15:29 97.8 F 106 18 132/82 77 - Laboratory Result Diagrams: 08/04/18 05:40 08/04/18 05:40 Lab Statement: Any lab studies that have been ordered have been reviewed, and results considered in the medical decision making process. - Radiology CXR Radiology Interpretation Completed By: Radiologist Summary of Radiographic Findings: CXR reveals, per radiologist, stable chronic interstitial opacification. ED physician has reviewed this radiology report. - EKG 1540 Cardiac Rate: Tachycardia EKG Rhythm: Sinus Rhythm - 113 BPM Summary of EKG Findings: An EKG taken at 1540 reveals sinus tachycardia at 113 BPM with PACs. Re-Evaluation - Re-Evaluation First Eval Re-Evaluation Time: 15:50 Change: Improved Comment: After Narcan, patient is wide awake and SPO2 is now 96%. Course/Dx - Course Course Of Treatment: This patient is a 42 year old F presenting to [facility] accompanied by boyfriend with a chief complaint of overdose that began HAND FORMER. Patient states she took 2 or 3 oxycodone, and she normally takes 1 or 2. Patient states she doesnt believe she took too many oxycodone and she denies taking any other drugs. On arrival patient was found to have an SPO2 of 69% on room air. Physical Exam Findings: Patient was very altered. After Narcan, patient is wide awake and SPO2 is now 96%. An EKG taken at 1540 reveals sinus tachycardia at 113 BPM with PACs. CXR reveals, per radiologist, stable chronic interstitial opacification. Bloodwork and UA obtained. In the ED course the patient was given fluids and Narcan. Consult with Dr. Basilio (glove examiner) at 1744. He agrees to admit the patient for further evaluation. The patient is agreeable with this plan. - Diagnoses Provider Diagnoses: Overdose - Critical Care Time Critical Care Time: 30-74 min Discharge - Sign-Out/Discharge Documenting (check all that apply): Patient Departure - Admit to [facility] Patient Received Moderate/Deep Sedation with Procedure: No - Discharge Plan Condition: Stable Disposition: ADMITTED TO [facility] - Billing Disposition and Condition Condition: STABLE Disposition: Admitted to [facility] - Attestation Statements Document Initiated by Scribe: Yes Documenting Scribe: Nedra Miller Provider For Whom Kurtis is Documenting (Include Credential): Dr. Prince Tinoco MD Scribe Attestation: INedra, scribed for Dr. Prince Tinoco MD on 08/05/18 at 1508. Scribe Documentation Reviewed: Yes Provider Attestation: The documentation as recorded by the Nedra carranza accurately reflects the service I personally performed and the decisions made by me, Dr. Prince Tinoco MD Status of Scribe Document: Viewed
[2018-08-03] MEDS ORDERED: Naloxone Nasal Spray* 4 MG/0.1 ML NASAL.SPR INTRANASAL ONE (16:02)
[2018-08-03] MEDS: Naloxone* 0.4 MG/ML 1 ML VIAL IV PUSH ONE ×3 (16:03→16:44)
[2018-08-03 16:17] LABS: ABS Basophils 0 10^3/ul (0-0.2); ABS Eosinophils 0 10^3/ul (0-0.6); ABS Lymphocytes 1.1 10^3/ul (1.0-4.8); ABS Monocytes 0.9 10^3/ul (0-0.8); ABS Neutrophils 6.9 10^3/ul (1.5-7.7); ABS Nucleated RBC 0 10^3/ul; Eosinophil % 0.2 %; Hematocrit 43 % (35-47); Hemoglobin 14.3 g/dl (12.0-16.0); Lymphocyte % 12.2 %; Mean Corpuscular HGB Conc 33 g/dl (31-36); Mean Corpuscular Hemoglobin 29 pg (27-31); Mean Corpuscular Volume 86 fL (80-97); Mean Platelet Volume 10.1 fL (7.4-10.4); Nucleated Red Blood Cells % 0.1; Platelet Count 160 10^3/ul (150-450); Red Cell Distribution Width 15 % (10.5-15)
[2018-08-03 16:26] LABS: INR 0.97 (0.77-1.02)
[2018-08-03 16:38] LABS: ALT 49 U/L (7-52); AST 30 U/L (13-39); Albumin 4.8 g/dL (3.2-5.2); Albumin/Globulin Ratio 1.4 (1-3); Alkaline Phosphatase 98 U/L (34-104); Anion Gap 8 mmol/L (2-11); BUN/Creatinine Ratio 16.5 (8-20); Blood Urea Nitrogen 15 mg/dL (6-24); CO2 Carbon Dioxide 29 mmol/L (22-32); Chloride 103 mmol/L (101-111); EGFR African American 81.3 (>60); EGFR Non-African American 67.2 (>60); Globulin 3.4 g/dL (2-4); Glucose 132 mg/dL (70-100); Magnesium 2.2 mg/dL (1.9-2.7); Potassium 4.6 mmol/L (3.5-5.0); Sodium 140 mmol/L (135-145); Total Protein 8.2 g/dL (6.4-8.9)
[2018-08-03 16:44] LABS: HCG Pregnancy < 0.60 mIU/mL
[2018-08-03 16:57] LABS: Acetaminophen < 15 mcg/mL; Alcohol < 10 mg/dL (<10); Salicylate < 2.50 mg/dL (<30)
[2018-08-03 17:11] LABS: TSH (Thyroid Stimulating Horm) 20.78 mcIU/mL (0.34-5.60)
[2018-08-03] MEDS: NALOXONE DRIP for Opiate Reversal - ED ONLY IV SCH ×6 (17:59→23:03)
[2018-08-03] MEDS ORDERED: Benzonatate CAP* 100 MG PO PRN (18:18)
[2018-08-03] MEDS ORDERED: Albuterol/Ipratropium NEB.SOL* Albuterol 2.5 MG/Ipratropium 0.5 MG 3 ML INH PRN (18:18)
[2018-08-03] MEDS ORDERED: Nicotine Inhaler* 10 MG AMP INH PRN (18:18)
[2018-08-03] MEDS ORDERED: Baclofen TAB* 20 MG PO PRN (18:18)
[2018-08-03 18:28] LABS: Urine Appearance Cloudy; Urine Bacteria Absent (Absent); Urine Bilirubin Negative (Negative); Urine Blood Negative (Negative); Urine Color Yellow; Urine Glucose Negative (Negative); Urine Ketones Trace (Negative); Urine Nitrite Negative (Negative); Urine Protein 1+(30 mg/dL) (Negative); Urine Red Blood Cell Trace(0-2/hpf) (Absent); Urine Specific Gravity 1.025 (1.010-1.030); Urine Squamous Epithelial Cell Present (Absent); Urine Urobilinogen Negative (Negative); Urine White Blood Cell Trace(0-5/hpf) (Absent)
[2018-08-03 18:47] LABS: Barbiturates Urine Screen None Detected (None Detect); Benzodiazepine Urine Screen Presumptive Positive (None Detect); Urine Cannabinoids Screen None Detected (None Detect)
--- NOTE | 2018-08-03 18:47 | HP ---
H&P (Free Text) History and Physical: [facility] History and Physical CC: opiate overdose HPI: 42F with hypothyroid, GONZALO/OHS, ild, copd, bipolar disorder, chronic pain presents with lethargy. The patient was brought in by her boyfriend. He states that she took her mothers oxycodone but doesn't know the dosage. She was intially hypoxic with an o2 sat in the 60s. After iv narcan the patients saturation improved, however, she continued to desaturate and was placed on a narcan drip. The patient is lethargic and intermittently falls asleep. When awake she denies suicide attempt. She states she didn't know that her mothers medication was that strong. The patient also has ild and wears 4L via NC at baseline. This is not the first accidental overdose the patient has had. ROS - as per HPI PMHx - hypothyroid, GONZALO/OHS, ild, copd, bipolar disorder, chronic pain PSHx - denies SocHx - intermittently smokes. chronic opiate use, no etoh FamHx - CAD, Seizures Allergies amoxicillin Allergy (Severe, Verified 06/30/18 18:13) clavulanic acid [From Augmentin] Allergy (Severe, Verified 06/30/18 18:13) strawberry Allergy (Severe, Verified 06/30/18 18:13) phenytoin [From Dilantin] Allergy (Verified 06/30/18 18:13) sweet potato Allergy (Verified 06/30/18 18:13) PE Vital Signs: Temp Pulse Resp BP Pulse Ox 97.8 F 96 15 155/107 86 08/03/18 15:29 08/03/18 18:00 08/03/18 18:00 08/03/18 17:50 08/03/18 18:00 Gen - obese female, lethargic but arousable Heent - ncat, eomi, perrl neck - no jvd cv - s1/s2, no murmur lungs - cta, distant breath sounds abd - soft, nt ext - no cce neuro - lethargic, arousable to physical/verbal stimuli Labs Laboratory Results - last 24 hr 08/03/18 08/03/18 08/03/18 16:05 16:05 16:05 WBC 9.0 RBC 5.00 Hgb 14.3 Hct 43 MCV 86 MCH 29 MCHC 33 RDW 15 Plt Count 160 MPV 10.1 Neut % (Auto) 76.7 Lymph % (Auto) 12.2 Platte % (Auto) 10.5 Eos % (Auto) 0.2 Baso % (Auto) 0.4 Absolute Neuts (auto) 6.9 Absolute Lymphs (auto) 1.1 Absolute Monos (auto) 0.9 H Absolute Eos (auto) 0 Absolute Basos (auto) 0 Absolute Nucleated RBC 0 Nucleated RBC % 0.1 INR (Anticoag Therapy) 0.97 D-Dimer, Quantitative < 200 Sodium 140 Potassium 4.6 Chloride 103 Carbon Dioxide 29 Anion Gap 8 BUN 15 Creatinine 0.91 Est GFR ( Amer) 81.3 Est GFR (Non-Af Amer) 67.2 BUN/Creatinine Ratio 16.5 Glucose 132 H Lactic Acid Calcium 10.0 Magnesium 2.2 Total Bilirubin 0.30 AST 30 ALT 49 Alkaline Phosphatase 98 Ammonia Troponin I 0.00 Total Protein 8.2 Albumin 4.8 Globulin 3.4 Albumin/Globulin Ratio 1.4 TSH 20.78 H Beta HCG, Quant < 0.60 Urine Color Urine Appearance Urine pH Ur Specific Savage Urine Protein Urine Ketones Urine Blood Urine Nitrate Urine Bilirubin Urine Urobilinogen Ur Leukocyte Esterase Urine WBC (Auto) Urine RBC (Auto) Ur Squamous Epith Cells Urine Bacteria Hyaline Casts Urine Glucose Salicylates < 2.50 Acetaminophen < 15 Serum Alcohol < 10 08/03/18 08/03/18 08/03/18 16:05 16:05 18:12 WBC RBC Hgb Hct MCV MCH MCHC RDW Plt Count MPV Neut % (Auto) Lymph % (Auto) Platte % (Auto) Eos % (Auto) Baso % (Auto) Absolute Neuts (auto) Absolute Lymphs (auto) Absolute Monos (auto) Absolute Eos (auto) Absolute Basos (auto) Absolute Nucleated RBC Nucleated RBC % INR (Anticoag Therapy) D-Dimer, Quantitative Sodium Potassium Chloride Carbon Dioxide Anion Gap BUN Creatinine Est GFR ( Amer) Est GFR (Non-Af Amer) BUN/Creatinine Ratio Glucose Lactic Acid 1.9 Calcium Magnesium Total Bilirubin AST ALT Alkaline Phosphatase Ammonia 35 Troponin I Total Protein Albumin Globulin Albumin/Globulin Ratio TSH Beta HCG, Quant Urine Color Yellow Urine Appearance Cloudy Urine pH 5.0 Ur Specific Savage 1.025 Urine Protein 1+(30 mg/dl) A Urine Ketones Trace A Urine Blood Negative Urine Nitrate Negative Urine Bilirubin Negative Urine Urobilinogen Negative Ur Leukocyte Esterase 2+ A Urine WBC (Auto) Trace(0-5/hpf) Urine RBC (Auto) Trace(0-2/hpf) Ur Squamous Epith Cells Present A Urine Bacteria Absent Hyaline Casts Present A Urine Glucose Negative Salicylates Acetaminophen Serum Alcohol Imaging CXR 08/03 Impression: Stable chronic interstitial opacification Impression 42F with hypothyroid, GONZALO/OHS, ild, copd, bipolar disorder, chronic pain presents with accidental opiate overdose Plan Neuro - accidental overdose - narcan gtt for now - c/w risperdal/seroquel/lamictal for bipolar - psych/pain managment evals in am cv - bp stable pulm - acute on chronic hypoxic respiratory failure - 07/20 opiate overdose/copd/ild/ohs - nebs q4h prn - pulmicort neb bid - c/w dulera - bipap qhs and prn id - wbc normal - afebrile gi - gerd - ppi renal - monitor i/o - monitor lytes heme - monitor cbc endo - hypothyroid - c/w synthroid lines - piv ppx - gi/dvt full code Admit to ICU for narcan gtt and rescue bipap Critical Care Time: 60 mins
[2018-08-03] MEDS ORDERED: Enoxaparin(*) 40 MG/0.4 ML SYR SUBCUT SCH ×2 (19:00→20:00)
[2018-08-03] MEDS ORDERED: QUEtiapine TAB* 100 MG PO SCH (21:00)
[2018-08-03] MEDS ORDERED: Nicotine Patch Removal NOTE FOLLOW UP SCH (21:00)
[2018-08-03] MEDS ORDERED: Nicotine Patch Removal NOTE PATCH OFF SCH (21:00)
[2018-08-03] MEDS: risperiDONE TAB* 2 MG PO SCH (21:45)
[2018-08-03] MEDS: Mometasone/Formoter 200/5 MDI INH SCH (21:46)
[2018-08-04] MEDS: NALOXONE DRIP for Opiate Reversal - ED ONLY IV SCH ×6 (01:43→07:21)
[2018-08-04] MEDS: Budesonide NEB* 0.5 MG/2 ML NEB.SOLN INH SCH ×2 (01:57→07:27)
[2018-08-04 05:50] LABS: ABS Basophils 0 10^3/ul (0-0.2); ABS Eosinophils 0 10^3/ul (0-0.6); ABS Lymphocytes 0.9 10^3/ul (1.0-4.8); ABS Monocytes 0.6 10^3/ul (0-0.8); ABS Neutrophils 3.8 10^3/ul (1.5-7.7); ABS Nucleated RBC 0 10^3/ul; Eosinophil % 0.2 %; Hematocrit 37 % (35-47); Lymphocyte % 17.2 %; Mean Corpuscular HGB Conc 32 g/dl (31-36); Mean Corpuscular Hemoglobin 28 pg (27-31); Mean Corpuscular Volume 87 fL (80-97); Mean Platelet Volume 9.8 fL (7.4-10.4); Nucleated Red Blood Cells % 0.1; Platelet Count 121 10^3/ul (150-450); Red Blood Count 4.27 10^6/ul (4.00-5.40); Red Cell Distribution Width 15 % (10.5-15); White Blood Count 5.3 10^3/ul (3.5-10.8)
[2018-08-04] MEDS ORDERED: Levothyroxine TAB* 137 MCG TAB PO SCH (06:00)
[2018-08-04 06:16] LABS: BUN/Creatinine Ratio 16.9 (8-20); Calcium 8.6 mg/dL (8.6-10.3); EGFR African American 119.8 (>60); Magnesium 2.1 mg/dL (1.9-2.7); Potassium 4.4 mmol/L (3.5-5.0)
[2018-08-04] MEDS: Mometasone/Formoter 200/5 MDI INH SCH (07:28)
[2018-08-04] MEDS: risperiDONE TAB* 2 MG PO SCH (08:45)
[2018-08-04] MEDS ORDERED: Aspirin EC TAB* 81 MG TAB.EC PO SCH (09:00)
[2018-08-04] MEDS ORDERED: Nicotine PATCH 14 MG/24 HR* PATCH TRANSDERM SCH (09:00)
[2018-08-04] MEDS ORDERED: lamoTRIgine TAB(*) 100 MG PO SCH (09:00)
[2018-08-04] MEDS ORDERED: Pantoprazole TAB * 40 MG TAB PO SCH (09:00)
[2018-08-04] MEDS ORDERED: Gabapentin CAP(*) 100 MG PO ONE (09:02)
[2018-08-04 10:30] VITALS: BP 149/84
--- NOTE | 2018-08-04 12:30 | DS ---
DISCHARGE SUMMARY: DATE OF ADMISSION: 08/03/18 DATE OF DISCHARGE: 08/04/18 HISTORY AND HOSPITAL COURSE: This is a 42-year-old white female with a history of bipolar disorder and interstitial lung disease who was admitted with an opioid overdose, requiring a naloxone drip. After patient awakened, she claimed that the overdose was accidental, non-intentional, and she denied suicide ideation. The morning following admission, patient was off the Narcan drip and was alert, oriented, and clinically stable, and was subsequently discharged home. Patient will followup with her primary care physician. MEDICATIONS: Home medications were not changed and included: 1. Gabapentin 100 mg p.o. 3 times a day. 2. Seroquel 300 mg in the evening. 3. Xanax 1 mg 3 times a day. 4. Albuterol nebs q.4 hours p.r.n. 5. Baclofen 20 mg 3 times a day p.r.n. 6. Pulmicort 1 mg inhaled twice a day. 7. Lamotrigine 200 mg p.o. daily and 50 mg p.o. in the evening. 8. Omeprazole 20 mg p.o. daily. 9. Dulera 2 puffs twice daily. 10. Levothyroxine 137 mcg daily. 11. Risperdal 4 mg b.i.d. DISCHARGE DIAGNOSIS: Unintentional opioid overdose. OTHER DIAGNOSES: 1. Bipolar disorder. 2. Interstitial lung disease. 3. Hypothyroidism. TIME FOR DISCHARGE: 30 minutes. [id number]/[facility] #: [id number] MTDD
== END 2018-08-04 10:30 | disposition home or self-care (01) | DRG 812 ==
LOC: ED 15:25 → ICU 18:01
PROVIDERS: ADMIT Internal Medicine; ATTEND Internal Medicine Critical Care Medicine
DX: T40.2X1A Poisoning by other opioids, accidental (unintentional), initial encounter (principal); E66.2 Morbid (severe) obesity with alveolar hypoventilation; Z68.41 Body mass index [BMI] 40.0-44.9, adult; J84.9 Interstitial pulmonary disease, unspecified; E03.9 Hypothyroidism, unspecified; I25.10 Atherosclerotic heart disease of native coronary artery without angina pectoris; I10 Essential (primary) hypertension; J44.9 Chronic obstructive pulmonary disease, unspecified; K21.9 Gastro-esophageal reflux disease without esophagitis; E78.00 Pure hypercholesterolemia, unspecified; G43.909 Migraine, unspecified, not intractable, without status migrainosus; F41.0 Panic disorder [episodic paroxysmal anxiety]; G89.29 Other chronic pain; F17.210 Nicotine dependence, cigarettes, uncomplicated; F31.9 Bipolar disorder, unspecified; Z86.73 Personal history of transient ischemic attack (TIA), and cerebral infarction without residual deficits; Y92.009 Unspecified place in unspecified non-institutional (private) residence as the place of occurrence of the external cause; Z86.718 Personal history of other venous thrombosis and embolism; Z90.49 Acquired absence of other specified parts of digestive tract; Z88.1 Allergy status to other antibiotic agents; Z88.0 Allergy status to penicillin; Z88.8 Allergy status to other drugs, medicaments and biological substances; Z91.018 Allergy to other foods; Z56.0 Unemployment, unspecified; Z82.49 Family history of ischemic heart disease and other diseases of the circulatory system
CPT/HCPCS: 36415; 36600; 71045; 80048; 80053; 80307; 80320; 80329; 81003; 81015; 82140; 82803; 83605; 83735; 84443; 84484; 84702; 85025; 85379; 85610; 87040; 87086; 87641; 93005; 94640; 94660; 99285; A9270-GY; G0480; J1650; J2310

== ENCOUNTER 2018-08-18 08:58 | Inpatient (IN) | payer OTHER ==
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
[2018-08-18] MEDS ORDERED: LORazepam INJ* 2 MG/ML 1 ML VIAL IM ONE (09:06)
[2018-08-18] MEDS ORDERED: Ziprasidone IM INJ* 20 MG/ML VIAL IM ONE (09:06)
[2018-08-18] MEDS ORDERED: KETAMINE HCL* 50 MG/ML 10 ML VIAL ONE (09:25)
[2018-08-18] MEDS ORDERED: KETAMINE HCL* 50 MG/ML 10 ML VIAL IM ONE (09:47)
[2018-08-18 10:29] LABS: Hematocrit 45 % (35-47); Hemoglobin 14.5 g/dl (12.0-16.0); Mean Corpuscular HGB Conc 32 g/dl (31-36); Mean Corpuscular Hemoglobin 27 pg (27-31); Mean Corpuscular Volume 85 fL (80-97); Mean Platelet Volume 9.3 fL (7.4-10.4); Platelet Count 191 10^3/ul (150-450); Red Blood Count 5.29 10^6/ul (4.00-5.40); Red Cell Distribution Width 15 % (10.5-15)
[2018-08-18 10:34] LABS: INR 0.96 (0.77-1.02)
[2018-08-18 10:44] LABS: Urine Appearance Cloudy; Urine Bacteria Absent (Absent); Urine Bilirubin Negative (Negative); Urine Blood 1+ (Negative); Urine Color Yellow; Urine Glucose Negative (Negative); Urine Ketones Negative (Negative); Urine Nitrite Negative (Negative); Urine Protein 1+(30 mg/dL) (Negative); Urine Red Blood Cell Trace(0-2/hpf) (Absent); Urine Specific Gravity 1.024 (1.010-1.030); Urine Squamous Epithelial Cell Present (Absent); Urine Urobilinogen Negative (Negative); Urine White Blood Cell Trace(0-5/hpf) (Absent)
[2018-08-18] MEDS ORDERED: NS 0.9% 1000 ML** 1,000 ML IV ONE (10:44)
[2018-08-18 10:46] LABS: ALT 39 U/L (7-52); AST 21 U/L (13-39); Albumin 4.8 g/dL (3.2-5.2); Albumin/Globulin Ratio 1.5 (1-3); Alkaline Phosphatase 88 U/L (34-104); Anion Gap 14 mmol/L (2-11); BUN/Creatinine Ratio 21.6 (8-20); Blood Urea Nitrogen 21 mg/dL (6-24); CO2 Carbon Dioxide 25 mmol/L (22-32); Chloride 104 mmol/L (101-111); Creatine Kinase 128 U/L (10-223); EGFR African American 75.5 (>60); EGFR Non-African American 62.4 (>60); Globulin 3.2 g/dL (2-4); Glucose 124 mg/dL (70-100); Magnesium 2.2 mg/dL (1.9-2.7); Potassium 3.2 mmol/L (3.5-5.0); Sodium 143 mmol/L (135-145)
[2018-08-18 10:47] LABS: Troponin I 0.01 ng/mL (<0.04)
[2018-08-18 10:58] LABS: ABS Basophils 0.1 10^3/ul (0-0.2); ABS Eosinophils 0 10^3/ul (0-0.6); ABS Lymphocytes 1.1 10^3/ul (1.0-4.8); ABS Monocytes 1.5 10^3/ul (0-0.8); ABS Neutrophils 9.3 10^3/ul (1.5-7.7); ABS Nucleated RBC 0 10^3/ul; Alcohol < 10 mg/dL (<10); Eosinophil % 0 %; Lymphocyte % 9.4 %; Nucleated Red Blood Cells % 0; Salicylate < 2.50 mg/dL (<30)
[2018-08-18 11:01] LABS: Barbiturates Urine Screen None Detected (None Detect); Benzodiazepine Urine Screen Presumptive Positive (None Detect); Urine Cannabinoids Screen None Detected (None Detect)
[2018-08-18] MEDS ORDERED: Levofloxacin 750 MG IVPREMIX(* 750 MG/150 ML BAG IVPB ONE (11:01)
[2018-08-18] MEDS ORDERED: KCL 10 MEQ/50 ML IVPREMIX* 10 MEQ/50 ML BAG IV ONE (11:04)
[2018-08-18 11:12] LABS: TSH (Thyroid Stimulating Horm) 15.29 mcIU/mL (0.34-5.60)
[2018-08-18 11:16] LABS: Acetaminophen 3 mcg/mL
[2018-08-18] MEDS ORDERED: Albuterol/Ipratropium NEB.SOL* Albuterol 2.5 MG/Ipratropium 0.5 MG 3 ML INH PRN (12:00)
[2018-08-18] MEDS ORDERED: Iohexol 300* (CONTRAST) 10 ML SDV IV ONE (12:51)
[2018-08-18] MEDS: Levothyroxine INJ* 100 MCG/5 ML VIAL IV SCH (13:59)
[2018-08-18] MEDS ORDERED: DEXMEDETOMIDINE IVPB ONE (14:00)
[2018-08-18] MEDS ORDERED: Dexmedetomidine* 400 MCG in NS 0.9% 100 ML* 96 ML IVPB SCH (14:00)
[2018-08-18] MEDS ORDERED: NS 0.9% IVPB ONE (14:00)
[2018-08-18] MEDS: Pantoprazole IV* 40 MG IV SCH (14:01)
[2018-08-18] MEDS ORDERED: fentaNYL* 50 MCG/ML 2 ML VIAL (100 MCG VIAL) ONE (14:02)
[2018-08-18 14:03] LABS: Hematocrit 42 % (35-47); Hemoglobin 13.5 g/dl (12.0-16.0); Mean Corpuscular HGB Conc 32 g/dl (31-36); Mean Corpuscular Hemoglobin 27 pg (27-31); Mean Corpuscular Volume 85 fL (80-97); Mean Platelet Volume 9.6 fL (7.4-10.4); Platelet Count 168 10^3/ul (150-450); Red Blood Count 4.96 10^6/ul (4.00-5.40); Red Cell Distribution Width 15 % (10.5-15); White Blood Count 12.2 10^3/ul (3.5-10.8)
[2018-08-18 14:09] LABS: Activated Partial Thrombo Time 31.6 seconds (26.0-36.3); INR 0.93 (0.77-1.02)
[2018-08-18] MEDS: KCL 10 MEQ/50 ML IVPREMIX* 10 MEQ/50 ML BAG IV SCH ×4 (14:09→16:50)
[2018-08-18 14:15] LABS: ABS Basophils 0 10^3/ul (0-0.2); ABS Eosinophils 0 10^3/ul (0-0.6); ABS Lymphocytes 1.1 10^3/ul (1.0-4.8); ABS Monocytes 1.6 10^3/ul (0-0.8); ABS Neutrophils 9.5 10^3/ul (1.5-7.7); ABS Nucleated RBC 0 10^3/ul; EGFR African American 90.4 (>60); EGFR Non-African American 74.7 (>60); Eosinophil % 0.1 %; Magnesium 2.2 mg/dL (1.9-2.7); Nucleated Red Blood Cells % 0; Phosphorus 3.9 mg/dL (2.5-5.0)
[2018-08-18 14:23] LABS: Influenza A Molecular NEGATIVE (Negative); Influenza B Molecular NEGATIVE (Negative)
[2018-08-18] MEDS: Gabapentin CAP(*) 100 MG PO SCH ×2 (14:42→20:11)
--- NOTE | 2018-08-18 14:55 | HP ---
HISTORY AND PHYSICAL: DATE OF ADMISSION: CHIEF COMPLAINT: Altered mental status. HISTORY OF PRESENT ILLNESS: The patient is a 42-year-old female with a past medical history of multiple medical conditions including hypothyroidism, obstructive sleep apnea, COPD, bipolar disorder, chronic pain disorder, and history of pain abuse. She was recently admitted to the hospital on 08/03/18 with opioid overdose. She comes to the emergency room via ambulance after her boyfriend found her altered in the morning. I spoke with the boyfriend in the emergency room. He states that she woke up agitated, not making sense, moving around un-purposefully. He called the ambulance which brought her to the emergency room. In the emergency room, the patient was noted to be agitated, uncontrollable. She was initially given Ativan without much response. Ultimately, she was given ketamine resulting in obtundation. Subsequently, we were called to further evaluate the patient for admission to the ICU. At the time of my evaluation, the patient was lethargic and unresponsive. She was breathing appropriately. Her vitals were adequate. Her pupils were reactive. She did move her extremities. She was at the time on Vapotherm to maintain saturations. Past medical history and social history obtained and reviewed in her medical records and noted in the history of presenting illness. ALLERGIES: Include AMPICILLIN, CLAVULANIC ACID, strawberries, PHENYTOIN and sweet potatoes. FAMILY HISTORY: Positive for coronary artery disease and seizures. SOCIAL HISTORY: As per the boyfriend, she does intermittently smoke, has been known to use illicit drugs in the past, denies any alcohol abuse at this time. REVIEW OF SYSTEMS: Unable to be obtained, as per HPI. PHYSICAL EXAMINATION GENERAL: I found a middle-aged female, in no distress. She was not responsive to voice or tactile stimulation. She opened her eyes spontaneously, however, was lethargic during the time. VITAL SIGNS: Her pulse was 90, respiratory rate 14 to 15, saturating 97%, blood pressure was 103/89. HEENT: Mucous membranes are pink and moist. Anicteric, acyanotic. Oral mucosa , there is no erythema or exudate noted. NECK: Supple. There is no JVD. No lymphadenopathy. LUNGS: She had crackles bilaterally. There were diminished breath sounds on the right side. CARDIOVASCULAR: S1, S2, regular. No murmurs, rubs or gallops. ABDOMEN: Soft, nontender. Positive bowel sounds. EXTREMITIES: There was no edema, cyanosis, or clubbing noted. NEUROLOGICALLY: She was obtunded, not responding. DIAGNOSTIC STUDIES/LAB DATA: Laboratory workup completed today shows WBC count of 12, hemoglobin of 14.5, hematocrit of 45, platelets of 191. Her ABG consistent with pH of 7.30, pCO2 of 51, pO2 of 65. Sodium 143, potassium 3.2, chloride of 104, bicarb of 25, BUN of 21, creatinine of 0.97, glucose of 124, lactic acid was 4.1. Her LFTs were within normal limits. UA was negative for ketones, +1 protein, bacteria were absent. Toxicology screen was positive for benzos. Radiographic imaging completed today; a chest x-ray with a right and left lung opacity, right greater than left. EKG showed sinus rhythm with no acute changes suggestive of cardiac ischemia. IMPRESSION: This is a 42-year-old female who has had multiple admissions with altered mentation, has a past medical history of psychiatric illness. Presents now with altered mentation. Initially, she was agitated and uncooperative in the emergency room. She was given ketamine for sedation. Currently, she sedated. She is maintaining her respirations and her airway. Her hemodynamics appear to be stable. The etiology of the agitation is unclear, possibly related to underlying psychiatric illness exacerbation or medication disuse. The patient also noted to have respiratory acidosis. Chest x-ray consistent with possible pneumonia. She has been given Levaquin in the emergency room. Remainder of her organ system appeared to be stable. PLAN: Continue antibiotic therapy for possible pneumonia. Start BiPAP therapy and repeat ABG. Continue to observe in the ICU, she may need to be intubated if she is unable to maintain her respirations or protect her airway. We will initiate her home psych medications after review with pharmacy with regarding polypharmacy and potential interaction. Precedex for sedation. CT scan of the chest has been requested for further evaluation of opacity in the lungs. We will continue to do to neuro checks while she is here to see if there is improvement over time as her sedation wears off. GI prophylaxis, DVT prophylaxis have been initiated. Renal, we will continue to monitor ins and outs and lytes. Endocrine, her TSH at presentation was 15.29, which is elevated. initiate IV Synthroid. There are no signs of hypothyroidism crisis or myxedema. [id number]/[facility] #: [id number] [facility]
[2018-08-18] MEDS: QUEtiapine TAB* 300 MG PO SCH (18:31)
[2018-08-18] MEDS: risperiDONE TAB* 2 MG PO SCH (20:10)
[2018-08-18] MEDS: lamoTRIgine TAB(*) 25 MG PO SCH (20:10)
[2018-08-18] MEDS: Heparin VIAL(*) 5000 UNITS/ML VIAL (FIVE THOUSAND) SUBCUT SCH (20:19)
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
[2018-08-18 20:44] LABS: Albumin 4.4 g/dL (3.2-5.2); Albumin/Globulin Ratio 1.5 (1-3); BUN/Creatinine Ratio 24.4 (8-20); Calcium 9.5 mg/dL (8.6-10.3); EGFR African American 91.6 (>60); EGFR Non-African American 75.7 (>60); Potassium 4.6 mmol/L (3.5-5.0); Total Bilirubin 0.3 mg/dL (0.2-1.0); Total Protein 7.4 g/dL (6.4-8.9)
[2018-08-18] MEDS: Mometasone/Formoter 200/5 MDI INH SCH (23:07)
[2018-08-19] MEDS ORDERED: Dexmedetomidine* 400 MCG in NS 0.9% 100 ML* 96 ML IVPB SCH (04:00)
[2018-08-19] MEDS: Dexmedetomidine* 400 MCG in NS 0.9% 100 ML* 96 ML IVPB SCH ×2 (04:07→09:54)
[2018-08-19] MEDS ORDERED: Levothyroxine TAB* 137 MCG TAB PO SCH (06:00)
[2018-08-19 06:19] LABS: Hematocrit 42 % (35-47); Hemoglobin 13.8 g/dl (12.0-16.0); Mean Corpuscular HGB Conc 33 g/dl (31-36); Mean Corpuscular Hemoglobin 28 pg (27-31); Mean Corpuscular Volume 85 fL (80-97); Mean Platelet Volume 9.2 fL (7.4-10.4); Platelet Count 160 10^3/ul (150-450); Red Cell Distribution Width 16 % (10.5-15); White Blood Count 8.6 10^3/ul (3.5-10.8)
[2018-08-19] MEDS: Levothyroxine INJ* 100 MCG/5 ML VIAL IV SCH (06:22)
[2018-08-19 06:37] LABS: Albumin 4.4 g/dL (3.2-5.2); Albumin/Globulin Ratio 1.4 (1-3); Calcium 9.5 mg/dL (8.6-10.3); EGFR African American 113.7 (>60); Globulin 3.1 g/dL (2-4); Potassium 4.1 mmol/L (3.5-5.0); Total Bilirubin 0.4 mg/dL (0.2-1.0); Total Protein 7.5 g/dL (6.4-8.9)
[2018-08-19 06:56] LABS: ABS Basophils 0.1 10^3/ul (0-0.2); ABS Eosinophils 0 10^3/ul (0-0.6); ABS Lymphocytes 0.8 10^3/ul (1.0-4.8); ABS Neutrophils 6.9 10^3/ul (1.5-7.7); ABS Nucleated RBC 0 10^3/ul; Eosinophil % 0.1 %; Lymphocyte % 9.6 %; Nucleated Red Blood Cells % 0.1
[2018-08-19] MEDS: Mometasone/Formoter 200/5 MDI INH SCH ×2 (07:37→20:02)
[2018-08-19] MEDS ORDERED: Perflutren Lipid Microsphere* 3 ML VIAL ONE (08:53)
[2018-08-19] MEDS: Pantoprazole IV* 40 MG IV SCH (09:55)
[2018-08-19] MEDS: Heparin VIAL(*) 5000 UNITS/ML VIAL (FIVE THOUSAND) SUBCUT SCH ×2 (09:55→20:04)
--- NOTE | 2018-08-19 10:53 | PN ---
Progress Note - Progress Note Date of Service: 08/19/18 - Pulmonary progress note Note: Pt seen and examined at bedside. Overnight events noted. Pt known to me from out pt evaluation. Pt was admitted yesterday for AMS. She was barely responsive to painful stimuli last night. She was able to protect her airway. She was noted to have acute on chronic hypoxic and hypercapnic resp failure. In ED was combative, rec'd Ketamine, geodon 20 IM. She was placed on BiPAP. Tox showing benzo only (no opiates). Labs notable for lactic 4, normalized this am, TSH 15, WBC 12 She is improved this morning. Denies any issues. Reports having stress with personal issues. Significant other at bedside. ROS: All 12 systems reviewed, negative other than stated above. Vital Signs Temp Pulse Resp BP Pulse Ox 96.6 F 82 15 124/81 96 08/19/18 08:00 08/19/18 11:00 08/19/18 11:00 08/19/18 10:32 08/19/18 11:00 Active Medications Generic Name Dose Route Start Last Admin Trade Name Freq PRN Reason Stop Dose Admin Albuterol/Ipratropium 1 neb 08/18/18 12:00 Duoneb (Albuterol 2.5 Mg/Ipratropium 0.5 Mg) INH Q4H PRN SOB/WHEEZING Aspirin 81 mg 08/19/18 09:00 08/19/18 10:57 Aspirin Ec Tab* PO 81 mg DAILY DANIELA Administration Gabapentin 100 mg 08/18/18 14:00 08/19/18 10:57 Neurontin Cap(*) PO 100 mg TID DANIELA Administration Heparin Sodium (Porcine) 5,000 units 08/18/18 21:00 08/19/18 09:55 Heparin Vial(*) SUBCUT 5,000 units Q12HR DANIELA Administration Levofloxacin/Dextrose 750 mg in 150 mls @ 100 mls/hr 08/19/18 11:00 08/19/18 10:57 Levaquin 750 Mg Ivpremix(*) IVPB 100 mls/hr Q24H DANIELA Administration Dexmedetomidine HCl 400 mcg/ 100 mls @ 17.69 mls/hr 08/19/18 04:15 08/19/18 09:54 Sodium Chloride IVPB 17.69 mls/hr Q5H DANIELA Administration Protocol 0.6 MCG/KG/HR Lamotrigine 200 mg 08/19/18 09:00 08/19/18 10:57 Lamictal Tab(*) PO 200 mg DAILY DANIELA Administration Lamotrigine 50 mg 08/18/18 21:00 08/18/18 20:10 Lamictal Tab(*) PO Not Given BEDTIME DANIELA Levothyroxine Sodium 100 mcg 08/20/18 06:00 Synthroid Inj* IV 0600 DANIELA Mometasone Furoate/Formoterol Fumar 2 puff 08/18/18 21:00 08/19/18 07:37 Dulera 200/5 Mdi* INH Not Given BID DANIELA Pantoprazole Sodium 40 mg 08/18/18 13:00 08/19/18 09:55 Protonix Iv* IV 40 mg DAILY DANIELA Administration Quetiapine Fumarate 300 mg 08/18/18 18:00 08/18/18 18:31 Seroquel Tab* PO Not Given QPM DANIELA Risperidone 4 mg 08/18/18 21:00 08/19/18 10:57 Risperdal* PO 4 mg BID DANIELA Administration O/E: pt in NAD HEENT: PERRLA, No JVD Lungs: Diminished air entry b/l, no wheeze CVS: S1, S2+, tacycardic Abd: Obses, BS+ Ext: Normal ROM Neuro: ALert, awake this am, no focal deficits I/R: 42 y o morbidly obese f with significant smoking history, with h/o ILD, chronic hypoxic and hypercapnic resp failure, GONZALO, psychiatric history, bipolar disorder, chronic pain on opiates, not been abusing recently, drug screen negative for everything except for benzos, who had taken Alprazolam prior to admission after argument with son, brought in for AMS, was responsive to painful stimuli on admission. Mental status improved this am, she is at baseline. Unclear etiology of mental status changes, likely drug overdose with anxiety meds resulting in acute on chronic hypercapnic and hypoxic resp failure. She has h/o use of illicit drugs in past, drug screen negative however unclear if she took any synthetic amphetamines that might not show up on drg screen. She also has hypothyroidism, TSH still elevated. Increased dose of her Levothyroxine from 137 to 150. Will need rpt TSH as out pt in 4 weeks. -continue BiPAP at night and during daytime naps -Home medications on hold (risperidone, seroquel, Lamictal, Star). To be restarted. -Interstital lung dz/COPD - Stable, CTA was reviewed and was discussed with pt today -No signs of sepsis, can d/c Levofloxacin -c/w Nebs - Leukocytosis resolved, lactate normalized - D/c Donaldson -Regular diet
[2018-08-19] MEDS: Gabapentin CAP(*) 100 MG PO SCH ×3 (10:57→20:04)
[2018-08-19] MEDS: lamoTRIgine TAB(*) 100 MG PO SCH (10:57)
[2018-08-19] MEDS: risperiDONE TAB* 2 MG PO SCH ×2 (10:57→20:04)
[2018-08-19] MEDS: Aspirin EC TAB* 81 MG TAB.EC PO SCH (10:57)
[2018-08-19] MEDS: Levofloxacin 750 MG IVPREMIX(* 750 MG/150 ML BAG IVPB SCH (10:57)
--- NOTE | 2018-08-19 11:20 | ECHO ---
Patient: LAURIE RIVERO [facility] [place] Rec#: [id number] : 1975 Date: 08/19/2018 Age: 42y Height: 165.1 cm / 65.0 in Weight: 90.72 kg / 199.9 lbs Sex: F BSA: 1.98 Room#: ICU 7 Admit Date#: 08/18/2018 Type: Inpatient Referring: Pee Combs Reading: Rodrick Gresham MD [employer] Sales: Mally Hector,HAYDEECS,RDMS CC: Claudio Gauthier Transthoracic Echocardiogram Indication: CHF BP: 140/82 HR: 67 Rhythm: NSR Findings History: COPD, GONZALO, HTN, smoker Technical Comments: The study is technically difficult. The study is technically limited due to the patient's history of COPD. The study is technically limited due to patient being on BIPAP during study. Left Ventricle: The left ventricular chamber size is normal. Mild to moderate concentric left ventricular hypertrophy is observed. Global left ventricular wall motion and contractility are within normal limits. There is normal left ventricular systolic function. The estimated ejection fraction is 55-60%. There is no consistent Doppler evidence of clinically significant diastolic dysfunction. Left Atrium: The left atrium is mildly dilated. Right Ventricle: The right ventricular chamber size and systolic function are within normal limits. Right Atrium: The right atrium is slightly dilated. Aortic Valve: The aortic valve is trileaflet. Systolic excursion of the aortic valve is normal. There is no evidence of aortic regurgitation. There is no evidence of aortic stenosis. Mitral Valve: The mitral valve leaflets appear normal. There is no evidence of mitral regurgitation. There is no evidence of mitral stenosis. Tricuspid Valve: The tricuspid valve leaflets are normal. There is trace tricuspid regurgitation. Unable to estimate the right ventricular systolic pressure. Pulmonic Valve: The pulmonic valve structure is not well visualized. There is no evidence of pulmonic regurgitation. Pericardium: There is no significant pericardial effusion. Aorta: The ascending aorta is not well visualized. There is no dilatation of the aortic arch. The aortic root is normal in size. Pulmonary Artery: The main pulmonary artery is not well visualized. Venous: The inferior vena cava appears normal in size. There is an approximate 50% respiratory change in the inferior vena cava dimension. Contrast: Definity was used to optimize study. A total of 5.5 ml was used. Conclusions Mild to moderate concentric left ventricular hypertrophy is observed. Global left ventricular wall motion and contractility are within normal limits. There is normal left ventricular systolic function. The estimated ejection fraction is 55-60%. There is no evidence of aortic stenosis. There is no evidence of mitral regurgitation. There is trace tricuspid regurgitation. Unable to estimate the right ventricular systolic pressure. There is no significant pericardial effusion. Measurements Name Value Normal Range RVIDd (AP) 2D 2.7 cm (0.9 - 2.6) RAd ISD 4CH 5.1 cm (3.4 - 4.9) RA (A4C)W 3.6 cm (2.9 - 4.6) IVSd (2D) 1.4 cm (0.6 - 1) LVPWd (2D) 1.3 cm (0.6 - 1) LVIDd (2D) 4.3 cm (3.6 - 5.4) LVIDs (2D) 2.8 cm - LV FS (2D) 35 % (25 - 45) Aortic Annulus 2 cm (1.4 - 2.6) Ao root diameter (2D) 2.8 cm (2.1 - 3.5) Aortic arch 2.4 cm (1.8 - 3.4) LA dimension (AP) 2D 4 cm (2.3 - 3.8) LAd ISD 4CH 4.8 cm (2.9 - 5.3) LA ISD 4CH W 4.6 cm (2.5 - 4.5) Name Value Normal Range LA ESV SP 4CH (A/L) 49.65 ml - LA ESV SP 2CH (A/L) 52.89 ml - LA ESV BP (A/L) 55.56 ml - LA ESV BP (A/L) index 28 ml/m2 - LA ESV SP 4CH (MOD) 43.96 ml - LA ESV SP 2CH (MOD) 50.23 ml - Name Value Normal Range MV E-wave Vmax 0.6 m/sec - MV deceleration time 259 msec - MV A-wave Vmax 0.8 m/sec - MV E:A ratio 0.8 ratio - P. vein S-wave Vmax 0.4 m/sec - P. vein D-wave Vmax 0.2 m/sec - P. vein S:D Vmax ratio 1.8 ratio - P. vein A-wave duration 121 msec - LV septal e' Vmax 0.06 m/sec - LV lateral e' Vmax 0.09 m/sec - LV E:e' septal ratio 10 ratio - LV E:e' lateral ratio 7 ratio - Name Value Normal Range AV Vmax 1.4 m/sec - AV VTI 30 cm - AV peak gradient 8 mmHg - AV mean gradient 4.5 mmHg - LVOT Vmax 1 m/sec - LVOT VTI 20 cm - LVOT peak gradient 4 mmHg - LVOT mean gradient 1.8 mmHg - JAMEEL Vmax 0.8 m/sec - Name Value Normal Range RAP 8 mmHg - IVC diameter 1.7 cm - Name Value Normal Range PV Vmax 0.7 m/sec - PV peak gradient 2 mmHg -
[2018-08-19] MEDS: lamoTRIgine TAB(*) 25 MG PO SCH (20:00)
[2018-08-19] MEDS: QUEtiapine TAB* 300 MG PO SCH (20:13)
[2018-08-19] MEDS ORDERED: PROCHLORPERAZINE INJ 5 MG/ML 2 ML VIAL IV PRN (21:25)
[2018-08-20] MEDS ORDERED: Ketorolac INJ* 15 MG/ML 1 ML VIAL IV PUSH ONE (05:02)
[2018-08-20] MEDS: Levothyroxine TAB* 150 MCG TAB PO SCH (05:16)
[2018-08-20] MEDS ORDERED: Levothyroxine INJ* 100 MCG/5 ML VIAL IV SCH (06:00)
[2018-08-20] MEDS ORDERED: Levothyroxine TAB* 137 MCG TAB PO SCH (06:00)
[2018-08-20 07:10] LABS: ABS Basophils 0 10^3/ul (0-0.2); ABS Eosinophils 0 10^3/ul (0-0.6); ABS Lymphocytes 0.9 10^3/ul (1.0-4.8); ABS Monocytes 1.1 10^3/ul (0-0.8); ABS Neutrophils 4.4 10^3/ul (1.5-7.7); ABS Nucleated RBC 0 10^3/ul; Eosinophil % 0.2 %; Hematocrit 41 % (35-47); Hemoglobin 13.6 g/dl (12.0-16.0); Lymphocyte % 14.1 %; Mean Corpuscular HGB Conc 34 g/dl (31-36); Mean Corpuscular Hemoglobin 28 pg (27-31); Mean Corpuscular Volume 84 fL (80-97); Mean Platelet Volume 9.1 fL (7.4-10.4); Nucleated Red Blood Cells % 0; Platelet Count 141 10^3/ul (150-450); Red Blood Count 4.83 10^6/ul (4.00-5.40); Red Cell Distribution Width 15 % (10.5-15); White Blood Count 6.4 10^3/ul (3.5-10.8)
[2018-08-20] MEDS: Mometasone/Formoter 200/5 MDI INH SCH ×2 (08:46→19:52)
[2018-08-20] MEDS: risperiDONE TAB* 2 MG PO SCH ×2 (10:05→20:03)
[2018-08-20] MEDS: lamoTRIgine TAB(*) 100 MG PO SCH (10:05)
[2018-08-20] MEDS: Gabapentin CAP(*) 100 MG PO SCH ×3 (10:06→20:02)
[2018-08-20] MEDS: Aspirin EC TAB* 81 MG TAB.EC PO SCH (10:06)
[2018-08-20] MEDS: Pantoprazole TAB * 40 MG TAB PO SCH (10:06)
[2018-08-20] MEDS: Heparin VIAL(*) 5000 UNITS/ML VIAL (FIVE THOUSAND) SUBCUT SCH ×2 (10:07→20:04)
[2018-08-20] MEDS: Levofloxacin 750 MG IVPREMIX(* 750 MG/150 ML BAG IVPB SCH (13:00)
--- NOTE | 2018-08-20 16:46 | PN ---
Subjective Date of Service: 08/20/18 Interval History: Seen and examined with BF at bedside Feels SOB but reports she "always feels short of breath" Walked to bathroom with increased need of O2, tachypnea and tachycardia >120 Anxious to be discharged home Objective Active Medications: Albuterol/Ipratropium (Duoneb (Albuterol 2.5 Mg/Ipratropium 0.5 Mg)) 1 neb INH Q4H PRN PRN Reason: SOB/WHEEZING Aspirin (Aspirin Ec Tab*) 81 mg PO DAILY [facility] Last Admin: 08/20/18 10:06 Dose: 81 mg Gabapentin (Neurontin Cap(*)) 100 mg PO TID [facility] Last Admin: 08/20/18 15:11 Dose: 100 mg Heparin Sodium (Porcine) (Heparin Vial(*)) 5,000 units SUBCUT Q12HR [facility] Last Admin: 08/20/18 10:07 Dose: 5,000 units Levofloxacin/Dextrose (Levaquin 750 Mg Ivpremix(*)) 750 mg in 150 mls @ 100 mls /hr IVPB Q24H [facility] Last Admin: 08/20/18 13:00 Dose: 100 mls/hr Lamotrigine (Lamictal Tab(*)) 200 mg PO DAILY [facility] Last Admin: 08/20/18 10:05 Dose: 200 mg Lamotrigine (Lamictal Tab(*)) 50 mg PO BEDTIME [facility] Last Admin: 08/19/18 20:00 Dose: 50 mg Levothyroxine Sodium (Synthroid Tab*) 150 mcg PO DAILY@0600 [facility] Last Admin: 08/20/18 05:16 Dose: 150 mcg Mometasone Furoate/Formoterol Fumar (Dulera 200/5 Mdi*) 2 puff INH BID [facility] Last Admin: 08/20/18 08:46 Dose: 2 puff Pantoprazole Sodium (Protonix Tab*) 40 mg PO DAILY [facility] Last Admin: 08/20/18 10:06 Dose: 40 mg Prochlorperazine Edisylate (Compazine Inj*) 5 mg IV Q6H PRN PRN Reason: NAUSEA/VOMITING Last Admin: 08/19/18 21:33 Dose: 5 mg Quetiapine Fumarate (Seroquel Tab*) 300 mg PO QPM [facility] Last Admin: 08/19/18 20:13 Dose: 300 mg Risperidone (Risperdal*) 4 mg PO BID DANIELA Last Admin: 08/20/18 10:05 Dose: 4 mg Vital Signs - 8 hr 08/20/18 08/20/18 08/20/18 08:51 10:06 15:11 Temperature Pulse Rate 98 Respiratory 20 16 18 Rate Blood Pressure (mmHg) O2 Sat by Pulse 100 Oximetry 08/20/18 08/20/18 15:25 16:27 Temperature 97.5 F Pulse Rate 102 Respiratory 20 16 Rate Blood Pressure 160/90 (mmHg) O2 Sat by Pulse 95 Oximetry Oxygen Devices in Use Now: Nasal Cannula - 5L NS (baseline) Appearance: obese, lying deg in bed, NAD Eyes: No Scleral Icterus, PERRLA Ears/Nose/Mouth/Throat: NL Teeth, Lips, Gums, Clear Oropharnyx Neck: NL Appearance and Movements; NL JVP, Trachea Midline Respiratory: Symmetrical Chest Expansion and Respiratory Effort, - - diminished Cardiovascular: RRR Abdominal: NL Sounds; No Tenderness; No Distention, No Hepatosplenomegaly Lymphatic: No Axillary Adenopathy Extremities: - - 1+ le edema Neurological: Alert and Oriented x 3 Result Diagrams: 08/20/18 06:59 08/19/18 06:11 Microbiology and Other Data: Microbiology 08/18/18 10:30 Urine Culture - Final Urine No Growth (<1,000 CFU/mL) 08/18/18 13:45 Nasal Screen MRSA (PCR) - Final Nasal Mrsa Not Detected Influenza Types A,B Antigen - Final Specimen received for Influenza A/B Molecular testing Assess/Plan/Problems-Billing Assessment: 42 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 Mental status now approximating baseline Remains on levaquin (2) Bipolar disorder Comment: all home meds restarted (3) GONZALO (obstructive sleep apnea) Comment: Chronic resp failure 2/2 GONZALO, COPD, restrictive deficit on home trilogy PPV BiPAP at night and during naps Pt indicates she had taken a nap prior to her development of AMS without PPV (4) Hypothyroid Comment: synthroid increased check T3 and T4 (5) DVT prophylaxis Comment: SQH
[2018-08-20] MEDS: QUEtiapine TAB* 300 MG PO SCH (20:02)
[2018-08-20] MEDS: lamoTRIgine TAB(*) 25 MG PO SCH (20:03)
[2018-08-21] MEDS: Levothyroxine TAB* 150 MCG TAB PO SCH (06:25)
[2018-08-21] MEDS: Mometasone/Formoter 200/5 MDI INH SCH (08:04)
[2018-08-21] MEDS: Gabapentin CAP(*) 100 MG PO SCH ×2 (08:27→13:22)
[2018-08-21] MEDS: Aspirin EC TAB* 81 MG TAB.EC PO SCH (08:27)
[2018-08-21] MEDS: Pantoprazole TAB * 40 MG TAB PO SCH (08:28)
[2018-08-21] MEDS: lamoTRIgine TAB(*) 100 MG PO SCH (08:28)
[2018-08-21] MEDS: risperiDONE TAB* 2 MG PO SCH (08:28)
[2018-08-21] MEDS: Heparin VIAL(*) 5000 UNITS/ML VIAL (FIVE THOUSAND) SUBCUT SCH (08:28)
[2018-08-21] MEDS: Levofloxacin 750 MG IVPREMIX(* 750 MG/150 ML BAG IVPB SCH (10:43)
[2018-08-21] MEDS ORDERED: Acetaminophen TAB* 325 MG PO PRN (11:24)
[2018-08-21 11:38] VITALS: BP 130/73
--- NOTE | 2018-08-22 00:22 | DS ---
CC: Dr. Gauthier * DISCHARGE SUMMARY: DATE OF ADMISSION: 08/18/18 DATE OF DISCHARGE: 08/21/18 PRIMARY CARE PROVIDER: Dr. Gauthier. DISPOSITION ON DISCHARGE: Home. CONDITION ON DISCHARGE: Stable. PRIMARY DIAGNOSES: Alteration in mental status, suspected secondary to hypercarbic and hypoxic respiratory failure, hypothyroidism. SECONDARY DIAGNOSES: Include obstructive sleep apnea, chronic obstructive pulmonary disease, bipolar disorder, chronic pain, anxiety, history of medication abuse. MEDICATIONS ON DISCHARGE: Unchanged from admission include: 1. Risperidone 4 mg twice daily. 2. Lamictal 200 mg in the morning and 50 mg at night. 3. Seroquel 300 mg at night. 4. Omeprazole 20 mg daily. 5. Dulera 200/5 two puffs twice daily. 6. Gabapentin 100 mg 3 times a day. 7. Baclofen 20 mg 3 times a day as needed. 8. Aspirin 81 mg daily. 9. Albuterol and ipratropium nebulizer every 4 hours as needed. 10. Alprazolam 1 mg 3 times a day. 11. Increased dose of levothyroxine to 150 mcg daily. IMAGING PERFORMED DURING THE HOSPITAL STAY: CT chest. Impression: Again seen mild ground-glass densities; hypoventilatory changes with bilateral dependent lungs and increased interstitial parenchymal density; pleural base density at the left lower lobe, lingula, slightly larger when compared to April 2018. Worsening atelectasis is the favored diagnosis. Abutting the dependent anterior portion of the major fissure, the right major fissure has a 5-mm pulmonary nodule. It is most consistent with a lymph node as opposed to a true pulmonary nodule. Recommendation for followup management of an incidental pulmonary nodule less than 6 mm is no risk for a low-risk patient or 12 months in a high-risk patient, which includes this patient with a history of tobacco use. HISTORY OF PRESENT ILLNESS AND HOSPITAL COURSE: This is a 42-year-old female with past medical history as outlined in the history of present illness on the day of admission including hypothyroidism, obstructive sleep apnea, COPD, bipolar disorder, recent hospital stay earlier in April with an opioid overdose, presents to the hospital after she was found altered at home by her boyfriend. The patient recounts an argument with her son, after which she took a nap and then wound up in the emergency room altered and in the intensive care unit where she improved on BiPAP. The patient, prior to discharge, indicates that her son ultimately indicated he found her without her oxygen on after she took a nap after the argument. However, there is suspicion for abuse of her benzodiazepines leading to hypercapnic hypoxic respiratory failure, although removal of her oxygen in her sleep may have also contributed. The patient was recommended to wear her BiPAP at home at night as well as during naps. While she uses it to sleep, she has not been using it for naps, although intends to use it now. She received antibiotics on presentation; however, they were quickly tapered off. On the day of discharge, she was on her home 5 L nasal cannula. She ambulates minimally at home only from the couch to her bed once a day. Here she was able to ambulate at her baseline amount of shortness of breath. There were no complications during the the patient's hospital stay. At followup please; 1. Ensure the patient is adherent with BiPAP at night and during naps. 2. Follow up pulmonary nodule as indicated. 3. No other specific labs or vitals. Reasons to return to the hospital including, but not limited to, recurrent or worsening symptoms, shortness of breath, chest pain, nausea, vomiting, lightheadedness, loss of consciousness, fever, chills, night sweats, bleeding from any source, inability to obtain or tolerate medication discussed with the patient. She acknowledged understanding. TIME SPENT: Greater than 45 minutes were spent on discharge of the patient, greater than half was spent [id number] with the patient. [id number]/[facility] #: [id number] ELIAZAR
== END 2018-08-21 13:29 | disposition home or self-care (01) | DRG 133 ==
LOC: ED 08:58 → ICU 11:22 → MEDTELE 08-19 12:10
PROVIDERS: ADMIT Internal Medicine; ATTEND Internal Medicine
PROC: 5A09357 Assistance with Respiratory Ventilation, Less than 24 Consecutive Hours, Continuous Positive Airway Pressure (ICD-10-PCS; principal; 2018-08-18)
DX: J96.21 Acute and chronic respiratory failure with hypoxia (principal); J84.9 Interstitial pulmonary disease, unspecified; E87.2 Acidosis; E66.2 Morbid (severe) obesity with alveolar hypoventilation; J96.22 Acute and chronic respiratory failure with hypercapnia; F13.10 Sedative, hypnotic or anxiolytic abuse, uncomplicated; E03.9 Hypothyroidism, unspecified; F31.9 Bipolar disorder, unspecified; G89.29 Other chronic pain; F41.9 Anxiety disorder, unspecified; I25.10 Atherosclerotic heart disease of native coronary artery without angina pectoris; E78.00 Pure hypercholesterolemia, unspecified; I10 Essential (primary) hypertension; K21.9 Gastro-esophageal reflux disease without esophagitis; F17.210 Nicotine dependence, cigarettes, uncomplicated; G43.909 Migraine, unspecified, not intractable, without status migrainosus; F41.0 Panic disorder [episodic paroxysmal anxiety]; Z82.49 Family history of ischemic heart disease and other diseases of the circulatory system; Z88.1 Allergy status to other antibiotic agents; Z79.82 Long term (current) use of aspirin; Z86.73 Personal history of transient ischemic attack (TIA), and cerebral infarction without residual deficits; Z88.0 Allergy status to penicillin; Z88.8 Allergy status to other drugs, medicaments and biological substances; Z86.718 Personal history of other venous thrombosis and embolism; Z90.49 Acquired absence of other specified parts of digestive tract; Z91.018 Allergy to other foods; Z56.0 Unemployment, unspecified; Z68.38 Body mass index [BMI] 38.0-38.9, adult
CPT/HCPCS: 36415; 36600; 70450; 71045; 71260; 80053; 80307; 80320; 80329; 81003; 81015; 82140; 82550; 82565; 82803; 83605; 83735; 84100; 84443; 84484; 84520; 85025; 85610; 85730; 87086; 87641; 93005; 93306; 94640; 94660; 99285; 99406; A9270-GY; C8929; G0480; J0780; J1644; J1885; J2060; J3010; J3480; J3486; Q9967

== ENCOUNTER 2018-08-30 11:58 | Emergency (ER) | payer OTHER ==
--- OUTSIDE RECORDS SUMMARY | 2018-08-30 12:44 | XMS REPORT | Continuity of Care Document ---
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 [address] [place] [address] Advance Directives Description No Information Available Problems Description No Information Family History Date Family Member(s) Observation Comments Father Age is Unknown Mother 66 Children 3 Siblings 3 Social History Type Date Description Comments Sex Unknown Marital Status Significant Other Lives With Children Lives With Boyfriend Occupation Unemployed Work Status Not Currently Working ETOH Use Denies alcohol use Tobacco Use Start: Unknown Patient is a current smoker, smokes every day Recreational Drug Use Denies Drug Use Smoking Status Reviewed: 08/16/18 Patient is a current smoker, smokes every day Allergies, Adverse Reactions, Alerts Date Description Reaction Status Severity Comments 07/05/2018 Augmentin Active 07/05/2018 Clavulanic Acid Active 07/05/2018 Strawberries Active 07/05/2018 Dilantin Active 07/05/2018 Zucchini Extract Active 07/05/2018 Sweet Potato Allergenic Extract Active Medications Medication Date Status Form Strength Qnty SIG Indications Ordering Provider Gabapentin 08/16/ Active Capsules 300mg 90cap si by Phill 2019 s mouth Michelet, three DO, MPH times a day as directed Risperdal / Active Tablets 3mg 1 by [...] as Unknown Sulfate 0000 ) 0.083% directed Gabapentin 07/05/ Hx Capsules 100mg 90cap take 1 Pollock, 2019 - s capsules Michelet, 08/16/ by mouth DO, MPH 2018 every 8 hours ud. chronic pain. Lamictal / Hx Tablets 150mg 1 by mouth Unknown 0000 - daily 2018 Immunizations Description No Information Available Vital Signs Date Vital Result Comment 08/16/2018 1:34pm BP Systolic 148 mmHg BP Diastolic 86 mmHg Heart Rate 82 /min Respiratory Rate 20 /min Height 66 inches 5'6" Weight 248.00 lb Pain Level 7 Pain at this time. 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 Office Visit 07/05/2018 9:00a Main Office as Michelet Pollock G89.21 Chronic pain due Of 07/19/13 DO [facility] to trauma M54.5 Low back pain J84.89 Other specified interstitial pulmonary diseases E66.01 Morbid (severe) obesity due to excess calories F31.81 Bipolar II disorder F20.89 Other schizophrenia Z79.891 care mgr (current) use of opiate analgesic F17.210 Nicotine dependence, cigarettes, uncomplicated Z13.89 Encounter for screening for other disorder Z71.89 Other specified counseling Z71.3 Dietary counseling and surveillance Plan of Treatment Future Appointment(s):08/26/2018 2:15 pm - Michelet Pollock DO MPH at Main Office as Of 07/19/1402 - Michelet Pollock DO, MPHG89.21 Chronic pain due to traumaComments:Chronic. Symptoms and complaints discussed and reviewed today. No significant changes in physical findings. Continue current medical pain management.M54.5 Low back painComments:Chronic. Symptoms and complaints discussed and reviewed today.No changes in physical findings. Patient is stable and comfortable when current medical therapy is rendered.Z79.891 senior living ( current) use of opiate analgesicNew Labs:Urine Drug Screen, Ordered: Comments:Urine drug screen sample taken today to monitor opiate use and to monitor use of illicit substances.Will discuss results at next appointment.The following tests were ordered:6 AM, AMPH, LÓPEZ, SHELLIE, BUP, CARIS, COCM, COT, ETG , FENT, MCSHSG, OPI, OXY, PCP, TAPEN, XTSY, ZOLP. ~I_A urine drug test( UDT) was ordered for this patient and collected on site today. Creatinine has been ordered as wellfor specimen validity, not for kidney function. Preliminary UDT results are not final and should not be used to determine patient care or plan of treatment. Initially a qualitative immunoassay screenwill be done. Any inconsistent or positive findings will be further tested with a more comprehensive quantitative confirmation LCMS study. It is part of the treatment process of prescribing controlledsubstances and is considered standard of care.~i_Z71.89 Other specified counselingComments:UDT was reviewed with patient. Patient counseled to not use substances for pain relief other than those prescribed, to follow directions and to take medications only as they are prescribed.Reviewed Medication Agreement and requirements for patient to continue receiving opioid therapy. Patient clearly understands and agrees. It is clearly understood that violation of the above is grounds for possible discharge. I will perform confirmatory labs and monitor closely.~B_Patient was placed on two weeks ofpain medication and is to return for UDT. ~b_AllNew Medication:Gabapentin 300 mg - si by mouth three times a day as directedComments:All above symptoms and complaints discussed as well as diagnoses reviewed.Continue trial of opioid pain management - note changes below ; injection therapy, osteopathic manipulation (OMT), PT / modalities, and consults as needed to manage chronic pain.Side effects discussed; anticipatory guidance given. Patient clearly understands and agrees with all medical treatments and suggestions. All medicines prescribed are adequate and appropriate for this patient's complaint of pain, medical history, physical, and personal goals.Goals of Treatment are to provide adequate and appropriate multidisciplinary medical pain management to increase/ maintain patient's quality of life and functionality while maintaining satisfactory side effect profile and minimizing longterm end-organ damage. Activity as toleratedContinue with PCP
[2018-08-30] MEDS ORDERED: Ketorolac INJ* 60 MG/2 ML VIAL IM ONE (13:05)
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
[2018-08-30 15:19] VITALS: BP 155/95
== END 2018-08-30 13:25 | disposition home or self-care (01) ==
LOC: ED 11:58
DX: R25.2 Cramp and spasm (principal); M62.830 Muscle spasm of back; G89.29 Other chronic pain; M54.5 Low back pain; R06.02 Shortness of breath; Z88.0 Allergy status to penicillin; Z79.01 Long term (current) use of anticoagulants; I25.10 Atherosclerotic heart disease of native coronary artery without angina pectoris; Z86.718 Personal history of other venous thrombosis and embolism; J44.9 Chronic obstructive pulmonary disease, unspecified; F17.210 Nicotine dependence, cigarettes, uncomplicated; Z86.73 Personal history of transient ischemic attack (TIA), and cerebral infarction without residual deficits
CPT/HCPCS: 96372; 99282; J1885